=== PATIENT | female | born 1985 | race African-American/Black ===

== ENCOUNTER 2017-09-23 22:29 | Emergency (ER) | payer SELFPAY ==
[~2017-09-23] VITALS: Ht 144.8 cm; Wt 95.3 kg
[2017-09-23] MEDS ORDERED: ALBU8.5H2 (22:51)
[2017-09-23] MEDS ORDERED: ONDANSETRON 4 MG (ZOFRAN) ORAL DISSOLVE TAB ONE (23:51)
[2017-09-24] MEDS ORDERED: ANTACID SUSP 30 ML UDC (MYLANTA) PO ONE
[2017-09-24] MEDS ORDERED: ONDANSETRON 4 MG/2 ML (SDV) Z0FRAN IVP ONE
[2017-09-24] MEDS ORDERED: LIDOCAINE 2% VISCOUS 15 ML UDC PO ONE
[2017-09-24] MEDS ORDERED: ONDANSETRON 4 MG (ZOFRAN) ORAL DISSOLVE TAB SL ONE
[2017-09-24] MEDS ORDERED: FAMOTIDINE 20MG/2ML IV (PEPCID) IVP ONE (00:45)
[2017-09-24 01:04] LABS: BASOPHILS % (AUTO) 0 % (0-10); BILIRUBIN,URINE NEGATIVE (NEGATIVE); CLARITY,URINE SLIGHTLY CLOUDY; COLOR,URINE YELLOW; EOSINOPHILS # (AUTO) 0.2 10^3/uL (0.0-0.3); EOSINOPHILS % (AUTO) 3 % (0-10); GLUCOSE, URINE (UA) NEGATIVE (NEGATIVE); HEMATOCRIT 29 % (35-52); HEMOGLOBIN 8.8 G/DL (11.5-16.0); KETONES,URINE NEGATIVE (NEGATIVE); LEUKOCYTE ESTERASE ,URINE 1+ (NEGATIVE); LYMPHOCYTES # (AUTO) 2.7 X 10^3 (1.0-4.0); LYMPHOCYTES % (AUTO) 39 % (12-44); MEAN CORPUSCULAR HEMOGLOBIN 20 PG (25-34); MEAN CORPUSCULAR HGB CONC 31 G/DL (32-36); MEAN CORPUSCULAR VOLUME 65 FL (80-99); MEAN PLATELET VOLUME 11.3 FL (7.4-10.4); MONOCYTES # (AUTO) 0.5 X 10^3 (0.0-1.0); MONOCYTES % (AUTO) 7 % (0-12); NEUTROPHILS # (AUTO) 3.6 X 10^3 (1.8-7.8); NEUTROPHILS % (AUTO) 52 % (42-75); NITRITE,URINE NEGATIVE (NEGATIVE); PH,URINE 6 (5-9); PLATELET COUNT 359 10^3/uL (130-400); PROTEIN,URINE NEGATIVE (NEGATIVE); RED BLOOD COUNT 4.41 10^6/uL (4.35-5.85); RED CELL DISTRIBUTION WIDTH 18.6 % (10.0-14.5); UROBILINOGEN,URINE NORMAL (NORMAL)
[2017-09-24 01:11] LABS: BACTERIA,URINE TRACE /HPF; WBC,URINE RARE /HPF
[2017-09-24 01:20] LABS: ALANINE AMINOTRANSFERASE 8 U/L (0-55); ALBUMIN 3.9 GM/DL (3.2-4.5); ALKALINE PHOSPHATASE 72 U/L (40-136); BILIRUBIN,TOTAL 0.2 MG/DL (0.1-1.0); BUN/CREATININE RATIO 11; CARBON DIOXIDE 27 MMOL/L (21-32); CHLORIDE 106 MMOL/L (98-107); CREATININE SERUM 0.65 MG/DL (0.60-1.30); GFR ESTIMATED > 60; GLUCOSE 102 MG/DL (70-105); LIPASE 33 U/L (8-78); POTASSIUM 3.6 MMOL/L (3.6-5.0); SODIUM 140 MMOL/L (135-145); TOTAL PROTEIN 7.3 GM/DL (6.4-8.2)
[2017-09-24] MEDS ORDERED: OMEP20CA12 PO (01:30)
[2017-09-24] MEDS ORDERED: AMOX500T2 PO (01:30)
[2017-09-24] MEDS ORDERED: ONDA4TAB8 SL (01:30)
[2017-09-24] MEDS ORDERED: CLAR-19 PO (01:30)
--- NOTE | 2017-09-24 01:31 | ED Abdominal Pain ---
General Chief Complaint: Abdominal/GI Problems Stated Complaint: STOMACH PAIN Nursing Triage Note: PT PRESENTS TO ER WITH COMPLAINT OF ABDOMINAL PAIN. STATES SHE JUST MOVED HERE FROM [place]. BEFORE SHE LEFT [place], PT STATES SHE HAD AN ENDOSCOPY. SHE DOES NOT REMEMBER WHAT WAS WRONG, BUT WAS PRESCRIBED MEDICINE. DOES NOT REMEMBER WHAT MEDICINE WAS. BUT STATES SHE NEVER TOOK IT DUE TO HER [place]ORD STEALING ALL HER MEDICINE Sepsis Screen: No Definite Risk Source of Information: Patient Exam Limitations: No Limitations History of Present Illness Date Seen by Provider: Sep 23, 2017 Time Seen by Provider: 23:40 Initial Comments This 32-year-old woman presents to the emergency room with "bad stomach pain" intermittently for about 2 years. Pain is worsening. She recently moved to the area from [place]. She reports endoscopy was performed in [place] last February that resulted in the diagnosis of H. pylori. She never took the medications prescribed because they were taken by her boyfriend from whom she fled. She now lives in a safe situation. Pain is accompanied by nausea. She denies alcohol or drug use but does smoke tobacco. She has not established with a local provider and she is not taking any medication for her stomach pain. Allergies and Home Medications Allergies Coded Allergies: No Known Drug Allergies (Unverified , 09/23/17) Home Medications Amoxicillin 500 Mg Tablet, 1,000 MG PO BID Prescribed by: JOSÉ MIGUEL SIERRA on 09/24/17129 Clarithromycin 500 Mg Tablet, 500 MG PO BID Prescribed by: JOSÉ MIGUEL SIERRA on 09/24/17129 Omeprazole 20 Mg Capsule.dr, 20 MG PO BID Prescribed by: JOSÉ MIGUEL SIERRA on 09/24/17129 Ondansetron 4 Mg Tab.rapdis, 4 MG SL Q4H PRN for NAUSEA/VOMITING-1ST LINE Prescribed by: JOSÉ MIGUEL SIERRA on 09/24/17129 Patient Home Medication List Home Medication List Reviewed: Yes Review of Systems Constitutional: no symptoms reported EENTM: No Symptoms Reported Respiratory: No Symptoms Reported Cardiovascular: No Symptoms Reported Gastrointestinal: See HPI Genitourinary: No Symptoms Reported Musculoskeletal: no symptoms reported Skin: no symptoms reported Psychiatric/Neurological: No Symptoms Reported Endocrine: No Symptoms Reported Hematologic/Lymphatic: No Symptoms Reported Past Wgzlkga-Wfzuol-Pavsyd Hx Patient Social History Alcohol Use: Denies Use Recreational Drug Use: No Smoking Status: Current Someday Smoker Type Used: Cigarettes Recent Foreign Travel: No Contact w/Someone Who Travel: No Recent Infectious Disease Expo: No Recent Hopitalizations: No Seasonal Allergies Seasonal Allergies: No Surgeries History of Surgeries: Yes (HERNIA) Surgeries: Abdominal (hernia repair, upper endoscopy), Section, Tubal Ligation Respiratory History of Respiratory Disorde: Yes Respiratory Disorders: Asthma Cardiovascular History of Cardiac Disorders: No Neurological History of Neurological Disord: No Reproductive System : No Last Menstrual Period: Sep 05, 2017 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 pylori) Musculoskeletal History of Musculoskeletal Dis: No Endocrine History of Endocrine Disorders: No HEENT History of HEENT Disorders: No Cancer History of Cancer: No Psychosocial History of Psychiatric Problem: No Integumentary History of Skin or Integumenta: No Blood Transfusions History of Blood Disorders: No Physical Exam Vital Signs VS - Last 72 Hours, by Label 09/23/17 22:40 Temp 97.3 Pulse 71 Resp 17 B/P (MAP) 125/73 (90) Pulse Ox 100 O2 Delivery Room Air Capillary Refill : Less Than 3 Seconds General Appearance: WD/WN, no apparent distress HEENT: PERRL/EOMI, normal ENT inspection, pharynx normal Neck: normal inspection Respiratory: lungs clear, normal breath sounds, no respiratory distress, no accessory muscle use Cardiovascular: regular rate, rhythm, no edema, no murmur Gastrointestinal: normal bowel sounds, soft, tenderness (epigastrium) Extremities: normal inspection, no pedal edema 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, no motor/sensory deficits, alert, normal mood/affect, oriented x 3 Skin: normal color, warm/dry Progress/Results/Core Measures Results/Orders Lab Results Laboratory Tests Test 09/24/17 00:50 Range/Units White Blood Count 7.0 4.3-11.0 10^3/uL Red Blood Count 4.41 4.35-5.85 10^6/uL Hemoglobin 8.8 L 11.5-16.0 G/DL Hematocrit 29 L 35-52 % Mean Corpuscular Volume 65 L 80-99 FL Mean Corpuscular Hemoglobin 20 L 25-34 PG Mean Corpuscular Hemoglobin Concent 31 L 32-36 G/DL Red Cell Distribution Width 18.6 H 10.0-14.5 % Platelet Count 359 130-400 10^3/uL Mean Platelet Volume 11.3 H 7.4-10.4 FL Neutrophils (%) (Auto) 52 42-75 % Lymphocytes (%) (Auto) 39 12-44 % Monocytes (%) (Auto) 7 0-12 % Eosinophils (%) (Auto) 3 0-10 % Basophils (%) (Auto) 0 0-10 % Neutrophils # (Auto) 3.6 1.8-7.8 X 10^3 Lymphocytes # (Auto) 2.7 1.0-4.0 X 10^3 Monocytes # (Auto) 0.5 0.0-1.0 X 10^3 Eosinophils # (Auto) 0.2 0.0-0.3 10^3/uL Basophils # (Auto) 0.0 0.0-0.1 10^3/uL Urine Color YELLOW Urine Clarity SLIGHTLY CLOUDY Urine pH 6 5-9 Urine Specific [place] 1.020 1.016-1.022 Urine Protein NEGATIVE NEGATIVE Urine Glucose (UA) NEGATIVE NEGATIVE Urine Ketones NEGATIVE NEGATIVE Urine Nitrite NEGATIVE NEGATIVE Urine Bilirubin NEGATIVE NEGATIVE Urine Urobilinogen NORMAL NORMAL MG/DL Urine Leukocyte Esterase 1+ H NEGATIVE Urine RBC (Auto) NEGATIVE NEGATIVE Urine RBC NONE /HPF Urine WBC RARE /HPF Urine Squamous Epithelial Cells 2-5 /HPF Urine Crystals NONE /LPF Urine Bacteria TRACE /HPF Urine Casts NONE /LPF Urine Mucus NEGATIVE /LPF Urine Culture Indicated NO Sodium Level 140 135-145 MMOL/L Potassium Level 3.6 3.6-5.0 MMOL/L Chloride Level 106 98-107 MMOL/L Carbon Dioxide Level 27 21-32 MMOL/L Anion Gap 7 5-14 MMOL/L Blood Urea Nitrogen 7 7-18 MG/DL Creatinine 0.65 0.60-1.30 MG/DL Estimat Glomerular Filtration Rate > 60 BUN/Creatinine Ratio 11 Glucose Level 102 70-105 MG/DL Calcium Level 9.0 8.5-10.1 MG/DL Total Bilirubin 0.2 0.1-1.0 MG/DL Aspartate Amino Transf (AST/SGOT) 15 5-34 U/L Alanine Aminotransferase (ALT/SGPT) 8 0-55 U/L Alkaline Phosphatase 72 40-136 U/L Total Protein 7.3 6.4-8.2 GM/DL Albumin 3.9 3.2-4.5 GM/DL Lipase 33 8-78 U/L Serum Test, Qualitative NEGATIVE NEGATIVE My Orders Orders - JOSÉ MIGUEL FLYNN MD Ondansetron Injection (Zofran Injectio (09/24/17 00:00) Lidocaine 2% Viscous 15 Ml (Xylocaine Vi (09/24/17 00:00) Antacid Suspension (Mylanta Suspension (09/24/17 00:00) Ondansetron Oral Dissolve Tab (Zofran (09/23/17 23:51) Ondansetron Oral Dissolve Tab (Zofran (09/24/17 00:00) Famotidine Injection (Pepcid Injection) (09/24/17 00:45) Saline Lock/Iv-Start (09/24/17 00:38) Cbc With Automated Diff (09/24/17 00:38) Comprehensive Metabolic Panel (09/24/17 00:38) Lipase (09/24/17 00:38) Ua Culture If Indicated (09/24/17 00:38) Hcg,Qualitative Serum (09/24/17 00:47) Medications Given in ED Current Medications Medications Dose Ordered Sig/Giana Route Start Time Stop Time Status Last Admin Dose Admin Al Hydrox/Mg Hydrox/Simethicone 30 ml ONCE ONCE PO 09/24/17 00:00 09/24/17 00:01 DC 09/24/17 00:08 30 ML Famotidine 20 mg ONCE ONCE IVP 09/24/17 00:45 09/24/17 00:47 DC 09/24/17 00:56 20 MG Lidocaine HCl 15 ml ONCE ONCE PO 09/24/17 00:00 09/24/17 00:01 DC 09/24/17 00:08 15 ML Ondansetron HCl 8 mg ONCE ONCE SL 09/24/17 00:00 09/24/17 00:01 DC 09/24/17 00:00 8 MG Vital Signs/I&O Vital Sign - Last 12Hours 09/23/17 22:40 Temp 97.3 Pulse 71 Resp 17 B/P (MAP) 125/73 (90) Pulse Ox 100 O2 Delivery Room Air Blood Pressure Mean: 90 Progress Note : Progress Note Patient's symptoms improved minimally with GI cocktail and Zofran. Labs were then ordered. Pepcid was ordered by IV route. Pain eventually dissipated. Labs revealed no significant abnormalities. Patient was started on treatment for H. pylori. Departure Impression Impression: Primary Impression: Epigastric pain Additional Impressions: H pylori ulcer Nausea Anemia Qualified Codes: D64.9 - Anemia, unspecified Disposition: HOME, SELF-CARE Condition: Improved Departure-Patient Inst. Decision time for Depature: 01:20 Referrals: [facility] [place],LOCAL PHYSICIAN (PCP) Primary Care Physician Patient Instructions: Acute Abdomen (Belly Pain), H. pylori Infection Add. Discharge Instructions: Complete your antibiotics as prescribed. Continue with omeprazole as a subtherapeutic for at least one month. Establish with a primary care provider soon as possible. Return to emergency room if symptoms worsen. Zofran ( ondansetron) has been prescribed for nausea if needed. All discharge instructions reviewed with patient and/or family. Voiced understanding. Scripts Ondansetron (Zofran Odt) 4 Mg Tab.rapdis 4 MG SL Q4H Y for NAUSEA/VOMITING-1ST LINE, #10 TAB Prov: JOSÉ MIGUEL FLYNN MD 09/24/17 Amoxicillin (Amoxicillin) 500 Mg Tablet 1000 MG PO BID, #54 TAB Prov: JOSÉ MIGUEL FLYNN MD 09/24/17 Clarithromycin (Clarithromycin) 500 Mg Tablet 500 MG PO BID, #28 TAB Prov: JOSÉ MIGUEL FLYNN MD 09/24/17 Omeprazole (Omeprazole) 20 Mg Capsule.dr 20 MG PO BID, #60 CAP Prov: JOSÉ MIGUEL FLYNN MD 09/24/17 JOSÉ MIGUEL FLYNN MD Sep 24, 2017 01:31
[2017-09-24 01:40] VITALS: BP 128/80
== END 2017-09-24 01:40 | disposition home or self-care (01) ==
LOC: ER 22:32
DX: K25.9 Gastric ulcer, unspecified as acute or chronic, without hemorrhage or perforation (principal); B96.81 Helicobacter pylori [H. pylori] as the cause of diseases classified elsewhere; D64.9 Anemia, unspecified; J45.909 Unspecified asthma, uncomplicated; F17.210 Nicotine dependence, cigarettes, uncomplicated; Z87.19 Personal history of other diseases of the digestive system; Z98.51 Tubal ligation status; Z87.59 Personal history of other complications of pregnancy, childbirth and the puerperium
CPT/HCPCS: 36415; 80053; 81000; 83690; 84703; 85025; 96374

== ENCOUNTER 2017-11-22 16:58 | Emergency (ER) | payer SELFPAY ==
[~2017-11-22] VITALS: Ht 144.8 cm; Wt 96.2 kg
[~2017-11-22 16:58] MED LIST: ALBU8.5H2; AMOX500T2 PO; CLAR-19 PO; OMEP20CA12 PO; ONDA4TAB8 SL
--- NOTE | 2017-11-22 18:41 | Diagnostic Imaging Report ---
INDICATION: Right knee pain. TIME OF EXAM: 6:49 PM FINDINGS: Three views of the right knee were obtained. There is medial compartmental degenerative change with mild joint space narrowing and marginal spurring. The lateral and patellofemoral compartments are maintained. The articular surfaces are smooth. No fracture, dislocation or effusion is detected. IMPRESSION: Mild medial compartmental degenerative change. No acute bony abnormality is detected. Dictated by: Dictated on workstation # [id number]
--- NOTE | 2017-11-22 19:04 | ED Lower Extremity ---
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, STATES SWOLLEN AND PAINFUL Nursing Sepsis Screen: No Definite Risk Source: patient Exam Limitations: no limitations History of Present Illness Date Seen by Provider: November 22, 2017 Time Seen by Provider: 19:04 Allergies and Home Medications Allergies Coded Allergies: No Known Drug Allergies (Unverified , 09/23/17) Home Medications Amoxicillin 500 Mg Tablet, 1,000 MG PO BID Prescribed by: JOSÉ MIGUEL SIERRA on 09/24/17129 Clarithromycin 500 Mg Tablet, 500 MG PO BID Prescribed by: JOSÉ MIGUEL SIERRA on 09/24/17129 Omeprazole 20 Mg Capsule.dr, 20 MG PO BID Prescribed by: JOSÉ MIGUEL SIERRA on 09/24/17129 Ondansetron 4 Mg Tab.rapdis, 4 MG SL Q4H PRN for NAUSEA/VOMITING-1ST LINE Prescribed by: JOSÉ MIGUEL SIERRA on 09/24/17129 Past Hfzphfq-Jkszow-Zjrbwa Hx Patient Social History Alcohol Use: Denies Use Recreational Drug Use: Yes Smoking Status: Current Everyday Smoker Type Used: Cigarettes Recent Foreign Travel: No Contact w/Someone Who Travel: No Recent Infectious Disease Expo: No Recent Hopitalizations: No Physical Abuse: No Sexual Abuse: No Seasonal Allergies Seasonal Allergies: No Past Medical History Surgeries: Yes (HERNIA) Abdominal, Section, Tubal Ligation Respiratory: Yes Asthma Cardiac: No Neurological: No Last Menstrual Period: November 05, 2017 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 pylori) Musculoskeletal: No Endocrine: No HEENT: No Cancer: No Psychosocial: No Nursing Suicide Risk Score: 0 Integumentary: No Blood Disorders: No Physical Exam Vital Signs Vital Signs - First Documented 11/22/17 17:15 Temp 97.6 Pulse 80 Resp 18 B/P (MAP) 123/67 (85) Pulse Ox 100 Capillary Refill : Less Than 3 Seconds Progress/Results/Core Measures Results/Orders My Orders Orders - DAX ROLAND Knee, Right, 3 Views (11/22/17 18:05) Vital Signs/I&O 11/22/17 17:15 Temp 97.6 Pulse 80 Resp 18 B/P (MAP) 123/67 (85) Pulse Ox 100 Blood Pressure Mean: 85 Departure Impression Primary Impression: Sprain of knee Disposition: 01 HOME, SELF-CARE Condition: Improved Departure-Patient Inst. Decision time for Depature: 19:13 Referrals: NO,LOCAL PHYSICIAN (PCP/Family) Primary Care Physician Patient Instructions: Knee Sprain (DC) Add. Discharge Instructions: All discharge instructions reviewed with patient and/or family. Voiced understanding. Medications as instructed. Tylenol over the counter as directed for pain. Elevate the right knee on pillows and ice pack as needed. Follow-up with your family practitioner for recheck if no improvement in symptoms. Return to the emergency department for worsened symptoms or any other concerns. Scripts Diclofenac Sodium (Diclofenac Sodium) 75 Mg Tablet. 75 MG PO BID PRN for pain, #20 TAB 0 Refills Prov: DAX ROLAND 11/22/17 Work/School Note: Local [employer] Staff Listing, Work Release Form Date Seen in the Emergency Department: November 22, 2017 Return to Work: November 24, 2017 DAX ROLAND November 22, 2017 19:04
[2017-11-22] MEDS ORDERED: HYDROcodone/APAP 5 MG/325 MG (LORTAB) TAB PO STA (19:12)
[2017-11-22] MEDS ORDERED: DICL75TA2 PO (19:15)
[2017-11-22 19:23] VITALS: BP 118/67
== END 2017-11-22 19:22 | disposition home or self-care (01) ==
LOC: EDUNIT# 16:58 → ER 16:59
DX: S83.91XA Sprain of unspecified site of right knee, initial encounter (principal); J45.909 Unspecified asthma, uncomplicated; F17.210 Nicotine dependence, cigarettes, uncomplicated; Z87.59 Personal history of other complications of pregnancy, childbirth and the puerperium; Z98.51 Tubal ligation status; Z87.19 Personal history of other diseases of the digestive system; X58.XXXA Exposure to other specified factors, initial encounter
CPT/HCPCS: 73562

== ENCOUNTER 2017-12-13 15:48 | Emergency (ER) | payer MEDICAID, OTHER ==
[~2017-12-13] VITALS: Ht 144.8 cm; Wt 48.5 kg
[~2017-12-13 15:48] MED LIST changes: +DICL75TA2 PO
[2017-12-13] MEDS ORDERED: ONDANSETRON 4 MG/2 ML (SDV) Z0FRAN IVP ONE (16:45)
[2017-12-13] MEDS ORDERED: fentaNYL INJECTION 100 MCG/2 ML AMP IVP ONE (16:45)
--- NOTE | 2017-12-13 16:52 | ED Abdominal Pain ---
General Chief Complaint: Abdominal/GI Problems Stated Complaint: ABD PAIN;WRIST PAIN Nursing Triage Note: TO ROOM C/O LOW ABD PAIN ONSET LAST NIGHT DENIES ANY UTI SYMPTOMS. STATES HAS BEEN EATING,BUT DOES VOIMT AFTER. 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 Sepsis Screen: No Definite Risk Source of Information: Patient Exam Limitations: No Limitations (JOSÉ MIGUEL FLYNN MD) History of Present Illness Date Seen by Provider: Dec 13, 2017 Time Seen by Provider: 16:31 Initial Comments This 32-year-old woman presents to emergency room with intermittent sharp pain in the abdomen primarily in the suprapubic region. Pain started sometime last night. Patient has been vomiting with her meals since onset of pain. Pain is worse with certain movements including riding in a car, changing position, and sitting down completely. She denies any urinary changes. She is afebrile. She denies any constipation or diarrhea. Her last bowel movement was this morning and was normal. She denies as she has had a tubal ligation. She has no local provider because she recently moved here from [place]. She reports her pain as 9/10 at the moment. (JOSÉ MIGUEL FLYNN MD) Allergies and Home Medications Allergies Coded Allergies: No Known Drug Allergies (Unverified , 09/23/17) Home Medications Amoxicillin 500 Mg Tablet, 1,000 MG PO BID Prescribed by: JOSÉ MIGUEL POLLARD on 12/13/171757 Clarithromycin 500 Mg Tablet, 500 MG PO BID Prescribed by: JOSÉ MIGUEL POLLARD on 12/13/171757 Diclofenac Sodium 75 Mg Tablet.dr, 75 MG PO BID PRN for pain Prescribed by: DAX ROLAND on 11/22/171914 Omeprazole 20 Mg Capsule.dr, 20 MG PO BID Prescribed by: JOSÉ MIGUEL POLLARD on 12/13/171757 Ondansetron 4 Mg Tab.rapdis, 4 MG SL Q4H PRN for NAUSEA/VOMITING-1ST LINE Prescribed by: JOSÉ MIGUEL POLLARD on 09/24/17 0130 Patient Home Medication List Home Medication List Reviewed: Yes (JOSÉ MIGUEL FLYNN MD) Home Medication List Reviewed: Yes (WESLEY WARE) Review of Systems Constitutional: no symptoms reported EENTM: No Symptoms Reported Respiratory: No Symptoms Reported Cardiovascular: No Symptoms Reported Gastrointestinal: See HPI Genitourinary: No Symptoms Reported Musculoskeletal: no symptoms reported Skin: no symptoms reported Psychiatric/Neurological: No Symptoms Reported Endocrine: No Symptoms Reported Hematologic/Lymphatic: No Symptoms Reported (JOSÉ MIGUEL FLYNN MD) Past Vnvucoq-Xjsseh-Ezrcms Hx Past Med/Social Hx: Reviewed and Corrections made (JOSÉ MIGUEL FLYNN MD) Patient Social History Alcohol Use: Denies Use Recreational Drug Use: No Smoking Status: Never a Smoker Type Used: Cigarettes Recent Foreign Travel: No Contact w/Someone Who Travel: No Recent Infectious Disease Expo: No Recent Hopitalizations: No (JOSÉ MIGUEL FLYNN MD) Seasonal Allergies Seasonal Allergies: No (JOSÉ MIGUEL FLYNN MD) Past Medical History Surgeries: Yes (HERNIA) Abdominal, Section, Tubal Ligation Respiratory: Yes Asthma Cardiac: No Neurological: No : 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 pylori) Ulcer Musculoskeletal: No Endocrine: No HEENT: No Cancer: No Psychosocial: No Integumentary: No Blood Disorders: No (JOSÉ MIGUEL FLYNN MD) Physical Exam Vital Signs Vital Signs - First Documented 12/13/17 16:05 Temp 97.2 Pulse 107 Resp 18 B/P (MAP) 132/80 (97) Pulse Ox 100 (JEANIE,WESLEY J) Vital Signs Capillary Refill : Less Than 3 Seconds (JOSÉ MIGUEL FLYNN MD) General Appearance: WD/WN, no apparent distress, obese HEENT: PERRL/EOMI, normal ENT inspection Neck: normal inspection Respiratory: lungs clear, normal breath sounds, no respiratory distress, no accessory muscle use Cardiovascular: regular rate, rhythm, no edema, no murmur Gastrointestinal: normal bowel sounds, soft, tenderness (right suprapubic region moderate to severe. Mild in the epigastric region. Positive psoas bilaterally. 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, no motor/sensory deficits, alert, normal mood/affect, oriented x 3 Skin: normal color, warm/dry (JOSÉ MIGUEL FLYNN MD) Progress/Results/Core Measures Results/Orders Lab Results Laboratory Tests Test 12/13/17 16:40 12/13/17 16:52 Range/Units Urine Color YELLOW Urine Clarity CLEAR Urine pH 6.5 5-9 Urine Specific [place] 1.015 L 1.016-1.022 Urine Protein 1+ H NEGATIVE Urine Glucose (UA) NEGATIVE NEGATIVE Urine Ketones NEGATIVE NEGATIVE Urine Nitrite NEGATIVE NEGATIVE Urine Bilirubin NEGATIVE NEGATIVE Urine Urobilinogen 1 NORMAL MG/DL Urine Leukocyte Esterase 1+ H NEGATIVE Urine RBC (Auto) NEGATIVE NEGATIVE Urine RBC NONE /HPF Urine WBC 0-2 /HPF Urine Squamous Epithelial Cells 2-5 /HPF Urine Crystals NONE /LPF Urine Bacteria MODERATE H /HPF Urine Casts NONE /LPF Urine Mucus NEGATIVE /LPF Urine Culture Indicated YES White Blood Count 9.6 4.3-11.0 10^3/uL Red Blood Count 4.31 L 4.35-5.85 10^6/uL Hemoglobin 8.6 L 11.5-16.0 G/DL Hematocrit 28 L 35-52 % Mean Corpuscular Volume 64 L 80-99 FL Mean Corpuscular Hemoglobin 20 L 25-34 PG Mean Corpuscular Hemoglobin Concent 31 L 32-36 G/DL Red Cell Distribution Width 18.0 H 10.0-14.5 % Platelet Count 433 H 130-400 10^3/uL Mean Platelet Volume 10.9 H 7.4-10.4 FL Neutrophils (%) (Auto) 59 42-75 % Lymphocytes (%) (Auto) 30 12-44 % Monocytes (%) (Auto) 9 0-12 % Eosinophils (%) (Auto) 3 0-10 % Basophils (%) (Auto) 0 0-10 % Neutrophils # (Auto) 5.7 1.8-7.8 X 10^3 Lymphocytes # (Auto) 2.8 1.0-4.0 X 10^3 Monocytes # (Auto) 0.8 0.0-1.0 X 10^3 Eosinophils # (Auto) 0.3 0.0-0.3 10^3/uL Basophils # (Auto) 0.0 0.0-0.1 10^3/uL Sodium Level 140 135-145 MMOL/L Potassium Level 4.0 3.6-5.0 MMOL/L Chloride Level 107 98-107 MMOL/L Carbon Dioxide Level 24 21-32 MMOL/L Anion Gap 9 5-14 MMOL/L Blood Urea Nitrogen 8 7-18 MG/DL Creatinine 0.66 0.60-1.30 MG/DL Estimat Glomerular Filtration Rate > 60 BUN/Creatinine Ratio 12 Glucose Level 89 70-105 MG/DL Calcium Level 9.0 8.5-10.1 MG/DL Total Bilirubin 0.2 0.1-1.0 MG/DL Aspartate Amino Transf (AST/SGOT) 20 5-34 U/L Alanine Aminotransferase (ALT/SGPT) 18 0-55 U/L Alkaline Phosphatase 77 40-136 U/L Total Protein 7.9 6.4-8.2 GM/DL Albumin 4.0 3.2-4.5 GM/DL Lipase 30 8-78 U/L Serum Test, Qualitative NEGATIVE NEGATIVE (WESLEY WARE) My Orders Orders - WESLEY WARE Iohexol Injection (Omnipaque 350 Mg/Ml 1 (12/13/17 18:15) Ns (Ivpb) (Sodium Chloride 0.9%) (12/13/17 18:15) (WESLEY WARE) Medications Given in ED Current Medications Medications Dose Ordered Sig/Giana Route Start Time Stop Time Status Last Admin Dose Admin Fentanyl Citrate 50 mcg ONCE ONCE IVP 12/13/17 16:45 12/13/17 16:46 DC 12/13/17 16:56 50 MCG Iohexol 100 ml ONCE ONCE IV 12/13/17 18:15 12/13/17 18:16 DC 12/13/17 18:11 100 ML Ondansetron HCl 4 mg ONCE ONCE IVP 12/13/17 16:45 12/13/17 16:46 DC 12/13/17 16:56 4 MG Sodium Chloride 250 ml ONCE ONCE IV 12/13/17 18:15 12/13/17 18:16 DC 12/13/17 18:11 80 ML (WESLEY WARE) Vital Signs/I&O 12/13/17 16:05 Temp 97.2 Pulse 107 Resp 18 B/P (MAP) 132/80 (97) Pulse Ox 100 (WESLEY WARE) Blood Pressure Mean: 97 Progress Progress Note #1: Time: 16:56 Progress Note Patient was seen and examined. Labs were ordered. Zofran and fentanyl were ordered for symptom management. Imaging studies will be ordered pending review of labs. Progress Note #2: Time: 17:42 Progress Note Medications have improved symptoms. I discussed options for further workup with the patient which would possibly include ultrasound of the pelvis and gallbladder versus CT scan versus careful observation with treatment of symptoms. Patient elects CT scan after discussion of risks and benefits. Risks discussed included radiation exposure, increased risk for cancer, and exposure to contrast dye. (JOSÉ MIGUEL FLYNN MD) Progress Note : Time: 17:51 Progress Note Assume care of the patient at 1745 workup for periumbilical and right lower quadrant/right of the suprapubic midline lower abdominal pain. She is also having some epigastric pain/burning. CT scan has been ordered and results are pending. Urinalysis is also pending. Other labs of been reviewed. History and examination have been repeated and agree with the history and findings as documented by Dr. Pollard. White count and lipase are negative. Urinalysis unremarkable. She is not . There is a history of H. pylori positive based on history that was prescribed a 3 or 4 drug regimen previously by Dr. 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 She does have a history of microcytic anemia and has been encouraged to follow up outpatient with her doctor to have this worked up. It is not critical today. 1835: CT demonstrates normal enter abdominal and pelvic organs that her main but there is some evidence of inflammatory sacroiliitis which may or may not be related to her current symptoms today. We'll recommend she follow up with her primary care doctor outpatient for further workup of her anemia, history of H. pylori ulcer and abdominal pain. (WESLEY WARE) Diagnostic Imaging Diagonstic Imaging: CT Plain Films/CT/US/NM/MRI: abdomen, pelvis Comments VIA [facility]. [place], [place] NAME: TARUN SINGH [facility] REC#: [id number] PT STATUS: REG ER : 1985 PHYSICIAN: JOSÉ MIGUEL FLYNN MD ADMIT DATE: 12/13/17/ER Draft Date of Exam:12/13/17 CT ABD/PELV W (APPENDICITIS) PROCEDURE: CT abdomen and pelvis with contrast, rule out appendicitis. TECHNIQUE: Multiple contiguous axial images were obtained through the abdomen and pelvis after the administration of intravenous contrast. INDICATION: Right lower quadrant pain and periumbilical pain for one day with nausea and vomiting. COMPARISON: No prior studies are available for comparison. FINDINGS: The lung bases are clear. There is mild generalized low density throughout the liver suggestive of hepatic steatosis. No discrete liver mass is identified. There appears to be a tiny stone within the gallbladder. The pancreas and spleen are unremarkable. No adrenal mass is detected. The kidneys are unremarkable. Aorta is nonaneurysmal. The small and large bowel loops are normal caliber. The appendix is visualized in the right lower quadrant and appears unremarkable. No significant inflammatory stranding or thickening is identified. There do appear to be small follicles on the right ovary. No free fluid is seen. The bladder is unremarkable. There is sclerosis of bilateral sacroiliac joints suggestive of sacroiliitis. IMPRESSION: 1. Cholelithiasis. 2. No CT evidence of acute appendicitis. 3. Findings suggestive of sacroiliitis. Dictated on workstation # [id number] Dict: 12/13/17 1818 Trans: 12/13/17 1829 [id number] Interpreted by: DANIEL BARRIGA MD Electronically signed by: Reviewed: Reviewed by Az (WESLEY WARE) Transfer of Care Time: 17:45 Care transferred to: JEANIE (WESLEY WARE) Departure Impression Primary Impression: Right lower quadrant pain Additional Impressions: Microcytic anemia Epigastric pain Disposition: 01 HOME, SELF-CARE Condition: Stable Departure-Patient Inst. Decision time for Depature: 19:17 (WESLEY WARE) Referrals: NO,LOCAL PHYSICIAN (PCP/Family) Primary Care Physician Patient Instructions: LOCAL PHYSICIAN LIST, Peptic Ulcers (DC) Add. Discharge Instructions: Establish with a primary care provider as soon as possible. Complete the entire course of antibiotics and omeprazole for H. pylori. Return to care if symptoms worsen. All discharge instructions reviewed with patient and/or family. Voiced understanding. Scripts Amoxicillin (Amoxicillin) 500 Mg Tablet 1000 MG PO BID, #54 TAB Prov: JOSÉ MIGUEL FLYNN MD 12/13/17 Clarithromycin (Clarithromycin) 500 Mg Tablet 500 MG PO BID, #28 TAB Prov: JOSÉ MIGUEL FLYNN MD 12/13/17 Omeprazole (Omeprazole) 20 Mg Capsule. 20 MG PO BID, #60 CAP Prov: JOSÉ MIGUEL FLYNN MD 12/13/17 JOSÉ MIGUEL FLYNN MD Dec 13, 2017 16:52 WESLEY WARE Dec 13, 2017 17:54
[2017-12-13 16:57] LABS: BASOPHILS % (AUTO) 0 % (0-10); EOSINOPHILS # (AUTO) 0.3 10^3/uL (0.0-0.3); EOSINOPHILS % (AUTO) 3 % (0-10); HEMATOCRIT 28 % (35-52); HEMOGLOBIN 8.6 G/DL (11.5-16.0); LYMPHOCYTES # (AUTO) 2.8 X 10^3 (1.0-4.0); LYMPHOCYTES % (AUTO) 30 % (12-44); MEAN CORPUSCULAR HEMOGLOBIN 20 PG (25-34); MEAN CORPUSCULAR HGB CONC 31 G/DL (32-36); MEAN CORPUSCULAR VOLUME 64 FL (80-99); MEAN PLATELET VOLUME 10.9 FL (7.4-10.4); MONOCYTES # (AUTO) 0.8 X 10^3 (0.0-1.0); MONOCYTES % (AUTO) 9 % (0-12); NEUTROPHILS # (AUTO) 5.7 X 10^3 (1.8-7.8); NEUTROPHILS % (AUTO) 59 % (42-75); PLATELET COUNT 433 10^3/uL (130-400); RED BLOOD COUNT 4.31 10^6/uL (4.35-5.85); WHITE BLOOD COUNT 9.6 10^3/uL (4.3-11.0)
[2017-12-13 17:21] LABS: ALANINE AMINOTRANSFERASE 18 U/L (0-55); ALKALINE PHOSPHATASE 77 U/L (40-136); BILIRUBIN,TOTAL 0.2 MG/DL (0.1-1.0); BUN/CREATININE RATIO 12; CARBON DIOXIDE 24 MMOL/L (21-32); CHLORIDE 107 MMOL/L (98-107); CREATININE SERUM 0.66 MG/DL (0.60-1.30); GFR ESTIMATED > 60; GLUCOSE 89 MG/DL (70-105); LIPASE 30 U/L (8-78); SODIUM 140 MMOL/L (135-145); TOTAL PROTEIN 7.9 GM/DL (6.4-8.2)
[2017-12-13 17:40] LABS: BILIRUBIN,URINE NEGATIVE (NEGATIVE); CLARITY,URINE CLEAR; COLOR,URINE YELLOW; GLUCOSE, URINE (UA) NEGATIVE (NEGATIVE); KETONES,URINE NEGATIVE (NEGATIVE); LEUKOCYTE ESTERASE ,URINE 1+ (NEGATIVE); NITRITE,URINE NEGATIVE (NEGATIVE); PH,URINE 6.5 (5-9); PROTEIN,URINE 1+ (NEGATIVE); UROBILINOGEN,URINE 1 MG/DL (NORMAL)
[2017-12-13 17:49] LABS: BACTERIA,URINE MODERATE /HPF; WBC,URINE 0-2 /HPF
[2017-12-13] MEDS ORDERED: CLAR-19 PO (17:58)
[2017-12-13] MEDS ORDERED: AMOX500T2 PO (17:58)
[2017-12-13] MEDS ORDERED: OMEP20CA12 PO (17:58)
[2017-12-13] MEDS ORDERED: IOHEXOL 350 MG/ML 100 ML (OMNIPAQUE 350) VIAL IV ONE (18:15)
[2017-12-13] MEDS ORDERED: NS 250 ML (IVPB) BAG IV ONE (18:15)
--- NOTE | 2017-12-13 18:29 | Diagnostic Imaging Report ---
PROCEDURE: CT abdomen and pelvis with contrast, rule out appendicitis. TECHNIQUE: Multiple contiguous axial images were obtained through the abdomen and pelvis after the administration of intravenous contrast. INDICATION: Right lower quadrant pain and periumbilical pain for one day with nausea and vomiting. COMPARISON: No prior studies are available for comparison. FINDINGS: The lung bases are clear. There is mild generalized low density throughout the liver suggestive of hepatic steatosis. No discrete liver mass is identified. There appears to be a tiny stone within the gallbladder. The pancreas and spleen are unremarkable. No adrenal mass is detected. The kidneys are unremarkable. Aorta is nonaneurysmal. The small and large bowel loops are normal caliber. The appendix is visualized in the right lower quadrant and appears unremarkable. No significant inflammatory stranding or thickening is identified. There do appear to be small follicles on the right ovary. No free fluid is seen. The bladder is unremarkable. There is sclerosis of bilateral sacroiliac joints suggestive of sacroiliitis. IMPRESSION: 1. Cholelithiasis. 2. No CT evidence of acute appendicitis. 3. Findings suggestive of sacroiliitis. Dictated by: Dictated on workstation # [id number]
[2017-12-13 19:32] VITALS: BP 128/79
== END 2017-12-13 19:32 | disposition home or self-care (01) ==
LOC: EDUNIT# 15:48 → ER 15:50
DX: R10.13 Epigastric pain (principal); R10.31 Right lower quadrant pain; D50.9 Iron deficiency anemia, unspecified; J45.909 Unspecified asthma, uncomplicated; Z87.19 Personal history of other diseases of the digestive system; Z87.59 Personal history of other complications of pregnancy, childbirth and the puerperium; Z98.51 Tubal ligation status
CPT/HCPCS: 36415; 74177; 80053; 81000; 83690; 84703; 85025; 87088; 96374; 96375

== ENCOUNTER 2018-01-07 11:34 | Emergency (ER) | payer MEDICAID ==
[~2018-01-07] VITALS: Ht 144.8 cm; Wt 95.3 kg
[2018-01-07] MEDS ORDERED: FAMOTIDINE 20 MG (PEPCID) TABLET PO STA (11:59)
[2018-01-07] MEDS ORDERED: LACTATED RINGERS 1,000 ML IV STA (11:59)
[2018-01-07] MEDS ORDERED: ANTACID SUSP 30 ML UDC (MYLANTA) PO ONE (12:00)
[2018-01-07] MEDS ORDERED: LIDOCAINE 2% VISCOUS 15 ML UDC PO ONE (12:00)
[2018-01-07] MEDS ORDERED: KETOROLAC 30 MG/ML VIAL IVP ONE (12:00)
--- NOTE | 2018-01-07 12:07 | ED Abdominal Pain ---
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 She points to her mid epigastric region. She says sometimes she'll get this pain although never this bad. Today it was 10 out of 10. It is currently 9 out of 10. She says sometimes leaning over the couch will help it go away but this only made it worse today. She laid on the floor and that did not help. She took some Tums and they did not make a difference. She's has a history of H. pylori which she was prescribed medications in [place] but was unable to take them due to social reasons so since she's moved appear she's not been able to afford them and she is still waiting for her insurance to help her cover them. She does not have any coronary history and does not smoke cigarettes. She does not have diabetes. She says she does not have pancreatitis. She had a bowel movement this morning about an hour or 2 before the pain started and it was normal formed. She has not had anything to eat today. She had a but no other surgeries on her belly. No trauma. She's had an EGD but no colonoscopies. She's having no nausea, sweats, chills, fever, constipation or diarrhea. Allergies and Home Medications Allergies Coded Allergies: No Known Drug Allergies (Unverified , 09/23/17) Home Medications Amoxicillin 500 Mg Tablet, 1,000 MG PO BID Prescribed by: JOSÉ MIGUEL SIERRA on 12/13/171757 Clarithromycin 500 Mg Tablet, 500 MG PO BID Prescribed by: JOSÉ MIGUEL SIERRA on 12/13/171757 Diclofenac Sodium 75 Mg Tablet., 75 MG PO BID PRN for pain Prescribed by: DAX ROLAND on 11/22/171914 Omeprazole 20 Mg Capsule., 20 MG PO BID Prescribed by: JOSÉ MIGUEL SIERRA on 12/13/171757 Ondansetron 4 Mg Tab.rapdis, 4 MG SL Q4H PRN for NAUSEA/VOMITING-1ST LINE Prescribed by: JOSÉ MIGUEL SIERRA on 09/24/17 0130 Patient Home Medication List Home Medication List Reviewed: Yes Review of Systems Constitutional: No chills; dizziness; No fever, No malaise, No weakness EENTM: No Blurred Vision, No Double Vision, No Eye Pain Respiratory: Denies Cough, Denies Shortness of Air Cardiovascular: See HPI, Chest Pain; Denies Edema Gastrointestinal: Denies Abdomen Distended; Abdominal Pain; Denies Constipated , Denies Diarrhea, Denies Nausea, Denies Poor Fluid Intake Genitourinary: Denies Burning, Denies Discharge, Denies Drainage Musculoskeletal: No back pain, No joint pain Skin: No pruritus, No rash Psychiatric/Neurological: Denies Headache, Denies Numbness, Denies Paresthesia Past Yrvtctr-Itclhk-Rihtlm Hx Patient Social History Alcohol Use: Denies Use Recreational Drug Use: No Smoking Status: Current Someday Smoker Type Used: Cigarettes Recent Foreign Travel: No Contact w/Someone Who Travel: No Recent Infectious Disease Expo: No Recent Hopitalizations: No Physical Abuse: No Sexual Abuse: No Seasonal Allergies Seasonal Allergies: No Past Medical History Surgeries: Yes (HERNIA) Abdominal, Section, Tubal Ligation Respiratory: Yes Asthma Cardiac: No Neurological: No 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 pylori) Ulcer Musculoskeletal: No Endocrine: No HEENT: No Cancer: No Psychosocial: No Nursing Suicide Risk Score: 0 Integumentary: No Blood Disorders: No Physical Exam Vital Signs Vital Signs - First Documented Capillary Refill : Less Than 3 Seconds Height/Weight/BMI Height: 4', 9.00" Weight: 210lbs oz, 95.545096kp Method:Stated ,BMI General Appearance: WD/WN, no apparent distress HEENT: PERRL/EOMI, pharynx normal Neck: non-tender, full range of motion Respiratory: chest non-tender, lungs clear, normal breath sounds, no respiratory distress, no accessory muscle use Cardiovascular: normal peripheral pulses, regular rate, rhythm, no edema Peripheral Pulses: 2+ Radial Pulses (R), 2+ Radial Pulses (L) Gastrointestinal: soft; No guarding, No rebound; tenderness (diffusely but especially midepigastric and left upper quadrant and right upper quadrant.) Extremities: normal range of motion, non-tender, normal inspection, no pedal edema Neurologic/Psychiatric: alert, normal mood/affect, oriented x 3 Skin: normal color, warm/dry Progress/Results/Core Measures Results/Orders Lab Results Laboratory Tests Test 01/07/18 11:46 01/07/18 12:02 Range/Units White Blood Count 7.2 4.3-11.0 10^3/uL Red Blood Count 4.55 4.35-5.85 10^6/uL Hemoglobin 9.0 L 11.5-16.0 G/DL Hematocrit 29 L 35-52 % Mean Corpuscular Volume 64 L 80-99 FL Mean Corpuscular Hemoglobin 20 L 25-34 PG Mean Corpuscular Hemoglobin Concent 31 L 32-36 G/DL Red Cell Distribution Width 18.4 H 10.0-14.5 % Platelet Count 355 130-400 10^3/uL Mean Platelet Volume 11.5 H 7.4-10.4 FL Neutrophils (%) (Auto) 59 42-75 % Lymphocytes (%) (Auto) 29 12-44 % Monocytes (%) (Auto) 9 0-12 % Eosinophils (%) (Auto) 3 0-10 % Basophils (%) (Auto) 0 0-10 % Neutrophils # (Auto) 4.2 1.8-7.8 X 10^3 Lymphocytes # (Auto) 2.1 1.0-4.0 X 10^3 Monocytes # (Auto) 0.7 0.0-1.0 X 10^3 Eosinophils # (Auto) 0.2 0.0-0.3 10^3/uL Basophils # (Auto) 0.0 0.0-0.1 10^3/uL Sodium Level 140 135-145 MMOL/L Potassium Level 3.9 3.6-5.0 MMOL/L Chloride Level 108 H 98-107 MMOL/L Carbon Dioxide Level 21 21-32 MMOL/L Anion Gap 11 5-14 MMOL/L Blood Urea Nitrogen 8 7-18 MG/DL Creatinine 0.65 0.60-1.30 MG/DL Estimat Glomerular Filtration Rate > 60 BUN/Creatinine Ratio 12 Glucose Level 86 70-105 MG/DL Calcium Level 9.0 8.5-10.1 MG/DL Magnesium Level 2.0 1.8-2.4 MG/DL Total Bilirubin 0.4 0.1-1.0 MG/DL Aspartate Amino Transf (AST/SGOT) 16 5-34 U/L Alanine Aminotransferase (ALT/SGPT) 11 0-55 U/L Alkaline Phosphatase 71 40-136 U/L Troponin I < 0.30 <0.30 NG/ML Total Protein 7.5 6.4-8.2 GM/DL Albumin 3.9 3.2-4.5 GM/DL Lipase 16 8-78 U/L Serum Alcohol < 10 <10 MG/DL Urine Color YELLOW Urine Clarity SLIGHTLY CLOUDY Urine pH 5 5-9 Urine Specific Phil Campbell 1.025 H 1.016-1.022 Urine Protein 1+ H NEGATIVE Urine Glucose (UA) NEGATIVE NEGATIVE Urine Ketones NEGATIVE NEGATIVE Urine Nitrite NEGATIVE NEGATIVE Urine Bilirubin NEGATIVE NEGATIVE Urine Urobilinogen NORMAL NORMAL MG/DL Urine Leukocyte Esterase 1+ H NEGATIVE Urine RBC (Auto) NEGATIVE NEGATIVE Urine RBC NONE /HPF Urine WBC 0-2 /HPF Urine Squamous Epithelial Cells 10-25 H /HPF Urine Crystals NONE /LPF Urine Bacteria FEW H /HPF Urine Casts NONE /LPF Urine Mucus NEGATIVE /LPF Urine Yeast FEW H /HPF Urine Culture Indicated NO Urine Test NEGATIVE NEGATIVE My Orders Orders - WESLEY WARE Alcohol (01/07/18 11:59) Cbc With Automated Diff (01/07/18 11:59) Comprehensive Metabolic Panel (01/07/18 11:59) Hcg,Qualitative Urine (01/07/18 11:59) Lipase (01/07/18 11:59) Magnesium (01/07/18 11:59) Troponin I (01/07/18 11:59) Ua Culture If Indicated (01/07/18 11:59) Lidocaine 2% Viscous 15 Ml (Xylocaine Vi (01/07/18 12:00) Famotidine Tablet (Pepcid Tablet) (01/07/18 11:59) Antacid Suspension (Mylanta Suspension (01/07/18 12:00) Lactated Ringers (Lr 1000 Ml Iv Solution (01/07/18 11:59) Saline Lock/Iv-Start (01/07/18 11:59) Ketorolac Injection (Toradol Injection) (01/07/18 12:00) Ekg Tracing (01/07/18 11:59) Fentanyl Injection (Sublimaze Injection (01/07/18 13:30) Ct Abdomen/Pelvis W (01/07/18 13:20) Chest Pa/Lat (2 View) (01/07/18 13:38) Loratadine Tablet (Claritin Tablet) (01/07/18 14:00) Diphenhydramine Injection (Benadryl Inje (01/07/18 14:00) Medications Given in ED Current Medications Medications Dose Ordered Sig/Giana Route Start Time Stop Time Status Last Admin Dose Admin Al Hydrox/Mg Hydrox/Simethicone 30 ml ONCE ONCE PO 01/07/18 12:00 01/07/18 12:05 DC 01/07/18 12:25 30 ML Diphenhydramine HCl 25 mg ONCE ONCE IVP 01/07/18 14:00 01/07/18 14:01 DC 01/07/18 13:55 25 MG Fentanyl Citrate 50 mcg ONCE ONCE IVP 01/07/18 13:30 01/07/18 13:31 DC 01/07/18 13:35 50 MCG Ketorolac Tromethamine 15 mg ONCE ONCE IVP 01/07/18 12:00 01/07/18 12:05 DC 01/07/18 12:24 15 MG Lidocaine HCl 15 ml ONCE ONCE PO 01/07/18 12:00 01/07/18 12:05 DC 01/07/18 12:25 15 ML Loratadine 10 mg ONCE ONCE PO 01/07/18 14:00 01/07/18 14:01 DC 01/07/18 14:22 10 MG Vital Signs/I&O 01/07/18 01/07/18 11:40 11:40 Temp 98.6 Pulse 82 Resp 18 B/P (MAP) 132/76 (94) Pulse Ox 100 O2 Delivery Room Air Room Air Blood Pressure Mean: 94 Progress Progress Note #1: Time: 12:23 Progress Note Chest pain does not seem to be cardiogenic since she points to her midepigastric region has diffuse tenderness in her abdomen. We will get the EKG and troponin but this seems to be an abdominal pain. Given her history of H. pylori that was untreated peptic ulcer disease is possible as well as pancreatitis and she does drink and had a drink last night. Also possible she could be having gallbladder involvement. We'll hold off doing any imaging until we see her labs. We'll try GI cocktail and some Toradol for her pain and see if these improve her symptoms. Progress Note #2: Time: 15:03 Progress Note We could not find anything dangerous or surgical pathology today however she does have a gallstone and a history of H. pylori. Put her on Carafate and omeprazole and have her follow-up with her primary care doctor to further workup her gallbladder. She is eating crackers and tolerating them. Initial ECG Impression Date: Jan 07, 2018 Initial ECG Impression Time: 11:36 Initial ECG Rate: 79 Initial ECG Rhythm: Normal Sinus Initial ECG Intervals: Normal Initial ECG Impression: Normal Initial ECG Comparisson: No Previous ECG Available Comment No ST elevation or depression Diagnostic Imaging Diagonstic Imaging: Xray Plain Films/CT/US/NM/MRI: chest (2v) Comments [facility] [place] NAME: [facility] REC#: [id number] PT STATUS: REG ER : 1985 PHYSICIAN: WESLEY WARE MD ADMIT DATE: 01/07/18/ER Draft Date of Exam:01/07/18 CHEST PA/LAT (2 VIEW) EXAMINATION: PA and lateral chest at 2:37 p.m. INDICATION: Left-sided chest pain. COMPARISON: There are no prior studies available for comparison. FINDINGS: The heart size is within normal limits. The lungs are clear. There is no evidence for failure, pneumonia, or for a pleural effusion to suggest an acute abnormality. The mediastinum is not widened. The osseous structures are intact. There is excretion of the contrast used for the CT abdomen/pelvis exam performed earlier today by both kidneys. IMPRESSION: There is no evidence for an acute cardiopulmonary abnormality. Dictated on workstation # [id number] Dict: 01/07/18 1424 Trans: 01/07/18 1432 [id number] Interpreted by: MYRA HINOJOSA MD Electronically signed by: Reviewed: Reviewed by Me Diagonstic Imaging: CT (W/ contrast) Plain Films/CT/US/NM/MRI: abdomen, pelvis Comments [facility] NAME[facility] REC#: [id number] PT STATUS: REG ER : 1985 PHYSICIAN: WESLEY WARE MD ADMIT DATE: 01/07/18/ER Draft Date of Exam:01/07/18 CT ABDOMEN/PELVIS W PROCEDURE: CT abdomen and pelvis with contrast. TECHNIQUE: Multiple contiguous axial images were obtained through the abdomen and pelvis after administration of intravenous contrast. DATE: January 07, 2018. COMPARISON: CT abdomen and pelvis December 13, 2017. INDICATION: 32-year-old female, abdominal pain. FINDINGS: The visualized portions of the lung bases are clear. The heart is not enlarged. There is no pericardial effusion. The liver is normal in size and contour. There is no identified liver lesion. The main, right, and left portal veins are patent. There is a small gallstone on axial image 28. There is no evidence of acute cholecystitis. There is no intrahepatic or extrahepatic bile duct dilation. The main pancreatic duct is not abnormally dilated. The pancreatic parenchyma is unremarkable. The spleen is normal in size. The adrenal glands are unremarkable. Unremarkable appearance of the renal parenchyma. The urinary collecting systems are not distended. There is no identified renal or ureteral stone. The urinary bladder is unremarkable. There is a low-attenuation right adnexal lesion on axial image 64 measuring 1.9 cm in size likely relating to ovarian cyst. The intestinal tract is not distended. The appendix is best seen on axial image 53 and adjacent sequential images. There is no evidence of acute appendicitis. There is no free intraperitoneal air. There is no drainable fluid collection. There is no free pelvic fluid. There is no identified abnormally enlarged lymph node within the abdomen or pelvis, which meets CT size criteria for adenopathy. There is lack of normal concavity of the bilateral femoral head-neck junctions. There are erosions adjacent to both sacroiliac joints. The bones appear questionably diffusely sclerotic. The hip joint spaces appear well preserved. IMPRESSION: CT ABDOMEN AND PELVIS. 1. No identified acute abnormality within the abdomen or pelvis. 2. 1.9 cm probable right ovarian cyst. 3. Cholelithiasis without evidence of acute cholecystitis. 4. Bilateral sacroiliac joint erosions. The bones are questionably diffusely sclerotic. Differential diagnostic considerations for the sacroiliac joint erosions would include seronegative spondyloarthropathy. Other processes such as hyperparathyroidism would be included in the differential diagnosis. The kidneys are unremarkable in appearance. Correlation with laboratory values and further workup as needed is recommended. Dictated on workstation # [id number] Dict: 01/07/18 1358 Trans: 01/07/18 1411 [id number] Interpreted by: TAMELA CARTER MD Electronically signed by: Reviewed: Reviewed by Me Departure Impression Primary Impression: Diffuse abdominal pain Additional Impression: Microcytic anemia Disposition: HOME, SELF-CARE Condition: Improved Departure-Patient Inst. Decision time for Depature: 15:03 Referrals: NO,LOCAL PHYSICIAN (PCP/Family) Primary Care Physician Patient Instructions: Acute Abdomen (Belly Pain), Adult (DC) Add. Discharge Instructions: supervisor insecticide an antacid medicine such as omeprazole 40 mg once a day or Pepcid 20 mg twice a day or ranitidine 150 mg twice a day. Use this medicine on a daily basis for the next 4 weeks. supervisor insecticide the Carafate from the pharmacy and start taking 1 tablet half an hour before meals and at bedtime for the next 2 weeks. Follow-up with your primary care provider in the next 2-4 weeks to further workup your gallbladder, abdominal pain and history of H. pylori. Return to the ER to begin to experience severe chest pain, nausea vomiting, fevers chills or other worrisome symptoms. All discharge instructions reviewed with patient and/or family. Voiced understanding. Scripts Omeprazole (Omeprazole) 40 Mg Capsule.dr 40 MG PO DAILY for 30 Days, #30 CAP 0 Refills Prov: WESLEY WARE 01/07/18 Sucralfate (Carafate) 1 Gm Tablet 1 GM PO QIDACHS for 14 Days, #56 TAB 0 Refills Prov: WESLEY WARE 01/07/18 Copy Copies To 1: OSWALD AMES DO WESLEY WARE Jan 07, 2018 12:07
[2018-01-07 12:11] LABS: BILIRUBIN,URINE NEGATIVE (NEGATIVE); CLARITY,URINE SLIGHTLY CLOUDY; COLOR,URINE YELLOW; GLUCOSE, URINE (UA) NEGATIVE (NEGATIVE); KETONES,URINE NEGATIVE (NEGATIVE); LEUKOCYTE ESTERASE ,URINE 1+ (NEGATIVE); NITRITE,URINE NEGATIVE (NEGATIVE); PH,URINE 5 (5-9); PROTEIN,URINE 1+ (NEGATIVE); UROBILINOGEN,URINE NORMAL (NORMAL)
[2018-01-07 12:13] LABS: BASOPHILS % (AUTO) 0 % (0-10); EOSINOPHILS # (AUTO) 0.2 10^3/uL (0.0-0.3); EOSINOPHILS % (AUTO) 3 % (0-10); HEMATOCRIT 29 % (35-52); LYMPHOCYTES # (AUTO) 2.1 X 10^3 (1.0-4.0); LYMPHOCYTES % (AUTO) 29 % (12-44); MEAN CORPUSCULAR HEMOGLOBIN 20 PG (25-34); MEAN CORPUSCULAR HGB CONC 31 G/DL (32-36); MEAN CORPUSCULAR VOLUME 64 FL (80-99); MEAN PLATELET VOLUME 11.5 FL (7.4-10.4); MONOCYTES # (AUTO) 0.7 X 10^3 (0.0-1.0); MONOCYTES % (AUTO) 9 % (0-12); NEUTROPHILS # (AUTO) 4.2 X 10^3 (1.8-7.8); NEUTROPHILS % (AUTO) 59 % (42-75); PLATELET COUNT 355 10^3/uL (130-400); RED BLOOD COUNT 4.55 10^6/uL (4.35-5.85); RED CELL DISTRIBUTION WIDTH 18.4 % (10.0-14.5); WHITE BLOOD COUNT 7.2 10^3/uL (4.3-11.0)
[2018-01-07 12:19] LABS: BACTERIA,URINE FEW /HPF; WBC,URINE 0-2 /HPF; YEAST,URINE FEW /HPF
[2018-01-07 12:25] LABS: ALANINE AMINOTRANSFERASE 11 U/L (0-55); ALBUMIN 3.9 GM/DL (3.2-4.5); ALKALINE PHOSPHATASE 71 U/L (40-136); BILIRUBIN,TOTAL 0.4 MG/DL (0.1-1.0); BUN/CREATININE RATIO 12; CARBON DIOXIDE 21 MMOL/L (21-32); CHLORIDE 108 MMOL/L (98-107); CREATININE SERUM 0.65 MG/DL (0.60-1.30); GFR ESTIMATED > 60; GLUCOSE 86 MG/DL (70-105); LIPASE 16 U/L (8-78); POTASSIUM 3.9 MMOL/L (3.6-5.0); SODIUM 140 MMOL/L (135-145); TOTAL PROTEIN 7.5 GM/DL (6.4-8.2)
[2018-01-07] MEDS ORDERED: fentaNYL INJECTION 100 MCG/2 ML AMP IVP ONE (13:30)
[2018-01-07] MEDS ORDERED: LORATADINE (CLARITIN) 10 MG TAB PO ONE (14:00)
[2018-01-07] MEDS ORDERED: diphenhydrAMINE 50 MG/ML INJ (BENADRYL) IVP ONE (14:00)
--- NOTE | 2018-01-07 14:11 | Diagnostic Imaging Report ---
PROCEDURE: CT abdomen and pelvis with contrast. TECHNIQUE: Multiple contiguous axial images were obtained through the abdomen and pelvis after administration of intravenous contrast. DATE: January 07, 2018. COMPARISON: CT abdomen and pelvis December 13, 2017. INDICATION: 32-year-old female, abdominal pain. FINDINGS: The visualized portions of the lung bases are clear. The heart is not enlarged. There is no pericardial effusion. The liver is normal in size and contour. There is no identified liver lesion. The main, right, and left portal veins are patent. There is a small gallstone on axial image 28. There is no evidence of acute cholecystitis. There is no intrahepatic or extrahepatic bile duct dilation. The main pancreatic duct is not abnormally dilated. The pancreatic parenchyma is unremarkable. The spleen is normal in size. The adrenal glands are unremarkable. Unremarkable appearance of the renal parenchyma. The urinary collecting systems are not distended. There is no identified renal or ureteral stone. The urinary bladder is unremarkable. There is a low-attenuation right adnexal lesion on axial image 64 measuring 1.9 cm in size likely relating to ovarian cyst. The intestinal tract is not distended. The appendix is best seen on axial image 53 and adjacent sequential images. There is no evidence of acute appendicitis. There is no free intraperitoneal air. There is no drainable fluid collection. There is no free pelvic fluid. There is no identified abnormally enlarged lymph node within the abdomen or pelvis, which meets CT size criteria for adenopathy. There is lack of normal concavity of the bilateral femoral head-neck junctions. There are erosions adjacent to both sacroiliac joints. The bones appear questionably diffusely sclerotic. The hip joint spaces appear well preserved. IMPRESSION: CT ABDOMEN AND PELVIS. 1. No identified acute abnormality within the abdomen or pelvis. 2. 1.9 cm probable right ovarian cyst. 3. Cholelithiasis without evidence of acute cholecystitis. 4. Bilateral sacroiliac joint erosions. The bones are questionably diffusely sclerotic. Differential diagnostic considerations for the sacroiliac joint erosions would include seronegative spondyloarthropathies. Other processes such as hyperparathyroidism would be included in the differential diagnosis. The kidneys are unremarkable in appearance. Correlation with laboratory values and further workup as needed is recommended. Dictated by: Dictated on workstation # [id number]
--- NOTE | 2018-01-07 14:32 | Diagnostic Imaging Report ---
EXAMINATION: PA and lateral Chest at 2:37 p.m. INDICATION: Left-sided chest pain. COMPARISON: There are no prior studies available for comparison. FINDINGS: The heart size is within normal limits. The lungs are clear. There is no evidence for failure, pneumonia, or for a pleural effusion to suggest an acute abnormality. The mediastinum is not widened. The osseous structures are intact. There is excretion of the contrast used for the CT abdomen/pelvis exam performed earlier today by both kidneys. IMPRESSION: There is no evidence for an acute cardiopulmonary abnormality. Dictated by: Dictated on workstation # [id number]
[2018-01-07] MEDS ORDERED: OMEP40CA36 PO (15:06)
[2018-01-07] MEDS ORDERED: SUCR1TAB36 PO (15:06)
[2018-01-07] MEDS ORDERED: ACETAMINOPHEN 500 MG TAB (TYLENOL) PO ONE (15:15)
[2018-01-07] MEDS ORDERED: NS 250 ML (IVPB) BAG IV ONE (15:15)
[2018-01-07] MEDS ORDERED: IOHEXOL 350 MG/ML 100 ML (OMNIPAQUE 350) VIAL IV ONE (15:15)
[2018-01-07 15:23] VITALS: BP 118/75
== END 2018-01-07 15:23 | disposition home or self-care (01) ==
LOC: EDUNIT# 11:34 → ER 11:35
DX: R10.84 Generalized abdominal pain (principal); D64.9 Anemia, unspecified; J45.909 Unspecified asthma, uncomplicated; F17.210 Nicotine dependence, cigarettes, uncomplicated; Z98.51 Tubal ligation status; Z87.59 Personal history of other complications of pregnancy, childbirth and the puerperium; Z86.19 Personal history of other infectious and parasitic diseases; Z87.19 Personal history of other diseases of the digestive system
CPT/HCPCS: 36415; 71046; 74177; 80053; 80320; 81000; 83690; 83735; 84484; 84703; 85025; 93005; 96361; 96374; 96375

== ENCOUNTER 2018-04-28 13:41 | Emergency (ER) | payer MEDICAID ==
[~2018-04-28] VITALS: Ht 144.8 cm; Wt 83.9 kg
[~2018-04-28 13:41] MED LIST changes: +OMEP40CA36 PO; +SUCR1TAB36 PO
--- OUTSIDE RECORDS SUMMARY | 2018-04-28 13:47 | XMS REPORT ---
Author Author ZAID LANGE [facility] Address [address] [place] [address] Care Team Providers Care Senior Environmental Practice Leader Name Role Phone ZAID LANGE Unavailable PROBLEMS Type Condition ICD9-CM Code [id number] Code Onset Dates Condition Status SNOMED Code Problem Ventral hernia without obstruction or gangrene K43.9 Active 212972415 Problem History of ovarian cyst Z87.42 Active 841199489 Problem History of gallstones Z87.19 Active 763129198 ALLERGIES No Information ENCOUNTERS Encounter Location Date Diagnosis [facility] [address] [address] Apr, [facility] [id number] [place] [address] Mar, [facility] [id number] [place] [address] Mar, BMI 40.0-44.9, adult Z68.41 ; Well woman exam with routine gynecological exam Z01.419 ; Screening for STD (sexually transmitted disease) Z11.3 and Nausea R11.0 [facility] [id number] [place] [phone] Mar, BMI 40.0-44.9, adult Z68.41 ; Stomach pain R10.9 and Viral gastroenteritis A08.4 [facility] [id number] [place] [phone] Jan, [facility] [address] [address] Dec, [facility] [id number] [place] [phone] Dec, [facility] [address] [facility] [id number] [place] [address] Dec, Epigastric pain R10.13 ; Acute pain of right knee M25.561 ; Right wrist pain M25.531 ; Encounter to establish care Z76.89 and BMI 40.0-44.9 , adult Z68.41 [facility] [address] 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
--- OUTSIDE RECORDS SUMMARY | 2018-04-28 13:48 | XMS REPORT ---
Author Author ZAID LANGE Organization [facility] Address [address] [place] [address] Care Team Providers Care Slat Basket Top Maker Name Role Phone ZAID LANGE Unavailable PROBLEMS Type Condition ICD9-CM Code LVI82-MP Code Onset Dates Condition Status SNOMED Code Problem Ventral hernia without obstruction or gangrene K43.9 Active 204471762 Problem History of ovarian cyst Z87.42 Active 654091921 Problem History of gallstones Z87.19 Active [id number] ALLERGIES No Information ENCOUNTERS Encounter Location Date Diagnosis [facility] [address] [address] Mar, [facility] [address] [address] Mar, BMI 40.0-44.9, adult Z68.41 ; Stomach pain R10.9 and Viral gastroenteritis A08.4 [facility] [id number] [place] [phone] Jan, [facility] [id number] [place] [address] Dec, [facility] [address] [address] Dec, [facility] [id number] [place] [address] Dec, Epigastric pain R10.13 ; Acute pain of right knee M25.561 ; Right wrist pain M25.531 ; Encounter to establish care Z76.89 and BMI 40.0-44.9 , adult Z68.41 [facility] [address] [address] November, BMI 40.0-44.9, adult Z68.41 IMMUNIZATIONS No Known Immunizations SOCIAL HISTORY Never Assessed REASON FOR VISIT Severe Chest Pain PLAN OF CARE VITAL SIGNS MEDICATIONS Unknown Medications RESULTS No Results PROCEDURES No Known procedures INSTRUCTIONS MEDICATIONS ADMINISTERED No Known Medications MEDICAL (GENERAL) HISTORY Type Description Date Medical History asthma Surgical History section x 4 Surgical History umbilical hernia repair
--- OUTSIDE RECORDS SUMMARY | 2018-04-28 13:48 | XMS REPORT ---
Author Author ZAID LANGE [facility] Address [address] [place] [address] Care Team Providers Care Group Sales Coordinator Name Role Phone ZIAD LANGE Unavailable PROBLEMS ALLERGIES No Known Allergies ENCOUNTERS IMMUNIZATIONS No Known Immunizations SOCIAL HISTORY No smoking Hx information available REASON FOR VISIT PLAN OF CARE VITAL SIGNS MEDICATIONS RESULTS No Results PROCEDURES INSTRUCTIONS MEDICATIONS ADMINISTERED No Known Medications MEDICAL (GENERAL) HISTORY
--- OUTSIDE RECORDS SUMMARY | 2018-04-28 13:48 | XMS REPORT ---
Author Author ZAID LANGE Organization [facility] Address [address] [place] [address] Care Team Providers Care Personnel Worker Name Role Phone ZAID LANGE Unavailable PROBLEMS Type Condition ICD9-CM Code APW32-YP Code Onset Dates Condition Status SNOMED Code Problem Ventral hernia without obstruction or gangrene K43.9 Active 222422347 Problem History of ovarian cyst Z87.42 Active 042163346 Problem History of gallstones Z87.19 Active 897635152 ALLERGIES No Information ENCOUNTERS Encounter Location Date Diagnosis [facility]ALK IN [facility] [id number] [place] [address] Jan, [facility] [id number] [place] [phone] Dec, [facility] [id number] [place] [address] Dec, [facility] [id number] [place] [address] Dec, Epigastric pain R10.13 ; Acute pain of right knee M25.561 ; Right wrist pain M25.531 ; Encounter to establish care Z76.89 and BMI 40.0-44.9 , adult Z68.41 [facility] IN [facility] [id number] [place] [address] November, BMI 40.0-44.9, adult Z68.41 IMMUNIZATIONS No Known Immunizations SOCIAL HISTORY Never Assessed REASON FOR VISIT PT PLAN OF CARE VITAL SIGNS MEDICATIONS Unknown Medications RESULTS No Results PROCEDURES No Known procedures INSTRUCTIONS MEDICATIONS ADMINISTERED No Known Medications MEDICAL (GENERAL) HISTORY Type Description Date Surgical History section x 4 Surgical History umbilical hernia repair
--- OUTSIDE RECORDS SUMMARY | 2018-04-28 13:48 | XMS REPORT ---
Author Author ZAID LANGE Organization [facility] Address [address] [place] [address] Care Team Providers Care Vice President For Instruction Name Role Phone NAZARIO ZAID Unavailable PROBLEMS Type Condition ICD9-CM Code RDO51-SH Code Onset Dates Condition Status SNOMED Code Problem Ventral hernia without obstruction or gangrene K43.9 Active 348668446 Problem History of ovarian cyst Z87.42 Active 980614283 Problem History of gallstones Z87.19 Active 886442421 ALLERGIES No Known Allergies ENCOUNTERS Encounter Location Date Diagnosis [facility] [id number] [place] [phone] Jan, [facility] [id number] [place] [phone] Dec, [facility] [address] [address] Dec, [facility] [address] [address] Dec, Epigastric pain R10.13 ; Acute pain of right knee M25.561 ; Right wrist pain M25.531 ; Encounter to establish care Z76.89 and BMI 40.0-44.9 , adult Z68.41 [facility] IN [facility] [id number] [place] [phone] November, BMI 40.0-44.9, adult Z68.41 IMMUNIZATIONS No Known Immunizations SOCIAL HISTORY Never Assessed REASON FOR VISIT Pt does not have access to the medication she was prescribed for an H. Pylori infection in 2017 - she is experiencing stomach pain and paroxysmal cramping. Pt fell and felt her knee pop, she has been experiencing pain ever since (1-2 weeks) - self-treatment with 800mg Ibuprofen last taken 4 days ago when she ran out of her script. Oligomenorrhea, L[facility] PL[facility] OF CARE Activity Details Follow Up 3 months or as indicated by lab Reason: VITAL SIGNS Height 61 in 2017-12-05 Weight 217.9 lbs 2017-12-05 Temperature 98.7 degrees Fahrenheit 2017-12-05 Heart Rate 98 bpm 2017-12-05 Respiratory Rate 26 2017-12-05 BMI 41.17 kg/m2 2017-12-05 Blood pressure systolic 126 mmHg 2017-12-05 Blood pressure diastolic 80 mmHg 2017-12-05 MEDICATIONS Medication Instructions Dosage Frequency Start Date End Date Duration Status Naproxen 500 mg Orally every 12 hrs 1 tablet with food or milk as needed 12h Dec, 2 Mar, 2018 30 days Active RESULTS No Results PROCEDURES Procedure Date Ordered Result Body Site COMPLETE CBC W/AUTO DIFF WBC December 05, 2017 COMPREHEN METABOLIC PANEL December 05, 2017 LIPID PANEL December 05, 2017 ASSAY THYROID STIM HORMONE December 05, 2017 X-RAY EXAM OF WRIST December 05, 2017 X-RAY EXAM OF KNEE, 3 December 05, 2017 INSTRUCTIONS MEDICATIONS ADMINISTERED No Known Medications MEDICAL (GENERAL) HISTORY Type Description Date Surgical History section x 4 Surgical History umbilical hernia repair
--- OUTSIDE RECORDS SUMMARY | 2018-04-28 13:48 | XMS REPORT ---
Author Author ZAID LANGE Organization [facility] Address [address] [place] [address] Care Team Providers Care Polarity Tester Name Role Phone ZAID LANGE Unavailable PROBLEMS Type Condition ICD9-CM Code SWV37-CZ Code Onset Dates Condition Status SNOMED Code Problem Ventral hernia without obstruction or gangrene K43.9 Active 948167407 Problem History of ovarian cyst Z87.42 Active 323734552 Problem History of gallstones Z87.19 Active 644396225 ALLERGIES No Information ENCOUNTERS Encounter Location Date Diagnosis [facility] [address] [address] Mar, [facility] [id number] [place] [address] Mar, BMI 40.0-44.9, adult Z68.41 ; Well woman exam with routine gynecological exam Z01.419 ; Screening for STD (sexually transmitted disease) Z11.3 and Nausea R11.0 [facility] [id number] [place] [address] Mar, BMI 40.0-44.9, adult Z68.41 ; Stomach pain R10.9 and Viral gastroenteritis A08.4 [facility] [id number] [place] [address] Jan, [facility] [address] [address] Dec, [facility] [id number] [place] [address] Dec, [facility] [id number] [place] [phone] 04 Terrance, 2018 Epigastric pain R10.13 ; Acute pain of right knee M25.561 ; Right wrist pain M25.531 ; Encounter to establish care Z76.89 and BMI 40.0-44.9 , adult Z68.41 [facility] [address] [facility] [place] [place] [id number] [address] November, BMI 40.0-44.9, adult Z68.41 IMMUNIZATIONS No Known Immunizations SOCIAL HISTORY Never Assessed REASON FOR VISIT med order PLAN OF CARE VITAL SIGNS MEDICATIONS Medication Instructions Dosage Frequency Start Date End Date Duration Status Diflucan 150 MG Orally one dose 1 tablet Mar, Active RESULTS No Results PROCEDURES No Known procedures INSTRUCTIONS MEDICATIONS ADMINISTERED No Known Medications MEDICAL (GENERAL) HISTORY Type Description Date Medical History asthma Surgical History section x 4 Surgical History umbilical hernia repair Hospitalization History past surgeries
--- OUTSIDE RECORDS SUMMARY | 2018-04-28 13:48 | XMS REPORT ---
Author Author ZAID LANGE Organization [facility] Address [address] [place] [address] Care Team Providers Care Apparel Embroidery Digitizer Name Role Phone NAZARIO ZAID Unavailable PROBLEMS Type Condition ICD9-CM Code FDI57-SX Code Onset Dates Condition Status SNOMED Code Problem Ventral hernia without obstruction or gangrene K43.9 Active 480324386 Problem History of ovarian cyst Z87.42 Active 029128415 Problem History of gallstones Z87.19 Active 991139999 ALLERGIES No Information ENCOUNTERS Encounter Location Date Diagnosis [facility] [id number] [place] [address] Jan, [facility] [id number] [place] [address] Dec, [facility] [address] [address] Dec, [facility] [address] [address] Dec, Epigastric pain R10.13 ; Acute pain of right knee M25.561 ; Right wrist pain M25.531 ; Encounter to establish care Z76.89 and BMI 40.0-44.9 , adult Z68.41 [facility] [id number] [place] [address] November, BMI 40.0-44.9, adult Z68.41 IMMUNIZATIONS No Known Immunizations SOCIAL HISTORY Never Assessed REASON FOR VISIT med order PLAN OF CARE VITAL SIGNS MEDICATIONS Medication Instructions Dosage Frequency Start Date End Date Duration Status Iron 325 (65 Fe) MG Orally 3 times a day 1 tablet 8h Dec, 30 day(s) Active RESULTS No Results PROCEDURES No Known procedures INSTRUCTIONS MEDICATIONS ADMINISTERED No Known Medications MEDICAL (GENERAL) HISTORY Type Description Date Surgical History section x 4 Surgical History umbilical hernia repair
--- OUTSIDE RECORDS SUMMARY | 2018-04-28 13:48 | XMS REPORT ---
Author Author OSWALD AMES [facility] Address [address] [place] [address] Care Team Providers Care Arc Welder Name Role Phone KWAKU OSWALD Unavailable PROBLEMS Type Condition ICD9-CM Code EIC29-RL Code Onset Dates Condition Status SNOMED Code Problem Ventral hernia without obstruction or gangrene K43.9 Active 633991073 Problem History of ovarian cyst Z87.42 Active 841821480 Problem History of gallstones Z87.19 Active 980848549 ALLERGIES No Information ENCOUNTERS Encounter Location Date Diagnosis [facility] WALK IN [facility] [id number] [place] [phone] Jan, [facility] [address] [address] Dec, [facility] [address] [address] Dec, [place] [address] [address] Dec, Epigastric pain R10.13 ; Acute pain of right knee M25.561 ; Right wrist pain M25.531 ; Encounter to establish care Z76.89 and BMI 40.0-44.9 , adult Z68.41 [facility] WALK IN [facility] [id number] [place] [address] November, BMI 40.0-44.9, adult Z68.41 IMMUNIZATIONS No Known Immunizations SOCIAL HISTORY Never Assessed REASON FOR VISIT pt complaining of right knee pain since she fell last noc. [email or web address], ambulated into [facility] without difficulty. instructed pt to apply ice et elevate leg. will get appt with PCP of choice. pt verbalized understanding. PLAN OF CARE VITAL SIGNS Height 61 in 2017-11-22 Weight 214.0 lbs 2017-11-22 Temperature 98.0 degrees Fahrenheit 2017-11-22 Heart Rate 88 bpm 2017-11-22 Respiratory Rate 20 2017-11-22 BMI 40.43 kg/m2 2017-11-22 Blood pressure systolic 130 mmHg 2017-11-22 Blood pressure diastolic 76 mmHg 2017-11-22 MEDICATIONS Unknown Medications RESULTS No Results PROCEDURES No Known procedures INSTRUCTIONS MEDICATIONS ADMINISTERED No Known Medications MEDICAL (GENERAL) HISTORY Type Description Date Surgical History section x 4 Surgical History umbilical hernia repair
[2018-04-28 15:37] LABS: BASOPHILS % (AUTO) 0 % (0-10); EOSINOPHILS # (AUTO) 0.2 10^3/uL (0.0-0.3); EOSINOPHILS % (AUTO) 2 % (0-10); HEMATOCRIT 29 % (35-52); HEMOGLOBIN 9.1 G/DL (11.5-16.0); LYMPHOCYTES # (AUTO) 2.6 X 10^3 (1.0-4.0); LYMPHOCYTES % (AUTO) 32 % (12-44); MEAN CORPUSCULAR HEMOGLOBIN 20 PG (25-34); MEAN CORPUSCULAR HGB CONC 31 G/DL (32-36); MEAN CORPUSCULAR VOLUME 66 FL (80-99); MEAN PLATELET VOLUME 11.3 FL (7.4-10.4); MONOCYTES # (AUTO) 0.8 X 10^3 (0.0-1.0); MONOCYTES % (AUTO) 10 % (0-12); NEUTROPHILS # (AUTO) 4.5 X 10^3 (1.8-7.8); NEUTROPHILS % (AUTO) 56 % (42-75); PLATELET COUNT 436 10^3/uL (130-400); RED BLOOD COUNT 4.46 10^6/uL (4.35-5.85); RED CELL DISTRIBUTION WIDTH 18.7 % (10.0-14.5)
[2018-04-28 15:48] LABS: INR 1.1 (0.8-1.4)
--- NOTE | 2018-04-28 15:56 | ED General ---
General Chief Complaint: Cough/Cold/Flu Symptoms Stated Complaint: EAR PAIN;CHEST CONGESTION;COUGH Nursing Triage Note: Pt ambulated to rm 10. Pt c/o R ear pain, cough, chest pain, abdominal X 1 week. Pt describes chest pain as stabbing and burning. Pt c/o green sputum. Nursing Sepsis Screen: No Definite Risk Source of Information: Patient Exam Limitations: No Limitations History of Present Illness Date Seen by Provider: Apr 28, 2018 Time Seen by Provider: 15:05 Initial Comments Patient is 33-year-old female who presents to the emergency room with complaints of right ear pain, cough, chest pain for one week. She reports stabbing chest pain, pain with inspiration, coughing up yellow/brown/green colored sputum. Denies shortness of breath, nausea, dizzy, light headedness. Timing/Duration: 1 Week Associated Systoms: Chest Pain, Cough; No Fever/Chills, No Nausea/Vomiting, No Shortness of Air Allergies and Home Medications Allergies Coded Allergies: No Known Drug Allergies (Unverified , 09/23/17) Home Medications Amoxicillin 500 Mg Tablet, 1,000 MG PO BID Prescribed by: JOSÉ MIGUEL SIERRA on 12/13/171757 Amoxicillin 500 Mg Capsule, 500 MG PO BID Prescribed by: BRITTA PRAKASH on 04/28/18 1625 Clarithromycin 500 Mg Tablet, 500 MG PO BID Prescribed by: JOSÉ MIGUEL SIERRA on 12/13/17 175 Diclofenac Sodium 75 Mg Tablet., 75 MG PO BID PRN for pain Prescribed by: DAX ROLAND on 11/22/17 191 Omeprazole 20 Mg Capsule., 20 MG PO BID Prescribed by: JOSÉ MIGUEL SIERRA on 12/13/17 175 Omeprazole 40 Mg Capsule., 40 MG PO DAILY Prescribed by: WESLEY WARE on 01/07/18 1506 Ondansetron 4 Mg Tab.rapdis, 4 MG SL Q4H PRN for NAUSEA/VOMITING-1ST LINE Prescribed by: JOSÉ MIGUEL SIERRA on 09/24/17 0130 Sucralfate 1 Gm Tablet, 1 GM PO QIDACHS Prescribed by: WESLEY WARE on 01/07/18 1506 Patient Home Medication List Home Medication List Reviewed: Yes Review of Systems Review of Systems Constitutional: see HPI; No chills, No dizziness, No fever EENTM: see HPI, ear pain (right ear pain) Respiratory: see HPI, cough, phlegm Cardiovascular: see HPI, chest pain; No palpitations, No syncope All Other Systems Reviewed Negative Unless Noted: Yes Past Nsejzgg-Lleyyz-Hovilx Hx Past Med/Social Hx: Reviewed Nursing Past Med/Soc Hx Patient Social History Alcohol Use: Denies Use Recreational Drug Use: No Type Used: Cigarettes Recent Foreign Travel: No Contact w/Someone Who Travel: No Recent Infectious Disease Expo: No Recent Hopitalizations: No Seasonal Allergies Seasonal Allergies: No Past Medical History Surgeries: Yes (HERNIA) Abdominal, Section, Tubal Ligation Respiratory: Yes Asthma Cardiac: No Neurological: No PRECIPITATE WASHER History: Tubal Ligation Genitourinary: No Gastrointestinal: Yes (H. pylori) Ulcer Musculoskeletal: No Endocrine: No HEENT: No Cancer: No Psychosocial: No Integumentary: No Blood Disorders: No Family Medical History Reviewed Nursing Family Hx Physical Exam Vital Signs Vital Signs - First Documented 04/28/18 14:44 Temp 98.2 Pulse 80 Resp 16 B/P (MAP) 132/78 (96) Pulse Ox 100 O2 Delivery Room Air Capillary Refill : Less Than 3 Seconds Height, Weight, BMI Height: 4'9.00" Weight: 185lbs. oz. 83.642864io; BMI Method:Stated General Appearance: No Apparent Distress, WD/WN Eyes: Bilateral Eye Normal Inspection, Bilateral Eye PERRL, Bilateral Eye EOMI HEENT: PERRL/EOMI, Pharynx Normal, TM Abnormal (R) (bulging TM.) Respiratory: Chest Non Tender, Lungs Clear, Normal Breath Sounds, No Accessory Muscle Use, No Respiratory Distress Cardiovascular: Regular Rate, Rhythm, No Edema, No Gallop, No JVD, No Murmur, Normal Peripheral Pulses, Other (chest pain is reproducible with palpation on exam.) Neurologic/Psychiatric: Alert, Oriented x3, Normal Mood/Affect Skin: Normal Color, Warm/Dry Progress/Results/Core Measures Suspected Sepsis Recent Fever Within 48 Hours: No Infection Criteria Present: None New/Unexplained Altered Menta: No Sepsis Screen: No Definite Risk SIRS Temperature:98.2 Pulse: 80 Respiratory Rate: 16 Laboratory Tests 04/28/18 15:27: White Blood Count 8.0 Blood Pressure 132 /78 Mean: 96 Laboratory Tests 04/28/18 15:27: Creatinine 0.65, INR Comment 1.1, Platelet Count 436H, Total Bilirubin 0.2 Results/Orders Lab Results My Orders Vital Signs/I&O Capillary Refill : Less Than 3 Seconds Blood Pressure Mean: 96 Progress Note : Time: 16:14 Progress Note I have seen and evaluated the patient. I have informed her of normal imaging and laboratory studies. I believe that if her chest pain was cardiac related she would have an elevated troponin or EKG changes due to the length of chest pain time. She aggress with plans of care, plans for discharge, return precautions were given. ECG EKG : EKG Time: 15:30 Rate: 63 Rhythm: Normal Sinus Intervals: Normal ECG Comparisson: No Previous ECG Available ECG Impression: Normal Diagnostic Imaging Diagonstic Imaging: Xray Plain Films/CT/US/NM/MRI: chest Comments NAME: ABDOUL SINGHS [facility] REC#: [id number] PHYSICIAN: BRITTA PRAKASH CC: BRITTA PRAKASH; DANIEL BARRIGA MD Page 1 of 1 RADIOLOGY REPORT [facility] [place], [place] CC: TYE PRAKASH STEPHEN D MD Page 1 of 1 RADIOLOGY REPORT NAME: FRANCISCOTARUN [facility] REC#: [id number] PT STATUS: REG ER : 1985 PHYSICIAN: BRITTA PRAKASH ADMIT DATE: 04/28/18/ER Signed Date of Exam: 04/28/18 CHEST 1 VIEW, AP/PA ONLY INDICATION: Chest pain and cough. TIME OF EXAM: 3:45 p.m. COMPARISON: Prior study from 01/07/2018. FINDINGS: The heart size is normal. The pulmonary vascularity is unremarkable. The lungs are clear. No infiltrate, effusion or pneumothorax is detected. IMPRESSION: No acute cardiopulmonary process is detected. Dictated by: Dictated on workstation # [id number] Dict: 04/28/18 1550 Trans: 04/28/18 155 Interpreted by: DANIEL BARRIGA MD Electronically signed by: DANIEL BARRIGA MD 04/28/18 1557 Reviewed: Reviewed by Me Departure Impression Primary Impression: Otitis media Additional Impression: Upper respiratory infection Disposition: 01 HOME, SELF-CARE Condition: Stable/Unchanged Departure-Patient Inst. Decision time for Depature: 16:14 Referrals: NO,LOCAL PHYSICIAN (PCP/Family) Primary Care Physician Patient Instructions: Ear Infections (Otitis Media), Cough, Runny Nose, and the Common Cold (DC) Add. Discharge Instructions: Take medication as directed. Follow-up with her primary care provider within 1 week for recheck. Return back to the emergency room for any worsening symptoms or concerns as needed. He may use Tylenol and ibuprofen as directed by the bottle for pain. All discharge instructions reviewed with patient and/or family. Voiced understanding. Scripts Amoxicillin (Amoxicillin) 500 Mg Capsule 500 MG PO BID for 10 Days, #20 CAP Prov: BRITTA PRAKASH 04/28/18 BRITTA PRAKASH Apr 28, 2018 15:56
[2018-04-28 15:57] LABS: ALANINE AMINOTRANSFERASE 10 U/L (0-55); ALBUMIN 4.1 GM/DL (3.2-4.5); ALKALINE PHOSPHATASE 63 U/L (40-136); BILIRUBIN,TOTAL 0.2 MG/DL (0.1-1.0); BUN/CREATININE RATIO 15; CALCIUM 8.6 MG/DL (8.5-10.1); CARBON DIOXIDE 21 MMOL/L (21-32); CHLORIDE 108 MMOL/L (98-107); CREATININE SERUM 0.65 MG/DL (0.60-1.30); GFR ESTIMATED > 60; GLUCOSE 82 MG/DL (70-105); MAGNESIUM 1.9 MG/DL (1.8-2.4); POTASSIUM 3.2 MMOL/L (3.6-5.0); SODIUM 141 MMOL/L (135-145)
[2018-04-28 16:04] LABS: MYOGLOBIN SERUM 19.3 NG/ML (10.0-92.0)
[2018-04-28] MEDS ORDERED: AMOX500C2 PO (16:25)
[2018-04-28 16:35] VITALS: BP 97/84
== END 2018-04-28 16:40 | disposition home or self-care (01) ==
LOC: EDUNIT# 13:41 → ER 13:41
DX: H66.91 Otitis media, unspecified, right ear (principal); J06.9 Acute upper respiratory infection, unspecified; J45.909 Unspecified asthma, uncomplicated; Z86.19 Personal history of other infectious and parasitic diseases; Z87.19 Personal history of other diseases of the digestive system; Z98.890 Other specified postprocedural states; Z98.51 Tubal ligation status
CPT/HCPCS: 36415; 71045; 80053; 83735; 83874; 84484; 85025; 85610; 85730; 93005; 93041

== ENCOUNTER 2018-07-20 15:48 | Emergency (ER) | payer MEDICAID ==
[~2018-07-20] VITALS: Ht 144.8 cm; Wt 83.9 kg
[~2018-07-20 15:48] MED LIST changes: +AMOX500C2 PO
--- OUTSIDE RECORDS SUMMARY | 2018-07-20 15:53 | XMS REPORT ---
Author Author ZAID LANGE Organization [facility] Address [address] [place] [address] Care Team Providers Care Pecan Mallow Dipper Name Role Phone NAZARIO ZAID Unavailable PROBLEMS Type Condition ICD9-CM Code SYI24-YW Code Onset Dates Condition Status SNOMED Code Problem Reflux gastritis K29.60 Active 55728075 Problem Acute right-sided low back pain with right-sided sciatica M54.41 Active 149657960 Problem History of gallstones Z87.19 Active 774951719 Problem Ventral hernia without obstruction or gangrene K43.9 Active 071218410 Problem History of ovarian cyst Z87.42 Active 734417356 ALLERGIES No Information ENCOUNTERS Encounter Location Date Diagnosis [facility] [address] [address] Jun, [facility] [address] [address] 30 May, 2018 Reflux gastritis K29.60 and Epigastric pain R10.13 [facility] [id number] [place] [address] May[facility] [address] [phone] May, [facility] [address] [address] 27 May, 2018 Acute pain of right shoulder M25.511 [facility] [address] [address] May, [facility] [address] [address] 18 May, 2018 BMI 40.0-44.9, adult Z68.41 and Acute right-sided low back pain with right-sided sciatica M54.41 [facility] [id number] [place] [address] Apr, [facility] [id number] [place] [address] Mar, [facility] [id number] [place] [address] Mar, BMI 40.0-44.9, adult Z68.41 ; Well woman exam with routine gynecological exam Z01.419 ; Screening for STD (sexually transmitted disease) Z11.3 and Nausea R11.0 [facility]ALK IN [facility] [id number] [place] [phone] 10 Mar, 2018 BMI 40.0-44.9, adult Z68.41 ; Stomach pain R10.9 and Viral gastroenteritis A08.4 [facility]ALK IN [facility] [id number] [place] [address] Jan, [facility] [id number] [place] [address] Dec, [place] [address] [address] Dec, [facility] [id number] [place] [address] Dec, Epigastric pain R10.13 ; Acute pain of right knee M25.561 ; Right wrist pain M25.531 ; Encounter to establish care Z76.89 and BMI 40.0-44.9 , adult Z68.41 [facility] IN [facility] [id number] [place] [address] November, BMI 40.0-44.9, adult Z68.41 IMMUNIZATIONS No Known Immunizations SOCIAL HISTORY Never Assessed REASON FOR VISIT Burning sensation foot PLAN OF CARE VITAL SIGNS MEDICATIONS Unknown Medications RESULTS No Results PROCEDURES No Known procedures INSTRUCTIONS MEDICATIONS ADMINISTERED No Known Medications MEDICAL (GENERAL) HISTORY Type Description Date Medical History asthma Surgical History section x 4 Surgical History umbilical hernia repair Hospitalization History past surgeries
--- OUTSIDE RECORDS SUMMARY | 2018-07-20 15:53 | XMS REPORT ---
Author Author JEN KRAMER [facility] Address [address] [place] [address] Care Team Providers Care Opinion Polls Survey Worker Name Role Phone JEN KRAMER Unavailable PROBLEMS Type Condition ICD9-CM Code ZSR83-NM Code Onset Dates Condition Status SNOMED Code Problem Reflux gastritis K29.60 Active 07525024 Problem Acute right-sided low back pain with right-sided sciatica M54.41 Active 198647514 Problem History of gallstones Z87.19 Active 059479416 Problem Ventral hernia without obstruction or gangrene K43.9 Active 779821244 Problem History of ovarian cyst Z87.42 Active 010947884 ALLERGIES No Known Allergies ENCOUNTERS Encounter Location Date Diagnosis [facility] [address] [address] 30 May, 2018 Reflux gastritis K29.60 and Epigastric pain R10.13 [facility] [address] [address] May, [facility] [address] [address] May, [facility] [address] [address] May, Acute pain of right shoulder M25.511 [facility] [address] [address] May, [facility] [address] [address] 18 May, 2018 BMI 40.0-44.9, adult Z68.41 and Acute right-sided low back pain with right-sided sciatica M54.41 [facility] [address] [address] Apr, [place] [id number] [place] [address] Mar, [place] [id number] [place] [address]66[address] 6263 Mar, BMI 40.0-44.9, adult Z68.41 ; Well woman exam with routine gynecological exam Z01.419 ; Screening for STD (sexually transmitted disease) Z11.3 and Nausea R11.0 [facility] WALK IN [facility] [id number] [place] [address] Mar, BMI 40.0-44.9, adult Z68.41 ; Stomach pain R10.9 and Viral gastroenteritis A08.4 [facility] WALK [facility] [place] [id number] [place] [address] Jan, [place] [id number] [place] [address] Dec, [place] [id number] [place] [address] Dec, [place] [id number] [place] [address]88- 4967 Dec, Epigastric pain R10.13 ; Acute pain of right knee M25.561 ; Right wrist pain M25.531 ; Encounter to establish care Z76.89 and BMI 40.0-44.9 , adult Z68.41 [facility] WALK IN [facility] [id number] [place] [address] November, BMI 40.0-44.9, adult Z68.41 IMMUNIZATIONS No Known Immunizations SOCIAL HISTORY Never Assessed REASON FOR VISIT right shoulder pain that started two days ago that is gradually getting worse/ NKI.--JUDI Jaramillo PLAN OF CARE Activity Details Follow Up prn Reason: VITAL SIGNS Height 61 in 2018-05-30 Weight 207 lbs 2018-05-30 Temperature 98.0 degrees Fahrenheit 2018-05-30 Heart Rate 80 bpm 2018-05-30 Respiratory Rate 20 2018-05-30 BMI 39.11 kg/m2 2018-05-30 Blood pressure systolic 112 mmHg 2018-05-30 Blood pressure diastolic 66 mmHg 2018-05-30 MEDICATIONS Medication Instructions Dosage Frequency Start Date End Date Duration Status PredniSONE 20 mg Orally Once a day 1 tablet 24h May, 5 days Active Naproxen 500 mg Orally every 12 hrs 1 tablet with food or milk as needed 12h May, 10 days Active RESULTS No Results PROCEDURES No Known procedures INSTRUCTIONS MEDICATIONS ADMINISTERED No Known Medications MEDICAL (GENERAL) HISTORY Type Description Date Medical History asthma Surgical History section x 4 Surgical History umbilical hernia repair Hospitalization History past surgeries
--- OUTSIDE RECORDS SUMMARY | 2018-07-20 15:53 | XMS REPORT ---
Author Author ZAID LANGE [facility] Address [address] [place] [address] Care Team Providers Care Case Filler Name Role Phone KING ZAID Unavailable PROBLEMS Type Condition ICD9-CM Code SQA89-BV Code Onset Dates Condition Status SNOMED Code Problem Acute right-sided low back pain with right-sided sciatica M54.41 Active 579298895 Problem Ventral hernia without obstruction or gangrene K43.9 Active 562309761 Problem History of ovarian cyst Z87.42 Active 235179994 Problem History of gallstones Z87.19 Active 043635461 ALLERGIES No Information ENCOUNTERS Encounter Location Date Diagnosis [facility] [id number] [place] [address] May, [facility] [id number] [place] [address] May, [facility] [id number] [place] [address]57 May, Acute pain of right shoulder M25.511 [facility] [id number] [place] [address] May, [facility] [address] [address] 18 May, 2018 BMI 40.0-44.9, adult Z68.41 and Acute right-sided low back pain with right-sided sciatica M54.41 [facility] [id number] [place] [address]59[address] Apr, [facility] [id number] [place] [address] 24 Mar, 2018 [facility] [address] [address] 21 Mar, 2018 BMI 40.0-44.9, adult Z68.41 ; Well woman exam with routine gynecological exam Z01.419 ; Screening for STD (sexually transmitted disease) Z11.3 and Nausea R11.0 [facility] WALK IN [facility] [id number] [place] [address]89 [address] 10 Mar, 2018 BMI 40.0-44.9, adult Z68.41 ; Stomach pain R10.9 and Viral gastroenteritis A08.4 [facility]ALK IN [facility] [id number] [place] [address] Jan, [place] [id number] [place] [address]43[address] 1692 Dec, [place] [address] [address] Dec, [place] [address] [address] Dec, Epigastric pain R10.13 ; Acute pain of right knee M25.561 ; Right wrist pain M25.531 ; Encounter to establish care Z76.89 and BMI 40.0-44.9 , adult Z68.41 [facility] [place] [address] [place] [address] November, BMI 40.0-44.9, adult Z68.41 IMMUNIZATIONS No Known Immunizations SOCIAL HISTORY Never Assessed REASON FOR VISIT Pain In Chest PLAN OF CARE VITAL SIGNS MEDICATIONS Unknown Medications RESULTS No Results PROCEDURES No Known procedures INSTRUCTIONS MEDICATIONS ADMINISTERED No Known Medications MEDICAL (GENERAL) HISTORY Type Description Date Medical History asthma Surgical History section x 4 Surgical History umbilical hernia repair Hospitalization History past surgeries
--- OUTSIDE RECORDS SUMMARY | 2018-07-20 15:53 | XMS REPORT ---
Author Author ZAID LANEG Organization [facility] Address [address] [place] [address] Care Team Providers Care Salt Plant Operator Name Role Phone NAZARIO ZAID Unavailable PROBLEMS Type Condition ICD9-CM Code ROK22-LD Code Onset Dates Condition Status SNOMED Code Problem Acute right-sided low back pain with right-sided sciatica M54.41 Active 135420440 Problem Ventral hernia without obstruction or gangrene K43.9 Active 768712149 Problem History of ovarian cyst Z87.42 Active 378931139 Problem History of gallstones Z87.19 Active 286654012 ALLERGIES No Information ENCOUNTERS Encounter Location Date Diagnosis [facility] [id number] [place] [address] May, [facility] WALK IN [facility] [id number] [place] [address] 18 May, 2018 BMI 40.0-44.9, adult Z68.41 and Acute right-sided low back pain with right-sided sciatica M54.41 [facility] [id number] [place] [address] Apr, [facility] [id number] [place] [address]6078- [address]228 Mar, [facility] [id number] [place] [address] 09756- 0408 Mar, BMI 40.0-44.9, adult Z68.41 ; Well woman exam with routine gynecological exam Z01.419 ; Screening for STD (sexually transmitted disease) Z11.3 and Nausea R11.0 [facility]ALK IN [facility] [id number] [place] [address]32 -[address]09 Mar, BMI 40.0-44.9, adult Z68.41 ; Stomach pain R10.9 and Viral gastroenteritis A08.4 [facility] IN [facility] [address] [address] Jan, [facility] [address] [place] [address]046 Dec, [facility] [id number] [place] [address]14[address]81 Dec, [facility] [id number] [place] [address] 03131- 9457 Dec, Epigastric pain R10.13 ; Acute pain of right knee M25.561 ; Right wrist pain M25.531 ; Encounter to establish care Z76.89 and BMI 40.0-44.9 , adult Z68.41 [facility] IN [facility] [address] [address] November, BMI 40.0-44.9, adult Z68.41 IMMUNIZATIONS No Known Immunizations SOCIAL HISTORY Never Assessed REASON FOR VISIT Chest Hurts while laying on it PLAN OF CARE VITAL SIGNS MEDICATIONS Unknown Medications RESULTS No Results PROCEDURES No Known procedures INSTRUCTIONS MEDICATIONS ADMINISTERED No Known Medications MEDICAL (GENERAL) HISTORY Type Description Date Medical History asthma Surgical History section x 4 Surgical History umbilical hernia repair Hospitalization History past surgeries
--- OUTSIDE RECORDS SUMMARY | 2018-07-20 15:53 | XMS REPORT ---
Author Author ZAID LANGE Organization [facility] Address [address] [place] [address] Care Team Providers Care Regional Ehs Manager Name Role Phone LIZZETTE LANGETA Unavailable PROBLEMS Type Condition ICD9-CM Code YTM65-FN Code Onset Dates Condition Status SNOMED Code Problem Reflux gastritis K29.60 Active 10609575 Problem Acute right-sided low back pain with right-sided sciatica M54.41 Active 755394355 Problem History of gallstones Z87.19 Active 942542402 Problem Ventral hernia without obstruction or gangrene K43.9 Active 753060501 Problem History of ovarian cyst Z87.42 Active 195076738 ALLERGIES No Known Allergies ENCOUNTERS Encounter Location Date Diagnosis [facility] [address] [address] 30 May, 2018 Reflux gastritis K29.60 and Epigastric pain R10.13 [facility] [address] [address] May, [facility] [address] [address] May, [facility] [address] [address] May, Acute pain of right shoulder M25.[address] [facility] [address] [address] May, [facility] [address] [address] 18 May, 2018 BMI 40.0-44.9, adult Z68.41 and Acute right-sided low back pain with right-sided sciatica M54.41 [facility] [address] [place] [address] 10 Apr, 2018 [facility] [address] [address] Mar, [facility] [id number] [place] [address] Mar, BMI 40.0-44.9, adult Z68.41 ; Well woman exam with routine gynecological exam Z01.419 ; Screening for STD (sexually transmitted disease) Z11.3 and Nausea R11.0 [facility] [id number] [place] [address] 10 Mar, 2018 BMI 40.0-44.9, adult Z68.41 ; Stomach pain R10.9 and Viral gastroenteritis A08.4 [facility] [id number] [place] [address]15 -[address]697 Jan, [facility] [address] [address] Dec, [place] [address] [address] Dec, [place] [address] [address] Dec, Epigastric pain R10.13 ; Acute pain of right knee M25.561 ; Right wrist pain M25.531 ; Encounter to establish care Z76.89 and BMI 40.0-44.9 , adult Z68.41 [facility] [id number] [place] [address] November, BMI 40.0-44.9, adult Z68.41 IMMUNIZATIONS No Known Immunizations SOCIAL HISTORY Never Assessed REASON FOR VISIT Chest pain, burning sensation, when she takes a drink of something it will go away for a little bit bt then it comes back x2 months Lelia Blanton MA PLAN OF CARE Activity Details Follow Up 4 Weeks Reason:Reflux VITAL SIGNS Height 61 in 2018-06-02 Weight 206.1 lbs 2018-06-02 Temperature 97.9 degrees Fahrenheit 2018-06-02 Heart Rate 88 bpm 2018-06-02 Respiratory Rate 20 2018-06-02 BMI 38.94 kg/m2 2018-06-02 Blood pressure systolic 118 mmHg 2018-06-02 Blood pressure diastolic 72 mmHg 2018-06-02 MEDICATIONS Medication Instructions Dosage Frequency Start Date End Date Duration Status Naproxen 500 mg Orally every 12 hrs 1 tablet with food or milk as needed 12h 18 May, 2018 10 days Active Omeprazole 40 mg Orally Once a day 1 capsule 24h 30 May, 2018 30 day(s ) Active Clarithromycin 500 mg Orally every 12 hrs 1 tablet 12h May, 14 days Active Amoxicillin 500 mg Orally 2 times a day 2 capsule 12h May, 14 days Active RESULTS Name Result Date Reference Range H PYLORI (IN HOUSE) 2018-06-02 H. PYLORI negative Control + Lot # [id number] Exp date 07/2019 TEST, URINE (IN HOUSE) 2018-06-02 RESULTS negative Lot # [id number] Control + Exp date 11/2019 PROCEDURES Procedure Date Ordered Result Body Site IMMUNOASSAY,INFECTIOUS AGENT Jun 02, 2018 URINE TEST Jun 02, 2018 INSTRUCTIONS MEDICATIONS ADMINISTERED No Known Medications MEDICAL (GENERAL) HISTORY Type Description Date Medical History asthma Surgical History section x 4 Surgical History umbilical hernia repair Hospitalization History past surgeries
--- OUTSIDE RECORDS SUMMARY | 2018-07-20 15:53 | XMS REPORT ---
Author Author JEN KRAMER [facility] WALK IN [facility] Address [address] [place] [address] Care Team Providers Care Caustic Strength Inspector Name Role Phone JEN KRAMER Unavailable PROBLEMS Type Condition ICD9-CM Code BQZ70-HG Code Onset Dates Condition Status SNOMED Code Problem Acute right-sided low back pain with right-sided sciatica M54.41 Active 536677149 Problem Ventral hernia without obstruction or gangrene K43.9 Active 827793140 Problem History of ovarian cyst Z87.42 Active 575907470 Problem History of gallstones Z87.19 Active 068476202 ALLERGIES No Known Allergies ENCOUNTERS Encounter Location Date Diagnosis [facility] WALK IN [facility] [id number] [place] [address] May, [facility] IN [facility] [id number] [place] [address]2854 -[address]606 May, BMI 40.0-44.9, adult Z68.41 and Acute right-sided low back pain with right-sided sciatica M54.41 [place] [address] [place] [address]25- [address]268 Apr, [facility] [id number] [place] [address] 14031- 9687 Mar, [facility] [id number] [place] [address] 90064- 0872 Mar, BMI 40.0-44.9, adult Z68.41 ; Well woman exam with routine gynecological exam Z01.419 ; Screening for STD (sexually transmitted disease) Z11.3 and Nausea R11.0 [facility] WALK IN [facility] [id number] [place] [address]26 -5929 Mar, BMI 40.0-44.9, adult Z68.41 ; Stomach pain R10.9 and Viral gastroenteritis A08.4 [facility] [address] [address] Jan, [facility] [address] [address] Dec, [facility] [address] [place] [address] 54504[address] 4738 Dec, [facility] [address] [place] [address] 05226- 7820 Dec, Epigastric pain R10.13 ; Acute pain of right knee M25.561 ; Right wrist pain M25.531 ; Encounter to establish care Z76.89 and BMI 40.0-44.9 , adult Z68.41 [facility] WALK IN [facility] [address] [address] November, BMI 40.0-44.9, adult Z68.41 IMMUNIZATIONS Vaccine Route Administration Date Status SOLUMEDROL (UP TO 125 MG) IM Intramuscular May 21, 2018 Administered SOCIAL HISTORY Never Assessed REASON FOR VISIT back pain x3 days, radiates down right leg JStrasserRN, Given 1000mg Tylenol po now lot exp PLAN OF CARE Activity Details Follow Up prn Reason: VITAL SIGNS Height 61 in 2018-05-21 Weight 212.4 lbs 2018-05-21 Temperature 97.6 degrees Fahrenheit 2018-05-21 Heart Rate 80 bpm 2018-05-21 Respiratory Rate 20 2018-05-21 BMI 40.13 kg/m2 2018-05-21 Blood pressure systolic 140 mmHg 2018-05-21 Blood pressure diastolic 72 mmHg 2018-05-21 MEDICATIONS Medication Instructions Dosage Frequency Start Date End Date Duration Status PredniSONE 20 mg Orally Once a day 1 tablet 24h May, 5 days Active Naproxen 500 mg Orally every 12 hrs 1 tablet with food or milk as needed 12h May, 10 days Active RESULTS No Results PROCEDURES Procedure Date Ordered Result Body Site SOLUMEDROL (UP TO 125 MG) May 21, 2018 THER/PROPH/DIAG INJ, SC/IM May 21, 2018 INSTRUCTIONS MEDICATIONS ADMINISTERED No Known Medications MEDICAL (GENERAL) HISTORY Type Description Date Medical History asthma Surgical History section x 4 Surgical History umbilical hernia repair Hospitalization History past surgeries
--- OUTSIDE RECORDS SUMMARY | 2018-07-20 15:53 | XMS REPORT ---
Author Author ZAID LANGE [facility] Address [address] [place] [address] Care Team Providers Care Sales Office Administrator Name Role Phone KING ZAID Unavailable PROBLEMS Type Condition ICD9-CM Code XQP27-WR Code Onset Dates Condition Status SNOMED Code Problem Acute right-sided low back pain with right-sided sciatica M54.41 Active 245296204 Problem Ventral hernia without obstruction or gangrene K43.9 Active 222895624 Problem History of ovarian cyst Z87.42 Active 939542318 Problem History of gallstones Z87.19 Active 508540609 ALLERGIES No Information ENCOUNTERS Encounter Location Date Diagnosis [facility] [id number] [place] [address] May, [facility] [id number] [place] [address]87 -[address]79 May, [facility] [id number] [place] [address] May, Acute pain of right shoulder M25.511 [facility] [id number] [place] [address] May, [facility] [address] [address] 18 May, 2018 BMI 40.0-44.9, adult Z68.41 and Acute right-sided low back pain with right-sided sciatica M54.41 [facility] [id number] [place] [address]32[address] Apr, [facility] [id number] [place] [address] 24 Mar, 2018 [facility] [address] [address] 21 Mar, 2018 BMI 40.0-44.9, adult Z68.41 ; Well woman exam with routine gynecological exam Z01.419 ; Screening for STD (sexually transmitted disease) Z11.3 and Nausea R11.0 [facility] WALK IN [facility] [id number] [place] [address] 10 Mar, 2018 BMI 40.0-44.9, adult Z68.41 ; Stomach pain R10.9 and Viral gastroenteritis A08.4 [facility] WALK IN [facility] [id number] [place] [address] Jan, [place] [id number] [place] [address] Dec, [place] [address] [address] Dec, [place] [address] [address] Dec, Epigastric pain R10.13 ; Acute pain of right knee M25.561 ; Right wrist pain M25.531 ; Encounter to establish care Z76.89 and BMI 40.0-44.9 , adult Z68.41 [facility] WALK IN [place] [address] [place] [address] November, BMI 40.0-44.9, adult Z68.41 IMMUNIZATIONS No [...]
--- NOTE | 2018-07-20 15:58 | NUR ---
NOTIFIED NURSE PT HAS CHEST PAIN
[2018-07-20] MEDS ORDERED: fentaNYL INJECTION 100 MCG/2 ML AMP IVP ONE (16:30)
[2018-07-20] MEDS ORDERED: NS IV 1000 ML 1,000 ML IV SCH (16:30)
[2018-07-20] MEDS ORDERED: ONDANSETRON 4 MG/2 ML (SDV) Z0FRAN IVP ONE (16:30)
--- NOTE | 2018-07-20 16:30 | NUR ---
PT MADE THIS NURSE AWARE OF X2 ULCERATED AREAS OF CONCERN TO DORSAL RT BUTTOCKS. PROVIDER MADE AWARE.
[2018-07-20 16:31] LABS: BASOPHILS % (AUTO) 0 % (0-10); EOSINOPHILS # (AUTO) 0.1 10^3/uL (0.0-0.3); EOSINOPHILS % (AUTO) 2 % (0-10); HEMATOCRIT 29 % (35-52); HEMOGLOBIN 8.7 G/DL (11.5-16.0); LYMPHOCYTES # (AUTO) 1.6 X 10^3 (1.0-4.0); LYMPHOCYTES % (AUTO) 19 % (12-44); MEAN CORPUSCULAR HEMOGLOBIN 20 PG (25-34); MEAN CORPUSCULAR HGB CONC 30 G/DL (32-36); MEAN CORPUSCULAR VOLUME 67 FL (80-99); MEAN PLATELET VOLUME 11.3 FL (7.4-10.4); MONOCYTES # (AUTO) 0.6 X 10^3 (0.0-1.0); MONOCYTES % (AUTO) 7 % (0-12); NEUTROPHILS # (AUTO) 6.2 X 10^3 (1.8-7.8); NEUTROPHILS % (AUTO) 73 % (42-75); PLATELET COUNT 413 10^3/uL (130-400); RED CELL DISTRIBUTION WIDTH 18.5 % (10.0-14.5); WHITE BLOOD COUNT 8.5 10^3/uL (4.3-11.0)
[2018-07-20 16:52] LABS: ALANINE AMINOTRANSFERASE 11 U/L (0-55); ALBUMIN 4.2 GM/DL (3.2-4.5); ALKALINE PHOSPHATASE 75 U/L (40-136); AMYLASE 53 U/L (25-125); BILIRUBIN,TOTAL 0.4 MG/DL (0.1-1.0); BUN/CREATININE RATIO 12; CALCIUM 8.7 MG/DL (8.5-10.1); CARBON DIOXIDE 23 MMOL/L (21-32); CHLORIDE 106 MMOL/L (98-107); CREATININE SERUM 0.67 MG/DL (0.60-1.30); GFR ESTIMATED > 60; GLUCOSE 79 MG/DL (70-105); LIPASE 19 U/L (8-78); POTASSIUM 3.6 MMOL/L (3.6-5.0); SODIUM 137 MMOL/L (135-145); TOTAL PROTEIN 8.2 GM/DL (6.4-8.2)
[2018-07-20 16:59] LABS: BILIRUBIN,URINE NEGATIVE (NEGATIVE); CLARITY,URINE VERY CLOUDY; COLOR,URINE AMBER; GLUCOSE, URINE (UA) NEGATIVE (NEGATIVE); KETONES,URINE NEGATIVE (NEGATIVE); LEUKOCYTE ESTERASE ,URINE 1+ (NEGATIVE); NITRITE,URINE NEGATIVE (NEGATIVE); PH,URINE 5 (5-9); PROTEIN,URINE 2+ (NEGATIVE); UROBILINOGEN,URINE NORMAL (NORMAL)
[2018-07-20 17:10] LABS: BACTERIA,URINE MODERATE /HPF
[2018-07-20] MEDS ORDERED: IOHEXOL 350 MG/ML 100 ML (OMNIPAQUE 350) VIAL IV ONE (17:45)
[2018-07-20] MEDS ORDERED: RECEIVED CONTRAST (Hold Metformin) IV SCH (17:45)
[2018-07-20] MEDS ORDERED: NS 100 ML (IVPB) BAG IV ONE (17:45)
--- NOTE | 2018-07-20 18:07 | Diagnostic Imaging Report ---
PROCEDURE: CT abdomen and pelvis with contrast. TECHNIQUE: Multiple contiguous axial images were obtained through the abdomen and pelvis after administration of intravenous contrast. INDICATION: None given. FINDINGS: The heart size is normal. The lung bases are clear. The liver is normal in size and without focal lesions. The gallbladder is unremarkable. There is no biliary ductal dilatation. The spleen is normal. The pancreas and adrenal glands are unremarkable. The kidneys are normal in appearance. The aorta is nonaneurysmal. Bowel gas pattern is nonspecific. There is no free air. There is no ascites. There are no focal inflammatory changes. There is no pelvic mass, adenopathy, or free fluid. There is no CT evidence of appendicitis. The osseous structures are unremarkable. Note is again made of some sclerosis of the sacroiliac joints. IMPRESSION: 1. Sclerosis of the SI joints bilaterally. Again, this is nonspecific however seronegative spondyloarthropathy cannot be excluded. Recommend clinical correlation. 2. No other acute abnormality in the abdomen or pelvis. Dictated by: Dictated on workstation # [id number]
[2018-07-20] MEDS ORDERED: ONDN4T PO (18:14)
--- NOTE | 2018-07-20 18:14 | ED Abdominal Pain ---
General Chief Complaint: Abdominal/GI Problems Stated Complaint: BURNING IN CHEST Nursing Triage Note: PT AMB TO ROOM #8 W/O DIFFICULTY. A&OX4. UPON ARRIVAL PT TEAFUL AND MOANING IN PAIN. REPORTS BURNING PAIN IN EPIGASTRUM RADIATING DISTALLY TO MEIDAL LOWER ABD. PT REPORTS PAIN BEGAN APPROX X4 DAYS AGO AND HAS INCREASED IN SEVERITY. REPORTS NAUSEA AND DECREASED APPETITE. DENIES VOMITING. Sepsis Screen: No Definite Risk Source of Information: Patient Exam Limitations: No Limitations History of Present Illness Date Seen by Provider: Jul 20, 2018 Time Seen by Provider: 16:23 Initial Comments 33-year-old female who presents to the emergency room with complaints of epigastric abdominal pain that radiates to her left lower abdomen. She reports this began 4 days ago and has had increasing pain, nausea, vomiting, diarrhea. Denies fevers. Timing/Duration: 3-4 Days Severity/Quality: Cramping Location: Epigastric Radiation: LLQ Activities at Onset: None Associated Symptoms: Nausea/Vomiting Allergies and Home Medications Allergies Coded Allergies: No Known Drug Allergies (Unverified , 09/23/17) Home Medications Amoxicillin 500 Mg Tablet, 1,000 MG PO BID Prescribed by: JOSÉ MIGUEL SIERRA on 12/13/17 1758 Amoxicillin 500 Mg Capsule, 500 MG PO BID Prescribed by: BRITTA PRAKASH on 04/28/18 1625 Clarithromycin 500 Mg Tablet, 500 MG PO BID Prescribed by: JOSÉ MIGUEL SIERRA on 12/13/17 1758 Diclofenac Sodium 75 Mg Tablet.dr, 75 MG PO BID PRN for pain Prescribed by: DAX ROLAND on 11/22/17 191 Omeprazole 20 Mg Capsule.dr, 20 MG PO BID Prescribed by: JOSÉ MIGUEL SIERRA on 12/13/17 1758 Omeprazole 40 Mg Capsule., 40 MG PO DAILY Prescribed by: WESLEY WARE on 01/07/18 1506 Ondansetron 4 Mg Tab.rapdis, 4 MG SL Q4H PRN for NAUSEA/VOMITING-1ST LINE Prescribed by: JOSÉ MIGUEL SIERRA on 09/24/17 0130 Ondansetron HCl 4 Mg Tab, 4 MG PO Q4H PRN for NAUSEA/VOMITING-1ST LINE Prescribed by: BRITTA PRAKASH on 07/20/18 1814 Sucralfate 1 Gm Tablet, 1 GM PO QIDACHS Prescribed by: WESLEY WARE on 01/07/18 5521 Patient Home Medication List Home Medication List Reviewed: Yes Review of Systems Review of Systems Constitutional: no symptoms reported, see HPI Gastrointestinal: See HPI, Abdominal Pain, Diarrhea, Nausea, Vomiting All Other Systems Reviewed Negative Unless Noted: Yes Past Seoybai-Tjtjzz-Adlegj Hx Past Med/Social Hx: Reviewed Nursing Past Med/Soc Hx Patient Social History Alcohol Use: Denies Use Recreational Drug Use: No Smoking Status: Current Everyday Smoker Type Used: Cigarettes 2nd Hand Smoke Exposure: Yes Recent Foreign Travel: No Contact w/Someone Who Travel: No Recent Infectious Disease Expo: No Recent Hopitalizations: No Physical Abuse: No Sexual Abuse: No Seasonal Allergies Seasonal Allergies: No Past Medical History Surgeries: Yes (HERNIA) Abdominal, Section, Tubal Ligation Respiratory: Yes Asthma Cardiac: No Neurological: No MESH MAN History: Tubal Ligation Genitourinary: No Gastrointestinal: Yes (H. pylori) Ulcer Musculoskeletal: No Endocrine: No HEENT: No Cancer: No Psychosocial: No Integumentary: No Blood Disorders: No Family Medical History Reviewed Nursing Family Hx Physical Exam Vital Signs Vital Signs - First Documented 07/20/18 16:00 Temp 99.0 Pulse 87 Resp 18 B/P (MAP) 150/91 (110) Pulse Ox 100 O2 Delivery Room Air Capillary Refill : Less Than 3 Seconds Height/Weight/BMI Height: 4'9.00" Weight: 185lbs. oz. 83.367988lt; BMI Method:Stated General Appearance: WD/WN, no apparent distress HEENT: PERRL/EOMI, normal ENT inspection, TMs normal, pharynx normal Respiratory: chest non-tender, lungs clear, normal breath sounds, no respiratory distress, no accessory muscle use Cardiovascular: normal peripheral pulses, regular rate, rhythm, no edema, no gallop, no JVD, no murmur Gastrointestinal: normal bowel sounds, soft, no organomegaly, no pulsatile mass , tenderness (left lower quadrant tenderness) Extremities: normal capillary refill Neurologic/Psychiatric: alert, normal mood/affect, oriented x 3 Skin: normal color, warm/dry Progress/Results/Core Measures Results/Orders Lab Results Laboratory Tests Test 07/20/18 16:08 07/20/18 16:50 Range/Units White Blood Count 8.5 4.3-11.0 10^3/uL Red Blood Count 4.40 4.35-5.85 10^6/uL Hemoglobin 8.7 L 11.5-16.0 G/DL Hematocrit 29 L 35-52 % Mean Corpuscular Volume 67 L 80-99 FL Mean Corpuscular Hemoglobin 20 L 25-34 PG Mean Corpuscular Hemoglobin Concent 30 L 32-36 G/DL Red Cell Distribution Width 18.5 H 10.0-14.5 % Platelet Count 413 H 130-400 10^3/uL Mean Platelet Volume 11.3 H 7.4-10.4 FL Neutrophils (%) (Auto) 73 42-75 % Lymphocytes (%) (Auto) 19 12-44 % Monocytes (%) (Auto) 7 0-12 % Eosinophils (%) (Auto) 2 0-10 % Basophils (%) (Auto) 0 0-10 % Neutrophils # (Auto) 6.2 1.8-7.8 X 10^3 Lymphocytes # (Auto) 1.6 1.0-4.0 X 10^3 Monocytes # (Auto) 0.6 0.0-1.0 X 10^3 Eosinophils # (Auto) 0.1 0.0-0.3 10^3/uL Basophils # (Auto) 0.0 0.0-0.1 10^3/uL Sodium Level 137 135-145 MMOL/L Potassium Level 3.6 3.6-5.0 MMOL/L Chloride Level 106 98-107 MMOL/L Carbon Dioxide Level 23 21-32 MMOL/L Anion Gap 8 5-14 MMOL/L Blood Urea Nitrogen 8 7-18 MG/DL Creatinine 0.67 0.60-1.30 MG/DL Estimat Glomerular Filtration Rate > 60 BUN/Creatinine Ratio 12 Glucose Level 79 70-105 MG/DL Calcium Level 8.7 8.5-10.1 MG/DL Corrected Calcium 8.5 8.5-10.1 MG/DL Total Bilirubin 0.4 0.1-1.0 MG/DL Aspartate Amino Transf (AST/SGOT) 17 5-34 U/L Alanine Aminotransferase (ALT/SGPT) 11 0-55 U/L Alkaline Phosphatase 75 40-136 U/L Total Protein 8.2 6.4-8.2 GM/DL Albumin 4.2 3.2-4.5 GM/DL Amylase Level 53 25-125 U/L Lipase 19 8-78 U/L Serum Test, Qualitative NEGATIVE NEGATIVE Urine Color ELZBIETA H Urine Clarity VERY CLOUDY H Urine pH 5 5-9 Urine Specific [place] 1.025 H 1.016-1.022 Urine Protein 2+ H NEGATIVE Urine Glucose (UA) NEGATIVE NEGATIVE Urine Ketones NEGATIVE NEGATIVE Urine Nitrite NEGATIVE NEGATIVE Urine Bilirubin NEGATIVE NEGATIVE Urine Urobilinogen NORMAL NORMAL MG/DL Urine Leukocyte Esterase 1+ H NEGATIVE Urine RBC (Auto) NEGATIVE NEGATIVE Urine RBC NONE /HPF Urine WBC 2-5 /HPF Urine Squamous Epithelial Cells 10-25 H /HPF Urine Crystals NONE /LPF Urine Bacteria MODERATE H /HPF Urine Casts NONE /LPF Urine Mucus NEGATIVE /LPF Urine Culture Indicated NO Micro Results Microbiology 07/20/18 Gram Stain - Final, Resulted 07/20/18 Wound Culture - Preliminary, Resulted Staphylococcus aureus My Orders Orders - BRITTA PRAKASH Comprehensive Metabolic Panel (07/20/18 16:23) Lipase (07/20/18 16:23) Amylase (07/20/18 16:23) Ua Culture If Indicated (07/20/18 16:23) Hcg,Qualitative Serum (07/20/18 16:23) Saline Lock/Iv-Start (07/20/18 16:23) Cbc With Automated Diff (07/20/18 16:23) Ct Abdomen/Pelvis W (07/20/18 16:23) Ondansetron Injection (Zofran Injectio (07/20/18 16:30) Fentanyl Injection (Sublimaze Injection (07/20/18 16:30) Ns Iv 1000 Ml (Sodium Chloride 0.9%) (07/20/18 16:30) Wound Culture (07/20/18 16:59) Iohexol Injection (Omnipaque 350 Mg/Ml 1 (07/20/18 17:45) Contrast Received (Contrast Received) (07/20/18 17:45) Ns (Ivpb) (Sodium Chloride 0.9% Ivpb Bag (07/20/18 17:45) Medications Given in ED Vital Signs/I&O 07/20/18 07/20/18 16:00 18:34 Temp 99.0 99.0 Pulse 87 86 Resp 18 18 B/P (MAP) 150/91 (110) 139/86 (103) Pulse Ox 100 100 O2 Delivery Room Air Room Air Blood Pressure Mean: 110 Progress Progress Note : Time: 18:00 Progress Note I have seen and evaluated the patient. I've informed her of her laboratory and imaging studies. She reports she is feeling much better at this time. She agrees with plans of care, plans for discharge, return precautions were given.1820: Nursing staff reports that the patient became angry upon discharge and refused to take her discharge paperwork. The patient voice no concerns with me when discussing discharge plan. The nursing aid took her papers out to her in the waiting room and the patient was found to be getting food to eat out of the vending machine and did agree to take her discharge paperwork. Diagnostic Imaging Diagonstic Imaging: CT Plain Films/CT/US/NM/MRI: abdomen, pelvis Comments NAME: TARUN SINGH [facility] REC#: [id number] PT STATUS: DEP ER : 1985 PHYSICIAN: BRITTA PRAKASH ADMIT DATE: 07/20/18/ER Signed Date of Exam: 07/20/18 CT ABDOMEN/PELVIS W PROCEDURE: CT abdomen and pelvis with contrast. TECHNIQUE: Multiple contiguous axial images were obtained through the abdomen and pelvis after administration of intravenous contrast. INDICATION: None given. FINDINGS: The heart size is normal. The lung bases are clear. The liver is normal in size and without focal lesions. The gallbladder is unremarkable. There is no biliary ductal dilatation. The spleen is normal. The pancreas and adrenal glands are unremarkable. The kidneys are normal in appearance. The aorta is nonaneurysmal. Bowel gas pattern is nonspecific. There is no free air. There is no ascites. There are no focal inflammatory changes. There is no pelvic mass, adenopathy, or free fluid. There is no CT evidence of appendicitis. The osseous structures are unremarkable. Note is again made of some sclerosis of the sacroiliac joints. IMPRESSION: 1. Sclerosis of the SI joints bilaterally. Again, this is nonspecific however seronegative spondyloarthropathy cannot be excluded. Recommend clinical correlation. 2. No other acute abnormality in the abdomen or pelvis. Dictated by: Dictated on workstation # [id number] Dict: 07/20/18 1800 Trans: 07/20/18 1842 Interpreted by: MARK HORN MD Electronically signed by: MARK HORN MD 07/20/18 9203 Reviewed: Reviewed by Me Departure Impression Primary Impression: Nausea and vomiting Additional Impression: Epigastric pain Disposition: HOME, SELF-CARE Condition: Stable/Unchanged Departure-Patient Inst. Decision time for Depature: 18:13 Referrals: [facility] (PCP/Family) Primary Care Physician Patient Instructions: Acute Abdomen (Belly Pain), Adult (DC) Add. Discharge Instructions: Take medications as directed. Tylenol and Motrin as directed by the bottle for pain relief. Follow-up with your primary care provider within 1 week for recheck. Return back to the emergency room for any worsening symptoms or concerns as needed. All discharge instructions reviewed with patient and/or family. Voiced understanding. Scripts Ondansetron HCl (Zofran) 4 Mg Tab 4 MG PO Q4H PRN for NAUSEA/VOMITING-1ST LINE, #14 TAB Prov: BRITTA PRAKASH 07/20/18 BRITTA PRAKASH Jul 20, 2018 18:14
[2018-07-20 18:34] VITALS: BP 139/86
[2018-07-24] MEDS ORDERED: CEFU250T80 PO (18:23)
== END 2018-07-20 18:36 | disposition home or self-care (01) ==
LOC: EDUNIT# 15:48 → ER 15:49
DX: R11.2 Nausea with vomiting, unspecified (principal); R10.13 Epigastric pain; J45.909 Unspecified asthma, uncomplicated; F17.210 Nicotine dependence, cigarettes, uncomplicated; Z98.890 Other specified postprocedural states; Z87.19 Personal history of other diseases of the digestive system; Z86.19 Personal history of other infectious and parasitic diseases; Z98.51 Tubal ligation status
CPT/HCPCS: 36415; 74177; 80053; 81000; 82150; 83690; 84703; 85025; 87070; 87077; 87186; 87205

== ENCOUNTER 2019-02-05 20:24 | Emergency (ER) | payer MEDICAID ==
[~2019-02-05] VITALS: Ht 154.9 cm; Wt 93.4 kg
[~2019-02-05 20:24] MED LIST changes: +CEFU250T80 PO; -OMEP20CA12 PO; +OMEP20CA13 PO; +ONDN4T PO
--- OUTSIDE RECORDS SUMMARY | 2019-02-05 20:29 | XMS REPORT | Continuity of Care Document ---
Author Organization Unknown Address Unknown Phone Unavailable Allergies There is no data. Medications There is no data. Problems There is no data. Procedures There is no data. Results Test Result Range PLATELET ESTIMATION - 12/05/17 12:43 PLATELET ESTIMATION ADEQUATE ADEQUATE CBC MORPHOLOGY - 12/05/17 12:43 CBC MORPHOLOGY NORMAL CULTURE, GENITAL - 03/24/18 14:22 CULTURE, GENITAL SEE NOTE NRG SUREPATH PAP AND HPV mRNA E6/E7 - 03/24/18 14:22 CLINICAL INFORMATION: NRG LMP: 03/21/18 NRG PREV. PAP: UNKNOWN NRG PREV. BX: N/A NRG SOURCE: Cervix NRG STATEMENT OF ADEQUACY: NRG INTERPRETATION/RESULT: NRG HAND TIRE TRIMMER: NRG HPV mRNA E6/E7, SUREPATH VIAL Not Detected NOT DETECTED GENERAL CATEGORIZATION: NRG COMMENT: NRG PATHOLOGIST: NRG COMMENT NRG Encounters ACCT No. Visit Date/Time Discharge Status Pt. Type Provider Facility Loc./Unit Complaint [id number] 01/10/2019 11:00:00 01/10/2019 23:59:59 CLS Outpatient [facility] [id number] 03/24/2018 10:20:00 Document Registration [id number] 12/05/2017 11:40:00 Document Registration
--- NOTE | 2019-02-05 21:26 | ED Upper Extremity ---
General Chief Complaint: Upper Extremity Stated Complaint: R FINGER PAIN / DIZZY Nursing Triage Note: Patient ambulatory to ER triage with complaint of right hand pain. Patient states 1 week ago she was cleaning and her hand scraped across a nail. She has had swelling and pain to the hand since. She has a black raised area on hand. Nursing Sepsis Screen: No Definite Risk Source: patient Exam Limitations: no limitations History of Present Illness Date Seen by Provider: Feb 05, 2019 Time Seen by Provider: 21:24 Initial Comments To ER with reports of pain to the radial side proximal phalanx right pointer finger. She raised her hand abruptly a few days ago and a nail punctured it. Onset: just prior to arrival Severity: moderate Pain/Injury Location: right 2nd finger Method of Injury: direct blow Modifying Factors: Worse With Movement Allergies and Home Medications Allergies Coded Allergies: No Known Drug Allergies (Unverified , 09/23/17) Home Medications Amoxicillin 500 Mg Tablet, 1,000 MG PO BID Prescribed by: JOSÉ MIGUEL SIERRA on 12/13/17 175 Amoxicillin 500 Mg Capsule, 500 MG PO BID Prescribed by: BRITTA PRAKASH on 04/28/18 1625 Cefuroxime Axetil 250 Mg Tablet, 250 MG PO BID, (Reported) Clarithromycin 500 Mg Tablet, 500 MG PO BID Prescribed by: JOSÉ MIGUEL SIERRA on 12/13/17 175 Clindamycin HCl 300 Mg Capsule, 300 MG PO TID Prescribed by: KIM AYALA on 02/05/19 2135 Diclofenac Sodium 75 Mg Tablet.dr, 75 MG PO BID PRN for pain Prescribed by: DAX ROLAND on 11/22/17 191 Omeprazole 20 Mg Capsule.dr, 20 MG PO BID Prescribed by: JOSÉ MIGUEL SIERRA on 12/13/17 175 Omeprazole 40 Mg Capsule.dr, 40 MG PO DAILY Prescribed by: WESLEY WARE on 01/07/18 1506 Ondansetron 4 Mg Tab.rapdis, 4 MG SL Q4H PRN for NAUSEA/VOMITING-1ST LINE Prescribed by: JOSÉ MIGUEL SIERRA on 09/24/17 0130 Ondansetron HCl 4 Mg Tab, 4 MG PO Q4H PRN for NAUSEA/VOMITING-1ST LINE Prescribed by: BRITTA PRAKASH on 07/20/18 1814 Sucralfate 1 Gm Tablet, 1 GM PO QIDACHS Prescribed by: WESLEY WARE on 01/07/18 1506 Patient Home Medication List Home Medication List Reviewed: Yes Review of Systems Constitutional: see HPI EENTM: see HPI Respiratory: no symptoms reported Cardiovascular: no symptoms reported Genitourinary: no symptoms reported Musculoskeletal: see HPI Skin: no symptoms reported Psychiatric/Neurological: No Symptoms Reported Past Zxavxsw-Lwbuhz-Xtmlwc Hx Patient Social History Alcohol Use: Denies Use Recreational Drug Use: No Smoking Status: Current Everyday Smoker Type Used: Electronic/Vapor 2nd Hand Smoke Exposure: Yes Recent Foreign Travel: No Contact w/Someone Who Travel: No Recent Infectious Disease Expo: No Recent Hopitalizations: No Physical Abuse: No Sexual Abuse: No Mistreated: No Fear: No Immunizations Up To Date Tetanus Booster (TDap): Less than 5yrs Seasonal Allergies Seasonal Allergies: No Past Medical History Surgeries: Yes (HERNIA) Abdominal, Section, Tubal Ligation Respiratory: Yes Asthma Cardiac: No Neurological: No Last Menstrual Period: Dec 21, 2018 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 pylori) Ulcer Musculoskeletal: No Endocrine: No HEENT: No Cancer: No Psychosocial: No Integumentary: No Blood Disorders: No Physical Exam Vital Signs Vital Signs - First Documented 02/05/19 20:42 Temp 98.0 Pulse 87 Resp 16 B/P (MAP) 121/75 (90) Pulse Ox 97 O2 Delivery Room Air Capillary Refill : Less Than 3 Seconds Height, Weight, BMI Height: 5'1.00" Weight: 206lbs. oz. 93.510363ef; BMI Method:Stated General Appearance: WD/WN, no apparent distress HEENT: PERRL/EOMI, normal ENT inspection Respiratory: no respiratory distress, no accessory muscle use Shoulder: normal inspection, non-tender Elbow/Forearm: normal inspection, non-tender Wrist: Yes normal inspection, Yes non-tender Hand: Right (there is a 4 mm abscess/pustule with about 1 cm of surrounding erythema to the radial side proximal phalanx right pointer finger. This was unroofed with a needle, purulent material expressed. Culture collected and sent to lab.) Neurologic/Tendon: normal sensation, normal motor functions, normal tendon functions Neurologic/Psychiatric: alert, normal mood/affect, oriented x 3 Skin: normal color, warm/dry No pain with passive flexion or extension to suggest tenosynovitis Progress/Results/Core Measures Results/Orders My Orders Orders - KIM AYALA APRN Hydrocodone/Apap 5/325 Tablet (Lortab 5 (02/05/19 21:30) Clindamycin Capsule (Cleocin Capsule) (02/05/19 21:30) Wound Culture (02/05/19 21:22) Hand, Right, 3 Views (02/05/19 21:27) Medications Given in ED Current Medications Medications Dose Ordered Sig/Giana Route Start Time Stop Time Status Last Admin Dose Admin Acetaminophen/ Hydrocodone Bitart 1 tab ONCE ONCE PO 02/05/19 21:30 02/05/19 21:31 DC 02/05/19 21:33 1 TAB Clindamycin HCl 300 mg ONCE ONCE PO 02/05/19 21:30 02/05/19 21:31 DC 02/05/19 21:33 300 MG Vital Signs/I&O 02/05/19 20:42 Temp 98.0 Pulse 87 Resp 16 B/P (MAP) 121/75 (90) Pulse Ox 97 O2 Delivery Room Air Blood Pressure Mean: 90 Departure Communication (Admissions) 2207-there is a foreign body seen on the radial side proximal phalanx pointer finger at the site of the abscess. A small pustule, unlikely this with incision and drainage, no facial pain, prescribed antibiotics and have her follow-up with your primary care. Impression Primary Impression: Abscess of finger Qualified Codes: L02.511 - Cutaneous abscess of right hand Disposition: HOME, SELF-CARE Condition: Stable Departure-Patient Inst. Decision time for Depature: 21:26 Referrals: NO,LOCAL PHYSICIAN (PCP/Family) Primary Care Physician Patient Instructions: Skin Abscess Add. Discharge Instructions: 1. Warm compresses to the area 2. Tylenol and ibuprofen for pain control 3. Antibiotics as directed 4. Follow-up with your doctor next week for recheck return to ER for any worsening. All discharge instructions reviewed with patient and/or family. Voiced understanding. Scripts Clindamycin HCl (Clindamycin HCl) 300 Mg Capsule 300 MG PO TID, #21 CAP Prov: KIM AYALA APRN 02/05/19 KIM AYALA APRN Feb 05, 2019 21:26
[2019-02-05] MEDS ORDERED: CLINDAMYCIN 150 MG (CLEOCIN) CAP PO ONE (21:30)
[2019-02-05] MEDS ORDERED: HYDROcodone/APAP 5 MG/325 MG (LORTAB) TAB PO ONE (21:30)
[2019-02-05] MEDS ORDERED: CLIN300C11 PO (21:35)
[2019-02-05 22:19] VITALS: BP 120/70
--- NOTE | 2019-02-06 07:41 | Diagnostic Imaging Report ---
INDICATION: Swelling and pain x1 week after hand scraping across a nail. TECHNIQUE: 4 views of the right hand. CORRELATION STUDY: None FINDINGS: There is normal alignment and appearance of the osseous structures of the hand. The joint spaces are maintained. Cystic change about the ulnar styloid. There is no acute fracture. At the area marked as the region of concern, there is an approximately 3-4 mm in length, thin metallic density at the base of the index finger consistent with soft tissue foreign body. Soft tissue swelling is suggested over the first digit. IMPRESSION: 1. Negative for acute bony abnormality of the hand. 2. Findings compatible with a 3-4 mm length thin metallic foreign body at the base of the index finger with associated soft tissue swelling. Dictated by: Dictated on workstation # [id number]
== END 2019-02-05 22:20 | disposition home or self-care (01) ==
LOC: EDUNIT# 20:24 → ER 20:25
DX: L02.511 Cutaneous abscess of right hand (principal); J45.909 Unspecified asthma, uncomplicated; F17.290 Nicotine dependence, other tobacco product, uncomplicated; Z98.51 Tubal ligation status
CPT/HCPCS: 73130; 87070; 87077; 87186; 87205

== ENCOUNTER 2019-03-10 19:02 | Emergency (ER) | payer MEDICAID ==
[~2019-03-10] VITALS: Ht 144.8 cm; Wt 93.0 kg
[~2019-03-10 19:02] MED LIST changes: +CLIN300C11 PO
[2019-03-10] MEDS ORDERED: ASPIRIN 81 MG CHEW (CHILDREN'S ASA) ONE (19:43)
[2019-03-10] MEDS ORDERED: LIDOCAINE 2% VISCOUS 15 ML UDC ONE (19:44)
[2019-03-10] MEDS ORDERED: ANTACID SUSP 30 ML UDC (MYLANTA) ONE (19:44)
[2019-03-10] MEDS ORDERED: NS IV 1000 ML 1,000 ML IV STA (19:48)
[2019-03-10] MEDS ORDERED: ASPIRIN 81 MG CHEW (CHILDREN'S ASA) PO STA (19:52)
[2019-03-10] MEDS ORDERED: ANTACID SUSP 30 ML UDC (MYLANTA) PO ONE (20:00)
[2019-03-10] MEDS ORDERED: LIDOCAINE 2% VISCOUS 15 ML UDC PO ONE (20:00)
[2019-03-10 20:13] LABS: BASOPHILS % (AUTO) 0 % (0-10); EOSINOPHILS # (AUTO) 0.2 10^3/uL (0.0-0.3); EOSINOPHILS % (AUTO) 3 % (0-10); HEMATOCRIT 29 % (35-52); HEMOGLOBIN 8.5 G/DL (11.5-16.0); LYMPHOCYTES # (AUTO) 2.5 X 10^3 (1.0-4.0); LYMPHOCYTES % (AUTO) 31 % (12-44); MEAN CORPUSCULAR HEMOGLOBIN 19 PG (25-34); MEAN CORPUSCULAR HGB CONC 30 G/DL (32-36); MEAN CORPUSCULAR VOLUME 63 FL (80-99); MEAN PLATELET VOLUME 11.3 FL (7.4-10.4); MONOCYTES # (AUTO) 0.8 X 10^3 (0.0-1.0); MONOCYTES % (AUTO) 10 % (0-12); NEUTROPHILS # (AUTO) 4.6 X 10^3 (1.8-7.8); NEUTROPHILS % (AUTO) 56 % (42-75); PLATELET COUNT 439 10^3/uL (130-400); WHITE BLOOD COUNT 8.2 10^3/uL (4.3-11.0)
--- NOTE | 2019-03-10 20:17 | ED Chest Pain ---
General Chief Complaint: Chest Pain Stated Complaint: CHEST PAIN, SOB Source: patient Exam Limitations: no limitations (JOSÉ MIGUEL CHAUDHARI MED STUDENT) History of Present Illness Date Seen by Provider: Mar 10, 2019 Time Seen by Provider: 19:10 Initial Comments The patient is a WD/WN 33 y/o female who presents with a chief complaint of chest pain and shortness of breath. She reports that she has been waking up every morning for the past 4 days with SOB. She typically gets up and goes outside an the SOB resolves within 10 minutes. She reports that sitting up helps with the SOB. She states that the chest pain began yesterday with a burning sensation in her upper epigastric area that does not radiate. She says that the pain was initially intermittent but is now constant and has progressively gotten more intense and is now at 9/10. The pain is not associated with eating and she cannot recall anything that makes the symptoms worse. She has been experiencing nausea and she admits to vomiting once 2 days ago. She denies any black or bloody stools. She reports that she has not had a bowel movement in over a week and she states that this is normal for her. Timing/Duration: 3-4 days Severity/Quality: severe, burning Location: epigastric Radiation: no radiation Activities at Onset: none Prior CP/Workup: no prior chest pain (JOSÉ MIGUEL CHAUDHARI MED STUDENT) Severity/Quality: moderate Modifying Factors: worse with lying down ASA po MUNICIPAL FIREFIGHTER: No NTG SL MUNICIPAL FIREFIGHTER: No Associated Symptoms: No fever/chills; nausea/vomiting, shortness of breath (CINDY YEPEZ MD) Allergies and Home Medications Allergies Coded Allergies: No Known Drug Allergies (Unverified , 03/10/19) Home Medications Amoxicillin 500 Mg Tablet, 1,000 MG PO BID Prescribed by: JOSÉ MIGUEL SIERRA on 12/13/17 1758 Amoxicillin 500 Mg Capsule, 500 MG PO BID Prescribed by: BRITTA PRAKASH on 04/28/18 1625 Cefuroxime Axetil 250 Mg Tablet, 250 MG PO BID, (Reported) Clarithromycin 500 Mg Tablet, 500 MG PO BID Prescribed by: JOSÉ MIGUEL SIERRA on 12/13/17 1758 Clindamycin HCl 300 Mg Capsule, 300 MG PO TID Prescribed by: KIM AYALA on 02/05/19 2135 Diclofenac Sodium 75 Mg Tablet.dr, 75 MG PO BID PRN for pain Prescribed by: DAX ROLAND on 11/22/171914 Omeprazole 20 Mg Capsule.dr, 20 MG PO BID Prescribed by: JOSÉ MIGUEL SIERRA on 12/13/17 175 Omeprazole 40 Mg Capsule.dr, 40 MG PO DAILY Prescribed by: WESLEY WARE on 01/07/18 1506 Ondansetron 4 Mg Tab.rapdis, 4 MG SL Q4H PRN for NAUSEA/VOMITING-1ST LINE Prescribed by: JOSÉ MIGUEL SIERRA on 09/24/17 0130 Ondansetron HCl 4 Mg Tab, 4 MG PO Q4H PRN for NAUSEA/VOMITING-1ST LINE Prescribed by: BRITTA PRAKASH on 07/20/18 181 Sucralfate 1 Gm Tablet, 1 GM PO QIDACHS Prescribed by: WESLEY WARE on 01/07/18 1506 Patient Home Medication List Home Medication List Reviewed: Yes (CINDY YEPEZ MD) Review of Systems Review of Systems Constitutional: No fever, No weakness Respiratory: Denies Cough; Shortness of Air Cardiovascular: Chest Pain; Denies Palpitations Gastrointestinal: Abdominal Pain, Constipated (JOSÉ MIGUEL CHAUDHARI STUDENT) Constitutional: see HPI EENTM: No Nose Congestion, No Throat Pain Respiratory: Denies Cough; Shortness of Air Cardiovascular: Chest Pain; Denies Palpitations Gastrointestinal: Abdominal Pain, Constipated, Nausea, Vomiting Genitourinary: No Symptoms Reported Musculoskeletal: no symptoms reported Skin: no symptoms reported Psychiatric/Neurological: No Symptoms Reported Endocrine: No Symptoms Reported (CINDY YEPEZ MD) Past Erqrbtp-Klkraf-Djxoyb Hx Past Med/Social Hx: Reviewed Nursing Past Med/Soc Hx (CINDY YEPEZ MD) Patient Social History Alcohol Use: Denies Use Recreational Drug Use: No Type Used: Electronic/Vapor 2nd Hand Smoke Exposure: Yes Recent Hopitalizations: No Physical Abuse: No Sexual Abuse: No Mistreated: No Fear: No (JOSÉ MIGUEL CHAUDHARI STUDENT) Immunizations Up To Date Tetanus Booster (TDap): Less than 5yrs (JOSÉ MIGUEL CHAUDHARI) Seasonal Allergies Seasonal Allergies: No (ETCHESON,JOSÉ MIGUEL K MED STUDENT) Past Medical History Surgeries: Yes (HERNIA) Abdominal, Section, Tubal Ligation Respiratory: Yes Asthma Cardiac: No Neurological: No 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 pylori) Ulcer Musculoskeletal: No Endocrine: No HEENT: No Cancer: No Psychosocial: No Integumentary: No Blood Disorders: No (JOSÉ MIGUEL CHAUDHARI STUDENT) Family Medical History Reviewed Nursing Family Hx (CINDY YEPEZ MD) Physical Exam Vital Signs Vital Signs - First Documented 03/10/19 19:07 Temp 100.2 Pulse 73 Resp 14 B/P (MAP) 142/90 (107) Pulse Ox 97 O2 Delivery Room Air (CINDY YEPEZ MD) Vital Signs Capillary Refill : Less Than 3 Seconds (JOSÉ MIGUEL CHAUDHARI STUDENT) Height, Weight, BMI Height: 5'1.00" Weight: 206lbs. oz. 93.544283it; BMI Method:Stated General Appearance: No Apparent Distress, WD/WN Respiratory: Chest Non Tender, Lungs Clear, Normal Breath Sounds Cardiovascular: Regular Rate, Rhythm, No Edema, No Murmur Gastrointestinal: Normal Bowel Sounds, Soft, Tenderness Neurologic/Psychiatric: Alert, Oriented x3, Normal Mood/Affect Skin: Normal Color, Warm/Dry (JOSÉ MIGUEL CHAUDHARI MED STUDENT) General Appearance: No Apparent Distress, WD/WN HEENT: PERRL/EOMI, Pharynx Normal Neck: Non Tender, Supple Respiratory: Lungs Clear, Normal Breath Sounds Cardiovascular: Regular Rate, Rhythm, No Edema, No Murmur Gastrointestinal: Soft, Tenderness (right upper quadrant) Extremity: Normal Range of Motion, Other (mild tenderness to the right ankle lateral aspect without significant swelling.) Neurologic/Psychiatric: Alert, Oriented x3 Skin: Normal Color, Warm/Dry (CINDY YEPEZ MD) Progress/Results/Core Measures Results/Orders Lab Results Laboratory Tests Test 03/10/19 19:05 Range/Units White Blood Count 8.2 4.3-11.0 10^3/uL Red Blood Count 4.53 4.35-5.85 10^6/uL Hemoglobin 8.5 L 11.5-16.0 G/DL Hematocrit 29 L 35-52 % Mean Corpuscular Volume 63 L 80-99 FL Mean Corpuscular Hemoglobin 19 L 25-34 PG Mean Corpuscular Hemoglobin Concent 30 L 32-36 G/DL Red Cell Distribution Width 19.0 H 10.0-14.5 % Platelet Count 439 H 130-400 10^3/uL Mean Platelet Volume 11.3 H 7.4-10.4 FL Neutrophils (%) (Auto) 56 42-75 % Lymphocytes (%) (Auto) 31 12-44 % Monocytes (%) (Auto) 10 0-12 % Eosinophils (%) (Auto) 3 0-10 % Basophils (%) (Auto) 0 0-10 % Neutrophils # (Auto) 4.6 1.8-7.8 X 10^3 Lymphocytes # (Auto) 2.5 1.0-4.0 X 10^3 Monocytes # (Auto) 0.8 0.0-1.0 X 10^3 Eosinophils # (Auto) 0.2 0.0-0.3 10^3/uL Basophils # (Auto) 0.0 0.0-0.1 10^3/uL Sodium Level 139 135-145 MMOL/L Potassium Level 3.7 3.6-5.0 MMOL/L Chloride Level 106 98-107 MMOL/L Carbon Dioxide Level 23 21-32 MMOL/L Anion Gap 10 5-14 MMOL/L Blood Urea Nitrogen 6 L 7-18 MG/DL Creatinine 0.71 0.60-1.30 MG/DL Estimat Glomerular Filtration Rate > 60 BUN/Creatinine Ratio 8 Glucose Level 85 70-105 MG/DL Calcium Level 8.6 8.5-10.1 MG/DL Corrected Calcium 8.4 L 8.5-10.1 MG/DL Total Bilirubin 0.4 0.1-1.0 MG/DL Aspartate Amino Transf (AST/SGOT) 15 5-34 U/L Alanine Aminotransferase (ALT/SGPT) 11 0-55 U/L Alkaline Phosphatase 81 40-136 U/L Troponin I < 0.028 <0.028 NG/ML Total Protein 8.4 H 6.4-8.2 GM/DL Albumin 4.2 3.2-4.5 GM/DL Serum Test, Qualitative NEGATIVE NEGATIVE (CINDY YEPEZ MD) My Orders Orders - CINDY YEPEZ MD Lidocaine 2% Viscous 15 Ml (Xylocaine Vi (03/10/19 20:00) Ns Iv 1000 Ml (Sodium Chloride 0.9%) (03/10/19 19:48) Antacid Suspension (Mylanta Suspension (03/10/19 20:00) Ed Iv/Invasive Line Start (03/10/19 19:48) Cbc With Automated Diff (03/10/19 19:48) Comprehensive Metabolic Panel (03/10/19 19:48) Hcg,Qualitative Serum (03/10/19 19:48) Troponin I (03/10/19 19:48) Chest Pa/Lat (2 View) (03/10/19 19:48) Ekg Tracing (03/10/19 19:48) Aspirin Chewable Tablet (Baby Aspirin Ch (03/10/19 19:52) Aspirin Chewable Tablet (Baby Aspirin Ch (03/10/19 19:43) Antacid Suspension (Mylanta Suspension (03/10/19 19:44) Lidocaine 2% Viscous 15 Ml (Xylocaine Vi (03/10/19 19:44) Famotidine Injection (Pepcid Injection) (03/10/19 20:52) Pantoprazole Injection (Protonix Injecti (03/10/19 21:00) Acetaminophen Tablet (Tylenol Tablet) (03/10/19 20:52) (CINDY YEPEZ MD) Medications Given in ED Current Medications Medications Dose Ordered Sig/Giana Route Start Time Stop Time Status Last Admin Dose Admin Al Hydrox/Mg Hydrox/Simethicone 30 ml ONCE ONCE PO 03/10/19 20:00 03/10/19 20:01 DC 03/10/19 19:55 30 ML Lidocaine HCl 15 ml ONCE ONCE PO 03/10/19 20:00 03/10/19 20:01 DC 03/10/19 19:55 15 ML (CINDY YEPEZ MD) Vital Signs/I&O 03/10/19 03/10/19 19:07 19:07 Temp 100.2 Pulse 73 Resp 14 B/P (MAP) 142/90 (107) Pulse Ox 97 O2 Delivery Room Air (CINDY YEPEZ MD) Progress Progress Note : Time: 20:10 Progress Note The patient is resting comfortably in the exam room. GI cocktail is administered with some relief. EKG was unremarkable. CBC, CMP, and chest x-ray to evaluate further. (JOSÉ MIGUEL CHAUDHARI MED STUDENT) Progress Note : Progress Note Has seen and evaluated the patient and agree with above except as indicated. Have directed the plan of care. Patient is here with shortness of breath each morning for the last several days that improves after sitting outside for about 10 minutes. Has had central chest discomfort today that has persisted throughout the day and some right upper quadrant abdominal pain. Did have some nausea and vomiting which is a little better. Usually has one bowel movement weekly and that has been the case this week. Orders for IV, labs, EKG, chest x-ray, normal saline 1 L bolus and GI cocktail. Monitor patient. 2049: Patient previously on PPI and has been off that for a while. She does report that she has acid problems. I do believe the acid problem is largely responsible for her nighttime problems as she is improved if she is sitting up and worse when she is laying flat. We will go ahead and initiate Protonix 40 mg IV as well as famotidine 20 mg IV. Acetaminophen 1 g by mouth for right ankle pain. We will give Kendall wrap and splint for that. I do not believe x-rays are indicated at this point for that as there is no significant recent injury. She has injured that ankle multiple times in the past. She did fall off a ladder a few weeks ago but had no pain after that. She has to walk quite a bit to get to work and she walked 2 miles to get here tonight, which likely exacerbated the pain. She will restart PPI and follow up with her DrJuan for recheck. I did discuss with her about follow- up with the surgeon for which she will do. Discharged home with return precautions. Patient verbalize understanding instructions and agreement with plan. Due to findings of possible infiltrate in the right middle lobe, we will go ahead and initiate Omnicef and continue the outpatient for 7 days. (CINDY YEPEZ MD) Initial ECG Impression Date: Mar 10, 2019 Initial ECG Impression Time: 19:09 Initial ECG Rate: 65 Initial ECG Rhythm: Normal Sinus Comment Sinus rhythm with normal axis. No evidence of ST elevation SD. Similar to previous done 04/28/18. Interpreted by me. (CINDY YEPEZ MD) Diagnostic Imaging Diagonstic Imaging: Xray Plain Films/CT/US/NM/MRI: chest Comments NAME: ABDOUL SINGHMercedes Stone [facility] REC#: [id number] PT STATUS: REG ER : 1985 PHYSICIAN: CINDY YEPEZ MD ADMIT DATE: 03/10/19/ER Signed Date of Exam: 03/10/19 CHEST PA/LAT (2 VIEW) EXAMINATION: PA and lateral chest. INDICATION: Fever and shortness of breath. FINDINGS: Some minimal patchy opacities are evident within the right middle lobe and may reflect a small region of atelectasis or infiltrate. There is no effusion. There is no pneumothorax. Heart size appears appropriate. Pulmonary vascularity appears normal. IMPRESSION: Minimal patchy opacity within the right middle lobe that may reflect a small region of atelectasis or infiltrate. Dictated by: Dictated on workstation # [id number] Dict: 03/10/192019 Trans: 03/10/192024 Interpreted by: PERCY WHITLOCK MD Electronically signed by: PERCY WHITLOCK MD 03/10/192024 (CINDY YEPEZ MD) Departure Impression Primary Impression: Right middle lobe pneumonia Qualified Codes: J18.1 - Lobar pneumonia, unspecified organism Additional Impressions: Right ankle pain Qualified Codes: M25.571 - Pain in right ankle and joints of right foot Epigastric pain Disposition: 01 HOME, SELF-CARE Condition: Improved Departure-Patient Inst. Decision time for Depature: 20:58 (CINDY YEPEZ MD) Referrals: BERT BIGGS DO NO,LOCAL PHYSICIAN (PCP) Primary Care Physician Patient Instructions: Acid Reflux (Gastroesophageal Reflux Disease), Adult (DC), Acute Abdomen (Belly Pain), Adult (DC), Ankle Sprain (DC), Aspiration Pneumonia (DC), Community-Acquired Pneumonia, Adult (DC) Add. Discharge Instructions: All discharge instructions reviewed with patient and/or family. Voiced understanding. Take medications as directed. Follow-up with the surgeon listed or your choosing for recheck and further evaluation. Call his office on Tuesday. You may take Tylenol/acetaminophen 1000 mg every 6 hours as needed for pain. Use Kendall wrap and splint as needed for comfort for the right ankle. You may use ice pack and elevation as well to decrease pain in the ankle. Follow-up with your doctor for recheck and further evaluation as well. You may also take [id number] Pepcid or the generic famotidine 20 mg daily as needed for stomach upset as well as the prescribed omeprazole if needed. Return for worse pain, fever, vomiting, weakness, breathing problems or other concerns as needed. Scripts Omeprazole (Omeprazole) 40 Mg Capsule.dr 40 MG PO DAILY, #30 CAP Prov: CINDY YEPEZ MD 03/10/19 Cefdinir (Cefdinir) 300 Mg Capsule 300 MG PO BID, #14 CAP 0 Refills Prov: CINDY YEPEZ MD 03/10/19 JOSÉ MIGUEL CHAUDHARI MED STUDENT Mar 10, 2019 20:17 CINDY YEPEZ MD Mar 10, 2019 20:37
[2019-03-10 20:22] LABS: ALANINE AMINOTRANSFERASE 11 U/L (0-55); ALBUMIN 4.2 GM/DL (3.2-4.5); ALKALINE PHOSPHATASE 81 U/L (40-136); BILIRUBIN,TOTAL 0.4 MG/DL (0.1-1.0); BUN/CREATININE RATIO 8; CALCIUM 8.6 MG/DL (8.5-10.1); CARBON DIOXIDE 23 MMOL/L (21-32); CHLORIDE 106 MMOL/L (98-107); CREATININE SERUM 0.71 MG/DL (0.60-1.30); GFR ESTIMATED > 60; GLUCOSE 85 MG/DL (70-105); POTASSIUM 3.7 MMOL/L (3.6-5.0); SODIUM 139 MMOL/L (135-145); TOTAL PROTEIN 8.4 GM/DL (6.4-8.2)
--- NOTE | 2019-03-10 20:23 | Diagnostic Imaging Report ---
EXAMINATION: PA and lateral chest. INDICATION: Fever and shortness of breath. FINDINGS: Some minimal patchy opacities are evident within the right middle lobe and may reflect a small region of atelectasis or infiltrate. There is no effusion. There is no pneumothorax. Heart size appears appropriate. Pulmonary vascularity appears normal. IMPRESSION: Minimal patchy opacity within the right middle lobe that may reflect a small region of atelectasis or infiltrate. Dictated by: Dictated on workstation # [id number]
[2019-03-10] MEDS ORDERED: ACETAMINOPHEN 500 MG TAB (TYLENOL) PO STA (20:52)
[2019-03-10] MEDS ORDERED: FAMOTIDINE 20MG/2ML IV (PEPCID) IV STA (20:52)
[2019-03-10] MEDS ORDERED: PANTOPRAZOLE 40 MG (PROTONIX) VIAL IV ONE (21:00)
[2019-03-10] MEDS ORDERED: CEFDINIR 300 MG (OMNICEF) CAP PO ONE (21:00)
[2019-03-10] MEDS ORDERED: CEFD300C3 PO (21:04)
[2019-03-10] MEDS ORDERED: OMEP40CA36 PO (21:04)
[2019-03-10 21:30] VITALS: BP 110/68
== END 2019-03-10 21:35 | disposition home or self-care (01) ==
LOC: EDUNIT# 19:02 → ER 19:04
DX: J18.1 Lobar pneumonia, unspecified organism (principal); M25.571 Pain in right ankle and joints of right foot; R10.13 Epigastric pain; J45.909 Unspecified asthma, uncomplicated; Z77.22 Contact with and (suspected) exposure to environmental tobacco smoke (acute) (chronic); Z98.51 Tubal ligation status; Z98.890 Other specified postprocedural states
CPT/HCPCS: 36415; 71046; 80053; 84484; 84703; 85025; 93005; 96374; 96375

== ENCOUNTER 2019-03-23 16:07 | Emergency (ER) | payer MEDICAID ==
[~2019-03-23] VITALS: Ht 145 cm; Wt 94.5 kg
[~2019-03-23 16:07] MED LIST changes: +CEFD300C3 PO
--- NOTE | 2019-03-23 16:55 | ED Lower Extremity ---
General Chief Complaint: Lower Extremity Stated Complaint: LEFT LEG PAIN Nursing Triage Note: HILDA STATES THAT STARTING LAST NIGHT SHE HAS HAD A SHARP CRAMPING PAIN FROM BEHIND HER LEFT KNEE ALL THE WAY DOWN TO HER FOOT. Nursing Sepsis Screen: No Definite Risk Source: patient Exam Limitations: no limitations History of Present Illness Date Seen by Provider: Mar 23, 2019 Time Seen by Provider: 16:52 Initial Comments Pain to the posterior mid left calf sudden onset last night when she stepped down she had a sharp pain. She now has increased pain with resisted plantar fle xion of the foot. Onset: just prior to arrival Severity: moderate Pain/Injury Location: left leg Method of Injury: unknown Modifying Factors: Worse With Movement Allergies and Home Medications Allergies Coded Allergies: No Known Drug Allergies (Unverified , 03/10/19) Home Medications Amoxicillin 500 Mg Tablet, 1,000 MG PO BID Prescribed by: JOSÉ MIGUEL SIERRA on 12/13/17 175 Amoxicillin 500 Mg Capsule, 500 MG PO BID Prescribed by: BRITTA PRAKASH on 04/28/18 1625 Cefdinir 300 Mg Capsule, 300 MG PO BID Prescribed by: CINDY YEPEZ on 03/10/192103 Cefuroxime Axetil 250 Mg Tablet, 250 MG PO BID, (Reported) Clarithromycin 500 Mg Tablet, 500 MG PO BID Prescribed by: JOSÉ MIGUEL SIERRA on 12/13/17 175 Clindamycin HCl 300 Mg Capsule, 300 MG PO TID Prescribed by: KIM AYALA on 02/05/19 213 Diclofenac Sodium 75 Mg Tablet.dr, 75 MG PO BID PRN for pain Prescribed by: DAX ROLAND on 11/22/17 191 Omeprazole 20 Mg Capsule.dr, 20 MG PO BID Prescribed by: JOSÉ MIGUEL SIERRA on 12/13/17 175 Omeprazole 40 Mg Capsule., 40 MG PO DAILY Prescribed by: WESLEY WARE on 01/07/18 1506 Omeprazole 40 Mg Capsule.dr, 40 MG PO DAILY Prescribed by: CINDY YEPEZ on 03/10/192103 Ondansetron 4 Mg Tab.rapdis, 4 MG SL Q4H PRN for NAUSEA/VOMITING-1ST LINE Prescribed by: JOSÉ MIGUEL SIERRA on 09/24/17 0130 Ondansetron HCl 4 Mg Tab, 4 MG PO Q4H PRN for NAUSEA/VOMITING-1ST LINE Prescribed by: BRITTA PRAKASH on 07/20/18 1814 Sucralfate 1 Gm Tablet, 1 GM PO QIDACHS Prescribed by: WESLEY WARE on 01/07/18 1506 Patient Home Medication List Home Medication List Reviewed: Yes Review of Systems Constitutional: see HPI EENTM: see HPI Respiratory: no symptoms reported Cardiovascular: no symptoms reported Genitourinary: no symptoms reported Musculoskeletal: see HPI Skin: no symptoms reported Psychiatric/Neurological: No Symptoms Reported Past Pqvfvtb-Rgpoja-Kqxzco Hx Patient Social History Alcohol Use: Denies Use Recreational Drug Use: No Smoking Status: Current Everyday Smoker Type Used: Electronic/Vapor 2nd Hand Smoke Exposure: Yes Recent Foreign Travel: No Contact w/Someone Who Travel: No Recent Infectious Disease Expo: No Recent Hopitalizations: No Immunizations Up To Date Tetanus Booster (TDap): Less than 5yrs Seasonal Allergies Seasonal Allergies: No Past Medical History Surgeries: Yes (HERNIA) Abdominal, Section, Tubal Ligation Respiratory: Yes Asthma Cardiac: No Neurological: 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 pylori) Ulcer Musculoskeletal: No Endocrine: No HEENT: No Cancer: No Psychosocial: No Integumentary: No Blood Disorders: No Physical Exam Vital Signs Vital Signs - First Documented 03/23/19 16:22 Temp 37.0 Pulse 72 Resp 18 B/P (MAP) 129/81 (97) Pulse Ox 98 Capillary Refill : Less Than 3 Seconds Height, Weight, BMI Height: 4'9.00" Weight: 205lbs. oz. 92.807642fx; 44.00 BMI Method:Stated General Appearance: WD/WN, no apparent distress Respiratory: no respiratory distress, no accessory muscle use Hips: bilateral hip non-tender, bilateral hip normal inspection, bilateral hip normal range of motion Legs: bilateral leg non-tender, bilateral leg normal inspection, bilateral leg normal range of motion; left leg other (the left calf is soft but the mid posterior left calf is tender to palpation extending inferiorly down to the ankle. There is no swelling, overlying skin wounds. Resisted plantar flexion significantly worsens her pain.) Knees: bilateral knee non-tender, bilateral knee normal inspection, bilateral knee normal range of motion Ankles: bilateral ankle non-tender, bilateral ankle normal inspection, bilateral ankle normal range of motion Feet: bilateral foot non-tender, bilateral foot normal inspection, bilateral foot normal range of motion Neurologic/Psychiatric: alert, normal mood/affect, oriented x 3 Skin: normal color ("I feel), warm/dry Progress/Results/Core Measures Results/Orders Vital Signs/I&O 03/23/19 16:22 Temp 37.0 Pulse 72 Resp 18 B/P (MAP) 129/81 (97) Pulse Ox 98 2 Blood Pressure Mean: 97 Departure Impression Primary Impression: Gastrocnemius muscle strain Qualified Codes: S86.112A - Strain of other muscle(s) and tendon(s) of posterior muscle group at lower leg level, left leg, initial encounter Disposition: HOME, SELF-CARE Condition: Stable Departure-Patient Inst. Decision time for Depature: 16:55 Referrals: [facility] [place] (PCP/Family) Primary Care Physician Patient Instructions: NO INSTRUCTIONS GIVEN Add. Discharge Instructions: 1. Wear the boot as needed for pain control 2. Follow-up with your doctor within one to 2 weeks for recheck. All discharge instructions reviewed with patient and/or family. Voiced understanding. Images Extremities-Lower 1 - Tenderness KIM AYALA APRN Mar 23, 2019 16:55
[2019-03-23 17:02] VITALS: BP 129/81
== END 2019-03-23 17:06 | disposition home or self-care (01) ==
LOC: EDUNIT# 16:07 → ER 16:09
DX: S86.112A Strain of other muscle(s) and tendon(s) of posterior muscle group at lower leg level, left leg, initial encounter (principal); J45.909 Unspecified asthma, uncomplicated; F17.290 Nicotine dependence, other tobacco product, uncomplicated; Z98.51 Tubal ligation status; X58.XXXA Exposure to other specified factors, initial encounter
CPT/HCPCS: 99283

== ENCOUNTER 2019-04-01 14:53 | Emergency (ER) | payer MEDICAID ==
[~2019-04-01] VITALS: Ht 147.3 cm; Wt 93.6 kg
--- NOTE | 2019-04-01 15:49 | ED Lower Extremity ---
General Chief Complaint: Lower Extremity Stated Complaint: R ANKLE PAIN Nursing Triage Note: Pt to [facility] via ED w/c by ED staff with c/o Rt ankle pain. Pt reports approx 3 days ago, discomfort began. Pt reports numbness to Rt foot. When asked to wiggle toes on Rt foot pt states, "I can't, its numb." Denies injury. Pt reports she is unable to bear weight on Rt foot. No swelling or redness noted. Nursing Sepsis Screen: No Definite Risk Source: patient Exam Limitations: no limitations History of Present Illness Date Seen by Provider: Apr 01, 2019 Time Seen by Provider: 15:49 Initial Comments 33-year-old female patient presents to the emergency department with complaints of right ankle pain beginning 3 days ago. Patient denies known injury. Patient states she was sitting in a chair when the pain began. Patient reports "numbness" to the right foot. Patient reports she is unable to bear weight on the right ankle. Patient was seen on March 23, 2019 by Kim Rivera for a left gastrocnemius strain. Patient is not wearing in the boot as instructed due to "the boot making her ankle and foot itch." Location Injury Occurred: denies known injury Onset: other (3 day onset) Pain/Injury Location: right ankle Method of Injury: unknown Modifying Factors: Improves With Immobilization; Worse With Movement, Worse With Other (denies using nhaw-tse-wgzqwja medications for symptoms.) Allergies and Home Medications Allergies Coded Allergies: No Known Drug Allergies (Unverified , 03/10/19) Home Medications Amoxicillin 500 Mg Tablet, 1,000 MG PO BID Prescribed by: JOSÉ MIGUEL SIERRA on 12/13/17 175 Amoxicillin 500 Mg Capsule, 500 MG PO BID Prescribed by: BRITAT PRAKASH on 04/28/18 1625 Cefdinir 300 Mg Capsule, 300 MG PO BID Prescribed by: CINDY YEPEZ on 03/10/19 210 Cefuroxime Axetil 250 Mg Tablet, 250 MG PO BID, (Reported) Clarithromycin 500 Mg Tablet, 500 MG PO BID Prescribed by: JOSÉ MIGUEL SIERRA on 12/13/17 175 Clindamycin HCl 300 Mg Capsule, 300 MG PO TID Prescribed by: KIM RIVERA on 02/05/19 2135 Diclofenac Sodium 75 Mg Tablet.dr, 75 MG PO BID PRN for pain Prescribed by: DAX ROLAND on 11/22/17 1915 Naproxen 500 Mg Tablet, 500 MG PO BID PRN for pain Prescribed by: DAX ROLAND on 04/01/19 170 Omeprazole 20 Mg Capsule.dr, 20 MG PO BID Prescribed by: JOSÉ MIGUEL SIERRA on 12/13/17 1758 Omeprazole 40 Mg Capsule.dr, 40 MG PO DAILY Prescribed by: WESLEY WARE on 01/07/18 1506 Omeprazole 40 Mg Capsule.dr, 40 MG PO DAILY Prescribed by: CINDY YEPEZ on 03/10/19 210 Ondansetron 4 Mg Tab.rapdis, 4 MG SL Q4H PRN for NAUSEA/VOMITING-1ST LINE Prescribed by: JOSÉ MIGUEL SIERRA on 09/24/17 0130 Ondansetron HCl 4 Mg Tab, 4 MG PO Q4H PRN for NAUSEA/VOMITING-1ST LINE Prescribed by: BRITTA PRAKASH on 07/20/18 181 Prednisone 20 Mg Tab, 40 MG PO DAILY Prescribed by: DAX ROLAND on 04/01/19 170 Sucralfate 1 Gm Tablet, 1 GM PO QIDACHS Prescribed by: WESLEY WARE on 01/07/18 1506 Patient Home Medication List Home Medication List Reviewed: Yes Review of Systems Constitutional: no symptoms reported Respiratory: no symptoms reported Cardiovascular: no symptoms reported Musculoskeletal: No back pain; joint pain (right ankle); No joint swelling, No muscle pain, No neck pain Skin: No change in color, No lesions, No lumps, No rash Psychiatric/Neurological: See HPI All Other Systems Reviewed Negative Unless Noted: Yes (Negative excepted noted.) Past Exbwrlb-Maactw-Ntvvqx Hx Past Med/Social Hx: Reviewed Nursing Past Med/Soc Hx Patient Social History Alcohol Use: Denies Use Recreational Drug Use: No Smoking Status: Current Everyday Smoker Type Used: Electronic/Vapor 2nd Hand Smoke Exposure: Yes Recent Foreign Travel: No Contact w/Someone Who Travel: No Recent Infectious Disease Expo: No Recent Hopitalizations: No Immunizations Up To Date Tetanus Booster (TDap): Less than 5yrs Seasonal Allergies Seasonal Allergies: No Past Medical History Surgeries: Yes (HERNIA) Abdominal, Section, Tubal Ligation Respiratory: Yes Asthma Cardiac: No Neurological: No [employer]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 pylori) Ulcer Musculoskeletal: No Endocrine: No HEENT: No Cancer: No Psychosocial: No Integumentary: No Blood Disorders: No Family Medical History Reviewed Nursing Family Hx No Pertinent Family Hx Physical Exam Vital Signs Vital Signs - First Documented 04/01/19 15:15 Temp 36.6 Pulse 87 Resp 18 B/P (MAP) 117/60 (79) Pulse Ox 99 O2 Delivery Room Air Capillary Refill : Less Than 3 Seconds Height, Weight, BMI Height: 4'9.00" Weight: 205lbs. oz. 92.391099uz; 43.00 BMI Method:Stated General Appearance: WD/WN, no apparent distress Cardiovascular: normal peripheral pulses, regular rate, rhythm, no edema, no murmur Respiratory: lungs clear, normal breath sounds, no respiratory distress, no accessory muscle use Hips: right hip non-tender, right hip normal inspection, right hip normal range of motion, right hip no evidence of injury Legs: bilateral leg non-tender, bilateral leg normal inspection, bilateral leg normal range of motion, bilateral leg no evidence of injury Knees: bilateral knee non-tender, bilateral knee normal inspection, bilateral knee normal range of motion, bilateral knee no evidence of injury Ankles: left ankle non-tender; bilateral ankle normal inspection; left ankle normal range of motion; bilateral ankle no evidence of injury; right ankle bone tenderness (lateral malleolus tender), right ankle limited range of motion, right ankle pain, right ankle soft tissue tenderness (inferior to the lateral malleolus) Feet: bilateral foot non-tender, bilateral foot normal inspection, bilateral foot normal range of motion, bilateral foot no evidence of injury Neurologic/Tendon: normal sensation, normal motor functions, normal tendon functions, responds to pain, no evidence tendon injury Neurologic/Psychiatric: no motor/sensory deficits, alert, normal mood/affect, oriented x 3 Skin: normal color, warm/dry; No cyanosis, No cool, No diaphoresis, No ecchymosis, No mottled, No pallor, No rash Progress/Results/Core Measures Results/Orders My Orders Orders - DAX ROLAND Ankle, Right, 3 Views (04/01/19 15:58) Ibuprofen Tablet (Motrin Tablet) (04/01/19 15:58) Ketorolac Injection (Toradol Injection) (04/01/19 15:59) Vital Signs/I&O 04/01/19 15:15 Temp 36.6 Pulse 87 Resp 18 B/P (MAP) 117/60 (79) Pulse Ox 99 O2 Delivery Room Air Blood Pressure Mean: 79 Diagnostic Imaging Diagonstic Imaging: Xray Plain Films/CT/US/NM/MRI: ankle Comments ANKLE, RIGHT, 3 VIEWS CLINICAL INDICATION: Patient with right ankle pain x5 days. No known injury. EXAM: X-ray of the right ankle, three views. COMPARISON: None. FINDINGS: There is no acute fracture or dislocation. There is no significant bone or joint abnormality. Ankle mortise and syndesmotic joints are unremarkable. IMPRESSION: Unremarkable x-ray of the right ankle. Dictated on workstation # [id number] Reviewed: Reviewed by Me (radiology report reviewed by me) Departure Communication (Admissions) Patient seen and evaluated. X-rays of the right ankle obtained which was negative. Diagnostic findings discussed with the patient. 3 inch Kendall wrap applied to the right religious. Plan for discharge to home. Impression Primary Impression: Ankle pain Qualified Codes: M25.571 - Pain in right ankle and joints of right foot Disposition: HOME, SELF-CARE Condition: Improved Departure-Patient Inst. Decision time for Depature: 16:59 Referrals: [facility] (PCP/Family) Primary Care Physician Patient Instructions: Ankle Strengthening Exercises Add. Discharge Instructions: All discharge instructions reviewed with patient and/or family. Voiced understanding. Medications as instructed. Tylenol just strength yacb-tvs-vbizohg as directed for pain. Elevate the right ankle and ice pack for 20 minute intervals as needed for pain. You may use an Kendall wrap to help with pain if needed. If needed, you may buy a pair of crutches oxup-rop-rilnqsz. Follow-up with your family practitioner for recheck as an outpatient if no improvement in symptoms. Return in the emergency department for worsened symptoms or any other concerns. Scripts Naproxen (Naprosyn) 500 Mg Tablet 500 MG PO BID PRN for pain, #20 TAB 0 Refills Prov: DAX ROLAND 04/01/19 Prednisone (Prednisone) 20 Mg Tab 40 MG PO DAILY, #10 TAB 0 Refills Prov: DAX ROLAND 04/01/19 DAX ROLAND Apr 01, 2019 15:49
[2019-04-01] MEDS ORDERED: IBUPROFEN 800 MG (MOTRIN) TAB PO STA (15:58)
[2019-04-01] MEDS ORDERED: KETOROLAC 60 MG/2 ML VIAL IM STA (15:59)
--- NOTE | 2019-04-01 16:33 | Diagnostic Imaging Report ---
CLINICAL INDICATION: Patient with right ankle pain x5 days. No known injury. EXAM: X-ray of the right ankle, three views. COMPARISON: None. FINDINGS: There is no acute fracture or dislocation. There is no significant bone or joint abnormality. Ankle mortise and syndesmotic joints are unremarkable. IMPRESSION: Unremarkable x-ray of the right ankle. Dictated by: Dictated on workstation # [id number]
[2019-04-01] MEDS ORDERED: PRD20T PO (17:03)
[2019-04-01] MEDS ORDERED: NAPR-1071 PO (17:03)
[2019-04-01 17:11] VITALS: BP 136/82
== END 2019-04-01 17:11 | disposition home or self-care (01) ==
LOC: EDUNIT# 14:53 → ER 14:54
DX: M25.571 Pain in right ankle and joints of right foot (principal); J45.909 Unspecified asthma, uncomplicated; F17.290 Nicotine dependence, other tobacco product, uncomplicated; Z98.51 Tubal ligation status
CPT/HCPCS: 73610; 96372

== ENCOUNTER 2019-05-03 23:22 | Emergency (ER) | payer MEDICAID ==
[~2019-05-03] VITALS: Ht 146 cm; Wt 93.6 kg
[~2019-05-03 23:22] MED LIST changes: +NAPR-1071 PO; +OMEP-280 PO; -OMEP20CA13 PO; +OMEP40CA27 PO; -OMEP40CA36 PO; +PRD20T PO
[2019-05-03] MEDS ORDERED: FAMOTIDINE 20 MG (PEPCID) TABLET PO STA (23:45)
[2019-05-03] MEDS ORDERED: LIDOCAINE 2% VISCOUS 15 ML UDC PO ONE (23:45)
[2019-05-03] MEDS ORDERED: ANTACID SUSP 30 ML UDC (MYLANTA) PO ONE (23:45)
--- NOTE | 2019-05-03 23:50 | ED Abdominal Pain ---
General Chief Complaint: Chest Wall Stated Complaint: PRESSURE AT CENTER OF CHEST,POSS YEAST INFECTION Source of Information: Patient Exam Limitations: No Limitations History of Present Illness Date Seen by Provider: May 03, 2019 Time Seen by Provider: 23:18 Initial Comments Patient resents to ER by private conveyance chief complaint of chest pain however she points to her epigastric region. She says a feeling of burning sensation and does not radiate. No history of coronary disease smoking diabetes cholesterol or high blood pressure. She does use a vaporizer. She has no familial history of early-onset coronary disease. The pain has been going on for past 2 days and is not associated with food. It is worse when she lays down. She denies any wheezing cough fevers chills nausea vomiting diarrhea. She has had 2 C-sections and an umbilical hernia repair. Allergies and Home Medications Allergies Coded Allergies: No Known Drug Allergies (Unverified , 03/10/19) Home Medications Amoxicillin 500 Mg Tablet, 1,000 MG PO BID Prescribed by: JOSÉ MIGUEL SIERRA on 12/13/17 175 Amoxicillin 500 Mg Capsule, 500 MG PO BID Prescribed by: BRITTA PRAKASH on 04/28/18 1625 Cefdinir 300 Mg Capsule, 300 MG PO BID Prescribed by: CINDY YEPEZ on 03/10/192103 Cefuroxime Axetil 250 Mg Tablet, 250 MG PO BID, (Reported) Clarithromycin 500 Mg Tablet, 500 MG PO BID Prescribed by: JOSÉ MIGUEL SIERRA on 12/13/17 175 Clindamycin HCl 300 Mg Capsule, 300 MG PO TID Prescribed by: KIM AYALA on 02/05/19 213 Diclofenac Sodium 75 Mg Tablet., 75 MG PO BID PRN for pain Prescribed by: DAX ROLAND on 11/22/17 1915 Naproxen 500 Mg Tablet, 500 MG PO BID PRN for pain Prescribed by: DAX ROLAND on 04/01/19 1703 Omeprazole 20 Mg Capsule., 20 MG PO BID Prescribed by: JOSÉ MIGUEL SIERRA on 12/13/17 175 Omeprazole 40 Mg Capsule., 40 MG PO DAILY Prescribed by: WESLEY WARE on 01/07/18 1506 Omeprazole 40 Mg Capsule., 40 MG PO DAILY Prescribed by: CINDY YEPEZ on 03/10/192103 Ondansetron 4 Mg Tab.rapdis, 4 MG SL Q4H PRN for NAUSEA/VOMITING-1ST LINE Prescribed by: JOSÉ MIGUEL SIERRA on 09/24/17 0130 Ondansetron HCl 4 Mg Tab, 4 MG PO Q4H PRN for NAUSEA/VOMITING-1ST LINE Prescribed by: BRITTA PRAKASH on 07/20/18 1814 Prednisone 20 Mg Tab, 40 MG PO DAILY Prescribed by: DAX ROLAND on 04/01/19 1703 Sucralfate 1 Gm Tablet, 1 GM PO QIDACHS Prescribed by: WESLEY WARE on 01/07/18 1506 Patient Home Medication List Home Medication List Reviewed: Yes Review of Systems Review of Systems Constitutional: No chills, No fever, No malaise EENTM: No Blurred Vision, No Double Vision Respiratory: Denies Cough, Denies Shortness of Air Cardiovascular: See HPI; Denies Irregular Heart Rate, Denies Lightheadedness, Denies Palpitations, Denies Syncope Gastrointestinal: See HPI, Abdominal Pain; Denies Constipated, Denies Diarrhea; Nausea Genitourinary: Burning; Denies Discharge Musculoskeletal: No back pain, No joint pain Skin: No pruritus, No rash Psychiatric/Neurological: Denies Headache, Denies Numbness Past Hiajrld-Wcewky-Tezqys Hx Patient Social History Alcohol Use: Denies Use Recreational Drug Use: No Smoking Status: Former Smoker Type Used: Electronic/Vapor 2nd Hand Smoke Exposure: Yes Recent Foreign Travel: No Contact w/Someone Who Travel: No Recent Hopitalizations: No Immunizations Up To Date Tetanus Booster (TDap): Less than 5yrs Seasonal Allergies Seasonal Allergies: No Past Medical History Surgeries: Yes (HERNIA) Abdominal, Section, Tubal Ligation Respiratory: Yes Asthma Cardiac: No Neurological: No 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 pylori) Ulcer Musculoskeletal: No Endocrine: No HEENT: No Cancer: No Psychosocial: No Integumentary: No Blood Disorders: No Family Medical History No Pertinent Family Hx Physical Exam Vital Signs Capillary Refill : Height/Weight/BMI Height: 4'9.00" Weight: 205lbs. oz. 92.027804tl; 43.00 BMI Method:Stated General Appearance: WD/WN, mild distress HEENT: PERRL/EOMI, pharynx normal Neck: full range of motion, normal inspection Respiratory: chest non-tender, lungs clear, normal breath sounds, no respiratory distress, no accessory muscle use Cardiovascular: normal peripheral pulses, regular rate, rhythm Peripheral Pulses: 2+ Dorsalis Pedis (R), 2+ Left Dors-Pedis (L) Gastrointestinal: normal bowel sounds, soft, tenderness (epigastric region re- creates her pain) Neurologic/Psychiatric: alert, normal mood/affect, oriented x 3 Skin: normal color, warm/dry Progress/Results/Core Measures Results/Orders Lab Results Laboratory Tests Test 05/03/19 22:45 05/03/19 23:36 05/03/19 23:40 Range/Units Serum Test, Qualitative NEGATIVE NEGATIVE White Blood Count 8.9 4.3-11.0 10^3/uL Red Blood Count 4.48 4.35-5.85 10^6/uL Hemoglobin 8.5 L 11.5-16.0 G/DL Hematocrit 28 L 35-52 % Mean Corpuscular Volume 63 L 80-99 FL Mean Corpuscular Hemoglobin 19 L 25-34 PG Mean Corpuscular Hemoglobin Concent 30 L 32-36 G/DL Red Cell Distribution Width 19.1 H 10.0-14.5 % Platelet Count 438 H 130-400 10^3/uL Mean Platelet Volume 11.1 H 7.4-10.4 FL Neutrophils (%) (Auto) 46 42-75 % Lymphocytes (%) (Auto) 39 12-44 % Monocytes (%) (Auto) 9 0-12 % Eosinophils (%) (Auto) 5 0-10 % Basophils (%) (Auto) 1 0-10 % Neutrophils # (Auto) 4.1 1.8-7.8 X 10^3 Lymphocytes # (Auto) 3.5 1.0-4.0 X 10^3 Monocytes # (Auto) 0.8 0.0-1.0 X 10^3 Eosinophils # (Auto) 0.4 H 0.0-0.3 10^3/uL Basophils # (Auto) 0.0 0.0-0.1 10^3/uL Sodium Level 139 135-145 MMOL/L Potassium Level 4.0 3.6-5.0 MMOL/L Chloride Level 106 98-107 MMOL/L Carbon Dioxide Level 22 21-32 MMOL/L Anion Gap 11 5-14 MMOL/L Blood Urea Nitrogen 11 7-18 MG/DL Creatinine 0.70 0.60-1.30 MG/DL Estimat Glomerular Filtration Rate > 60 BUN/Creatinine Ratio 16 Glucose Level 95 70-105 MG/DL Calcium Level 9.2 8.5-10.1 MG/DL Corrected Calcium 9.0 8.5-10.1 MG/DL Total Bilirubin 0.2 0.1-1.0 MG/DL Aspartate Amino Transf (AST/SGOT) 17 5-34 U/L Alanine Aminotransferase (ALT/SGPT) 14 0-55 U/L Alkaline Phosphatase 83 40-136 U/L Troponin I < 0.028 <0.028 NG/ML C-Reactive Protein High Sensitivity 1.08 H 0.00-0.50 MG/DL Total Protein 8.3 H 6.4-8.2 GM/DL Albumin 4.2 3.2-4.5 GM/DL Lipase 25 8-78 U/L Urine Color ELZBIETA H Urine Clarity SLIGHTLY CLOUDY Urine pH 5 5-9 Urine Specific [place] 1.025 H 1.016-1.022 Urine Protein NEGATIVE NEGATIVE Urine Glucose (UA) NEGATIVE NEGATIVE Urine Ketones NEGATIVE NEGATIVE Urine Nitrite NEGATIVE NEGATIVE Urine Bilirubin NEGATIVE NEGATIVE Urine Urobilinogen NORMAL NORMAL MG/DL Urine Leukocyte Esterase 3+ H NEGATIVE Urine RBC (Auto) NEGATIVE NEGATIVE Urine RBC NONE /HPF Urine WBC 5-10 H /HPF Urine Squamous Epithelial Cells 5-10 /HPF Urine Crystals NONE /LPF Urine Bacteria FEW H /HPF Urine Casts NONE /LPF Urine Mucus NEGATIVE /LPF Urine Culture Indicated YES My Orders Orders - WESLEY WARE Continuous Ekg Monitoring (05/03/19 23:29) Ekg Tracing (05/03/19 23:29) Troponin I (05/03/19 23:45) Cbc With Automated Diff (05/03/19 23:45) Comprehensive Metabolic Panel (05/03/19 23:45) Hs C Reactive Protein (05/03/19 23:45) Lidocaine 2% Viscous 15 Ml (Xylocaine Vi (05/03/19 23:45) Famotidine Tablet (Pepcid Tablet) (05/03/19 23:45) Antacid Suspension (Mylanta Suspension (05/03/19 23:45) Lipase (05/03/19 23:46) Ua Culture If Indicated (05/03/19 23:46) Urine Bedside (05/03/19 23:46) Hcg,Qualitative Serum (05/03/19 23:52) Chest 1 View, Ap/Pa Only (05/04/19 00:01) Urine Culture (05/03/19 23:40) Medications Given in ED Current Medications Medications Dose Ordered Sig/Giana Route Start Time Stop Time Status Last Admin Dose Admin Al Hydrox/Mg Hydrox/Simethicone 30 ml ONCE ONCE PO 05/03/19 23:45 05/03/19 23:46 DC 05/04/19 00:04 30 ML Lidocaine HCl 15 ml ONCE ONCE PO 05/03/19 23:45 05/03/19 23:46 DC 05/04/19 00:05 15 ML Progress Progress Note : Time: 01:06 Progress Note Labs and lipase unremarkable. Troponin negative. After 2 days had anything to do with coronary disease we would expect to see an elevation of troponin. EKG unremarkable. Chest x-ray unremarkable. GI cocktail was given. She had minimal relief from GI cocktail. Her labs and workup were unremarkable therefore) Carafate and omeprazole have her follow-up with the clinic and if this helps her symptoms they can talk about maybe getting a scope or testing for H. pylori. If it does not then perhaps an ultrasound of the gallbladder more useful. Patient is in agreement with this plan. Initial ECG Impression Date: May 03, 2019 Initial ECG Impression Time: 23:33 Initial ECG Rate: 65 Initial ECG Rhythm: Normal Sinus Initial ECG Intervals: Normal Initial ECG Impression: Normal Comment No clinically relevant ST elevation or depression. Diagnostic Imaging Diagonstic Imaging: Xray Plain Films/CT/US/NM/MRI: chest (1v) Comments No acute cardiopulmonary processes seen on the one view chest x-ray Reviewed: Reviewed by Me Departure Impression Primary Impression: Epigastric pain Disposition: HOME, SELF-CARE Condition: Stable Departure-Patient Inst. Decision time for Depature: 01:11 Referrals: [facility] (PCP/Family) Primary Care Physician Patient Instructions: Gastritis (DC) Add. Discharge Instructions: Avoid greasy, spicy foods. Start taking omeprazole 20 mg twice daily for the next 2-4 weeks. Start taking the Carafate one tablet 30 minutes prior to meals and at bedtime, 4 times a day for the next 2 weeks. Plan to follow up with your primary care doctor in 2-4 weeks to reassess your symptoms. All discharge instructions reviewed with patient and/or family. Voiced understanding. Scripts Omeprazole (Omeprazole) 20 Mg Capsule. 20 MG PO BID for 30 Days, #60 CAP 0 Refills Prov: WESLEY WARE 05/04/19 Sucralfate (Carafate) 1 Gm Tablet 1 GM PO QIDACHS for 14 Days, #56 TAB 0 Refills Prov: WESLEY WARE 05/04/19 Work/School Note: Work Release Form Date Seen in the Emergency Department: May 04, 2019 Return to Work: May 05, 2019 Restrictions: No Restrictions WESLEY WARE May 03, 2019 23:50 POS
[2019-05-03 23:53] LABS: BASOPHILS % (AUTO) 1 % (0-10); EOSINOPHILS # (AUTO) 0.4 10^3/uL (0.0-0.3); EOSINOPHILS % (AUTO) 5 % (0-10); HEMATOCRIT 28 % (35-52); HEMOGLOBIN 8.5 G/DL (11.5-16.0); LYMPHOCYTES # (AUTO) 3.5 X 10^3 (1.0-4.0); LYMPHOCYTES % (AUTO) 39 % (12-44); MEAN CORPUSCULAR HEMOGLOBIN 19 PG (25-34); MEAN CORPUSCULAR HGB CONC 30 G/DL (32-36); MEAN CORPUSCULAR VOLUME 63 FL (80-99); MEAN PLATELET VOLUME 11.1 FL (7.4-10.4); MONOCYTES # (AUTO) 0.8 X 10^3 (0.0-1.0); MONOCYTES % (AUTO) 9 % (0-12); NEUTROPHILS # (AUTO) 4.1 X 10^3 (1.8-7.8); NEUTROPHILS % (AUTO) 46 % (42-75); PLATELET COUNT 438 10^3/uL (130-400); RED CELL DISTRIBUTION WIDTH 19.1 % (10.0-14.5); WHITE BLOOD COUNT 8.9 10^3/uL (4.3-11.0)
[2019-05-04 00:06] LABS: ALANINE AMINOTRANSFERASE 14 U/L (0-55); ALBUMIN 4.2 GM/DL (3.2-4.5); ALKALINE PHOSPHATASE 83 U/L (40-136); BILIRUBIN,TOTAL 0.2 MG/DL (0.1-1.0); BUN/CREATININE RATIO 16; CALCIUM 9.2 MG/DL (8.5-10.1); CARBON DIOXIDE 22 MMOL/L (21-32); CHLORIDE 106 MMOL/L (98-107); GFR ESTIMATED > 60; GLUCOSE 95 MG/DL (70-105); LIPASE 25 U/L (8-78); SODIUM 139 MMOL/L (135-145); TOTAL PROTEIN 8.3 GM/DL (6.4-8.2)
[2019-05-04 00:41] LABS: BILIRUBIN,URINE NEGATIVE (NEGATIVE); CLARITY,URINE SLIGHTLY CLOUDY; COLOR,URINE AMBER; GLUCOSE, URINE (UA) NEGATIVE (NEGATIVE); KETONES,URINE NEGATIVE (NEGATIVE); LEUKOCYTE ESTERASE ,URINE 3+ (NEGATIVE); NITRITE,URINE NEGATIVE (NEGATIVE); PH,URINE 5 (5-9); PROTEIN,URINE NEGATIVE (NEGATIVE)
[2019-05-04 00:56] LABS: BACTERIA,URINE FEW /HPF
[2019-05-04] MEDS ORDERED: OMEP-280 PO (01:14)
[2019-05-04] MEDS ORDERED: SUCR1TAB36 PO (01:14)
[2019-05-04] MEDS ORDERED: KETOROLAC 30 MG/ML VIAL IVP ONE (01:15)
[2019-05-04 01:34] VITALS: BP 119/71
--- NOTE | 2019-05-04 06:31 | Diagnostic Imaging Report ---
EXAM: CHEST 1 VIEW, AP/PA ONLY INDICATION: Chest pain. COMPARISON: 03/10/2019. FINDINGS: Low lung volumes. Normal heart size and central pulmonary vascularity. No focal pulmonary opacity, pleural effusion or pneumothorax. No acute osseous findings. IMPRESSION: No acute cardiopulmonary findings. Dictated by: Dictated on workstation # [id number]
--- OUTSIDE RECORDS SUMMARY | 2019-05-27 17:42 | XMS REPORT | Continuity of Care Document ---
Author Organization Unknown POS Address Unknown SP Phone Unavailable SP Allergies There is no data. Medications There is no data. Problems There is no data. Procedures There is no data. Results Test Result Range POS PLATELET ESTIMATION - 12/05/17 12:43 POS PLATELET ESTIMATION ADEQUATE ADEQUATE SP CBC MORPHOLOGY - 12/05/17 12:43 POS CBC MORPHOLOGY NORMAL SP CULTURE, GENITAL - 03/24/18 14:22 POS CULTURE, GENITAL SEE NOTE NRG SP SUREPATH PAP AND HPV mRNA E6/E7 - 14:22 POS CLINICAL INFORMATION: NRG SP LMP: 03/21/18 NRG SP PREV. PAP: UNKNOWN NRG SP PREV. BX: N/A NRG SP SOURCE: Cervix NRG SP STATEMENT OF ADEQUACY: NRG SP INTERPRETATION/RESULT: NRG SP HAND RIGGER: NRG SP HPV mRNA E6/E7, SUREPATH VIAL Not Detected NOT DETECTED SP GENERAL CATEGORIZATION: NRG SP COMMENT: NRG SP PATHOLOGIST: NRG SP COMMENT NRG SP Encounters ACCT No. Visit Date/Time Discharge Status POS Pt. Type Provider Facility Loc./Un it POS Complaint POS [id number] 02/22/2019 16:50:00 02/22/2019 23:59: 59 CLS SP Out[facility] SP [id number] 03/24/2018 10:20:00 Document SPRegistration SP [id number] 12/05/2017 11:40:00 Document SPRegistration SP
== END 2019-05-04 01:36 | disposition home or self-care (01) ==
LOC: EDUNIT# 23:22 → ER 23:25
DX: R10.13 Epigastric pain (principal); J45.909 Unspecified asthma, uncomplicated; Z87.891 Personal history of nicotine dependence; Z98.51 Tubal ligation status; Z98.890 Other specified postprocedural states
CPT/HCPCS: 36415; 71045; 80053; 81000; 83690; 84484; 84703; 85025; 86141; 87088; 93005; 96374

== ENCOUNTER 2019-06-04 17:32 | Emergency (ER) | payer MEDICAID ==
[~2019-06-04] VITALS: Ht 147.3 cm; Wt 93.2 kg
[~2019-06-04 17:32] MED LIST changes: -OMEP-280 PO; +OMEP20CA13 PO; -OMEP40CA27 PO; +OMEP40CA36 PO
--- NOTE | 2019-06-04 18:47 | NUR ---
Patient ambulatory to FT1. Patient awake and alert x 4. She states she has been sick with sore throat, fever, chills, cough and congestion since May 31. Patient states today she began having blood in her sputum when she coughs.
--- NOTE | 2019-06-04 19:15 | ED Cough/URI ---
General Chief Complaint: Cough/Cold/Flu Symptoms Stated Complaint: SORE THORAT,BODY ACHES, DIZZINESS Nursing Triage Note: Pt amb to triage with c/o cough, congestion, fever, chills, and sore throat. Pt reports onset of symptoms to be 05/31/19. Pt reports blood tinged sputum. Pt currently afebrile. Sepsis Screen: Possible Severe Sepsis Risk Source: patient Exam Limitations: no limitations History of Present Illness Date Seen by Provider: Jun 04, 2019 Time Seen by Provider: 18:45 Initial Comments Cisz of 34-year-old -[place] female that presents to the emergency department with a cough and nasal congestion and a sore throats that started on Thanksgiving. Patient reports that the only medication that she has been taking for this has been Tylenol. Timing/Duration: week Severity/Quality: mild, dry cough, blood streaked sputum Prior Episodes/Possible Cause: occasional episodes Modifying Factors: Worse With Activity, Worse With Coughing; Improves With Lyi ng Down Associated Symptoms: denies symptoms, nasal congestion, sore throat Allergies and Home Medications Allergies Coded Allergies: No Known Drug Allergies (Unverified , 03/10/19) Home Medications Amoxicillin 500 Mg Tablet, 1,000 MG PO BID Prescribed by: JOSÉ MIGUEL SIERRA on 12/13/17 175 Amoxicillin 500 Mg Capsule, 500 MG PO BID Prescribed by: BRITTA PRAKASH on 04/28/18 1625 Cefdinir 300 Mg Capsule, 300 MG PO BID Prescribed by: CINDY YEPEZ on 03/10/192103 Cefuroxime Axetil 250 Mg Tablet, 250 MG PO BID, (Reported) Clarithromycin 500 Mg Tablet, 500 MG PO BID Prescribed by: JOSÉ MIGUEL SIERRA on 12/13/17 175 Clindamycin HCl 300 Mg Capsule, 300 MG PO TID Prescribed by: KIM AYALA on 02/05/19 2135 Diclofenac Sodium 75 Mg Tablet., 75 MG PO BID PRN for pain Prescribed by: DAX ROLAND on 11/22/17 1915 Naproxen 500 Mg Tablet, 500 MG PO BID PRN for pain Prescribed by: DAX ROLAND on 04/01/19 1703 Omeprazole 20 Mg Capsule., 20 MG PO BID Prescribed by: JOSÉ MIGUEL SIERRA on 12/13/17 1758 Omeprazole 40 Mg Capsule.dr, 40 MG PO DAILY Prescribed by: WESLEY WARE on 01/07/18 1506 Omeprazole 40 Mg Capsule., 40 MG PO DAILY Prescribed by: CINDY YEPEZ on 03/10/192103 Omeprazole 20 Mg Capsule.dr, 20 MG PO BID Prescribed by: WESLEY WARE on 05/04/19 0114 Ondansetron 4 Mg Tab.rapdis, 4 MG SL Q4H PRN for NAUSEA/VOMITING-1ST LINE Prescribed by: JOSÉ MIGUEL SIERRA on 09/24/17 0130 Ondansetron HCl 4 Mg Tab, 4 MG PO Q4H PRN for NAUSEA/VOMITING-1ST LINE Prescribed by: BRITTA PRAKASH on 07/20/18 181 Prednisone 20 Mg Tab, 40 MG PO DAILY Prescribed by: DAX ROLAND on 04/01/19 1703 Sucralfate 1 Gm Tablet, 1 GM PO QIDACHS Prescribed by: WESLEY WARE on 01/07/18 1506 Sucralfate 1 Gm Tablet, 1 GM PO QIDACHS Prescribed by: WESLEY WARE on 05/04/19 0114 Patient Home Medication List Home Medication List Reviewed: Yes Review of Systems Review of Systems Constitutional: see HPI EENTM: see HPI, nose congestion, throat pain Respiratory: see HPI, cough, hemoptysis Cardiovascular: see HPI Gastrointestinal: no symptoms reported, see HPI Genitourinary: no symptoms reported, see HPI Musculoskeletal: no symptoms reported, see HPI Skin: no symptoms reported, see HPI Hematologic/Lymphatic: No Symptoms Reported, See HPI Immunological/Allergic: no symptoms reported All Other Systems Reviewed Negative Unless Noted: Yes Past Fqrxxmy-Dbtccs-Fivozb Hx Past Med/Social Hx: Reviewed Nursing Past Med/Soc Hx Patient Social History Alcohol Use: Denies Use Recreational Drug Use: No Smoking Status: Current Everyday Smoker Type Used: Electronic/Vapor, Smokeless Tobacco 2nd Hand Smoke Exposure: Yes Recent Foreign Travel: No Contact w/Someone Who Travel: No Recent Infectious Disease Expo: No Recent Hopitalizations: No Immunizations Up To Date Tetanus Booster (TDap): Less than 5yrs Seasonal Allergies Seasonal Allergies: No Past Medical History Surgeries: Yes (HERNIA) Abdominal, Section, Tubal Ligation Respiratory: Yes Asthma Cardiac: No Neurological: No 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 pylori) Ulcer Musculoskeletal: No Endocrine: No HEENT: No Cancer: No Psychosocial: No Integumentary: No Blood Disorders: No Family Medical History No Pertinent Family Hx Physical Exam Vital Signs - First Documented 06/04/19 18:15 Temp 37.1 Pulse 95 Resp 18 B/P (MAP) 119/81 (94) Pulse Ox 100 O2 Delivery Room Air Capillary Refill : Less Than 3 Seconds Height: 4'9.00" Weight: 205lbs. oz. 92.578085cv; 42.00 BMI Method:Stated General Appearance: WD/WN, no apparent distress Eyes: Bilateral Eye Normal Inspection, Bilateral Eye PERRL HEENT: PERRL/EOMI, normal ENT inspection, TMs normal, pharynx normal, other (no sinus tenderness.) Neck: non-tender, full range of motion, supple Respiratory: chest non-tender, lungs clear, normal breath sounds, no resp iratory distress, no accessory muscle use Cardiovascular: normal peripheral pulses, regular rate, rhythm, no edema, no gallop, no JVD, no murmur Gastrointestinal: normal bowel sounds, non tender, soft, no organomegaly, no pulsatile mass Extremities: normal range of motion, non-tender, normal inspection, no pedal edema, no calf tenderness Neurologic/Psychiatric: biscuit packer II-XII nml as tested, no motor/sensory deficits, alert, normal mood/affect, oriented x 3 Skin: normal color, warm/dry Lymphatic: no adenopathy Progress/Results/Core Measures Suspected Sepsis Recent Fever Within 48 Hours: Yes Infection Criteria Present: Suspected New Infection New/Unexplained Altered Menta: No Sepsis Screen: Possible Severe Sepsis Risk SIRS Temperature: Pulse: 95 Respiratory Rate: 18 Blood Pressure 119 /81 Mean: 94 Results/Orders Vital Signs/I&O 06/04/19 06/04/19 18:15 19:26 Temp 37.1 37.1 Pulse 95 95 Resp 18 18 B/P (MAP) 119/81 (94) 119/81 (94) Pulse Ox 100 100 O2 Delivery Room Air Capillary Refill : Less Than 3 Seconds Blood Pressure Mean: 94 POS Progress Note : Time: 18:45 Progress Note Patient seen and evaluated, recommended qrbp-fgs-mzmqsfb medications. The patient became upset with the discharge nurse stating that she is unable to pay for whsp-rcp-dnkehpm medications and requesting prescriptions so her Medicaid would pay for them. Explained to the patient is no indication for prescription medications at this time. She became verbally outraged and stated she had to walk 1 mile to come here and now walk mile home, with no treatment provided. Further stated to the patient there was no indication for antibiotics or any other Rx at this time. Departure Impression Primary Impression: Post-nasal drip Additional Impression: Upper respiratory infection, viral Disposition: 01 HOME, SELF-CARE Condition: Stable Departure-Patient Inst. Decision time for Depature: 19:00 Referrals: [facility] (PCP/Family) Primary Care Physician Patient Instructions: Cough, Adult (DC), Cough, Runny Nose, and the Common Cold Add. Discharge Instructions: Increase your water intake For aches and pains you may take Tylenol 650 mg and ibuprofen 600 mg you can alternate these every 4 hours For your cough you can get Robitussin tsmq-hun-kgjggea and take as directed Also get Afrin nasal spray and use it as directed but only for 3 days and then discard it You could also take cetirizine 10 mg daily You can apply Vicks T her chest and your feet at night to help open up your sinus airways. All discharge instructions reviewed with patient and/or family. Voiced understanding. SHANI CAMARGO Jun 04, 2019 19:15 POS
--- NOTE | 2019-06-04 19:23 | NUR ---
RN went to FT1 to give patient discharge paperwork. After discussing discharge plan with patient, patient became upset and states "I don't have any money to buy over the counter medications. I need prescriptions so my insurance will pay for the prescriptions." Cheli Fowler NP notified and came in room to speak with the patient. Patient states "You do this all the time. You never give me any prescriptions and then I have to come back in two weeks because I am not any better. I should have just went to another hospital."The patient then got up and walked out of the room, refusing the discharge paperwork and refused to sign paperwork.
[2019-06-04 19:26] VITALS: BP 119/81
--- OUTSIDE RECORDS SUMMARY | 2019-06-29 21:09 | XMS REPORT | Continuity of Care Document ---
[...] PAP AND HPV mRNA E6/E7 - 14:22 CLINICAL INFORMATION: NRG LMP: 03/21/18 NRG PREV. PAP: UNKNOWN NRG PREV. BX: N/A NRG SOURCE: Cervix NRG STATEMENT OF ADEQUACY: NRG INTERPRETATION/RESULT: NRG RADIATION ENGINEER: NRG HPV mRNA E6/E7, SUREPATH VIAL Not Detected NOT DETECTED GENERAL CATEGORIZATION: NRG COMMENT: NRG PATHOLOGIST: NRG COMMENT NRG Encounters ACCT No. Visit Date/Time Discharge Status Pt. Type Provider Facility Loc./Unit Complaint [id number] 02/22/2019 16:50:00 02/22/2019 23:59: 59 CLS Outpatient ZAID LANGE [facility] [id number] 03/24/2018 10:20:00 Document Registration [id number] 12/05/2017 11:40:00 Document Registration
== END 2019-06-04 19:28 | disposition home or self-care (01) ==
LOC: EDUNIT# 17:32 → ER 17:33
DX: J06.9 Acute upper respiratory infection, unspecified (principal); R09.82 Postnasal drip; J45.909 Unspecified asthma, uncomplicated; F17.290 Nicotine dependence, other tobacco product, uncomplicated; Z98.51 Tubal ligation status
CPT/HCPCS: 99281

== ENCOUNTER 2019-09-11 20:44 | Emergency (ER) | payer MEDICAID ==
[~2019-09-11] VITALS: Ht 146 cm; Wt 98.8 kg
[~2019-09-11 20:44] MED LIST changes: -CLAR-19 PO; +CLAR-31 PO; -OMEP20CA13 PO; +OMEP20CA18 PO; +OMEP40CA27 PO; -OMEP40CA36 PO
--- NOTE | 2019-09-11 21:10 | ED GI ---
General Stated Complaint: PAIN IN BOTH SIDES Source of Information: Patient Exam Limitations: No Limitations History of Present Illness Date Seen by Provider: Sep 11, 2019 Time Seen by Provider: 21:08 Initial Comments To ER with reports of pain in both flanks and suprapubic region for about 3 weeks, no known cause of this. She did have a large clot of blood, a single clot about 2 weeks ago. She then had a recurrence of her bleeding about 2 days ago. She denies fevers or chills or other vaginal discharge. Timing/Duration: 1-2 Days Severity/Quality: Moderate Location: Generalized Abdomen Radiation: No Radiation Activities at Onset: None Allergies and Home Medications Allergies Coded Allergies: No Known Drug Allergies (Unverified , 03/10/19) Home Medications Amoxicillin 500 Mg Tablet, 1,000 MG PO BID Prescribed by: JOSÉ MIGUEL SIERRA on 12/13/171757 Amoxicillin 500 Mg Capsule, 500 MG PO BID Prescribed by: BRITTA PRAKASH on 04/28/18 1625 Cefdinir 300 Mg Capsule, 300 MG PO BID Prescribed by: CINDY YEPEZ on 03/10/192103 Cefuroxime Axetil 250 Mg Tablet, 250 MG PO BID, (Reported) Clarithromycin 500 Mg Tablet, 500 MG PO BID Prescribed by: JOSÉ MIGUEL SIERRA on 12/13/17 175 Clindamycin HCl 300 Mg Capsule, 300 MG PO TID Prescribed by: KIM AYALA on 02/05/19 213 Diclofenac Sodium 75 Mg Tablet., 75 MG PO BID PRN for pain Prescribed by: DAX ROLAND on 11/22/17 1915 Ferrous Sulfate 325 Mg Tablet, 975 MG PO every other day Prescribed by: KIM AYALA on 09/11/19 2237 Naproxen 500 Mg Tablet, 500 MG PO BID PRN for pain Prescribed by: DAX ROLAND on 04/01/19 1703 Omeprazole 20 Mg Capsule., 20 MG PO BID Prescribed by: JOSÉ MIGUEL SIERRA on 12/13/17 175 Omeprazole 40 Mg Capsule., 40 MG PO DAILY Prescribed by: WESLEY WARE on 01/07/18 1506 Omeprazole 40 Mg Capsule., 40 MG PO DAILY Prescribed by: CINDY YEPEZ on 03/10/192103 Omeprazole 20 Mg Capsule.dr, 20 MG PO BID Prescribed by: WESLEY WARE on 05/04/19 011 Ondansetron 4 Mg Tab.rapdis, 4 MG SL Q4H PRN for NAUSEA/VOMITING-1ST LINE Prescribed by: JOSÉ MIGUEL SIERRA on 09/24/17 0130 Ondansetron HCl 4 Mg Tab, 4 MG PO Q4H PRN for NAUSEA/VOMITING-1ST LINE Prescribed by: BRITTA PRAKASH on 07/20/18 1814 Prednisone 20 Mg Tab, 40 MG PO DAILY Prescribed by: DAX ROLAND on 04/01/19 1703 Sucralfate 1 Gm Tablet, 1 GM PO QIDACHS Prescribed by: WESLEY WARE on 01/07/18 1506 Sucralfate 1 Gm Tablet, 1 GM PO QIDACHS Prescribed by: WESLEY WARE on 05/04/19 011 Patient Home Medication List Home Medication List Reviewed: Yes Review of Systems Review of Systems Constitutional: see HPI EENTM: No Symptoms Reported Respiratory: No Symptoms Reported Cardiovascular: No Symptoms Reported Gastrointestinal: See HPI, Abdominal Pain Genitourinary: No Symptoms Reported Musculoskeletal: no symptoms reported Skin: no symptoms reported Psychiatric/Neurological: No Symptoms Reported Endocrine: No Symptoms Reported Hematologic/Lymphatic: No Symptoms Reported Past Seftzpo-Pwyfcy-Qcnihz Hx Patient Social History Type Used: Electronic/Vapor, Smokeless Tobacco 2nd Hand Smoke Exposure: Yes Recent Foreign Travel: No Contact w/Someone Who Travel: No Recent Hopitalizations: No Immunizations Up To Date Tetanus Booster (TDap): Less than 5yrs Seasonal Allergies Seasonal Allergies: No Past Medical History Surgeries: Yes (HERNIA) Abdominal, Section, Tubal Ligation Respiratory: Yes Asthma Cardiac: No Neurological: 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 pylori) Ulcer Musculoskeletal: No Endocrine: No HEENT: No Cancer: No Psychosocial: No Integumentary: No Blood Disorders: No Family Medical History No Pertinent Family Hx Physical Exam Vital Signs Vital Signs - First Documented 09/11/19 20:57 Temp 36.7 Pulse 78 Resp 18 B/P (MAP) 133/86 (102) O2 Delivery Room Air Capillary Refill : Height/Weight/BMI Height: 4'9.00" Weight: 205lbs. oz. 92.554994qn; 42.00 BMI Method:Stated General Appearance: WD/WN, no apparent distress HEENT: PERRL/EOMI, normal ENT inspection Respiratory: no respiratory distress, no accessory muscle use Gastrointestinal: normal bowel sounds, soft Neurologic/Psychiatric: alert, normal mood/affect, oriented x 3 Skin: normal color, warm/dry Progress/Results/Core Measures Results/Orders Lab Results Laboratory Tests Test 09/11/19 21:03 09/11/19 21:07 09/11/19 21:38 Range/Units Urine Color YELLOW Urine Clarity SL CLOUDY Urine pH 6.5 5-9 Urine Specific [place] >=1.030 1.016-1.022 Urine Protein TRACE H NEGATIVE Urine Glucose (UA) NEGATIVE NEGATIVE Urine Ketones NEGATIVE NEGATIVE Urine Nitrite NEGATIVE NEGATIVE Urine Bilirubin NEGATIVE NEGATIVE Urine Urobilinogen 2.0 < = 1.0 MG/DL Urine Leukocyte Esterase NEGATIVE NEGATIVE Urine RBC (Auto) 3+ H NEGATIVE Urine RBC >100 H /HPF Urine WBC 25-50 H /HPF Urine Crystals NONE /LPF Urine Bacteria MODERATE H /HPF Urine Casts NONE /LPF Urine Mucus NEGATIVE /LPF Urine Culture Indicated YES White Blood Count 10.6 4.3-11.0 10^3/uL Red Blood Count 4.09 L 4.35-5.85 10^6/uL Hemoglobin 7.6 L 11.5-16.0 G/DL Hematocrit 26 L 35-52 % Mean Corpuscular Volume 64 L 80-99 FL Mean Corpuscular Hemoglobin 19 L 25-34 PG Mean Corpuscular Hemoglobin Concent 29 L 32-36 G/DL Red Cell Distribution Width 19.4 H 10.0-14.5 % Platelet Count 538 H 130-400 10^3/uL Mean Platelet Volume 11.1 H 7.4-10.4 FL Neutrophils (%) (Auto) 66 42-75 % Lymphocytes (%) (Auto) 25 12-44 % Monocytes (%) (Auto) 8 0-12 % Eosinophils (%) (Auto) 2 0-10 % Basophils (%) (Auto) 0 0-10 % Neutrophils # (Auto) 7.0 1.8-7.8 X 10^3 Lymphocytes # (Auto) 2.6 1.0-4.0 X 10^3 Monocytes # (Auto) 0.8 0.0-1.0 X 10^3 Eosinophils # (Auto) 0.2 0.0-0.3 10^3/uL Basophils # (Auto) 0.0 0.0-0.1 10^3/uL Sodium Level 140 135-145 MMOL/L Potassium Level 3.3 L 3.6-5.0 MMOL/L Chloride Level 106 98-107 MMOL/L Carbon Dioxide Level 21 21-32 MMOL/L Anion Gap 13 5-14 MMOL/L Blood Urea Nitrogen 10 7-18 MG/DL Creatinine 0.77 0.60-1.30 MG/DL Estimat Glomerular Filtration Rate > 60 BUN/Creatinine Ratio 13 Glucose Level 75 70-105 MG/DL Calcium Level 8.8 8.5-10.1 MG/DL Corrected Calcium 8.7 8.5-10.1 MG/DL Total Bilirubin 0.2 0.1-1.0 MG/DL Aspartate Amino Transf (AST/SGOT) 19 5-34 U/L Alanine Aminotransferase (ALT/SGPT) 12 0-55 U/L Alkaline Phosphatase 71 40-136 U/L Total Protein 8.1 6.4-8.2 GM/DL Albumin 4.1 3.2-4.5 GM/DL Lipase 24 8-78 U/L Serum Test, Qualitative NEGATIVE NEGATIVE My Orders Orders - KIM AYALA APRN Cbc With Automated Diff (09/11/19 20:49) Comprehensive Metabolic Panel (09/11/19 20:49) Lipase (09/11/19 20:49) Ua Culture If Indicated (09/11/19 20:49) Hcg,Qualitative Serum (09/11/19 20:49) Wet Prep (09/11/19 21:19) Neisseria Gonorrhea Swab (09/11/19 21:19) Genital Culture (09/11/19 21:19) Chlamydia Trachomatis Swab (09/11/19 21:19) Iron Tibc %Sat & Ferritin (09/11/19 22:05) Ferrous Sulfate Tablet (Feosol Tablet) (09/11/19 22:15) Ondansetron Oral Dissolve Tab (Zofran (09/11/19 22:15) Urine Culture (09/11/19 21:03) Ketorolac Injection (Toradol Injection) (09/11/19 22:45) Medications Given in ED Current Medications Medications Dose Ordered Sig/Giana Route Start Time Stop Time Status Last Admin Dose Admin Ketorolac Tromethamine 60 mg ONCE ONCE IM 09/11/19 22:45 09/11/19 22:46 DC 09/11/19 22:44 60 MG Ondansetron HCl 4 mg ONCE ONCE PO 09/11/19 22:15 09/11/19 22:16 DC 09/11/19 22:43 4 MG Vital Signs/I&O 09/11/19 20:57 Temp 36.7 Pulse 78 Resp 18 B/P (MAP) 133/86 (102) O2 Delivery Room Air Departure Communication (Admissions) All started on iron supplementation, she needs follow-up pelvic ultrasound to e valuate for uterine fibroids, she also needs to follow up with primary care for repeat CBC in a couple of weeks, sooner if she becomes symptomatic. Currently she is not lightheaded short of breath dizzy or symptomatic.. She did self swabbing to collect the wet prep and gonorrhea chlamydia swabs Impression Primary Impression: Microcytic hypochromic anemia Additional Impression: Pelvic pain Disposition: 01 HOME, SELF-CARE Condition: Stable Departure-Patient Inst. Decision time for Depature: 22:12 Referrals: [facility] (PCP/Family) Primary Care Physician Patient Instructions: Acute Pelvic Pain, Anemia Caused by Low Iron Add. Discharge Instructions: 1. Follow-up with [facility] to repeat blood work in a week or 2. Antibiotics as directed for the UTI. Return to ER for any worsening. Scripts Cefuroxime Axetil (Cefuroxime) 250 Mg Tablet 250 MG PO BID, #10 TAB Prov: KIM AYALA WORKGROUP LEADER 09/11/19 Ferrous Sulfate (Ferrous Sulfate) 325 Mg Tablet 975 MG PO every other day, #30 TAB Prov: KIM AYALA WORKGROUP LEADER 09/11/19 KIM AYALA WORKGROUP LEADER Sep 11, 2019 21:10
[2019-09-11 21:59] LABS: BASOPHILS % (AUTO) 0 % (0-10); EOSINOPHILS # (AUTO) 0.2 10^3/uL (0.0-0.3); EOSINOPHILS % (AUTO) 2 % (0-10); HEMATOCRIT 26 % (35-52); HEMOGLOBIN 7.6 G/DL (11.5-16.0); LYMPHOCYTES # (AUTO) 2.6 X 10^3 (1.0-4.0); LYMPHOCYTES % (AUTO) 25 % (12-44); MEAN CORPUSCULAR HEMOGLOBIN 19 PG (25-34); MEAN CORPUSCULAR HGB CONC 29 G/DL (32-36); MEAN CORPUSCULAR VOLUME 64 FL (80-99); MEAN PLATELET VOLUME 11.1 FL (7.4-10.4); MONOCYTES # (AUTO) 0.8 X 10^3 (0.0-1.0); MONOCYTES % (AUTO) 8 % (0-12); NEUTROPHILS % (AUTO) 66 % (42-75); PLATELET COUNT 538 10^3/uL (130-400); RED CELL DISTRIBUTION WIDTH 19.4 % (10.0-14.5); WHITE BLOOD COUNT 10.6 10^3/uL (4.3-11.0)
[2019-09-11 22:01] LABS: BILIRUBIN,URINE NEGATIVE (NEGATIVE); CLARITY,URINE SL CLOUDY; COLOR,URINE YELLOW; GLUCOSE, URINE (UA) NEGATIVE (NEGATIVE); KETONES,URINE NEGATIVE (NEGATIVE); LEUKOCYTE ESTERASE ,URINE NEGATIVE (NEGATIVE); NITRITE,URINE NEGATIVE (NEGATIVE); PH,URINE 6.5 (5-9); PROTEIN,URINE TRACE (NEGATIVE)
[2019-09-11 22:11] LABS: ALANINE AMINOTRANSFERASE 12 U/L (0-55); ALBUMIN 4.1 GM/DL (3.2-4.5); ALKALINE PHOSPHATASE 71 U/L (40-136); BILIRUBIN,TOTAL 0.2 MG/DL (0.1-1.0); BUN/CREATININE RATIO 13; CALCIUM 8.8 MG/DL (8.5-10.1); CARBON DIOXIDE 21 MMOL/L (21-32); CHLORIDE 106 MMOL/L (98-107); CREATININE SERUM 0.77 MG/DL (0.60-1.30); GFR ESTIMATED > 60; GLUCOSE 75 MG/DL (70-105); LIPASE 24 U/L (8-78); POTASSIUM 3.3 MMOL/L (3.6-5.0); SODIUM 140 MMOL/L (135-145); TOTAL PROTEIN 8.1 GM/DL (6.4-8.2)
[2019-09-11 22:12] LABS: BACTERIA,URINE MODERATE /HPF; RBC,URINE >100 /HPF; WBC,URINE 25-50 /HPF
[2019-09-11] MEDS ORDERED: ONDANSETRON 4 MG (ZOFRAN) ORAL DISSOLVE TAB PO ONE (22:15)
[2019-09-11] MEDS ORDERED: FERROUS SULF 325 MG (IRON) TAB PO SCH (22:15)
[2019-09-11] MEDS ORDERED: FERR325T18 PO (22:37)
[2019-09-11] MEDS ORDERED: KETOROLAC 60 MG/2 ML VIAL IM ONE (22:45)
[2019-09-11] MEDS ORDERED: CEFU250T80 PO (22:52)
[2019-09-11 23:04] VITALS: BP 130/85
--- OUTSIDE RECORDS SUMMARY | 2019-09-13 23:23 | XMS REPORT ---
Author Author Tiffany LANGE Organization [facility] Address [address] [place] [address] Care Team Providers Care Textiles Sales Representative Name Role Phone NAZARIO ZAID Unavailable PROBLEMS Type Condition ICD9-CM Code [id number] Code Onset Dates Condition S tatus SNOMED Code Problem History of gallstones Z87.19 Active 277801492 Problem Gastroesophageal reflux disease, esophagitis pre sence not specified K21.9 Active 609594091 Problem Chronic idiopathic constipation K59.04 Active 51837766 Problem History of ovarian cyst Z87.42 Active 067003323 Problem Ventral hernia without obstruction or gangrene K43 .9 Active 807222907 Problem Acute right-sided low back pain with right-sided sciatica M54.41 Active 146513035 Problem Reflux gastritis K29.60 Active 729 54137 ALLERGIES No Information ENCOUNTERS Encounter Location Date Diagnosis [facility] [address] [address] Jun, [facility] [address] [address] May, Bronchitis J40 [facility] [address] [address] Feb, Bilateral impacted cerumen H 61.23 [facility] [address] [address] Feb, H. pylori infection A04.8 ; Morbid obesi ty E66.01 ; Injury of finger of right hand, subsequent encounter S69.91XD and Chronic idiopathic constipation K59.04 [facility] [address] [address] Feb, [facility] [address] [place] [address] Feb, [facility] [address] [place] [id number] [place] [phone] Jan, Dizziness R42 and Dysfunctio n of right eustachian tube H69.81 [facility] [address] [place] [id number] [place] [phone] Jan, Acute bilateral thoracic ady k pain M54.6 and Gastroesophageal reflux disease, esophagitis presence not specified K21.9 [place] [address] [address] Dec, [facility] [address] [address] November, [place] [address] [address] [place] [id number] [place] [phone] Oct, [facility] [address] [address] Oct, Morbid obesity E66.01 [facility] [address] [place] [id number] [place] [address] Sep, Abrasion T14.8XXA ; Morbid o besity E66.01 ; Possible Z32.00 and Acute pain of right knee M25.561 [facility] [address] [place] [id number] [place] [phone] Sep, [facility] [address] [place] [id number] [place] [phone] Aug, [facility] [address] [place] [id number] [place] [phone] Aug, [facility] [address] [place] [id number] [place] [phone] Jul, [facility] [address] [place] [id number] [place] [phone] Jul, [facility] [address] [address] Jun, [place] [address] [address] May, Reflux gastritis K29.60 and Epigastric p ain R10.13 [facility] [place] [address] [address] May, [facility] [address] [address] May, [facility] [address] [place] [address] May, Acute pain of right shoulder M25.511 [facility] [address] [address] May, [facility] [address] [address] May, BMI 40.0-44.9, adult Z68.41 and Acute right-sided low back pain with right-sided sciatica M54.41 [place] [address] [address] Apr, [place] [address] [address] Mar, [address] [address] Mar, BMI 40.0-44.9, adult Z68.41 ; Well woman exam with routine gynecological exam Z01.419 ; Screening for STD (sexually transmitted disease) Z11.3 ; Nausea R11.0 and Morbid obesity E66.01 [facility] [address] [place] [address] 10 Mar, 2018 BMI 40.0-44.9, adult Z68.41 ; Stomach pain R10.9 and Viral gastroenteritis A08.4 [facility] [address] [place] [address] Jan, [facility] [address] [id number] [place] [address] Dec, [facility] [address] [id number] [place] [address] Dec, [facility] [address] [id number] [place] [address] Dec, Epigastric pain R10.13 ; Acute pain of r ight knee M25.561 ; Right wrist pain M25.531 ; Encounter to establish care Z76.89 and BMI 40.0-44.9, adult Z68.41 [facility] [address] [facility] [id number] [address] [place] [phone] November, BMI 40.0-44.9, adult Z68.41 IMMUNIZATIONS No Known Immunizations SOCIAL HISTORY Never Assessed REASON FOR VISIT Need Glasses? PLAN OF CARE VITAL SIGNS MEDICATIONS Unknown Medications RESULTS No Results PROCEDURES No Known procedures INSTRUCTIONS MEDICATIONS ADMINISTERED No Known Medications MEDICAL (GENERAL) HISTORY Type Description Date Medical History asthma Surgical History section x 4 Surgical History umbilical hernia repair Hospitalization History past surgeries
--- OUTSIDE RECORDS SUMMARY | 2019-09-13 23:23 | XMS REPORT | Continuity of Care Document ---
[...] NRG STATEMENT OF ADEQUACY: NRG INTERPRETATION/RESULT: NRG TRUCKING CONTRACTOR: NRG HPV mRNA E6/E7, SUREPATH VIAL Not Detected NOT DETECTED GENERAL CATEGORIZATION: NRG COMMENT: NRG PATHOLOGIST: NRG COMMENT NRG CULTURE, URINE - 07/26/19 16:27 CULTURE, URINE, ROUTINE SEE NOTE NRG Encounters ACCT No. Visit Date/Time Discharge Status Pt. Type Provider Facility Loc./Unit Complaint [id number] 09/13/2019 14:40:00 ACT [facility] [id number] 07/26/2019 14:45:00 Document Registration [id number] 03/24/2018 10:20:00 Document Registration [id number] 12/05/2017 11:40:00 Document Registration
== END 2019-09-11 23:05 | disposition home or self-care (01) ==
LOC: EDUNIT# 20:44 → ER 20:45
DX: D50.9 Iron deficiency anemia, unspecified (principal); R10.2 Pelvic and perineal pain; J45.909 Unspecified asthma, uncomplicated; Z77.22 Contact with and (suspected) exposure to environmental tobacco smoke (acute) (chronic); Z79.52 Long term (current) use of systemic steroids
CPT/HCPCS: 36415; 80053; 81000; 82728; 83540; 83690; 84703; 85025; 87070; 87077; 87088; 87205; 87210; 87491; 87591

== ENCOUNTER 2019-11-07 14:39 | Emergency (ER) | payer MEDICAID ==
[~2019-11-07] VITALS: Ht 149.9 cm; Wt 93.0 kg
[~2019-11-07 14:39] MED LIST changes: +FERR325T18 PO
[2019-11-07] MEDS ORDERED: RT-ALBUTEROL/IPRATROPIUM 3 ML (DUONEB) VIAL INH ONE (14:45)
[2019-11-07] MEDS ORDERED: KETOROLAC 30 MG/ML VIAL IVP ONE (14:45)
--- NOTE | 2019-11-07 14:46 | ED Chest Pain ---
General Chief Complaint: Chest Pain Stated Complaint: CHEST PAIN Source: patient Exam Limitations: no limitations History of Present Illness Date Seen by Provider: November 07, 2019 Time Seen by Provider: 14:45 Initial Comments To ER with reports of sharp central nonradiating chest pain constant since last night. Developed at rest. She has some mild shortness of breath with it. She does have a history of asthma. No cough no fever no chills. Pain is slightly worsened by deep breathing. Timing/Duration: changing over time Severity/Quality: sharp Location: central Radiation: no radiation Activities at Onset: none Prior CP/Workup: no prior chest pain Modifying Factors: worse with breathing ASA po PROPERTY ECONOMIST: No NTG SL PROPERTY ECONOMIST: No Associated Symptoms: shortness of breath Allergies and Home Medications Allergies Coded Allergies: No Known Drug Allergies (Unverified , 03/10/19) Home Medications Amoxicillin 500 Mg Tablet, 1,000 MG PO BID Prescribed by: JOSÉ MIGUEL SIERRA on 12/13/17 175 Amoxicillin 500 Mg Capsule, 500 MG PO BID Prescribed by: BRITTA PRAKASH on 04/28/18 1625 Cefdinir 300 Mg Capsule, 300 MG PO BID Prescribed by: CINDY YEPEZ on 03/10/19 2104 Cefuroxime Axetil 250 Mg Tablet, 250 MG PO BID, (Reported) Cefuroxime Axetil 250 Mg Tablet, 250 MG PO BID Prescribed by: KIM AYALA on 09/11/19 2252 Clarithromycin 500 Mg Tablet, 500 MG PO BID Prescribed by: JOSÉ MIGUEL SIERRA on 12/13/17 1758 Clindamycin HCl 300 Mg Capsule, 300 MG PO TID Prescribed by: KIM AYALA on 02/05/19 2135 Diclofenac Sodium 75 Mg Tablet., 75 MG PO BID PRN for pain Prescribed by: DAX ROLAND on 11/22/17 1915 Ferrous Sulfate 325 Mg Tablet, 975 MG PO every other day Prescribed by: KIM AYALA on 09/11/19 2237 Naproxen 500 Mg Tablet, 500 MG PO BID PRN for pain Prescribed by: DAX ROLAND on 04/01/19 1703 Omeprazole 20 Mg Capsule., 20 MG PO BID Prescribed by: JOSÉ MIGUEL SIERRA on 12/13/17 1758 Omeprazole 40 Mg Capsule., 40 MG PO DAILY Prescribed by: WESLEY WARE on 01/07/18 1506 Omeprazole 40 Mg Capsule.dr, 40 MG PO DAILY Prescribed by: CINDY YEPEZ on 03/10/192103 Omeprazole 20 Mg Capsule.dr, 20 MG PO BID Prescribed by: WESLEY WARE on 05/04/19 011 Ondansetron 4 Mg Tab.rapdis, 4 MG SL Q4H PRN for NAUSEA/VOMITING-1ST LINE Prescribed by: JOSÉ MIGUEL SIERRA on 09/24/17 0130 Ondansetron HCl 4 Mg Tab, 4 MG PO Q4H PRN for NAUSEA/VOMITING-1ST LINE Prescribed by: BRITTA PRAKASH on 07/20/18 1814 Prednisone 20 Mg Tab, 40 MG PO DAILY Prescribed by: DAX ROLAND on 04/01/19 1703 Sucralfate 1 Gm Tablet, 1 GM PO QIDACHS Prescribed by: WESLEY WARE on 01/07/18 1506 Sucralfate 1 Gm Tablet, 1 GM PO QIDACHS Prescribed by: WESLEY WARE on 05/04/19 011 Patient Home Medication List Home Medication List Reviewed: Yes Review of Systems Review of Systems Constitutional: see HPI; No chills EENTM: See HPI Respiratory: See HPI; Denies Cough; Shortness of Air Cardiovascular: See HPI, Chest Pain Gastrointestinal: No Symptoms Reported Genitourinary: No Symptoms Reported Musculoskeletal: no symptoms reported Skin: no symptoms reported Psychiatric/Neurological: No Symptoms Reported Endocrine: No Symptoms Reported Hematologic/Lymphatic: No Symptoms Reported Past Gwegtdc-Zfdnxw-Alqcjr Hx Patient Social History Type Used: Electronic/Vapor, Smokeless Tobacco 2nd Hand Smoke Exposure: Yes Recent Hopitalizations: No Immunizations Up To Date Tetanus Booster (TDap): Less than 5yrs Seasonal Allergies Seasonal Allergies: No Past Medical History Surgeries: Yes (HERNIA) Abdominal, Section, Tubal Ligation Respiratory: Yes Asthma Cardiac: No 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 pylori) Ulcer Musculoskeletal: No Endocrine: No HEENT: No Cancer: No Psychosocial: No Integumentary: No Blood Disorders: No Family Medical History No Pertinent Family Hx Physical Exam Vital Signs Vital Signs - First Documented 11/07/19 11/07/19 14:43 15:02 Temp 36.7 Pulse 69 Resp 18 B/P (MAP) 144/77 (99) Pulse Ox 100 O2 Delivery Room Air Capillary Refill : Height, Weight, BMI Height: 4'9.00" Weight: 205lbs. oz. 92.894380lo; 46.00 BMI Method:Stated General Appearance: No Apparent Distress, WD/WN, Obese HEENT: PERRL/EOMI, TMs Normal Neck: Full Range of Motion, Normal Inspection Respiratory: Lungs Clear, Normal Breath Sounds, No Accessory Muscle Use, No Respiratory Distress Cardiovascular: Regular Rate, Rhythm, Normal Peripheral Pulses Gastrointestinal: Normal Bowel Sounds, Non Tender, Soft Extremity: Normal Capillary Refill, Normal Inspection Neurologic/Psychiatric: Alert, Oriented x3 Skin: Normal Color, Warm/Dry Progress/Results/Core Measures Results/Orders Lab Results Laboratory Tests Test 11/07/19 14:57 Range/Units White Blood Count 6.2 4.3-11.0 10^3/uL Red Blood Count 4.36 4.35-5.85 10^6/uL Hemoglobin 8.1 L 11.5-16.0 G/DL Hematocrit 28 L 35-52 % Mean Corpuscular Volume 64 L 80-99 FL Mean Corpuscular Hemoglobin 19 L 25-34 PG Mean Corpuscular Hemoglobin Concent 29 L 32-36 G/DL Red Cell Distribution Width 20.6 H 10.0-14.5 % Platelet Count 435 H 130-400 10^3/uL Mean Platelet Volume 10.0 7.4-10.4 FL Neutrophils (%) (Auto) 55 42-75 % Lymphocytes (%) (Auto) 34 12-44 % Monocytes (%) (Auto) 9 0-12 % Eosinophils (%) (Auto) 3 0-10 % Basophils (%) (Auto) 1 0-10 % Neutrophils # (Auto) 3.4 1.8-7.8 X 10^3 Lymphocytes # (Auto) 2.1 1.0-4.0 X 10^3 Monocytes # (Auto) 0.5 0.0-1.0 X 10^3 Eosinophils # (Auto) 0.2 0.0-0.3 10^3/uL Basophils # (Auto) 0.0 0.0-0.1 10^3/uL Prothrombin Time 14.2 12.2-14.7 SEC INR Comment 1.1 0.8-1.4 Activated Partial Thromboplast Time 33 24-35 SEC D-Dimer 0.67 H 0.00-0.49 UG/ML Sodium Level 142 135-145 MMOL/L Potassium Level 3.2 L 3.6-5.0 MMOL/L Chloride Level 107 98-107 MMOL/L Carbon Dioxide Level 24 21-32 MMOL/L Anion Gap 11 5-14 MMOL/L Blood Urea Nitrogen 6 L 7-18 MG/DL Creatinine 0.72 0.60-1.30 MG/DL Estimat Glomerular Filtration Rate > 60 BUN/Creatinine Ratio 8 Glucose Level 85 70-105 MG/DL Calcium Level 8.5 8.5-10.1 MG/DL Corrected Calcium 8.5 8.5-10.1 MG/DL Magnesium Level 1.8 1.6-2.4 MG/DL Total Bilirubin 0.3 0.1-1.0 MG/DL Aspartate Amino Transf (AST/SGOT) 14 5-34 U/L Alanine Aminotransferase (ALT/SGPT) 8 0-55 U/L Alkaline Phosphatase 64 40-136 U/L Myoglobin 19.1 10.0-92.0 NG/ML Troponin I < 0.028 <0.028 NG/ML C-Reactive Protein High Sensitivity 1.03 H 0.00-0.50 MG/DL B-Type Natriuretic Peptide 21.2 <100.0 PG/ML Total Protein 8.0 6.4-8.2 GM/DL Albumin 4.0 3.2-4.5 GM/DL Lipase 15 8-78 U/L My Orders Orders - KIM AYALA APRN Cbc With Automated Diff (11/07/19 14:41) Magnesium (11/07/19 14:41) Chest 1 View, Ap/Pa Only (11/07/19 14:41) Ekg Tracing (11/07/19 14:41) Comprehensive Metabolic Panel (11/07/19 14:41) Myoglobin Serum (11/07/19 14:41) Protime With Inr (11/07/19 14:41) Partial Thromboplastin Time (11/07/19 14:41) O2 (11/07/19 14:41) Monitor-Rhythm Ecg Trace Only (11/07/19 14:41) Lipid Panel (11/08/19 06:00) Ed Iv/Invasive Line Start (11/07/19 14:41) Lipase (11/07/19 14:41) BNP (11/07/19 14:41) Fibrin Degradation Products (11/07/19 14:41) Ketorolac Injection (Toradol Injection) (11/07/19 14:45) Albuterol/Ipra Inhalation Soln (Duoneb I (11/07/19 14:45) Svn Small Volume Nebulizer (11/07/19 14:43) Hs C Reactive Protein (11/07/19 14:57) Troponin I (11/07/19 14:57) Ct Angio Chest W (11/07/19 15:22) Morphine Injection (Morphine Injection (11/07/19 15:24) Iohexol Injection (Omnipaque 350 Mg/Ml 1 (11/07/19 15:30) Received Contrast (Hold Metformin- Contr (11/07/19 15:30) Ns (Ivpb) (Sodium Chloride 0.9% Ivpb Bag (11/07/19 15:30) Antacid Suspension (Mylanta Suspension (11/07/19 15:45) Lidocaine 2% Viscous 15 Ml (Xylocaine Vi (11/07/19 15:45) Medications Given in ED Current Medications Medications Dose Ordered Sig/Giana Route Start Time Stop Time Status Last Admin Dose Admin Al Hydrox/Mg Hydrox/Simethicone 30 ml ONCE ONCE PO 11/07/19 15:45 11/07/19 15:46 DC 11/07/19 15:37 30 ML Albuterol/ Ipratropium 3 ml ONCE ONCE INH 11/07/19 14:45 11/07/19 14:46 DC 11/07/19 14:59 3 ML Iohexol 100 ml ONCE ONCE IV 11/07/19 15:30 11/07/19 15:33 DC 11/07/19 16:00 85 ML Ketorolac Tromethamine 15 mg ONCE ONCE IVP 11/07/19 14:45 11/07/19 14:46 DC 11/07/19 14:52 15 MG Lidocaine HCl 10 ml ONCE ONCE PO 11/07/19 15:45 11/07/19 15:46 DC 11/07/19 15:37 10 ML Sodium Chloride 100 ml ONCE ONCE IV 11/07/19 15:30 11/07/19 15:33 DC 11/07/19 16:00 100 ML Vital Signs/I&O 11/07/19 11/07/19 11/07/19 14:43 14:48 15:02 Temp 36.7 Pulse 69 Resp 18 B/P (MAP) 144/77 (99) Pulse Ox 100 O2 Delivery Room Air Room Air Room Air Departure Communication (Admissions) NAME: TARUN SINGH [facility] REC#: [id number] PT STATUS: REG ER : 1985 PHYSICIAN: KIM AYALA SALESPERSON HOSIERY ADMIT DATE: 11/07/19/ER Draft Date of Exam:11/07/19 CT ANGIO CHEST W PROCEDURE: CT angiography of the chest with contrast. TECHNIQUE: Multiple contiguous axial images were obtained through the chest after uneventful bolus administration of intravenous contrast. 3D reconstructed CTA MIP acquisitions were also performed. Auto Exposure Controls were utilized during the CT exam to meet ALARA standards for radiation dose reduction. INDICATION: Chest pain and dyspnea. FINDINGS: There is good opacification of pulmonary arteries without intraluminal filling defect identified. Thoracic aorta has a normal appearance. There is no significant pleural or pericardial fluid. No lobar consolidation is identified, however there is slight diffuse groundglass density in both lungs. No pathologic adenopathy is identified. There may be tiny stone in the dependent portion of the gallbladder. IMPRESSION: No CTA evidence of pulmonary embolism or other acute abnormality in the thorax apart from mild diffuse groundglass density which could be due to edema or pneumonitis. Dictated on workstation # [id number] Dict: 11/07/19 1559 Trans: 11/07/19 1605 [id number] [id number] Interpreted by: SANTOSH COHEN MD Electronically signed by: Impression Primary Impression: Chest pain Qualified Codes: R07.1 - Chest pain on breathing Disposition: 01 HOME, SELF-CARE Condition: Stable Departure-Patient Inst. Decision time for Depature: 15:30 Referrals: [facility] (PCP/Family) Primary Care Physician Patient Instructions: Pleuritic Chest Pain (DC) Add. Discharge Instructions: 1. Return to ER for any concerns 2. Follow-up with your doctor next week 3. Stay home quarantined until COVID-19 results are returned which should be tomorrow. All discharge instructions reviewed with patient and/or family. Voiced understanding. KIM AYALA SALESPERSON HOSIERY November 07, 2019 14:46
[2019-11-07 15:01] LABS: BASOPHILS % (AUTO) 1 % (0-10); EOSINOPHILS # (AUTO) 0.2 10^3/uL (0.0-0.3); EOSINOPHILS % (AUTO) 3 % (0-10); HEMATOCRIT 28 % (35-52); HEMOGLOBIN 8.1 G/DL (11.5-16.0); LYMPHOCYTES # (AUTO) 2.1 X 10^3 (1.0-4.0); LYMPHOCYTES % (AUTO) 34 % (12-44); MEAN CORPUSCULAR HEMOGLOBIN 19 PG (25-34); MEAN CORPUSCULAR HGB CONC 29 G/DL (32-36); MEAN CORPUSCULAR VOLUME 64 FL (80-99); MONOCYTES # (AUTO) 0.5 X 10^3 (0.0-1.0); MONOCYTES % (AUTO) 9 % (0-12); NEUTROPHILS # (AUTO) 3.4 X 10^3 (1.8-7.8); NEUTROPHILS % (AUTO) 55 % (42-75); PLATELET COUNT 435 10^3/uL (130-400); RED CELL DISTRIBUTION WIDTH 20.6 % (10.0-14.5); WHITE BLOOD COUNT 6.2 10^3/uL (4.3-11.0)
[2019-11-07 15:12] LABS: INR 1.1 (0.8-1.4); PROTHROMBIN TIME PATIENT 14.2 SEC (12.2-14.7)
[2019-11-07 15:13] LABS: CHLORIDE 107 MMOL/L (98-107); POTASSIUM 3.2 MMOL/L (3.6-5.0); SODIUM 142 MMOL/L (135-145)
[2019-11-07 15:15] LABS: CALCIUM 8.5 MG/DL (8.5-10.1)
[2019-11-07 15:16] LABS: GLUCOSE 85 MG/DL (70-105)
[2019-11-07 15:17] LABS: CARBON DIOXIDE 24 MMOL/L (21-32)
[2019-11-07 15:18] LABS: BILIRUBIN,TOTAL 0.3 MG/DL (0.1-1.0)
[2019-11-07 15:19] LABS: ALKALINE PHOSPHATASE 64 U/L (40-136)
[2019-11-07 15:20] LABS: CREATININE SERUM 0.72 MG/DL (0.60-1.30); GFR ESTIMATED > 60
[2019-11-07 15:21] LABS: BUN/CREATININE RATIO 8
[2019-11-07 15:22] LABS: ALANINE AMINOTRANSFERASE 8 U/L (0-55); MAGNESIUM 1.8 MG/DL (1.6-2.4)
[2019-11-07 15:23] LABS: LIPASE 15 U/L (8-78)
[2019-11-07] MEDS ORDERED: morphine INJ 10 MG/ML 1ML (SYR OR VIAL) IVP STA (15:24)
--- NOTE | 2019-11-07 15:25 | Diagnostic Imaging Report ---
INDICATION: Chest pain. COMPARISON: 05/04/2019. FINDINGS: Single frontal view of the chest demonstrates mildly enlarged cardiac silhouette. Pulmonary vasculature however is within normal limits. The lungs are well aerated and clear. No large pleural effusion or pneumothorax is seen. The visualized osseous structures show no acute abnormalities. IMPRESSION: 1. Mildly enlarged cardiac silhouette. This may be exaggerated by portable technique. There is however no evidence of failure or focal infiltrate. Dictated by: Dictated on workstation # [id number]
[2019-11-07] MEDS ORDERED: IOHEXOL 350 MG/ML 100 ML (OMNIPAQUE 350) VIAL IV ONE (15:30)
[2019-11-07] MEDS ORDERED: HOLD METFORMIN - RECEIVED CONTRAST 20 ML VIAL IV SCH (15:30)
[2019-11-07] MEDS ORDERED: NS 100 ML (IVPB) BAG IV ONE (15:30)
[2019-11-07] MEDS ORDERED: LIDOCAINE 2% VISCOUS 15 ML UDC PO ONE (15:45)
[2019-11-07] MEDS ORDERED: ANTACID SUSP 30 ML UDC (MYLANTA) PO ONE (15:45)
--- NOTE | 2019-11-07 16:05 | Diagnostic Imaging Report ---
PROCEDURE: CT angiography of the chest with contrast. TECHNIQUE: Multiple contiguous axial images were obtained through the chest after uneventful bolus administration of intravenous contrast. 3D reconstructed CTA MIP acquisitions were also performed. Auto Exposure Controls were utilized during the CT exam to meet ALARA standards for radiation dose reduction. INDICATION: Chest pain and dyspnea. FINDINGS: There is good opacification of pulmonary arteries without intraluminal filling defect identified. Thoracic aorta has a normal appearance. There is no significant pleural or pericardial fluid. No lobar consolidation is identified, however there is slight diffuse groundglass density in both lungs. No pathologic adenopathy is identified. There may be tiny stone in the dependent portion of the gallbladder. IMPRESSION: No CTA evidence of pulmonary embolism or other acute abnormality in the thorax apart from mild diffuse groundglass density which could be due to edema or pneumonitis. Dictated by: Dictated on workstation # [id number]
[2019-11-07 16:31] VITALS: BP 136/77
--- OUTSIDE RECORDS SUMMARY | 2019-11-07 17:35 | XMS REPORT | Continuity of Care Document ---
Author Organization Unknown Address Unknown Phone Unavailable Allergies Active Description Code Type Severity Reaction Onset Reported/Identified Relationship to Patient Clinical Status Yes No Known Drug Allergies [id number] Drug Allergy Unknown N/A 03/10/2019 Medications There is no data. Problems Date Dx Coded Attending Type Code Diagnosis Diagnosed By 09/24/2017 JOSÉ MIGUEL FLYNN MD, Ot B96.81 HELICOBACTER PYLORI THE CAUSE OF DISE 09/24/2017 JOSÉ MIGUEL FLYNN MD, Ot D64.9 ANEMIA, UNSPECIFIED 09/24/2017 JOSÉ MIGUEL FLYNN MD Ot F17.210 NICOTINE DEPENDENCE, CIGARETTES, UNCOMPL 09/24/2017 JOSÉ MIGUEL FLYNN MD Ot J45.909 UNSPECIFIED ASTHMA, UNCOMPLICATED 09/24/2017 JOSÉ MIGUEL FLYNN MD Ot K25.9 GASTRIC ULCER, UNSP ACUTE OR CHRONIC, 09/24/2017 JOSÉ MIGUEL FLYNN MD Ot R10.9 UNSPECIFIED ABDOMINAL PAIN 09/24/2017 JOSÉ MIGUEL FLYNN MD Ot Z87.19 PERSONAL HISTORY OF OTHER DISEASES OF TH 09/24/2017 JOSÉ MIGUEL FLYNN MD Ot Z87.59 PERSONAL HISTORY OF COMP OF PREG, CHLDBR 09/24/2017 JOSÉ MIGUEL FLYNN MD Ot Z98.51 TUBAL LIGATION STATUS 09/29/2017 JOSÉ MIGUEL FLYNN MD Ot B96.81 HELICOBACTER PYLORI THE CAUSE OF DISE 09/29/2017 JOSÉ MIGUEL FLYNN MD, Ot D64.9 ANEMIA, UNSPECIFIED 09/29/2017 JOSÉ MIGUEL FLYNN MD Ot F17.210 NICOTINE DEPENDENCE, CIGARETTES, UNCOMPL 09/29/2017 JOSÉ MIGUEL FLYNN MD Ot J45.909 UNSPECIFIED ASTHMA, UNCOMPLICATED 09/29/2017 JOSÉ MIGUEL FLYNN MD Ot K25.9 GASTRIC ULCER, UNSP ACUTE OR CHRONIC, 09/29/2017 JOSÉ MIGUEL FLYNN MD Ot R10.9 UNSPECIFIED ABDOMINAL PAIN 09/29/2017 JOSÉ MIGUEL FLYNN MD Ot Z87.19 PERSONAL HISTORY OF OTHER DISEASES OF TH 09/29/2017 JOSÉ MIGUEL FLYNN MD Ot Z87.59 PERSONAL HISTORY OF COMP OF PREG, CHLDBR 09/29/2017 JOSÉ MIGUEL FLYNN MD Ot Z98.51 TUBAL LIGATION STATUS 11/22/2017 DAX MACHADO Ot F17.210 NICOTINE DEPENDENCE, CIGARETTES, UNCOMPL 11/22/2017 DAX MACHADO Ot J45.909 UNSPECIFIED ASTHMA, UNCOMPLICATED 11/22/2017 DAX MACHADO Ot M25.561 PAIN IN RIGHT KNEE 11/22/2017 DAX MACHADO Ot S83.91XA SPRAIN OF UNSPECIFIED SITE OF RIGHT KNEE 11/22/2017 DAX MACHADO Ot X58.XXXA EXPOSURE TO OTHER SPECIFIED FACTORS, INI 11/22/2017 DAX MACHADO Ot Z87.19 PERSONAL HISTORY OF OTHER DISEASES OF TH 11/22/2017 DAX MACHADO Ot Z87.59 PERSONAL HISTORY OF COMP OF PREG, CHLDBR 11/22/2017 DAX MACHADO Ot Z98.51 TUBAL LIGATION STATUS 11/24/2017 DAX MACHADO Ot F17.210 NICOTINE DEPENDENCE, CIGARETTES, UNCOMPL 11/24/2017 DAX MACHADO Ot J45.909 UNSPECIFIED ASTHMA, UNCOMPLICATED 11/24/2017 DAX MACHADO Ot M25.561 PAIN IN RIGHT KNEE 11/24/2017 DAX MACHADO Ot S83.91XA SPRAIN OF UNSPECIFIED SITE OF RIGHT KNEE 11/24/2017 DAX MACHADO Ot X58.XXXA EXPOSURE TO OTHER SPECIFIED FACTORS, INI 11/24/2017 DAX MACHADO Ot Z87.19 PERSONAL HISTORY OF OTHER DISEASES OF TH 11/24/2017 DAX MACHADO Ot Z87.59 PERSONAL HISTORY OF COMP OF PREG, CHLDBR 11/24/2017 DAX MACHADO Ot Z98.51 TUBAL LIGATION STATUS 12/13/2017 WESLEY WARE MD Ot D50. 9 IRON DEFICIENCY ANEMIA, UNSPECIFIED 12/13/2017 WESLEY WARE MD Ot J45.909 UNSPECIFIED ASTHMA, UNCOMPLICATED 12/13/2017 WESLEY WARE MD Ot R10. 13 EPIGASTRIC PAIN 12/13/2017 WESLEY WARE MD Ot R10. 30 LOWER ABDOMINAL PAIN, UNSPECIFIED 12/13/2017 WESLEY WARE MD Ot R10. 31 RIGHT LOWER QUADRANT PAIN 12/13/2017 WESLEY WARE MD Ot Z87. 19 PERSONAL HISTORY OF OTHER DISEASES OF TH 12/13/2017 WESLEY WARE MD Ot Z87. 59 PERSONAL HISTORY OF COMP OF PREG, CHLDBR 12/13/2017 WESLEY WARE MD Ot Z98. 51 TUBAL LIGATION STATUS 12/15/2017 WESLEY WARE MD Ot D50. 9 IRON DEFICIENCY ANEMIA, UNSPECIFIED 12/15/2017 WESLEY WARE MD Ot J45.909 UNSPECIFIED ASTHMA, UNCOMPLICATED 12/15/2017 WESLEY WARE MD Ot R10. 13 EPIGASTRIC PAIN 12/15/2017 WESLEY WARE MD Ot R10. 30 LOWER ABDOMINAL PAIN, UNSPECIFIED 12/15/2017 WESLEY WARE MD Ot R10. 31 RIGHT LOWER QUADRANT PAIN 12/15/2017 WESLEY WARE MD Ot Z87. 19 PERSONAL HISTORY OF OTHER DISEASES OF 12/15/2017 WESLEY WARE MD Ot Z87. 59 PERSONAL HISTORY OF COMP OF PREG, CHLDBR 12/15/2017 WESLEY WARE MD Ot Z98. 51 TUBAL LIGATION STATUS 01/07/2018 WESLEY WARE MD Ot D64. 9 ANEMIA, UNSPECIFIED 01/07/2018 WESLEY WARE MD Ot F17.210 NICOTINE DEPENDENCE, CIGARETTES, UNCOMPL 01/07/2018 WESLEY WARE MD Ot J45.909 UNSPECIFIED ASTHMA, UNCOMPLICATED 01/07/2018 WESLEY WARE MD Ot R07. 9 CHEST PAIN, UNSPECIFIED 01/07/2018 WESLEY WARE MD Ot R10. 84 GENERALIZED ABDOMINAL PAIN 01/07/2018 WESLEY WARE MD Ot Z86. 19 PERSONAL HISTORY OF OTHER INFECTIOUS AND 01/07/2018 WESLEY WARE MD Ot Z87. 19 PERSONAL HISTORY OF OTHER DISEASES OF TH 01/07/2018 WESLEY WARE MD Ot Z87. 59 PERSONAL HISTORY OF COMP OF PREG, CHLDBR 01/07/2018 WESLEY WARE MD Ot Z98. 51 TUBAL LIGATION STATUS 01/09/2018 WESLEY WARE MD Ot D64. 9 ANEMIA, UNSPECIFIED 01/09/2018 WSELEY WARE MD Ot F17.210 NICOTINE DEPENDENCE, CIGARETTES, UNCOMPL 01/09/2018 WESLEY WARE MD Ot J45.909 UNSPECIFIED ASTHMA, UNCOMPLICATED 01/09/2018 WESLEY WARE MD Ot R07. 9 CHEST PAIN, UNSPECIFIED 01/09/2018 WESLYE WARE MD Ot R10. 84 GENERALIZED ABDOMINAL PAIN 01/09/2018 WESLEY WARE MD Ot Z86. 19 PERSONAL HISTORY OF OTHER INFECTIOUS AND 01/09/2018 WESLEY WARE MD Ot Z87. 19 PERSONAL HISTORY OF OTHER DISEASES OF 01/09/2018 WESLEY WARE MD Ot Z87. 59 PERSONAL HISTORY OF COMP OF PREG, CHLDBR 01/09/2018 WESLEY WARE MD Ot Z98. 51 TUBAL LIGATION STATUS 02/18/2018 DAX MACHADO Ot F17.210 NICOTINE DEPENDENCE, CIGARETTES, UNCOMPL 02/18/2018 DAX MACHADO Ot J45.909 UNSPECIFIED ASTHMA, UNCOMPLICATED 02/18/2018 DAX MACHADO Ot M25.561 PAIN IN RIGHT KNEE 02/18/2018 DAX MACHADO Ot S83.91XA SPRAIN OF UNSPECIFIED SITE OF RIGHT KNEE 02/18/2018 DAX MACHADO Ot X58.XXXA EXPOSURE TO OTHER SPECIFIED FACTORS, INI 02/18/2018 DAX MACHADO Ot Z87.19 PERSONAL HISTORY OF OTHER DISEASES OF 02/18/2018 DAX MACHADO Ot Z87.59 PERSONAL HISTORY OF COMP OF PREG, CHLDBR 02/18/2018 DAX MACHADO Ot Z98.51 TUBAL LIGATION STATUS 04/28/2018 BRITTA PRAKASH Ot H66.91 OTITIS MEDIA, UNSPECIFIED, RIGHT EAR 04/28/2018 BERNOT, BRITTA Ot H92.01 OTALGIA, RIGHT EAR 04/28/2018 ADELINE PRAKASHIS Ot J06.9 ACUTE UPPER RESPIRATORY INFECTION, UNSPE 04/28/2018 ADELINE PRAKASHIS Ot J45.909 UNSPECIFIED ASTHMA, UNCOMPLICATED 04/28/2018 BERNADELINE DUPONTIS Ot Z86.19 PERSONAL HISTORY OF OTHER INFECTIOUS AND 04/28/2018 ADELINE PRAKASHIS Ot Z87.19 PERSONAL HISTORY OF OTHER DISEASES OF TH 04/28/2018 ADELINE PRAKASHIS Ot Z98.51 TUBAL LIGATION STATUS 04/28/2018 ADELINE PRAKASHIS Ot Z98.890 OTHER SPECIFIED POSTPROCEDURAL STATES 05/01/2018 BRITTA PRAKASH Ot H66.91 OTITIS MEDIA, UNSPECIFIED, RIGHT EAR 05/01/2018 BRITTA PRAKASH Ot H92.01 OTALGIA, RIGHT EAR 05/01/2018 ADELINE PRAKASHIS Ot J06.9 ACUTE UPPER RESPIRATORY INFECTION, UNSPE 05/01/2018 ADELINE PRAKASHIS Ot J45.909 UNSPECIFIED ASTHMA, UNCOMPLICATED 05/01/2018 ADELINE PRAKASHIS Ot Z86.19 PERSONAL HISTORY OF OTHER INFECTIOUS AND 05/01/2018 ADELINE PRAKASHIS Ot Z87.19 PERSONAL HISTORY OF OTHER DISEASES OF TH 05/01/2018 ADELINE PRAKASHIS Ot Z98.51 TUBAL LIGATION STATUS 05/01/2018 ADELINE PRAKASHIS Ot Z98.890 OTHER SPECIFIED POSTPROCEDURAL STATES 07/20/2018 ADELINE PRAKASHIS Ot F17.210 NICOTINE DEPENDENCE, CIGARETTES, UNCOMPL 07/20/2018 ADELINE PRAKASHIS Ot J45.909 UNSPECIFIED ASTHMA, UNCOMPLICATED 07/20/2018 ADELINE PRAKASHIS Ot R10.13 EPIGASTRIC PAIN 07/20/2018 ADELINE PRAKASHIS Ot R11.2 NAUSEA WITH VOMITING, UNSPECIFIED 07/20/2018 BERNOTADELINEIS Ot Z86.19 PERSONAL HISTORY OF OTHER INFECTIOUS AND 07/20/2018 ADELINE PRAKASHIS Ot Z87.19 PERSONAL HISTORY OF OTHER DISEASES OF TH 07/20/2018 ADELINE PRAKASHIS Ot Z98.51 TUBAL LIGATION STATUS 07/20/2018 ADELINE PRAKASHIS Ot Z98.890 OTHER SPECIFIED POSTPROCEDURAL STATES 07/24/2018 ADELINE PRAKASHIS Ot F17.210 NICOTINE DEPENDENCE, CIGARETTES, UNCOMPL 07/24/2018 BRITTA PRAKASH Ot J45.909 UNSPECIFIED ASTHMA, UNCOMPLICATED 07/24/2018 BRITTA PRAKASH Ot R10.13 EPIGASTRIC PAIN 07/24/2018 BRITTA PRAKASH Ot R11.2 NAUSEA WITH VOMITING, UNSPECIFIED 07/24/2018 BRITTA PRAKASH Ot Z86.19 PERSONAL HISTORY OF OTHER INFECTIOUS AND 07/24/2018 BRITTA PRAKASH Ot Z87.19 PERSONAL HISTORY OF OTHER DISEASES OF TH 07/24/2018 ADELINE PRAKASHIS Ot Z98.51 TUBAL LIGATION STATUS 07/24/2018 BRITTA PRAKASH Ot Z98.890 OTHER SPECIFIED POSTPROCEDURAL STATES 02/05/2019 KIM AYALA PATROL DEPUTY SHERIFF Ot F17.290 NICOTINE DEPENDENCE, OTHER TOBACCO PRODU 02/05/2019 KIM AYALA APRN Ot J45.909 UNSPECIFIED ASTHMA, UNCOMPLICATED 02/05/2019 KIM AYALA PATROL DEPUTY SHERIFF Ot L02.511 CUTANEOUS ABSCESS OF RIGHT HAND 02/05/2019 KIM AYALA PATROL DEPUTY SHERIFF Ot M79.644 PAIN IN RIGHT FINGER(S) 02/05/2019 KIM AYALA PATROL DEPUTY SHERIFF Ot Z98.51 TUBAL LIGATION STATUS 02/10/2019 KIM AYALA APRN Ot F17.290 NICOTINE DEPENDENCE, OTHER TOBACCO PRODU 02/10/2019 KIM AYALA APRN Ot J45.909 UNSPECIFIED ASTHMA, UNCOMPLICATED 02/10/2019 KIM AYALA PATROL DEPUTY SHERIFF Ot L02.511 CUTANEOUS ABSCESS OF RIGHT HAND 02/10/2019 KIM AYALA PATROL DEPUTY SHERIFF Ot M79.644 PAIN IN RIGHT FINGER(S) 02/10/2019 KIM AYALA APRN Ot Z98.51 TUBAL LIGATION STATUS 03/10/2019 CINDY YEPEZ MD Ot J18.1 LOBAR PNEUMONIA, UNSPECIFIED ORGANISM 03/10/2019 CINDY YEPEZ MD Ot J45.909 UNSPECIFIED ASTHMA, UNCOMPLICATED 03/10/2019 CINDY YEPEZ MD Ot M25.571 PAIN IN RIGHT ANKLE AND JOINTS OF RIGHT 03/10/2019 CINDY YEPEZ MD Ot R06.02 SHORTNESS OF BREATH 03/10/2019 CINDY YEPEZ MD Ot R10.13 EPIGASTRIC PAIN 03/10/2019 CINDY YEPEZ MD Ot Z77.22 CNTCT W AND EXPSR TO ENVIRON TOBACCO SMO 03/10/2019 CINDY YEPEZ MD Ot Z98.51 TUBAL LIGATION STATUS 03/10/2019 CINDY YEPEZ MD Ot Z98.890 OTHER SPECIFIED POSTPROCEDURAL STATES 03/17/2019 CINDY YEPEZ MD Ot J18.1 LOBAR PNEUMONIA, UNSPECIFIED ORGANISM 03/17/2019 CINDY YEPEZ MD Ot J45.909 UNSPECIFIED ASTHMA, UNCOMPLICATED 03/17/2019 CINDY YEPEZ MD Ot M25.571 PAIN IN RIGHT ANKLE AND JOINTS OF RIGHT 03/17/2019 CINDY YEPEZ MD Ot R06.02 SHORTNESS OF BREATH 03/17/2019 CINDY YEPEZ MD Ot R10.13 EPIGASTRIC PAIN 03/17/2019 CINDY YEPEZ MD Ot Z77.22 CNTCT W AND EXPSR TO ENVIRON TOBACCO SMO 03/17/2019 CINDY YEPEZ MD Ot Z98.51 TUBAL LIGATION STATUS 03/17/2019 CINDY YEPEZ MD Ot Z98.890 OTHER SPECIFIED POSTPROCEDURAL STATES 03/23/2019 KIM AYALA APRN Ot F17.290 NICOTINE DEPENDENCE, OTHER TOBACCO PRODU 03/23/2019 KIM AYALA APRN Ot J45.909 UNSPECIFIED ASTHMA, UNCOMPLICATED 03/23/2019 KIM AYALA PATROL DEPUTY SHERIFF Ot M79.662 PAIN IN LEFT LOWER LEG 03/23/2019 KIM AYALA PATROL DEPUTY SHERIFF Ot S86.112A STRAIN MUSC/TEND POST GRP AT LOW LEG LEV 03/23/2019 KIM AYALA PATROL DEPUTY SHERIFF Ot X58.XXXA EXPOSURE TO OTHER SPECIFIED FACTORS, INI 03/23/2019 KIM AYALA APRN Ot Z98.51 TUBAL LIGATION STATUS 04/01/2019 DAX MACHADO Ot F17.290 NICOTINE DEPENDENCE, OTHER TOBACCO PRODU 04/01/2019 DAX MACHADO Ot J45.909 UNSPECIFIED ASTHMA, UNCOMPLICATED 04/01/2019 DAX MACHADO Ot M25.571 PAIN IN RIGHT ANKLE AND JOINTS OF RIGHT 04/01/2019 DAX MACHADO Ot Z98.51 TUBAL LIGATION STATUS 04/03/2019 DAX MACHADO Ot F17.290 NICOTINE DEPENDENCE, OTHER TOBACCO PRODU 04/03/2019 DAX MACHADO Ot J45.909 UNSPECIFIED ASTHMA, UNCOMPLICATED 04/03/2019 LUAN RYDER DAX Bertha Ot M25.571 PAIN IN RIGHT ANKLE AND JOINTS OF RIGHT 04/03/2019 DAX MACHADO L Ot Z98.51 TUBAL LIGATION STATUS 05/04/2019 KOLBY WARE MDUS J Ot J45.909 UNSPECIFIED ASTHMA, UNCOMPLICATED 05/04/2019 KOLBY WARE MDUS J Ot R10. 13 EPIGASTRIC PAIN 05/04/2019 JEANIE MULLEN, WESLEY J Ot Z87.891 PERSONAL HISTORY OF NICOTINE DEPENDENCE 05/04/2019 KOLBY WARE MDUS J Ot Z98. 51 TUBAL LIGATION STATUS 05/04/2019 KOLBY WARE MDUS J Ot Z98.890 OTHER SPECIFIED POSTPROCEDURAL STATES 05/08/2019 KOLBY WARE MDUS J Ot J45.909 UNSPECIFIED ASTHMA, UNCOMPLICATED 05/08/2019 JEANIE MULLEN WESLEY J Ot R10. 13 EPIGASTRIC PAIN 05/08/2019 JEANIE MULLEN WESLEY J Ot Z87.891 PERSONAL HISTORY OF NICOTINE DEPENDENCE 05/08/2019 KOLBY WARE MDUS J Ot Z98. 51 TUBAL LIGATION STATUS 05/08/2019 JEANIE MULLEN WESLEY J Ot Z98.890 OTHER SPECIFIED POSTPROCEDURAL STATES 06/04/2019 MARY JO, SHANI TRANSITION LEAD Ot F17.290 NICOTINE DEPENDENCE, OTHER TOBACCO PRODU 06/04/2019 MARY JO, SHANI TRANSITION LEAD Ot J06.9 ACUTE UPPER RESPIRATORY INFECTION, UNSPE 06/04/2019 MARY JO, SHANI TRANSITION LEAD Ot J45.909 UNSPECIFIED ASTHMA, UNCOMPLICATED 06/04/2019 MARY JO, SHANI TRANSITION LEAD Ot R05 COUGH 06/04/2019 MARY JO, SHANI TRANSITION LEAD Ot R09.82 POSTNASAL DRIP 06/04/2019 MARY JO, SHANI TRANSITION LEAD Ot Z98.51 TUBAL LIGATION STATUS 06/09/2019 MARY JO, SHANI TRANSITION LEAD Ot F17.290 NICOTINE DEPENDENCE, OTHER TOBACCO PRODU 06/09/2019 MARY JO, SHANI TRANSITION LEAD Ot J06.9 ACUTE UPPER RESPIRATORY INFECTION, UNSPE 06/09/2019 MARY JO, SHANI TRANSITION LEAD Ot J45.909 UNSPECIFIED ASTHMA, UNCOMPLICATED 06/09/2019 SHANI CAMARGO Ot R05 COUGH 06/09/2019 SHANI CAMARGO Ot R09.82 POSTNASAL DRIP 06/09/2019 SHANI CAMARGO Ot Z98.51 TUBAL LIGATION STATUS Procedures There is no data. Results Test Result Range Complete blood count (CBC) with automate d white blood cell (WBC) differential - 09/24/17 00:50 Blood leukocytes automated count (number/volume) 7.0 10*3/uL 4.3-11.0 Blood erythrocytes automated count (number/volume) 4.41 10*6/uL 4.35-5.85 Venous blood hemoglobin measurement (mass/volume) 8.8 g/dL 11.5-16.0 Blood hematocrit (volume fraction) 29 % 35-52 Automated erythrocyte mean corpuscular volume 65 [ foz_us] 80-99 Automated erythrocyte mean corpuscular h emoglobin (mass per erythrocyte) 20 pg 25-34 Automated erythrocyte mean corpuscular h emoglobin concentration measurement (mass/volume) 31 g/dL 32-36 Automated erythrocyte distribution width ratio 18. 6 % 10.0- 14.5 Automated blood platelet count (count/volume) 359 10*3/uL 130-400 Automated blood platelet mean volume measurement 11.3 [foz_us] 7.4-10.4 Automated blood neutrophils/100 leukocytes 52 % 42-75 Automated blood lymphocytes/100 leukocytes 39 % 12-44 Blood monocytes/100 leukocytes 7 % 0-12 Automated blood eosinophils/100 leukocytes 3 % 0-10 Automated blood basophils/100 leukocytes 0 % 0-10 Blood neutrophils automated count (number/volume) 3.6 10*3 1.8-7.8 Blood lymphocytes automated count (number/volume) 2.7 10*3 1.0-4.0 Blood monocytes automated count (number/volume) 0. 5 10*3 0.0-1.0 Automated eosinophil count 0.2 10*3/uL 0 .0-0.3 Automated blood basophil count (count/volume) 0.0 10*3/uL 0.0-0.1 Complete urinalysis with reflex to cultu re - 09/24/17 00:50 Urine color determination YELLOW NRG Urine clarity determination SLIGHTLY CLOUDY NRG Urine pH measurement by test strip 6 5-9 Specific gravity of urine by test strip 1.020 1.016-1.022 Urine protein assay by test strip, semi-quantitative NEGATIVE NEGATIVE Urine glucose detection by automated test strip NE GATIVE NEGATIVE Erythrocytes detection in urine sediment by light micr oscopy NEGATIVE NEGATIVE Urine ketones detection by automated test strip NE GATIVE NEGATIVE Urine nitrite detection by test strip NEGATIVE NEGATIVE Urine total bilirubin detection by test strip NEGA TIVE NEGATIVE Urine urobilinogen measurement by automated test strip (mass/volume) NORMAL NORMAL Urine leukocyte esterase detection by dipstick 1+ NEGATIVE Automated urine sediment erythrocyte cou nt by microscopy (number/high power field) NONE NRG Automated urine sediment leukocyte count by microscopy (number/high power field) RARE NRG Bacteria detection in urine sediment by light microsco py TRACE NRG Squamous epithelial cells detection in u rine sediment by light microscopy 2-5 NRG Crystals detection in urine sediment by light microsco py NONE NRG Casts detection in urine sediment by light microscopy NONE NRG Mucus detection in urine sediment by light microscopy NEGATIVE NRG Complete urinalysis with reflex to culture NO NRG Serum or plasma choriogonadotropin (preg tiera test) detection - 09/24/17 00:50 Serum or plasma choriogonadotropin ( test) de tection NEGATIVE NEGATIVE Comprehensive metabolic panel - 09/24/17 00:50 Serum or plasma sodium measurement (moles/volume) 140 mmol/L 135-145 Serum or plasma potassium measurement (moles/volume) 3.6 mmol/L 3.6-5.0 Serum or plasma chloride measurement (moles/volume) 106 mmol/L 98-107 Carbon dioxide 27 mmol/L 21-32 Serum or plasma anion gap determination (moles/volume) 7 mmol/L 5-14 Serum or plasma urea nitrogen measurement (mass/volume ) 7 mg/dL 7-18 Serum or plasma creatinine measurement (mass/volume) 0.65 mg/dL 0.60-1.30 Serum or plasma urea nitrogen/creatinine mass ratio 11 NRG Serum or plasma creatinine measurement w ith calculation of estimated glomerular filtration rate > NRG Serum or plasma glucose measurement (mass/volume) 102 mg/dL 70-105 Serum or plasma calcium measurement (mass/volume) 9.0 mg/dL 8.5-10.1 Serum or plasma total bilirubin measurement (mass/volu me) 0.2 mg/dL 0.1-1.0 Serum or plasma alkaline phosphatase miesha surement (enzymatic activity/volume) 72 U/L 40-136 Serum or plasma aspartate aminotransfera se measurement (enzymatic activity/volume) 15 U/L 5-34 Serum or plasma alanine aminotransferase measurement (enzymatic activity/volume) 8 U/L 0-55 Serum or plasma protein measurement (mass/volume) 7.3 g/dL 6.4-8.2 Serum or plasma albumin measurement (mass/volume) 3.9 g/dL 3.2-4.5 Lipase - 09/24/17 00:50 Lipase 33 U/L 8-78 PLATELET ESTIMATION - 12/05/17 12:43 PLATELET ESTIMATION ADEQUATE ADEQUATE CBC MORPHOLOGY - 12/05/17 12:43 CBC MORPHOLOGY NORMAL Complete urinalysis with reflex to cultu re - 12/13/17 16:40 Urine color determination YELLOW NRG Urine clarity determination CLEAR NR G Urine pH measurement by test strip 6.5 5-9 Specific gravity of urine by test strip 1.015 1.016-1.022 Urine protein assay by test strip, semi-quantitative 1+ NEGATIVE Urine glucose detection by automated test strip NE GATIVE NEGATIVE Erythrocytes detection in urine sediment by light micr oscopy NEGATIVE NEGATIVE Urine ketones detection by automated test strip NE GATIVE NEGATIVE Urine nitrite detection by test strip NEGATIVE NEGATIVE Urine total bilirubin detection by test strip NEGA TIVE NEGATIVE Urine urobilinogen measurement by automated test strip (mass/volume) 1 mg/dL NORMAL Urine leukocyte esterase detection by dipstick 1+ NEGATIVE Automated urine sediment erythrocyte cou nt by microscopy (number/high power field) NONE NRG Automated urine sediment leukocyte count by microscopy (number/high power field) [HPF] NRG Bacteria detection in urine sediment by light microsco py MODERATE NRG Squamous epithelial cells detection in u rine sediment by light microscopy 2-5 NRG Crystals detection in urine sediment by light microsco py NONE NRG Casts detection in urine sediment by light microscopy NONE NRG Mucus detection in urine sediment by light microscopy NEGATIVE NRG Complete urinalysis with reflex to culture YES NRG Bacterial urine culture - 12/13/17 16:40 Bacterial urine culture SEE COMMEN NRG COLONY COUNT . NRG Complete blood count (CBC) with automate d white blood cell (WBC) differential - 12/13/17 16:52 Blood leukocytes automated count (number/volume) 9.6 10*3/uL 4.3-11.0 Blood erythrocytes automated count (number/volume) 4.31 10*6/uL 4.35-5.85 Venous blood hemoglobin measurement (mass/volume) 8.6 g/dL 11.5-16.0 Blood hematocrit (volume fraction) 28 % 35-52 Automated erythrocyte mean corpuscular volume 64 [ foz_us] 80-99 Automated erythrocyte mean corpuscular h emoglobin (mass per erythrocyte) 20 pg 25-34 Automated erythrocyte mean corpuscular h emoglobin concentration measurement (mass/volume) 31 g/dL 32-36 Automated erythrocyte distribution width ratio 18. 0 % 10.0- 14.5 Automated blood platelet count (count/volume) 433 10*3/uL 130-400 Automated blood platelet mean volume measurement 10.9 [foz_us] 7.4-10.4 Automated blood neutrophils/100 leukocytes 59 % 42-75 Automated blood lymphocytes/100 leukocytes 30 % 12-44 Blood monocytes/100 leukocytes 9 % 0-12 Automated blood eosinophils/100 leukocytes 3 % 0-10 Automated blood basophils/100 leukocytes 0 % 0-10 Blood neutrophils automated count (number/volume) 5.7 10*3 1.8-7.8 Blood lymphocytes automated count (number/volume) 2.8 10*3 1.0-4.0 Blood monocytes automated count (number/volume) 0. 8 10*3 0.0-1.0 Automated eosinophil count 0.3 10*3/uL 0 .0-0.3 Automated blood basophil count (count/volume) 0.0 10*3/uL 0.0-0.1 Serum or plasma choriogonadotropin (preg tiera test) detection - 12/13/17 16:52 Serum or plasma choriogonadotropin ( test) de tection NEGATIVE NEGATIVE Comprehensive metabolic panel - 12/13/17 16:52 Serum or plasma sodium measurement (moles/volume) 140 mmol/L 135-145 Serum or plasma potassium measurement (moles/volume) 4.0 mmol/L 3.6-5.0 Serum or plasma chloride measurement (moles/volume) 107 mmol/L 98-107 Carbon dioxide 24 mmol/L 21-32 Serum or plasma anion gap determination (moles/volume) 9 mmol/L 5-14 Serum or plasma urea nitrogen measurement (mass/volume ) 8 mg/dL 7-18 Serum or plasma creatinine measurement (mass/volume) 0.66 mg/dL 0.60-1.30 Serum or plasma urea nitrogen/creatinine mass ratio 12 NRG Serum or plasma creatinine measurement w ith calculation of estimated glomerular filtration rate > NRG Serum or plasma glucose measurement (mass/volume) 89 mg/dL 70-105 Serum or plasma calcium measurement (mass/volume) 9.0 mg/dL 8.5-10.1 Serum or plasma total bilirubin measurement (mass/volu me) 0.2 mg/dL 0.1-1.0 Serum or plasma alkaline phosphatase miesha surement (enzymatic activity/volume) 77 U/L 40-136 Serum or plasma aspartate aminotransfera se measurement (enzymatic activity/volume) 20 U/L 5-34 Serum or plasma alanine aminotransferase measurement (enzymatic activity/volume) 18 U/L 0-55 Serum or plasma protein measurement (mass/volume) 7.9 g/dL 6.4-8.2 Serum or plasma albumin measurement (mass/volume) 4.0 g/dL 3.2-4.5 Lipase - 12/13/17 16:52 Lipase 30 U/L 8-78 Complete blood count (CBC) with automate d white blood cell (WBC) differential - 01/07/18 11:46 Blood leukocytes automated count (number/volume) 7.2 10*3/uL 4.3-11.0 Blood erythrocytes automated count (number/volume) 4.55 10*6/uL 4.35-5.85 Venous blood hemoglobin measurement (mass/volume) 9.0 g/dL 11.5-16.0 Blood hematocrit (volume fraction) 29 % 35-52 Automated erythrocyte mean corpuscular volume 64 [ foz_us] 80-99 Automated erythrocyte mean corpuscular h emoglobin (mass per erythrocyte) 20 pg 25-34 Automated erythrocyte mean corpuscular h emoglobin concentration measurement (mass/volume) 31 g/dL 32-36 Automated erythrocyte distribution width ratio 18. 4 % 10.0- 14.5 Automated blood platelet count (count/volume) 355 10*3/uL 130-400 Automated blood platelet mean volume measurement 11.5 [foz_us] 7.4-10.4 Automated blood neutrophils/100 leukocytes 59 % 42-75 Automated blood lymphocytes/100 leukocytes 29 % 12-44 Blood monocytes/100 leukocytes 9 % 0-12 Automated blood eosinophils/100 leukocytes 3 % 0-10 Automated blood basophils/100 leukocytes 0 % 0-10 Blood neutrophils automated count (number/volume) 4.2 10*3 1.8-7.8 Blood lymphocytes automated count (number/volume) 2.1 10*3 1.0-4.0 Blood monocytes automated count (number/volume) 0. 7 10*3 0.0-1.0 Automated eosinophil count 0.2 10*3/uL 0 .0-0.3 Automated blood basophil count (count/volume) 0.0 10*3/uL 0.0-0.1 Comprehensive metabolic panel - 01/07/18 11:46 Serum or plasma sodium measurement (moles/volume) 140 mmol/L 135-145 Serum or plasma potassium measurement (moles/volume) 3.9 mmol/L 3.6-5.0 Serum or plasma chloride measurement (moles/volume) 108 mmol/L 98-107 Carbon dioxide 21 mmol/L 21-32 Serum or plasma anion gap determination (moles/volume) 11 mmol/L 5-14 Serum or plasma urea nitrogen measurement (mass/volume ) 8 mg/dL 7-18 Serum or plasma creatinine measurement (mass/volume) 0.65 mg/dL 0.60-1.30 Serum or plasma urea nitrogen/creatinine mass ratio 12 NRG Serum or plasma creatinine measurement w ith calculation of estimated glomerular filtration rate > NRG Serum or plasma glucose measurement (mass/volume) 86 mg/dL 70-105 Serum or plasma calcium measurement (mass/volume) 9.0 mg/dL 8.5-10.1 Serum or plasma total bilirubin measurement (mass/volu me) 0.4 mg/dL 0.1-1.0 Serum or plasma alkaline phosphatase miesha surement (enzymatic activity/volume) 71 U/L 40-136 Serum or plasma aspartate aminotransfera se measurement (enzymatic activity/volume) 16 U/L 5-34 Serum or plasma alanine aminotransferase measurement (enzymatic activity/volume) 11 U/L 0-55 Serum or plasma protein measurement (mass/volume) 7.5 g/dL 6.4-8.2 Serum or plasma albumin measurement (mass/volume) 3.9 g/dL 3.2-4.5 Magnesium - 01/07/18 11:46 Magnesium 2.0 mg/dL 1.8-2.4 Serum or plasma troponin i.cardiac measu rement (mass/volume) - 01/07/18 11:46 Serum or plasma troponin i.cardiac measurement (mass/v olume) < ng/mL <0.30 Lipase - 01/07/18 11:46 Lipase 16 U/L 8-78 Serum or plasma ethanol measurement (mas s/volume) - 01/07/18 11:46 Serum or plasma ethanol measurement (mass/volume) < mg/dL <10 Complete urinalysis with reflex to cultu re - 01/07/18 12:02 Urine color determination YELLOW NRG Urine clarity determination SLIGHTLY CLOUDY NRG Urine pH measurement by test strip 5 5-9 Specific gravity of urine by test strip 1.025 1.016-1.022 Urine protein assay by test strip, semi-quantitative 1+ NEGATIVE Urine glucose detection by automated test strip NE GATIVE NEGATIVE Erythrocytes detection in urine sediment by light micr oscopy NEGATIVE NEGATIVE Urine ketones detection by automated test strip NE GATIVE NEGATIVE Urine nitrite detection by test strip NEGATIVE NEGATIVE Urine total bilirubin detection by test strip NEGA TIVE NEGATIVE Urine urobilinogen measurement by automated test strip (mass/volume) NORMAL NORMAL Urine leukocyte esterase detection by dipstick 1+ NEGATIVE Automated urine sediment erythrocyte cou nt by microscopy (number/high power field) NONE NRG Automated urine sediment leukocyte count by microscopy (number/high power field) [HPF] NRG Bacteria detection in urine sediment by light microsco py FEW NRG Squamous epithelial cells detection in u rine sediment by light microscopy 10-25 NRG Crystals detection in urine sediment by light microsco py NONE NRG Casts detection in urine sediment by light microscopy NONE NRG Mucus detection in urine sediment by light microscopy NEGATIVE NRG Complete urinalysis with reflex to culture NO NRG Yeast detection in urine sediment by light microscopy FEW NRG Urine beta human chorionic gonadotropin (hCG) measurement - 01/07/18 12:02 Urine beta human chorionic gonadotropin (hCG) measurem ent NEGATIVE NEGATIVE CULTURE, GENITAL - 03/24/18 14:22 CULTURE, GENITAL SEE NOTE NRG SUREPATH PAP AND HPV mRNA E6/E7 - 14:22 CLINICAL INFORMATION: NRG LMP: 03/21/18 NRG PREV. PAP: UNKNOWN NRG PREV. BX: N/A NRG SOURCE: [employer] NRG STATEMENT OF ADEQUACY: NRG INTERPRETATION/RESULT: NRG SIGNALLING AND COMMUNICATIONS ENGINEER: ROCIO HPV mRNA E6/E7, SUREPATH VIAL Not Detected NOT DETECTED GENERAL CATEGORIZATION: NR COMMENT: FRANTZ PATHOLOGIST: ROCIO COMMENT NR Complete blood count (CBC) with automate d white blood cell (WBC) differential - 04/28/18 15:27 Blood leukocytes automated count (number/volume) 8.0 10*3/uL 4.3-11.0 Blood erythrocytes automated count (number/volume) 4.46 10*6/uL 4.35-5.85 Venous blood hemoglobin measurement (mass/volume) 9.1 g/dL 11.5-16.0 Blood hematocrit (volume fraction) 29 % 35-52 Automated erythrocyte mean corpuscular volume 66 [ foz_us] 80-99 Automated erythrocyte mean corpuscular h emoglobin (mass per erythrocyte) 20 pg 25-34 Automated erythrocyte mean corpuscular h emoglobin concentration measurement (mass/volume) 31 g/dL 32-36 Automated erythrocyte distribution width ratio 18. 7 % 10.0- 14.5 Automated blood platelet count (count/volume) 436 10*3/uL 130-400 Automated blood platelet mean volume measurement 11.3 [foz_us] 7.4-10.4 Automated blood neutrophils/100 leukocytes 56 % 42-75 Automated blood lymphocytes/100 leukocytes 32 % 12-44 Blood monocytes/100 leukocytes 10 % 0-12 Automated blood eosinophils/100 leukocytes 2 % 0-10 Automated blood basophils/100 leukocytes 0 % 0-10 Blood neutrophils automated count (number/volume) 4.5 10*3 1.8-7.8 Blood lymphocytes automated count (number/volume) 2.6 10*3 1.0-4.0 Blood monocytes automated count (number/volume) 0. 8 10*3 0.0-1.0 Automated eosinophil count 0.2 10*3/uL 0 .0-0.3 Automated blood basophil count (count/volume) 0.0 10*3/uL 0.0-0.1 PT panel in platelet poor plasma by coag ulation assay - 04/28/18 15:27 Prothrombin time (PT) in platelet poor plasma by coagu lation assay 14.0 s 12.2-14.7 INR in platelet poor plasma or blood by coagulation as say 1.1 0.8-1.4 Activated partial thromboplastin time (a PTT) in platelet poor plasma bycoagulation assay - 04/28/18 15:27 Activated partial thromboplastin time (a PTT) in platelet poor plasma bycoagulation assay 35 s 24-35 Comprehensive metabolic panel - 04/28/18 15:27 Serum or plasma sodium measurement (moles/volume) 141 mmol/L 135-145 Serum or plasma potassium measurement (moles/volume) 3.2 mmol/L 3.6-5.0 Serum or plasma chloride measurement (moles/volume) 108 mmol/L 98-107 Carbon dioxide 21 mmol/L 21-32 Serum or plasma anion gap determination (moles/volume) 12 mmol/L 5-14 Serum or plasma urea nitrogen measurement (mass/volume ) 10 mg/dL 7-18 Serum or plasma creatinine measurement (mass/volume) 0.65 mg/dL 0.60-1.30 Serum or plasma urea nitrogen/creatinine mass ratio 15 NRG Serum or plasma creatinine measurement w ith calculation of estimated glomerular filtration rate > NRG Serum or plasma glucose measurement (mass/volume) 82 mg/dL 70-105 Serum or plasma calcium measurement (mass/volume) 8.6 mg/dL 8.5-10.1 Serum or plasma total bilirubin measurement (mass/volu me) 0.2 mg/dL 0.1-1.0 Serum or plasma alkaline phosphatase miesha surement (enzymatic activity/volume) 63 U/L 40-136 Serum or plasma aspartate aminotransfera se measurement (enzymatic activity/volume) 16 U/L 5-34 Serum or plasma alanine aminotransferase measurement (enzymatic activity/volume) 10 U/L 0-55 Serum or plasma protein measurement (mass/volume) 8.0 g/dL 6.4-8.2 Serum or plasma albumin measurement (mass/volume) 4.1 g/dL 3.2-4.5 CALCIUM CORRECTED 8.5 mg/dL 8.5-10.1 Magnesium - 04/28/18 15:27 Magnesium 1.9 mg/dL 1.8-2.4 Serum or plasma troponin i.cardiac measu rement (mass/volume) - 04/28/18 15:27 Serum or plasma troponin i.cardiac measurement (mass/v olume) < ng/mL <0.30 Myoglobin, serum - 04/28/18 15:27 Myoglobin, serum 19.3 ng/mL 10.0-92.0 Complete blood count (CBC) with automate d white blood cell (WBC) differential - 07/20/18 16:08 Blood leukocytes automated count (number/volume) 8.5 10*3/uL 4.3-11.0 Blood erythrocytes automated count (number/volume) 4.40 10*6/uL 4.35-5.85 Venous blood hemoglobin measurement (mass/volume) 8.7 g/dL 11.5-16.0 Blood hematocrit (volume fraction) 29 % 35-52 Automated erythrocyte mean corpuscular volume 67 [ foz_us] 80-99 Automated erythrocyte mean corpuscular h emoglobin (mass per erythrocyte) 20 pg 25-34 Automated erythrocyte mean corpuscular h emoglobin concentration measurement (mass/volume) 30 g/dL 32-36 Automated erythrocyte distribution width ratio 18. 5 % 10.0- 14.5 Automated blood platelet count (count/volume) 413 10*3/uL 130-400 Automated blood platelet mean volume measurement 11.3 [foz_us] 7.4-10.4 Automated blood neutrophils/100 leukocytes 73 % 42-75 Automated blood lymphocytes/100 leukocytes 19 % 12-44 Blood monocytes/100 leukocytes 7 % 0-12 Automated blood eosinophils/100 leukocytes 2 % 0-10 Automated blood basophils/100 leukocytes 0 % 0-10 Blood neutrophils automated count (number/volume) 6.2 10*3 1.8-7.8 Blood lymphocytes automated count (number/volume) 1.6 10*3 1.0-4.0 Blood monocytes automated count (number/volume) 0. 6 10*3 0.0-1.0 Automated eosinophil count 0.1 10*3/uL 0 .0-0.3 Automated blood basophil count (count/volume) 0.0 10*3/uL 0.0-0.1 Serum or plasma choriogonadotropin (preg tiera test) detection - 07/20/18 16:08 Serum or plasma choriogonadotropin ( test) de tection NEGATIVE NEGATIVE Comprehensive metabolic panel - 07/20/18 16:08 Serum or plasma sodium measurement (moles/volume) 137 mmol/L 135-145 Serum or plasma potassium measurement (moles/volume) 3.6 mmol/L 3.6-5.0 Serum or plasma chloride measurement (moles/volume) 106 mmol/L 98-107 Carbon dioxide 23 mmol/L 21-32 Serum or plasma anion gap determination (moles/volume) 8 mmol/L 5-14 Serum or plasma urea nitrogen measurement (mass/volume ) 8 mg/dL 7-18 Serum or plasma creatinine measurement (mass/volume) 0.67 mg/dL 0.60-1.30 Serum or plasma urea nitrogen/creatinine mass ratio 12 NRG Serum or plasma creatinine measurement w ith calculation of estimated glomerular filtration rate > NRG Serum or plasma glucose measurement (mass/volume) 79 mg/dL 70-105 Serum or plasma calcium measurement (mass/volume) 8.7 mg/dL 8.5-10.1 Serum or plasma total bilirubin measurement (mass/volu me) 0.4 mg/dL 0.1-1.0 Serum or plasma alkaline phosphatase miesha surement (enzymatic activity/volume) 75 U/L 40-136 Serum or plasma aspartate aminotransfera se measurement (enzymatic activity/volume) 17 U/L 5-34 Serum or plasma alanine aminotransferase measurement (enzymatic activity/volume) 11 U/L 0-55 Serum or plasma protein measurement (mass/volume) 8.2 g/dL 6.4-8.2 Serum or plasma albumin measurement (mass/volume) 4.2 g/dL 3.2-4.5 CALCIUM CORRECTED 8.5 mg/dL 8.5-10.1 Serum or plasma amylase measurement (enz ymatic activity/volume) - 07/20/18 16:08 Serum or plasma amylase measurement (enzymatic activit y/volume) 53 U/L 25-125 Lipase - 07/20/18 16:08 Lipase 19 U/L 8-78 Complete urinalysis with reflex to cultu re - 07/20/18 16:50 Urine color determination ELZBIETA NRG Urine clarity determination VERY CLOUDY NRG Urine pH measurement by test strip 5 5-9 Specific gravity of urine by test strip 1.025 1.016-1.022 Urine protein assay by test strip, semi-quantitative 2+ NEGATIVE Urine glucose detection by automated test strip NE GATIVE NEGATIVE Erythrocytes detection in urine sediment by light micr oscopy NEGATIVE NEGATIVE Urine ketones detection by automated test strip NE GATIVE NEGATIVE Urine nitrite detection by test strip NEGATIVE NEGATIVE Urine total bilirubin detection by test strip NEGA TIVE NEGATIVE Urine urobilinogen measurement by automated test strip (mass/volume) NORMAL NORMAL Urine leukocyte esterase detection by dipstick 1+ NEGATIVE Automated urine sediment erythrocyte cou nt by microscopy (number/high power field) NONE NRG Automated urine sediment leukocyte count by microscopy (number/high power field) [HPF] NRG Bacteria detection in urine sediment by light microsco py MODERATE NRG Squamous epithelial cells detection in u rine sediment by light microscopy 10-25 NRG Crystals detection in urine sediment by light microsco py NONE NRG Casts detection in urine sediment by light microscopy NONE NRG Mucus detection in urine sediment by light microscopy NEGATIVE NRG Complete urinalysis with reflex to culture NO NRG Gram stain microscopy - 07/20/18 16:58 Gram stain microscopy Red blood cell debris NRG Bacteria identification in wound by cult ure - 07/20/18 16:58 Bacteria identification in wound by culture [id number] NRG FREE TEXT EXTERNAL RML SENT SENSITIVITY REPORT 07/05 0 13:05 NRG QUANTITY OF GROWTH Rare NRG RML Sensitivity Panel - 07/20/18 16:58 Oxacillin susceptibility test by minimum inhibitory co ncentration 0.5 NRG Clindamycin susceptibility test by minimum inhibitory concentration <= NRG Erythromycin susceptibility test by minimum inhibitory concentration <= NRG Trimethoprim/sulfamethoxazole susceptibi lity test by minimum inhibitoryconcentration < NRG Vancomycin susceptibility test by minimum inhibitory c oncentration 1 NRG Levofloxacin susceptibility test by minimum inhibitory concentration <= NRG Rifampin susceptibility test by minimum inhibitory con centration <= NRG Cefazolin susceptibility test by minimum inhibitory co ncentration <= NRG Linezolid susceptibility test by minimum inhibitory co ncentration 2 NRG Penicillin G susceptibility test by minimum inhibitory concentration 1 NRG Minocycline susc CLARI <= NRG Gram stain microscopy - 02/05/19 21:23 Gram stain microscopy No bacteria seen NRG Bacteria identification in wound by cult ure - 02/05/19 21:23 Bacteria identification in wound by culture [id number] NRG FREE TEXT EXTERNAL SUSCEPTIBILITY REPORTED 02/07/19 14:20 NRG QUANTITY OF GROWTH Moderate Growth NRG FREE TEXT ENTRY 2 ID REPORTED 02/06/19 15:05 NRG Dirithromycin susceptibility test by dis k diffusion - 02/05/19 21:23 Gentamicin susceptibility test by minimum inhibitory c oncentration <= NRG Trimethoprim/sulfamethoxazole susceptibi lity test by minimum inhibitoryconcentration S NRG Levofloxacin susceptibility test by minimum inhibitory concentration <= NRG Ampicillin susceptibility test by minimum inhibitory c oncentration > NRG Cefazolin susceptibility test by minimum inhibitory co ncentration > NRG Ceftriaxone susceptibility test by minimum inhibitory concentration <= NRG Piperacillin/tazobactam susceptibility t est by minimum inhibitory concentration S NRG Ciprofloxacin susceptibility test by minimum inhibitor y concentration <= NRG Meropenem susceptibility test by minimum inhibitory co ncentration <= NRG Amoxicillin and clavulanate potassium susc CLARI > NRG Complete blood count (CBC) with automate d white blood cell (WBC) differential - 03/10/19 19:05 Blood leukocytes automated count (number/volume) 8.2 10*3/uL 4.3-11.0 Blood erythrocytes automated count (number/volume) 4.53 10*6/uL 4.35-5.85 Venous blood hemoglobin measurement (mass/volume) 8.5 g/dL 11.5-16.0 Blood hematocrit (volume fraction) 29 % 35-52 Automated erythrocyte mean corpuscular volume 63 [ foz_us] 80-99 Automated erythrocyte mean corpuscular h emoglobin (mass per erythrocyte) 19 pg 25-34 Automated erythrocyte mean corpuscular h emoglobin concentration measurement (mass/volume) 30 g/dL 32-36 Automated erythrocyte distribution width ratio 19. 0 % 10.0- 14.5 Automated blood platelet count (count/volume) 439 10*3/uL 130-400 Automated blood platelet mean volume measurement 11.3 [foz_us] 7.4-10.4 Automated blood neutrophils/100 leukocytes 56 % 42-75 Automated blood lymphocytes/100 leukocytes 31 % 12-44 Blood monocytes/100 leukocytes 10 % 0-12 Automated blood eosinophils/100 leukocytes 3 % 0-10 Automated blood basophils/100 leukocytes 0 % 0-10 Blood neutrophils automated count (number/volume) 4.6 10*3 1.8-7.8 Blood lymphocytes automated count (number/volume) 2.5 10*3 1.0-4.0 Blood monocytes automated count (number/volume) 0. 8 10*3 0.0-1.0 Automated eosinophil count 0.2 10*3/uL 0 .0-0.3 Automated blood basophil count (count/volume) 0.0 10*3/uL 0.0-0.1 Serum or plasma choriogonadotropin (preg tiera test) detection - 03/10/19 19:05 Serum or plasma choriogonadotropin ( test) de tection NEGATIVE NEGATIVE Comprehensive metabolic panel - 03/10/19 19:05 Serum or plasma sodium measurement (moles/volume) 139 mmol/L 135-145 Serum or plasma potassium measurement (moles/volume) 3.7 mmol/L 3.6-5.0 Serum or plasma chloride measurement (moles/volume) 106 mmol/L 98-107 Carbon dioxide 23 mmol/L 21-32 Serum or plasma anion gap determination (moles/volume) 10 mmol/L 5-14 Serum or plasma urea nitrogen measurement (mass/volume ) 6 mg/dL 7-18 Serum or plasma creatinine measurement (mass/volume) 0.71 mg/dL 0.60-1.30 Serum or plasma urea nitrogen/creatinine mass ratio 8 NRG Serum or plasma creatinine measurement w ith calculation of estimated glomerular filtration rate > NRG Serum or plasma glucose measurement (mass/volume) 85 mg/dL 70-105 Serum or plasma calcium measurement (mass/volume) 8.6 mg/dL 8.5-10.1 Serum or plasma total bilirubin measurement (mass/volu me) 0.4 mg/dL 0.1-1.0 Serum or plasma alkaline phosphatase miesha surement (enzymatic activity/volume) 81 U/L 40-136 Serum or plasma aspartate aminotransfera se measurement (enzymatic activity/volume) 15 U/L 5-34 Serum or plasma alanine aminotransferase measurement (enzymatic activity/volume) 11 U/L 0-55 Serum or plasma protein measurement (mass/volume) 8.4 g/dL 6.4-8.2 Serum or plasma albumin measurement (mass/volume) 4.2 g/dL 3.2-4.5 CALCIUM CORRECTED 8.4 mg/dL 8.5-10.1 Serum or plasma troponin i.cardiac measu rement (mass/volume) - 03/10/19 19:05 Serum or plasma troponin i.cardiac measurement (mass/v olume) < ng/mL <0.028 Serum or plasma choriogonadotropin (preg tiera test) detection - 05/03/19 22:45 Serum or plasma choriogonadotropin ( test) de tection NEGATIVE NEGATIVE Complete blood count (CBC) with automate d white blood cell (WBC) differential - 05/03/19 23:36 Blood leukocytes automated count (number/volume) 8.9 10*3/uL 4.3-11.0 Blood erythrocytes automated count (number/volume) 4.48 10*6/uL 4.35-5.85 Venous blood hemoglobin measurement (mass/volume) 8.5 g/dL 11.5-16.0 Blood hematocrit (volume fraction) 28 % 35-52 Automated erythrocyte mean corpuscular volume 63 [ foz_us] 80-99 Automated erythrocyte mean corpuscular h emoglobin (mass per erythrocyte) 19 pg 25-34 Automated erythrocyte mean corpuscular h emoglobin concentration measurement (mass/volume) 30 g/dL 32-36 Automated erythrocyte distribution width ratio 19. 1 % 10.0- 14.5 Automated blood platelet count (count/volume) 438 10*3/uL 130-400 Automated blood platelet mean volume measurement 11.1 [foz_us] 7.4-10.4 Automated blood neutrophils/100 leukocytes 46 % 42-75 Automated blood lymphocytes/100 leukocytes 39 % 12-44 Blood monocytes/100 leukocytes 9 % 0-12 Automated blood eosinophils/100 leukocytes 5 % 0-10 Automated blood basophils/100 leukocytes 1 % 0-10 Blood neutrophils automated count (number/volume) 4.1 10*3 1.8-7.8 Blood lymphocytes automated count (number/volume) 3.5 10*3 1.0-4.0 Blood monocytes automated count (number/volume) 0. 8 10*3 0.0-1.0 Automated eosinophil count 0.4 10*3/uL 0 .0-0.3 Automated blood basophil count (count/volume) 0.0 10*3/uL 0.0-0.1 Comprehensive metabolic panel - 05/03/19 23:36 Serum or plasma sodium measurement (moles/volume) 139 mmol/L 135-145 Serum or plasma potassium measurement (moles/volume) 4.0 mmol/L 3.6-5.0 Serum or plasma chloride measurement (moles/volume) 106 mmol/L 98-107 Carbon dioxide 22 mmol/L 21-32 Serum or plasma anion gap determination (moles/volume) 11 mmol/L 5-14 Serum or plasma urea nitrogen measurement (mass/volume ) 11 mg/dL 7-18 Serum or plasma creatinine measurement (mass/volume) 0.70 mg/dL 0.60-1.30 Serum or plasma urea nitrogen/creatinine mass ratio 16 NRG Serum or plasma creatinine measurement w ith calculation of estimated glomerular filtration rate > NRG Serum or plasma glucose measurement (mass/volume) 95 mg/dL 70-105 Serum or plasma calcium measurement (mass/volume) 9.2 mg/dL 8.5-10.1 Serum or plasma total bilirubin measurement (mass/volu me) 0.2 mg/dL 0.1-1.0 Serum or plasma alkaline phosphatase miesha surement (enzymatic activity/volume) 83 U/L 40-136 Serum or plasma aspartate aminotransfera se measurement (enzymatic activity/volume) 17 U/L 5-34 Serum or plasma alanine aminotransferase measurement (enzymatic activity/volume) 14 U/L 0-55 Serum or plasma protein measurement (mass/volume) 8.3 g/dL 6.4-8.2 Serum or plasma albumin measurement (mass/volume) 4.2 g/dL 3.2-4.5 CALCIUM CORRECTED 9.0 mg/dL 8.5-10.1 Serum or plasma troponin i.cardiac measu rement (mass/volume) - 05/03/19 23:36 Serum or plasma troponin i.cardiac measurement (mass/v olume) < ng/mL <0.028 Lipase - 05/03/19 23:36 Lipase 25 U/L 8-78 Serum or plasma C reactive protein measu rement (mass/volume) - 05/03/19 23:36 Serum or plasma C reactive protein measurement (mass/v olume) 1.08 mg/dL 0.00-0.50 Complete urinalysis with reflex to cultu re - 05/03/19 23:40 Urine color determination ELZBIETA NRG Urine clarity determination SLIGHTLY CLOUDY NRG Urine pH measurement by test strip 5 5-9 Specific gravity of urine by test strip 1.025 1.016-1.022 Urine protein assay by test strip, semi-quantitative NEGATIVE NEGATIVE Urine glucose detection by automated test strip NE GATIVE NEGATIVE Erythrocytes detection in urine sediment by light micr oscopy NEGATIVE NEGATIVE Urine ketones detection by automated test strip NE GATIVE NEGATIVE Urine nitrite detection by test strip NEGATIVE NEGATIVE Urine total bilirubin detection by test strip NEGA TIVE NEGATIVE Urine urobilinogen measurement by automated test strip (mass/volume) NORMAL NORMAL Urine leukocyte esterase detection by dipstick 3+ NEGATIVE Automated urine sediment erythrocyte cou nt by microscopy (number/high power field) NONE NRG Automated urine sediment leukocyte count by microscopy (number/high power field) [HPF] NRG Bacteria detection in urine sediment by light microsco py FEW NRG Squamous epithelial cells detection in u rine sediment by light microscopy 5-10 NRG Crystals detection in urine sediment by light microsco py NONE NRG Casts detection in urine sediment by light microscopy NONE NRG Mucus detection in urine sediment by light microscopy NEGATIVE NRG Complete urinalysis with reflex to culture YES NRG Bacterial urine culture - 05/03/19 23:40 Bacterial urine culture 3 OR MORE NRG COLONY COUNT >100,000/ML NRG FTX;REPORTABLE GRAM POSITIVES, SUGGESTING PROBABLE NRG FREE TEXT ENTRY 2 COLLECTION CONTAMINATION WITH SK IN FAN NRG FREE TEXT ENTRY 3 NO SUSCEPTIBILITY PERFORMED NRG CULTURE, URINE - 07/26/19 16:27 CULTURE, URINE, ROUTINE SEE NOTE NRG Complete urinalysis with reflex to cultu re - 09/11/19 21:03 Urine color determination YELLOW NRG Urine clarity determination SL CLOUDY N RG Urine pH measurement by test strip 6.5 5-9 Specific gravity of urine by test strip >= 1.016-1.022 Urine protein assay by test strip, semi-quantitative TRACE NEGATIVE Urine glucose detection by automated test strip NE GATIVE NEGATIVE Erythrocytes detection in urine sediment by light micr oscopy 3+ NEGATIVE Urine ketones detection by automated test strip NE GATIVE NEGATIVE Urine nitrite detection by test strip NEGATIVE NEGATIVE Urine total bilirubin detection by test strip NEGA TIVE NEGATIVE Urine urobilinogen measurement by automated test strip (mass/volume) 2.0 mg/dL < = 1.0 Urine leukocyte esterase detection by dipstick NEG ATIVE NEGATIVE Automated urine sediment erythrocyte cou nt by microscopy (number/high power field) > [HPF] NRG Automated urine sediment leukocyte count by microscopy (number/high power field) [HPF] NRG Bacteria detection in urine sediment by light microsco py MODERATE NRG Crystals detection in urine sediment by light microsco py NONE NRG Casts detection in urine sediment by light microscopy NONE NRG Mucus detection in urine sediment by light microscopy NEGATIVE NRG Complete urinalysis with reflex to culture YES NRG Bacterial urine culture - 09/11/19 21:03 Bacterial urine culture 3 OR MORE NRG COLONY COUNT 80,000 CFU/ML NRG FTX;REPORTABLE GRAM POSITIVES, SUGGESTING PROBABLE NRG FREE TEXT ENTRY 2 COLLECTION CONTAMINATION WITH SK IN FAN NRG FREE TEXT ENTRY 3 NO SUSCEPTIBILITY PERFORMED NRG Bacteria identification in genital speci men by aerobe culture - 09/11/19 21:07 FREE TEXT EXTERNAL SEE COMENT NRG QUANTITY OF GROWTH . NRG Bacteria identification in genital specimen by aerobe culture SEE COMMEN NRG Microscopic examination by wet preparati on - 09/11/19 21:07 WET PREP RESULTS 09/11/19 21:30 BY CN NR G Chlamydia trachomatis DNA detection by p robe and signal amplification method - 09/11/19 21:07 Chlamydia trachomatis DNA detection by p robe and target amplification method Not Detected Not Detected Neisseria gonorrhoeae DNA detection by p robe and signal amplification method - 09/11/19 21:07 Gonorrhea amp DNA-urine Not Detected No t Detected Complete blood count (CBC) with automate d white blood cell (WBC) differential - 09/11/19 21:38 Blood leukocytes automated count (number/volume) 10.6 10*3/uL 4.3-11.0 Blood erythrocytes automated count (number/volume) 4.09 10*6/uL 4.35-5.85 Venous blood hemoglobin measurement (mass/volume) 7.6 g/dL 11.5-16.0 Blood hematocrit (volume fraction) 26 % 35-52 Automated erythrocyte mean corpuscular volume 64 [ foz_us] 80-99 Automated erythrocyte mean corpuscular h emoglobin (mass per erythrocyte) 19 pg 25-34 Automated erythrocyte mean corpuscular h emoglobin concentration measurement (mass/volume) 29 g/dL 32-36 Automated erythrocyte distribution width ratio 19. 4 % 10.0- 14.5 Automated blood platelet count (count/volume) 538 10*3/uL 130-400 Automated blood platelet mean volume measurement 11.1 [foz_us] 7.4-10.4 Automated blood neutrophils/100 leukocytes 66 % 42-75 Automated blood lymphocytes/100 leukocytes 25 % 12-44 Blood monocytes/100 leukocytes 8 % 0-12 Automated blood eosinophils/100 leukocytes 2 % 0-10 Automated blood basophils/100 leukocytes 0 % 0-10 Blood neutrophils automated count (number/volume) 7.0 10*3 1.8-7.8 Blood lymphocytes automated count (number/volume) 2.6 10*3 1.0-4.0 Blood monocytes automated count (number/volume) 0. 8 10*3 0.0-1.0 Automated eosinophil count 0.2 10*3/uL 0 .0-0.3 Automated blood basophil count (count/volume) 0.0 10*3/uL 0.0-0.1 Serum or plasma choriogonadotropin (preg tiera test) detection - 09/11/19 21:38 Serum or plasma choriogonadotropin ( test) de tection NEGATIVE NEGATIVE Comprehensive metabolic panel - 09/11/19 21:38 Serum or plasma sodium measurement (moles/volume) 140 mmol/L 135-145 Serum or plasma potassium measurement (moles/volume) 3.3 mmol/L 3.6-5.0 Serum or plasma chloride measurement (moles/volume) 106 mmol/L 98-107 Carbon dioxide 21 mmol/L 21-32 Serum or plasma anion gap determination (moles/volume) 13 mmol/L 5-14 Serum or plasma urea nitrogen measurement (mass/volume ) 10 mg/dL 7-18 Serum or plasma creatinine measurement (mass/volume) 0.77 mg/dL 0.60-1.30 Serum or plasma urea nitrogen/creatinine mass ratio 13 NRG Serum or plasma creatinine measurement w ith calculation of estimated glomerular filtration rate > NRG Serum or plasma glucose measurement (mass/volume) 75 mg/dL 70-105 Serum or plasma calcium measurement (mass/volume) 8.8 mg/dL 8.5-10.1 Serum or plasma total bilirubin measurement (mass/volu me) 0.2 mg/dL 0.1-1.0 Serum or plasma alkaline phosphatase miesha surement (enzymatic activity/volume) 71 U/L 40-136 Serum or plasma aspartate aminotransfera se measurement (enzymatic activity/volume) 19 U/L 5-34 Serum or plasma alanine aminotransferase measurement (enzymatic activity/volume) 12 U/L 0-55 Serum or plasma protein measurement (mass/volume) 8.1 g/dL 6.4-8.2 Serum or plasma albumin measurement (mass/volume) 4.1 g/dL 3.2-4.5 CALCIUM CORRECTED 8.7 mg/dL 8.5-10.1 Lipase - 09/11/19 21:38 Lipase 24 U/L 8-78 Serum iron and total iron binding capaci ty panel - 09/11/19 21:38 TIBC 465 % 280-380 UIBC 454 % 55-450 Serum or plasma iron measurement (mass/volume) 11 % 35-180 Total iron binding capacity and transferrin saturation measurement 2 % 15-50 Serum or plasma ferritin measurement (mass/volume) < % 20.0- 177.0 CMP - 09/13/19 13:51 GLUCOSE 85 mg/dL 65-99 UREA NITROGEN (BUN) 12 mg/dL 7-25 CREATININE 0.55 mg/dL 0.50-1.10 eGFR NON-AFR. NIGERIAN 122 mL/min/1.73m2 > OR = 60 eGFR 142 mL/min/1.73m2 > OR = 60 BUN/CREATININE RATIO NOT APPLICABLE (calc) 6-22 SODIUM 139 mmol/L 135-146 POTASSIUM 3.7 mmol/L 3.5-5.3 CHLORIDE 106 mmol/L 98-110 CARBON DIOXIDE 26 mmol/L 20-32 CALCIUM 8.6 mg/dL 8.6-10.2 PROTEIN, TOTAL 7.4 g/dL 6.1-8.1 ALBUMIN 4.0 g/dL 3.6-5.1 GLOBULIN 3.4 g/dL (calc) 1.9-3.7 ALBUMIN/GLOBULIN RATIO 1.2 (calc) 1.0-2. 5 BILIRUBIN, TOTAL 0.2 mg/dL 0.2-1.2 ALKALINE PHOSPHATASE 68 U/L 31-125 AST 18 U/L 10-30 ALT 13 U/L 6-29 CBC - 09/13/19 13:51 WHITE BLOOD CELL COUNT 9.2 Thousand/uL 3 .8-10.8 RED BLOOD CELL COUNT 3.79 Million/uL 3.8 0-5.10 HEMOGLOBIN 7.2 g/dL 11.7-15.5 HEMATOCRIT 25.2 % 35.0-45.0 MCV 66.5 fL 80.0-100.0 MCH 19.0 pg 27.0-33.0 MCHC 28.6 g/dL 32.0-36.0 RDW 18.2 % 11.0-15.0 PLATELET COUNT 561 Thousand/uL 140-400 MPV 11.1 fL 7.5-12.5 ABSOLUTE NEUTROPHILS 5658 cells/uL 1500- 7800 ABSOLUTE LYMPHOCYTES 2374 cells/uL 850-3 900 ABSOLUTE MONOCYTES 856 cells/uL 200-950 ABSOLUTE EOSINOPHILS 267 cells/uL 15-500 ABSOLUTE BASOPHILS 46 cells/uL 0-200 NEUTROPHILS 61.5 % NRG LYMPHOCYTES 25.8 % NRG MONOCYTES 9.3 % NRG EOSINOPHILS 2.9 % NRG BASOPHILS 0.5 % NRG PLATELET ESTIMATION - 09/13/19 13:51 CBC MORPHOLOGY - 09/13/19 13:51 CBC MORPHOLOGY NORMAL Encounters ACCT No. Visit Date/Time Discharge Status Pt. Type Provider Facility Loc./Unit Complaint [id number] 09/19/2019 15:30:00 09/19/2019 23:59: 59 CLS Outpatient ZAID LANGE [facility] [id number] 09/13/2019 13:20:00 Document Registration [id number] 07/26/2019 14:45:00 Document Registration [id number] 03/24/2018 10:20:00 Document Registration [id number] 12/05/2017 11:40:00 Document Registration [id number] 09/11/2019 20:45:00 23:05:00 DIS Emergency KIM AYALA APRN [facility] ER PAIN IN BOTH SIDES [id number] 06/04/2019 17:33:00 19:28:00 DIS Emergency SHANI CAMARGO [facility] ER SORE THROAT,BODY ACHES, DIZZINESS [id number] 05/03/2019 23:25:00 01:36:00 DIS Emergency WESLEY WARE MD [facility] ER PRESSURE AT CENTER OF C HEST,POSS YEAST INFECTION [id number] 04/01/2019 14:54:00 17:11:00 DIS Emergency DAX MACHADO [facility] ER R ANKLE PAIN [id number] 03/23/2019 16:09:00 17:06:00 DIS Emergency KIM AYALA APRN [facility] ER LEFT LEG PAIN [id number] 03/10/2019 19:04:00 21:35:00 DIS Emergency CINDY YEPEZ MD [facility] ER CHEST PAIN, SOB [id number] 02/05/2019 20:25:00 019 22:20:00 DIS Emergency KIM AYALA APRN [facility] ER R FINGER PAIN / DIZZY [id number] 07/20/2018 15:49:00 019 18:36:00 DIS Emergency BRITTA PRAKASH [facility] ER BURNING IN CHEST [id number] 04/28/2018 13:41:00 018 16:40:00 DIS Emergency BRITTA PRAKASH [facility] ER EAR PAIN;CHEST CONGESTI ON;COUGH [id number] 01/07/2018 11:35:00 018 15:23:00 DIS Emergency WESLEY WARE MD [facility] ER CHEST PAIN [id number] 12/13/2017 15:50:00 018 19:32:00 DIS Emergency WESLEY WARE MD [facility] ER ABD PAIN;WRIST PAIN [id number] 11/22/2017 16:59:00 018 19:22:00 DIS Emergency DAX MACHADO [facility] ER R KNEE PAIN [id number] 09/23/2017 22:32:00 018 01:40:00 DIS Emergency JOSÉ MIGUEL FLYNN MD [facility] ER STOMACH PAIN
== END 2019-11-07 16:31 | disposition home or self-care (01) ==
LOC: EDUNIT# 14:39 → ER 14:43
DX: R07.1 Chest pain on breathing (principal); F17.290 Nicotine dependence, other tobacco product, uncomplicated; J45.909 Unspecified asthma, uncomplicated; Z87.19 Personal history of other diseases of the digestive system; Z79.899 Other long term (current) drug therapy
CPT/HCPCS: 36415; 71045; 71275; 80053; 83690; 83735; 83874; 83880; 84484; 85025; 85379; 85610; 85730; 86141; 87635; 93041; 94640

== ENCOUNTER 2019-11-12 22:37 | Emergency (ER) | payer MEDICAID ==
[~2019-11-12] VITALS: Ht 149.8 cm; Wt 102.3 kg
--- NOTE | 2019-11-12 22:58 | ED Chest Pain ---
General Stated Complaint: CHEST PAIN Source: patient Exam Limitations: no limitations History of Present Illness Date Seen by Provider: November 12, 2019 Time Seen by Provider: 22:38 Initial Comments Patient presents to ER by private conveyance with chief complaint of substernal chest pain reproducible by direct palpation or inspiration that started about 12 hours ago this morning. She says been going on episodically for the past couple days. She came to the ER and was diagnosed with bronchitis and pleurisy. She was told to take NSAIDs. Unfortunately she has significant GERD and when she took naproxen for today she says it made her nauseated and she vomited. She is not getting good control of her chest pain and now her acid reflux is working up. She took Pepcid which helped some but Tums had little effect. She does not have anything for nausea. She's had a fever of 100.5 this afternoon at 1700. She denies chest surgeries. She's had no endoscopy but she did have C-sections on her abdomen. She's not having any significant abdominal pain. No history of coronary disease. No high blood pressure hyperlipidemia or diabetes. She takes no medicines routinely. She has a tubal ligation. She follows with [facility] routinely. She is not on antibiotics. Patient had a negative screen for COVID-19 yesterday. Patient had a negative CTA demonstrating groundglass appearance bilateral lungs consistent with pneumonitis from yesterday as well. Allergies and Home Medications Allergies Coded Allergies: No Known Drug Allergies (Unverified , 03/10/19) Home Medications Omeprazole 40 Mg Capsule.dr, 40 MG PO DAILY Prescribed by: WESLEY WARE on 11/13/193 Ondansetron 4 Mg Tab.rapdis, 4 MG PO Q6H PRN for NAUSEA/VOMITING Prescribed by: WESLEY WARE on 11/13/193 Sucralfate 1 Gm Tablet, 1 GM PO QIDACHS Prescribed by: WESLEY WARE on 11/13/193 Patient Home Medication List Home Medication List Reviewed: Yes Review of Systems Review of Systems Constitutional: chills, fever, malaise EENTM: No Blurred Vision, No Double Vision Respiratory: Cough (nonproductive), Shortness of Air, SOA With Exertion; Denies Wheezing Cardiovascular: Chest Pain; Denies Lightheadedness, Denies Syncope Gastrointestinal: Denies Constipated, Denies Diarrhea, Denies Nausea Genitourinary: Denies Burning, Denies Discharge, Denies Pain Musculoskeletal: No back pain, No joint pain Skin: No pruritus, No rash Psychiatric/Neurological: Denies Headache, Denies Numbness, Denies Paresthesia All Other Systems Reviewed Negative Unless Noted: Yes Past Teynblm-Qofahc-Qdlned Hx Patient Social History Alcohol Use: Denies Use Recreational Drug Use: No Smoking Status: Current Everyday Smoker (0.25 ppd) Type Used: Cigarettes, Electronic/Vapor, Smokeless Tobacco 2nd Hand Smoke Exposure: Yes Recent Foreign Travel: No Contact w/Someone Who Travel: No Recent Hopitalizations: No Immunizations Up To Date Tetanus Booster (TDap): Less than 5yrs Seasonal Allergies Seasonal Allergies: No Past Medical History Surgeries: Yes (HERNIA) Abdominal, Section, Tubal Ligation Respiratory: Yes Asthma Cardiac: No Neurological: No CLAY BURNER History: Tubal Ligation Genitourinary: No Gastrointestinal: Yes (H. pylori) Ulcer Musculoskeletal: No Endocrine: No HEENT: No Cancer: No Psychosocial: No Integumentary: No Blood Disorders: No Family Medical History No Pertinent Family Hx Physical Exam Vital Signs Vital Signs - First Documented Capillary Refill : Height, Weight, BMI Height: 4'9.00" Weight: 205lbs. oz. 92.778427re; 41.00 BMI Method:Stated General Appearance: No Apparent Distress, WD/WN HEENT: PERRL/EOMI, Pharynx Normal, Moist Mucous Membranes Neck: Full Range of Motion, Normal Inspection Respiratory: Lungs Clear, Normal Breath Sounds, No Accessory Muscle Use, No Respiratory Distress, Other (chest pain is exquisitely reproducible with direct palpation over the sternum) Cardiovascular: Regular Rate, Rhythm, Normal Peripheral Pulses Gastrointestinal: Normal Bowel Sounds, Non Tender, Soft Extremity: Normal Capillary Refill, Normal Inspection, No Pedal Edema Neurologic/Psychiatric: Alert, Oriented x3, No Motor/Sensory Deficits Skin: Normal Color, Warm/Dry Progress/Results/Core Measures Results/Orders Lab Results Laboratory Tests Test 11/12/19 22:30 Range/Units White Blood Count 7.7 4.3-11.0 10^3/uL Red Blood Count 4.26 L 4.35-5.85 10^6/uL Hemoglobin 7.8 L 11.5-16.0 G/DL Hematocrit 27 L 35-52 % Mean Corpuscular Volume 62 L 80-99 FL Mean Corpuscular Hemoglobin 18 L 25-34 PG Mean Corpuscular Hemoglobin Concent 29 L 32-36 G/DL Red Cell Distribution Width 20.0 H 10.0-14.5 % Platelet Count 476 H 130-400 10^3/uL Mean Platelet Volume 10.3 7.4-10.4 FL Neutrophils (%) (Auto) 57 42-75 % Lymphocytes (%) (Auto) 33 12-44 % Monocytes (%) (Auto) 8 0-12 % Eosinophils (%) (Auto) 2 0-10 % Basophils (%) (Auto) 0 0-10 % Neutrophils # (Auto) 4.3 1.8-7.8 X 10^3 Lymphocytes # (Auto) 2.5 1.0-4.0 X 10^3 Monocytes # (Auto) 0.6 0.0-1.0 X 10^3 Eosinophils # (Auto) 0.2 0.0-0.3 10^3/uL Basophils # (Auto) 0.0 0.0-0.1 10^3/uL Sodium Level 139 135-145 MMOL/L Potassium Level 3.7 3.6-5.0 MMOL/L Chloride Level 106 98-107 MMOL/L Carbon Dioxide Level 23 21-32 MMOL/L Anion Gap 10 5-14 MMOL/L Blood Urea Nitrogen 7 7-18 MG/DL Creatinine 0.68 0.60-1.30 MG/DL Estimat Glomerular Filtration Rate > 60 BUN/Creatinine Ratio 10 Glucose Level 87 70-105 MG/DL Calcium Level 8.8 8.5-10.1 MG/DL Corrected Calcium 8.9 8.5-10.1 MG/DL Total Bilirubin 0.2 0.1-1.0 MG/DL Aspartate Amino Transf (AST/SGOT) 28 5-34 U/L Alanine Aminotransferase (ALT/SGPT) 14 0-55 U/L Alkaline Phosphatase 68 40-136 U/L Troponin I < 0.028 <0.028 NG/ML C-Reactive Protein High Sensitivity 1.28 H 0.00-0.50 MG/DL Total Protein 8.0 6.4-8.2 GM/DL Albumin 3.9 3.2-4.5 GM/DL My Orders Orders - WESLEY WARE Cbc With Automated Diff (11/12/19 22:49) Comprehensive Metabolic Panel (11/12/19 22:49) Hs C Reactive Protein (11/12/19 22:49) Chest Pa/Lat (2 View) (11/12/19 22:49) Troponin I (11/12/19 22:49) Continuous Ekg Monitoring (11/12/19 22:49) Ekg Tracing (11/12/19 22:49) Pantoprazole Injection (Protonix Injecti (11/12/19 23:00) Ondansetron Injection (Zofran Injectio (11/12/19 23:00) Ketorolac Injection (Toradol Injection) (11/12/19 23:15) Lidocaine 1% Inj 20 Ml (Xylocaine 1% Inj (11/12/19 23:15) Medications Given in ED Current Medications Medications Dose Ordered Sig/Giana Route Start Time Stop Time Status Last Admin Dose Admin Ketorolac Tromethamine 30 mg ONCE ONCE IVP 11/12/19 23:15 11/12/19 23:16 DC 11/12/19 23:10 30 MG Lidocaine HCl 10 ml ONCE ONCE INJ 11/12/19 23:15 11/12/19 23:16 DC 11/12/19 23:10 10 ML Ondansetron HCl 4 mg ONCE ONCE IVP 11/12/19 23:00 11/12/19 23:01 DC 11/12/19 22:58 4 MG Pantoprazole 40 mg ONCE ONCE IV 11/12/19 23:00 11/12/19 23:01 DC 11/12/19 22:58 40 MG Vital Signs/I&O 11/12/19 11/12/19 22:40 22:40 Temp 36.6 Pulse 75 Resp 18 B/P (MAP) 138/87 (104) Pulse Ox 100 O2 Delivery Room Air Room Air Progress Progress Note #1: Time: 22:59 Progress Note COVID-19 pulmonary embolism ruled out. She appears to be having pleurisy related to some kind of bronchitis likely viral. Her labs initially were unremarkable. Plan to repeat them today. We'll give her Toradol and IV lidocaine for her pain. Pantoprazole for GERD. Apparently the NSAIDs she's been using for her pleurisy has been acting her GERD so put her on routine dose of omeprazole and Carafate may be helpful. Ondansetron for nausea. Progress Note #2: Time: 23:54 Progress Note Patient's hemoglobin is stable low. We have encouraged her to follow this up o utpatient. Her pain is under control and she has no nausea. Plan to put her on Carafate, omeprazole, switch the NSAIDs ibuprofen and Tylenol and finally some ondansetron for nausea. We'll encourage her to follow-up in one to 2 weeks with primary care for her anemia. She is okay with this plan. Initial ECG Impression Date: November 12, 2019 Initial ECG Impression Time: 22:42 Initial ECG Rate: 72 Initial ECG Rhythm: Normal Sinus Initial ECG Intervals: Normal Initial ECG Impression: Normal Initial ECG Comparisson: Unchanged Comment Normal sinus rhythm without clinically relevant ST elevation or depression. Diagnostic Imaging Diagonstic Imaging: Xray Plain Films/CT/US/NM/MRI: chest (2v) Comments No acute cardiopulmonary processes on a 2 view chest x-ray. Reviewed: Reviewed by Me Departure Impression Primary Impression: Pleurisy Additional Impressions: Bronchitis Microcytic anemia GERD (gastroesophageal reflux disease) Qualified Codes: K21.0 - Gastro-esophageal reflux disease with esophagitis Disposition: 01 HOME, SELF-CARE Condition: Improved Departure-Patient Inst. Decision time for Depature: 00:00 Referrals: [facility] (PCP/Family) Primary Care Physician Patient Instructions: Acute Bronchitis, Pleuritic Chest Pain (DC), Acid Reflux and Gastroesophageal Reflux Disease in Adults Add. Discharge Instructions: Use heat, topical creams with capsaicin oil and Tylenol 1000 mg every 8 hours as needed for pain. For breakthrough pain you may use ibuprofen 600 mg every 8 hours as needed. NSAIDs such as ibuprofen will worsen your acid reflux. Start using omeprazole 40 milligrams daily for the next month to reduce the acid in your stomach. Start using Carafate half an hour before meals and at bedtime for a total of 4 times a day for the next 2 weeks to protect the lining of your stomach. If you experience nausea or vomiting you may take one tablet of ondansetron under your tongue every 6 hours as needed. Plan to follow up with your primary care doctor within the next 1-2 weeks to discuss your anemia. Expect by then your pain should be significantly improved. If it is not please bring this up with your primary physician. Scripts Omeprazole (Omeprazole) 40 Mg Capsule.dr 40 MG PO DAILY for 30 Days, #30 CAP 0 Refills Prov: WESLEY WARE 11/13/19 Sucralfate (Carafate) 1 Gm Tablet 1 GM PO QIDACHS for 14 Days, #56 TAB 0 Refills Prov: WESLEY WARE 11/13/19 Ondansetron (Ondansetron Odt) 4 Mg Tab.rapdis 4 MG PO Q6H PRN for NAUSEA/VOMITING, #8 TAB 0 Refills Prov: WESLEY WARE 11/13/19 Work/School Note: Work Release Form Date Seen in the Emergency Department: November 13, 2019 Return to Work: November 13, 2019 Restrictions: No Restrictions WESLEY WARE November 12, 2019 22:58
[2019-11-12 22:59] LABS: BASOPHILS % (AUTO) 0 % (0-10); EOSINOPHILS # (AUTO) 0.2 10^3/uL (0.0-0.3); EOSINOPHILS % (AUTO) 2 % (0-10); HEMATOCRIT 27 % (35-52); HEMOGLOBIN 7.8 G/DL (11.5-16.0); LYMPHOCYTES # (AUTO) 2.5 X 10^3 (1.0-4.0); LYMPHOCYTES % (AUTO) 33 % (12-44); MEAN CORPUSCULAR HEMOGLOBIN 18 PG (25-34); MEAN CORPUSCULAR HGB CONC 29 G/DL (32-36); MEAN CORPUSCULAR VOLUME 62 FL (80-99); MEAN PLATELET VOLUME 10.3 FL (7.4-10.4); MONOCYTES # (AUTO) 0.6 X 10^3 (0.0-1.0); MONOCYTES % (AUTO) 8 % (0-12); NEUTROPHILS # (AUTO) 4.3 X 10^3 (1.8-7.8); NEUTROPHILS % (AUTO) 57 % (42-75); PLATELET COUNT 476 10^3/uL (130-400); WHITE BLOOD COUNT 7.7 10^3/uL (4.3-11.0)
[2019-11-12] MEDS ORDERED: PANTOPRAZOLE 40 MG (PROTONIX) VIAL IV ONE (23:00)
[2019-11-12] MEDS ORDERED: ONDANSETRON 4 MG/2 ML (SDV) Z0FRAN IVP ONE (23:00)
[2019-11-12] MEDS ORDERED: KETOROLAC 30 MG/ML VIAL IVP ONE (23:15)
[2019-11-12] MEDS ORDERED: LIDOCAINE 1% INJ 20 ML 20 ML VIAL INJ ONE (23:15)
[2019-11-12 23:19] LABS: ALBUMIN 3.9 GM/DL (3.2-4.5); CHLORIDE 106 MMOL/L (98-107); POTASSIUM 3.7 MMOL/L (3.6-5.0); SODIUM 139 MMOL/L (135-145)
[2019-11-12 23:20] LABS: CALCIUM 8.8 MG/DL (8.5-10.1)
--- OUTSIDE RECORDS SUMMARY | 2019-11-12 23:20 | XMS REPORT | Continuity of Care Document ---
Author Organization Unknown Address Unknown Phone Unavailable Allergies Active Description Code Type Severity Reaction Onset Reported/Identified Relationship to Patient Clinical Status Yes No Known Drug Allergies [id number] Drug Allergy Unknown N/A 03/10/2019 Medications There [...] Ot F17.210 NICOTINE DEPENDENCE, CIGARETTES, UNCOMPL 11/22/2017 DXA MACHADO Ot J45.909 UNSPECIFIED ASTHMA, UNCOMPLICATED 11/22/2017 [...] MD Ot D64. 9 ANEMIA, UNSPECIFIED 01/09/2018 WESLEY WARE MD Ot F17.210 NICOTINE DEPENDENCE, CIGARETTES, UNCOMPL 01/09/2018 WESLEY WARE MD Ot J45.909 UNSPECIFIED ASTHMA, UNCOMPLICATED 01/09/2018 WESLEY WARE MD Ot R07. 9 CHEST PAIN, UNSPECIFIED 01/09/2018 WESLEY WARE MD Ot R10. 84 GENERALIZED [...] OTHER SPECIFIED POSTPROCEDURAL STATES 02/05/2019 KIM AYALA BORING MACHINE OPERATOR DOUBLE END Ot F17.290 NICOTINE DEPENDENCE, OTHER TOBACCO PRODU 02/05/2019 KIM AYALA APRN Ot J45.909 UNSPECIFIED ASTHMA, UNCOMPLICATED 02/05/2019 KIM AYALA BORING MACHINE OPERATOR DOUBLE END Ot L02.511 CUTANEOUS ABSCESS OF RIGHT HAND 02/05/2019 KIM AYALA BORING MACHINE OPERATOR DOUBLE END Ot M79.644 PAIN IN RIGHT FINGER(S) 02/05/2019 KIM AYALA BORING MACHINE OPERATOR DOUBLE END Ot Z98.51 TUBAL LIGATION STATUS 02/10/2019 KIM AYALA APRN Ot F17.290 NICOTINE DEPENDENCE, OTHER TOBACCO PRODU 02/10/2019 KIM AYALA APRN Ot J45.909 UNSPECIFIED ASTHMA, UNCOMPLICATED 02/10/2019 KIM AYALA BORING MACHINE OPERATOR DOUBLE END Ot L02.511 CUTANEOUS ABSCESS OF RIGHT HAND 02/10/2019 KIM AYALA BORING MACHINE OPERATOR DOUBLE END Ot M79.644 PAIN IN RIGHT FINGER(S) 02/10/2019 [...] MD Ot R10.13 EPIGASTRIC PAIN 03/17/2019 CINDY YEEPZ MD Ot Z77.22 CNTCT W AND EXPSR TO ENVIRON TOBACCO SMO 03/17/2019 CINDY YEPEZ MD Ot Z98.51 TUBAL LIGATION STATUS 03/17/2019 CINDY YEPEZ MD Ot Z98.890 OTHER SPECIFIED POSTPROCEDURAL STATES 03/23/2019 KIM AYALA APRN Ot F17.290 NICOTINE DEPENDENCE, OTHER TOBACCO PRODU 03/23/2019 KIM AYALA APRN Ot J45.909 UNSPECIFIED ASTHMA, UNCOMPLICATED 03/23/2019 KIM AYALA BORING MACHINE OPERATOR DOUBLE END Ot M79.662 PAIN IN LEFT LOWER LEG 03/23/2019 KIM AYALA BORING MACHINE OPERATOR DOUBLE END Ot S86.112A STRAIN MUSC/TEND POST GRP AT LOW LEG LEV 03/23/2019 KIM AYALA BORING MACHINE OPERATOR DOUBLE END Ot X58.XXXA EXPOSURE TO OTHER SPECIFIED FACTORS, [...] SPECIFIED POSTPROCEDURAL STATES 06/04/2019 MARY JO, SHANI PEER FINANCIAL COUNSELOR Ot F17.290 NICOTINE DEPENDENCE, OTHER TOBACCO PRODU 06/04/2019 MARY JO, SHANI PEER FINANCIAL COUNSELOR Ot J06.9 ACUTE UPPER RESPIRATORY INFECTION, UNSPE 06/04/2019 MARY JO, SHANI PEER FINANCIAL COUNSELOR Ot J45.909 UNSPECIFIED ASTHMA, UNCOMPLICATED 06/04/2019 MARY JO, SHANI PEER FINANCIAL COUNSELOR Ot R05 COUGH 06/04/2019 MARY JO, SHANI PEER FINANCIAL COUNSELOR Ot R09.82 POSTNASAL DRIP 06/04/2019 MARY JO, SHANI PEER FINANCIAL COUNSELOR Ot Z98.51 TUBAL LIGATION STATUS 06/09/2019 MARY JO, SHANI PEER FINANCIAL COUNSELOR Ot F17.290 NICOTINE DEPENDENCE, OTHER TOBACCO PRODU 06/09/2019 MARY JO, SHANI PEER FINANCIAL COUNSELOR Ot J06.9 ACUTE UPPER RESPIRATORY INFECTION, UNSPE 06/09/2019 MARY JO, SHANI PEER FINANCIAL COUNSELOR Ot J45.909 UNSPECIFIED ASTHMA, UNCOMPLICATED 06/09/2019 SHANI CAMARGOP Ot R05 COUGH 06/09/2019 SHANI CAMARGOP Ot R09.82 POSTNASAL DRIP 06/09/2019 SHANI CAMARGOP Ot Z98.51 TUBAL LIGATION STATUS 11/08/2019 KIM AYALA APRN Ot F17.290 NICOTINE DEPENDENCE, OTHER TOBACCO PRODU 11/08/2019 KIM AYALA APRN Ot J45.909 UNSPECIFIED ASTHMA, UNCOMPLICATED 11/08/2019 KIM AYALA APRN Ot R07 .1 CHEST PAIN ON BREATHING 11/08/2019 KIM AYALA APRN Ot R07 .9 CHEST PAIN, UNSPECIFIED 11/08/2019 KIM AYALA APRN Ot Z79.899 OTHER GROUP HOME (CURRENT) DRUG THERAPY 11/08/2019 KIM AYALA APRN Ot Z87.19 PERSONAL HISTORY OF OTHER DISEASES OF TH Procedures There is no data. Results Test [...] NRG STATEMENT OF ADEQUACY: NRG INTERPRETATION/RESULT: NRG ATTENDING AMBULATORY CARE: NRG HPV mRNA E6/E7, SUREPATH VIAL Not Detected NOT DETECTED GENERAL CATEGORIZATION: NRG COMMENT: NRG PATHOLOGIST: NRG COMMENT NRG Complete blood count (CBC) with automate [...] 10*3/uL 0.0-0.1 Serum or plasma choriogonadotropin (preg tiear test) detection - 07/20/18 16:08 Serum or [...] 16:58 Bacteria identification in wound by culture [id number] NRG FREE TEXT EXTERNAL RML SENT SENSITIVITY REPORT 1/2 0 13:05 NRG QUANTITY OF GROWTH Rare [...] 21:23 Bacteria identification in wound by culture [id number] NRG FREE TEXT EXTERNAL SUSCEPTIBILITY REPORTED [...] urinalysis with reflex to cultu re - 10/31/19 23:40 Urine color determination ELZBIETA NRG Urine [...] 7-25 CREATININE 0.55 mg/dL 0.50-1.10 eGFR NON-AFR. [place] 122 mL/min/1.73m2 > OR = 60 eGFR [...] MORPHOLOGY - 09/13/19 13:51 CBC MORPHOLOGY NORMAL Complete blood count (CBC) with automate d white blood cell (WBC) differential - 11/07/19 14:57 Blood leukocytes automated count (number/volume) 6.2 10*3/uL 4.3-11.0 Blood erythrocytes automated count (number/volume) 4.36 10*6/uL 4.35-5.85 Venous blood hemoglobin measurement (mass/volume) 8.1 g/dL 11.5-16.0 Blood hematocrit (volume fraction) 28 % 35-52 Automated erythrocyte mean corpuscular volume 64 [ foz_us] 80-99 Automated erythrocyte mean corpuscular h emoglobin (mass per erythrocyte) 19 pg 25-34 Automated erythrocyte mean corpuscular h emoglobin concentration measurement (mass/volume) 29 g/dL 32-36 Automated erythrocyte distribution width ratio 20. 6 % 10.0- 14.5 Automated blood platelet count (count/volume) 435 10*3/uL 130-400 Automated blood platelet mean volume measurement 10.0 [foz_us] 7.4-10.4 Automated blood neutrophils/100 leukocytes 55 % 42-75 Automated blood lymphocytes/100 leukocytes 34 % 12-44 Blood monocytes/100 leukocytes 9 % 0-12 Automated blood eosinophils/100 leukocytes 3 % 0-10 Automated blood basophils/100 leukocytes 1 % 0-10 Blood neutrophils automated count (number/volume) 3.4 10*3 1.8-7.8 Blood lymphocytes automated count (number/volume) 2.1 10*3 1.0-4.0 Blood monocytes automated count (number/volume) 0. 5 10*3 0.0-1.0 Automated eosinophil count 0.2 10*3/uL 0 .0-0.3 Automated blood basophil count (count/volume) 0.0 10*3/uL 0.0-0.1 Comprehensive metabolic panel - 11/07/19 14:57 Serum or plasma sodium measurement (moles/volume) 142 mmol/L 135-145 Serum or plasma potassium measurement (moles/volume) 3.2 mmol/L 3.6-5.0 Serum or plasma chloride measurement (moles/volume) 107 mmol/L 98-107 Carbon dioxide 24 mmol/L 21-32 Serum or plasma anion gap determination (moles/volume) 11 mmol/L 5-14 Serum or plasma urea nitrogen measurement (mass/volume ) 6 mg/dL 7-18 Serum or plasma creatinine measurement (mass/volume) 0.72 mg/dL 0.60-1.30 Serum or plasma urea nitrogen/creatinine mass ratio 8 NRG Serum or plasma creatinine measurement w ith calculation of estimated glomerular filtration rate > NRG Serum or plasma glucose measurement (mass/volume) 85 mg/dL 70-105 Serum or plasma calcium measurement (mass/volume) 8.5 mg/dL 8.5-10.1 Serum or plasma total bilirubin measurement (mass/volu me) 0.3 mg/dL 0.1-1.0 Serum or plasma alkaline phosphatase miesha surement (enzymatic activity/volume) 64 U/L 40-136 Serum or plasma aspartate aminotransfera se measurement (enzymatic activity/volume) 14 U/L 5-34 Serum or plasma alanine aminotransferase measurement (enzymatic activity/volume) 8 U/L 0-55 Serum or plasma protein measurement (mass/volume) 8.0 g/dL 6.4-8.2 Serum or plasma albumin measurement (mass/volume) 4.0 g/dL 3.2-4.5 CALCIUM CORRECTED 8.5 mg/dL 8.5-10.1 Fibrin D-dimer FEU measurement in platel et poor plasma (mass/volume) - 11/07/19 14:57 Fibrin D-dimer FEU measurement in platelet poor plasma (mass/volume) 0.67 ug/mL 0.00-0.49 PT panel in platelet poor plasma by coag ulation assay - 11/07/19 14:57 Prothrombin time (PT) in platelet poor plasma by coagu lation assay 14.2 s 12.2-14.7 INR in platelet poor plasma or blood by coagulation as say 1.1 0.8-1.4 Activated partial thromboplastin time (a PTT) in platelet poor plasma bycoagulation assay - 11/07/19 14:57 Activated partial thromboplastin time (a PTT) in platelet poor plasma bycoagulation assay 33 s 24-35 Magnesium - 11/07/19 14:57 Magnesium 1.8 mg/dL 1.6-2.4 Serum or plasma troponin i.cardiac measu rement (mass/volume) - 11/07/19 14:57 Serum or plasma troponin i.cardiac measurement (mass/v olume) < ng/mL <0.028 Myoglobin, serum - 11/07/19 14:57 Myoglobin, serum 19.1 ng/mL 10.0-92.0 Serum or plasma lithium measurement (mol es/volume) - 11/07/19 14:57 BNP PT 21.2 pg/mL <100.0 Lipase - 11/07/19 14:57 Lipase 15 U/L 8-78 Serum or plasma C reactive protein measu rement (mass/volume) - 11/07/19 14:57 Serum or plasma C reactive protein measurement (mass/v olume) 1.03 mg/dL 0.00-0.50 Coronavirus SARS-CoV-2 SO 2018 - 0 16:17 Coronavirus Ab [Units/volume] in Serum Negative Negative Complete blood count (CBC) with automate d white blood cell (WBC) differential - 11/12/19 22:30 Blood leukocytes automated count (number/volume) 7.7 10*3/uL 4.3-11.0 Blood erythrocytes automated count (number/volume) 4.26 10*6/uL 4.35-5.85 Venous blood hemoglobin measurement (mass/volume) 7.8 g/dL 11.5-16.0 Blood hematocrit (volume fraction) 27 % 35-52 Automated erythrocyte mean corpuscular volume 62 [ foz_us] 80-99 Automated erythrocyte mean corpuscular h emoglobin (mass per erythrocyte) 18 pg 25-34 Automated erythrocyte mean corpuscular h emoglobin concentration measurement (mass/volume) 29 g/dL 32-36 Automated erythrocyte distribution width ratio 20. 0 % 10.0- 14.5 Automated blood platelet count (count/volume) 476 10*3/uL 130-400 Automated blood platelet mean volume measurement 10.3 [foz_us] 7.4-10.4 Automated blood neutrophils/100 leukocytes 57 % 42-75 Automated blood lymphocytes/100 leukocytes 33 % 12-44 Blood monocytes/100 leukocytes 8 % 0-12 Automated blood eosinophils/100 leukocytes 2 % 0-10 Automated blood basophils/100 leukocytes 0 % 0-10 Blood neutrophils automated count (number/volume) 4.3 10*3 1.8-7.8 Blood lymphocytes automated count (number/volume) 2.5 10*3 1.0-4.0 Blood monocytes automated count (number/volume) 0. 6 10*3 0.0-1.0 Automated eosinophil count 0.2 10*3/uL 0 .0-0.3 Automated blood basophil count (count/volume) 0.0 10*3/uL 0.0-0.1 Encounters ACCT No. Visit Date/Time Discharge Status Pt. Type Provider Facility Loc./Unit Complaint [id number] 09/19/2019 15:30:00 09/19/2019 23:59: 59 CLS Outpatient LIZZETTE LANGETIAN Elise [facility] [id number] 09/13/2019 13:20:00 Document Registration [id number] 07/26/2019 14:45:00 Document Registration [id number] 03/24/2018 10:20:00 Document Registration [id number] 12/05/2017 11:40:00 Document Registration [id number] 11/07/2019 14:43:00 16:31:00 DIS Outpatient KIM AYALA APRN [facility] ER CHEST PAIN [id number] 09/11/2019 20:45:00 23:05:00 DIS Emergency KIM AYALA APRN [facility] ER PAIN IN BOTH SIDES [id number] 06/04/2019 17:33:00 19:28:00 DIS Emergency SHANI CAMARGO [facility] ER SORE THROAT,BODY ACHES, DIZZINESS [id number] 05/03/2019 23:25:00 01:36:00 DIS Emergency WESLEY WARE MD [facility] ER PRESSURE AT CENTER OF C HEST,POSS YEAST INFECTION [id number] 04/01/2019 14:54:00 17:11:00 DIS Emergency DAX MACHADO [facility] ER R ANKLE PAIN [id number] 03/23/2019 16:09:00 17:06:00 DIS Emergency KIM AYALA APRN [facility] ER LEFT LEG PAIN [id number] 03/10/2019 19:04:00 21:35:00 DIS Emergency CINDY YEPEZ MD [facility] ER CHEST PAIN, SOB [id number] 02/05/2019 20:25:00 22:20:00 DIS Emergency KIM AYALA APRN [facility] ER R FINGER PAIN / DIZZY [id number] 07/20/2018 15:49:00 18:36:00 DIS Emergency BRITTA PRAKASH [facility] ER BURNING IN CHEST [id number] 04/28/2018 13:41:00 16:40:00 DIS Emergency BRITTA PRAKASH [facility] ER EAR PAIN;CHEST CONGESTI ON;COUGH [id number] 01/07/2018 11:35:00 15:23:00 DIS Emergency WESLEY WARE MD [facility] ER CHEST PAIN [id number] 12/13/2017 15:50:00 19:32:00 DIS Emergency WESLEY WARE MD [facility] ER ABD PAIN;WRIST PAIN [id number] 11/22/2017 16:59:00 19:22:00 DIS Emergency DAX MACHADO [facility] ER R KNEE PAIN [id number] 09/23/2017 22:32:00 018 01:40:00 DIS Emergency GEE MULLEN, JOSÉ MIGUEL Junior [facility] ER STOMACH PAIN [id number] 11/12/2019 22:39:[address] Emergency JEANIE MULLEN, WESLEY Otero [facility] ER CHEST PAIN
[2019-11-12 23:22] LABS: GLUCOSE 87 MG/DL (70-105)
[2019-11-12 23:23] LABS: BILIRUBIN,TOTAL 0.2 MG/DL (0.1-1.0); CARBON DIOXIDE 23 MMOL/L (21-32)
[2019-11-12 23:25] LABS: ALKALINE PHOSPHATASE 68 U/L (40-136); CREATININE SERUM 0.68 MG/DL (0.60-1.30); GFR ESTIMATED > 60
[2019-11-12 23:26] LABS: BUN/CREATININE RATIO 10
[2019-11-12 23:28] LABS: ALANINE AMINOTRANSFERASE 14 U/L (0-55)
[2019-11-13] MEDS ORDERED: ONDA4TAB11 PO (00:04)
[2019-11-13] MEDS ORDERED: OMEP40CA27 PO (00:04)
[2019-11-13] MEDS ORDERED: SUCR1TAB36 PO (00:04)
[2019-11-13 00:07] VITALS: BP 128/75
--- NOTE | 2019-11-13 05:23 | Diagnostic Imaging Report ---
INDICATION: Intermittent chest pain. Epigastric pain. COMPARISON: 11/07/2019 FINDINGS: Frontal and lateral views of the chest demonstrate normal heart size and pulmonary vascularity. The lungs are clear. There are no signs of infiltrate, pleural effusions or pneumothoraces. The visualized osseous structures show no acute abnormalities. IMPRESSION: 1. No acute process. No signs of infiltrates, effusions or pneumothoraces. Dictated by: Dictated on workstation # [id number]
== END 2019-11-13 00:07 | disposition home or self-care (01) ==
LOC: EDUNIT# 22:37 → ER 22:39
DX: J40 Bronchitis, not specified as acute or chronic (principal); D50.9 Iron deficiency anemia, unspecified; K21.9 Gastro-esophageal reflux disease without esophagitis; F17.210 Nicotine dependence, cigarettes, uncomplicated; F17.290 Nicotine dependence, other tobacco product, uncomplicated; Z20.828 Contact with and (suspected) exposure to other viral communicable diseases
CPT/HCPCS: 36415; 71046; 80053; 84484; 85025; 86141

== ENCOUNTER 2019-12-21 21:45 | Emergency (ER) | payer MEDICAID ==
[~2019-12-21] VITALS: Ht 145 cm; Wt 92.9 kg
[~2019-12-21 21:45] MED LIST changes: +ONDA4TAB11 PO
--- OUTSIDE RECORDS SUMMARY | 2019-12-21 21:52 | XMS REPORT | Continuity of Care Document ---
Author Organization Unknown Address Unknown Phone Unavailable Allergies Active Description Code Type Severity Reaction Onset Reported/Identified Relationship to Patient Clinical Status Yes No Known Drug Allergies [id number] Drug Allergy Unknown N/A 03/10/2019 Medications There [...] J06.9 ACUTE UPPER RESPIRATORY INFECTION, UNSPE 04/28/2018 AEDLINE PRAKASHIS Ot J45.909 UNSPECIFIED ASTHMA, UNCOMPLICATED 04/28/2018 [...] OTHER SPECIFIED POSTPROCEDURAL STATES 02/05/2019 KIM AYALA EMERGENCY SPECIALIST Ot F17.290 NICOTINE DEPENDENCE, OTHER TOBACCO PRODU 02/05/2019 KIM AYALA APRN Ot J45.909 UNSPECIFIED ASTHMA, UNCOMPLICATED 02/05/2019 KIM AYALA EMERGENCY SPECIALIST Ot L02.511 CUTANEOUS ABSCESS OF RIGHT HAND 02/05/2019 KIM AYALA EMERGENCY SPECIALIST Ot M79.644 PAIN IN RIGHT FINGER(S) 02/05/2019 KIM AYALA EMERGENCY SPECIALIST Ot Z98.51 TUBAL LIGATION STATUS 02/10/2019 KIM AYALA APRN Ot F17.290 NICOTINE DEPENDENCE, OTHER TOBACCO PRODU 02/10/2019 KIM AYALA APRN Ot J45.909 UNSPECIFIED ASTHMA, UNCOMPLICATED 02/10/2019 KIM AYALA EMERGENCY SPECIALIST Ot L02.511 CUTANEOUS ABSCESS OF RIGHT HAND 02/10/2019 KIM AYALA EMERGENCY SPECIALIST Ot M79.644 PAIN IN RIGHT FINGER(S) 02/10/2019 [...] J45.909 UNSPECIFIED ASTHMA, UNCOMPLICATED 03/23/2019 KIM AYALA EMERGENCY SPECIALIST Ot M79.662 PAIN IN LEFT LOWER LEG 03/23/2019 KIM AYALA EMERGENCY SPECIALIST Ot S86.112A STRAIN MUSC/TEND POST GRP AT LOW LEG LEV 03/23/2019 KIM AYALA EMERGENCY SPECIALIST Ot X58.XXXA EXPOSURE TO OTHER SPECIFIED FACTORS, [...] SPECIFIED POSTPROCEDURAL STATES 06/04/2019 MARY JO, SHANI RESERVE OFFICER Ot F17.290 NICOTINE DEPENDENCE, OTHER TOBACCO PRODU 06/04/2019 MARY JO, SHANI RESERVE OFFICER Ot J06.9 ACUTE UPPER RESPIRATORY INFECTION, UNSPE 06/04/2019 MARY JO, SHANI RESERVE OFFICER Ot J45.909 UNSPECIFIED ASTHMA, UNCOMPLICATED 06/04/2019 MARY JO, SHANI RESERVE OFFICER Ot R05 COUGH 06/04/2019 MARY JO, SHANI RESERVE OFFICER Ot R09.82 POSTNASAL DRIP 06/04/2019 MARY JO, SHANI RESERVE OFFICER Ot Z98.51 TUBAL LIGATION STATUS 06/09/2019 MARY JO, SHANI RESERVE OFFICER Ot F17.290 NICOTINE DEPENDENCE, OTHER TOBACCO PRODU 06/09/2019 MARY JO, SAHNI RESERVE OFFICER Ot J06.9 ACUTE UPPER RESPIRATORY INFECTION, UNSPE 06/09/2019 MARY JO, SHANI RESERVE OFFICER Ot J45.909 UNSPECIFIED ASTHMA, UNCOMPLICATED 06/09/2019 SHANI CAMARGO RESERVE OFFICER Ot R05 COUGH 06/09/2019 SHANI CAMARGOP Ot R09.82 POSTNASAL DRIP 06/09/2019 SHANI CAMARGOP Ot Z98.51 TUBAL LIGATION STATUS 11/07/2019 AYALAKIM APRN Ot F17.290 NICOTINE DEPENDENCE, OTHER TOBACCO PRODU 11/07/2019 AYALA, KIM Otero EMERGENCY SPECIALIST Ot J45.909 UNSPECIFIED ASTHMA, UNCOMPLICATED 11/07/2019 AYALA, KIM Otero EMERGENCY SPECIALIST Ot R07 .1 CHEST PAIN ON BREATHING 11/07/2019 AYALA, KIM Otero EMERGENCY SPECIALIST Ot R07 .9 CHEST PAIN, UNSPECIFIED 11/07/2019 AYALA, KIM Otero EMERGENCY SPECIALIST Ot Z79.899 OTHER SKILLED NURSING (CURRENT) DRUG THERAPY 11/07/2019 AYALA, KIM Otero APRN Ot Z87.19 PERSONAL HISTORY OF OTHER DISEASES OF 11/08/2019 KIM AYALA EMERGENCY SPECIALIST Ot F17.290 NICOTINE DEPENDENCE, OTHER TOBACCO PRODU 11/08/2019 AYALAKIM EMERGENCY SPECIALIST Ot J45.909 UNSPECIFIED ASTHMA, UNCOMPLICATED 11/08/2019 AYALA, KIM Otero EMERGENCY SPECIALIST Ot R07 .1 CHEST PAIN ON BREATHING 11/08/2019 AYALA, KIM Otero EMERGENCY SPECIALIST Ot R07 .9 CHEST PAIN, UNSPECIFIED 11/08/2019 AYALA, KIM Otero APRN Ot Z79.899 OTHER C D REACTOR OPERATOR (CURRENT) DRUG THERAPY 11/08/2019 AYALA, KIM Otero EMERGENCY SPECIALIST Ot Z87.19 PERSONAL HISTORY OF OTHER DISEASES OF 11/13/2019 WESLEY AWRE MD Ot D50. 9 IRON DEFICIENCY ANEMIA, UNSPECIFIED 11/13/2019 WESLEY WARE MD Ot F17.210 NICOTINE DEPENDENCE, CIGARETTES, UNCOMPL 11/13/2019 WESLEY WARE MD Ot F17.290 NICOTINE DEPENDENCE, OTHER TOBACCO PRODU 11/13/2019 WESLEY WARE MD, Ot J40 BRONCHITIS, NOT SPECIFIED ACUTE OR CH 11/13/2019 WESLEY WARE MD Ot K21. 9 GASTRO-ESOPHAGEAL REFLUX DISEASE WITHOUT 11/13/2019 WESLEY WARE MD Ot R09. 1 PLEURISY 11/13/2019 WESLEY WARE MD Ot Z20.828 CONTACT W AND EXPOSURE TO OTH VIRAL COMM 11/18/2019 WESLEY WARE MD Ot D50. 9 IRON DEFICIENCY ANEMIA, UNSPECIFIED 11/18/2019 JEANIE MULLEN, WESLEY Otero Ot F17.210 NICOTINE DEPENDENCE, CIGARETTES, UNCOMPL 11/18/2019 WESLEY WARE MD Ot F17.290 NICOTINE DEPENDENCE, OTHER TOBACCO PRODU 11/18/2019 WESLEY WARE MD, Ot J40 BRONCHITIS, NOT SPECIFIED ACUTE OR CH 11/18/2019 WESLEY WARE MD Ot K21. 9 GASTRO-ESOPHAGEAL REFLUX DISEASE WITHOUT 11/18/2019 WESLEY WARE MD Ot R09. 1 PLEURISY 11/18/2019 WESLEY WARE MD, Ot Z20.828 CONTACT W AND EXPOSURE TO OTH VIRAL COMM 12/05/2019 KIM AYALA APRN Ot F17.290 NICOTINE DEPENDENCE, OTHER TOBACCO PRODU 12/05/2019 KIM AYALA APRN Ot J45.909 UNSPECIFIED ASTHMA, UNCOMPLICATED 12/05/2019 KIM AYALA APRN Ot R07 .1 CHEST PAIN ON BREATHING 12/05/2019 KIM AYALA APRN Ot R07 .9 CHEST PAIN, UNSPECIFIED 12/05/2019 KIM AYALA APRN Ot Z20.828 CONTACT W AND EXPOSURE TO OTH VIRAL COMM 12/05/2019 KIM AYALA APRN Ot Z79.899 OTHER C D REACTOR OPERATOR (CURRENT) DRUG THERAPY 12/05/2019 KIM AYALA APRN Ot Z87.19 PERSONAL HISTORY [...] NRG STATEMENT OF ADEQUACY: NRG INTERPRETATION/RESULT: NRG INSPECTOR LINE: NRG HPV mRNA E6/E7, SUREPATH VIAL Not [...] 16:58 Bacteria identification in wound by culture [id number] NRG FREE TEXT EXTERNAL RML SENT [...] 21:23 Bacteria identification in wound by culture [id number] NRG FREE TEXT EXTERNAL SUSCEPTIBILITY REPORTED [...] 7-25 CREATININE 0.55 mg/dL 0.50-1.10 eGFR NON-AFR. SAO TOMEAN 122 mL/min/1.73m2 > OR = 60 eGFR [...] mg/dL 0.00-0.50 Coronavirus SARS-CoV-2 SO 2018 - 05/06/2 0 16:17 Coronavirus Ab [Units/volume] in Serum [...] 0.0 10*3/uL 0.0-0.1 Comprehensive metabolic panel - 11/12/19 22:30 Serum or plasma sodium measurement (moles/volume) 139 mmol/L 135-145 Serum or plasma potassium measurement (moles/volume) 3.7 mmol/L 3.6-5.0 Serum or plasma chloride measurement (moles/volume) 106 mmol/L 98-107 Carbon dioxide 23 mmol/L 21-32 Serum or plasma anion gap determination (moles/volume) 10 mmol/L 5-14 Serum or plasma urea nitrogen measurement (mass/volume ) 7 mg/dL 7-18 Serum or plasma creatinine measurement (mass/volume) 0.68 mg/dL 0.60-1.30 Serum or plasma urea nitrogen/creatinine mass ratio 10 NRG Serum or plasma creatinine measurement w ith calculation of estimated glomerular filtration rate > NRG Serum or plasma glucose measurement (mass/volume) 87 mg/dL 70-105 Serum or plasma calcium measurement (mass/volume) 8.8 mg/dL 8.5-10.1 Serum or plasma total bilirubin measurement (mass/volu me) 0.2 mg/dL 0.1-1.0 Serum or plasma alkaline phosphatase miesha surement (enzymatic activity/volume) 68 U/L 40-136 Serum or plasma aspartate aminotransfera se measurement (enzymatic activity/volume) 28 U/L 5-34 Serum or plasma alanine aminotransferase measurement (enzymatic activity/volume) 14 U/L 0-55 Serum or plasma protein measurement (mass/volume) 8.0 g/dL 6.4-8.2 Serum or plasma albumin measurement (mass/volume) 3.9 g/dL 3.2-4.5 CALCIUM CORRECTED 8.9 mg/dL 8.5-10.1 Serum or plasma troponin i.cardiac measu rement (mass/volume) - 11/12/19 22:30 Serum or plasma troponin i.cardiac measurement (mass/v olume) < ng/mL <0.028 Serum or plasma C reactive protein measu rement (mass/volume) - 11/12/19 22:30 Serum or plasma C reactive protein measurement (mass/v olume) 1.28 mg/dL 0.00-0.50 CULTURE, URINE - 11/14/19 14:54 CULTURE, URINE, ROUTINE SEE NOTE NRG CULTURE, GENITAL - 11/14/19 14:54 CULTURE, GENITAL SEE NOTE NRG Encounters ACCT No. Visit Date/Time Discharge Status Pt. Type Provider Facility Loc./Unit Complaint [id number] 11/22/2019 16:30:00 11/22/2019 23:59: 59 CLS Outpatient ZAID LANGE [facility] [id number] 11/14/2019 14:05:00 Document Registration [id number] 09/13/2019 13:20:00 Document Registration [id number] 07/26/2019 14:45:00 Document Registration [id number] 03/24/2018 10:20:00 Document Registration [id number] 12/05/2017 11:40:00 Document Registration [id number] 11/12/2019 22:39:00 00:07:00 DIS Emergency WESLEY WARE MD [facility] ER CHEST PAIN [id number] 11/07/2019 14:43:00 16:31:00 DIS Outpatient KIM AYALA APRN [facility] ER CHEST PAIN [id number] 09/11/2019 20:45:00 23:05:00 DIS Emergency KIM AYALA APRN [facility] ER PAIN IN BOTH SIDES [id number] 06/04/2019 17:33:00 19:28:00 DIS Emergency SHANI CAMARGO [facility] ER SORE THROAT,BODY ACHES, DIZZINESS [id number] 05/03/2019 23:25:00 01:36:00 DIS Emergency WESLEY WARE MD [facility] ER PRESSURE AT CENTER OF C HEST,POSS YEAST INFECTION [id number] 04/01/2019 14:54:00 17:11:00 DIS Emergency DAX MACHADO [facility] ER R ANKLE PAIN [id number] 03/23/2019 16:09:00 17:06:00 DIS Emergency KIM AYALA APRN [facility] ER LEFT LEG PAIN [id number] 03/10/2019 19:04:00 21:35:00 DIS Emergency CINDY YEPEZ MD [facility] ER CHEST PAIN, SOB [id number] 02/05/2019 20:25:00 22:20:00 DIS Emergency KIM AYALA APRN [facility] ER R FINGER PAIN / DIZZY [id number] 07/20/2018 15:49:00 18:36:00 DIS Emergency BRITTA PRAKASH [facility] ER BURNING IN CHEST [id number] 04/28/2018 13:41:00 16:40:00 DIS Emergency DWAINBRITTA [facility] ER EAR PAIN;CHEST CONGESTI ON;COUGH [id number] 01/07/2018 11:35:00 15:23:00 DIS Emergency JEANIE MULLEN, WESLEY Otero [facility] ER CHEST PAIN [id number] 12/13/2017 15:50:00 018 19:32:00 DIS Emergency JEANIE MULLEN, WESLEY Otero [facility] ER ABD PAIN;WRIST PAIN [id number] 11/22/2017 16:59:00 018 19:22:00 DIS Emergency DAX MACHADO [facility] ER R KNEE PAIN [id number] 09/23/2017 22:32:00 018 01:40:00 DIS Emergency GEE MULLEN, JOSÉ MIGUEL Junior [facility] ER STOMACH PAIN [id number] 12/21/2019 21:46:[address] Emergency EMETERIO GARCIA DO [facility] ER ABD PAIN, COUGH
[2019-12-21 22:11] LABS: BASOPHILS % (AUTO) 0 % (0-10); EOSINOPHILS # (AUTO) 0.2 10^3/uL (0.0-0.3); EOSINOPHILS % (AUTO) 3 % (0-10); HEMATOCRIT 26 % (35-52); HEMOGLOBIN 7.4 G/DL (11.5-16.0); LYMPHOCYTES % (AUTO) 38 % (12-44); MEAN CORPUSCULAR HEMOGLOBIN 18 PG (25-34); MEAN CORPUSCULAR HGB CONC 29 G/DL (32-36); MEAN CORPUSCULAR VOLUME 63 FL (80-99); MEAN PLATELET VOLUME 10.8 FL (7.4-10.4); MONOCYTES # (AUTO) 0.7 X 10^3 (0.0-1.0); MONOCYTES % (AUTO) 8 % (0-12); NEUTROPHILS % (AUTO) 51 % (42-75); PLATELET COUNT 361 10^3/uL (130-400); RED CELL DISTRIBUTION WIDTH 18.4 % (10.0-14.5); WHITE BLOOD COUNT 7.8 10^3/uL (4.3-11.0)
[2019-12-21] MEDS ORDERED: KETOROLAC 30 MG/ML VIAL IVP ONE (22:15)
[2019-12-21 22:19] LABS: BILIRUBIN,URINE NEGATIVE (NEGATIVE); COLOR,URINE YELLOW; GLUCOSE, URINE (UA) NEGATIVE (NEGATIVE); KETONES,URINE NEGATIVE (NEGATIVE); LEUKOCYTE ESTERASE ,URINE 1+ (NEGATIVE); NITRITE,URINE NEGATIVE (NEGATIVE); PROTEIN,URINE NEGATIVE (NEGATIVE)
--- NOTE | 2019-12-21 22:20 | ED EENT ---
History of Present Illness General Chief Complaint: Oral/Throat Problems Stated Complaint: SORE THROAT Nursing Triage Note: Pt reports sore throat and abdominal pain x4 days. Fever x2 days Source: patient Exam Limitations: no limitations History of Present Illness Date Seen by Provider: Dec 21, 2019 Time Seen by Provider: 22:18 Initial Comments To ER with pain in the lateral aspects of the abdomen on both sides 4 days with intermittent loose stools. Fever 2 days up to 100, sore throat. No vomiting. No cough no shortness of breath. Travels for work Timing/Duration: other Severity: moderate Associated Symptoms: fever, sore throat Allergies and Home Medications Allergies Coded Allergies: No Known Drug Allergies (Unverified , 03/10/19) Home Medications Omeprazole 40 Mg Capsule.dr, 40 MG PO DAILY Prescribed by: WESLEY WARE on 11/13/19 0004 Ondansetron 4 Mg Tab.rapdis, 4 MG PO Q6H PRN for NAUSEA/VOMITING Prescribed by: WESLEY WARE on 11/13/193 Sucralfate 1 Gm Tablet, 1 GM PO QIDACHS Prescribed by: WESLEY WARE on 11/13/19 0004 Patient Home Medication List Home Medication List Reviewed: Yes Review of Systems Review of Systems Constitutional: see HPI Eyes: No Symptoms Reported Ears: No Symptoms Reported Nose: no symptoms reported Mouth: no symptoms reported Throat: no symptoms reported Respiratory: no symptoms reported Cardiovascular: no symptoms reported Musculoskeletal: no symptoms reported Skin: no symptoms reported Neurological: No Symptoms Reported Hematologic/Lymphatic: No Symptoms Reported Immunological/Allergic: no symptoms reported Past Qsamfxt-Nonlgf-Wnozcf Hx Patient Social History Alcohol Use: Occasionally Uses Recreational Drug Use: No Type Used: Cigarettes, Electronic/Vapor, Smokeless Tobacco 2nd Hand Smoke Exposure: Yes Recent Foreign Travel: No Contact w/Someone Who Travel: No Recent Infectious Disease Expo: No Recent Hopitalizations: No Immunizations Up To Date Tetanus Booster (TDap): Less than 5yrs Seasonal Allergies Seasonal Allergies: No Past Medical History Surgeries: Yes (HERNIA) Abdominal, Section, Tubal Ligation Respiratory: Yes Asthma Cardiac: No 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 pylori) Gastroesophageal Reflux, Ulcer Musculoskeletal: No Endocrine: No HEENT: No Cancer: No Psychosocial: No Integumentary: No Blood Disorders: No Family Medical History No Pertinent Family Hx Physical Exam Vital Signs Vital Signs - First Documented 12/21/19 21:55 Temp 36.8 Pulse 74 Resp 16 B/P (MAP) 136/86 (103) Pulse Ox 100 O2 Delivery Room Air Height, Weight, BMI Height: 4'9.00" Weight: 205lbs. oz. 92.534449zg; 44.00 BMI Method:Stated General Appearance: WD/WN, no apparent distress Eyes: bilateral eye normal inspection, bilateral eye PERRL, bilateral eye EOMI Ears: bilateral ear auricle normal, bilateral ear canal normal, bilateral ear TM normal Mouth/Throat: other (pharyngeal erythema) Neck: non-tender, full range of motion Respiratory: normal breath sounds, no respiratory distress, no accessory muscle use Gastrointestinal: normal bowel sounds, soft Neurologic/Psychiatric: alert, normal mood/affect, oriented x 3 Skin: normal color, warm/dry Progress/Results/Core Measures Results/Orders Lab Results Laboratory Tests Test 12/21/19 21:53 12/21/19 21:57 12/21/19 22:14 Range/Units Serum Test, Qualitative NEGATIVE NEGATIVE White Blood Count 7.8 4.3-11.0 10^3/uL Red Blood Count 4.05 L 4.35-5.85 10^6/uL Hemoglobin 7.4 L 11.5-16.0 G/DL Hematocrit 26 L 35-52 % Mean Corpuscular Volume 63 L 80-99 FL Mean Corpuscular Hemoglobin 18 L 25-34 PG Mean Corpuscular Hemoglobin Concent 29 L 32-36 G/DL Red Cell Distribution Width 18.4 H 10.0-14.5 % Platelet Count 361 130-400 10^3/uL Mean Platelet Volume 10.8 H 7.4-10.4 FL Neutrophils (%) (Auto) 51 42-75 % Lymphocytes (%) (Auto) 38 12-44 % Monocytes (%) (Auto) 8 0-12 % Eosinophils (%) (Auto) 3 0-10 % Basophils (%) (Auto) 0 0-10 % Neutrophils # (Auto) 4.0 1.8-7.8 X 10^3 Lymphocytes # (Auto) 3.0 1.0-4.0 X 10^3 Monocytes # (Auto) 0.7 0.0-1.0 X 10^3 Eosinophils # (Auto) 0.2 0.0-0.3 10^3/uL Basophils # (Auto) 0.0 0.0-0.1 10^3/uL Sodium Level 140 135-145 MMOL/L Potassium Level 3.1 L 3.6-5.0 MMOL/L Chloride Level 107 98-107 MMOL/L Carbon Dioxide Level 23 21-32 MMOL/L Anion Gap 10 5-14 MMOL/L Blood Urea Nitrogen 8 7-18 MG/DL Creatinine 0.66 0.60-1.30 MG/DL Estimat Glomerular Filtration Rate > 60 BUN/Creatinine Ratio 12 Glucose Level 92 70-105 MG/DL Calcium Level 8.6 8.5-10.1 MG/DL Corrected Calcium 8.7 8.5-10.1 MG/DL Total Bilirubin 0.2 0.1-1.0 MG/DL Aspartate Amino Transf (AST/SGOT) 15 5-34 U/L Alanine Aminotransferase (ALT/SGPT) 9 0-55 U/L Alkaline Phosphatase 64 40-136 U/L Total Protein 7.9 6.4-8.2 GM/DL Albumin 3.9 3.2-4.5 GM/DL Monoscreen NEGATIVE NEGATIVE Group A Streptococcus Screen NEGATIVE NEGATIVE Urine Color YELLOW Urine Clarity SL CLOUDY Urine pH 6.0 5-9 Urine Specific [place] >=1.030 1.016-1.022 Urine Protein NEGATIVE NEGATIVE Urine Glucose (UA) NEGATIVE NEGATIVE Urine Ketones NEGATIVE NEGATIVE Urine Nitrite NEGATIVE NEGATIVE Urine Bilirubin NEGATIVE NEGATIVE Urine Urobilinogen 4.0 < = 1.0 MG/DL Urine Leukocyte Esterase 1+ H NEGATIVE Urine RBC (Auto) NEGATIVE NEGATIVE Urine RBC NONE /HPF Urine WBC 10-25 H /HPF Urine Squamous Epithelial Cells 5-10 /HPF Urine Crystals NONE /LPF Urine Bacteria MODERATE H /HPF Urine Casts NONE /LPF Urine Mucus MODERATE H /LPF Urine Culture Indicated YES My Orders Orders - KIM AYALA APRN Rapid Strep A Screen (12/21/19 22:01) Coronavirus Sars-Cov-2 So 2018 (12/21/19 22:01) Cbc With Automated Diff (12/21/19 22:01) Monotest (12/21/19 22:01) Ua Culture If Indicated (12/21/19 22:12) Hcg,Qualitative Serum (12/21/19 22:12) Comprehensive Metabolic Panel (12/21/19 22:12) Ketorolac Injection (Toradol Injection) (12/21/19 22:15) Urine Culture (12/21/19 22:14) Ceftriaxone For Im Use (Rocephin For Im (12/21/19 22:45) Medications Given in ED Current Medications Medications Dose Ordered Sig/Giana Route Start Time Stop Time Status Last Admin Dose Admin Ketorolac Tromethamine 15 mg ONCE ONCE IVP 12/21/19 22:15 12/21/19 22:17 DC 12/21/19 22:23 15 MG Vital Signs/I&O 12/21/19 21:55 Temp 36.8 Pulse 74 Resp 16 B/P (MAP) 136/86 (103) Pulse Ox 100 O2 Delivery Room Air Blood Pressure Mean: 103 Departure Impression Primary Impression: Urinary tract infection Additional Impression: Viral syndrome Disposition: 01 HOME, SELF-CARE Condition: Stable Departure-Patient Inst. Decision time for Depature: 22:33 Referrals: [facility] (PCP/Family) Primary Care Physician Patient Instructions: Urinary Tract Infection, Adult (DC), Viral Syndrome (DC) Add. Discharge Instructions: 1. Antibiotics as directed. Return to ER for any concerns. Go home quarantined until you're Covid 19 results come back which will typically be about 24-48 hours. Also, you are anemic, your hemoglobin is 7.4. I have sent and an iron supplement for you to take. It is very important that she take that. All discharge instructions reviewed with patient and/or family. Voiced understanding. Scripts Ferrous Sulfate (Feosol) 325 Mg Tablet 325 MG PO DAILY, #30 TAB Prov: KIM AYALA [employer] 12/21/19 Cefuroxime Axetil (Cefuroxime) 250 Mg Tablet 250 MG PO BID, #10 TAB Prov: KIM AYALA [employer] 12/21/19 KIM AYALA [employer] Dec 21, 2019 22:20
[2019-12-21 22:21] LABS: ALBUMIN 3.9 GM/DL (3.2-4.5)
[2019-12-21 22:22] LABS: CHLORIDE 107 MMOL/L (98-107); POTASSIUM 3.1 MMOL/L (3.6-5.0); SODIUM 140 MMOL/L (135-145)
[2019-12-21 22:23] LABS: CALCIUM 8.6 MG/DL (8.5-10.1)
[2019-12-21 22:24] LABS: GLUCOSE 92 MG/DL (70-105); TOTAL PROTEIN 7.9 GM/DL (6.4-8.2)
[2019-12-21 22:25] LABS: CARBON DIOXIDE 23 MMOL/L (21-32)
[2019-12-21 22:26] LABS: BILIRUBIN,TOTAL 0.2 MG/DL (0.1-1.0)
[2019-12-21 22:26] LABS: BACTERIA,URINE MODERATE /HPF; CLARITY,URINE SL CLOUDY
[2019-12-21 22:27] LABS: ALKALINE PHOSPHATASE 64 U/L (40-136)
[2019-12-21 22:28] LABS: CREATININE SERUM 0.66 MG/DL (0.60-1.30); GFR ESTIMATED > 60
[2019-12-21 22:29] LABS: BUN/CREATININE RATIO 12
[2019-12-21 22:30] LABS: ALANINE AMINOTRANSFERASE 9 U/L (0-55)
[2019-12-21] MEDS ORDERED: CEFU250T80 PO (22:34)
[2019-12-21] MEDS ORDERED: FERR-65 PO (22:34)
--- NOTE | 2019-12-21 22:41 | NUR ---
COVID swab collected [id number]
[2019-12-21] MEDS ORDERED: cefTRIAXone 1,000 MG/2.86 ml vial (IM ONLY) IM SCH (22:45)
[2019-12-21] MEDS ORDERED: LIDOCAINE 1% INJ 20 ML 20 ML VIAL INJ ONE (22:45)
[2019-12-21] MEDS ORDERED: HYDROcodone/APAP 5 MG/325 MG (LORTAB) TAB PO ONE (22:45)
[2019-12-21 23:18] VITALS: BP 126/64
--- NOTE | 2019-12-21 23:29 | NUR ---
Pt given written discharge instructions, pt verbalizes understanding. Unable to get signature page to print.
== END 2019-12-21 23:31 | disposition home or self-care (01) ==
LOC: EDUNIT# 21:45 → ER 21:46
DX: N39.0 Urinary tract infection, site not specified (principal); B34.9 Viral infection, unspecified; K21.9 Gastro-esophageal reflux disease without esophagitis; Z20.828 Contact with and (suspected) exposure to other viral communicable diseases; Z77.22 Contact with and (suspected) exposure to environmental tobacco smoke (acute) (chronic)
CPT/HCPCS: 80053; 81000; 84703; 85025; 86308; 87088; 87430; 99285; U0002; 36415; 87635

== ENCOUNTER 2019-12-31 17:18 | Emergency (ER) | payer MEDICAID ==
[~2019-12-31] VITALS: Ht 149 cm; Wt 97.0 kg
[~2019-12-31 17:18] MED LIST changes: +FERR-65 PO
[2019-12-31 17:38] LABS: BILIRUBIN,URINE NEGATIVE (NEGATIVE); CLARITY,URINE CLEAR; COLOR,URINE YELLOW; GLUCOSE, URINE (UA) NEGATIVE (NEGATIVE); KETONES,URINE NEGATIVE (NEGATIVE); LEUKOCYTE ESTERASE ,URINE NEGATIVE (NEGATIVE); NITRITE,URINE NEGATIVE (NEGATIVE); PH,URINE 5.5 (5-9); PROTEIN,URINE 1+ (NEGATIVE)
[2019-12-31 17:45] LABS: BACTERIA,URINE FEW /HPF; RBC,URINE RARE /HPF; SQUAMOUS EPITHELIAL CELL,UR 0-2 /HPF
--- NOTE | 2019-12-31 18:03 | ED General ---
General Chief Complaint: Back Problems Stated Complaint: R SIDE/BACK PAIN Nursing Triage Note: PT C/O OF R SIDED LOWER BACK PAIN. NO TENDERNESS TO PALP, DENIES RADIATION TO GROIN, NO URINARY SX. STATES SHE LIFTS ALOT FOR WORK AND THAT EXACERBATES THE PAIN. Nursing Sepsis Screen: No Definite Risk Source of Information: Patient Exam Limitations: No Limitations (MIKE SOLORZANO,MED STUDENT) History of Present Illness Date Seen by Provider: Dec 31, 2019 Time Seen by Provider: 17:40 Initial Comments Ms. Echols is a 34 year old female that presents to the emergency department this afternoon with complaints of right flank pain. She states the pain began around 2 weeks ago and has been progressively worsening. She denies any injury at the onset of pain. She describes the pain as a cramping/stab that is a 10/10 on the pain scale and radiates to her left flank. The pain is worse with movement specifically squatting. She denies any urinary symptoms, vaginal discharge, shortness of breath, fever, or constipation. She does admit to loose stools the past few days. She also admits to chest pain that began this morning and is located midchest. It began while she was at work this morning and is worsened with physical exertion (using a ladder at work). LMP was 11/28/2019. She is sexually active and is not using any form of control. She was previously seen in the ED (12/20) for similar symptoms and was diagnosed with a UTI and anemia (hgb 7.4). She was sent home on iron and cefuroxime. She states she took the antibiotic for 3 days before being seen at [facility] and giving a urine sample which she states came back clear and was told to stop the antibiotic. She was swabbed and COVID negative at that visit. (MIKE SOLORZANO,MED STUDENT) Initial Comments Here with a variety of complaints but mostly related to left-sided abdominal and flank pain that moves to the right side has been intermittent over the last 2 weeks. Worse on the right currently than the left. Denies vaginal discharge. Does have heavy menstrual periods which may account for her chronic low hemoglobin. She has been following at the clinic for that. Reports watery stools recently. Denies dysuria. He has some chest discomfort that seems to be more epigastric. Timing/Duration: Other (2 weeks) Severity: Moderate Associated Systoms: No Cough, No Fever/Chills, No Nausea/Vomiting, No Shortness of Air, No Weakness (CINDY YEPEZ MD) Allergies and Home Medications Allergies Coded Allergies: No Known Drug Allergies (Unverified , 03/10/19) Home Medications Cefuroxime Axetil 250 Mg Tablet, 250 MG PO BID Prescribed by: KIM AYALA on 12/21/192233 Ferrous Sulfate 325 Mg Tablet, 325 MG PO DAILY Prescribed by: KIM AYALA on 12/21/192233 Omeprazole 40 Mg Capsule.dr, 40 MG PO DAILY Prescribed by: WESLEY WARE on 11/13/193 Ondansetron 4 Mg Tab.rapdis, 4 MG PO Q6H PRN for NAUSEA/VOMITING Prescribed by: WESLEY WARE on 11/13/193 Sucralfate 1 Gm Tablet, 1 GM PO QIDACHS Prescribed by: WESLEY WARE on 11/13/193 Patient Home Medication List Home Medication List Reviewed: Yes (CINDY YEPEZ MD) Review of Systems Review of Systems Constitutional: No chills, No fever Respiratory: No cough, No short of breath Cardiovascular: chest pain Gastrointestinal: No abdominal pain; diarrhea; No nausea, No vomiting Genitourinary: No discharge, No dysuria, No frequency, No hematuria, No incontinence Musculoskeletal: back pain (R flank pain) (MIKE SOLORZANO MED STUDENT) All Other Systems Reviewed Negative Unless Noted: Yes (CINDY YEPEZ MD) Past Qsefoqw-Woidtw-Thpuza Hx Past Med/Social Hx: Reviewed Nursing Past Med/Soc Hx (CINDY YEPEZ MD) Patient Social History Alcohol Use: Occasionally Uses Recreational Drug Use: No Type Used: Cigarettes, Electronic/Vapor, Smokeless Tobacco 2nd Hand Smoke Exposure: Yes Recent Foreign Travel: No Contact w/Someone Who Travel: No Recent Infectious Disease Expo: No Recent Hopitalizations: No Physical Abuse: No Sexual Abuse: No Mistreated: No Fear: No (MIKE SOLORZANO MED STUDENT) Immunizations Up To Date Tetanus Booster (TDap): Less than 5yrs (MIKE SOLORZANO MED STUDENT) Seasonal Allergies Seasonal Allergies: No (MIKE SOLORZANO MED STUDENT) Past Medical History Surgeries: Yes (HERNIA) Abdominal, Section, Tubal Ligation Respiratory: Yes Asthma Cardiac: No 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 pylori) Gastroesophageal Reflux, Ulcer Musculoskeletal: No Endocrine: No HEENT: No Cancer: No Psychosocial: No Integumentary: No Blood Disorders: No (MIKE SOLORZANO,TIAGO STUDENT) Family Medical History Reviewed Nursing Family Hx (CIDNY YEPEZ MD) No Pertinent Family Hx (MIKE SOLORZANO MED STUDENT) Physical Exam Vital Signs Vital Signs - First Documented 12/31/19 17:38 Temp 36.3 Pulse 87 Resp 16 B/P (MAP) 155/84 (107) Pulse Ox 100 O2 Delivery Room Air (CINDY YEPEZ MD) Vital Signs Capillary Refill : Less Than 3 Seconds (MIKE SOLORZANO MED STUDENT) Height, Weight, BMI Height: 4'9.00" Weight: 205lbs. oz. 92.695232sj; 43.00 BMI Method:Stated (MIKE SOLORZANO,TIAGO STUDENT) General Appearance: WD/WN, Mild Distress HEENT: PERRL/EOMI, Pharynx Normal Neck: Normal Inspection, Non Tender Respiratory: Lungs Clear, Normal Breath Sounds Cardiovascular: Regular Rate, Rhythm, No Murmur Gastrointestinal: Soft, Tenderness (mild left and right lower) Back: Normal Inspection, No CVA Tenderness, No Vertebral Tenderness Extremity: Normal Range of Motion, Non Tender, No Calf Tenderness Neurologic/Psychiatric: Alert, Oriented x3 Skin: Normal Color, Warm/Dry (CINDY YEPEZ MD) Progress/Results/Core Measures Suspected Sepsis Recent Fever Within 48 Hours: No Infection Criteria Present: None New/Unexplained Altered Menta: No Sepsis Screen: No Definite Risk SIRS Temperature: Pulse: 87 Respiratory Rate: 16 Blood Pressure 155 /84 Mean: 107 (MIKE SOLORZANO,TIAGO STUDENT) Results/Orders Lab Results Laboratory Tests Test 12/31/19 17:26 12/31/19 18:03 12/31/19 18:55 Range/Units Urine Color YELLOW Urine Clarity CLEAR Urine pH 5.5 5-9 Urine Specific [place] >=1.030 1.016-1.022 Urine Protein 1+ H NEGATIVE Urine Glucose (UA) NEGATIVE NEGATIVE Urine Ketones NEGATIVE NEGATIVE Urine Nitrite NEGATIVE NEGATIVE Urine Bilirubin NEGATIVE NEGATIVE Urine Urobilinogen 0.2 < = 1.0 MG/DL Urine Leukocyte Esterase NEGATIVE NEGATIVE Urine RBC (Auto) NEGATIVE NEGATIVE Urine RBC RARE /HPF Urine WBC 2-5 /HPF Urine Squamous Epithelial Cells 0-2 /HPF Urine Crystals NONE /LPF Urine Bacteria FEW H /HPF Urine Casts NONE /LPF Urine Mucus MODERATE H /LPF Urine Culture Indicated YES White Blood Count 10.4 4.3-11.0 10^3/uL Red Blood Count 4.12 L 4.35-5.85 10^6/uL Hemoglobin 7.5 L 11.5-16.0 G/DL Hematocrit 26 L 35-52 % Mean Corpuscular Volume 62 L 80-99 FL Mean Corpuscular Hemoglobin 18 L 25-34 PG Mean Corpuscular Hemoglobin Concent 29 L 32-36 G/DL Red Cell Distribution Width 18.6 H 10.0-14.5 % Platelet Count 436 H 130-400 10^3/uL Mean Platelet Volume 10.7 H 7.4-10.4 FL Neutrophils (%) (Auto) 67 42-75 % Lymphocytes (%) (Auto) 23 12-44 % Monocytes (%) (Auto) 7 0-12 % Eosinophils (%) (Auto) 2 0-10 % Basophils (%) (Auto) 0 0-10 % Neutrophils # (Auto) 7.0 1.8-7.8 X 10^3 Lymphocytes # (Auto) 2.4 1.0-4.0 X 10^3 Monocytes # (Auto) 0.7 0.0-1.0 X 10^3 Eosinophils # (Auto) 0.3 0.0-0.3 10^3/uL Basophils # (Auto) 0.0 0.0-0.1 10^3/uL Erythrocyte Sedimentation Rate 62 H 0-20 MM/HR D-Dimer 0.61 H 0.00-0.49 UG/ML Sodium Level 138 135-145 MMOL/L Potassium Level 2.9 L 3.6-5.0 MMOL/L Chloride Level 105 98-107 MMOL/L Carbon Dioxide Level 22 21-32 MMOL/L Anion Gap 11 5-14 MMOL/L Blood Urea Nitrogen 7 7-18 MG/DL Creatinine 0.68 0.60-1.30 MG/DL Estimat Glomerular Filtration Rate > 60 BUN/Creatinine Ratio 10 Glucose Level 92 70-105 MG/DL Calcium Level 8.8 8.5-10.1 MG/DL Corrected Calcium 8.9 8.5-10.1 MG/DL Total Bilirubin 0.2 0.1-1.0 MG/DL Aspartate Amino Transf (AST/SGOT) 14 5-34 U/L Alanine Aminotransferase (ALT/SGPT) 7 0-55 U/L Alkaline Phosphatase 64 40-136 U/L Lactate Dehydrogenase 221 H 125-220 U/L C-Reactive Protein High Sensitivity 1.76 H 0.00-0.50 MG/DL Total Protein 8.0 6.4-8.2 GM/DL Albumin 3.9 3.2-4.5 GM/DL Procalcitonin 0.02 <0.10 NG/ML Serum Test, Qualitative NEGATIVE NEGATIVE (CINDY YEPEZ MD) My Orders Orders - CINDY YEPEZ MD Ondansetron Injection (Zofran Injectio (12/31/19 18:30) Lactated Ringers (Lr 1000 Ml Iv Solution (12/31/19 18:27) Ed Iv/Invasive Line Start (12/31/19 18:27) Ketorolac Injection (Toradol Injection) (12/31/19 18:27) Fibrin Degradation Products (12/31/19 18:44) Procalcitonin (Pct) (12/31/19 18:44) Erythrocyte Sedimentation Rate (12/31/19 18:44) LDH (12/31/19 18:44) Ct Abdomen/Pelvis W (12/31/19 19:19) Coronavirus Sars-Cov-2 So 2018 (12/31/19 19:20) Iohexol Injection (Omnipaque 350 Mg/Ml 1 (12/31/19 19:30) Received Contrast (Hold Metformin- Contr (12/31/19 19:30) Ns (Ivpb) (Sodium Chloride 0.9% Ivpb Bag (12/31/19 19:30) Neis Willy Dna Urine Test (12/31/19 20:26) Chlamydia Trachomatis Urine (12/31/19 20:26) Ceftriaxone For Iv Use (Rocephin For I (12/31/19 20:40) Azithromycin Tablet (Zithromax Tablet) (12/31/19 20:40) Hydrocodone/Apap 5/325 Tablet (Lortab 5 (12/31/19 20:45) Potassium Chloride (Tablet) (K Dur Table (6/29/20 20:45) Ekg Tracing (12/31/19 21:10) (CINDY YEPEZ MD) Medications Given in ED Current Medications Medications Dose Ordered Sig/Giana Route Start Time Stop Time Status Last Admin Dose Admin Acetaminophen/ Hydrocodone Bitart 1 tab ONCE ONCE PO 12/31/19 20:45 12/31/19 20:46 DC 12/31/19 21:11 1 TAB Iohexol 100 ml ONCE ONCE IV 12/31/19 19:30 12/31/19 19:31 DC 12/31/19 19:44 100 ML Ondansetron HCl 4 mg ONCE ONCE IVP 12/31/19 18:30 12/31/19 18:31 DC 12/31/19 19:12 4 MG Potassium Chloride 40 meq ONCE ONCE PO 12/31/19 20:45 12/31/19 20:46 DC 12/31/19 21:09 40 MEQ Sodium Chloride 100 ml ONCE ONCE IV 12/31/19 19:30 12/31/19 19:31 DC 12/31/19 19:44 80 ML (CINDY YEPEZ MD) Vital Signs/I&O 12/31/19 17:38 Temp 36.3 Pulse 87 Resp 16 B/P (MAP) 155/84 (107) Pulse Ox 100 O2 Delivery Room Air (CINDY YEPEZ MD) Vital Signs/I&O Capillary Refill : Less Than 3 Seconds (MIKE SOLORZANO,MED STUDENT) Blood Pressure Mean: 107 Progress Note : Progress Note I have seen and evaluated the patient and agree with above except as indicated. I have directed the plan of care. IV, labs, UA, EKG and CT abdomen and pelvis ordered. LR 1 L bolus and Toradol 30 mg IV ordered. Monitor patient. This didn't help pain. We will get CT abdomen and pelvis after review of labs. Monitor patient. 2114: CT complete. We did do COVID-19 testing due to variety of vague complaints and her travel history. This is pending. I did discuss the case with Dr. Sinclair regarding CT results with increased lymphadenopathy especially in the lower pelvis region. This in the setting of abnormal blood counts will need follow-up and she agrees. The clinical call her for appointment. I discussed with the patient that she also needs to call or make sure that she gets appointment this week but after her COVID-19 testing has resulted. We did add a urine chlamydia and gonorrhea testing and I will treat for that. Rocephin 1 g IV, Zithromax 1 g by mouth and potassium 40 mEq by mouth ordered. Hydrocodone 5/325 one tab by mouth given. We will give continuation prescription of doxycycline and I will write for a few hydrocodone. Patient knows that she needs to be off work and understands quarantine requirements. Discharged home with return precautions. Patient verbalize understanding instructions and agreement with plan. (CINDY YEPEZ MD) ECG Initial ECG Impression Date: Dec 31, 2019 Initial ECG Impression Time: 19:03 Initial ECG Rate: 78 Initial ECG Rhythm: Normal Sinus Initial ECG Impression: Normal Comment Sinus rhythm with normal axis. No evidence of ST elevation SD similar to previous of 11/06/19. Interpreted by me. (CINDY YEPEZ MD) Diagnostic Imaging Diagonstic Imaging: CT Plain Films/CT/US/NM/MRI: abdomen, pelvis Comments [facility] [place] NAME: TARUN ECHOLS [facility] REC#: [id number] PT STATUS: REG ER : 1985 PHYSICIAN: CINDY YEPEZ MD ADMIT DATE: 12/31/19/ER Draft Date of Exam:12/31/19 CT ABDOMEN/PELVIS W PROCEDURE: CT abdomen and pelvis with contrast. TECHNIQUE: Multiple contiguous axial images were obtained through the abdomen and pelvis after administration of intravenous contrast. Auto Exposure Controls were utilized during the CT exam to meet ALARA standards for radiation dose reduction. INDICATION: Right upper quadrant abdominal pain, cough. COMPARISON: 07/20/2018 FINDINGS: Included portions of the lung bases are clear. CT ABDOMEN: Normal appendix is identified. Small bowel loops are nondistended. Note is made of cholelithiasis. There is no gallbladder wall thickening or pericholecystic free fluid. The kidneys, adrenal glands, spleen, pancreas, and liver have a normal CT appearance. There is no loculated fluid collection, free fluid, nor free air within the abdomen. No abnormal mesenteric or retroperitoneal adenopathy is seen. Osseous structures show no acute abnormalities. CT PELVIS: Urinary bladder is grossly unremarkable. There is no loculated fluid collection, free fluid, nor free air within the pelvis. Bilateral inguinal lymph nodes are mildly prominent. Largest lymph node is seen on the left and measures 1.7 x 1.1 cm. This is increased in size compared to 1.1 x 0.8 cm previously. Prominent left iliac chain lymph node is also seen and measures 1.5 x 1.3 cm. This is also increased in size compared to 0.9 x 1 cm on prior exam. Osseous structures show no acute abnormalities. IMPRESSION: 1. Interval progression of mildly prominent bilateral inguinal and left iliac chain adenopathy. Significance in etiology is indeterminate. Underlying lymphoproliferative or lympho-invasive process should be considered. 2. Otherwise, no acute abnormality is seen within the abdomen or pelvis. 3. Cholelithiasis, but no CT evidence of acute cholecystitis. Dictated on workstation # [id number] Dict: 12/31/191958 Trans: 12/31/192012 [facility] [id number] Interpreted by: MOLLY HANCOCK MD Electronically signed by: (CINDY YEPEZ MD) Departure Impression Primary Impression: Pelvic lymphadenopathy Additional Impressions: Lower abdominal pain COVID-19 evaluation Disposition: 01 HOME, SELF-CARE Condition: Stable Departure-Patient Inst. Decision time for Depature: 21:32 (CINDY YEPEZ MD) Referrals: [facility] (PCP/Family) Primary Care Physician Patient Instructions: Lymphadenitis, Severe Abdominal Pain, Adult (DC) Add. Discharge Instructions: All discharge instructions reviewed with patient and/or family. Voiced understanding. Take medications as directed. Clear liquid or light diet for the next 12-24 hours and then advance as tolerated. Drink plenty of fluids and get plenty of rest. You will need to remain on quarantine until test results are noted. If they are negative, you will need to be isolated for 3 days after symptoms resolve. If they are positive, the health department will call you and direct quarantine timeframe. You may take ibuprofen 600 mg every 8 hours as needed for fever or pain. You may take Tylenol/acetaminophen 1000 mg every 8 hours as needed for fever if you are not taking prescribed pain medicine. Do not take both at the same time as they both have acetaminophen in them. Return for worse pain, fever, vomiting, weakness, breathing problems or other concerns as needed. The clinic should call you for appointment for later this week due to the swollen lymph nodes. They will wait for your COVID testing results as you will be seen after your clear from that. Copy Copies To 1: RYLAND SINCLAIR MD [facility],[place],MED STUDENT Dec 31, 2019 18:03 CINDY YEPEZ MD Dec 31, 2019 21:22
[2019-12-31 18:12] LABS: BASOPHILS % (AUTO) 0 % (0-10); EOSINOPHILS # (AUTO) 0.3 10^3/uL (0.0-0.3); EOSINOPHILS % (AUTO) 2 % (0-10); HEMATOCRIT 26 % (35-52); HEMOGLOBIN 7.5 G/DL (11.5-16.0); LYMPHOCYTES # (AUTO) 2.4 X 10^3 (1.0-4.0); LYMPHOCYTES % (AUTO) 23 % (12-44); MEAN CORPUSCULAR HEMOGLOBIN 18 PG (25-34); MEAN CORPUSCULAR HGB CONC 29 G/DL (32-36); MEAN CORPUSCULAR VOLUME 62 FL (80-99); MEAN PLATELET VOLUME 10.7 FL (7.4-10.4); MONOCYTES # (AUTO) 0.7 X 10^3 (0.0-1.0); MONOCYTES % (AUTO) 7 % (0-12); NEUTROPHILS % (AUTO) 67 % (42-75); PLATELET COUNT 436 10^3/uL (130-400); RED CELL DISTRIBUTION WIDTH 18.6 % (10.0-14.5); WHITE BLOOD COUNT 10.4 10^3/uL (4.3-11.0)
[2019-12-31] MEDS ORDERED: LACTATED RINGERS 1,000 ML IV STA (18:27)
[2019-12-31] MEDS ORDERED: KETOROLAC 30 MG/ML VIAL IVP STA (18:27)
[2019-12-31 18:30] LABS: ALBUMIN 3.9 GM/DL (3.2-4.5)
[2019-12-31] MEDS ORDERED: ONDANSETRON 4 MG/2 ML (SDV) Z0FRAN IVP ONE (18:30)
[2019-12-31 18:31] LABS: CHLORIDE 105 MMOL/L (98-107); POTASSIUM 2.9 MMOL/L (3.6-5.0); SODIUM 138 MMOL/L (135-145)
[2019-12-31 18:32] LABS: CALCIUM 8.8 MG/DL (8.5-10.1)
[2019-12-31 18:33] LABS: GLUCOSE 92 MG/DL (70-105)
[2019-12-31 18:34] LABS: CARBON DIOXIDE 22 MMOL/L (21-32)
[2019-12-31 18:35] LABS: BILIRUBIN,TOTAL 0.2 MG/DL (0.1-1.0)
[2019-12-31 18:37] LABS: ALKALINE PHOSPHATASE 64 U/L (40-136); CREATININE SERUM 0.68 MG/DL (0.60-1.30); GFR ESTIMATED > 60
[2019-12-31 18:38] LABS: BUN/CREATININE RATIO 10
[2019-12-31 18:40] LABS: ALANINE AMINOTRANSFERASE 7 U/L (0-55)
[2019-12-31] MEDS ORDERED: NS 100 ML (IVPB) BAG IV ONE (19:30)
[2019-12-31] MEDS ORDERED: IOHEXOL 350 MG/ML 100 ML (OMNIPAQUE 350) VIAL IV ONE (19:30)
[2019-12-31] MEDS ORDERED: HOLD METFORMIN - RECEIVED CONTRAST 20 ML VIAL IV SCH (19:30)
--- NOTE | 2019-12-31 20:14 | Diagnostic Imaging Report ---
PROCEDURE: CT abdomen and pelvis with contrast. TECHNIQUE: Multiple contiguous axial images were obtained through the abdomen and pelvis after administration of intravenous contrast. Auto Exposure Controls were utilized during the CT exam to meet ALARA standards for radiation dose reduction. INDICATION: Right upper quadrant abdominal pain, cough. COMPARISON: 07/20/2018 FINDINGS: Included portions of the lung bases are clear. CT ABDOMEN: Normal appendix is identified. Small bowel loops are nondistended. Note is made of cholelithiasis. There is no gallbladder wall thickening or pericholecystic free fluid. The kidneys, adrenal glands, spleen, pancreas, and liver have a normal CT appearance. There is no loculated fluid collection, free fluid, nor free air within the abdomen. No abnormal mesenteric or retroperitoneal adenopathy is seen. Osseous structures show no acute abnormalities. CT PELVIS: Urinary bladder is grossly unremarkable. There is no loculated fluid collection, free fluid, nor free air within the pelvis. Bilateral inguinal lymph nodes are mildly prominent. Largest lymph node is seen on the left and measures 1.7 x 1.1 cm. This is increased in size compared to 1.1 x 0.8 cm previously. Prominent left iliac chain lymph node is also seen and measures 1.5 x 1.3 cm. This is also increased in size compared to 0.9 x 1 cm on prior exam. Osseous structures show no acute abnormalities. IMPRESSION: 1. Interval progression of mildly prominent bilateral inguinal and left iliac chain adenopathy. Significance in etiology is indeterminate. Underlying lymphoproliferative or lympho-invasive process should be considered. 2. Otherwise, no acute abnormality is seen within the abdomen or pelvis. 3. Cholelithiasis, but no CT evidence of acute cholecystitis. Dictated by: Dictated on workstation # [id number]
--- OUTSIDE RECORDS SUMMARY | 2019-12-31 20:37 | XMS REPORT | Continuity of Care Document ---
Author Organization Unknown Address Unknown Phone Unavailable Allergies Active Description Code Type Severity Reaction Onset Reported/Identified Relationship to Patient Clinical Status Yes No Known Drug Allergies [id number] Drug Allergy Unknown N/A 03/10/2019 Medications There [...] GASTRIC ULCER, UNSP ACUTE OR CHRONIC, 09/29/2017 GEE MULLEN, JOSÉ MIGUEL Junior Ot R10.9 UNSPECIFIED ABDOMINAL PAIN 09/29/2017 JOSÉ [...] DEPENDENCE, CIGARETTES, UNCOMPL 01/09/2018 WESLEY WARE MD J Ot J45.909 UNSPECIFIED ASTHMA, UNCOMPLICATED 01/09/2018 WESLEY [...] PRAKASHIS Ot J45.909 UNSPECIFIED ASTHMA, UNCOMPLICATED 04/28/2018 ADELINE PRAKASHIS Ot Z86.19 PERSONAL HISTORY OF OTHER INFECTIOUS AND 04/28/2018 ADELINE PRAKASHIS Ot Z87.19 PERSONAL HISTORY OF OTHER DISEASES OF TH 04/28/2018 ADELINE PRAKASHIS Ot Z98.51 TUBAL LIGATION STATUS 04/28/2018 DWAIN, BRITTA Ot Z98.890 OTHER SPECIFIED POSTPROCEDURAL STATES 05/01/2018 [...] HISTORY OF OTHER DISEASES OF TH 05/01/2018 BRITTA PRAKASH Ot Z98.51 TUBAL LIGATION STATUS 05/01/2018 ADELINE [...] Ot F17.210 NICOTINE DEPENDENCE, CIGARETTES, UNCOMPL 07/24/2018 PROSPERCRESENCIO BRITTA Ot J45.909 UNSPECIFIED ASTHMA, UNCOMPLICATED 07/24/2018 BRITTA PRAKASH Ot R10.13 EPIGASTRIC PAIN 07/24/2018 BRITTA PRAKASH Ot R11.2 NAUSEA WITH VOMITING, UNSPECIFIED 07/24/2018 BRITTA PRAKASH Ot Z86.19 PERSONAL HISTORY OF OTHER INFECTIOUS AND 07/24/2018 BRITTA PRAKASH Ot Z87.19 PERSONAL HISTORY OF OTHER DISEASES OF TH 07/24/2018 BRITTA PRAKASH Ot Z98.51 TUBAL LIGATION STATUS 07/24/2018 BRITTA PRAKASH Ot Z98.890 OTHER SPECIFIED POSTPROCEDURAL STATES 02/05/2019 KIM AYALA APRN Ot F17.290 NICOTINE DEPENDENCE, OTHER TOBACCO PRODU 02/05/2019 KIM AYALA APRN Ot J45.909 UNSPECIFIED ASTHMA, UNCOMPLICATED 02/05/2019 KIM AYALA SCARF AND ANNEAL OPERATOR Ot L02.511 CUTANEOUS ABSCESS OF RIGHT HAND 02/05/2019 KIM AYALA SCARF AND ANNEAL OPERATOR Ot M79.644 PAIN IN RIGHT FINGER(S) 02/05/2019 KIM AYALA SCARF AND ANNEAL OPERATOR Ot Z98.51 TUBAL LIGATION STATUS 02/10/2019 KIM AYALA APRN Ot F17.290 NICOTINE DEPENDENCE, OTHER TOBACCO PRODU 02/10/2019 KIM AYALA APRN Ot J45.909 UNSPECIFIED ASTHMA, UNCOMPLICATED 02/10/2019 KIM AYALA SCARF AND ANNEAL OPERATOR Ot L02.511 CUTANEOUS ABSCESS OF RIGHT HAND 02/10/2019 KIM AYALA SCARF AND ANNEAL OPERATOR Ot M79.644 PAIN IN RIGHT FINGER(S) 02/10/2019 KIM AYALA SCARF AND ANNEAL OPERATOR Ot Z98.51 TUBAL LIGATION STATUS 03/10/2019 CINDY [...] J45.909 UNSPECIFIED ASTHMA, UNCOMPLICATED 03/23/2019 KIM AYALA SCARF AND ANNEAL OPERATOR Ot M79.662 PAIN IN LEFT LOWER LEG 03/23/2019 KIM AYALA SCARF AND ANNEAL OPERATOR Ot S86.112A STRAIN MUSC/TEND POST GRP AT LOW LEG LEV 03/23/2019 KIM AYALA SCARF AND ANNEAL OPERATOR Ot X58.XXXA EXPOSURE TO OTHER SPECIFIED FACTORS, INI 03/23/2019 KIM AYALA APRN Ot Z98.51 TUBAL LIGATION STATUS 04/01/2019 DAX MACHADO Ot F17.290 NICOTINE DEPENDENCE, OTHER TOBACCO PRODU 04/01/2019 DAX MACHADO Ot J45.909 UNSPECIFIED ASTHMA, UNCOMPLICATED 04/01/2019 DAX MACHADO Ot M25.571 PAIN IN RIGHT ANKLE AND JOINTS OF RIGHT 04/01/2019 DAX MACHADO Ot Z98.51 TUBAL LIGATION STATUS 04/03/2019 LUAN RYDER DAX L Ot F17.290 NICOTINE DEPENDENCE, OTHER TOBACCO PRODU 04/03/2019 LUAN RYDER DAX L Ot J45.909 UNSPECIFIED ASTHMA, UNCOMPLICATED 04/03/2019 LUAN RYDER DAX Bertha Ot M25.571 PAIN IN RIGHT ANKLE AND JOINTS OF RIGHT 04/03/2019 DAX MACHADO L Ot Z98.51 TUBAL LIGATION STATUS 05/04/2019 KOLBY WARE MDUS J Ot J45.909 UNSPECIFIED ASTHMA, UNCOMPLICATED 05/04/2019 JEANIE MULLEN, WESLEY J Ot R10. 13 EPIGASTRIC PAIN 05/04/2019 JEANIE MULLEN, WESLEY J Ot Z87.891 PERSONAL HISTORY OF NICOTINE DEPENDENCE 05/04/2019 KOLBY WARE MDUS J Ot Z98. 51 TUBAL LIGATION STATUS 05/04/2019 JEANIE MULLEN WESLEY J Ot Z98.890 OTHER SPECIFIED POSTPROCEDURAL STATES 05/08/2019 KOLBY WARE MDUS J Ot J45.909 UNSPECIFIED ASTHMA, UNCOMPLICATED 05/08/2019 JEANIE MULLEN, WESLEY J Ot R10. 13 EPIGASTRIC PAIN 05/08/2019 JEANIE MULLEN WESLEY J Ot Z87.891 PERSONAL HISTORY OF NICOTINE DEPENDENCE 05/08/2019 JEANIE MULLEN WESLEY J Ot Z98. 51 TUBAL LIGATION STATUS 05/08/2019 JEANIE MULLEN, WESLEY J Ot Z98.890 OTHER SPECIFIED POSTPROCEDURAL STATES 06/04/2019 MARY JO, SHANI CAUL DRESSER Ot F17.290 NICOTINE DEPENDENCE, OTHER TOBACCO PRODU 06/04/2019 MARY JO, SHANI CAUL DRESSER Ot J06.9 ACUTE UPPER RESPIRATORY INFECTION, UNSPE 06/04/2019 MARY JO, SHANI CAUL DRESSER Ot J45.909 UNSPECIFIED ASTHMA, UNCOMPLICATED 06/04/2019 MARY JO, SHANI CAUL DRESSER Ot R05 COUGH 06/04/2019 MARY JO, SHANI CAUL DRESSER Ot R09.82 POSTNASAL DRIP 06/04/2019 MARY JO, SHANI CAUL DRESSER Ot Z98.51 TUBAL LIGATION STATUS 06/09/2019 MARY JO, SHANI CAUL DRESSER Ot F17.290 NICOTINE DEPENDENCE, OTHER TOBACCO PRODU 06/09/2019 MARY JO, SHANI CAUL DRESSER Ot J06.9 ACUTE UPPER RESPIRATORY INFECTION, UNSPE 06/09/2019 MARY JO, SHANI CAUL DRESSER Ot J45.909 UNSPECIFIED ASTHMA, UNCOMPLICATED 06/09/2019 SHANI CAMARGO CAUL DRESSER Ot R05 COUGH 06/09/2019 MARY JO SHANI CAUL DRESSER Ot R09.82 POSTNASAL DRIP 06/09/2019 MARY JO SHANI CAUL DRESSER Ot Z98.51 TUBAL LIGATION STATUS 09/11/2019 KIM AYALA APRN Ot D50 .9 IRON DEFICIENCY ANEMIA, UNSPECIFIED 09/11/2019 KIM AYALA APRN Ot J45.909 UNSPECIFIED ASTHMA, UNCOMPLICATED 09/11/2019 KIM AYALA APRN Ot R10 .2 PELVIC AND PERINEAL PAIN 09/11/2019 KIM AYALA APRN Ot Z77.22 CNTCT W AND EXPSR TO ENVIRON TOBACCO SMO 09/11/2019 KIM AYALA APRN Ot Z79.52 HALF-WAY (CURRENT) USE OF SYSTEMIC STER 11/07/2019 KIM AYALA APRN Ot F17.290 NICOTINE DEPENDENCE, OTHER TOBACCO PRODU 11/07/2019 KIM AYALA APRN Ot J45.909 UNSPECIFIED ASTHMA, UNCOMPLICATED 11/07/2019 KIM AYALA APRN Ot R07 .1 CHEST PAIN ON BREATHING 11/07/2019 KIM AYALA APRN Ot R07 .9 CHEST PAIN, UNSPECIFIED 11/07/2019 KIM AYALA APRN Ot Z20.828 CONTACT W AND EXPOSURE TO OTH VIRAL COMM 11/07/2019 KIM AYALA APRN Ot Z79.899 OTHER REVENUE ACCOUNTANT (CURRENT) DRUG THERAPY 11/07/2019 KIM AYALA APRN Ot Z87.19 PERSONAL HISTORY OF OTHER DISEASES OF 11/08/2019 KIM AYALA APRN Ot F17.290 NICOTINE DEPENDENCE, OTHER TOBACCO PRODU 11/08/2019 KIM AYALA APRN Ot J45.909 UNSPECIFIED ASTHMA, UNCOMPLICATED 11/08/2019 KIM AYALA APRN Ot R07 .1 CHEST PAIN ON BREATHING 11/08/2019 KIM AYALA SCARF AND ANNEAL OPERATOR Ot R07 .9 CHEST PAIN, UNSPECIFIED 11/08/2019 KIM AYALA APRN Ot Z79.899 OTHER REVENUE ACCOUNTANT (CURRENT) DRUG THERAPY 11/08/2019 KIM AYALA APRN Ot Z87.19 PERSONAL HISTORY OF OTHER DISEASES OF 11/13/2019 WESLEY WARE MD Ot D50. 9 IRON DEFICIENCY ANEMIA, UNSPECIFIED 11/13/2019 WESLEY WARE MD J Ot F17.210 NICOTINE DEPENDENCE, CIGARETTES, UNCOMPL 11/13/2019 WESLEY WARE MD J Ot F17.290 NICOTINE DEPENDENCE, OTHER TOBACCO PRODU 11/13/2019 JEANIE MULLEN, WESLEY Otero Ot J40 BRONCHITIS, NOT SPECIFIED ACUTE OR CH 11/13/2019 WESLEY WARE MD Ot K21. 9 GASTRO-ESOPHAGEAL REFLUX DISEASE WITHOUT 11/13/2019 WESLEY WARE MD Ot R09. 1 PLEURISY 11/13/2019 WESLEY WARE MD Ot Z20.828 CONTACT W AND EXPOSURE TO OTH VIRAL COMM 11/18/2019 WESLEY WARE MD Ot D50. 9 IRON DEFICIENCY ANEMIA, UNSPECIFIED 11/18/2019 WESLEY WARE MD Ot F17.210 NICOTINE DEPENDENCE, CIGARETTES, UNCOMPL 11/18/2019 WESLEY WARE MD Ot F17.290 NICOTINE DEPENDENCE, OTHER TOBACCO PRODU 11/18/2019 WESLEY WARE MD Ot J40 BRONCHITIS, NOT SPECIFIED ACUTE OR CH 11/18/2019 WESLEY WARE MD Ot K21. 9 GASTRO-ESOPHAGEAL REFLUX DISEASE WITHOUT 11/18/2019 WESLEY WARE MD Ot R09. 1 PLEURISY 11/18/2019 WESLEY WARE MD Ot Z20.828 CONTACT W AND EXPOSURE TO OTH VIRAL COMM 12/05/2019 KIM AYALA APRN Ot F17.290 NICOTINE DEPENDENCE, OTHER TOBACCO PRODU 12/05/2019 KIM AYALA APRN Ot J45.909 UNSPECIFIED ASTHMA, UNCOMPLICATED 12/05/2019 KIM AYALA SCARF AND ANNEAL OPERATOR Ot R07 .1 CHEST PAIN ON BREATHING 12/05/2019 KIM AYALA APRN Ot R07 .9 CHEST PAIN, UNSPECIFIED 12/05/2019 KIM AYALA APRN Ot Z20.828 CONTACT W AND EXPOSURE TO OTH VIRAL COMM 12/05/2019 KIM AYALA APRN Ot Z79.899 OTHER HALF-WAY (CURRENT) DRUG THERAPY 12/05/2019 KIM AYALA SCARF AND ANNEAL OPERATOR Ot Z87.19 PERSONAL HISTORY OF OTHER DISEASES OF 12/24/2019 KIM AYALA APRN Ot B34 .9 VIRAL INFECTION, UNSPECIFIED 12/24/2019 KIM AYALA APRN Ot J02 .9 ACUTE PHARYNGITIS, UNSPECIFIED 12/24/2019 KIM AYALA APRN Ot K21 .9 GASTRO-ESOPHAGEAL REFLUX DISEASE WITHOUT 12/24/2019 KIM AYALA APRN Ot N39 .0 URINARY TRACT INFECTION, SITE NOT SPECIF 12/24/2019 KIM AYALA APRN Ot Z20.828 CONTACT W AND EXPOSURE TO OTH VIRAL COMM 12/24/2019 KIM AYALA APRN Ot Z77.22 CNTCT W AND EXPSR TO ENVIRON TOBACCO SMO Procedures There is no data. Results Test [...] NRG STATEMENT OF ADEQUACY: NRG INTERPRETATION/RESULT: NRG CANCER PROGRAM CONSULTANT: NRG HPV mRNA E6/E7, SUREPATH VIAL Not [...] 16:58 Bacteria identification in wound by culture [id number] NRG FREE TEXT EXTERNAL RML SENT [...] 21:23 Bacteria identification in wound by culture [id number] NRG FREE TEXT EXTERNAL SUSCEPTIBILITY REPORTED [...] mg/dL 0.1-1.0 Serum or plasma alkaline phosphatase miseha surement (enzymatic activity/volume) 83 U/L 40-136 Serum [...] 7-25 CREATININE 0.55 mg/dL 0.50-1.10 eGFR NON-AFR. [facility] 122 mL/min/1.73m2 > OR = 60 eGFR [...] olume) 1.03 mg/dL 0.00-0.50 Coronavirus SARS-CoV-2 SO 2019 - 0 16:17 Coronavirus Ab [Units/volume] in [...] 11/14/19 14:54 CULTURE, GENITAL SEE NOTE NRG Serum or plasma choriogonadotropin (preg tiera test) detection - 12/21/19 21:53 Serum or plasma choriogonadotropin ( test) de tection NEGATIVE NEGATIVE Complete blood count (CBC) with automate d white blood cell (WBC) differential - 12/21/19 21:57 Blood leukocytes automated count (number/volume) 7.8 10*3/uL 4.3-11.0 Blood erythrocytes automated count (number/volume) 4.05 10*6/uL 4.35-5.85 Venous blood hemoglobin measurement (mass/volume) 7.4 g/dL 11.5-16.0 Blood hematocrit (volume fraction) 26 % 35-52 Automated erythrocyte mean corpuscular volume 63 [ foz_us] 80-99 Automated erythrocyte mean corpuscular h emoglobin (mass per erythrocyte) 18 pg 25-34 Automated erythrocyte mean corpuscular h emoglobin concentration measurement (mass/volume) 29 g/dL 32-36 Automated erythrocyte distribution width ratio 18. 4 % 10.0- 14.5 Automated blood platelet count (count/volume) 361 10*3/uL 130-400 Automated blood platelet mean volume measurement 10.8 [foz_us] 7.4-10.4 Automated blood neutrophils/100 leukocytes 51 % 42-75 Automated blood lymphocytes/100 leukocytes 38 % 12-44 Blood monocytes/100 leukocytes 8 % 0-12 Automated blood eosinophils/100 leukocytes 3 % 0-10 Automated blood basophils/100 leukocytes 0 % 0-10 Blood neutrophils automated count (number/volume) 4.0 10*3 1.8-7.8 Blood lymphocytes automated count (number/volume) 3.0 10*3 1.0-4.0 Blood monocytes automated count (number/volume) 0. 7 10*3 0.0-1.0 Automated eosinophil count 0.2 10*3/uL 0 .0-0.3 Automated blood basophil count (count/volume) 0.0 10*3/uL 0.0-0.1 Streptococcus pyogenes antigen detection - 12/21/19 21:57 Streptococcus pyogenes antigen detection NEGATIVE NEGATIVE Comprehensive metabolic panel - 12/21/19 21:57 Serum or plasma sodium measurement (moles/volume) 140 mmol/L 135-145 Serum or plasma potassium measurement (moles/volume) 3.1 mmol/L 3.6-5.0 Serum or plasma chloride measurement (moles/volume) 107 mmol/L 98-107 Carbon dioxide 23 mmol/L 21-32 [...] NRG Serum or plasma glucose measurement (mass/volume) 92 mg/dL 70-105 Serum or plasma calcium measurement (mass/volume) 8.6 mg/dL 8.5-10.1 Serum or plasma total bilirubin measurement (mass/volu me) 0.2 mg/dL 0.1-1.0 Serum or plasma alkaline phosphatase miesha surement (enzymatic activity/volume) 64 U/L 40-136 Serum or plasma aspartate aminotransfera se measurement (enzymatic activity/volume) 15 U/L 5-34 Serum or plasma alanine aminotransferase measurement (enzymatic activity/volume) 9 U/L 0-55 Serum or plasma protein measurement (mass/volume) 7.9 g/dL 6.4-8.2 Serum or plasma albumin measurement (mass/volume) 3.9 g/dL 3.2-4.5 CALCIUM CORRECTED 8.7 mg/dL 8.5-10.1 Serum heterophile antibody titer - 12/20 21:57 Serum heterophile antibody titer NEGATIVE NEGATIVE Bacterial throat culture - 12/21/19 21:5 7 Bacterial throat culture [id number] NRG FREE TEXT EXTERNAL PLUS MODERATE NORMAL FAN NRG QUANTITY OF GROWTH Scant Growth NRG Complete urinalysis with reflex to cultu re - 12/21/19 22:14 Urine color determination YELLOW NRG Urine clarity determination SL CLOUDY N RG Urine pH measurement by test strip 6.0 5-9 Specific gravity of urine by test [...] urobilinogen measurement by automated test strip (mass/volume) 4.0 mg/dL < = 1.0 Urine leukocyte esterase detection by dipstick 1+ [...] detection in urine sediment by light microscopy MODERATE NRG Complete urinalysis with reflex to culture YES NRG Bacterial urine culture - 12/21/19 22:14 Bacterial urine culture 3 OR MORE NRG COLONY COUNT >100,000/ML NRG SUSCEPTIBILITY GRAM POSITIVE ISOLATES; SUGGESTING NRG MRSA SCREEN PROBABLE COLLECTION CONTAMINATION WITH NRG RAPID ID SKIN FAN. NO SUSCEPTIBILITY PERFORMED. NRG Coronavirus SARS-CoV-2 SO 2019 - 0 22:39 Coronavirus Ab [Units/volume] in Serum Negative Negative CULTURE, URINE - 12/26/19 14:25 CULTURE, URINE, ROUTINE SEE NOTE NRG Encounters ACCT No. Visit Date/Time Discharge Status Pt. Type Provider Facility Loc./Unit Complaint [id number] 12/26/2019 14:20:00 12/26/2019 23:59: 59 CLS Outpatient ZAID LANGE [facility] [id number] 12/26/2019 14:20:00 Document Registration [id number] 11/14/2019 14:05:00 Document Registration [id number] 09/13/2019 13:20:00 Document Registration [id number] 07/26/2019 14:45:00 Document Registration [id number] 03/24/2018 10:20:00 Document Registration [id number] 12/05/2017 11:40:00 Document Registration [id number] 12/21/2019 21:46:00 23:31:00 DIS Outpatient KIM AYALA APRN [facility] ER SORE THROAT [id number] 11/12/2019 22:39:00 00:07:00 DIS Emergency WESLEY WARE MD [facility] ER CHEST PAIN [id number] 11/07/2019 14:43:00 16:31:00 DIS Emergency KIM AYALA APRN [facility] ER CHEST PAIN [id number] 09/11/2019 20:45:00 23:05:00 DIS Emergency KIM AYALA APRN [facility] ER PAIN IN BOTH SIDES [id number] 06/04/2019 17:33:00 19:28:00 DIS Emergency SHANI CAMARGO [facility] ER SORE THROAT,BODY ACHES, DIZZINESS [id number] 05/03/2019 23:25:00 01:36:00 DIS Emergency WESLEY WARE MD [facility] ER PRESSURE AT CENTER OF C HEST,POSS YEAST INFECTION [id number] 04/01/2019 14:54:00 17:11:00 DIS Emergency DAX MACHADO [facility] ER R ANKLE PAIN [id number] 03/23/2019 16:09:00 17:06:00 DIS Emergency KIM AYALA APRN [facility] ER LEFT LEG PAIN [id number] 03/10/2019 19:04:00 019 21:35:00 DIS Emergency CINDY YEPEZ MD [facility] ER CHEST PAIN, SOB [id number] 02/05/2019 20:25:00 019 22:20:00 DIS Emergency KIM AYALA APRN [facility] ER R FINGER PAIN / DIZZY [id number] 07/20/2018 15:49:00 18:36:00 DIS Emergency BRITTA PRAKASH [facility] ER BURNING IN CHEST [id number] 04/28/2018 13:41:00 16:40:00 DIS Emergency BRITTA PRAKASH [facility] ER EAR PAIN;CHEST CONGESTI ON;COUGH [id number] 01/07/2018 11:35:00 018 15:23:00 DIS Emergency WESLEY WARE MD [facility] ER CHEST PAIN [id number] 12/13/2017 15:50:00 018 19:32:00 DIS Emergency WESLEY WARE MD [facility] ER ABD PAIN;WRIST PAIN [id number] 11/22/2017 16:59:00 018 19:22:00 DIS Emergency DAX MACHADO [facility] ER R KNEE PAIN [id number] 09/23/2017 22:32:00 018 01:40:00 DIS Emergency JOSÉ MIGUEL FLYNN MD [facility] ER STOMACH PAIN [id number] 12/31/2019 17:19:[address] Emergency MARLENI MULLEN, CINDY Elise [facility] ER R SIDE/BACK PAIN
[2019-12-31] MEDS ORDERED: AZITHROMYCIN 250 MG TAB (ZITHROMAX) PO STA (20:40)
[2019-12-31] MEDS ORDERED: cefTRIAXone FOR IV USE 1,000 MG in WATER (STERILE) FOR INJECTION 10 ML IV STA (20:40)
[2019-12-31] MEDS ORDERED: HYDROcodone/APAP 5 MG/325 MG (LORTAB) TAB PO ONE (20:45)
[2019-12-31] MEDS ORDERED: KCL 20 MEQ TAB (K-DUR) PO ONE (20:45)
[2019-12-31 21:41] VITALS: BP 109/72
[2019-12-31] MEDS ORDERED: HYDR-4226 PO (22:01)
[2019-12-31] MEDS ORDERED: DOXY100T2 PO (22:01)
== END 2019-12-31 22:01 | disposition home or self-care (01) ==
LOC: EDUNIT# 17:18 → ER 17:19
DX: R59.0 Localized enlarged lymph nodes (principal); Z20.828 Contact with and (suspected) exposure to other viral communicable diseases; F17.210 Nicotine dependence, cigarettes, uncomplicated; K21.9 Gastro-esophageal reflux disease without esophagitis; K80.20 Calculus of gallbladder without cholecystitis without obstruction
CPT/HCPCS: 74177; 80053; 81000; 83615; 84145; 84703; 85025; 85379; 85652; 86141; 87088; 87491; 87591; 93005; 96374; 96375; 99284; U0002; 36415; 87635

== ENCOUNTER 2020-01-16 20:35 | Emergency (ER) | payer MEDICAID ==
[~2020-01-16] VITALS: Ht 150 cm; Wt 99.8 kg
[~2020-01-16 20:35] MED LIST changes: +DOXY100T2 PO; +HYDR-4226 PO
[2020-01-16] MEDS ORDERED: KETOROLAC 30 MG/ML VIAL IVP ONE (20:45)
[2020-01-16] MEDS ORDERED: NS IV 1000 ML 1,000 ML IV SCH (20:45)
[2020-01-16] MEDS ORDERED: ONDANSETRON 4 MG/2 ML (SDV) Z0FRAN IVP ONE (20:45)
[2020-01-16 20:54] LABS: BASOPHILS % (AUTO) 0 % (0-10); EOSINOPHILS # (AUTO) 0.2 10^3/uL (0.0-0.3); EOSINOPHILS % (AUTO) 2 % (0-10); HEMATOCRIT 26 % (35-52); HEMOGLOBIN 7.5 G/DL (11.5-16.0); LYMPHOCYTES # (AUTO) 2.5 X 10^3 (1.0-4.0); LYMPHOCYTES % (AUTO) 26 % (12-44); MEAN CORPUSCULAR HEMOGLOBIN 18 PG (25-34); MEAN CORPUSCULAR HGB CONC 29 G/DL (32-36); MEAN CORPUSCULAR VOLUME 62 FL (80-99); MEAN PLATELET VOLUME 10.5 FL (7.4-10.4); MONOCYTES # (AUTO) 0.8 X 10^3 (0.0-1.0); MONOCYTES % (AUTO) 8 % (0-12); NEUTROPHILS # (AUTO) 6.4 X 10^3 (1.8-7.8); NEUTROPHILS % (AUTO) 64 % (42-75); PLATELET COUNT 452 10^3/uL (130-400); WHITE BLOOD COUNT 9.9 10^3/uL (4.3-11.0)
--- NOTE | 2020-01-16 20:56 | ED Abdominal Pain ---
General Stated Complaint: LLQ PAIN Source of Information: Patient Exam Limitations: No Limitations History of Present Illness Date Seen by Provider: Jan 16, 2020 Time Seen by Provider: 20:36 Initial Comments Patient presents ER by private conveyance from home with chief complaint of 2 weeks of right lower quadrant abdominal pain. She was seen on the ER they found some enlarged lymph nodes and put her on antibiotics and sent home. She says the pain has not gotten worse is now 10 out of 10 and she has a difficult time walking. Had a bowel movement was normal, formed this morning. No blood in it. She has some nausea but no vomiting. No fevers chills cough shortness of breath. She's had several C-sections and an umbilical hernia repair in [place]. No trauma. No dysuria. Patient has history of UTI and anemia with hemoglobin 7.4. She is on iron chronically for her anemia. She has negative COVID-19 swab recently. She presented December 30, 16 days ago and at that time complained of 2 weeks of progressively worsening right flank and back pain going to her right groin. Mother COVID-19 swab was collected on 12/30 which was negative as well as a CT of the abdomen pelvis. The gonorrhea and chlamydia tests were ordered and the patient was given Keflex tracks own and azithromycin. She was sent out with supplemental potassium, doxycycline and hydrocodone. CT of the abdomen did demonstrate some cholelithiasis without cholecystitis. There is interval progression of mildly prominent bilateral inguinal and left iliac chain adenopathy of uncertain etiology or significance. Underlying lymphoproliferative or lymphoma invasive process was to be considered. She was to follow-up in the clinic at formerly [facility]. Patient also had a negative mono screen and group A strep on 12/21/19. Allergies and Home Medications Allergies Coded Allergies: No Known Drug Allergies (Unverified , 03/10/19) Home Medications Cefuroxime Axetil 250 Mg Tablet, 250 MG PO BID Prescribed by: KIM AYALA on 12/21/192233 Doxycycline Hyclate 100 Mg Tablet, 100 MG PO BID Prescribed by: CINDY YEPEZ on 12/31/192200 Ferrous Sulfate 325 Mg Tablet, 325 MG PO DAILY Prescribed by: KIM AYALA on 12/21/192233 Hydrocodone/Acetaminophen 1 Each Tablet, 1 TAB PO Q6H Prescribed by: CINDY YEPEZ on 12/31/192201 Omeprazole 40 Mg Capsule.dr, 40 MG PO DAILY Prescribed by: WESLEY WARE on 11/13/19 0004 Ondansetron 4 Mg Tab.rapdis, 4 MG PO Q6H PRN for NAUSEA/VOMITING Prescribed by: WESLEY WARE on 11/13/193 Sucralfate 1 Gm Tablet, 1 GM PO QIDACHS Prescribed by: WESLEY WARE on 11/13/193 Patient Home Medication List Home Medication List Reviewed: Yes Review of Systems Review of Systems Constitutional: No chills, No fever, No malaise EENTM: No Blurred Vision, No Double Vision Respiratory: Denies Cough, Denies Shortness of Air Cardiovascular: Denies Chest Pain, Denies Edema Gastrointestinal: See HPI; Denies Abdomen Distended; Abdominal Pain; Denies Constipated, Denies Diarrhea; Nausea Genitourinary: Denies Burning, Denies Discharge Musculoskeletal: No back pain, No joint pain Skin: No pruritus, No rash Psychiatric/Neurological: Denies Anxiety, Denies Depressed, Denies Headache All Other Systems Reviewed Negative Unless Noted: Yes Past [id number]-Szvntv Hx Patient Social History Alcohol Use: Denies Use Recreational Drug Use: No Smoking Status: Current Everyday Smoker Type Used: Cigarettes (2-3 cigarettes a day), Electronic/Vapor, Smokeless Tobacco 2nd Hand Smoke Exposure: Yes Recent Foreign Travel: No Contact w/Someone Who Travel: No Recent Hopitalizations: No Immunizations Up To Date Tetanus Booster (TDap): Less than 5yrs Seasonal Allergies Seasonal Allergies: No Past Medical History Surgeries: Yes (HERNIA) Abdominal, Section, Tubal Ligation Respiratory: Yes Asthma Cardiac: No Neurological: No [employer] History: Tubal Ligation Genitourinary: No Gastrointestinal: Yes (H. pylori) Gastroesophageal Reflux, Ulcer Musculoskeletal: No Endocrine: No HEENT: No Cancer: No Psychosocial: No Integumentary: No Blood Disorders: No Family Medical History No Pertinent Family Hx Physical Exam Vital Signs Vital Signs - First Documented 01/16/20 20:40 Temp 36.4 Pulse 76 Resp 18 B/P (MAP) 131/79 (96) Pulse Ox 99 O2 Delivery Room Air Capillary Refill : Height/Weight/BMI Height: 4'9.00" Weight: 205lbs. oz. 92.964307zw; 43.00 BMI Method:Stated General Appearance: WD/WN, mild distress HEENT: PERRL/EOMI, pharynx normal Neck: full range of motion, normal inspection Respiratory: normal breath sounds, no respiratory distress, no accessory muscle use Cardiovascular: normal peripheral pulses, regular rate, rhythm, no edema Gastrointestinal: normal bowel sounds, soft, no organomegaly, tenderness (all 4 quadrants without positive psoas sign.) Extremities: normal range of motion, no pedal edema, normal capillary refill Neurologic/Psychiatric: alert, normal mood/affect, oriented x 3 Skin: normal color, warm/dry Progress/Results/Core Measures Results/Orders Lab Results Laboratory Tests Test 01/16/20 20:45 01/16/20 20:52 Range/Units White Blood Count 9.9 4.3-11.0 10^3/uL Red Blood Count 4.16 L 4.35-5.85 10^6/uL Hemoglobin 7.5 L 11.5-16.0 G/DL Hematocrit 26 L 35-52 % Mean Corpuscular Volume 62 L 80-99 FL Mean Corpuscular Hemoglobin 18 L 25-34 PG Mean Corpuscular Hemoglobin Concent 29 L 32-36 G/DL Red Cell Distribution Width 18.0 H 10.0-14.5 % Platelet Count 452 H 130-400 10^3/uL Mean Platelet Volume 10.5 H 7.4-10.4 FL Neutrophils (%) (Auto) 64 42-75 % Lymphocytes (%) (Auto) 26 12-44 % Monocytes (%) (Auto) 8 0-12 % Eosinophils (%) (Auto) 2 0-10 % Basophils (%) (Auto) 0 0-10 % Neutrophils # (Auto) 6.4 1.8-7.8 X 10^3 Lymphocytes # (Auto) 2.5 1.0-4.0 X 10^3 Monocytes # (Auto) 0.8 0.0-1.0 X 10^3 Eosinophils # (Auto) 0.2 0.0-0.3 10^3/uL Basophils # (Auto) 0.0 0.0-0.1 10^3/uL Sodium Level 141 135-145 MMOL/L Potassium Level 2.9 L 3.6-5.0 MMOL/L Chloride Level 106 98-107 MMOL/L Carbon Dioxide Level 24 21-32 MMOL/L Anion Gap 11 5-14 MMOL/L Blood Urea Nitrogen 8 7-18 MG/DL Creatinine 0.68 0.60-1.30 MG/DL Estimat Glomerular Filtration Rate > 60 BUN/Creatinine Ratio 12 Glucose Level 76 70-105 MG/DL Calcium Level 8.6 8.5-10.1 MG/DL Corrected Calcium 8.4 L 8.5-10.1 MG/DL Total Bilirubin 0.3 0.1-1.0 MG/DL Aspartate Amino Transf (AST/SGOT) 19 5-34 U/L Alanine Aminotransferase (ALT/SGPT) 15 0-55 U/L Alkaline Phosphatase 73 40-136 U/L C-Reactive Protein High Sensitivity 1.73 H 0.00-0.50 MG/DL Total Protein 8.4 H 6.4-8.2 GM/DL Albumin 4.2 3.2-4.5 GM/DL Lipase 24 8-78 U/L Urine Color YELLOW Urine Clarity SL CLOUDY Urine pH 5.5 5-9 Urine Specific [place] >=1.030 1.016-1.022 Urine Protein TRACE H NEGATIVE Urine Glucose (UA) NEGATIVE NEGATIVE Urine Ketones NEGATIVE NEGATIVE Urine Nitrite NEGATIVE NEGATIVE Urine Bilirubin NEGATIVE NEGATIVE Urine Urobilinogen 0.2 < = 1.0 MG/DL Urine Leukocyte Esterase 1+ H NEGATIVE Urine RBC (Auto) NEGATIVE NEGATIVE Urine RBC NONE /HPF Urine WBC 5-10 H /HPF Urine Squamous Epithelial Cells 0-2 /HPF Urine Crystals NONE /LPF Urine Bacteria TRACE /HPF Urine Casts NONE /LPF Urine Mucus MODERATE H /LPF Urine Culture Indicated YES Urine Opiates Screen NEGATIVE NEGATIVE Urine Oxycodone Screen NEGATIVE NEGATIVE Urine Methadone Screen NEGATIVE NEGATIVE Urine Propoxyphene Screen NEGATIVE NEGATIVE Urine Barbiturates Screen NEGATIVE NEGATIVE Ur Tricyclic Antidepressants Screen NEGATIVE NEGATIVE Urine Phencyclidine Screen NEGATIVE NEGATIVE Urine Amphetamines Screen NEGATIVE NEGATIVE Urine Methamphetamines Screen NEGATIVE NEGATIVE Urine Benzodiazepines Screen NEGATIVE NEGATIVE Urine Cocaine Screen NEGATIVE NEGATIVE Urine Cannabinoids Screen NEGATIVE NEGATIVE My Orders Orders - WESLEY WARE Ua Culture If Indicated (01/16/20 20:37) Urine Bedside (01/16/20 20:37) Cbc With Automated Diff (01/16/20 20:45) Comprehensive Metabolic Panel (01/16/20 20:45) Hs C Reactive Protein (01/16/20 20:45) Lipase (01/16/20 20:45) Drug Screen Stat (Urine) (01/16/20 20:45) Ketorolac Injection (Toradol Injection) (01/16/20 20:45) Ondansetron Injection (Zofran Injectio (01/16/20 20:45) Ed Iv/Invasive Line Start (01/16/20 20:45) Ns Iv 1000 Ml (Sodium Chloride 0.9%) (01/16/20 20:45) Pantoprazole Injection (Protonix Injecti (01/16/20 21:00) Urine Culture (01/16/20 20:52) Hydrocodone/Apap 5/325 Tablet (Lortab 5 (01/16/20 21:45) Ct Abdomen/Pelvis W (01/16/20 21:32) Iohexol Injection (Omnipaque 350 Mg/Ml 1 (01/16/20 22:00) Received Contrast (Hold Metformin- Contr (01/16/20 22:00) Ns (Ivpb) (Sodium Chloride 0.9% Ivpb Bag (01/16/20 22:00) Medications Given in ED Current Medications Medications Dose Ordered Sig/Giana Route Start Time Stop Time Status Last Admin Dose Admin Acetaminophen/ Hydrocodone Bitart 1 tab ONCE ONCE PO 01/16/20 21:45 01/16/20 21:46 DC 01/16/20 22:09 1 TAB Iohexol 100 ml ONCE ONCE IV 01/16/20 22:00 01/16/20 22:01 DC 01/16/20 21:58 100 ML Ketorolac Tromethamine 30 mg ONCE ONCE IVP 01/16/20 20:45 01/16/20 20:47 DC 01/16/20 21:02 30 MG Ondansetron HCl 4 mg ONCE ONCE IVP 01/16/20 20:45 01/16/20 20:47 DC 01/16/20 21:02 4 MG Pantoprazole 40 mg ONCE ONCE IV 01/16/20 21:00 01/16/20 21:01 DC 01/16/20 21:02 40 MG Sodium Chloride 100 ml ONCE ONCE IV 01/16/20 22:00 01/16/20 22:01 DC 01/16/20 21:58 80 ML Vital Signs/I&O 01/16/20 20:40 Temp 36.4 Pulse 76 Resp 18 B/P (MAP) 131/79 (96) Pulse Ox 99 O2 Delivery Room Air Progress Progress Note #1: Time: 20:48 Progress Note Patient's tender all over her belly. We'll give her some pantoprazole, Toradol, Zofran for nausea and a liter of fluids. Get some labs including a lipase CRP urinalysis drug screen and bedside . She has aseptic vital signs. Appendicitis versus cholecystitis versus mesenteric adenitis versus ovarian cyst versus pelvic inflammatory disease less likely because she's not having any discharge or dyspareunia. Progress Note #2: Time: 21:33 Progress Note Patient's pain down to an 8 out of 10. Give her a hydrocodone get a CT of her belly. Urinalysis shows UTI. Otherwise lab was unremarkable from previously. She says she did get the doxycycline and potassium. She's not sure exactly taking the potassium. She is a poor historian. Progress Note #3: Time: 22:[address] is unremarkable except for cholelithiasis. We can send her to a surgeon outpatient to discuss whether the gallstones need addressed on an elective basis. She already has an appointment in 10 days with the ed case manager for fibroids. We'll put her on antibiotics for the past. Diagnostic Imaging Diagonstic Imaging: CT (with IV contrast) Plain Films/CT/US/NM/MRI: abdomen, pelvis Comments Probable cholelithiasis. No acute findings otherwise. Reviewed: Reviewed by Me Departure Impression Primary Impression: Urinary tract infection Qualified Codes: N30.00 - Acute cystitis without hematuria Additional Impression: Cholelithiasis Qualified Codes: K80.20 - Calculus of gallbladder without cholecystitis without obstruction Disposition: 01 HOME, SELF-CARE Condition: Stable Departure-Patient Inst. Decision time for Depature: 23:00 Referrals: [facility] (PCP/Family) Primary Care Physician HILARY TIPTON DO Patient Instructions: Gallstones, Gallbladder Diet, Urinary Tract Infection, Adult (DC) Add. Discharge Instructions: Drink plenty of fluids. Cephalexin 1 tablet twice a day for the next 5 days. Tylenol 1000 mg every 8 hours as necessary for pain. Ibuprofen 800 mg every 8 hours as necessary for pain. Keep your follow-up appointment with a ed case manager to discuss your possible fibroids. Him a schedule appointment in the next 2-4 weeks with a surgeon to discuss wh ether you want to have anything done about your gallstones. Scripts Tramadol HCl (Tramadol HCl) 50 Mg Tablet 50 MG PO Q6H PRN for PAIN for 3 Days, #10 TAB 0 Refills Prov: WESLEY WARE 01/16/20 Cephalexin (Cephalexin) 500 Mg Tablet 500 MG PO BID for 5 Days, #10 TAB 0 Refills Prov: WESLEY WARE 01/16/20 Copy Copies To 1: HILARY TIPTON DO WESLEY WARE Jan 16, 2020 20:55
[2020-01-16] MEDS ORDERED: PANTOPRAZOLE 40 MG (PROTONIX) VIAL IV ONE (21:00)
[2020-01-16 21:04] LABS: BILIRUBIN,URINE NEGATIVE (NEGATIVE); CLARITY,URINE SL CLOUDY; COLOR,URINE YELLOW; GLUCOSE, URINE (UA) NEGATIVE (NEGATIVE); KETONES,URINE NEGATIVE (NEGATIVE); LEUKOCYTE ESTERASE ,URINE 1+ (NEGATIVE); NITRITE,URINE NEGATIVE (NEGATIVE); PH,URINE 5.5 (5-9); PROTEIN,URINE TRACE (NEGATIVE)
[2020-01-16 21:09] LABS: BACTERIA,URINE TRACE /HPF; SQUAMOUS EPITHELIAL CELL,UR 0-2 /HPF
--- NOTE | 2020-01-16 21:11 | NUR ---
Pt reports to this RN she believes she left her phone in her [employer] ride. Pt given ER phone to attempt to contact her cell phone.
[2020-01-16 21:12] LABS: ALANINE AMINOTRANSFERASE 15 U/L (0-55); ALBUMIN 4.2 GM/DL (3.2-4.5); ALKALINE PHOSPHATASE 73 U/L (40-136); BILIRUBIN,TOTAL 0.3 MG/DL (0.1-1.0); BUN/CREATININE RATIO 12; CALCIUM 8.6 MG/DL (8.5-10.1); CARBON DIOXIDE 24 MMOL/L (21-32); CHLORIDE 106 MMOL/L (98-107); CREATININE SERUM 0.68 MG/DL (0.60-1.30); GFR ESTIMATED > 60; GLUCOSE 76 MG/DL (70-105); LIPASE 24 U/L (8-78); POTASSIUM 2.9 MMOL/L (3.6-5.0); SODIUM 141 MMOL/L (135-145); TOTAL PROTEIN 8.4 GM/DL (6.4-8.2)
[2020-01-16 21:14] LABS: AMPHETAMINE SCREEN, URINE NEGATIVE (NEGATIVE); BARBITURATE SCREEN URINE NEGATIVE (NEGATIVE); BENZODIAZEPINES SCREEN URINE NEGATIVE (NEGATIVE); CANNABINOID SCREEN, URINE NEGATIVE (NEGATIVE); COCAINE SCREEN URINE NEGATIVE (NEGATIVE); METHADONE STAT NEGATIVE (NEGATIVE); METHAMPHETAMINE SCREEN URINE S NEGATIVE (NEGATIVE); OPIATE SCREEN URINE NEGATIVE (NEGATIVE); OXYCODONE STAT NEGATIVE (NEGATIVE); PROPOXYPHENE STAT NEGATIVE (NEGATIVE); TRICYCLIC ANTIDEPRESSANTS SCRE NEGATIVE (NEGATIVE)
[2020-01-16] MEDS ORDERED: HYDROcodone/APAP 5 MG/325 MG (LORTAB) TAB PO ONE (21:45)
[2020-01-16] MEDS ORDERED: IOHEXOL 350 MG/ML 100 ML (OMNIPAQUE 350) VIAL IV ONE (22:00)
[2020-01-16] MEDS ORDERED: NS 100 ML (IVPB) BAG IV ONE (22:00)
[2020-01-16] MEDS ORDERED: HOLD METFORMIN - RECEIVED CONTRAST 20 ML VIAL IV SCH (22:00)
[2020-01-16] MEDS ORDERED: CEPH500T PO (23:03)
[2020-01-16] MEDS ORDERED: TRM50T PO (23:03)
[2020-01-16 23:18] VITALS: BP 146/98
--- OUTSIDE RECORDS SUMMARY | 2020-01-17 01:10 | XMS REPORT | Continuity of Care Document ---
Author Organization Unknown Address Unknown Phone Unavailable Allergies Active Description Code Type Severity Reaction Onset Reported/Identified Relationship to Patient Clinical Status Yes No Known Drug Allergies [id number] Drug Allergy Unknown N/A 03/10/2019 Medications There [...] PERSONAL HISTORY OF OTHER DISEASES OF 01/09/2018 WELSEY WARE MD Ot Z87. 59 PERSONAL HISTORY [...] PRAKASH Ot J45.909 UNSPECIFIED ASTHMA, UNCOMPLICATED 07/24/2018 ADELINE PRAKASHIS Ot R10.13 EPIGASTRIC PAIN 07/24/2018 DWAIN BRITTA Ot R11.2 NAUSEA WITH VOMITING, UNSPECIFIED 07/24/2018 BRITTA PRAKASH Ot Z86.19 PERSONAL HISTORY OF OTHER INFECTIOUS AND 07/24/2018 ADELINE PRAKASHIS Ot Z87.19 PERSONAL HISTORY OF OTHER DISEASES OF TH 07/24/2018 ADELINE PRAKASHIS Ot Z98.51 TUBAL LIGATION STATUS 07/24/2018 ADELINE PRAKASHIS Ot Z98.890 OTHER SPECIFIED POSTPROCEDURAL STATES 02/05/2019 KIM AYALA APRN Ot F17.290 NICOTINE DEPENDENCE, OTHER TOBACCO PRODU 02/05/2019 KIM AYALA APRN Ot J45.909 UNSPECIFIED ASTHMA, UNCOMPLICATED 02/05/2019 KIM AYALA CELL MANAGER Ot L02.511 CUTANEOUS ABSCESS OF RIGHT HAND 02/05/2019 KIM AYALA CELL MANAGER Ot M79.644 PAIN IN RIGHT FINGER(S) 02/05/2019 KIM AYALA CELL MANAGER Ot Z98.51 TUBAL LIGATION STATUS 02/10/2019 KIM AYALA APRN Ot F17.290 NICOTINE DEPENDENCE, OTHER TOBACCO PRODU 02/10/2019 KIM AYALA APRN Ot J45.909 UNSPECIFIED ASTHMA, UNCOMPLICATED 02/10/2019 KIM AYALA APRN Ot L02.511 CUTANEOUS ABSCESS OF RIGHT HAND 02/10/2019 KIM AYALA CELL MANAGER Ot M79.644 PAIN IN RIGHT FINGER(S) 02/10/2019 KIM AYALA CELL MANAGER Ot Z98.51 TUBAL LIGATION STATUS 03/10/2019 CINDY [...] J45.909 UNSPECIFIED ASTHMA, UNCOMPLICATED 03/23/2019 KIM AYALA CELL MANAGER Ot M79.662 PAIN IN LEFT LOWER LEG 03/23/2019 KIM AYALA CELL MANAGER Ot S86.112A STRAIN MUSC/TEND POST GRP AT LOW LEG LEV 03/23/2019 KIM AYALA CELL MANAGER Ot X58.XXXA EXPOSURE TO OTHER SPECIFIED FACTORS, [...] OTHER TOBACCO PRODU 04/03/2019 LUAN RYDER DAX Bertha Ot J45.909 UNSPECIFIED ASTHMA, UNCOMPLICATED 04/03/2019 LUAN RYDER DAX Bertha Ot M25.571 PAIN IN RIGHT ANKLE AND JOINTS OF RIGHT 04/03/2019 LUAN RYDER DAX L Ot Z98.51 TUBAL LIGATION STATUS 05/04/2019 KOLBY WARE MDUS J Ot J45.909 UNSPECIFIED ASTHMA, UNCOMPLICATED 05/04/2019 JEANIE MULLEN, WESLEY J Ot R10. 13 EPIGASTRIC PAIN 05/04/2019 JEANIE MULLEN, WESLEY J Ot Z87.891 PERSONAL HISTORY OF NICOTINE DEPENDENCE 05/04/2019 WESLEY WARE MD J Ot Z98. 51 TUBAL LIGATION STATUS [...] SPECIFIED POSTPROCEDURAL STATES 06/04/2019 MARY JO, SHANI PODIATRIST Ot F17.290 NICOTINE DEPENDENCE, OTHER TOBACCO PRODU 06/04/2019 MARY JO, SHANI PODIATRIST Ot J06.9 ACUTE UPPER RESPIRATORY INFECTION, UNSPE 06/04/2019 MARY JO, SHANI PODIATRIST Ot J45.909 UNSPECIFIED ASTHMA, UNCOMPLICATED 06/04/2019 MARY JO, SHANI PODIATRIST Ot R05 COUGH 06/04/2019 MARY JO, SHANI PODIATRIST Ot R09.82 POSTNASAL DRIP 06/04/2019 MARY JO, SHANI PODIATRIST Ot Z98.51 TUBAL LIGATION STATUS 06/09/2019 MARY JO, SHANI PODIATRIST Ot F17.290 NICOTINE DEPENDENCE, OTHER TOBACCO PRODU 06/09/2019 MARY JO, SHANI PODIATRIST Ot J06.9 ACUTE UPPER RESPIRATORY INFECTION, UNSPE 06/09/2019 MARY JO, SHANI PODIATRIST Ot J45.909 UNSPECIFIED ASTHMA, UNCOMPLICATED 06/09/2019 SHANI CAMARGO PODIATRIST Ot R05 COUGH 06/09/2019 SHANI CAMARGO PODIATRIST Ot R09.82 POSTNASAL DRIP 06/09/2019 MARY JO SHANI PODIATRIST Ot Z98.51 TUBAL LIGATION STATUS 09/11/2019 KIM AYALA APRN Ot D50 .9 IRON DEFICIENCY ANEMIA, UNSPECIFIED 09/11/2019 KIM AYALA APRN Ot J45.909 UNSPECIFIED ASTHMA, UNCOMPLICATED 09/11/2019 KIM AYALA APRN Ot R10 .2 PELVIC AND PERINEAL PAIN 09/11/2019 KIM AYALA APRN Ot Z77.22 CNTCT W AND EXPSR TO ENVIRON TOBACCO SMO 09/11/2019 KIM AYALA APRN Ot Z79.52 PENITENTIARY (CURRENT) USE OF SYSTEMIC STER 11/07/2019 KIM [...] 11/07/2019 KIM AYALA APRN Ot Z79.899 OTHER PENITENTIARY (CURRENT) DRUG THERAPY 11/07/2019 KIM AYALA APRN Ot Z87.19 PERSONAL HISTORY OF OTHER DISEASES OF 11/08/2019 KIM AYALA CELL MANAGER Ot F17.290 NICOTINE DEPENDENCE, OTHER TOBACCO PRODU 11/08/2019 KIM AYALA APRN Ot J45.909 UNSPECIFIED ASTHMA, UNCOMPLICATED 11/08/2019 KIM AYALA CELL MANAGER Ot R07 .1 CHEST PAIN ON BREATHING 11/08/2019 KIM AYALA CELL MANAGER Ot R07 .9 CHEST PAIN, UNSPECIFIED 11/08/2019 KIM AYALA CELL MANAGER Ot Z79.899 OTHER PENITENTIARY (CURRENT) DRUG THERAPY 11/08/2019 KIM AYALA CELL MANAGER Ot Z87.19 PERSONAL HISTORY OF OTHER DISEASES OF TH 11/13/2019 WESLEY WARE MD Ot D50. 9 IRON DEFICIENCY ANEMIA, UNSPECIFIED 11/13/2019 WESLEY WARE MD Ot F17.210 NICOTINE DEPENDENCE, CIGARETTES, UNCOMPL 11/13/2019 WESLEY WARE MD Ot F17.290 NICOTINE DEPENDENCE, OTHER TOBACCO PRODU 11/13/2019 WESLEY WARE MD Ot J40 BRONCHITIS, NOT [...] F17.210 NICOTINE DEPENDENCE, CIGARETTES, UNCOMPL 11/18/2019 WESLEY WAER MD Ot F17.290 NICOTINE DEPENDENCE, OTHER TOBACCO [...] J45.909 UNSPECIFIED ASTHMA, UNCOMPLICATED 12/05/2019 KIM AYALA CELL MANAGER Ot R07 .1 CHEST PAIN ON BREATHING 12/05/2019 KIM AYALA CELL MANAGER Ot R07 .9 CHEST PAIN, UNSPECIFIED 12/05/2019 KIM AYALA APRN Ot Z20.828 CONTACT W AND EXPOSURE TO OTH VIRAL COMM 12/05/2019 KIM AYALA APRN Ot Z79.899 OTHER PENITENTIARY (CURRENT) DRUG THERAPY 12/05/2019 KIM AYALA CELL MANAGER Ot Z87.19 PERSONAL HISTORY OF OTHER DISEASES OF 12/21/2019 KIM AYALA CELL MANAGER Ot B34 .9 VIRAL INFECTION, UNSPECIFIED 12/21/2019 AYALAKIM APRN Ot J02 .9 ACUTE PHARYNGITIS, UNSPECIFIED 12/21/2019 AYALAKIM APRN Ot K21 .9 GASTRO-ESOPHAGEAL REFLUX DISEASE WITHOUT 12/21/2019 AYALAKIM MARR APRN Ot N39 .0 URINARY TRACT INFECTION, SITE NOT SPECIF 12/21/2019 KIM AYALA APRN Ot Z20.828 CONTACT W AND EXPOSURE TO OTH VIRAL COMM 12/21/2019 AYALAKIM APRN Ot Z77.22 CNTCT W AND EXPSR TO ENVIRON TOBACCO SMO 12/24/2019 KIM AYALA APRN Ot B34 .9 VIRAL INFECTION, UNSPECIFIED 12/24/2019 AYALAKIM APRN Ot J02 .9 ACUTE PHARYNGITIS, UNSPECIFIED 12/24/2019 AYALAKIM APRN Ot K21 .9 GASTRO-ESOPHAGEAL REFLUX DISEASE WITHOUT 12/24/2019 AYALAKIM MARR APRN Ot N39 .0 URINARY TRACT INFECTION, SITE NOT SPECIF 12/24/2019 KIM AYALA APRN Ot Z20.828 CONTACT W AND EXPOSURE TO OTH VIRAL COMM 12/24/2019 KIM AYALA APRN Ot Z77.22 CNTCT W AND EXPSR TO ENVIRON TOBACCO SMO 01/08/2020 CINDY YEPEZ MD Ot F17.210 NICOTINE DEPENDENCE, CIGARETTES, UNCOMPL 01/08/2020 CINDY YEPEZ MD Ot K21.9 GASTRO-ESOPHAGEAL REFLUX DISEASE WITHOUT 01/08/2020 CINDY YEPEZ MD Ot K80.20 CALCULUS OF GALLBLADDER W/O CHOLECYSTITI 01/08/2020 CINDY YEPEZ MD Ot M54.5 LOW BACK PAIN 01/08/2020 CINDY YEPEZ MD Ot R59.0 LOCALIZED ENLARGED LYMPH NODES 01/08/2020 CINDY YEPEZ MD Ot Z20.828 CONTACT W AND EXPOSURE TO OTH VIRAL COMM Procedures There is no data. Results Test [...] NRG PREV. 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 PALAUAN 122 mL/min/1.73m2 > OR = 60 eGFR [...] - 12/21/19 21:5 7 Bacterial throat culture [id number] NRG FREE TEXT EXTERNAL PLUS MODERATE NORMAL [...] 14:25 CULTURE, URINE, ROUTINE SEE NOTE NRG Complete urinalysis with reflex to cultu re - 12/31/19 17:26 Urine color determination YELLOW NRG Urine clarity determination CLEAR NR G Urine pH measurement by test strip 5.5 5-9 Specific gravity of urine by test [...] urobilinogen measurement by automated test strip (mass/volume) 0.2 mg/dL < = 1.0 Urine leukocyte esterase detection by dipstick NEG ATIVE NEGATIVE Automated urine sediment erythrocyte cou nt by microscopy (number/high power field) RARE NRG Automated urine sediment leukocyte count by microscopy (number/high power field) [HPF] NRG Bacteria detection in urine sediment by light microsco py FEW NRG Squamous epithelial cells detection in u rine sediment by light microscopy 0-2 NRG Crystals detection in urine sediment by light microsco py NONE NRG Casts detection in urine sediment by light microscopy NONE NRG Mucus detection in urine sediment by light microscopy MODERATE NRG Complete urinalysis with reflex to culture YES NRG Bacterial urine culture - 12/31/19 17:26 Bacterial urine culture 3 OR MORE NRG COLONY COUNT >100,000/ML NRG SUSCEPTIBILITY GRAM POSITIVES, SUGGESTING PROBABLE NRG MRSA SCREEN COLLECTION CONTAMINATION WITH SKIN RICHIE RA NRG RAPID ID NO SUSCEPTIBILITY PERFORMED N RG Chlamydia DNA amp probe, urine - 0 17:26 Chlamydia DNA amp probe, urine Not Detected Not Detected Urine Neisseria gonorrhoeae DNA assay - 12/31/19 17:26 Gonorrhea amp DNA-urine Not Detected No t Detected Complete blood count (CBC) with automate d white blood cell (WBC) differential - 12/31/19 18:03 Blood leukocytes automated count (number/volume) 10.4 10*3/uL 4.3-11.0 Blood erythrocytes automated count (number/volume) 4.12 10*6/uL 4.35-5.85 Venous blood hemoglobin measurement (mass/volume) 7.5 g/dL 11.5-16.0 Blood hematocrit (volume fraction) 26 [...] 130-400 Automated blood platelet mean volume measurement 10.7 [foz_us] 7.4-10.4 Automated blood neutrophils/100 leukocytes 67 % 42-75 Automated blood lymphocytes/100 leukocytes 23 % 12-44 Blood monocytes/100 leukocytes 7 % 0-12 Automated blood eosinophils/100 leukocytes 2 % 0-10 Automated blood basophils/100 leukocytes 0 % 0-10 Blood neutrophils automated count (number/volume) 7.0 10*3 1.8-7.8 Blood lymphocytes automated count (number/volume) 2.4 10*3 1.0-4.0 Blood monocytes automated count (number/volume) 0. 7 10*3 0.0-1.0 Automated eosinophil count 0.3 10*3/uL 0 .0-0.3 Automated blood basophil count (count/volume) 0.0 10*3/uL 0.0-0.1 Comprehensive metabolic panel - 12/31/19 18:03 Serum or plasma sodium measurement (moles/volume) 138 mmol/L 135-145 Serum or plasma potassium measurement (moles/volume) 2.9 mmol/L 3.6-5.0 Serum or plasma chloride measurement (moles/volume) 105 mmol/L 98-107 Carbon dioxide 22 mmol/L 21-32 [...] or plasma alanine aminotransferase measurement (enzymatic activity/volume) 7 U/L 0-55 Serum or plasma protein measurement (mass/volume) 8.0 g/dL 6.4-8.2 Serum or plasma albumin measurement (mass/volume) 3.9 g/dL 3.2-4.5 CALCIUM CORRECTED 8.9 mg/dL 8.5-10.1 Serum or plasma choriogonadotropin (preg tiera test) detection - 12/31/19 18:03 Serum or plasma choriogonadotropin ( test) de tection NEGATIVE NEGATIVE Serum or plasma C reactive protein measu rement (mass/volume) - 12/31/19 18:03 Serum or plasma C reactive protein measurement (mass/v olume) 1.76 mg/dL 0.00-0.50 Fibrin D-dimer FEU measurement in platel et poor plasma (mass/volume) - 12/31/19 18:03 Fibrin D-dimer FEU measurement in platelet poor plasma (mass/volume) 0.61 ug/mL 0.00-0.49 Serum ragweed IgE antibody assay - 12/30 18:03 Serum ragweed IgE antibody assay 221 U/L 125-220 Erythrocyte sedimentation rate by paco gren method - 12/31/19 18:03 Erythrocyte sedimentation rate by westergren method 62 mm 0- 20 PROCALCITONIN (PCT) - 12/31/19 18:03 PROCALCITONIN (PCT) 0.02 ng/mL <0.10 Coronavirus SARS-CoV-2 SO 2019 - 0 18:55 Coronavirus Ab [Units/volume] in Serum Negative Negative CBC - 01/14/20 18:18 WHITE BLOOD CELL COUNT 9.4 Thousand/uL 3 .8-10.8 RED BLOOD CELL COUNT 4.20 Million/uL 3.8 0-5.10 HEMOGLOBIN 7.4 g/dL 11.7-15.5 HEMATOCRIT 26.5 % 35.0-45.0 MCV 63.1 fL 80.0-100.0 MCH 17.6 pg 27.0-33.0 MCHC 27.9 g/dL 32.0-36.0 RDW 18.0 % 11.0-15.0 PLATELET COUNT 472 Thousand/uL 140-400 MPV 11.1 fL 7.5-12.5 ABSOLUTE NEUTROPHILS 5922 cells/uL 1500- 7800 ABSOLUTE LYMPHOCYTES 2444 cells/uL 850-3 900 ABSOLUTE MONOCYTES 846 cells/uL 200-950 ABSOLUTE EOSINOPHILS 160 cells/uL 15-500 ABSOLUTE BASOPHILS 28 cells/uL 0-200 NEUTROPHILS 63 % NRG LYMPHOCYTES 26.0 % NRG MONOCYTES 9.0 % NRG EOSINOPHILS 1.7 % NRG BASOPHILS 0.3 % NRG CBC MORPHOLOGY - 01/14/20 18:18 CBC MORPHOLOGY NORMAL Complete blood count (CBC) with automate d white blood cell (WBC) differential - 01/16/20 20:45 Blood leukocytes automated count (number/volume) 9.9 10*3/uL 4.3-11.0 Blood erythrocytes automated count (number/volume) 4.16 10*6/uL 4.35-5.85 Venous blood hemoglobin measurement (mass/volume) 7.5 g/dL 11.5-16.0 Blood hematocrit (volume fraction) 26 % 35-52 Automated erythrocyte mean corpuscular volume 62 [ foz_us] 80-99 Automated erythrocyte mean corpuscular h emoglobin (mass per erythrocyte) 18 pg 25-34 Automated erythrocyte mean corpuscular h emoglobin concentration measurement (mass/volume) 29 g/dL 32-36 Automated erythrocyte distribution width ratio 18. 0 % 10.0- 14.5 Automated blood platelet count (count/volume) 452 10*3/uL 130-400 Automated blood platelet mean volume measurement 10.5 [foz_us] 7.4-10.4 Automated blood neutrophils/100 leukocytes 64 % 42-75 Automated blood lymphocytes/100 leukocytes 26 % 12-44 Blood monocytes/100 leukocytes 8 % 0-12 Automated blood eosinophils/100 leukocytes 2 % 0-10 Automated blood basophils/100 leukocytes 0 % 0-10 Blood neutrophils automated count (number/volume) 6.4 10*3 1.8-7.8 Blood lymphocytes automated count (number/volume) 2.5 10*3 1.0-4.0 Blood monocytes automated count (number/volume) 0. 8 10*3 0.0-1.0 Automated eosinophil count 0.2 10*3/uL 0 .0-0.3 Automated blood basophil count (count/volume) 0.0 10*3/uL 0.0-0.1 Comprehensive metabolic panel - 01/16/20 20:45 Serum or plasma sodium measurement (moles/volume) 141 mmol/L 135-145 Serum or plasma potassium measurement (moles/volume) 2.9 mmol/L 3.6-5.0 Serum or plasma chloride measurement (moles/volume) 106 mmol/L 98-107 Carbon dioxide 24 mmol/L 21-32 [...] NRG Serum or plasma glucose measurement (mass/volume) 76 mg/dL 70-105 Serum or plasma calcium measurement (mass/volume) 8.6 mg/dL 8.5-10.1 Serum or plasma total bilirubin measurement (mass/volu me) 0.3 mg/dL 0.1-1.0 Serum or plasma alkaline phosphatase miesha surement (enzymatic activity/volume) 73 U/L 40-136 Serum or plasma aspartate aminotransfera se measurement (enzymatic activity/volume) 19 U/L 5-34 Serum or plasma alanine aminotransferase measurement (enzymatic activity/volume) 15 U/L 0-55 Serum or plasma protein measurement (mass/volume) 8.4 g/dL 6.4-8.2 Serum or plasma albumin measurement (mass/volume) 4.2 g/dL 3.2-4.5 CALCIUM CORRECTED 8.4 mg/dL 8.5-10.1 Lipase - 01/16/20 20:45 Lipase 24 U/L 8-78 Serum or plasma C reactive protein measu rement (mass/volume) - 01/16/20 20:45 Serum or plasma C reactive protein measurement (mass/v olume) 1.73 mg/dL 0.00-0.50 Complete urinalysis with reflex to cultu re - 01/16/20 20:52 Urine color determination YELLOW NRG Urine clarity determination SL CLOUDY N RG Urine pH measurement by test strip 5.5 5-9 Specific gravity of urine by test [...] urobilinogen measurement by automated test strip (mass/volume) 0.2 mg/dL < = 1.0 Urine leukocyte esterase detection by dipstick 1+ NEGATIVE Automated urine sediment erythrocyte cou nt by microscopy (number/high power field) NONE NRG Automated urine sediment leukocyte count by microscopy (number/high power field) [HPF] NRG Bacteria detection in urine sediment by light microsco py TRACE NRG Squamous epithelial cells detection in u rine sediment by light microscopy 0-2 NRG Crystals detection in urine sediment by light microsco py NONE NRG Casts detection in urine sediment by light microscopy NONE NRG Mucus detection in urine sediment by light microscopy MODERATE NRG Complete urinalysis with reflex to culture YES NRG Urine drug screening test - 01/16/20 20: 52 Urine phencyclidine detection by screening method NEGATIVE NEGATIVE Urine benzodiazepines detection by screening method NEGATIVE NEGATIVE Urine cocaine detection NEGATIVE NEGATI VE Urine amphetamines detection by screening method N EGATIVE NEGATIVE Urine methamphetamine detection by screening method NEGATIVE NEGATIVE Urine cannabinoids detection by screening method N EGATIVE NEGATIVE Urine opiates detection by screening method NEGATI VE NEGATIVE Urine barbiturates detection NEGATIVE N EGATIVE Screening urine tricyclic antidepressants detection NEGATIVE NEGATIVE Urine methadone detection by screening method NEGA TIVE NEGATIVE Urine oxycodone detection NEGATIVE NEGA TIVE Urine propoxyphene detection NEGATIVE N EGATIVE Encounters ACCT No. Visit Date/Time Discharge Status Pt. Type Provider Facility Loc./Unit Complaint [id number] 01/14/2020 17:40:00 ACT Outpatient [facility] [id number] 01/14/2020 17:40:00 Document Registration [id number] 12/26/2019 14:20:00 Document Registration [id number] 11/14/2019 14:05:00 Document Registration [id number] 09/13/2019 13:20:00 Document Registration [id number] 07/26/2019 14:45:00 Document Registration [id number] 03/24/2018 10:20:00 Document Registration [id number] 12/05/2017 11:40:00 Document Registration [id number] 12/31/2019 17:19:00 22:01:00 DIS Outpatient CINDY YEPEZ MD [facility] ER R SIDE/BACK FARHAD N [id number] 12/21/2019 21:46:00 23:31:00 DIS Emergency KIM AYALA APRN [facility] ER SORE THROAT [id number] 11/12/2019 22:39:00 00:07:00 DIS Emergency WESLEY WARE MD [facility] ER CHEST PAIN [id number] 11/07/2019 14:43:00 16:31:00 DIS Emergency KIM AYALA APRN [facility] ER CHEST PAIN [id number] 09/11/2019 20:45:00 23:05:00 DIS Emergency KIM AYALA APRN [facility] ER PAIN IN BOTH SIDES [id number] 06/04/2019 17:33:00 19:28:00 DIS Emergency SHANI CAMARGO [facility] ER SORE THROAT,BODY ACHES, DIZZINESS [id number] 05/03/2019 23:25:00 01:36:00 DIS Emergency WESLEY WARE MD [facility] ER PRESSURE AT CENTER OF C HEST,POSS YEAST INFECTION [id number] 04/01/2019 14:54:00 17:11:00 DIS Emergency DAX MACHADO [facility] ER R ANKLE PAIN [id number] 03/23/2019 16:09:00 17:06:00 DIS Emergency KIM AYALA APRN [facility] ER LEFT LEG PAIN [id number] 03/10/2019 19:04:00 21:35:00 DIS Emergency CINDY YEPEZ MD [facility] ER CHEST PAIN, SOB [id number] 02/05/2019 20:25:00 22:20:00 DIS Emergency KIM AYALA APRN [facility] ER R FINGER PAIN / DIZZY [id number] 07/20/2018 15:49:00 18:36:00 DIS Emergency BRITTA PRAKASH [facility] ER BURNING IN CHEST [id number] 04/28/2018 13:41:00 16:40:00 DIS Emergency BRITTA PRAKASH [facility] ER EAR PAIN;CHEST CONGESTI ON;COUGH [id number] 01/07/2018 11:35:00 15:23:00 DIS Emergency WESLEY WARE MD [facility] ER CHEST PAIN [id number] 12/13/2017 15:50:00 19:32:00 DIS Emergency WESLEY WARE MD [facility] ER ABD PAIN;WRIST PAIN [id number] 11/22/2017 16:59:00 018 19:22:00 DIS Emergency LUAN RYDER, DAX Stone [facility] ER R KNEE PAIN [id number] 09/23/2017 22:32:00 018 01:40:00 DIS Emergency GEE MULLEN, JOSÉ MIGUEL Junior [facility] ER STOMACH PAIN [id number] 01/16/2020 20:37:[address] Emergency JEANIE MULLEN, WESLEY Otero [facility] ER LLQ PAIN
--- NOTE | 2020-01-17 05:54 | Diagnostic Imaging Report ---
PROCEDURE: CT abdomen and pelvis with contrast. TECHNIQUE: Multiple contiguous axial images were obtained through the abdomen and pelvis after administration of intravenous contrast. Auto Exposure Controls were utilized during the CT exam to meet ALARA standards for radiation dose reduction. INDICATION: Left lower quadrant pain. FINDINGS: The previous CT abdomen/pelvis exam of 12/31/2019 failed to show any sign of an acute abnormality. However, there was progression of the bilateral inguinal and left iliac chain adenopathy that was initially noted on the prior exam of 07/20/2018. On this study, the bilateral inguinal and left iliac chain adenopathy noted on the prior study does not appear to have changed significantly. There are few diverticula in the sigmoid and descending colon but there is no evidence for acute diverticulitis. There is no pelvic mass or free fluid collection evident. The appendix was visualized and is not abnormally thickened. The uterus and urinary bladder are grossly unremarkable. The upper abdomen appear stable when compared to the prior study. There is a minute calculus within the gallbladder but there is no evidence for acute cholecystitis. The lung bases are clear. The bone windows show no evidence for fracture or for destructive lesion. IMPRESSION: 1. There is still no evidence for an acute abnormality of the abdomen or pelvis. 2. The bilateral inguinal adenopathy and left iliac chain adenopathy seen previously remain stable. 3. There is a minute calculus within the gallbladder but there is no evidence for acute cholecystitis. If further study of the gallbladder is desired, then ultrasound would be recommended. Dictated by: Dictated on workstation # [id number]
== END 2020-01-16 23:24 | disposition home or self-care (01) ==
LOC: EDUNIT# 20:35 → ER 20:37
DX: N39.0 Urinary tract infection, site not specified (principal); K80.20 Calculus of gallbladder without cholecystitis without obstruction; D64.9 Anemia, unspecified; K21.9 Gastro-esophageal reflux disease without esophagitis; F17.210 Nicotine dependence, cigarettes, uncomplicated; F17.290 Nicotine dependence, other tobacco product, uncomplicated; Z20.828 Contact with and (suspected) exposure to other viral communicable diseases
CPT/HCPCS: 36415; 74177; 80053; 80306; 81000; 83690; 84703; 85025; 86141; 87088

== ENCOUNTER 2020-02-01 19:14 | Emergency (ER) | payer MEDICAID ==
[~2020-02-01] VITALS: Ht 149.8 cm; Wt 99.8 kg
[~2020-02-01 19:14] MED LIST changes: +CEPH500T PO; +TRM50T PO
--- NOTE | 2020-02-01 19:37 | ED Abdominal Pain ---
General Stated Complaint: R SIDED PAIN Source of Information: Patient History of Present Illness Date Seen by Provider: Feb 01, 2020 Time Seen by Provider: 19:35 Initial Comments To ER with right lateral abdominal wall pain that began earlier today and has gotten progressively worse. Timing/Duration: 1-2 Days Severity/Quality: Moderate Radiation: No Radiation Activities at Onset: None Allergies and Home Medications Allergies Coded Allergies: No Known Drug Allergies (Unverified , 03/10/19) Home Medications Cefuroxime Axetil 250 Mg Tablet, 250 MG PO BID Prescribed by: KIM AYALA on 12/21/192233 Cephalexin 500 Mg Tablet, 500 MG PO BID Prescribed by: WESLEY WARE on 01/16/202302 Doxycycline Hyclate 100 Mg Tablet, 100 MG PO BID Prescribed by: CINDY YEPEZ on 12/31/192200 Ferrous Sulfate 325 Mg Tablet, 325 MG PO DAILY Prescribed by: KIM AYALA on 12/21/192233 Hydrocodone/Acetaminophen 1 Each Tablet, 1 TAB PO Q6H Prescribed by: CINDY YEPEZ on 12/31/192201 Omeprazole 40 Mg Capsule.dr, 40 MG PO DAILY Prescribed by: WESLEY WARE on 11/13/193 Ondansetron 4 Mg Tab.rapdis, 4 MG PO Q6H PRN for NAUSEA/VOMITING Prescribed by: WESLEY WARE on 11/13/193 Sucralfate 1 Gm Tablet, 1 GM PO QIDACHS Prescribed by: WESLEY WARE on 11/13/193 Tramadol HCl 50 Mg Tablet, 50 MG PO Q6H PRN for PAIN Prescribed by: WESLEY WARE on 01/16/202302 Patient Home Medication List Home Medication List Reviewed: Yes Review of Systems Review of Systems Constitutional: see HPI EENTM: No Symptoms Reported Respiratory: No Symptoms Reported Cardiovascular: No Symptoms Reported Gastrointestinal: See HPI, Abdominal Pain Genitourinary: No Symptoms Reported Musculoskeletal: no symptoms reported Skin: no symptoms reported Psychiatric/Neurological: No Symptoms Reported Endocrine: No Symptoms Reported Hematologic/Lymphatic: No Symptoms Reported Past Shqtqlq-Dydwwt-Decyym Hx Patient Social History Type Used: Cigarettes, Electronic/Vapor, Smokeless Tobacco 2nd Hand Smoke Exposure: Yes Recent Foreign Travel: No Contact w/Someone Who Travel: No Recent Hopitalizations: No Immunizations Up To Date Tetanus Booster (TDap): Less than 5yrs Seasonal Allergies Seasonal Allergies: No Past Medical History Surgeries: Yes (HERNIA) Abdominal, Section, Tubal Ligation Respiratory: Yes Asthma Cardiac: No Neurological: No 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 pylori) Gastroesophageal Reflux, Ulcer Musculoskeletal: No Endocrine: No HEENT: No Cancer: No Psychosocial: No Integumentary: No Blood Disorders: No Family Medical History No Pertinent Family Hx Physical Exam Vital Signs Capillary Refill : Height/Weight/BMI Height: 4'9.00" Weight: 205lbs. oz. 92.757655bu; 44.00 BMI Method:Stated General Appearance: WD/WN, no apparent distress, obese HEENT: PERRL/EOMI, normal ENT inspection Respiratory: no respiratory distress, no accessory muscle use Gastrointestinal: normal bowel sounds, soft, tenderness Extremities: normal range of motion, non-tender Pelvic: normal external exam Neurologic/Psychiatric: alert, normal mood/affect, oriented x 3 Skin: normal color, warm/dry Departure Impression Primary Impression: Right sided abdominal pain Disposition: 01 HOME, SELF-CARE Condition: Stable Departure-Patient Inst. Decision time for Depature: 19:37 Referrals: [facility] (PCP/Family) Primary Care Physician Patient Instructions: Acute Pain, Adult Add. Discharge Instructions: 1. Follow-up with your doctor. Return to ER for any concerns. Tylenol and ibuprofen for pain. KIM AYALA APRN Feb 01, 2020 19:37
[2020-02-01] MEDS ORDERED: KETOROLAC 60 MG/2 ML VIAL IM ONE (19:45)
[2020-02-01 19:57] LABS: BASOPHILS % (AUTO) 0 % (0-10); EOSINOPHILS # (AUTO) 0.2 10^3/uL (0.0-0.3); EOSINOPHILS % (AUTO) 3 % (0-10); HEMATOCRIT 25 % (35-52); HEMOGLOBIN 7.3 G/DL (11.5-16.0); LYMPHOCYTES # (AUTO) 2.6 X 10^3 (1.0-4.0); LYMPHOCYTES % (AUTO) 31 % (12-44); MEAN CORPUSCULAR HEMOGLOBIN 18 PG (25-34); MEAN CORPUSCULAR HGB CONC 30 G/DL (32-36); MEAN CORPUSCULAR VOLUME 61 FL (80-99); MEAN PLATELET VOLUME 10.7 FL (7.4-10.4); MONOCYTES # (AUTO) 0.8 X 10^3 (0.0-1.0); MONOCYTES % (AUTO) 9 % (0-12); NEUTROPHILS # (AUTO) 4.9 X 10^3 (1.8-7.8); NEUTROPHILS % (AUTO) 58 % (42-75); PLATELET COUNT 457 10^3/uL (130-400); RED CELL DISTRIBUTION WIDTH 18.7 % (10.0-14.5); WHITE BLOOD COUNT 8.5 10^3/uL (4.3-11.0)
[2020-02-01 20:02] LABS: CHLORIDE 110 MMOL/L (98-107); POTASSIUM 3.4 MMOL/L (3.6-5.0); SODIUM 140 MMOL/L (135-145)
[2020-02-01 20:03] LABS: CALCIUM 8.4 MG/DL (8.5-10.1)
[2020-02-01 20:04] LABS: GLUCOSE 96 MG/DL (70-105)
[2020-02-01 20:06] LABS: CARBON DIOXIDE 20 MMOL/L (21-32)
[2020-02-01 20:07] LABS: BILIRUBIN,TOTAL 0.2 MG/DL (0.1-1.0)
[2020-02-01 20:08] LABS: ALKALINE PHOSPHATASE 57 U/L (40-136); CREATININE SERUM 0.65 MG/DL (0.60-1.30); GFR ESTIMATED > 60
[2020-02-01 20:09] LABS: BUN/CREATININE RATIO 9
[2020-02-01 20:11] LABS: ALANINE AMINOTRANSFERASE 13 U/L (0-55)
[2020-02-01 20:33] LABS: BILIRUBIN,URINE NEGATIVE (NEGATIVE); CLARITY,URINE CLEAR; COLOR,URINE YELLOW; GLUCOSE, URINE (UA) NEGATIVE (NEGATIVE); KETONES,URINE NEGATIVE (NEGATIVE); LEUKOCYTE ESTERASE ,URINE NEGATIVE (NEGATIVE); NITRITE,URINE NEGATIVE (NEGATIVE); PROTEIN,URINE TRACE (NEGATIVE)
--- OUTSIDE RECORDS SUMMARY | 2020-02-01 20:41 | XMS REPORT | Continuity of Care Document ---
Author Organization Unknown Address Unknown Phone Unavailable Allergies Active Description Code Type Severity Reaction Onset Reported/Identified Relationship to Patient Clinical Status Yes No Known Drug Allergies [id number] Drug Allergy Unknown N/A 03/10/2019 Medications There [...] Ot J45.909 UNSPECIFIED ASTHMA, UNCOMPLICATED 09/29/2017 JOSÉ MIGEUL FLYNN MD Ot K25.9 GASTRIC ULCER, UNSP [...] J45.909 UNSPECIFIED ASTHMA, UNCOMPLICATED 02/05/2019 KIM AYALA EXCELLENCE CONSULTANT Ot L02.511 CUTANEOUS ABSCESS OF RIGHT HAND 02/05/2019 KIM AYALA EXCELLENCE CONSULTANT Ot M79.644 PAIN IN RIGHT FINGER(S) 02/05/2019 KIM AYALA EXCELLENCE CONSULTANT Ot Z98.51 TUBAL LIGATION STATUS 02/10/2019 KIM AYALA APRN Ot F17.290 NICOTINE DEPENDENCE, OTHER TOBACCO PRODU 02/10/2019 KIM AYALA APRN Ot J45.909 UNSPECIFIED ASTHMA, UNCOMPLICATED 02/10/2019 KIM AYALA APRN Ot L02.511 CUTANEOUS ABSCESS OF RIGHT HAND 02/10/2019 KIM AYALA EXCELLENCE CONSULTANT Ot M79.644 PAIN IN RIGHT FINGER(S) 02/10/2019 KIM AYALA EXCELLENCE CONSULTANT Ot Z98.51 TUBAL LIGATION STATUS 03/10/2019 CINDY [...] J45.909 UNSPECIFIED ASTHMA, UNCOMPLICATED 03/23/2019 KIM AYALA EXCELLENCE CONSULTANT Ot M79.662 PAIN IN LEFT LOWER LEG 03/23/2019 KIM AYALA EXCELLENCE CONSULTANT Ot S86.112A STRAIN MUSC/TEND POST GRP AT LOW LEG LEV 03/23/2019 KIM AYALA EXCELLENCE CONSULTANT Ot X58.XXXA EXPOSURE TO OTHER SPECIFIED FACTORS, [...] SPECIFIED POSTPROCEDURAL STATES 06/04/2019 MARY JO, SHANI COLD STORAGE SUPERVISOR Ot F17.290 NICOTINE DEPENDENCE, OTHER TOBACCO PRODU 06/04/2019 MARY JO, SHANI COLD STORAGE SUPERVISOR Ot J06.9 ACUTE UPPER RESPIRATORY INFECTION, UNSPE 06/04/2019 MARY JO, SHANI COLD STORAGE SUPERVISOR Ot J45.909 UNSPECIFIED ASTHMA, UNCOMPLICATED 06/04/2019 MARY JO, SHANI COLD STORAGE SUPERVISOR Ot R05 COUGH 06/04/2019 MARY JO, SHANI COLD STORAGE SUPERVISOR Ot R09.82 POSTNASAL DRIP 06/04/2019 MARY JO, SHANI COLD STORAGE SUPERVISOR Ot Z98.51 TUBAL LIGATION STATUS 06/09/2019 MARY JO, SHANI COLD STORAGE SUPERVISOR Ot F17.290 NICOTINE DEPENDENCE, OTHER TOBACCO PRODU 06/09/2019 MARY JO, SHANI COLD STORAGE SUPERVISOR Ot J06.9 ACUTE UPPER RESPIRATORY INFECTION, UNSPE 06/09/2019 MARY JO, SHANI COLD STORAGE SUPERVISOR Ot J45.909 UNSPECIFIED ASTHMA, UNCOMPLICATED 06/09/2019 SHANI CAMARGO COLD STORAGE SUPERVISOR Ot R05 COUGH 06/09/2019 SHANI CAMARGO COLD STORAGE SUPERVISOR Ot R09.82 POSTNASAL DRIP 06/09/2019 MARY JO SHANI COLD STORAGE SUPERVISOR Ot Z98.51 TUBAL LIGATION STATUS 09/11/2019 KIM AYALA APRN Ot D50 .9 IRON DEFICIENCY ANEMIA, UNSPECIFIED 09/11/2019 KIM AYALA APRN Ot J45.909 UNSPECIFIED ASTHMA, UNCOMPLICATED 09/11/2019 KIM AYALA APRN Ot R10 .2 PELVIC AND PERINEAL PAIN 09/11/2019 KIM AYALA APRN Ot Z77.22 CNTCT W AND EXPSR TO ENVIRON TOBACCO SMO 09/11/2019 KIM AYALA APRN Ot Z79.52 MCC (CURRENT) USE OF SYSTEMIC STER 11/07/2019 KIM [...] 11/07/2019 KIM AYALA APRN Ot Z79.899 OTHER MCC (CURRENT) DRUG THERAPY 11/07/2019 KIM AYALA APRN Ot Z87.19 PERSONAL HISTORY OF OTHER DISEASES OF 11/08/2019 KIM AYALA EXCELLENCE CONSULTANT Ot F17.290 NICOTINE DEPENDENCE, OTHER TOBACCO PRODU 11/08/2019 KIM AYALA APRN Ot J45.909 UNSPECIFIED ASTHMA, UNCOMPLICATED 11/08/2019 KIM AYALA EXCELLENCE CONSULTANT Ot R07 .1 CHEST PAIN ON BREATHING 11/08/2019 KIM AYALA EXCELLENCE CONSULTANT Ot R07 .9 CHEST PAIN, UNSPECIFIED 11/08/2019 KIM AYALA EXCELLENCE CONSULTANT Ot Z79.899 OTHER MCC (CURRENT) DRUG THERAPY 11/08/2019 KIM AYALA EXCELLENCE CONSULTANT Ot Z87.19 PERSONAL HISTORY OF OTHER DISEASES [...] J45.909 UNSPECIFIED ASTHMA, UNCOMPLICATED 12/05/2019 KIM AYALA EXCELLENCE CONSULTANT Ot R07 .1 CHEST PAIN ON BREATHING 12/05/2019 KIM AYALA EXCELLENCE CONSULTANT Ot R07 .9 CHEST PAIN, UNSPECIFIED 12/05/2019 KIM AYALA APRN Ot Z20.828 CONTACT W AND EXPOSURE TO OTH VIRAL COMM 12/05/2019 KIM AYALA APRN Ot Z79.899 OTHER MCC (CURRENT) DRUG THERAPY 12/05/2019 KIM AYALA EXCELLENCE CONSULTANT Ot Z87.19 PERSONAL HISTORY OF OTHER DISEASES OF 12/21/2019 AYALAKIM MARR APRN Ot B34 .9 VIRAL INFECTION, UNSPECIFIED 12/21/2019 AYALAKIM MARR APRN Ot J02 .9 ACUTE PHARYNGITIS, UNSPECIFIED 12/21/2019 AYALAKIM MARR APRN Ot K21 .9 GASTRO-ESOPHAGEAL REFLUX DISEASE WITHOUT 12/21/2019 AYALAKIM MARR APRN Ot N39 .0 URINARY TRACT INFECTION, SITE NOT SPECIF 12/21/2019 KIM AYALA APRN Ot Z20.828 CONTACT W AND EXPOSURE TO OTH VIRAL COMM 12/21/2019 AYALAKIM MARR EXCELLENCE CONSULTANT Ot Z77.22 CNTCT W AND EXPSR TO [...] W AND EXPOSURE TO OTH VIRAL COMM 01/18/2020 WESLEY WARE MD Ot D64. 9 ANEMIA, UNSPECIFIED 01/18/2020 WESLEY WARE MD Ot F17.210 NICOTINE DEPENDENCE, CIGARETTES, UNCOMPL 01/18/2020 WESLEY WARE MD Ot F17.290 NICOTINE DEPENDENCE, OTHER TOBACCO PRODU 01/18/2020 WESLEY WARE MD Ot K21. 9 GASTRO-ESOPHAGEAL REFLUX DISEASE WITHOUT 01/18/2020 WESLEY WARE MD, Ot K80. 20 CALCULUS OF GALLBLADDER W/O CHOLECYSTITI 01/18/2020 WESLEY WARE MD, Ot N39. 0 URINARY TRACT INFECTION, SITE NOT SPECIF 01/18/2020 WESLEY WARE MD, Ot R10. 31 RIGHT LOWER QUADRANT PAIN 01/18/2020 WESLEY WARE MD, Ot Z20.828 CONTACT W [...] culture SEE COMMEN NRG COLONY COUNT . NR Complete blood count (CBC) with automate [...] NRG SOURCE: Cervix NR STATEMENT OF ADEQUACY: NRG INTERPRETATION/RESULT: NRG STRIPPER AND TAPER: NRG HPV mRNA E6/E7, SUREPATH VIAL Not [...] PT panel in platelet poor plasma by [facility] ulation assay - 04/28/18 15:27 Prothrombin time [...] 16:58 Bacteria identification in wound by culture [id number] NRG FREE TEXT EXTERNAL RML SENT [...] 21:23 Bacteria identification in wound by culture [id number] NRG FREE TEXT EXTERNAL SUSCEPTIBILITY REPORTED [...] 7-25 CREATININE 0.55 mg/dL 0.50-1.10 eGFR NON-AFR. VINCENTIAN 122 mL/min/1.73m2 > OR = 60 eGFR [...] - 12/21/19 21:5 7 Bacterial throat culture [id number] NRG FREE TEXT EXTERNAL PLUS MODERATE NORMAL [...] (PCT) 0.02 ng/mL <0.10 Coronavirus SARS-CoV-2 SO 2018 - 0 18:55 Coronavirus Ab [Units/volume] in [...] TIVE Urine propoxyphene detection NEGATIVE N EGATIVE Bacterial urine culture - 01/16/20 20:52 Bacterial urine culture PROGRESS NRG COLONY COUNT . [facility] GC/CHLAMYDIA (SWAB OR URINE)-RAPID - 14:52 CHLAMYDIA TRACHOMATIS RNA, TMA NOT DETECTED NOT DETECTED NEISSERIA GONORRHOEAE RNA, TMA NOT DETECTED NOT DETECTED COMMENT [facility] PATHOLOGY REPORT (TISSUE PAHOLOGY) - 14:52 CLINICAL INFORMATION [facility] PATHOLOGIST [facility] TISSUE, SPECIMEN A - 01/28/20 14:52 A SOURCE NR A GROSS DESCRIPTION NR A DIAGNOSIS [facility] Complete blood count (CBC) with automate d white blood cell (WBC) differential - 02/01/20 19:45 Blood leukocytes automated count (number/volume) 8.5 10*3/uL 4.3-11.0 Blood erythrocytes automated count (number/volume) 4.08 10*6/uL 4.35-5.85 Venous blood hemoglobin measurement (mass/volume) 7.3 g/dL 11.5-16.0 Blood hematocrit (volume fraction) 25 % 35-52 Automated erythrocyte mean corpuscular volume 61 [ foz_us] 80-99 Automated erythrocyte mean corpuscular h emoglobin (mass per erythrocyte) 18 pg 25-34 Automated erythrocyte mean corpuscular h emoglobin concentration measurement (mass/volume) 30 g/dL 32-36 Automated erythrocyte distribution width ratio 18. 7 % 10.0- 14.5 Automated blood platelet count (count/volume) 457 10*3/uL 130-400 Automated blood platelet mean volume measurement 10.7 [foz_us] 7.4-10.4 Automated blood neutrophils/100 leukocytes 58 % 42-75 Automated blood lymphocytes/100 leukocytes 31 % 12-44 Blood monocytes/100 leukocytes 9 % 0-12 Automated blood eosinophils/100 leukocytes 3 % 0-10 Automated blood basophils/100 leukocytes 0 % 0-10 Blood neutrophils automated count (number/volume) 4.9 10*3 1.8-7.8 Blood lymphocytes automated count (number/volume) 2.6 10*3 1.0-4.0 Blood monocytes automated count (number/volume) 0. 8 10*3 0.0-1.0 Automated eosinophil count 0.2 10*3/uL 0 .0-0.3 Automated blood basophil count (count/volume) 0.0 10*3/uL 0.0-0.1 Comprehensive metabolic panel - 02/01/20 19:45 Serum or plasma sodium measurement (moles/volume) 140 mmol/L 135-145 Serum or plasma potassium measurement (moles/volume) 3.4 mmol/L 3.6-5.0 Serum or plasma chloride measurement (moles/volume) 110 mmol/L 98-107 Carbon dioxide 20 mmol/L 21-32 Serum or plasma anion gap determination (moles/volume) 10 mmol/L 5-14 Serum or plasma urea nitrogen measurement (mass/volume ) 6 mg/dL 7-18 Serum or plasma creatinine measurement (mass/volume) 0.65 mg/dL 0.60-1.30 Serum or plasma urea nitrogen/creatinine mass ratio 9 NRG Serum or plasma creatinine measurement w ith calculation of estimated glomerular filtration rate > NRG Serum or plasma glucose measurement (mass/volume) 96 mg/dL 70-105 Serum or plasma calcium measurement (mass/volume) 8.4 mg/dL 8.5-10.1 Serum or plasma total bilirubin measurement (mass/volu me) 0.2 mg/dL 0.1-1.0 Serum or plasma alkaline phosphatase miesha surement (enzymatic activity/volume) 57 U/L 40-136 Serum or plasma aspartate aminotransfera se measurement (enzymatic activity/volume) 18 U/L 5-34 Serum or plasma alanine aminotransferase measurement (enzymatic activity/volume) 13 U/L 0-55 Serum or plasma protein measurement (mass/volume) 8.0 g/dL 6.4-8.2 Serum or plasma albumin measurement (mass/volume) 4.0 g/dL 3.2-4.5 CALCIUM CORRECTED 8.4 mg/dL 8.5-10.1 Encounters ACCT No. Visit Date/Time Discharge Status Pt. Type Provider Facility Loc./Unit Complaint [id number] 01/28/2020 14:15:00 01/28/2020 23:59: 59 [facility] Outpatient ZAID LANGE [facility] [id number] 01/28/2020 14:15:00 Document Registration [id number] 01/14/2020 17:40:00 Document Registration [id number] 12/26/2019 14:20:00 Document Registration [id number] 11/14/2019 14:05:00 Document Registration [id number] 09/13/2019 13:20:00 Document Registration [id number] 07/26/2019 14:45:00 Document Registration [id number] 03/24/2018 10:20:00 Document Registration [id number] 12/05/2017 11:40:00 Document Registration [id number] 01/16/2020 20:37:00 23:24:00 DIS Outpatient JEANIE MULLEN, WESLEY Otero [facility] ER LLQ PAIN [id number] 12/31/2019 17:19:00 22:01:00 DIS Outpatient MARLENI MULLEN, CINDY Elise [facility] ER R SIDE/BACK FARHAD N [id number] 12/21/2019 21:46:00 23:31:00 DIS Emergency KIM AYALA APRN [facility] ER SORE THROAT [id number] 11/12/2019 22:39:00 00:07:00 DIS Emergency WESLEY WARE MD [facility] ER CHEST PAIN [id number] 11/07/2019 14:43:00 16:31:00 DIS Emergency KIM AYALA APRN [facility] ER CHEST PAIN [id number] 09/11/2019 20:45:00 23:05:00 DIS Emergency KIM AYALA APRN [facility] ER PAIN IN BOTH SIDES [id number] 06/04/2019 17:33:00 19:28:00 DIS Emergency SHANI CAMARGO [facility] ER SORE THROAT,BODY ACHES, DIZZINESS [id number] 05/03/2019 23:25:00 01:36:00 DIS Emergency WESLEY WARE MD [facility] ER PRESSURE AT CENTER OF C HEST,POSS YEAST INFECTION [id number] 04/01/2019 14:54:00 17:11:00 DIS Emergency DAX MACHADO [facility] ER R ANKLE PAIN [id number] 03/23/2019 16:09:00 17:06:00 DIS Emergency KIM AYALA APRN [facility] ER LEFT LEG PAIN [id number] 03/10/2019 19:04:00 21:35:00 DIS Emergency CINDY YEPEZ MD [facility] ER CHEST PAIN, SOB [id number] 02/05/2019 20:25:00 22:20:00 DIS Emergency KIM AYALA APRN [facility] ER R FINGER PAIN / DIZZY [id number] 07/20/2018 15:49:00 18:36:00 DIS Emergency BRITTA PRAKASH [facility] ER BURNING IN CHEST [id number] 04/28/2018 13:41:00 10/26/2 018 16:40:00 DIS Emergency BRITTA PRAKASH [facility] ER EAR PAIN;CHEST CONGESTI ON;COUGH [id number] 01/07/2018 11:35:00 018 15:23:00 DIS Emergency WESLEY WARE MD [facility] ER CHEST PAIN [id number] 12/13/2017 15:50:00 018 19:32:00 DIS Emergency WESLEY WARE MD [facility] ER ABD PAIN;WRIST PAIN [id number] 11/22/2017 16:59:00 018 19:22:00 DIS Emergency DAX MACHADO [facility] ER R KNEE PAIN [id number] 09/23/2017 22:32:00 018 01:40:00 DIS Emergency JOSÉ MIGUEL FLYNN MD [facility] ER STOMACH PAIN [id number] 02/01/2020 19:16:[address] Emergency KIM AYALA APRN [facility] ER R SIDED PAIN
[2020-02-01 20:47] LABS: BACTERIA,URINE FEW /HPF; RBC,URINE 0-2 /HPF
[2020-02-01 21:00] VITALS: BP 135/76
== END 2020-02-01 21:01 | disposition home or self-care (01) ==
LOC: EDUNIT# 19:14 → ER 19:16
DX: R10.9 Unspecified abdominal pain (principal); K21.9 Gastro-esophageal reflux disease without esophagitis; E66.9 Obesity, unspecified; F17.290 Nicotine dependence, other tobacco product, uncomplicated; Z68.41 Body mass index [BMI] 40.0-44.9, adult
CPT/HCPCS: 36415; 80053; 81000; 85025; 87088; 99284

== ENCOUNTER 2020-02-05 14:51 | Emergency (ER) | payer MEDICAID ==
[~2020-02-05] VITALS: Ht 147 cm; Wt 100.0 kg
[2020-02-05 15:25] LABS: BASOPHILS % (AUTO) 0 % (0-10); EOSINOPHILS # (AUTO) 0.1 10^3/uL (0.0-0.3); EOSINOPHILS % (AUTO) 2 % (0-10); HEMATOCRIT 25 % (35-52); HEMOGLOBIN 7.5 G/DL (11.5-16.0); LYMPHOCYTES % (AUTO) 30 % (12-44); MEAN CORPUSCULAR HEMOGLOBIN 18 PG (25-34); MEAN CORPUSCULAR HGB CONC 30 G/DL (32-36); MEAN CORPUSCULAR VOLUME 60 FL (80-99); MEAN PLATELET VOLUME 10.4 FL (7.4-10.4); MONOCYTES # (AUTO) 0.5 X 10^3 (0.0-1.0); MONOCYTES % (AUTO) 7 % (0-12); NEUTROPHILS # (AUTO) 4.3 X 10^3 (1.8-7.8); NEUTROPHILS % (AUTO) 62 % (42-75); PLATELET COUNT 419 10^3/uL (130-400); RED CELL DISTRIBUTION WIDTH 18.7 % (10.0-14.5); WHITE BLOOD COUNT 6.9 10^3/uL (4.3-11.0)
[2020-02-05 15:45] LABS: ALANINE AMINOTRANSFERASE 11 U/L (0-55); ALBUMIN 3.9 GM/DL (3.2-4.5); ALKALINE PHOSPHATASE 60 U/L (40-136); BILIRUBIN,TOTAL 0.2 MG/DL (0.1-1.0); BUN/CREATININE RATIO 11; CALCIUM 8.3 MG/DL (8.5-10.1); CARBON DIOXIDE 21 MMOL/L (21-32); CHLORIDE 108 MMOL/L (98-107); CREATININE SERUM 0.64 MG/DL (0.60-1.30); GFR ESTIMATED > 60; GLUCOSE 86 MG/DL (70-105); POTASSIUM 3.3 MMOL/L (3.6-5.0); SODIUM 138 MMOL/L (135-145); TOTAL PROTEIN 7.8 GM/DL (6.4-8.2)
[2020-02-05 16:02] LABS: BILIRUBIN,URINE NEGATIVE (NEGATIVE); CLARITY,URINE SL CLOUDY; COLOR,URINE DARK YELLOW; GLUCOSE, URINE (UA) NEGATIVE (NEGATIVE); KETONES,URINE NEGATIVE (NEGATIVE); LEUKOCYTE ESTERASE ,URINE NEGATIVE (NEGATIVE); NITRITE,URINE NEGATIVE (NEGATIVE); PROTEIN,URINE TRACE (NEGATIVE)
[2020-02-05 16:11] LABS: BACTERIA,URINE MODERATE /HPF; RBC,URINE TNTC /HPF; SQUAMOUS EPITHELIAL CELL,UR 0-2 /HPF; WBC,URINE RARE /HPF
--- NOTE | 2020-02-05 16:44 | Diagnostic Imaging Report ---
PROCEDURE: US Non-ob pelvis comp/trans. TECHNIQUE: Multiple realtime grayscale images were obtained of the pelvis in various projections endovaginally. Transabdominal imaging was also performed. INDICATION: Vaginal bleeding. FINDINGS: The uterus is retroverted measuring 10.5 x 5.6 x 5.2 cm. Endometrium is 9 mm in thickness. No definite myometrial mass is detected. Overall quality of study significantly limited. Ovaries cannot be visualized. Bowel gas precludes evaluation. There is no adnexal mass. Minimal free fluid is present. IMPRESSION: Limited study. No significant abnormality is detected. Dictated by: Dictated on workstation # [id number]
--- OUTSIDE RECORDS SUMMARY | 2020-02-05 16:47 | XMS REPORT | Continuity of Care Document ---
Author Organization Unknown Address Unknown Phone Unavailable Allergies Active Description Code Type Severity Reaction Onset Reported/Identified Relationship to Patient Clinical Status Yes No Known Drug Allergies [id number] Drug Allergy Unknown N/A 03/10/2019 Medications There [...] Ot R10. 84 GENERALIZED ABDOMINAL PAIN 01/07/2018 WELSEY WARE MD Ot Z86. 19 PERSONAL HISTORY [...] J45.909 UNSPECIFIED ASTHMA, UNCOMPLICATED 02/05/2019 KIM AYALA DIGITAL MARKETING ASSOCIATE Ot L02.511 CUTANEOUS ABSCESS OF RIGHT HAND 02/05/2019 KIM AYALA DIGITAL MARKETING ASSOCIATE Ot M79.644 PAIN IN RIGHT FINGER(S) 02/05/2019 KIM AYALA DIGITAL MARKETING ASSOCIATE Ot Z98.51 TUBAL LIGATION STATUS 02/10/2019 KIM AYALA APRN Ot F17.290 NICOTINE DEPENDENCE, OTHER TOBACCO PRODU 02/10/2019 KIM AYALA APRN Ot J45.909 UNSPECIFIED ASTHMA, UNCOMPLICATED 02/10/2019 KIM AYALA APRN Ot L02.511 CUTANEOUS ABSCESS OF RIGHT HAND 02/10/2019 KIM AYALA DIGITAL MARKETING ASSOCIATE Ot M79.644 PAIN IN RIGHT FINGER(S) 02/10/2019 KIM AYALA DIGITAL MARKETING ASSOCIATE Ot Z98.51 TUBAL LIGATION STATUS 03/10/2019 CINDY [...] MD Ot R06.02 SHORTNESS OF BREATH 03/17/2019 CINYD YEPEZ MD Ot R10.13 EPIGASTRIC PAIN 03/17/2019 CINDY YEPEZ MD Ot Z77.22 CNTCT W AND EXPSR TO ENVIRON TOBACCO SMO 03/17/2019 CINDY YEPEZ MD Ot Z98.51 TUBAL LIGATION STATUS 03/17/2019 CINDY YEPEZ MD Ot Z98.890 OTHER SPECIFIED POSTPROCEDURAL STATES 03/23/2019 KIM AYALA APRN Ot F17.290 NICOTINE DEPENDENCE, OTHER TOBACCO PRODU 03/23/2019 KIM AYALA APRN Ot J45.909 UNSPECIFIED ASTHMA, UNCOMPLICATED 03/23/2019 KIM AYALA DIGITAL MARKETING ASSOCIATE Ot M79.662 PAIN IN LEFT LOWER LEG 03/23/2019 KIM AYALA DIGITAL MARKETING ASSOCIATE Ot S86.112A STRAIN MUSC/TEND POST GRP AT LOW LEG LEV 03/23/2019 KIM AYALA DIGITAL MARKETING ASSOCIATE Ot X58.XXXA EXPOSURE TO OTHER SPECIFIED FACTORS, [...] PERSONAL HISTORY OF NICOTINE DEPENDENCE 05/08/2019 KOLBY AWRE MDUS J Ot Z98. 51 TUBAL LIGATION STATUS 05/08/2019 JEANIE MULLEN, WESLEY J Ot Z98.890 OTHER SPECIFIED POSTPROCEDURAL STATES 06/04/2019 MARY JO, SHANI SHOTGUN SHELL ASSEMBLY MACHINE ADJUSTER Ot F17.290 NICOTINE DEPENDENCE, OTHER TOBACCO PRODU 06/04/2019 MARY JO, SHANI SHOTGUN SHELL ASSEMBLY MACHINE ADJUSTER Ot J06.9 ACUTE UPPER RESPIRATORY INFECTION, UNSPE 06/04/2019 MARY JO, SHANI SHOTGUN SHELL ASSEMBLY MACHINE ADJUSTER Ot J45.909 UNSPECIFIED ASTHMA, UNCOMPLICATED 06/04/2019 MARY JO, SHANI SHOTG[employer] SHELL ASSEMBLY MACHINE ADJUSTER Ot R05 COUGH 06/04/2019 MARY JO, SHANI SHOTGUN SHELL ASSEMBLY MACHINE ADJUSTER Ot R09.82 POSTNASAL DRIP 06/04/2019 MARY JO, SHANI SHOTG[employer] SHELL ASSEMBLY MACHINE ADJUSTER Ot Z98.51 TUBAL LIGATION STATUS 06/09/2019 MARY JO, SHANI SHOTGUN SHELL ASSEMBLY MACHINE ADJUSTER Ot F17.290 NICOTINE DEPENDENCE, OTHER TOBACCO PRODU 06/09/2019 MAYR JO, SHANI SHOTGUN SHELL ASSEMBLY MACHINE ADJUSTER Ot J06.9 ACUTE UPPER RESPIRATORY INFECTION, UNSPE 06/09/2019 MARY JO, SHANI SHOTGUN SHELL ASSEMBLY MACHINE ADJUSTER Ot J45.909 UNSPECIFIED ASTHMA, UNCOMPLICATED 06/09/2019 SHANI CAMARGO SHOTGUN SHELL ASSEMBLY MACHINE ADJUSTER Ot R05 COUGH 06/09/2019 SHANI CAMARGO SHOTGUN SHELL ASSEMBLY MACHINE ADJUSTER Ot R09.82 POSTNASAL DRIP 06/09/2019 MARY JO SHANI SHOTGUN SHELL ASSEMBLY MACHINE ADJUSTER Ot Z98.51 TUBAL LIGATION STATUS 09/11/2019 KIM AYALA APRN Ot D50 .9 IRON DEFICIENCY ANEMIA, UNSPECIFIED 09/11/2019 KIM AYALA APRN Ot J45.909 UNSPECIFIED ASTHMA, UNCOMPLICATED 09/11/2019 KIM AYALA APRN Ot R10 .2 PELVIC AND PERINEAL PAIN 09/11/2019 KIM AYALA APRN Ot Z77.22 CNTCT W AND EXPSR TO ENVIRON TOBACCO SMO 09/11/2019 KIM AYALA APRN Ot Z79.52 CUSTODIAL (CURRENT) USE OF SYSTEMIC STER 11/07/2019 KIM [...] 11/07/2019 KIM AYALA APRN Ot Z79.899 OTHER CUSTODIAL (CURRENT) DRUG THERAPY 11/07/2019 KIM AYALA APRN Ot Z87.19 PERSONAL HISTORY OF OTHER DISEASES OF 11/08/2019 KIM AYALA DIGITAL MARKETING ASSOCIATE Ot F17.290 NICOTINE DEPENDENCE, OTHER TOBACCO PRODU 11/08/2019 KIM AYALA APRN Ot J45.909 UNSPECIFIED ASTHMA, UNCOMPLICATED 11/08/2019 KIM AYALA DIGITAL MARKETING ASSOCIATE Ot R07 .1 CHEST PAIN ON BREATHING 11/08/2019 KIM AYALA DIGITAL MARKETING ASSOCIATE Ot R07 .9 CHEST PAIN, UNSPECIFIED 11/08/2019 KIM AYALA DIGITAL MARKETING ASSOCIATE Ot Z79.899 OTHER CUSTODIAL (CURRENT) DRUG THERAPY 11/08/2019 KIM AYALA DIGITAL MARKETING ASSOCIATE Ot Z87.19 PERSONAL HISTORY OF OTHER DISEASES [...] J45.909 UNSPECIFIED ASTHMA, UNCOMPLICATED 12/05/2019 KIM AYALA DIGITAL MARKETING ASSOCIATE Ot R07 .1 CHEST PAIN ON BREATHING 12/05/2019 KIM AYALA DIGITAL MARKETING ASSOCIATE Ot R07 .9 CHEST PAIN, UNSPECIFIED 12/05/2019 KIM AYALA APRN Ot Z20.828 CONTACT W AND EXPOSURE TO OTH VIRAL COMM 12/05/2019 KIM AYALA APRN Ot Z79.899 OTHER CUSTODIAL (CURRENT) DRUG THERAPY 12/05/2019 KIM AYALA DIGITAL MARKETING ASSOCIATE Ot Z87.19 PERSONAL HISTORY OF OTHER DISEASES [...] TO OTH VIRAL COMM 12/21/2019 AYALAKIM MARR DIGITAL MARKETING ASSOCIATE Ot Z77.22 CNTCT W AND EXPSR TO [...] GASTRO-ESOPHAGEAL REFLUX DISEASE WITHOUT 01/18/2020 WESLEY WARE MD Ot K80. 20 CALCULUS OF GALLBLADDER W/O CHOLECYSTITI 01/18/2020 WESLEY WARE MD Ot N39. 0 URINARY TRACT INFECTION, SITE NOT SPECIF 01/18/2020 WESLEY WARE MD Ot R10. 31 RIGHT LOWER QUADRANT PAIN 01/18/2020 WESLEY WARE MD, Ot Z20.828 CONTACT W AND EXPOSURE TO OTH VIRAL COMM 02/04/2020 KIM AYALA APRN Ot E66 .9 OBESITY, UNSPECIFIED 02/04/2020 KIM AYALA APRN Ot F17.290 NICOTINE DEPENDENCE, OTHER TOBACCO PRODU 02/04/2020 KIM AYALA APRN Ot K21 .9 GASTRO-ESOPHAGEAL REFLUX DISEASE WITHOUT 02/04/2020 KIM AYALA APRN Ot R10 .9 UNSPECIFIED ABDOMINAL PAIN 02/04/2020 KIM AYALA APRN Ot Z68.41 BODY MASS INDEX (BMI) 40.0-44.9, ADULT Procedures There is no data. Results Test [...] NRG STATEMENT OF ADEQUACY: NRG INTERPRETATION/RESULT: NRG ESTHETICIAN AND MANAGER MEDICAL SPA: NRG HPV mRNA E6/E7, SUREPATH VIAL Not [...] 16:58 Bacteria identification in wound by culture [id number] NRG FREE TEXT EXTERNAL RML SENT [...] 21:23 Bacteria identification in wound by culture [id number] NRG FREE TEXT EXTERNAL SUSCEPTIBILITY REPORTED [...] 7-25 CREATININE 0.55 mg/dL 0.50-1.10 eGFR NON-AFR. BENINESE 122 mL/min/1.73m2 > OR = 60 eGFR [...] - 12/21/19 21:5 7 Bacterial throat culture [id number] NRG FREE TEXT EXTERNAL PLUS MODERATE NORMAL [...] C reactive protein measu rement (mass/volume) - 07/15/20 20:45 Serum or plasma C reactive protein [...] urine culture PROGRESS NRG COLONY COUNT . NRG GC/CHLAMYDIA (SWAB OR URINE)-RAPID - 14:52 CHLAMYDIA TRACHOMATIS RNA, TMA NOT DETECTED NOT DETECTED NEISSERIA GONORRHOEAE RNA, TMA NOT DETECTED NOT DETECTED COMMENT NRG PATHOLOGY REPORT (TISSUE PAHOLOGY) - 14:52 CLINICAL INFORMATION [facility] PATHOLOGIST [facility] TISSUE, SPECIMEN A - 01/28/20 14:52 A SOURCE [facility] A GROSS DESCRIPTION [facility] A DIAGNOSIS [facility] Complete blood count (CBC) with automate d [...] g/dL 3.2-4.5 CALCIUM CORRECTED 8.4 mg/dL 8.5-10.1 Complete urinalysis with reflex to cultu re - 02/01/20 20:25 Urine color determination YELLOW NRG Urine clarity determination CLEAR NR G Urine pH measurement by test strip 6.0 [...] cou nt by microscopy (number/high power field) [HPF] NRG Automated urine sediment leukocyte count [...] detection in urine sediment by light microscopy SMALL NRG Complete urinalysis with reflex to culture YES NRG Bacterial urine culture - 02/01/20 20:25 Bacterial urine culture 3 OR MORE NRG COLONY COUNT 70,000 cfu/ml NRG SUSCEPTIBILITY GRAM POSITIVE ISOLATES; SUGGESTING NRG MRSA SCREEN PROBABLE COLLECTION CONTAMINATION WITH NRG RAPID ID SKIN FAN. NO SUSCEPTIBILITY PERFORMED. NRG Encounters ACCT No. Visit Date/Time Discharge Status Pt. Type Provider Facility Loc./Unit Complaint [id number] 02/04/2020 10:30:00 ACT Outpatient ZAID LANGE [facility] [id number] 01/28/2020 14:15:00 Document Registration [id number] 01/14/2020 17:40:00 Document Registration [id number] 12/26/2019 14:20:00 Document Registration [id number] 11/14/2019 14:05:00 Document Registration [id number] 09/13/2019 13:20:00 Document Registration [id number] 07/26/2019 14:45:00 Document Registration [id number] 03/24/2018 10:20:00 Document Registration [id number] 12/05/2017 11:40:00 Document Registration [id number] 02/01/2020 19:16:00 21:01:00 DIS Outpatient KIM AYALA APRN [facility] R SIDED PAIN [id number] 01/16/2020 20:37:00 23:24:00 DIS Outpatient WESLEY WARE MD [facility] ER LLQ PAIN [id number] 12/31/2019 17:19:00 22:01:00 DIS Outpatient MARLENI MULLEN, CINDY Elise [facility] ER R SIDE/BACK FARHAD N [id number] 12/21/2019 21:46:00 23:31:00 DIS Emergency KIM AYALA APRN [facility] ER SORE THROAT [id number] 11/12/2019 22:39:00 00:07:00 DIS Emergency WESLEY WARE MD [facility] ER CHEST PAIN [id number] 11/07/2019 14:43:00 16:31:00 DIS Emergency KIM AYALA APRN [facility] CHEST PAIN [id number] 09/11/2019 20:45:00 23:05:00 DIS Emergency KIM AYALA APRN [facility] ER PAIN IN BOTH SIDES [id number] 06/04/2019 17:33:00 19:28:00 DIS Emergency SHANI CAMARGO [facility] ER SORE THROAT,BODY ACHES, DIZZINESS [id number] 05/03/2019 23:25:00 01:36:00 DIS Emergency WESLEY WARE MD [facility] ER PRESSURE AT CENTER OF C HEST,POSS YEAST INFECTION [id number] 04/01/2019 14:54:00 17:11:00 DIS Emergency DAX MACHADO [facility] ER R ANKLE PAIN [id number] 03/23/2019 16:09:00 17:06:00 DIS Emergency KIM AYALA APRN [facility] ER LEFT LEG PAIN [id number] 03/10/2019 19:04:00 21:35:00 DIS Emergency CINDY YEPEZ MD [facility] ER CHEST PAIN, SOB [id number] 02/05/2019 20:25:00 22:20:00 DIS Emergency KIM AYALA APRN [facility] ER R FINGER PAIN / DIZZY [id number] 07/20/2018 15:49:00 18:36:00 DIS Emergency BRITTA PRAKASH [facility] ER BURNING IN CHEST [id number] 04/28/2018 13:41:00 16:40:00 DIS Emergency BRITTA PRAKASH [facility] ER EAR PAIN;CHEST CONGESTI ON;COUGH [id number] 01/07/2018 11:35:00 018 15:23:00 DIS Emergency JEANIE MULLEN, WESLEY Otero [facility] ER CHEST PAIN [id number] 12/13/2017 15:50:00 018 19:32:00 DIS Emergency JEANIE MULLEN, WESLEY Otero [facility] ER ABD PAIN;WRIST PAIN [id number] 11/22/2017 16:59:00 018 19:22:00 DIS Emergency DAX MACHADO [facility] ER R KNEE PAIN [id number] 09/23/2017 22:32:00 018 01:40:00 DIS Emergency GEE MULLEN, JOSÉ MIGUEL Junior [facility] ER STOMACH PAIN [id number] 02/05/2020 14:52:[address] Emergency BRITTA PRAKASH [facility] ER ABD PAIN;ABNORMAL VAGINAL BL EEDING
[2020-02-05] MEDS ORDERED: FERR-84 PO (16:50)
[2020-02-05] MEDS ORDERED: NITR-65 PO (16:50)
--- NOTE | 2020-02-05 16:50 | ED Abdominal Pain ---
General Chief Complaint: Female Reproductive Stated Complaint: ABD PAIN;ABNORMAL VAGINAL BLEEDING Nursing Triage Note: PT CO OF HEAVY PERIOD, PT STATES LAST PERIOD END OF DECEMBER STARTED YESTERDAY AND HAS BEEN BLEEDING HEAVILY 1+ PAD PER HOUR. PT STATES HAVING CRAMPING. STATES HAS NOT HAD SEX FOR 2 MONTHS. Sepsis Screen: No Definite Risk Source of Information: Patient Exam Limitations: No Limitations History of Present Illness Date Seen by Provider: Feb 05, 2020 Time Seen by Provider: 15:07 Initial Comments 34-year-old female who presents to emergency room with complaints of vaginal bleeding and a painful menstrual cycle. She reports that she did not have a cycle at the end of December like she was posted to started her his late today. She reports that she has been having increased cramping and denies any sexual activity for the past 2 months. Patient has had a history of tubal ligation. Timing/Duration: 1-2 Days Associated Symptoms: Denies Symptoms Allergies and Home Medications Allergies Coded Allergies: No Known Drug Allergies (Unverified , 03/10/19) Home Medications Cefuroxime Axetil 250 Mg Tablet, 250 MG PO BID Prescribed by: KIM AYALA on 12/21/192233 Cephalexin 500 Mg Tablet, 500 MG PO BID Prescribed by: WESLEY WARE on 01/16/202302 Doxycycline Hyclate 100 Mg Tablet, 100 MG PO BID Prescribed by: CINDY YEPEZ on 12/31/192200 Ferrous Sulfate 325 Mg Tablet, 325 MG PO DAILY Prescribed by: KIM AYALA on 12/21/192233 Hydrocodone/Acetaminophen 1 Each Tablet, 1 TAB PO Q6H Prescribed by: CINDY YEPEZ on 12/31/192201 Omeprazole 40 Mg Capsule.dr, 40 MG PO DAILY Prescribed by: WESLEY WARE on 11/13/193 Ondansetron 4 Mg Tab.rapdis, 4 MG PO Q6H PRN for NAUSEA/VOMITING Prescribed by: WESLEY WARE on 11/13/193 Sucralfate 1 Gm Tablet, 1 GM PO QIDACHS Prescribed by: WESLEY WARE on 11/13/193 Tramadol HCl 50 Mg Tablet, 50 MG PO Q6H PRN for PAIN Prescribed by: WESLEY WARE on 01/16/202302 Patient Home Medication List Home Medication List Reviewed: Yes Review of Systems Review of Systems Constitutional: see HPI; No chills, No fever Genitourinary: See HPI, Other (vaginal bleeding) All Other Systems Reviewed Negative Unless Noted: Yes Past Fivvrtb-Eurodd-Dkawba Hx Past Med/Social Hx: Reviewed Nursing Past Med/Soc Hx Patient Social History Alcohol Use: Denies Use Recreational Drug Use: No Smoking Status: Current Everyday Smoker Type Used: Cigarettes, Electronic/Vapor, Smokeless Tobacco 2nd Hand Smoke Exposure: Yes Recent Foreign Travel: No Contact w/Someone Who Travel: No Recent Infectious Disease Expo: No Recent Hopitalizations: No Immunizations Up To Date Tetanus Booster (TDap): Less than 5yrs Seasonal Allergies Seasonal Allergies: No Past Medical History Surgeries: Yes (HERNIA) Abdominal, Section, Tubal Ligation Respiratory: Yes Asthma Cardiac: No Neurological: No : No Last Menstrual Period: Jan 01, 2020 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 pylori) Gastroesophageal Reflux, Ulcer Musculoskeletal: No Endocrine: No HEENT: No Cancer: No Psychosocial: No Integumentary: No Blood Disorders: No Family Medical History Reviewed Nursing Family Hx No Pertinent Family Hx Physical Exam Vital Signs Vital Signs - First Documented 02/05/20 15:05 Temp 37.1 Pulse 79 Resp 18 B/P (MAP) 128/82 (97) Pulse Ox 100 Capillary Refill : Less Than 3 Seconds Height/Weight/BMI Height: 4'9.00" Weight: 205lbs. oz. 92.801240bf; 46.00 BMI Method:Stated General Appearance: WD/WN, no apparent distress Respiratory: chest non-tender, lungs clear, normal breath sounds, no respiratory distress, no accessory muscle use Cardiovascular: normal peripheral pulses, regular rate, rhythm, no edema, no gallop, no JVD, no murmur Gastrointestinal: normal bowel sounds, non tender, soft, no organomegaly, no pulsatile mass Extremities: normal capillary refill Neurologic/Psychiatric: alert, normal mood/affect, oriented x 3 Skin: normal color, warm/dry Progress/Results/Core Measures Results/Orders Lab Results Laboratory Tests Test 02/05/20 15:10 02/05/20 15:50 Range/Units White Blood Count 6.9 4.3-11.0 10^3/uL Red Blood Count 4.22 L 4.35-5.85 10^6/uL Hemoglobin 7.5 L 11.5-16.0 G/DL Hematocrit 25 L 35-52 % Mean Corpuscular Volume 60 L 80-99 FL Mean Corpuscular Hemoglobin 18 L 25-34 PG Mean Corpuscular Hemoglobin Concent 30 L 32-36 G/DL Red Cell Distribution Width 18.7 H 10.0-14.5 % Platelet Count 419 H 130-400 10^3/uL Mean Platelet Volume 10.4 7.4-10.4 FL Neutrophils (%) (Auto) 62 42-75 % Lymphocytes (%) (Auto) 30 12-44 % Monocytes (%) (Auto) 7 0-12 % Eosinophils (%) (Auto) 2 0-10 % Basophils (%) (Auto) 0 0-10 % Neutrophils # (Auto) 4.3 1.8-7.8 X 10^3 Lymphocytes # (Auto) 2.0 1.0-4.0 X 10^3 Monocytes # (Auto) 0.5 0.0-1.0 X 10^3 Eosinophils # (Auto) 0.1 0.0-0.3 10^3/uL Basophils # (Auto) 0.0 0.0-0.1 10^3/uL Sodium Level 138 135-145 MMOL/L Potassium Level 3.3 L 3.6-5.0 MMOL/L Chloride Level 108 H 98-107 MMOL/L Carbon Dioxide Level 21 21-32 MMOL/L Anion Gap 9 5-14 MMOL/L Blood Urea Nitrogen 7 7-18 MG/DL Creatinine 0.64 0.60-1.30 MG/DL Estimat Glomerular Filtration Rate > 60 BUN/Creatinine Ratio 11 Glucose Level 86 70-105 MG/DL Calcium Level 8.3 L 8.5-10.1 MG/DL Corrected Calcium 8.4 L 8.5-10.1 MG/DL Total Bilirubin 0.2 0.1-1.0 MG/DL Aspartate Amino Transf (AST/SGOT) 17 5-34 U/L Alanine Aminotransferase (ALT/SGPT) 11 0-55 U/L Alkaline Phosphatase 60 40-136 U/L Total Protein 7.8 6.4-8.2 GM/DL Albumin 3.9 3.2-4.5 GM/DL Urine Color DARK YELLOW Urine Clarity SL CLOUDY Urine pH 6.0 5-9 Urine Specific Noble >=1.030 1.016-1.022 Urine Protein TRACE H NEGATIVE Urine Glucose (UA) NEGATIVE NEGATIVE Urine Ketones NEGATIVE NEGATIVE Urine Nitrite NEGATIVE NEGATIVE Urine Bilirubin NEGATIVE NEGATIVE Urine Urobilinogen 0.2 < = 1.0 MG/DL Urine Leukocyte Esterase NEGATIVE NEGATIVE Urine RBC (Auto) 3+ H NEGATIVE Urine RBC TNTC H /HPF Urine WBC RARE /HPF Urine Squamous Epithelial Cells 0-2 /HPF Urine Crystals NONE /LPF Urine Bacteria MODERATE H /HPF Urine Casts NONE /LPF Urine Mucus NEGATIVE /LPF Urine Culture Indicated YES My Orders Orders - BRITTA PRAKASH Comprehensive Metabolic Panel (02/05/20 15:07) Ua Culture If Indicated (02/05/20 15:07) Urine Bedside (02/05/20 15:07) Ed Iv/Invasive Line Start (02/05/20 15:07) Cbc With Automated Diff (02/05/20 15:07) Us Non Ob Pelvis Comp/Transvag (02/05/20 15:38) Urine Culture (02/05/20 15:50) Vital Signs/I&O 02/05/20 15:05 Temp 37.1 Pulse 79 Resp 18 B/P (MAP) 128/82 (97) Pulse Ox 100 Blood Pressure Mean: 97 Progress Progress Note : Time: 16:46 Progress Note I have seen and evaluated the patient. I have discussed the case with Dr. Renteria at this time. She recommends starting the patient on 325 mg of ferrous sulfate daily and having her follow-up with CHAIR INSPECTOR at the clinic later this week. Patient agrees with plan of care, plans for discharge, return precautions were given. Departure Impression Primary Impression: Urinary tract infection Additional Impression: Irregular menstrual bleeding Disposition: 01 HOME, SELF-CARE Condition: Stable/Unchanged Departure-Patient Inst. Decision time for Depature: 16:48 Referrals: [facility] (PCP/Family) Primary Care Physician Patient Instructions: Urinary Tract Infection, Adult (DC) Add. Discharge Instructions: Take medications as directed. Call today to schedule an appointment time with Dr. Renteria or Dr. Francois at the clinic to be seen later this week or first thing next week. Return back to the emergency room for worsening symptoms or concerns as needed. You may use a daily stool softener or suppository should you experience any constipation from the iron. All discharge instructions reviewed with patient and/or family. Voiced understanding. Scripts Ferrous Sulfate (Iron) 325 Mg Tablet 325 MG PO DAILY for 14 Days, #14 TAB Prov: BRITTA PRAKASH 02/05/20 Nitrofurantoin Monohyd/M-Cryst (Macrobid 100 mg Capsule) 100 Mg Capsule 1 TAB PO BID for 5 Days, #10 CAP Prov: BRITTA PRAKASH 02/05/20 BRITTA PRAKASH Feb 05, 2020 16:50
[2020-02-05 17:14] VITALS: BP 118/70
== END 2020-02-05 17:14 | disposition home or self-care (01) ==
LOC: EDUNIT# 14:51 → ER 14:52
DX: N39.0 Urinary tract infection, site not specified (principal); N92.6 Irregular menstruation, unspecified; K21.9 Gastro-esophageal reflux disease without esophagitis; F17.290 Nicotine dependence, other tobacco product, uncomplicated; Z98.51 Tubal ligation status
CPT/HCPCS: 36415; 76830; 76856; 80053; 81000; 84703; 85025; 87088

== ENCOUNTER 2020-03-02 17:19 | Emergency (ER) | payer MEDICAID ==
[~2020-03-02] VITALS: Ht 149 cm; Wt 98.0 kg
[~2020-03-02 17:19] MED LIST changes: +FERR-84 PO; +NITR-65 PO
--- NOTE | 2020-03-02 17:44 | ED Abdominal Pain ---
General Chief Complaint: Abdominal/GI Problems Stated Complaint: ABD PAIN Source of Information: Patient Exam Limitations: No Limitations ([employer]) History of Present Illness Date Seen by Provider: Mar 02, 2020 Time Seen by Provider: 17:21 Initial Comments This is a 34 y/o F with hx of recurrent abd pain who presents today with diffuse abd pain worse around her midsection and R-quadrant. States pain onset 1 wk ago, is sharp and non-progressive in nature, and rates it a 10/10 on pain scale. States she has also been having diarrhea for 1 month which was present even before her recent use of abx (last dose was last week). Also c/o of chills. She denies any dysuria, frequency, foul odor to urine, hematuria, change in vaginal discharge, hematochezia, melena, N/V, fever, bodyaches, loss of sense of smell or taste.Has taken Ibuprofen 400mg of ibuprofen for pain at 1100 today, with minimal relief. Reports history of 4 C-Sections, tubal ligation, and umbilical hernia. Denies hx of cholecystectomy or appendectomy. Timing/Duration: 1 Week Severity/Quality: Moderate Location: Generalized Abdomen ([employer]) Initial Comments Reports eating and drinking okay. States that pain has been worse when stepping up on a ladder. Pain overall worse today and described as quite sharp. Associated Symptoms: Back Pain; No Chest Pain, No Nausea/Vomiting, No Shortness of Air, No Swelling/Mass in Abdomen, No Weakness (CINDY YEPEZ MD) Allergies and Home Medications Allergies Coded Allergies: No Known Drug Allergies (Unverified , 03/10/19) Home Medications Cefuroxime Axetil 250 Mg Tablet, 250 MG PO BID Prescribed by: KIM AYALA on 12/21/192233 Cephalexin 500 Mg Tablet, 500 MG PO BID Prescribed by: WESLEY WARE on 01/16/202302 Ciprofloxacin HCl 500 Mg Tablet, 500 MG PO BID Prescribed by: JOSÉ MIGUEL POLLARD on 03/02/201999 Doxycycline Hyclate 100 Mg Tablet, 100 MG PO BID Prescribed by: CINDY YEPEZ on 12/31/192200 Ferrous Sulfate 325 Mg Tablet, 325 MG PO DAILY Prescribed by: KIM AYALA on 12/21/192233 Ferrous Sulfate 325 Mg Tablet, 325 MG PO DAILY Prescribed by: BRITTA PRAKASH on 02/05/201649 Hydrocodone/Acetaminophen 1 Each Tablet, 1 TAB PO Q6H Prescribed by: CINDY YEPEZ on 12/31/192201 Metronidazole 500 Mg Tablet, 500 MG PO TID Prescribed by: JOSÉ MIGUEL POLLARD on 03/02/201999 Nitrofurantoin Monohyd/M-Cryst 100 Mg Capsule, 1 TAB PO BID Prescribed by: BRITTA PRAKASH on 02/05/201649 Omeprazole 40 Mg Capsule.dr, 40 MG PO DAILY Prescribed by: WESLEY WARE on 11/13/193 Ondansetron 4 Mg Tab.rapdis, 4 MG PO Q6H PRN for NAUSEA/VOMITING Prescribed by: WESLEY WAER on 11/13/193 Sucralfate 1 Gm Tablet, 1 GM PO QIDACHS Prescribed by: WESLEY WARE on 11/13/193 Tramadol HCl 50 Mg Tablet, 50 MG PO Q6H PRN for PAIN Prescribed by: WESLEY WARE on 01/16/202302 Tramadol HCl 50 Mg Tablet, 50 MG PO Q6H PRN for PAIN-BREAKTHROUGH Prescribed by: JOSÉ MIGUEL POLLARD on 03/02/202000 Patient Home Medication List Home Medication List Reviewed: Yes (CINDY YEPEZ MD) Review of Systems Review of Systems Constitutional: see HPI; No chills, No fever EENTM: No Symptoms Reported Respiratory: No Symptoms Reported Cardiovascular: No Symptoms Reported Gastrointestinal: See HPI, Abdominal Pain, Diarrhea, Nausea; Denies Rectal Bleeding, Denies Vomiting Genitourinary: Denies Discharge, Denies Flank Pain, Denies Hematuria Musculoskeletal: back pain; No joint pain Skin: no symptoms reported (CINDY YEPEZ MD) All Other Systems Reviewed Negative Unless Noted: Yes (CINDY YEPEZ MD) Past Yndyjfo-Zfyiue-Rpinwo Hx Past Med/Social Hx: Reviewed Nursing Past Med/Soc Hx (CINDY YEPEZ MD) Patient Social History Type Used: Cigarettes, Electronic/Vapor, Smokeless Tobacco 2nd Hand Smoke Exposure: Yes Recent Foreign Travel: No Contact w/Someone Who Travel: No Recent Hopitalizations: No ([employer]) Alcohol Use: Denies Use Recreational Drug Use: No Smoking Status: Never a Smoker (CINDY YEPEZ MD) Immunizations Up To Date Tetanus Booster (TDap): Less than 5yrs ([employer]) Seasonal Allergies Seasonal Allergies: No ([employer]) Past Medical History Surgeries: Yes (HERNIA) Abdominal, Section, Tubal Ligation Respiratory: Yes Asthma Cardiac: No 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 pylori) Gastroesophageal Reflux, Ulcer Musculoskeletal: No Endocrine: No HEENT: No Cancer: No Psychosocial: No Integumentary: No Blood Disorders: No ([employer]) Family Medical History Reviewed Nursing Family Hx (CINDY YEPEZ MD) No Pertinent Family Hx ([employer]) Physical Exam Vital Signs Vital Signs - First Documented 03/02/20 17:25 Temp 36.6 Pulse 75 Resp 24 B/P (MAP) 140/79 (99) Pulse Ox 100 (CINDY YEPEZ MD) Vital Signs Capillary Refill : ([employer]) Height/Weight/BMI Height: 4'9.00" Weight: 205lbs. oz. 92.716991wo; 46.00 BMI Method:Stated ([employer]) General Appearance: WD/WN, no apparent distress, obese HEENT: PERRL/EOMI, pharynx normal Neck: full range of motion, supple Respiratory: lungs clear, normal breath sounds Cardiovascular: regular rate, rhythm, no murmur Gastrointestinal: soft, tenderness (right side of the abdomen and pubic) Extremities: non-tender, normal inspection Back: normal inspection, no CVA tenderness, no vertebral tenderness Neurologic/Psychiatric: alert, oriented x 3 Skin: normal color, warm/dry (CINDY YEPEZ MD) Progress/Results/Core Measures Results/Orders Lab Results Laboratory Tests Test 03/02/20 17:30 Range/Units Urine Color YELLOW Urine Clarity SL CLOUDY Urine pH 5.5 5-9 Urine Specific [place] >=1.030 1.016-1.022 Urine Protein TRACE H NEGATIVE Urine Glucose (UA) NEGATIVE NEGATIVE Urine Ketones NEGATIVE NEGATIVE Urine Nitrite NEGATIVE NEGATIVE Urine Bilirubin NEGATIVE NEGATIVE Urine Urobilinogen 0.2 < = 1.0 MG/DL Urine Leukocyte Esterase 2+ H NEGATIVE Urine RBC (Auto) NEGATIVE NEGATIVE Urine RBC RARE /HPF Urine WBC 50-100 H /HPF Urine Squamous Epithelial Cells 10-25 H /HPF Urine Crystals NONE /LPF Urine Bacteria MODERATE H /HPF Urine Casts NONE /LPF Urine Mucus SMALL H /LPF Urine Culture Indicated YES (CINDY YEPEZ MD) My Orders Orders - CINDY YEPEZ MD Ua Culture If Indicated (03/02/20 17:33) Cbc With Automated Diff (03/02/20 17:45) Comprehensive Metabolic Panel (03/02/20 17:45) Hs C Reactive Protein (03/02/20 17:45) Ed Iv/Invasive Line Start (03/02/20 17:45) Lactated Ringers (Lr 1000 Ml Iv Solution (03/02/20 17:45) Hcg,Qualitative Serum (03/02/20 17:45) Ketorolac Injection (Toradol Injection) (03/02/20 17:49) (CINDY YEPEZ MD) Vital Signs/I&O 03/02/20 17:25 Temp 36.6 Pulse 75 Resp 24 B/P (MAP) 140/79 (99) Pulse Ox 100 (CINDY YEPEZ MD) Progress Progress Note : Progress Note Seen and evaluated. IV, labs, UA, LR 1 L bolus and Toradol 30 mg IV ordered. 1800: Care transferred to Dr. Pollard pending all labs. Monitor patient. (CINDY YEPEZ MD) Progress Note : Progress Note care of this patient was assumed from Dr. Yepez at shift change. Labs were reviewed. CRP and WBC were low. ESR was moderately elevated. Patient's recurrent abdominal pain with persistent anemia and elevated ESR trigger concern for possible inflammatory bowel disease. Patient was strongly encouraged to visit with her primary care provider about this and seek colonoscopy. Urinary tract infection was again identified. She was given Rocephin by IV route and Cipro orally to start treatment. Flagyl was added as well as there may be an inflammatory bowel component. (JOSÉ MIGUEL FLYNN MD) Departure Impression Primary Impression: Recurrent abdominal pain Additional Impressions: Anemia Qualified Codes: D64.9 - Anemia, unspecified Urinary tract infection Qualified Codes: N39.0 - Urinary tract infection, site not specified Hypokalemia Disposition: 01 HOME, SELF-CARE Condition: Improved Departure-Patient Inst. Referrals: [facility] (PCP/Family) Primary Care Physician Patient Instructions: Severe Abdominal Pain, Adult (DC), Urinary Tract In fection, Adult (DC) Add. Discharge Instructions: Start with a clear liquid diet for the next 24 hours. Then gradually advance your diet with small quantities of bland food as tolerated. For pain start with Tylenol (acetaminophen) up to 1000 mg every 6 hours as needed. Add Ultram (tramadol) as prescribed for further pain control. Avoid use of NSAIDs such as ibuprofen, naproxen, etc. Promptly follow-up with your primary care provider. Discuss options for further evaluation which might include ultrasound of the gallbladder and a colonoscopy. Return to care if you have worsening symptoms. Complete your antibiotics as prescribed and review urine culture results with your primary care provider later this week. All discharge instructions reviewed with patient and/or family. Voiced understanding. Scripts Tramadol HCl (Ultram) 50 Mg Tablet 50 MG PO Q6H PRN for PAIN-BREAKTHROUGH, #14 TAB Prov: JOSÉ MIGUEL FLYNN MD 03/02/20 Metronidazole (Flagyl) 500 Mg Tablet 500 MG PO TID, #20 TAB Prov: JOSÉ MIGUEL FLYNN MD 03/02/20 Ciprofloxacin HCl (Ciprofloxacin HCl) 500 Mg Tablet 500 MG PO BID, #14 TAB Prov: JOSÉ MIGUEL FLYNN MD 03/02/20 Copy Copies To 1: [email or web address] Mar 02, 2020 17:44 CINDY YEPEZ MD Mar 02, 2020 17:58 JOSÉ MIGUEL FLYNN MD Mar 02, 2020 19:49
[2020-03-02] MEDS ORDERED: LACTATED RINGERS 1,000 ML IV ONE (17:45)
[2020-03-02 17:46] LABS: BILIRUBIN,URINE NEGATIVE (NEGATIVE); CLARITY,URINE SL CLOUDY; COLOR,URINE YELLOW; GLUCOSE, URINE (UA) NEGATIVE (NEGATIVE); KETONES,URINE NEGATIVE (NEGATIVE); LEUKOCYTE ESTERASE ,URINE 2+ (NEGATIVE); NITRITE,URINE NEGATIVE (NEGATIVE); PH,URINE 5.5 (5-9); PROTEIN,URINE TRACE (NEGATIVE)
[2020-03-02] MEDS ORDERED: KETOROLAC 30 MG/ML VIAL IVP STA (17:49)
[2020-03-02 17:54] LABS: BACTERIA,URINE MODERATE /HPF; RBC,URINE RARE /HPF; WBC,URINE 50-100 /HPF
[2020-03-02 18:04] LABS: BASOPHILS % (AUTO) 0 % (0-10); EOSINOPHILS # (AUTO) 0.1 10^3/uL (0.0-0.3); EOSINOPHILS % (AUTO) 1 % (0-10); HEMATOCRIT 25 % (35-52); HEMOGLOBIN 7.2 G/DL (11.5-16.0); LYMPHOCYTES # (AUTO) 2.7 X 10^3 (1.0-4.0); LYMPHOCYTES % (AUTO) 28 % (12-44); MEAN CORPUSCULAR HEMOGLOBIN 18 PG (25-34); MEAN CORPUSCULAR HGB CONC 29 G/DL (32-36); MEAN CORPUSCULAR VOLUME 60 FL (80-99); MONOCYTES # (AUTO) 0.8 X 10^3 (0.0-1.0); MONOCYTES % (AUTO) 9 % (0-12); NEUTROPHILS # (AUTO) 5.8 X 10^3 (1.8-7.8); NEUTROPHILS % (AUTO) 62 % (42-75); PLATELET COUNT 385 10^3/uL (130-400); RED CELL DISTRIBUTION WIDTH 19.2 % (10.0-14.5); WHITE BLOOD COUNT 9.4 10^3/uL (4.3-11.0)
[2020-03-02 18:17] LABS: CHLORIDE 107 MMOL/L (98-107); POTASSIUM 3.1 MMOL/L (3.6-5.0); SODIUM 138 MMOL/L (135-145)
[2020-03-02 18:18] LABS: CALCIUM 8.3 MG/DL (8.5-10.1)
[2020-03-02 18:19] LABS: GLUCOSE 94 MG/DL (70-105)
[2020-03-02 18:21] LABS: BILIRUBIN,TOTAL 0.2 MG/DL (0.1-1.0); CARBON DIOXIDE 20 MMOL/L (21-32)
[2020-03-02 18:23] LABS: ALKALINE PHOSPHATASE 60 U/L (40-136); CREATININE SERUM 0.64 MG/DL (0.60-1.30); GFR ESTIMATED > 60
[2020-03-02 18:24] LABS: BUN/CREATININE RATIO 13
[2020-03-02 18:26] LABS: ALANINE AMINOTRANSFERASE 14 U/L (0-55)
[2020-03-02] MEDS ORDERED: NS IV 1000 ML 1,000 ML IV SCH (18:41)
[2020-03-02] MEDS ORDERED: cefTRIAXone FOR IV USE 1,000 MG in WATER (STERILE) FOR INJECTION 10 ML IV ONE (18:45)
[2020-03-02] MEDS ORDERED: POTASSIUM CL 10MEQ/50ML IVPB 50 ML IV ONE (18:45)
[2020-03-02] MEDS ORDERED: metroNIDAZOLE 500 MG (FLAGYL) TAB PO ONE (19:45)
[2020-03-02] MEDS ORDERED: CIPROFLOXACIN 500 MG (CIPRO) TABLET PO ONE (19:45)
[2020-03-02] MEDS ORDERED: CIPR500T4 PO (20:00)
[2020-03-02] MEDS ORDERED: METR500T PO (20:00)
[2020-03-02] MEDS ORDERED: TRAM-42 PO (20:00)
[2020-03-02 20:05] VITALS: BP 138/86
[2020-03-02] MEDS ORDERED: KCL 10 MEQ TAB (MICRO K) PO ONE (20:15)
== END 2020-03-02 20:08 | disposition home or self-care (01) ==
LOC: EDUNIT# 17:19 → ER 17:20
DX: R10.84 Generalized abdominal pain (principal); D64.9 Anemia, unspecified; N39.0 Urinary tract infection, site not specified; E87.6 Hypokalemia; K21.9 Gastro-esophageal reflux disease without esophagitis; Z77.22 Contact with and (suspected) exposure to environmental tobacco smoke (acute) (chronic)
CPT/HCPCS: 36415; 80053; 81000; 84703; 85025; 85652; 86141; 87088

== ENCOUNTER 2020-04-10 19:23 | Emergency (ER) | payer MEDICAID ==
[~2020-04-10] VITALS: Ht 150 cm; Wt 88.6 kg
[~2020-04-10 19:23] MED LIST changes: +CIPR500T4 PO; +METR500T PO; +TRAM-42 PO
[2020-04-10 19:28] VITALS: BP 151/86
[2020-04-10] MEDS ORDERED: NAPR-1071 PO (19:44)
--- NOTE | 2020-04-10 19:44 | ED EENT ---
History of Present Illness General Chief Complaint: Facial Problems Stated Complaint: SWELLING/PAIN IN FACE Source: patient Exam Limitations: no limitations History of Present Illness Date Seen by Provider: Apr 10, 2020 Time Seen by Provider: 19:37 Initial Comments Patient was accidentally struck over the left zygomatic bone 2 days ago by her child when he inadvertently raised his arm back. She had a bit of pain but yesterday the pain seemed to be a bit more. Timing/Duration: abrupt Severity: mild Location: facial Prearrival Treatment: no prearrival treatment Associated Symptoms: denies symptoms Allergies and Home Medications Allergies Coded Allergies: No Known Drug Allergies (Unverified , 03/10/19) Home Medications Cefuroxime Axetil 250 Mg Tablet, 250 MG PO BID Prescribed by: IKM AYALA on 12/21/192233 Cephalexin 500 Mg Tablet, 500 MG PO BID Prescribed by: WESLEY WARE on 01/16/202302 Ciprofloxacin HCl 500 Mg Tablet, 500 MG PO BID Prescribed by: JOSÉ MIGUEL SIERRA on 03/02/201999 Doxycycline Hyclate 100 Mg Tablet, 100 MG PO BID Prescribed by: CINDY YEPEZ on 12/31/192200 Ferrous Sulfate 325 Mg Tablet, 325 MG PO DAILY Prescribed by: KIM AYALA on 12/21/192233 Ferrous Sulfate 325 Mg Tablet, 325 MG PO DAILY Prescribed by: BRITTA PRAKASH on 02/05/201649 Hydrocodone/Acetaminophen 1 Each Tablet, 1 TAB PO Q6H Prescribed by: CINDY YEPEZ on 12/31/192201 Metronidazole 500 Mg Tablet, 500 MG PO TID Prescribed by: JOSÉ MIGUEL SIERRA on 03/02/201999 Nitrofurantoin Monohyd/M-Cryst 100 Mg Capsule, 1 TAB PO BID Prescribed by: BRITTA PRAKASH on 02/05/201649 Omeprazole 40 Mg Capsule.dr, 40 MG PO DAILY Prescribed by: WESLEY WARE on 11/13/193 Ondansetron 4 Mg Tab.rapdis, 4 MG PO Q6H PRN for NAUSEA/VOMITING Prescribed by: WESLEY WARE on 11/13/193 Sucralfate 1 Gm Tablet, 1 GM PO QIDACHS Prescribed by: WESLEY WARE on 11/13/193 Tramadol HCl 50 Mg Tablet, 50 MG PO Q6H PRN for PAIN Prescribed by: WESLEY WARE on 01/16/20 737 Tramadol HCl 50 Mg Tablet, 50 MG PO Q6H PRN for PAIN-BREAKTHROUGH Prescribed by: JOSÉ MIGUEL SIERRA on 03/02/202000 Patient Home Medication List Home Medication List Reviewed: Yes Review of Systems Review of Systems Constitutional: see HPI Eyes: No Symptoms Reported Ears: No Symptoms Reported Nose: no symptoms reported Mouth: no symptoms reported Throat: no symptoms reported Respiratory: no symptoms reported Cardiovascular: no symptoms reported Musculoskeletal: no symptoms reported Past Dphdany-Iklzox-Fuqffo Hx Patient Social History Type Used: Cigarettes, Electronic/Vapor, Smokeless Tobacco 2nd Hand Smoke Exposure: Yes Recent Foreign Travel: No Contact w/Someone Who Travel: No Recent Hopitalizations: No Immunizations Up To Date Tetanus Booster (TDap): Less than 5yrs Seasonal Allergies Seasonal Allergies: No Past Medical History Surgeries: Yes (HERNIA) Abdominal, Section, Tubal Ligation Respiratory: Yes Asthma Cardiac: No Neurological: 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 pylori) Gastroesophageal Reflux, Ulcer Musculoskeletal: No Endocrine: No HEENT: No Cancer: No Psychosocial: No Integumentary: No Blood Disorders: No Family Medical History No Pertinent Family Hx Physical Exam Height, Weight, BMI Height: 4'9.00" Weight: 205lbs. oz. 92.029500wn; 44.00 BMI Method:Stated General Appearance: WD/WN, no apparent distress Eyes: bilateral eye normal inspection, bilateral eye PERRL, bilateral eye EOMI, bilateral eye other (no excessive blinking, keeps both eyes open. No evidence to suggest corneal abrasion and she denies any pain to the eye, it's all over the lateral aspect of the zygomatic bone.) Ears: bilateral ear auricle normal, bilateral ear canal normal, bilateral ear TM normal Mouth/Throat: normal mouth inspection, pharynx normal Neck: non-tender, full range of motion Respiratory: no respiratory distress, no accessory muscle use Neurologic/Psychiatric: alert, normal mood/affect, oriented x 3 Progress/Results/Core Measures Results/Orders My Orders Orders - KIM AYALA APRN Ketorolac Injection (Toradol Injection) (04/10/20 19:45) Departure Impression Primary Impression: Contusion of face Disposition: 01 HOME, SELF-CARE Condition: Stable Departure-Patient Inst. Decision time for Depature: 19:41 Referrals: [facility] (PCP/Family) Primary Care Physician Patient Instructions: Contusion (DC) Add. Discharge Instructions: . Ice pack to the face 2. Anti-inflammatory as directed. Return to ER for any concerns. All discharge instructions reviewed with patient and/or family. Voiced understanding. Scripts Naproxen (Naprosyn) 500 Mg Tablet 500 MG PO BID PRN for PAIN-MODERATE (5-7), #30 TAB 0 Refills Prov: KIM AYALA APRN 04/10/20 Images Head/Face 1 - Tenderness KIM AYALA APRN Apr 10, 2020 19:44
[2020-04-10] MEDS ORDERED: KETOROLAC 60 MG/2 ML VIAL IM ONE (19:45)
== END 2020-04-10 19:47 | disposition home or self-care (01) ==
LOC: EDUNIT# 19:23 → ER 19:25
DX: S00.83XA Contusion of other part of head, initial encounter (principal); K21.9 Gastro-esophageal reflux disease without esophagitis; Z77.22 Contact with and (suspected) exposure to environmental tobacco smoke (acute) (chronic); W50.0XXA Accidental hit or strike by another person, initial encounter
CPT/HCPCS: 99284

== ENCOUNTER 2020-04-27 19:24 | Emergency (ER) | payer MEDICAID ==
[~2020-04-27] VITALS: Ht 150 cm; Wt 95.0 kg
--- NOTE | 2020-04-27 20:05 | ED Chest Pain ---
General Chief Complaint: Chest Pain Stated Complaint: RIB PAIN, CHEST PAIN Nursing Triage Note: Pt ambulates to room #7 with c/o medial chest discomfort radiating to R side of chest. 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 Pt describes discomfort as "sharp." A&OX4. Nursing Sepsis Screen: No Definite Risk History of Present Illness Date Seen by Provider: Apr 27, 2020 Time Seen by Provider: 19:50 Initial Comments This is a 35-year-old female who presents to the ER for complaints of burning sensation in her central chest that started approximately 3 hours prior to arrival. States pain is same as previous episode of GERD that she had last year. Has not taken anything for pain prior to arrival. States she has a history of GERD and ate Greek food last night. Has taken Omeprazole and Sucralfate in the past, but states she is no longer taking. She also reports suprapubic pain that has been present for 2 months. Denies fever, chills, cough, shortness of breath, abdominal pain, nausea/vomiting/diarrhea, dysuria, or frequency. LMP 2 apx. weeks ago. Severity/Quality: moderate, burning Location: central, epigastric Radiation: no radiation Activities at Onset: none Prior CP/Workup: no prior chest pain Allergies and Home Medications Allergies Coded Allergies: No Known Drug Allergies (Unverified , 03/10/19) Home Medications Cefuroxime Axetil 250 Mg Tablet, 250 MG PO BID Prescribed by: KIM AYALA on 12/21/192233 Cephalexin 500 Mg Tablet, 500 MG PO BID Prescribed by: WESLEY WARE on 01/16/202302 Ciprofloxacin HCl 500 Mg Tablet, 500 MG PO BID Prescribed by: JOSÉ MIGUEL SIERRA on 03/02/201999 Doxycycline Hyclate 100 Mg Tablet, 100 MG PO BID Prescribed by: CINDY YEPEZ on 12/31/192200 Ferrous Sulfate 325 Mg Tablet, 325 MG PO DAILY Prescribed by: KIM AYALA on 12/21/192233 Ferrous Sulfate 325 Mg Tablet, 325 MG PO DAILY Prescribed by: BRITTA PRAKASH on 02/05/20 165 Hydrocodone/Acetaminophen 1 Each Tablet, 1 TAB PO Q6H Prescribed by: CINDY YEPEZ on 12/31/192201 Metronidazole 500 Mg Tablet, 500 MG PO TID Prescribed by: JOSÉ MIGUEL SIERRA on 03/02/201999 Naproxen 500 Mg Tablet, 500 MG PO BID PRN for PAIN-MODERATE (5-7) Prescribed by: KIM AYALA on 04/10/20 194 Nitrofurantoin Monohyd/M-Cryst 100 Mg Capsule, 1 TAB PO BID Prescribed by: BRITTA PRAKASH on 02/05/20 165 Omeprazole 40 Mg Capsule.dr, 40 MG PO DAILY Prescribed by: WESLEY WARE on 11/13/193 Omeprazole 20 Mg Tab.rap.dr, 20 MG PO DAILY Prescribed by: SELENE ESCALONA on 04/27/202215 Ondansetron 4 Mg Tab.rapdis, 4 MG PO Q6H PRN for NAUSEA/VOMITING Prescribed by: WESLEY WARE on 11/13/193 Sucralfate 1 Gm Tablet, 1 GM PO QIDACHS Prescribed by: WESLEY WARE on 11/13/193 Tramadol HCl 50 Mg Tablet, 50 MG PO Q6H PRN for PAIN Prescribed by: WESLEY WARE on 01/16/20 230 Tramadol HCl 50 Mg Tablet, 50 MG PO Q6H PRN for PAIN-BREAKTHROUGH Prescribed by: JOSÉ MIGUEL SIERRA on 03/02/202000 Patient Home Medication List Home Medication List Reviewed: Yes Review of Systems Review of Systems Constitutional: no symptoms reported EENTM: No Symptoms Reported Respiratory: No Symptoms Reported Cardiovascular: See HPI Gastrointestinal: See HPI Genitourinary: See HPI Musculoskeletal: no symptoms reported Skin: no symptoms reported Psychiatric/Neurological: No Symptoms Reported Endocrine: No Symptoms Reported Past Oykbcuu-Vmftnp-Jiewis Hx Patient Social History Alcohol Use: Rarely Uses Number of Drinks Today: 0 Recreational Drug Use: No Smoking Status: Current Everyday Smoker Type Used: Cigarettes, Electronic/Vapor, Smokeless Tobacco 2nd Hand Smoke Exposure: Yes Recent Foreign Travel: No Contact w/Someone Who Travel: No Recent Infectious Disease Expo: No Recent Hopitalizations: No Immunizations Up To Date Tetanus Booster (TDap): Less than 5yrs Seasonal Allergies Seasonal Allergies: No Past Medical History Surgeries: Yes (HERNIA) Abdominal, Section, Tubal Ligation Respiratory: Yes Asthma Cardiac: No Neurological: No [employer]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 pylori) Gastroesophageal Reflux, Ulcer Musculoskeletal: No Endocrine: No HEENT: No Cancer: No Psychosocial: No Integumentary: No Blood Disorders: Yes (ANEMIA) Family Medical History No Pertinent Family Hx Physical Exam Vital Signs Vital Signs - First Documented Capillary Refill : Less Than 3 Seconds Height, Weight, BMI Height: 4'9.00" Weight: 205lbs. oz. 92.933814mn; 42.00 BMI Method:Stated General Appearance: No Apparent Distress, WD/WN HEENT: PERRL/EOMI, Pharynx Normal Neck: Full Range of Motion, Normal Inspection Respiratory: Lungs Clear, Normal Breath Sounds, No Accessory Muscle Use Cardiovascular: Regular Rate, Rhythm, Normal Peripheral Pulses, Other (reproducible pain with palpation) Gastrointestinal: Normal Bowel Sounds, Soft; No Distended; Tenderness (epigastric tenderness with palpation. ) Extremity: Normal Capillary Refill, Normal Inspection, Normal Range of Motion Neurologic/Psychiatric: Alert, Oriented x3, No Motor/Sensory Deficits, Normal Mood/Affect Skin: Normal Color, Warm/Dry Progress/Results/Core Measures Results/Orders Lab Results Laboratory Tests Test 04/27/20 20:05 04/27/20 22:00 Range/Units White Blood Count 9.8 4.3-11.0 10^3/uL Red Blood Count 4.38 3.80-5.11 10^6/uL Hemoglobin 7.6 L 11.5-16.0 g/dL Hematocrit 27 L 35-52 % Mean Corpuscular Volume 61 L 80-99 fL Mean Corpuscular Hemoglobin 17 L 25-34 pg Mean Corpuscular Hemoglobin Concent 28 L 32-36 g/dL Red Cell Distribution Width 19.3 H 10.0-14.5 % Platelet Count 368 130-400 10^3/uL Mean Platelet Volume 9.0-12.2 fL Immature Granulocyte % (Auto) 0 % Neutrophils (%) (Auto) 62 42-75 % Lymphocytes (%) (Auto) 28 12-44 % Monocytes (%) (Auto) 8 0-12 % Eosinophils (%) (Auto) 2 0-10 % Basophils (%) (Auto) 1 0-10 % Neutrophils # (Auto) 6.0 1.8-7.8 10^3/uL Lymphocytes # (Auto) 2.7 1.0-4.0 10^3/uL Monocytes # (Auto) 0.8 0.0-1.0 10^3/uL Eosinophils # (Auto) 0.2 0.0-0.3 10^3/uL Basophils # (Auto) 0.1 0.0-0.1 10^3/uL Immature Granulocyte # (Auto) 0.0 0.0-0.1 10^3/uL Sodium Level 138 135-145 MMOL/L Potassium Level 3.2 L 3.6-5.0 MMOL/L Chloride Level 106 98-107 MMOL/L Carbon Dioxide Level 22 21-32 MMOL/L Anion Gap 10 5-14 MMOL/L Blood Urea Nitrogen 10 7-18 MG/DL Creatinine 0.72 0.60-1.30 MG/DL Estimat Glomerular Filtration Rate > 60 BUN/Creatinine Ratio 14 Glucose Level 89 70-105 MG/DL Calcium Level 8.4 L 8.5-10.1 MG/DL Corrected Calcium 8.3 L 8.5-10.1 MG/DL Total Bilirubin 0.2 0.1-1.0 MG/DL Aspartate Amino Transf (AST/SGOT) 16 5-34 U/L Alanine Aminotransferase (ALT/SGPT) 12 0-55 U/L Alkaline Phosphatase 61 40-136 U/L Troponin I < 0.028 < 0.028 <0.028 NG/ML Total Protein 8.3 H 6.4-8.2 GM/DL Albumin 4.1 3.2-4.5 GM/DL My Orders Orders - SELENE ESCALONA HAT SIZER Cbc With Automated Diff (04/27/20 20:05) Chest 1 View, Ap/Pa Only (04/27/20 20:05) Ekg Tracing (04/27/20 20:05) Comprehensive Metabolic Panel (04/27/20 20:05) Monitor-Rhythm Ecg Trace Only (04/27/20 20:05) Ed Iv/Invasive Line Start (04/27/20 20:05) Pantoprazole Injection (Protonix Injecti (04/27/20 20:15) Troponin I (04/27/20 20:05) Lidocaine 2% Viscous 15 Ml (Xylocaine Vi (04/27/20 20:45) Antacid Suspension (Mylanta Suspension (04/27/20 20:45) Troponin I (04/27/20 22:00) Medications Given in ED Current Medications Medications Dose Ordered Sig/Giana Route Start Time Stop Time Status Last Admin Dose Admin Al Hydrox/Mg Hydrox/Simethicone 30 ml ONCE ONCE PO 04/27/20 20:45 04/27/20 20:46 DC 04/27/20 20:52 30 ML Lidocaine HCl 15 ml ONCE ONCE PO 04/27/20 20:45 04/27/20 20:46 DC 04/27/20 20:52 15 ML Pantoprazole 40 mg ONCE ONCE IV 04/27/20 20:15 04/27/20 20:16 DC 04/27/20 20:24 40 MG Vital Signs/I&O 04/27/20 04/27/20 04/27/20 19:28 19:28 22:43 Temp 37.1 37.1 Pulse 73 78 Resp 20 18 B/P (MAP) 141/83 (102) 113/71 (102) Pulse Ox 100 97 O2 Delivery Room Air Room Air Room Air Blood Pressure Mean: 102 Progress Progress Note : Progress Note EKG shows SR at 65. Symptoms are likely from GERD, however cardiac workup initiated d/t presentation. Pantoprazole 40mg IV ordered. Labs are unremarkable, stable chronic anemia noted with Hgb-7.6. Initial tropoinin negative. She was given GI cocktail at this time which resolved symptoms shortly after taking. Troponin repeated at 2 hours and remained negative. Reviewed her discharge plan of care and she is agreeable with plan. Departure Impression Primary Impression: Gastroesophageal reflux disease Disposition: HOME, SELF-CARE Condition: Improved Departure-Patient Inst. [facility]: [facility] [place] Primary Care Physician ZAID LANGE APRN (Family) Primary Care Physician Patient Instructions: Chest Pain That Is Not Caused by the Heart (DC) Add. Discharge Instructions: Plan: 1. Discharge home. 2. Avoid caffeine, spicy, or greasy foods as this may worsen your symptoms. 3. Take Omeprazole daily as directed. 4. Follow up with your primary care provider for persistent symptoms. You may need a scope of your esophagus and stomach (EGD). 5. Return for any new or concerning symptoms. All discharge instructions reviewed with patient and/or family. Voiced understanding. Scripts Omeprazole (Omeprazole) 20 Mg Tab.rap. 20 MG PO DAILY for 30 Days, #30 EA 0 Refills Prov: SELENE ESCALONA HAT SIZER 04/27/20 SELENE ESCALONA APRN Apr 27, 2020 20:04
[2020-04-27 20:10] LABS: BASOPHILS # (AUTO) 0.1 10^3/uL (0.0-0.1); BASOPHILS % (AUTO) 1 % (0-10); EOSINOPHILS # (AUTO) 0.2 10^3/uL (0.0-0.3); EOSINOPHILS % (AUTO) 2 % (0-10); HEMATOCRIT 27 % (35-52); HEMOGLOBIN 7.6 g/dL (11.5-16.0); LYMPHOCYTES # (AUTO) 2.7 10^3/uL (1.0-4.0); LYMPHOCYTES % (AUTO) 28 % (12-44); MEAN CORPUSCULAR HEMOGLOBIN 17 pg (25-34); MEAN CORPUSCULAR HGB CONC 28 g/dL (32-36); MEAN CORPUSCULAR VOLUME 61 fL (80-99); MONOCYTES # (AUTO) 0.8 10^3/uL (0.0-1.0); MONOCYTES % (AUTO) 8 % (0-12); NEUTROPHILS % (AUTO) 62 % (42-75); PLATELET COUNT 368 10^3/uL (130-400); WHITE BLOOD COUNT 9.8 10^3/uL (4.3-11.0)
[2020-04-27 20:15] LABS: ALBUMIN 4.1 GM/DL (3.2-4.5); CHLORIDE 106 MMOL/L (98-107); POTASSIUM 3.2 MMOL/L (3.6-5.0); SODIUM 138 MMOL/L (135-145)
[2020-04-27] MEDS ORDERED: PANTOPRAZOLE 40 MG (PROTONIX) VIAL IV ONE (20:15)
[2020-04-27 20:16] LABS: CALCIUM 8.4 MG/DL (8.5-10.1)
[2020-04-27 20:18] LABS: GLUCOSE 89 MG/DL (70-105); TOTAL PROTEIN 8.3 GM/DL (6.4-8.2)
[2020-04-27 20:19] LABS: BILIRUBIN,TOTAL 0.2 MG/DL (0.1-1.0); CARBON DIOXIDE 22 MMOL/L (21-32)
[2020-04-27 20:21] LABS: ALKALINE PHOSPHATASE 61 U/L (40-136); CREATININE SERUM 0.72 MG/DL (0.60-1.30); GFR ESTIMATED > 60
[2020-04-27 20:22] LABS: BUN/CREATININE RATIO 14
[2020-04-27 20:24] LABS: ALANINE AMINOTRANSFERASE 12 U/L (0-55)
--- NOTE | 2020-04-27 20:41 | Diagnostic Imaging Report ---
EXAM: Chest 1 view, AP/PA only. INDICATION: Chest pain. COMPARISON: Chest radiograph 11/12/2019. FINDINGS: Examination limited by underpenetration and low lung volumes. Normal heart size and central pulmonary vascularity. No dense pulmonary consolidation. No pleural effusion or pneumothorax. No acute osseous finding. IMPRESSION: Low lung volumes. Chest is otherwise unremarkable. Dictated by: Dictated on workstation # [id number]
[2020-04-27] MEDS ORDERED: LIDOCAINE 2% VISCOUS 15 ML UDC PO ONE (20:45)
[2020-04-27] MEDS ORDERED: ANTACID SUSP 30 ML UDC (MYLANTA) PO ONE (20:45)
[2020-04-27] MEDS ORDERED: OMEP-401 PO (22:16)
[2020-04-27 22:43] VITALS: BP 113/71
== END 2020-04-27 22:43 | disposition home or self-care (01) ==
LOC: EDUNIT# 19:24 → ER 19:26
DX: K21.9 Gastro-esophageal reflux disease without esophagitis (principal); F17.210 Nicotine dependence, cigarettes, uncomplicated; F17.290 Nicotine dependence, other tobacco product, uncomplicated
CPT/HCPCS: 36415; 71045; 80053; 84484; 85025; 93005; 93041

== ENCOUNTER 2020-10-02 22:30 | Emergency (ER) | payer MEDICAID ==
[~2020-10-02] VITALS: Ht 150 cm; Wt 100.0 kg
[~2020-10-02 22:30] MED LIST changes: -CIPR500T4 PO; +CIPR500T5 PO; -CLIN300C11 PO; +CLIN300C12 PO; +OMEP-401 PO
[2020-10-02 22:37] VITALS: BP 126/80
--- NOTE | 2020-10-02 22:55 | ED Abdominal Pain ---
General Stated Complaint: ABD PAIN Source of Information: Patient Exam Limitations: No Limitations History of Present Illness Date Seen by Provider: Oct 02, 2020 Time Seen by Provider: 22:30 Initial Comments Patient is a 35-year-old female who presents to the emergency department with a chief complaint of midepigastric abdominal pain. Patient states she first noticed it several days ago when she was drinking dark soda she had the onset of burning epigastric pain. She states for the last 3 days the discomfort has been constant. Nothing makes it any better or any worse. When she eats it does not intensify the symptoms. She is not nauseated. She is having a little bit of diarrhea that she states is nonblack and nonbloody. She denies fevers or chills. She states she has taken a little bit of ibuprofen to try to alleviate the discomfort in her stomach her last dose was 2 pills at 5:00 this evening. Patient states that the episodes seem to intensify only with dark sodas, she has tried Sprite and Mountain Dew and that does not seem to make her stomach feel worse. Patient denies any urinary complaints. Patient also complains of a fairly recent onset of cough with sputum and occasional flecks of blood in her sputum. She does smoke cigarettes and is counseled on quitting. All other review of systems reviewed and negative except as stated above. Timing/Duration: 3-4 Days Severity/Quality: Burning Location: Epigastric Radiation: Epigastric Activities at Onset: None Associated Symptoms: Nausea/Vomiting (Slight nausea) Allergies and Home Medications Allergies Coded Allergies: No Known Drug Allergies (Unverified , 03/10/19) Home Medications Cefuroxime Axetil 250 Mg Tablet, 250 MG PO BID Prescribed by: KIM AYALA on 12/21/192233 Cephalexin 500 Mg Tablet, 500 MG PO BID Prescribed by: WESLEY WARE on 01/16/202302 Ciprofloxacin HCl 500 Mg Tablet, 500 MG PO BID Prescribed by: JOSÉ MIGUEL SIERRA on 03/02/201999 Doxycycline Hyclate 100 Mg Tablet, 100 MG PO BID Prescribed by: CINDY YEPEZ on 12/31/192200 Ferrous Sulfate 325 Mg Tablet, 325 MG PO DAILY Prescribed by: KIM AYALA on 12/21/192233 Ferrous Sulfate 325 Mg Tablet, 325 MG PO DAILY Prescribed by: BRITTA PRAKASH on 02/05/201649 Hydrocodone/Acetaminophen 1 Each Tablet, 1 TAB PO Q6H Prescribed by: CINDY YEPEZ on 12/31/192201 Metronidazole 500 Mg Tablet, 500 MG PO TID Prescribed by: JOSÉ MIGUEL SIERRA on 03/02/201999 Naproxen 500 Mg Tablet, 500 MG PO BID PRN for PAIN-MODERATE (5-7) Prescribed by: KIM AYALA on 04/10/201943 Nitrofurantoin Monohyd/M-Cryst 100 Mg Capsule, 1 TAB PO BID Prescribed by: BRITTA PRAKASH on 02/05/201649 Omeprazole 40 Mg Capsule.dr, 40 MG PO DAILY Prescribed by: WESLEY WARE on 11/13/193 Omeprazole 20 Mg Tab.rap.dr, 20 MG PO DAILY Prescribed by: SELENE ESCALONA on 04/27/202215 Omeprazole Magnesium 20 Mg Tablet.dr, 20 MG PO DAILY Prescribed by: ARABELLA BARDALES on 10/02/20 232 Ondansetron 4 Mg Tab.rapdis, 4 MG PO Q6H PRN for NAUSEA/VOMITING Prescribed by: WESLEY WARE on 11/13/193 Sucralfate 1 Gm Tablet, 1 GM PO QIDACHS Prescribed by: WESLEY WARE on 11/13/193 Tramadol HCl 50 Mg Tablet, 50 MG PO Q6H PRN for PAIN Prescribed by: WESLEY WARE on 01/16/202302 Tramadol HCl 50 Mg Tablet, 50 MG PO Q6H PRN for PAIN-BREAKTHROUGH Prescribed by: JOSÉ MIGUEL SIERRA on 03/02/202000 Patient Home Medication List Home Medication List Reviewed: Yes Review of Systems Review of Systems Constitutional: see HPI EENTM: No Symptoms Reported Respiratory: Cough (Cough with sputum) Cardiovascular: No Symptoms Reported Gastrointestinal: Abdominal Pain (Burning epigastric abdominal pain) Genitourinary: No Symptoms Reported Musculoskeletal: no symptoms reported Skin: lesions (Anterior abdominal wall and her buttocks) All Other Systems Reviewed Negative Unless Noted: Yes Past Pfhdxse-Tavoak-Ptcrym Hx Patient Social History Type Used: Cigarettes, Electronic/Vapor, Smokeless Tobacco 2nd Hand Smoke Exposure: Yes Recent Hopitalizations: No Immunizations Up To Date Tetanus Booster (TDap): Less than 5yrs Seasonal Allergies Seasonal Allergies: No Past Medical History Surgeries: Yes (HERNIA) Abdominal, Section, Tubal Ligation Respiratory: Yes Asthma Cardiac: No 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 pylori) Gastroesophageal Reflux, Ulcer Musculoskeletal: No Endocrine: No HEENT: No Cancer: No Psychosocial: No Integumentary: No Blood Disorders: Yes (ANEMIA) Family Medical History No Pertinent Family Hx Physical Exam Vital Signs Vital Signs - First Documented 10/02/20 22:37 Temp 36.4 Pulse 73 Resp 18 B/P (MAP) 126/80 (95) Pulse Ox 100 O2 Delivery Room Air Capillary Refill : Height/Weight/BMI Height: 4'9.00" Weight: 205lbs. oz. 92.842390zb; 42.00 BMI Method:Stated General Appearance: WD/WN, no apparent distress HEENT: pale conjunctivae (R), pale conjunctivae (L) Neck: normal inspection Respiratory: lungs clear, normal breath sounds, no respiratory distress, no accessory muscle use Cardiovascular: regular rate, rhythm Gastrointestinal: normal bowel sounds, soft, tenderness (Tenderness periumbilical and epigastrically, no rebound or guarding. Rest of the abdomen is soft and benign) Extremities: normal range of motion, non-tender, normal inspection Neurologic/Psychiatric: alert, normal mood/affect, oriented x 3 Skin: normal color, warm/dry, other (Patient has a small half centimeter raised lesion in the left upper quadrant on the anterior abdomen that is a little ulcerated and slightly tender to palpation.) Progress/Results/Core Measures Results/Orders Lab Results Laboratory Tests Test 10/02/20 22:50 Range/Units White Blood Count 10.9 4.3-11.0 10^3/uL Red Blood Count 4.64 3.80-5.11 10^6/uL Hemoglobin 8.0 L 11.5-16.0 g/dL Hematocrit 29 L 35-52 % Mean Corpuscular Volume 62 L 80-99 fL Mean Corpuscular Hemoglobin 17 L 25-34 pg Mean Corpuscular Hemoglobin Concent 28 L 32-36 g/dL Red Cell Distribution Width 19.3 H 10.0-14.5 % Platelet Count 438 H 130-400 10^3/uL Mean Platelet Volume 10.5 9.0-12.2 fL Immature Granulocyte % (Auto) 0 % Neutrophils (%) (Auto) 57 42-75 % Lymphocytes (%) (Auto) 31 12-44 % Monocytes (%) (Auto) 7 0-12 % Eosinophils (%) (Auto) 4 0-10 % Basophils (%) (Auto) 1 0-10 % Neutrophils # (Auto) 6.2 1.8-7.8 10^3/uL Lymphocytes # (Auto) 3.4 1.0-4.0 10^3/uL Monocytes # (Auto) 0.8 0.0-1.0 10^3/uL Eosinophils # (Auto) 0.5 H 0.0-0.3 10^3/uL Basophils # (Auto) 0.1 0.0-0.1 10^3/uL Immature Granulocyte # (Auto) 0.0 0.0-0.1 10^3/uL My Orders Orders - ARABELLA BARDALES MD Cbc With Automated Diff (10/02/20 22:55) Sucralfate Tablet (Carafate Tablet) (10/02/20 23:00) Lidocaine 2% Viscous 15 Ml (Xylocaine Vi (10/02/20 23:00) Antacid Suspension (Mylanta Suspension (10/02/20 23:00) Pantoprazole Injection (Protonix Injecti (10/02/20 23:15) Medications Given in ED Current Medications Medications Dose Ordered Sig/Giana Route Start Time Stop Time Status Last Admin Dose Admin Al Hydrox/Mg Hydrox/Simethicone 30 ml ONCE ONCE PO 10/02/20 23:00 10/02/20 23:01 DC 10/02/20 23:03 30 ML Lidocaine HCl 5 ml ONCE ONCE PO 10/02/20 23:00 10/02/20 23:01 DC 10/02/20 23:03 5 ML Pantoprazole 40 mg ONCE ONCE IV 10/02/20 23:15 10/02/20 23:16 DC 10/02/20 23:21 40 MG Sucralfate 1 gm ONCE ONCE PO 10/02/20 23:00 10/02/20 23:01 DC 10/02/20 23:03 1 GM Vital Signs/I&O 10/02/20 22:37 Temp 36.4 Pulse 73 Resp 18 B/P (MAP) 126/80 (95) Pulse Ox 100 O2 Delivery Room Air Progress Progress Note : Time: 23:21 Progress Note Patient got significant relief from the Carafate, lidocaine and Maalox cocktail. I have counseled her on acid reflux precautions I have given her prescription for Prilosec 20 mg tablets to take daily for the next 2 months. I have advised the patient to follow-up with [facility] regarding her ongoing sym ptoms and anemia. I have also given her contact information for Dr. Weiss who is on-call for general surgery to investigate as to whether or not she will need EGD or colonoscopy. The patient verbalizes understanding. She is comfortable with the plan of care. All questions are sought and answered. Patient is stable for discharge. Departure Impression Primary Impression: Abdominal pain Qualified Codes: R10.13 - Epigastric pain Additional Impressions: GERD (gastroesophageal reflux disease) Qualified Codes: K21.9 - Gastro-esophageal reflux disease without esophagitis Anemia Qualified Codes: D64.9 - Anemia, unspecified Disposition: 01 HOME, SELF-CARE Condition: Stable Departure-Patient Inst. Decision time for Depature: 23:18 Referrals: [facility] (PCP) Primary Care Physician FREDI GUILLEN APRN (Family) Primary Care Physician YOHANNES WEISS MD Patient Instructions: Acid Reflux and GERD in Adults (DC), Peptic Ulcers (DC) Add. Discharge Instructions: Take the omeprazole I have prescribed you daily. I have sent this prescription to your [facility]. Avoid spicy greasy foods as this can cause your symptoms to worsen as can sodas as you have discomfort. Please follow-up with [facility] regarding your chronic anemia. I have also given you contact information for Dr. Weiss who is the general surgeon on-call. You can call his office to schedule endoscopy which will help us to find out if you indeed have ulcers. Come back to the emergency room for any increased or worsening pain, passing blood in your stool, vomiting blood or any other emergent concerning symptoms. Scripts Omeprazole Magnesium (Prilosec Otc) 20 Mg Tablet. 20 MG PO DAILY, #60 TAB Prov: ARABELLA BARDALES MD 10/02/20 ARABELLA BARDALES MD Oct 02, 2020 22:55
[2020-10-02 23:00] LABS: MEAN PLATELET VOLUME 10.5 fL (9.0-12.2); NEUTROPHILS % (AUTO) 57 % (42-75)
[2020-10-02] MEDS ORDERED: SUCRALFATE 1 GM (CARAFATE) TAB PO ONE (23:00)
[2020-10-02] MEDS ORDERED: LIDOCAINE 2% VISCOUS 15 ML UDC PO ONE (23:00)
[2020-10-02] MEDS ORDERED: ANTACID SUSP 30 ML UDC (MYLANTA) PO ONE (23:00)
[2020-10-02 23:02] LABS: BASOPHILS # (AUTO) 0.1 10^3/uL (0.0-0.1); BASOPHILS % (AUTO) 1 % (0-10); EOSINOPHILS # (AUTO) 0.5 10^3/uL (0.0-0.3); EOSINOPHILS % (AUTO) 4 % (0-10); HEMATOCRIT 29 % (35-52); LYMPHOCYTES # (AUTO) 3.4 10^3/uL (1.0-4.0); LYMPHOCYTES % (AUTO) 31 % (12-44); MEAN CORPUSCULAR HEMOGLOBIN 17 pg (25-34); MEAN CORPUSCULAR HGB CONC 28 g/dL (32-36); MEAN CORPUSCULAR VOLUME 62 fL (80-99); MONOCYTES # (AUTO) 0.8 10^3/uL (0.0-1.0); MONOCYTES % (AUTO) 7 % (0-12); NEUTROPHILS # (AUTO) 6.2 10^3/uL (1.8-7.8); PLATELET COUNT 438 10^3/uL (130-400); WHITE BLOOD COUNT 10.9 10^3/uL (4.3-11.0)
[2020-10-02] MEDS ORDERED: PANTOPRAZOLE 40 MG (PROTONIX) VIAL IV ONE (23:15)
[2020-10-02] MEDS ORDERED: OMEP20TA33 PO (23:20)
== END 2020-10-02 23:27 | disposition home or self-care (01) ==
LOC: EDUNIT# 22:30 → ER 22:33
DX: K21.9 Gastro-esophageal reflux disease without esophagitis (principal); D64.9 Anemia, unspecified; J45.909 Unspecified asthma, uncomplicated; Z77.22 Contact with and (suspected) exposure to environmental tobacco smoke (acute) (chronic)
CPT/HCPCS: 36415; 85025

== ENCOUNTER 2020-10-22 20:05 | Emergency (ER) | payer MEDICAID ==
[~2020-10-22] VITALS: Ht 149 cm; Wt 102.0 kg
[~2020-10-22 20:05] MED LIST changes: +OMEP20TA33 PO
[2020-10-22 20:15] VITALS: BP 166/81
[2020-10-22] MEDS ORDERED: PANT20TA18 (20:22)
[2020-10-22] MEDS ORDERED: DOCU100C37 (20:22)
--- NOTE | 2020-10-22 20:54 | ED General ---
General Chief Complaint: General Problems/Pain Stated Complaint: CRAMPING, SORENESS FROM DEPO SHOT Nursing Triage Note: c/o right buttocks pain after recieving depo shot 10/21/20. Nursing Sepsis Screen: No Definite Risk Source of Information: Patient Exam Limitations: No Limitations History of Present Illness Date Seen by Provider: Oct 22, 2020 Time Seen by Provider: 20:10 Initial Comments To ER with report of pain in the right buttock and pelvic cramping as well as some spotting after receiving a Depo progesterone shot in the right buttock y esterday. Timing/Duration: 1-2 Days Severity: Moderate Associated Systoms: No Fever/Chills, No Nausea/Vomiting Allergies and Home Medications Allergies Coded Allergies: No Known Drug Allergies (Unverified , 03/10/19) Home Medications Ferrous Sulfate 325 Mg Tablet, 325 MG PO DAILY Prescribed by: BRITTA PRAKASH on 02/05/20 1650 Last Action: Last Taken Edited Patient Home Medication List Home Medication List Reviewed: Yes Review of Systems Review of Systems Constitutional: see HPI; No chills, No fever Respiratory: no symptoms reported Cardiovascular: no symptoms reported Genitourinary: see HPI; No dysuria Musculoskeletal: see HPI, back pain Skin: no symptoms reported Psychiatric/Neurological: No Symptoms Reported Hematologic/Lymphatic: No Symptoms Reported Past Nncdahh-Skerlx-Gcxraa Hx Patient Social History Alcohol Use: Denies Use Smoking Status: Current Everyday Smoker Type Used: Cigarettes, Electronic/Vapor, Smokeless Tobacco 2nd Hand Smoke Exposure: Yes Recent Infectious Disease Expo: No Recent Hopitalizations: No Immunizations Up To Date Tetanus Booster (TDap): Less than 5yrs Seasonal Allergies Seasonal Allergies: No Past Medical History Surgeries: Yes (HERNIA) Abdominal, Section, Tubal Ligation Respiratory: Yes Asthma Cardiac: No Neurological: No : 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 pylori) Gastroesophageal Reflux, Ulcer Musculoskeletal: No Endocrine: No HEENT: No Cancer: No Psychosocial: No Integumentary: No Blood Disorders: Yes (ANEMIA) Family Medical History No Pertinent Family Hx Physical Exam Vital Signs Vital Signs - First Documented 10/22/20 20:15 Temp 36.5 Pulse 84 Resp 16 B/P (MAP) 166/81 (109) Pulse Ox 100 O2 Delivery Room Air Capillary Refill : Less Than 3 Seconds Height, Weight, BMI Height: 4'9.00" Weight: 205lbs. oz. 92.580433rg; 45.00 BMI Method:Stated General Appearance: No Apparent Distress, WD/WN Eyes: Bilateral Eye Normal Inspection, Bilateral Eye PERRL, Bilateral Eye EOMI Neck: Full Range of Motion, Normal Inspection Respiratory: No Accessory Muscle Use, No Respiratory Distress Gastrointestinal: Normal Bowel Sounds, Non Tender, Soft Extremity: Normal Capillary Refill, Normal Inspection Neurologic/Psychiatric: Alert, Oriented x3 Skin: Normal Color, Warm/Dry Progress/Results/Core Measures Suspected Sepsis Recent Fever Within 48 Hours: No Infection Criteria Present: None New/Unexplained Altered Menta: No Sepsis Screen: No Definite Risk SIRS Temperature: Pulse: 84 Respiratory Rate: 16 Blood Pressure 166 /81 Mean: 109 Results/Orders My Orders Orders - KIM AYALA APRN Ketorolac Injection (Toradol Injection) (10/22/20 21:00) Orphenadrine Inj (Ed Only) (Norflex Inje (10/22/20 21:00) Diphenhydramine Injection (Benadryl Inje (10/22/20 21:00) Medications Given in ED Current Medications Medications Dose Ordered Sig/Giana Route Start Time Stop Time Status Last Admin Dose Admin Diphenhydramine HCl 25 mg ONCE ONCE IM 10/22/20 21:00 10/22/20 21:01 DC 10/22/20 20:57 25 MG Ketorolac Tromethamine 60 mg ONCE ONCE IM 10/22/20 21:00 10/22/20 21:01 DC 10/22/20 20:58 60 MG Orphenadrine Citrate 60 mg ONCE ONCE IM 10/22/20 21:00 10/22/20 21:01 DC 10/22/20 20:57 60 MG Vital Signs/I&O 10/22/20 10/22/20 20:15 20:58 Temp 36.5 36.5 Pulse 84 Resp 16 B/P (MAP) 166/81 (109) Pulse Ox 100 O2 Delivery Room Air Capillary Refill : Less Than 3 Seconds Blood Pressure Mean: 109 Departure Impression Primary Impression: Pelvic cramping Disposition: 01 HOME, SELF-CARE Condition: Stable Departure-Patient Inst. Decision time for Depature: 20:54 Referrals: [facility] (PCP) Primary Care Physician FREDI GUILLEN APRN (Family) Primary Care Physician Patient Instructions: Side Effects From Medicines Add. Discharge Instructions: 1. Return to ER for any concerns 2. Follow-up with your doctor next week All discharge instructions reviewed with patient and/or family. Voiced understanding. KIM AYALA APRN Oct 22, 2020 20:54
[2020-10-22] MEDS ORDERED: ORPHENADRINE 60 MG/2 ML (NORFLEX) AMP (ED ONLY) IM ONE (21:00)
[2020-10-22] MEDS ORDERED: KETOROLAC 60 MG/2 ML VIAL IM ONE (21:00)
[2020-10-22] MEDS ORDERED: diphenhydrAMINE 50 MG/ML INJ (BENADRYL) IM ONE (21:00)
== END 2020-10-22 21:19 | disposition home or self-care (01) ==
LOC: EDUNIT# 20:05 → ER 20:08
DX: R10.2 Pelvic and perineal pain (principal); J45.909 Unspecified asthma, uncomplicated; F17.210 Nicotine dependence, cigarettes, uncomplicated; F17.290 Nicotine dependence, other tobacco product, uncomplicated
CPT/HCPCS: 99284

== ENCOUNTER 2020-11-25 05:30 | Outpatient (RCR) | payer MEDICAID ==
[~2020-11-25] VITALS: Ht 149.9 cm; Wt 95.3 kg
[~2020-11-25 05:30] MED LIST changes: +DOCU100C37; +PANT20TA18
== END 2020-11-26 08:38 | disposition home or self-care (01) ==
LOC: PREOP 05:30
PROVIDERS: ATTEND Surgery
DX: Z01.812 Encounter for preprocedural laboratory examination (principal); K21.9 Gastro-esophageal reflux disease without esophagitis; R19.4 Change in bowel habit; Z20.822 Contact with and (suspected) exposure to COVID-19
CPT/HCPCS: 87635

== ENCOUNTER 2020-11-28 10:09 | Day surgery (SDC) | payer MEDICAID ==
[~2020-11-28] VITALS: Ht 149 cm; Wt 95.3 kg
[2020-11-28] MEDS ORDERED: NS IV 500 ML 500 ML ONE (10:17)
[2020-11-28] MEDS ORDERED: LIDOCAINE JELLY 2% 6 ML SYRINGE MM PRN (10:30)
[2020-11-28] MEDS ORDERED: MIDAZOLAM 5 MG/5 ML (VERSED) VIAL IV ONE (10:30)
[2020-11-28] MEDS ORDERED: fentaNYL INJ 100 MCG/2 ML AMP IVP ONE (10:30)
[2020-11-28] MEDS ORDERED: HURRICAINE EXT TUBE (BENZOCAINE) XX PRN (10:30)
[2020-11-28 10:49] VITALS: BP 117/73
--- NOTE | 2020-11-28 10:55 | Conscious Sedation/ASA ---
Conscious Sedation Pre-Proced Time 10:45 ASA Score 2 For ASA 3 and 4: Consider anesthesia and medical clearance. Also, for patients with a history of failed moderate sedation consider anesthesia. Airway Lungs Heart ASA score ASA 1: a normal healthy patient ASA 2: a patient with a mild systemic disease (mid diabetes, controlled hypertension, obesity ASA 3: a patient with a severe systemic disease that limits activity (angina, COPD, prior Myocardial infarction) ASA 4: a patient with an incapacitating disease that is a constant threat to life (CHF, renal failure) ASA 5: a moribund patient not expected to survive 24 hrs. (ruptured aneurysm) ASA 6: a declared brain- patient whose organs are being harvested. For emergent operations, add the letter E after the classification Mallampati Classification Grade 2 Sedation Plan Analgesia, Amnesia, Plan communicated to team members, Discussed options with patient/fam, Discussed risks with patient/fam The patient is an appropriate candidate to undergo the planned procedure, sedation, and anesthesia. The patient immediately re-assessed prior to indication. YOHANNES RANDOLPH MD November 28, 2020 10:55
--- NOTE | 2020-11-28 10:56 | Progress Note-Pre Operative ---
Pre-Operative Progress Note H&P Reviewed The H&P was reviewed, patient examined and no changes noted. Date Seen by Provider: November 28, 2020 Time Seen by Provider: 10:45 Date H&P Reviewed: November 28, 2020 Time H&P Reviewed: 10:45 Pre-Operative Diagnosis: GERD, change bowel habits YOHANNES RANDOLPH MD November 28, 2020 10:56
[2020-11-28] MEDS ORDERED: PANT40TA2 PO (11:00)
[2020-11-28] MEDS ORDERED: morphine INJ 10 MG/ML 1ML (SYR OR VIAL) IVP PRN ×2 (11:00)
[2020-11-28] MEDS ORDERED: HYDROcodone/APAP 5 MG/325 MG (LORTAB) TAB PO PRN (11:00)
[2020-11-28] MEDS ORDERED: ONDANSETRON 4 MG/2 ML (SDV) Z0FRAN IVP PRN (11:00)
[2020-11-28] MEDS ORDERED: ACETAMINOPHEN 325 MG TABLET PO PRN (11:00)
--- NOTE | 2020-11-28 11:00 | Discharge Inst-Surgical ---
D/C Lap Instructions-KIDO New, Converted, or Re-Newed RX: RX on Chart Follow Up Appt in 2 weeks Activity as tolerated High Fiber Diet 25g or more per day Avoid Alcohol, Caffeine, Spicy Valinda and Acid foods. Drink 64 fluid oz or more of fluids per day. Symptoms to Report: Fever over 101 degree F, Nausea/Vomiting If any problems/questions: Contact your physician or go to Emergency Room YOHANNES RANDOLPH MD November 28, 2020 11:00
[2020-11-28] MEDS ORDERED: LIDOCAINE JELLY 2% 6 ML SYRINGE ONE (12:23)
[2020-11-28] MEDS ORDERED: MIDAZOLAM 5 MG/5 ML (VERSED) VIAL ONE ×2 (12:24)
[2020-11-28] MEDS ORDERED: fentaNYL INJ 100 MCG/2 ML AMP ONE (12:24)
[2020-11-28] MEDS ORDERED: HURRICAINE EXT TUBE (BENZOCAINE) ONE (12:24)
[2020-11-28] MEDS ORDERED: PROPOFOL INJECTION 50 ML IV ONE ×2 (12:35→13:03)
[2020-11-28 13:45] VITALS: BP 97/55
[2020-11-28 13:50] VITALS: BP 102/59
--- NOTE | 2020-11-28 13:51 | Progress Note-Post Operative ---
Post-Operative Progess Note Surgeon (s)/Drapery Sewer Hand (s) Surgeon YOHANNES RANDOLPH MD Drapery Sewer Hand: none Pre-Operative Diagnosis GERD, change bowel habits Post-Operative Diagnosis reflux eosphagitis(stage 2), small HH(1.5cm), moderate gastritis. solid well-formed stool throughout colon with clean mucosa, mild colitis cecum. Procedure & Operative Findings Date of Procedure 11/28/20 Procedure Performed/Findings EGD with bx. colonoscopy with bx. Anesthesia Type mac Estimated Blood Loss Estimated blood loss (mL): minimal Specimens/Packing Specimens Removed ge jxn, antrum. cecum YOHANNES RANDOLPH MD November 28, 2020 13:51
[2020-11-28 14:20] VITALS: BP 99/65
--- NOTE | 2020-11-28 14:27 | Anesthesia-General Post-Op ---
MAC Patient Condition Mental Status/LOC: Same as Preop Cardiovascular: Satisfactory Nausea/Vomiting: Absent Respiratory: Satisfactory Pain: Controlled Complications: Absent Post Op Complications Complications None Follow Up Care/Instructions Patient Instructions None needed. Anesthesiology Discharge Order Discharge Order Patient is doing well, no complaints, stable vital signs, no apparent adverse anesthesia problems. No complications reported per nursing. YANCI WINTERS CRNA November 28, 2020 14:27
[2020-11-28 14:45] VITALS: BP 99/65
--- NOTE | 2020-11-28 19:00 | OPERATIVE REPORT ---
DATE OF SERVICE: 11/28/2020 ATTENDING PRIMARY CHANGE RELEASE MANAGER: [facility]. PREOPERATIVE DIAGNOSES: Gastroesophageal reflux disease, change in bowel habits encompassing a crampy lower abdominal pain with intermittent episodes of diarrhea and constipation. POSTOPERATIVE DIAGNOSES: Reflux esophagitis stage II, small hiatal hernia 1.5 cm in size, moderate gastritis, poor colonic prep with hard stool throughout the colon, likely indicating constipation at this time, mild small ulcerative plaques of the cecum, which may indicate a mild intermittent colitis. PROCEDURE: EGD with biopsy, colonoscopy with biopsy. SURGEON: Yohannes Randolph MD. ANESTHESIA: MAC DESCRIPTION OF PROCEDURE: The patient was brought to the endoscopy suite, laid in left lateral decubitus position. After adequate IV pain and sedative medications and monitored anesthesia care, the mouthpiece was applied. The endoscope was placed in the mouth, visualizing the pharynx and hypopharyngeal region. Vocal cords, epiglottis and vallecula identified and appeared to be normal. The endoscope was then slowly intubated. The esophageal opening and esophagus insufflated. The endoscope was then advanced to the first, second and third portion of the esophagus. At the level of the GE junction, a reflux esophagitis stage II identified. There were no ulcers or strictures identified in this region. A biopsy was taken with forceps with visualization of good hemostasis. The endoscope was then advanced in the stomach and endoscope retroflexed, visualizing a small hiatal hernia approximately 1.5 cm in size. There was a moderate gastritis. No formal ulcerations, polyps, or any neoplasms. A biopsy was taken of the antrum to rule out H. pylori with visualization of good hemostasis. Endoscope was then advanced into the pylorus and the first and second portions of duodenum, which appeared normal with no distal obstructions. Endoscope was then slowly withdrawn while taking a second look and suctioning of residual air with no additional findings. A digital rectal examination was performed, which did not reveal any significant hemorrhoids. Normal sphincter tone was felt and there were no palpable masses. The endoscope was then intubated and anus and rectum gently insufflated. The endoscope was then advanced through the valves of Batista of the rectum. There was a significant amount of formed hard stools; however, the mucosa was visible likely indicating that hard, impacted stools throughout the colon with prep moving around the areas of the inspissated stool. The endoscope was then advanced through the sigmoid colon where no diverticulosis identified. We then proceeded through the remainder of the descending, transverse and ascending colon to the cecum. At the level of cecum, there were very small spots, which may represent ulceration as well as a possible low level inflammatory bowel disease. Multiple biopsies were taken of this region with forceps with visualization of good hemostasis. The endoscope was then slowly withdrawn while taking a second look and suctioning of residual air with no additional findings. The patient tolerated the procedure well. For her reflux esophagitis and small hiatal hernia as well as gastritis, we will start her on Protonix 40 mg daily as well as the necessary lifestyle and diet accommodation including small and more frequent meals, avoidance of eating at night as well as head elevation while lying supine. She also needs to proceed with any form of regularly scheduled diet and exercise modality for weight loss, which will help with her reflux symptoms dramatically. We will also recommend the incorporation of high fiber diet with a fiber supplementation and should equal or exceed 25 grams daily to promote soft stools on a daily basis. There is also the possibility that she does have a low level underlying inflammatory bowel disease and that may explain why she has swing episodes of diarrhea and constipation. For now, we will just kind of have her continue with a high fiber diet and await the biopsy results. If she does have recurrence of symptoms, we would refer her to gastroenterology for further medical management. Job ID: [id number] DocumentID: [id number] Dictated Date: 11/28/2020 13:43:29 Master Sonar Technician Date: 11/28/2020 19:00:27 Dictated By: YOHANNES RANDOLPH [facility]
== END 2020-11-28 14:45 ==
LOC: ENDO 10:09
PROVIDERS: ATTEND Surgery
DX: K21.00 Gastro-esophageal reflux disease with esophagitis, without bleeding (principal); K29.50 Unspecified chronic gastritis without bleeding; B96.81 Helicobacter pylori [H. pylori] as the cause of diseases classified elsewhere; K44.9 Diaphragmatic hernia without obstruction or gangrene; K52.9 Noninfective gastroenteritis and colitis, unspecified; J45.909 Unspecified asthma, uncomplicated; K21.9 Gastro-esophageal reflux disease without esophagitis; D50.9 Iron deficiency anemia, unspecified; E66.9 Obesity, unspecified; Z68.41 Body mass index [BMI] 40.0-44.9, adult; Z79.899 Other long term (current) drug therapy
CPT/HCPCS: 84703; 88305

== ENCOUNTER 2021-02-04 18:26 | Emergency (ER) | payer MEDICAID ==
[~2021-02-04] VITALS: Ht 149.8 cm; Wt 108.0 kg
[~2021-02-04 18:26] MED LIST changes: -OMEP40CA27 PO; +OMEP40CA6 PO; +PANT40TA2 PO
--- NOTE | 2021-02-04 18:51 | ED Respiratory ---
General Stated Complaint: COUGH, VOMITING, SORE THROAT, FEVER Source: patient Exam Limitations: no limitations (SELENE ESCALONA APRN) History of Present Illness Date Seen by Provider: Feb 04, 2021 Time Seen by Provider: 18:40 Initial Comments This is a well-appearing 35-year-old female who presents to the ER with complaints of cough, sore throat, sputum production, fever, vomiting, diarrhea for the past 3 days. States that she has had both of her COIVD vaccines with her second dose around January 15. States that she has been exposed to somebody who was coughing however stated it was a "smoker's cough". Additionally states she has had some upper GI burning sensation and has been taking Tums and this helps somewhat. (SELENE ESCALONA APRN) Allergies and Home Medications Allergies Coded Allergies: No Known Drug Allergies (Unverified , 11/28/20) Home Medications Doxycycline Hyclate 100 Mg Tablet, 100 MG PO BID Prescribed by: SELENE ESCALONA on 02/04/212107 Ferrous Sulfate 325 Mg Tablet, 325 MG PO DAILY Prescribed by: BRITTA PRAKASH on 02/05/20 1650 Pantoprazole Sodium 40 Mg Tablet.dr, 40 MG PO DAILY Prescribed by: YOHANNES RANDOLPH on 11/28/20 1100 Patient Home Medication List Home Medication List Reviewed: Yes (SELENE ESCALONA APRN) Review of Systems Review of Systems Constitutional: see HPI EENTM: see HPI Respiratory: see HPI Cardiovascular: no symptoms reported Gastrointestinal: see HPI Musculoskeletal: no symptoms reported Skin: no symptoms reported Psychiatric/Neurological: No Symptoms Reported Hematologic/Lymphatic: Anemia Immunological/Allergic: no symptoms reported (SELENE ESCALONA APRN) Past Gvjxxok-Pqqygz-Bkcnlx Hx Immunizations Up To Date Tetanus Booster (TDap): Less than 5yrs (SELENE ESCALONA APRN) Seasonal Allergies Seasonal Allergies: No (SELENE ESCALONA APRN) Past Medical History Surgeries: Yes (Umbilical Hernia Repair) Abdominal, Section, Tubal Ligation Respiratory: Yes Asthma Cardiac: No Neurological: No 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 pylori) Gastroesophageal Reflux, Ulcer Musculoskeletal: No Endocrine: No HEENT: No Cancer: No Psychosocial: No Integumentary: No Blood Disorders: Yes (ANEMIA) Adverse Reaction/Blood Tranf: No (SELENE ESCALONA APRN) Family Medical History No Pertinent Family Hx (SELENE ESCALONA APRN) Physical Exam Vital Signs - First Documented 02/04/21 18:43 Temp 37.8 Pulse 89 Resp 20 B/P (MAP) 132/88 (103) Pulse Ox 100 O2 Delivery Room Air (JOSÉ MIGUEL FLYNN MD) Capillary Refill : (SELENE ESCALONA APRN) Height: 4'9.00" Weight: 205lbs. oz. 92.750207pc; 42.92 BMI Method:Stated General Appearance: WD/WN, no apparent distress Eyes: Bilateral Eye Normal Inspection, Bilateral Eye PERRL, Bilateral Eye EOMI HEENT: PERRL/EOMI, normal ENT inspection, pharyngeal erythema; No tonsillar exudate Neck: full range of motion, supple, normal inspection Respiratory: lungs clear, no respiratory distress, no accessory muscle use, decreased breath sounds Cardiovascular: regular rate, rhythm, no edema, no murmur Gastrointestinal: normal bowel sounds, non tender, soft Extremities: normal range of motion, normal inspection Neurologic/Psychiatric: no motor/sensory deficits, alert, normal mood/affect, oriented x 3 Skin: normal color, warm/dry (SELENE ESCALONA APRN) Progress/Results/Core Measures Suspected Sepsis SIRS Temperature: Pulse: Respiratory Rate: Laboratory Tests 02/04/21 18:50: White Blood Count 13.2H Blood Pressure / Mean: Laboratory Tests 02/04/21 18:50: Creatinine 0.69, Platelet Count 470H, Total Bilirubin 0.4 (SELENE ESCALONA APRN) Results/Orders Lab Results Laboratory Tests Test 02/04/21 18:44 02/04/21 18:50 02/04/21 21:12 Range/Units Influenza Type A (RT-PCR) Not Detected Not Detecte Influenza Type B (RT-PCR) Not Detected Not Detecte SARS-CoV-2 RNA (RT-PCR) Not Detected Not Detecte White Blood Count 13.2 H 4.3-11.0 10^3/uL Red Blood Count 4.33 3.80-5.11 10^6/uL Hemoglobin 7.3 L 11.5-16.0 g/dL Hematocrit 26 L 35-52 % Mean Corpuscular Volume 60 L 80-99 fL Mean Corpuscular Hemoglobin 17 L 25-34 pg Mean Corpuscular Hemoglobin Concent 28 L 32-36 g/dL Red Cell Distribution Width 19.8 H 10.0-14.5 % Platelet Count 470 H 130-400 10^3/uL Mean Platelet Volume 11.1 9.0-12.2 fL Immature Granulocyte % (Auto) 0 % Neutrophils (%) (Auto) 71 42-75 % Lymphocytes (%) (Auto) 20 12-44 % Monocytes (%) (Auto) 7 0-12 % Eosinophils (%) (Auto) 2 0-10 % Basophils (%) (Auto) 0 0-10 % Neutrophils # (Auto) 9.4 H 1.8-7.8 10^3/uL Lymphocytes # (Auto) 2.7 1.0-4.0 10^3/uL Monocytes # (Auto) 0.9 0.0-1.0 10^3/uL Eosinophils # (Auto) 0.2 0.0-0.3 10^3/uL Basophils # (Auto) 0.1 0.0-0.1 10^3/uL Immature Granulocyte # (Auto) 0.0 0.0-0.1 10^3/uL Percent Immature Platelet Fraction 5.0 0.0-7.6 % Sodium Level 139 135-145 MMOL/L Potassium Level 2.6 L 3.6-5.0 MMOL/L Chloride Level 105 98-107 MMOL/L Carbon Dioxide Level 26 21-32 MMOL/L Anion Gap 8 5-14 MMOL/L Blood Urea Nitrogen 7 7-18 MG/DL Creatinine 0.69 0.60-1.30 MG/DL Estimat Glomerular Filtration Rate 117 BUN/Creatinine Ratio 10 Glucose Level 92 70-105 MG/DL Calcium Level 9.1 8.5-10.1 MG/DL Corrected Calcium 9.2 8.5-10.1 MG/DL Total Bilirubin 0.4 0.1-1.0 MG/DL Aspartate Amino Transf (AST/SGOT) 12 5-34 U/L Alanine Aminotransferase (ALT/SGPT) 12 0-55 U/L Alkaline Phosphatase 66 40-136 U/L Total Protein 8.3 H 6.4-8.2 GM/DL Albumin 3.9 3.2-4.5 GM/DL Procalcitonin 0.04 <0.10 NG/ML Group A Streptococcus Screen NEGATIVE NEGATIVE (JOSÉ MIGUEL FLYNN MD) Micro Results Microbiology 02/04/21 Throat Culture - Preliminary, Resulted Results To Follow (JOSÉ MIGUEL FLYNN MD) Vital Signs/I&O 02/04/21 02/04/21 02/04/21 18:43 19:08 21:32 Temp 37.8 37.8 Pulse 89 84 Resp 20 20 B/P (MAP) 132/88 (103) 121/92 (103) Pulse Ox 100 100 O2 Delivery Room Air Room Air (JOSÉ MIGUEL FLYNN MD) Vital Signs/I&O Capillary Refill : (SELENE ESCALONA APRN) Progress Note : Progress Note Patient examined and in no acute distress. Orders placed for Covid and influenza swabs. Additionally will go ahead and obtain chest x-ray. Given ibuprofen 600 mg p.o. Oxygen saturation 100%, respiratory rate 18. Covid and flu negative. Chest x-ray negative for acute pathology. Orders placed for CBC, CMP, procalcitonin. Labs reviewed, noted to have low hemoglobin which is chronic for her and at baseline. K-2.6. Given KCL 40meq PO. Slight elevation in white count at 13.2. Will treat for atypical pneumonia. Patient requested testing for strep throat at time of discharge. Swab obtained. Will call with result. Strongly reinforced establishing with primary care provider, as she states she comes to ER for all her medical issues. Will have her off work to quarantine at home to see if she improves. Reviewed discharge POC and she is agreeable with plan. (SELENE ESCALONA APRN) Diagnostic Imaging Diagonstic Imaging: Xray Plain Films/CT/US/NM/MRI: chest Comments [facility]. [place], [place] NAME: TARUN SINGH [facility] REC#: [id number] PT STATUS: REG ER : 1985 PHYSICIAN: SELENE ESCALONA APRN ADMIT DATE: 02/04/21/ER Draft Date of Exam:02/04/21 CHEST 1 VIEW, AP/PA ONLY INDICATION: Cough, fever. TECHNIQUE: Single view chest 800 p.m.. CORRELATION STUDY: 04/27/2020 FINDINGS: The heart size, mediastinal configuration and pulmonary vascularity are within normal limits. The lungs are clear with no consolidating infiltrate. There is no significant effusion or pneumothorax. IMPRESSION: 1. Generally stable, negative appearing portable chest. Dictated on workstation # [id number] Dict: 02/04/211957 Trans: 02/04/211958 DO [id number] Interpreted by: JOE WILSON DO Electronically signed by: Reviewed: Reviewed by Me (SELENE ESCALONA APRN) Departure Impression Primary Impression: Upper respiratory infection Additional Impression: Hypokalemia Disposition: HOME, SELF-CARE Condition: Stable Departure-Patient Inst. Decision time for Depature: 20:50 (SELENE ESCALONA APRN) [place]errals: [facility] [place] Primary Care Physician FREDI GUILLEN APRN (Family) Primary Care Physician Patient Instructions: Hypokalemia (DC), Upper Respiratory Infection ED Add. Discharge Instructions: Plan: 1. Drink plenty of fluids. Increase foods high potassium. May drink propel, Gatorade, or Powerade. 2. Take Doxycycline as directed. Avoid direct sunlight as you skin may be more sensitive. 3. Follow up with your doctor if your symptoms persist. 4. May use Tylenol or Ibuprofen as needed for fever/pain. Warm salt water gargles three times a day. 5. Return for any new, concerning, or worsening symptoms. Scripts Doxycycline Hyclate (Doxycycline Hyclate) 100 Mg Tablet 100 MG PO BID for 7 Days, #14 TAB 0 Refills Prov: SELENE ESCALONA APRN 02/04/21 Work/School Note: Work Release Form Date Seen in the Emergency Department: Feb 04, 2021 Return to Work: Feb 09, 2021 ATTENDING PHYSICIAN NOTE: I was physically present as attending physician in the emergency department during the care of this patient, but I was not directly involved in the decision making or delivery of care for this patient. (JOSÉ MIGUEL FLYNN MD) SELENE ESCALONA APRN Feb 04, 2021 18:51 JOSÉ MIGUEL FLYNN MD Feb 06, 2021 07:36
[2021-02-04] MEDS ORDERED: IBUPROFEN 600 MG (MOTRIN) TAB PO ONE ×2 (19:07→19:15)
[2021-02-04] MEDS ORDERED: ONDANSETRON 4 MG/2 ML (SDV) Z0FRAN ONE (19:19)
[2021-02-04] MEDS ORDERED: LIDOCAINE 2% VISCOUS 15 ML UDC ONE (19:19)
[2021-02-04] MEDS ORDERED: ANTACID SUSP 30 ML UDC (MYLANTA) ONE (19:20)
[2021-02-04] MEDS ORDERED: ONDANSETRON 4 MG/2 ML (SDV) Z0FRAN IVP ONE (19:30)
--- NOTE | 2021-02-04 19:59 | Diagnostic Imaging Report ---
INDICATION: Cough, fever. TECHNIQUE: Single view chest 800 p.m.. CORRELATION STUDY: 04/27/2020 FINDINGS: The heart size, mediastinal configuration and pulmonary vascularity are within normal limits. The lungs are clear with no consolidating infiltrate. There is no significant effusion or pneumothorax. IMPRESSION: 1. Generally stable, negative appearing portable chest. Dictated by: Dictated on workstation # [id number]
[2021-02-04] MEDS ORDERED: ANTACID SUSP 30 ML UDC (MYLANTA) PO ONE (20:00)
[2021-02-04] MEDS ORDERED: LIDOCAINE 2% VISCOUS 15 ML UDC PO ONE (20:00)
[2021-02-04 20:20] LABS: BASOPHILS # (AUTO) 0.1 10^3/uL (0.0-0.1); BASOPHILS % (AUTO) 0 % (0-10); EOSINOPHILS # (AUTO) 0.2 10^3/uL (0.0-0.3); EOSINOPHILS % (AUTO) 2 % (0-10); HEMATOCRIT 26 % (35-52); HEMOGLOBIN 7.3 g/dL (11.5-16.0); LYMPHOCYTES # (AUTO) 2.7 10^3/uL (1.0-4.0); LYMPHOCYTES % (AUTO) 20 % (12-44); MEAN CORPUSCULAR HEMOGLOBIN 17 pg (25-34); MEAN CORPUSCULAR HGB CONC 28 g/dL (32-36); MEAN CORPUSCULAR VOLUME 60 fL (80-99); MEAN PLATELET VOLUME 11.1 fL (9.0-12.2); MONOCYTES # (AUTO) 0.9 10^3/uL (0.0-1.0); MONOCYTES % (AUTO) 7 % (0-12); NEUTROPHILS # (AUTO) 9.4 10^3/uL (1.8-7.8); NEUTROPHILS % (AUTO) 71 % (42-75); PLATELET COUNT 470 10^3/uL (130-400); WHITE BLOOD COUNT 13.2 10^3/uL (4.3-11.0)
[2021-02-04 20:29] LABS: ALBUMIN 3.9 GM/DL (3.2-4.5); BILIRUBIN,TOTAL 0.4 MG/DL (0.1-1.0); CALCIUM 9.1 MG/DL (8.5-10.1); CREATININE SERUM 0.69 MG/DL (0.60-1.30); POTASSIUM 2.6 MMOL/L (3.6-5.0); TOTAL PROTEIN 8.3 GM/DL (6.4-8.2)
[2021-02-04] MEDS ORDERED: KCL 20 MEQ TAB (K-DUR) PO ONE (21:00)
[2021-02-04] MEDS ORDERED: DOXY100T2 PO (21:08)
[2021-02-04] MEDS ORDERED: DOXYCYCLINE 100 MG (VIBRAMYCIN) TABLET PO ONE (21:15)
[2021-02-04] MEDS ORDERED: CHLORASEPTIC LOZENGE MM ONE (21:30)
[2021-02-04 21:32] VITALS: BP 121/92
== END 2021-02-04 21:32 | disposition home or self-care (01) ==
LOC: EDUNIT# 18:26 → ER 18:28
DX: J06.9 Acute upper respiratory infection, unspecified (principal); E87.6 Hypokalemia; J45.909 Unspecified asthma, uncomplicated; K21.9 Gastro-esophageal reflux disease without esophagitis; Z20.822 Contact with and (suspected) exposure to COVID-19; Z79.899 Other long term (current) drug therapy
CPT/HCPCS: 36415; 71045; 80053; 84145; 85025; 87430; 87636

== ENCOUNTER 2021-04-13 16:02 | Emergency (ER) | payer MEDICAID ==
[~2021-04-13] VITALS: Ht 121.9 cm; Wt 107.4 kg
[2021-04-13] MEDS ORDERED: LACTATED RINGERS 1,000 ML IV ONE (16:30)
[2021-04-13] MEDS ORDERED: ASPIRIN 81 MG CHEW (CHILDREN'S ASA) PO ONE (16:45)
--- NOTE | 2021-04-13 16:50 | ED General ---
General Chief Complaint: Chest Pain Stated Complaint: CP/COUGH/CHILLS Nursing Triage Note: increased sob with new onset chest pain started this am at 0800, took tylenol. 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 PAIN IS CONSTANT, NOTHING WORSENS OR IMPROVES PAIN--BUT HAS NOT TAKEN ANYTHING FOR PAIN AT ANY TIME C/O SHORTNESS OF BREATH C/O PRODUCTIVE COUGH WITH GREEN SPUTUM UNAWARE OF FEVER, BUT HAS HAD CHILLS NO SWELLING IN LEGS/ FEET OR PAIN IN CALVES NO PALPITATIONS NO SORE THROAT NO LOSS OF TASTE/SMELL NO NASAL CONGESTION NO GI SYMPTOMS PT HAS ASTHMA AND USED HER INHALER THIS AM WITHOUT RELIEF PT HAS HAD MODERNA COVID-19 VACCINE X 2--LAST ONE IN DECEMBER NO KNOWN SICK CONTACTS HAS NOT SOUGHT CARE UNTIL TODAY, SYMPTOMS A LITTLE WORSE TODAY RATES PAIN /10 PT WITH A MULTITUDE OF VISITS --ESSENTIALLY ALL FOR VARIOUS PAIN COMPLAINTS PCP: [facility] (EMETERIO FLOWERS DO) Allergies and Home Medications Allergies Coded Allergies: No Known Drug Allergies (Unverified , 11/28/20) Patient Home Medication List Home Medication List Reviewed: Yes (JOSÉ MIGUEL FLYNN MD) Albuterol (Proair Hfa) 8.5 Gm Hfa.aer.ad, (Reported) Entered as Reported by: BOB GREY on 09/23/172250 Doxycycline Hyclate (Doxycycline Hyclate) 100 Mg Tablet, 100 MG PO BID Prescribed by: SELENE ESCALONA on 02/04/212107 Ferrous Sulfate (Iron) 325 Mg Tablet, 325 MG PO DAILY Prescribed by: BRITTA PRAKASH on 02/05/201649 Omeprazole (Omeprazole) 20 Mg Capsule., 20 MG PO BID Prescribed by: JOSÉ MIGUEL SIERRA on 04/13/211918 Pantoprazole Sodium (Protonix) 40 Mg Tablet., 40 MG PO DAILY Prescribed by: YOHANNES RANDOLPH on 11/28/20 1100 Review of Systems Review of Systems Constitutional: see HPI, chills EENTM: no symptoms reported Respiratory: see HPI, cough, short of breath Cardiovascular: see HPI, chest pain; No edema, No palpitations, No syncope, No vascular heart diseas Gastrointestinal: no symptoms reported; No nausea, No vomiting Genitourinary: no symptoms reported : No (LMP 3 MONTHS AGO, IS ON DEPO-PROVERA AND HAS HAD BTL) Musculoskeletal: no symptoms reported Skin: no symptoms reported Psychiatric/Neurological: No Symptoms Reported Hematologic/Lymphatic: No Symptoms Reported Immunological/Allergic: no symptoms reported (EMETERIO FLOWERS DO) Past Kilmues-Wufjca-Oiuwcn Hx Patient Social History Tobacco Use?: No Substance use?: No Substance frequency: Several times a month (EMETERIO FLOWERS DO) Immunizations Up To Date Tetanus Booster (TDap): Less than 5yrs (EMETERIO FLOWERS DO) Seasonal Allergies Seasonal Allergies: No (EMETERIO FLOWERS DO) Past Medical History Surgeries: Yes (Umbilical Hernia Repair) Abdominal, Section, Tubal Ligation Respiratory: Yes Asthma Cardiac: Yes Hypertension Neurological: No : No (DEPO-PROVERA) 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 pylori) Gastroesophageal Reflux, Ulcer Musculoskeletal: No Endocrine: Yes (OBESE) HEENT: No Cancer: No Psychosocial: No Integumentary: No Blood Disorders: Yes (ANEMIA--HGB IN 7 TO 8 RANGE CHRONICALLY) Adverse Reaction/Blood Tranf: No (EMETERIO FLOWERS DO) Family Medical History No Pertinent Family Hx (EMETERIO FLOWERS DO) Physical Exam Vital Signs Vital Signs - First Documented 04/13/21 16:23 Temp 37.4 Pulse 93 Resp 20 B/P (MAP) 153/102 (119) Pulse Ox 100 (JOSÉ MIGUEL FLYNN MD) Vital Signs Capillary Refill : Less Than 3 Seconds (EMETERIO FLOWERS DO) Height, Weight, BMI Height: 4'9.00" Weight: 205lbs. oz. 92.956956jl; 72.00 BMI Method:Stated General Appearance: No Apparent Distress, WD/WN, Anxious, Obese HEENT: PERRL/EOMI Neck: Normal Inspection Respiratory: Normal Breath Sounds, No Accessory Muscle Use, No Respiratory Distress, Other (MARKED MID STERNAL TENDERNESS--PALPATION REPRODUCES PAIN ) Cardiovascular: Regular Rate, Rhythm, No Edema, No JVD, No Murmur, Normal Peripheral Pulses Gastrointestinal: Normal Bowel Sounds, No Organomegaly, No Pulsatile Mass, Non Tender, Soft Back: No CVA Tenderness Extremity: Normal Capillary Refill, Normal Inspection, Normal Range of Motion, Non Tender, No Calf Tenderness, No Pedal Edema Neurologic/Psychiatric: Alert, Oriented x3, No Motor/Sensory Deficits, lacquer shader II- XII Norm as Tested Skin: Normal Color (PT IS BLACK), Warm/Dry; No Rash (EMETERIO FLOWERS DO) Focused Exam Lactate Level 04/13/21 16:45: Lactic Acid Level 1.55 (JOSÉ MIGUEL FLYNN MD) Lactic Acid Level Laboratory Tests Test 04/13/21 16:45 Lactic Acid Level 1.55 MMOL/L (0.50-2.00) (JOSÉ MIGUEL FLYNN MD) Progress/Results/Core Measures Suspected Sepsis SIRS Temperature: Pulse: 93 Respiratory Rate: 20 Laboratory Tests 04/13/21 16:45: White Blood Count 11.3H Blood Pressure 153 /102 Mean: 119 04/13/21 16:45: Lactic Acid Level 1.55 Laboratory Tests 04/13/21 16:45: Creatinine 0.65, INR Comment 1.0, Platelet Count 536H, Total Bilirubin 0.3 (EMETERIO FLOWERS DO) Results/Orders Lab Results Laboratory Tests Test 04/13/21 16:45 Range/Units White Blood Count 11.3 H 4.3-11.0 10^3/uL Red Blood Count 4.47 3.80-5.11 10^6/uL Hemoglobin 7.2 L 11.5-16.0 g/dL Hematocrit 27 L 35-52 % Mean Corpuscular Volume 60 L 80-99 fL Mean Corpuscular Hemoglobin 16 L 25-34 pg Mean Corpuscular Hemoglobin Concent 27 L 32-36 g/dL Red Cell Distribution Width 18.6 H 10.0-14.5 % Platelet Count 536 H 130-400 10^3/uL Mean Platelet Volume 10.8 9.0-12.2 fL Immature Granulocyte % (Auto) 0 % Neutrophils (%) (Auto) 67 42-75 % Lymphocytes (%) (Auto) 22 12-44 % Monocytes (%) (Auto) 8 0-12 % Eosinophils (%) (Auto) 2 0-10 % Basophils (%) (Auto) 1 0-10 % Neutrophils # (Auto) 7.6 1.8-7.8 10^3/uL Lymphocytes # (Auto) 2.5 1.0-4.0 10^3/uL Monocytes # (Auto) 0.9 0.0-1.0 10^3/uL Eosinophils # (Auto) 0.2 0.0-0.3 10^3/uL Basophils # (Auto) 0.1 0.0-0.1 10^3/uL Immature Granulocyte # (Auto) 0.0 0.0-0.1 10^3/uL Erythrocyte Sedimentation Rate 74 H 0-20 MM/HR Prothrombin Time 13.5 12.2-14.7 SEC INR Comment 1.0 0.8-1.4 Activated Partial Thromboplast Time 34 24-35 SEC D-Dimer 0.84 H 0.00-0.49 UG/ML Sodium Level 141 135-145 MMOL/L Potassium Level 3.2 L 3.6-5.0 MMOL/L Chloride Level 106 98-107 MMOL/L Carbon Dioxide Level 24 21-32 MMOL/L Anion Gap 11 5-14 MMOL/L Blood Urea Nitrogen 7 7-18 MG/DL Creatinine 0.65 0.60-1.30 MG/DL Estimat Glomerular Filtration Rate 125 BUN/Creatinine Ratio 11 Glucose Level 80 70-105 MG/DL Lactic Acid Level 1.55 0.50-2.00 MMOL/L Calcium Level 9.2 8.5-10.1 MG/DL Corrected Calcium 9.2 8.5-10.1 MG/DL Magnesium Level 1.9 1.6-2.4 MG/DL Total Bilirubin 0.3 0.1-1.0 MG/DL Aspartate Amino Transf (AST/SGOT) 13 5-34 U/L Alanine Aminotransferase (ALT/SGPT) 13 0-55 U/L Alkaline Phosphatase 72 40-136 U/L Lactate Dehydrogenase 334 H 125-220 U/L Total Creatine Kinase 128 29-168 U/L Creatine Kinase MB 0.8 <6.6 NG/ML Myoglobin 28.2 10.0-92.0 NG/ML Troponin I < 0.028 <0.028 NG/ML C-Reactive Protein High Sensitivity 2.47 H 0.00-0.50 MG/DL B-Type Natriuretic Peptide < 10.0 <100.0 PG/ML Total Protein 8.2 6.4-8.2 GM/DL Albumin 4.0 3.2-4.5 GM/DL Lipase 26 8-78 U/L Procalcitonin 0.03 <0.10 NG/ML Serum Test, Qualitative NEGATIVE NEGATIVE Influenza Type A (RT-PCR) Not Detected Not Detecte Influenza Type B (RT-PCR) Not Detected Not Detecte SARS-CoV-2 RNA (RT-PCR) Not Detected Not Detecte (JOSÉ MIGUEL FLYNN MD) My Orders Orders - JOSÉ MIGUEL FLYNN MD Ondansetron Injection (Zofran Injectio (04/13/21 18:30) Lidocaine 2% Viscous 15 Ml (Xylocaine Vi (04/13/21 18:30) Antacid Suspension (Mylanta Suspension (04/13/21 18:30) Famotidine Injection (Pepcid Injection) (04/13/21 18:29) Potassium Chloride (Tablet) (Klor Con Ta (04/13/21 19:15) (JOSÉ MIGUEL FLYNN MD) Medications Given in ED Current Medications Medications Dose Ordered Sig/Giana Route Start Time Stop Time Status Last Admin Dose Admin Al Hydrox/Mg Hydrox/Simethicone 30 ml ONCE ONCE PO 04/13/21 18:30 04/13/21 18:31 DC 04/13/21 18:39 30 ML Aspirin 324 mg ONCE ONCE PO 04/13/21 16:45 04/13/21 16:46 DC 04/13/21 17:11 324 MG Iohexol 100 ml ONCE ONCE IV 04/13/21 18:00 04/13/21 18:01 DC 04/13/21 17:59 83 ML Ketorolac Tromethamine 30 mg ONCE ONCE IVP 04/13/21 17:30 04/13/21 17:31 DC 04/13/21 18:02 30 MG Lactated Ringer's 1,000 ml @ 0 mls/hr Q0M ONCE IV 04/13/21 16:30 04/13/21 16:31 DC 04/13/21 17:11 1,000 MLS/HR Lidocaine HCl 15 ml ONCE ONCE PO 04/13/21 18:30 04/13/21 18:31 DC 04/13/21 18:40 15 ML Ondansetron HCl 4 mg ONCE ONCE IVP 04/13/21 18:30 04/13/21 18:31 DC 04/13/21 18:47 4 MG Sodium Chloride 10 ml NEEDED PRN IV 04/13/21 18:00 04/13/21 17:59 10 ML Sodium Chloride 100 ml ONCE ONCE IV 04/13/21 18:00 04/13/21 18:01 DC 04/13/21 17:59 80 ML (JOSÉ MIGUEL FLYNN MD) Vital Signs/I&O 04/13/21 16:23 Temp 37.4 Pulse 93 Resp 20 B/P (MAP) 153/102 (119) Pulse Ox 100 (JOSÉ MIGUEL FLYNN MD) Vital Signs/I&O Capillary Refill : Less Than 3 Seconds (EMETERIO FLOWERS DO) Blood Pressure Mean: 119 Progress Note : Progress Note PLACED IN ISOLATION ROOM PPE WORN AT ALL TIMES COVID-19 TESTING PERFORMED--LATER REMOVED FROM ISOLATION STATUS WITH NEGATIVE COVID-19 TEST, AND PT IS FULLY VACCINATED. GIVEN ASPIRIN AND TORADOL 1800--CARE TURNED OVER TO DR. FLYNN AT SHIFT CHANGE, CT PENDING (EMETERIO FLOWERS DO) Progress Note #1: Time: 18:35 Progress Note I assumed care of this patient from Dr. Flowers at shift change. CT angiogram has been reviewed and report reviewed. There were no acute abnormalities. Patient was reexamined and found to appear short of breath. After discussing her negative cardiopulmonary work-up and providing reassurance, the shortness of breath seemed to improve. She was tender upon palpation of the sternal region and in the epigastrium. She will be given a trial of Pepcid, Zofran, and GI cocktail. Esophagitis/gastritis is suspected. She will be encouraged to follow-up closely with her primary care provider regarding her anemia. Prior labs were reviewed and she has a history of iron deficiency. Progress Note #2: Time: 19:17 Progress Note Patient reports improvement but not resolution with GI cocktail. She still is tender in the epigastrium. We discussed the need for antiacid therapy and possibly endoscopy. She is being given potassium 20 mEq prior to discharge to treat her hypokalemia. Close follow-up with her primary care provider is being encouraged. We also discussed her chronic anemia and the need for close follow- up to monitor that as well. See discharge instructions for further discussion. (JOSÉ MIGUEL FLYNN MD) ECG Initial ECG Impression Date: Apr 13, 2021 Initial ECG Impression Time: 16:32 Initial ECG Rate: 92 Initial ECG Rhythm: Normal Sinus (EMETERIO FLOWERS DO) Diagnostic Imaging Comments CXR--PER RADIOLOGIST REPORT AT 1748 FINDINGS: Heart size and pulmonary vascularity are normal. Lungs are clear. There are no effusions or pneumothoraces. IMPRESSION: Negative chest. Reviewed: Reviewed by Me (EMETERIO FLOWERS DO) Diagonstic Imaging: CT Plain Films/CT/US/NM/MRI: chest Comments CT angiogram chest viewed by me and report reviewed. See report below: NAME: TARUN SINGH [facility] REC#: [id number] PT STATUS: REG ER : 1985 PHYSICIAN: EMETERIO FLOWERS DO ADMIT DATE: 04/13/21/ER Signed Date of Exam:04/13/21 CT ANGIO CHEST W PROCEDURE: CT angiography of the chest with contrast. TECHNIQUE: Multiple contiguous axial images were obtained through the chest after uneventful bolus administration of intravenous contrast. 3D reconstructed CTA MIP acquisitions were also performed. Auto Exposure Controls were utilized during the CT exam to meet ALARA standards for radiation dose reduction. INDICATION: Chest pain, shortness of breath. FINDINGS: The lungs are clear. There are no effusions or pneumothoraces. There is no right ventricular strain. There are no pulmonary emboli. Aorta appears normal. There is no hilar or mediastinal lymphadenopathy. IMPRESSION: Negative CTA chest. Dictated by: Dictated on workstation # [id number] Dict: 04/13/211801 Trans: 04/13/211810 [id number] [id number] Interpreted by: CINDY COUCH MD Electronically signed by: CINDY COUCH MD 04/13/211810 (JOSÉ MIGUEL FLYNN MD) Departure Impression Primary Impression: Atypical chest pain Additional Impressions: Epigastric pain Chronic anemia Shortness of breath Hypokalemia Disposition: 01 HOME, SELF-CARE Condition: Improved Departure-Patient Inst. Decision time for Depature: 19:24 (JOSÉ MIGUEL FLYNN MD) Referrals: [facility] [place] Primary Care Physician Patient Instructions: Acid Reflux and Gastroesophageal Reflux Disease in Adults, Chest Pain That Is Not Caused by the Heart (DC), Gastritis Add. Discharge Instructions: Follow-up with your primary care provider as soon as possible. If you do not have resolution of your upper abdominal and chest discomfort within 1 to 2 weeks, discussed the potential for endoscopy to visualize your stomach and esophagus. This can be arranged by your primary care provider. You also need to discuss your chronic anemia and your low potassium level with your primary care provider. These issues may be contributing to your shortness of breath and other symptoms. Take omeprazole as prescribed twice daily for the next month. Continue taking this medication even if you feel better. Also avoid the following: Eating large meals, eating close to bedtime, caffeine, carbonation, chocolate, citrus fruits and juices, tomato products, alcohol, tobacco, acidic foods, spicy foods, fatty or greasy foods, NSAID medications such as ibuprofen or naproxen, mints, or anything else you know irritates your stomach. You may take Tylenol (acetaminophen) up to 1000 mg every 6 hours as needed for pain. Call with questions or concerns. Return to the ER if you have worsening symptoms. All discharge instructions reviewed with patient and/or family. Voiced understanding. Scripts Omeprazole (Omeprazole) 20 Mg Capsule. 20 MG PO BID, #60 CAP Prov: JOSÉ MIGUEL FLYNN MD 04/13/21 Copy Copies To 1: OSWALD AMES LISA K DO Apr 13, 2021 16:49 JOSÉ MIGUEL FLYNN MD Apr 13, 2021 18:21
[2021-04-13 17:04] LABS: BASOPHILS # (AUTO) 0.1 10^3/uL (0.0-0.1); BASOPHILS % (AUTO) 1 % (0-10); EOSINOPHILS # (AUTO) 0.2 10^3/uL (0.0-0.3); EOSINOPHILS % (AUTO) 2 % (0-10); HEMATOCRIT 27 % (35-52); HEMOGLOBIN 7.2 g/dL (11.5-16.0); LYMPHOCYTES # (AUTO) 2.5 10^3/uL (1.0-4.0); LYMPHOCYTES % (AUTO) 22 % (12-44); MEAN CORPUSCULAR HEMOGLOBIN 16 pg (25-34); MEAN CORPUSCULAR HGB CONC 27 g/dL (32-36); MEAN CORPUSCULAR VOLUME 60 fL (80-99); MEAN PLATELET VOLUME 10.8 fL (9.0-12.2); MONOCYTES # (AUTO) 0.9 10^3/uL (0.0-1.0); MONOCYTES % (AUTO) 8 % (0-12); NEUTROPHILS # (AUTO) 7.6 10^3/uL (1.8-7.8); NEUTROPHILS % (AUTO) 67 % (42-75); PLATELET COUNT 536 10^3/uL (130-400); WHITE BLOOD COUNT 11.3 10^3/uL (4.3-11.0)
[2021-04-13 17:12] LABS: CHLORIDE 106 MMOL/L (98-107); POTASSIUM 3.2 MMOL/L (3.6-5.0); SODIUM 141 MMOL/L (135-145)
[2021-04-13 17:13] LABS: CALCIUM 9.2 MG/DL (8.5-10.1)
[2021-04-13 17:14] LABS: GLUCOSE 80 MG/DL (70-105); TOTAL PROTEIN 8.2 GM/DL (6.4-8.2)
[2021-04-13 17:16] LABS: BILIRUBIN,TOTAL 0.3 MG/DL (0.1-1.0); CARBON DIOXIDE 24 MMOL/L (21-32)
[2021-04-13 17:18] LABS: ALKALINE PHOSPHATASE 72 U/L (40-136); CREATININE SERUM 0.65 MG/DL (0.60-1.30); GFR ESTIMATED 125
[2021-04-13 17:19] LABS: BUN/CREATININE RATIO 11
[2021-04-13 17:21] LABS: ALANINE AMINOTRANSFERASE 13 U/L (0-55); FIBRIN DEGRADATION PRODUCTS 0.84 UG/ML (0.00-0.49); MAGNESIUM 1.9 MG/DL (1.6-2.4); PROTHROMBIN TIME PATIENT 13.5 SEC (12.2-14.7)
[2021-04-13 17:22] LABS: CREATINE KINASE 128 U/L (29-168); LIPASE 26 U/L (8-78)
[2021-04-13 17:28] LABS: ERYTHROCYTE SEDIMENTATION RATE 74 MM/HR (0-20)
[2021-04-13 17:30] LABS: CREATINE KINASE MB 0.8 NG/ML (<6.6)
[2021-04-13] MEDS ORDERED: KETOROLAC 30 MG/ML VIAL IVP ONE (17:30)
--- NOTE | 2021-04-13 17:45 | Diagnostic Imaging Report ---
INDICATION: Chest pain and shortness of breath. EXAMINATION: Portable chest at 5:33 p.m. FINDINGS: Heart size and pulmonary vascularity are normal. Lungs are clear. There are no effusions or pneumothoraces. IMPRESSION: Negative chest. Dictated by: Dictated on workstation # [id number]
[2021-04-13] MEDS ORDERED: HOLD METFORMIN - RECEIVED CONTRAST 20 ML VIAL IV SCH (18:00)
[2021-04-13] MEDS ORDERED: NS 100 ML (IVPB) BAG IV ONE (18:00)
[2021-04-13] MEDS ORDERED: IOHEXOL 350 MG/ML 100 ML (OMNIPAQUE 350) VIAL IV ONE (18:00)
[2021-04-13] MEDS ORDERED: CATHETER FLUSH 10 ML SYR IV PRN (18:00)
--- NOTE | 2021-04-13 18:11 | Diagnostic Imaging Report ---
PROCEDURE: CT angiography of the chest with contrast. TECHNIQUE: Multiple contiguous axial images were obtained through the chest after uneventful bolus administration of intravenous contrast. 3D reconstructed CTA MIP acquisitions were also performed. Auto Exposure Controls were utilized during the CT exam to meet ALARA standards for radiation dose reduction. INDICATION: Chest pain, shortness of breath. FINDINGS: The lungs are clear. There are no effusions or pneumothoraces. There is no right ventricular strain. There are no pulmonary emboli. Aorta appears normal. There is no hilar or mediastinal lymphadenopathy. IMPRESSION: Negative CTA chest. Dictated by: Dictated on workstation # [id number]
[2021-04-13] MEDS ORDERED: FAMOTIDINE 20MG/2ML IV (PEPCID) IV STA (18:29)
[2021-04-13] MEDS ORDERED: ONDANSETRON 4 MG/2 ML (SDV) Z0FRAN IVP ONE (18:30)
[2021-04-13] MEDS ORDERED: ANTACID SUSP 30 ML UDC (MYLANTA) PO ONE (18:30)
[2021-04-13] MEDS ORDERED: LIDOCAINE 2% VISCOUS 15 ML UDC PO ONE (18:30)
[2021-04-13] MEDS ORDERED: KCL 10 MEQ TAB (MICRO K) PO ONE (19:15)
[2021-04-13] MEDS ORDERED: OMEP20CA18 PO (19:19)
[2021-04-13 19:36] VITALS: BP 125/83
== END 2021-04-13 19:36 | disposition home or self-care (01) ==
LOC: EDUNIT# 16:02 → ER 16:03
DX: R07.9 Chest pain, unspecified (principal); R10.13 Epigastric pain; D64.9 Anemia, unspecified; R06.02 Shortness of breath; E87.6 Hypokalemia; E66.9 Obesity, unspecified; J45.909 Unspecified asthma, uncomplicated; I10 Essential (primary) hypertension; K21.9 Gastro-esophageal reflux disease without esophagitis; Z68.45 Body mass index [BMI] 70 or greater, adult; Z20.822 Contact with and (suspected) exposure to COVID-19; Z79.899 Other long term (current) drug therapy
CPT/HCPCS: 36415; 71045; 71275; 80053; 82550; 82553; 83605; 83615; 83690; 83735; 83874; 83880; 84145; 84484; 84703; 85025; 85379; 85610; 85652; 85730; 86141; 87040; 87636; 93005; 93041

== ENCOUNTER 2021-05-11 15:45 | Emergency (ER) | payer MEDICAID ==
[~2021-05-11] VITALS: Ht 149.8 cm; Wt 106.8 kg
[~2021-05-11 15:45] MED LIST changes: +CLIN-144 PO; -CLIN300C12 PO
--- NOTE | 2021-05-11 15:58 | ED General ---
General Chief Complaint: Abdominal/GI Problems Stated Complaint: ABD PAIN/CRAMPING Source of Information: Patient Exam Limitations: No Limitations History of Present Illness Date Seen by Provider: May 11, 2021 Time Seen by Provider: 15:57 Initial Comments To ER with a 1 week history of epigastric abdominal pain and cramping associated with diarrhea no fever no chills no nausea. Last food intake was yesterday. Still has her gallbladder. Timing/Duration: 1 Week Severity: Moderate Associated Systoms: Nausea/Vomiting Allergies and Home Medications Allergies Coded Allergies: No Known Drug Allergies (Unverified , 11/28/20) Patient Home Medication List Home Medication List Reviewed: Yes Albuterol (Proair Hfa) 8.5 Gm Hfa.aer.ad, (Reported) Entered as Reported by: BOB GREY on 09/23/171 Doxycycline Hyclate (Doxycycline Hyclate) 100 Mg Tablet, 100 MG PO BID Prescribed by: SELENE ESCALONA on 02/04/21 2108 Ferrous Sulfate (Iron) 325 Mg Tablet, 325 MG PO DAILY Prescribed by: BRITTA PRAKASH on 02/05/20 1650 Hyoscyamine Sulfate (Levsin-Sl) 0.125 Mg Tab.subl, 0.125 MG SL Q4H Prescribed by: KIM AYALA on 05/11/21 1640 Omeprazole (Omeprazole) 20 Mg Capsule.dr, 20 MG PO BID Prescribed by: JOSÉ MIGUEL SIERRA on 04/13/21 1919 Pantoprazole Sodium (Protonix) 40 Mg Tablet.dr, 40 MG PO DAILY Prescribed by: YOHANNES RANDOLPH on 11/28/20 1100 Review of Systems Review of Systems Constitutional: see HPI EENTM: see HPI Respiratory: no symptoms reported Cardiovascular: no symptoms reported Genitourinary: no symptoms reported Musculoskeletal: no symptoms reported Skin: no symptoms reported Psychiatric/Neurological: No Symptoms Reported Past Nbammoo-Hgqqda-Knkedy Hx Immunizations Up To Date Tetanus Booster (TDap): Less than 5yrs First/Initial COVID19 Vaccinat: DECEMBER 2020 Second COVID19 Vaccination Anoop: JANUARY 23 2021 Seasonal Allergies Seasonal Allergies: No Past Medical History Surgeries: Yes (Umbilical Hernia Repair) Abdominal, Section, Tubal Ligation Respiratory: Yes Asthma Cardiac: Yes Hypertension 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 pylori) Gastroesophageal Reflux, Ulcer Musculoskeletal: No Endocrine: Yes (OBESE) HEENT: No Cancer: No Psychosocial: No Integumentary: No Blood Disorders: Yes (ANEMIA--HGB IN 7 TO 8 RANGE CHRONICALLY) Adverse Reaction/Blood Tranf: No Family Medical History No Pertinent Family Hx Physical Exam Vital Signs Vital Signs - First Documented 05/11/21 15:55 Temp 36.4 Pulse 98 Resp 18 B/P (MAP) 120/78 (92) Pulse Ox 98 O2 Delivery Room Air Capillary Refill : Height, Weight, BMI Height: 4'9.00" Weight: 205lbs. oz. 92.990185bf; 72.00 BMI Method:Stated General Appearance: No Apparent Distress, WD/WN, Obese (Alert and oriented very pleasant no distress) Eyes: Bilateral Eye Normal Inspection, Bilateral Eye PERRL, Bilateral Eye EOMI HEENT: PERRL/EOMI, TMs Normal Neck: Full Range of Motion, Normal Inspection Respiratory: No Accessory Muscle Use, No Respiratory Distress Cardiovascular: Regular Rate, Rhythm, Normal Peripheral Pulses Gastrointestinal: Normal Bowel Sounds, Soft, Tenderness (Minimal tenderness ep igastric) Extremity: Normal Capillary Refill, Normal Inspection Neurologic/Psychiatric: Alert, Oriented x3 Skin: Normal Color, Warm/Dry Progress/Results/Core Measures Suspected Sepsis SIRS Temperature: Pulse: Respiratory Rate: Laboratory Tests 05/11/21 15:56: White Blood Count 11.8H Blood Pressure / Mean: Laboratory Tests 05/11/21 15:56: Creatinine 0.67, Platelet Count 571H, Total Bilirubin 0.3 Results/Orders Lab Results Laboratory Tests Test 05/11/21 15:56 05/11/21 16:00 Range/Units White Blood Count 11.8 H 4.3-11.0 10^3/uL Red Blood Count 4.78 3.80-5.11 10^6/uL Hemoglobin 7.6 L 11.5-16.0 g/dL Hematocrit 28 L 35-52 % Mean Corpuscular Volume 58 L 80-99 fL Mean Corpuscular Hemoglobin 16 L 25-34 pg Mean Corpuscular Hemoglobin Concent 27 L 32-36 g/dL Red Cell Distribution Width 19.2 H 10.0-14.5 % Platelet Count 571 H 130-400 10^3/uL Mean Platelet Volume 10.5 9.0-12.2 fL Immature Granulocyte % (Auto) 0 % Neutrophils (%) (Auto) 68 42-75 % Lymphocytes (%) (Auto) 24 12-44 % Monocytes (%) (Auto) 6 0-12 % Eosinophils (%) (Auto) 2 0-10 % Basophils (%) (Auto) 1 0-10 % Neutrophils # (Auto) 8.0 H 1.8-7.8 10^3/uL Lymphocytes # (Auto) 2.8 1.0-4.0 10^3/uL Monocytes # (Auto) 0.7 0.0-1.0 10^3/uL Eosinophils # (Auto) 0.3 0.0-0.3 10^3/uL Basophils # (Auto) 0.1 0.0-0.1 10^3/uL Immature Granulocyte # (Auto) 0.0 0.0-0.1 10^3/uL Sodium Level 140 135-145 MMOL/L Potassium Level 3.5 L 3.6-5.0 MMOL/L Chloride Level 106 98-107 MMOL/L Carbon Dioxide Level 20 L 21-32 MMOL/L Anion Gap 14 5-14 MMOL/L Blood Urea Nitrogen 7 7-18 MG/DL Creatinine 0.67 0.60-1.30 MG/DL Estimat Glomerular Filtration Rate 121 BUN/Creatinine Ratio 10 Glucose Level 85 70-105 MG/DL Calcium Level 8.7 8.5-10.1 MG/DL Corrected Calcium 8.7 8.5-10.1 MG/DL Total Bilirubin 0.3 0.1-1.0 MG/DL Aspartate Amino Transf (AST/SGOT) 17 5-34 U/L Alanine Aminotransferase (ALT/SGPT) 10 0-55 U/L Alkaline Phosphatase 62 40-136 U/L Total Protein 8.2 6.4-8.2 GM/DL Albumin 4.0 3.2-4.5 GM/DL Lipase 24 8-78 U/L Serum Test, Qualitative NEGATIVE NEGATIVE Urine Color YELLOW Urine Clarity CLEAR Urine pH 6.0 5-9 Urine Specific [place] >=1.030 1.016-1.022 Urine Protein NEGATIVE NEGATIVE Urine Glucose (UA) NEGATIVE NEGATIVE Urine Ketones NEGATIVE NEGATIVE Urine Nitrite NEGATIVE NEGATIVE Urine Bilirubin NEGATIVE NEGATIVE Urine Urobilinogen 0.2 < = 1.0 MG/DL Urine Leukocyte Esterase NEGATIVE NEGATIVE Urine RBC (Auto) NEGATIVE NEGATIVE Urine RBC NONE /HPF Urine WBC 2-5 /HPF Urine Crystals PRESENT H /LPF Urine Amorphous Sediment FEW DAYAMI URATES H /LPF Urine Bacteria TRACE /HPF Urine Casts NONE /LPF Urine Mucus SMALL H /LPF Urine Culture Indicated NO My Orders Orders - KIM AYALA APRN Cbc With Automated Diff (05/11/21 15:53) Comprehensive Metabolic Panel (05/11/21 15:53) Hcg,Qualitative Serum (05/11/21 15:53) Us Gallbladder 90[address] (05/11/21 15:53) Lipase (05/11/21 15:53) Hyoscyamine Sl Tablet (Levsin Sl Tablet) (05/11/21 16:00) Antacid Suspension (Mylanta Suspension (05/11/21 16:00) Lidocaine 2% Viscous 15 Ml (Xylocaine Vi (05/11/21 16:00) Ua Culture If Indicated (05/11/21 16:00) Medications Given in ED Current Medications Medications Dose Ordered Sig/Giana Route Start Time Stop Time Status Last Admin Dose Admin Al Hydrox/Mg Hydrox/Simethicone 30 ml ONCE ONCE PO 05/11/21 16:00 05/11/21 16:01 DC 05/11/21 16:33 30 ML Hyoscyamine Sulfate 0.25 mg ONCE ONCE PO 05/11/21 16:00 05/11/21 16:01 DC 05/11/21 16:32 0.25 MG Lidocaine HCl 15 ml ONCE ONCE PO 05/11/21 16:00 05/11/21 16:01 DC 05/11/21 16:33 15 ML Vital Signs/I&O 05/11/21 15:55 Temp 36.4 Pulse 98 Resp 18 B/P (MAP) 120/78 (92) Pulse Ox 98 O2 Delivery Room Air Capillary Refill : Departure Impression Primary Impression: Abdominal cramping Additional Impression: Chronic anemia Disposition: HOME, SELF-CARE Condition: Stable Departure-Patient Inst. Decision time for Depature: 16:39 Referrals: [facility] (PCP/Family) Primary Care Physician Patient Instructions: No Instuctions Given Add. Discharge Instructions: 1. Medication as directed 2. Return to ER for any concerns 3. Follow-up with your doctor next week All discharge instructions reviewed with patient and/or family. Voiced unders tanding. Scripts Hyoscyamine Sulfate (Levsin-Sl) 0.125 Mg Tab.subl 0.125 MG SL Q4H, #10 TAB 0 Refills Prov: KIM AYALA APRN 05/11/21 KIM AYALA APRN May 11, 2021 15:58
[2021-05-11] MEDS ORDERED: ANTACID SUSP 30 ML UDC (MYLANTA) PO ONE (16:00)
[2021-05-11] MEDS ORDERED: HYOSCYAMINE 0.125 MG (LEVSIN) TAB PO ONE (16:00)
[2021-05-11] MEDS ORDERED: LIDOCAINE 2% VISCOUS 15 ML UDC PO ONE (16:00)
[2021-05-11 16:04] LABS: BASOPHILS # (AUTO) 0.1 10^3/uL (0.0-0.1); BASOPHILS % (AUTO) 1 % (0-10); EOSINOPHILS # (AUTO) 0.3 10^3/uL (0.0-0.3); EOSINOPHILS % (AUTO) 2 % (0-10); HEMATOCRIT 28 % (35-52); HEMOGLOBIN 7.6 g/dL (11.5-16.0); LYMPHOCYTES # (AUTO) 2.8 10^3/uL (1.0-4.0); LYMPHOCYTES % (AUTO) 24 % (12-44); MEAN CORPUSCULAR HEMOGLOBIN 16 pg (25-34); MEAN CORPUSCULAR HGB CONC 27 g/dL (32-36); MEAN CORPUSCULAR VOLUME 58 fL (80-99); MEAN PLATELET VOLUME 10.5 fL (9.0-12.2); MONOCYTES # (AUTO) 0.7 10^3/uL (0.0-1.0); MONOCYTES % (AUTO) 6 % (0-12); NEUTROPHILS % (AUTO) 68 % (42-75); PLATELET COUNT 571 10^3/uL (130-400); WHITE BLOOD COUNT 11.8 10^3/uL (4.3-11.0)
[2021-05-11 16:05] LABS: BILIRUBIN,URINE NEGATIVE (NEGATIVE); CLARITY,URINE CLEAR; COLOR,URINE YELLOW; GLUCOSE, URINE (UA) NEGATIVE (NEGATIVE); KETONES,URINE NEGATIVE (NEGATIVE); LEUKOCYTE ESTERASE ,URINE NEGATIVE (NEGATIVE); NITRITE,URINE NEGATIVE (NEGATIVE); PROTEIN,URINE NEGATIVE (NEGATIVE)
[2021-05-11 16:11] LABS: POTASSIUM 3.5 MMOL/L (3.6-5.0)
[2021-05-11 16:12] LABS: CALCIUM 8.7 MG/DL (8.5-10.1)
[2021-05-11 16:13] LABS: TOTAL PROTEIN 8.2 GM/DL (6.4-8.2)
[2021-05-11 16:15] LABS: BILIRUBIN,TOTAL 0.3 MG/DL (0.1-1.0)
[2021-05-11 16:17] LABS: CREATININE SERUM 0.67 MG/DL (0.60-1.30)
[2021-05-11 16:22] LABS: AMORPHOUS SEDIMENT,UR FEW AMOR URATES /LPF; BACTERIA,URINE TRACE /HPF
[2021-05-11] MEDS ORDERED: HYOS0.1283 SL (16:40)
[2021-05-11 17:02] VITALS: BP 137/88
--- NOTE | 2021-05-11 17:17 | Diagnostic Imaging Report ---
PROCEDURE: US Gallbladder. TECHNIQUE: Multiple real-time grayscale images were obtained over the right upper quadrant in various projections. INDICATION: Epigastric pain EXAMINATION: Ultrasound gallbladder 05/11/2021 FINDINGS: Liver is unremarkable. No masses or lesions appreciated. There is no intrahepatic biliary dilatation. 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 The pancreas is partially obscured by overlying bowel gas. Visualized aspects unremarkable. Gallbladder wall does not appear thickened. There is an echogenic focus within the gallbladder measuring 0.7 cm in greatest dimension. This is most likely a polyp. No pericholecystic fluid is seen. Visualized aspects of the aorta and IVC unremarkable with portions obscured by overlying bowel gas. Right kidney 11.7 cm in length with no hydronephrosis. There is no ascites. IMPRESSION: 1. Likely polyp within the gallbladder with remaining visualized structures unremarkable. Dictated by: Dictated on workstation # [id number]
== END 2021-05-11 17:02 | disposition home or self-care (01) ==
LOC: EDUNIT# 15:45 → ER 15:47
DX: R10.13 Epigastric pain (principal); D64.9 Anemia, unspecified; J45.909 Unspecified asthma, uncomplicated; I10 Essential (primary) hypertension; K21.9 Gastro-esophageal reflux disease without esophagitis; E66.9 Obesity, unspecified; Z68.45 Body mass index [BMI] 70 or greater, adult; Z79.899 Other long term (current) drug therapy
CPT/HCPCS: 36415; 76705; 80053; 81000; 83690; 84703; 85025

== ENCOUNTER 2021-07-08 17:56 | Emergency (ER) | payer MEDICAID ==
[~2021-07-08] VITALS: Ht 152 cm; Wt 106.8 kg
[~2021-07-08 17:56] MED LIST changes: +HYOS0.1283 SL
[2021-07-08] MEDS ORDERED: KETOROLAC 30 MG/ML VIAL IVP ONE (18:15)
--- NOTE | 2021-07-08 18:16 | ED Abdominal Pain ---
General Chief Complaint: Abdominal/GI Problems Stated Complaint: STOMACH PAIN Nursing Triage Note: two weeks having pain intermittantly, along with diarrhea that comes and goes. denies fever or any other symptomsdescribs frequency with urination. Source of Information: Patient Exam Limitations: No Limitations History of Present Illness Date Seen by Provider: Jul 08, 2021 Time Seen by Provider: 18:14 Initial Comments Patient is a 36-year-old female presents ED with mid abdominal pain. Pain started 2 weeks ago. Initially started when she was lying down. Pain is described as sharp with radiation bilateral abdomen. She reports nausea without vomiting or diarrhea. Pain with urination with frequent urination. History of umbilical hernia repair in the past. Denies any chest pain, cough, shortness of breath, headache, dizziness. Has been taken Tylenol ibuprofen without much improvement. Allergies and Home Medications Allergies Coded Allergies: No Known Drug Allergies (Unverified , 11/28/20) Patient Home Medication List Home Medication List Reviewed: Yes Albuterol (Proair Hfa) 8.5 Gm Hfa.aer.ad, (Reported) Entered as Reported by: BOB GREY on 09/23/172250 Cephalexin (Cephalexin) 500 Mg Tablet, 500 MG PO TID Prescribed by: BRITNI TELLO on 07/08/211956 Doxycycline Hyclate (Doxycycline Hyclate) 100 Mg Tablet, 100 MG PO BID Prescribed by: SELENE ESCALONA on 02/04/212107 Ferrous Sulfate (Iron) 325 Mg Tablet, 325 MG PO DAILY Prescribed by: BRITTA PRAKASH on 02/05/20 1650 Hyoscyamine Sulfate (Levsin-Sl) 0.125 Mg Tab.subl, 0.125 MG SL Q4H Prescribed by: KIM AYALA on 05/11/21 1640 Omeprazole (Omeprazole) 20 Mg Capsule., 20 MG PO BID Prescribed by: JOSÉ MIGUEL SIERRA on 04/13/21 1919 Pantoprazole Sodium (Protonix) 40 Mg Tablet., 40 MG PO DAILY Prescribed by: YOHANNES RANDOLPH on 11/28/20 1100 Review of Systems Review of Systems Constitutional: No chills, No diaphoresis, No dizziness, No fever, No malaise EENTM: No Blurred Vision, No Double Vision, No Eye Tearing, No Ear Drainage, No Ear Pain, No Mouth Pain Respiratory: Denies Cough, Denies SOA With Exertion, Denies SOA at Rest Cardiovascular: Denies Chest Pain, Denies Edema, Denies Irregular Heart Rate Gastrointestinal: Abdominal Pain; Denies Diarrhea; Nausea; Denies Vomiting Genitourinary: Burning, Frequency Musculoskeletal: No back pain, No joint pain Skin: No see HPI, No change in color, No change in hair/nails Psychiatric/Neurological: Denies See HPI, Denies Anxiety All Other Systems Reviewed Negative Unless Noted: Yes Past Woxrkrj-Pcemgl-Edrevd Hx Immunizations Up To Date Tetanus Booster (TDap): Less than 5yrs First/Initial COVID19 Vaccinat: 11/25 Second COVID19 Vaccination Anoop: 01/23 Seasonal Allergies Seasonal Allergies: No Past Medical History Surgeries: Yes (Umbilical Hernia Repair) Abdominal, Section, Tubal Ligation Respiratory: Yes Asthma Cardiac: Yes Hypertension 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 pylori) Gastroesophageal Reflux, Ulcer Musculoskeletal: No Endocrine: Yes (OBESE) HEENT: No Cancer: No Psychosocial: No Integumentary: No Blood Disorders: Yes (ANEMIA--HGB IN 7 TO 8 RANGE CHRONICALLY) Adverse Reaction/Blood Tranf: No Family Medical History No Pertinent Family Hx Physical Exam Vital Signs Vital Signs - First Documented 07/08/21 18:06 Temp 36.4 Pulse 95 Resp 18 B/P (MAP) 159/82 (107) Pulse Ox 100 Capillary Refill : Less Than 3 Seconds Height/Weight/BMI Height: 4'9.00" Weight: 205lbs. oz. 92.827110oi; 46.00 BMI Method:Stated General Appearance: WD/WN, no apparent distress HEENT: PERRL/EOMI, normal ENT inspection, TMs normal Neck: non-tender, full range of motion, supple Respiratory: chest non-tender, lungs clear, normal breath sounds, no respiratory distress, no accessory muscle use Cardiovascular: regular rate, rhythm, no edema, no gallop, no JVD Gastrointestinal: normal bowel sounds, soft, no organomegaly, tenderness (Mid abdominal tenderness on palpation. Normal bowel sounds throughout) Extremities: normal range of motion, non-tender, normal inspection, no pedal edema Back: normal inspection, no CVA tenderness Progress/Results/Core Measures Results/Orders Lab Results Laboratory Tests Test 07/08/21 18:15 07/08/21 18:26 Range/Units White Blood Count 11.8 H 4.3-11.0 10^3/uL Red Blood Count 4.70 3.80-5.11 10^6/uL Hemoglobin 7.6 L 11.5-16.0 g/dL Hematocrit 28 L 35-52 % Mean Corpuscular Volume 59 L 80-99 fL Mean Corpuscular Hemoglobin 16 L 25-34 pg Mean Corpuscular Hemoglobin Concent 27 L 32-36 g/dL Red Cell Distribution Width 19.9 H 10.0-14.5 % Platelet Count 587 H 130-400 10^3/uL Mean Platelet Volume 10.1 9.0-12.2 fL Immature Granulocyte % (Auto) 0 % Neutrophils (%) (Auto) 67 42-75 % Lymphocytes (%) (Auto) 23 12-44 % Monocytes (%) (Auto) 7 0-12 % Eosinophils (%) (Auto) 2 0-10 % Basophils (%) (Auto) 1 0-10 % Neutrophils # (Auto) 8.0 H 1.8-7.8 10^3/uL Lymphocytes # (Auto) 2.7 1.0-4.0 10^3/uL Monocytes # (Auto) 0.8 0.0-1.0 10^3/uL Eosinophils # (Auto) 0.3 0.0-0.3 10^3/uL Basophils # (Auto) 0.1 0.0-0.1 10^3/uL Immature Granulocyte # (Auto) 0.1 0.0-0.1 10^3/uL Sodium Level 141 135-145 MMOL/L Potassium Level 3.1 L 3.6-5.0 MMOL/L Chloride Level 106 98-107 MMOL/L Carbon Dioxide Level 23 21-32 MMOL/L Anion Gap 12 5-14 MMOL/L Blood Urea Nitrogen 8 7-18 MG/DL Creatinine 0.74 0.60-1.30 MG/DL Estimat Glomerular Filtration Rate 108 BUN/Creatinine Ratio 11 Glucose Level 97 70-105 MG/DL Calcium Level 8.7 8.5-10.1 MG/DL Corrected Calcium 8.7 8.5-10.1 MG/DL Total Bilirubin 0.3 0.1-1.0 MG/DL Aspartate Amino Transf (AST/SGOT) 17 5-34 U/L Alanine Aminotransferase (ALT/SGPT) 10 0-55 U/L Alkaline Phosphatase 74 40-136 U/L Total Protein 8.4 H 6.4-8.2 GM/DL Albumin 4.0 3.2-4.5 GM/DL Lipase 27 8-78 U/L Urine Color YELLOW Urine Clarity CLEAR Urine pH 6.0 5-9 Urine Specific [place] >=1.030 1.016-1.022 Urine Protein TRACE H NEGATIVE Urine Glucose (UA) NEGATIVE NEGATIVE Urine Ketones NEGATIVE NEGATIVE Urine Nitrite NEGATIVE NEGATIVE Urine Bilirubin NEGATIVE NEGATIVE Urine Urobilinogen 0.2 < = 1.0 MG/DL Urine Leukocyte Esterase TRACE H NEGATIVE Urine RBC (Auto) NEGATIVE NEGATIVE Urine RBC NONE /HPF Urine WBC 5-10 H /HPF Urine Crystals PRESENT H /LPF Urine Amorphous Sediment RARE DAYAMI URATES H /LPF Urine Bacteria TRACE /HPF Urine Casts NONE /LPF Urine Mucus MODERATE H /LPF Urine Culture Indicated YES Urine Test NEGATIVE NEGATIVE My Orders Orders - VIVIANA CABA Cbc With Automated Diff (07/08/21 18:12) Comprehensive Metabolic Panel (07/08/21 18:12) Lipase (07/08/21 18:12) Ua Culture If Indicated (07/08/21 18:12) Hcg,Qualitative Urine (07/08/21 18:12) Ketorolac Injection (Toradol Injection) (07/08/21 18:15) Urine Culture (07/08/21 18:26) Abdomen/Kub 1[place] (07/08/21 19:04) Potassium Chloride (Tablet) (K Dur Table (07/08/21 20:00) Medications Given in ED Vital Signs/I&O 07/08/21 07/08/21 18:06 20:10 Temp 36.4 36.0 Pulse 95 85 Resp 18 16 B/P (MAP) 159/82 (107) 99/65 Pulse Ox 100 100 Blood Pressure Mean: 107 Departure Communication (Admissions) Patient with mid abdominal pain over the past 2 weeks. She reports intermittent vomiting. This pain occurs when she is laying on her abdomen. Patient with white blood count 11.8. This appears to be similar to her previous visits. Chronic anemia. Currently on iron supplements. Potassium 3.1. Was given oral potassium here. Was given a liter fluid. Pain control. Dominic x-ray negative for acute abnormality. No palpable mass. Urinalysis concerning for UTI. Will discharge with Keflex. She does reports frequent urination. No peritoneal signs. No acute abdomen. Secondary to the length of pain likely surgical with no fever and no significant changes in her lab work. CT scan was held at this time. Recommend trial of Keflex. Discussed anti-inflammatories for the pain. She gets relief when she lays on her side. Discussed abdominal wall pain. No strong evidence of hernia on exam. Patient playing on her phone and shows no signs acute distress. Outpatient follow-up. Return precautions were discussed Impression Primary Impression: Abdominal pain Disposition: HOME, SELF-CARE Condition: Stable Departure-Patient Inst. Decision time for Depature: 19:56 Referrals: [facility] [place] (PCP/Family) Primary Care Physician Patient Instructions: Abdominal Pain, Adult ED Scripts Cephalexin (Cephalexin) 500 Mg Tablet 500 MG PO TID for 7 Days, #21 TAB Prov: VIVIANA CABA 07/08/21 VIVIANA CABA Jul 08, 2021 18:16
[2021-07-08 18:21] LABS: BASOPHILS # (AUTO) 0.1 10^3/uL (0.0-0.1); BASOPHILS % (AUTO) 1 % (0-10); EOSINOPHILS # (AUTO) 0.3 10^3/uL (0.0-0.3); EOSINOPHILS % (AUTO) 2 % (0-10); HEMATOCRIT 28 % (35-52); HEMOGLOBIN 7.6 g/dL (11.5-16.0); LYMPHOCYTES # (AUTO) 2.7 10^3/uL (1.0-4.0); LYMPHOCYTES % (AUTO) 23 % (12-44); MEAN CORPUSCULAR HEMOGLOBIN 16 pg (25-34); MEAN CORPUSCULAR HGB CONC 27 g/dL (32-36); MEAN CORPUSCULAR VOLUME 59 fL (80-99); MEAN PLATELET VOLUME 10.1 fL (9.0-12.2); MONOCYTES # (AUTO) 0.8 10^3/uL (0.0-1.0); MONOCYTES % (AUTO) 7 % (0-12); NEUTROPHILS % (AUTO) 67 % (42-75); PLATELET COUNT 587 10^3/uL (130-400); WHITE BLOOD COUNT 11.8 10^3/uL (4.3-11.0)
[2021-07-08 18:32] LABS: BILIRUBIN,URINE NEGATIVE (NEGATIVE); CLARITY,URINE CLEAR; COLOR,URINE YELLOW; GLUCOSE, URINE (UA) NEGATIVE (NEGATIVE); KETONES,URINE NEGATIVE (NEGATIVE); LEUKOCYTE ESTERASE ,URINE TRACE (NEGATIVE); NITRITE,URINE NEGATIVE (NEGATIVE); PROTEIN,URINE TRACE (NEGATIVE)
[2021-07-08 18:33] LABS: POTASSIUM 3.1 MMOL/L (3.6-5.0)
[2021-07-08 18:34] LABS: CALCIUM 8.7 MG/DL (8.5-10.1)
[2021-07-08 18:35] LABS: TOTAL PROTEIN 8.4 GM/DL (6.4-8.2)
[2021-07-08 18:37] LABS: BILIRUBIN,TOTAL 0.3 MG/DL (0.1-1.0)
[2021-07-08 18:39] LABS: CREATININE SERUM 0.74 MG/DL (0.60-1.30)
[2021-07-08 18:39] LABS: AMORPHOUS SEDIMENT,UR RARE AMOR URATES /LPF; BACTERIA,URINE TRACE /HPF
--- NOTE | 2021-07-08 19:43 | Diagnostic Imaging Report ---
CLINICAL INDICATIONS: Patient with mid to upper abdominal pain. EXAM: X-ray of the abdomen with multiple supine views. COMPARISON: CT scan abdomen and pelvis with contrast dated 01/16/2020. FINDINGS: There is a nonobstructed bowel gas pattern. There is no evidence of abdominal free air. There is a small amount of stool throughout the colon. There are no focal calcifications overlying the expected regions/ pathways of both kidneys, ureters, and bladder regions. The visualized bones and extra abdominal soft tissues are unremarkable. IMPRESSION: There is no radiographic evidence for acute abdominal/ pelvic process or urinary tract stones. Dictated by: Dictated on workstation # [id number]
[2021-07-08] MEDS ORDERED: CEPH500T PO (19:57)
[2021-07-08] MEDS ORDERED: KCL 20 MEQ TAB (K-DUR) PO ONE (20:00)
[2021-07-08 20:10] VITALS: BP 99/65
== END 2021-07-08 20:14 | disposition home or self-care (01) ==
LOC: EDUNIT# 17:56 → ER 17:58
DX: R10.30 Lower abdominal pain, unspecified (principal); J45.909 Unspecified asthma, uncomplicated; I10 Essential (primary) hypertension; E66.9 Obesity, unspecified; K21.9 Gastro-esophageal reflux disease without esophagitis; Z68.42 Body mass index [BMI] 45.0-49.9, adult; Z79.899 Other long term (current) drug therapy
CPT/HCPCS: 36415; 74018; 80053; 81000; 83690; 84703; 85025; 87088

== ENCOUNTER 2021-07-14 18:45 | Emergency (ER) | payer MEDICAID ==
[~2021-07-14] VITALS: Ht 150 cm; Wt 95.2 kg
[2021-07-14 21:33] VITALS: BP 142/92
--- NOTE | 2021-07-14 21:42 | ED Cough/URI ---
General Chief Complaint: Cough/Cold/Flu Symptoms Stated Complaint: HEADACHE/COUGH/CONGESTION/FEVER/BODYACHES Nursing Triage Note: Pt arrives w/ c/o sore throat, fevers and nausea. Pt states that sx started about 3 days ago. Source: patient History of Present Illness Date Seen by Provider: Jul 14, 2021 Time Seen by Provider: 21:35 Initial Comments PT ARRIVES VIA POV , BRINGING 4 CHILDREN WITH HER STATES SHE STARTED HAVING SYMPTOMS 3 DAYS AGO C/O FEVER UP TO 100.2 C/O SORE THROAT C/O NAUSEA, VOMITED X 3 TODAY. NO DIARRHEA. NO ABDOMINAL PAIN. PT IS ABLE TO DRINK FLUIDS AND IS VOIDING A NORMAL AMOUNT. NO SHORTNESS OF BREATH SLIGHT COUGH SLIGHT RUNNY NOSE ABNORMAL TASTE AND SMELL + HEADACHE + BODY ACHES + FATIGUE TOOK TYLENOL X 1 AND MOTRIN X 1 EARLIER TODAY, NO RELIEF HAS HAD COVID-19 VACCINE, BUT NO BOOSTER VACCINE NO KNOWN SICK CONTACTS. PCP: JESSICA-PALOMA Allergies and Home Medications Allergies Coded Allergies: No Known Drug Allergies (Unverified , 11/28/20) Patient Home Medication List Home Medication List Reviewed: Yes Albuterol (Proair Hfa) 8.5 Gm Hfa.aer.ad, (Reported) Entered as Reported by: BOB GREY on 09/23/172250 Cephalexin (Cephalexin) 500 Mg Tablet, 500 MG PO TID Prescribed by: BRITNI TELLO on 07/08/211956 Doxycycline Hyclate (Doxycycline Hyclate) 100 Mg Tablet, 100 MG PO BID Prescribed by: SELENE ESCALONA on 02/04/212107 Ferrous Sulfate (Iron) 325 Mg Tablet, 325 MG PO DAILY Prescribed by: BRITTA PRAKASH on 02/05/20 165 Hyoscyamine Sulfate (Levsin-Sl) 0.125 Mg Tab.subl, 0.125 MG SL Q4H Prescribed by: KIM AYALA on 05/11/21 1640 Omeprazole (Omeprazole) 20 Mg Capsule., 20 MG PO BID Prescribed by: JOSÉ MIGUEL SIERRA on 04/13/21 191 Ondansetron (Ondansetron Odt) 8 Mg Tab.rapdis, 8 MG PO Q6H Prescribed by: EMETERIO GARCIA on 07/14/21 223 Pantoprazole Sodium (Protonix) 40 Mg Tablet.dr, 40 MG PO DAILY Prescribed by: YOHANNES RANDOLPH on 11/28/20 1100 Review of Systems Review of Systems Constitutional: see HPI, fever EENTM: see HPI, nose congestion, throat pain Respiratory: cough Cardiovascular: no symptoms reported Gastrointestinal: see HPI; No abdominal pain, No diarrhea; loss of appetite, nausea, vomiting Genitourinary: no symptoms reported Musculoskeletal: see HPI (BODY ACHES) Skin: no symptoms reported Psychiatric/Neurological: See HPI, Headache Hematologic/Lymphatic: No Symptoms Reported Immunological/Allergic: no symptoms reported Past Uxmwaie-Xvvnpw-Dwiqft Hx Immunizations Up To Date Tetanus Booster (TDap): Less than 5yrs First/Initial COVID19 Vaccinat: 11/25 Second COVID19 Vaccination Anoop: 01/23 Seasonal Allergies Seasonal Allergies: No Past Medical History Surgery/Hospitalization HX: HX OF ASTHMA TUBAL LIGATION / ON DEPO PROVERA FOR HEAVY PERIODS Surgeries: Yes (Umbilical Hernia Repair) Abdominal, Section, Tubal Ligation Respiratory: Yes Asthma Cardiac: Yes Hypertension 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 pylori) Gastroesophageal Reflux, Ulcer Musculoskeletal: No Endocrine: Yes (OBESE) HEENT: No Cancer: No Psychosocial: No Integumentary: No Blood Disorders: Yes (ANEMIA--HGB IN 7 TO 8 RANGE CHRONICALLY) Adverse Reaction/Blood Tranf: No Family Medical History No Pertinent Family Hx Physical Exam Vital Signs - First Documented 07/14/21 07/14/21 21:33 22:22 Temp 37.2 Pulse 109 Resp 20 B/P (MAP) 142/92 (109) Capillary Refill : Less Than 3 Seconds Height: 4'9.00" Weight: 205lbs. oz. 92.672417tc; 42.00 BMI Method:Stated General Appearance: WD/WN, no apparent distress, obese, other (DOES NOT APPEAR ILL OR TO BE IN ANY DISCOMFORT OR DISTRESS. NO COUGH, NO DYSPNEA DURING EXAM. ) HEENT: PERRL/EOMI, normal ENT inspection, TMs normal, pharynx normal Neck: normal inspection Respiratory: normal breath sounds, no respiratory distress, no accessory muscle use Cardiovascular: regular rate, rhythm, no edema, no JVD, no murmur Gastrointestinal: non tender, soft Extremities: normal inspection, no pedal edema, normal capillary refill Neurologic/Psychiatric: no motor/sensory deficits, alert, normal mood/affect, oriented x 3 Skin: normal color (PT IS BLACK), warm/dry Progress/Results/Core Measures Suspected Sepsis SIRS Temperature: Pulse: 109 Respiratory Rate: 20 Blood Pressure 142 /92 Mean: 109 Results/Orders Lab Results Laboratory Tests Test 07/14/21 21:45 Range/Units Influenza Type A (RT-PCR) Not Detected Not Detecte Influenza Type B (RT-PCR) Not Detected Not Detecte SARS-CoV-2 RNA (RT-PCR) Detected H Not Detecte Group A Streptococcus Screen NEGATIVE NEGATIVE My Orders Orders - EMETERIO GARCIA DO Covid 19 Inhouse Test (07/14/21 21:39) Influenza A And B By Pcr (07/14/21 21:39) Isolation Central Supply Req (07/14/21 21:39) Rapid Strep A Screen (07/14/21 21:42) Rx-Ondansetron Po (Rx-Zofran Po) (07/14/21 22:35) Vital Signs/I&O 07/14/21 07/14/21 21:33 22:22 Temp 37.2 Pulse 109 Resp 20 B/P (MAP) 142/92 (109) Capillary Refill : Less Than 3 Seconds Blood Pressure Mean: 109 Progress Note : Progress Note PLACED IN ISOLATION ROOM PPE WORN AT ALL TIMES COVID, FLU AND STREP TESTS DONE NO MONOCLONAL ANTIBODIES CURRENTLY AVAILABLE ANTICIPATED COURSE DISCUSSED WITH PATIENT, AND NEED FOR QUARANTINE WITH STRICT RETURN PRECAUTIONS NO COUGH NO DYSPNEA NO HYPOXIA NO FEVER DURING ER STAY Departure Impression Primary Impression: COVID-19 virus infection Disposition: 01 HOME, SELF-CARE Condition: Stable Departure-Patient Inst. Decision time for Depature: 22:33 Referrals: [facility] ([facility]P/Family) Primary Care Physician Patient Instructions: COVID-19 (DC), Preventing the Spread of an Infectious Disease Add. Discharge Instructions: LOTS OF CLEAR LIQUIDS TYLENOL 1 GRAM PLUS MOTRIN 800 MG NEEDED FOR PAIN OR FEVER OVER THE COUNTER MUCINEX DM FOR COUGH AND CONGESTION FOLLOW UP WITH [facility] IN 4-5 DAYS IF NO BETTER, RETURN TO ER IF WORSE QUARANTINE ALL HOUSEHOLD MEMBERS FOR 10 DAYS. All discharge instructions reviewed with patient and/or family. Voiced understanding. Scripts Ondansetron (Ondansetron Odt) 8 Mg Tab.rapdis 8 MG PO Q6H, #10 TAB Prov: EMETERIO GARCIA DO 07/14/21 EMETERIO GARCIA DO Jul 14, 2021 21:42
[2021-07-14] MEDS ORDERED: RX-ONDANSETRON 4 MG ODT (ZOFRAN) PPK #4 PO STA (22:35)
[2021-07-14] MEDS ORDERED: ONDA8TAB13 PO (22:35)
== END 2021-07-14 23:33 | disposition home or self-care (01) ==
LOC: EDUNIT# 18:45 → ER 18:47
DX: U07.1 COVID-19 (principal); I10 Essential (primary) hypertension; K21.9 Gastro-esophageal reflux disease without esophagitis; E66.9 Obesity, unspecified; Z68.41 Body mass index [BMI] 40.0-44.9, adult; Z79.899 Other long term (current) drug therapy
CPT/HCPCS: 87430; 87636; 99283

== ENCOUNTER 2021-07-23 16:07 | Emergency (ER) | payer MEDICAID ==
[~2021-07-23 16:07] MED LIST changes: +ONDA8TAB13 PO
--- NOTE | 2021-07-23 18:17 | ED General ---
General Chief Complaint: Cough/Cold/Flu Symptoms Stated Complaint: COUGH, BACK PAIN, COVID POSITIVE Nursing Triage Note: PT AMB TO ER WITH C/O COUGH SINCE TESTING POS FOR COVID ON 07/14. PT SAID SHE HAS TRIED MULTIPLE OTC COUGH MEDICATIONS WITHOUT RELIEF Source of Information: Patient Exam Limitations: No Limitations History of Present Illness Date Seen by Provider: Jul 23, 2021 Time Seen by Provider: 18:17 Initial Comments To ER with reports of an uncontrollable cough. She was diagnosed with COVID here on 07/14/2021. She denies any fevers chills or shortness of breath just the bothersome cough that is now causing pain throughout her chest. Pain is only present when she coughs. She is vaccinated against COVID. Timing/Duration: 1 Week Severity: Moderate Associated Systoms: Cough Allergies and Home Medications Allergies Coded Allergies: No Known Drug Allergies (Unverified , 11/28/20) Patient Home Medication List Home Medication List Reviewed: Yes Albuterol (Proair Hfa) 8.5 Gm Hfa.aer.ad, (Reported) Entered as Reported by: BOB GREY on 09/23/172250 Cephalexin (Cephalexin) 500 Mg Tablet, 500 MG PO TID Prescribed by: BRITNI TELLO on 07/08/211956 Doxycycline Hyclate (Doxycycline Hyclate) 100 Mg Tablet, 100 MG PO BID Prescribed by: SELENE ESCALONA on 02/04/212107 Ferrous Sulfate (Iron) 325 Mg Tablet, 325 MG PO DAILY Prescribed by: BRITTA PRAKASH on 02/05/20 1650 Hyoscyamine Sulfate (Levsin-Sl) 0.125 Mg Tab.subl, 0.125 MG SL Q4H Prescribed by: KIM AYALA on 05/11/21 1640 Omeprazole (Omeprazole) 20 Mg Capsule.dr, 20 MG PO BID Prescribed by: JOSÉ MIGUEL SIERRA on 04/13/21 191 Ondansetron (Ondansetron Odt) 8 Mg Tab.rapdis, 8 MG PO Q6H Prescribed by: EMETERIO GARCIA on 07/14/21 223 Pantoprazole Sodium (Protonix) 40 Mg Tablet.dr, 40 MG PO DAILY Prescribed by: YOHANNES RANDOLPH on 11/28/20 1100 Review of Systems Review of Systems Constitutional: see HPI EENTM: see HPI Respiratory: see HPI, cough Genitourinary: no symptoms reported Musculoskeletal: no symptoms reported Skin: no symptoms reported Psychiatric/Neurological: No Symptoms Reported Past Ctgxnaq-Bexiju-Sgqznd Hx Patient Social History Tobacco Use?: Yes Tobacco type used: Cigarettes Smoking Status: Current Everyday Smoker Substance use?: No Pt feels they are or have been: No Immunizations Up To Date Tetanus Booster (TDap): Less than 5yrs Influenza Vaccine Up-to-Date: No; Not Current First/Initial COVID19 Vaccinat: 09-21 Second COVID19 Vaccination Anoop: 01-21 Seasonal Allergies Seasonal Allergies: No Past Medical History Surgery/Hospitalization HX: HX OF ASTHMA TUBAL LIGATION / ON DEPO PROVERA FOR HEAVY PERIODS Surgeries: Yes (Umbilical Hernia Repair) Abdominal, Section, Tubal Ligation Respiratory: Yes Asthma Cardiac: Yes Hypertension 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 pylori) Gastroesophageal Reflux, Ulcer Musculoskeletal: No Endocrine: Yes (OBESE) HEENT: No Cancer: No Psychosocial: No Integumentary: No Blood Disorders: Yes (ANEMIA--HGB IN 7 TO 8 RANGE CHRONICALLY) Adverse Reaction/Blood Tranf: No Family Medical History No Pertinent Family Hx Physical Exam Vital Signs Vital Signs - First Documented 07/23/21 17:43 Temp 36.5 Pulse 98 Resp 20 B/P (MAP) 178/87 (117) Capillary Refill : Height, Weight, BMI Height: 4'9.00" Weight: 205lbs. oz. 92.024804wl; 42.00 BMI Method:Stated General Appearance: No Apparent Distress, WD/WN, Other (Oxygen saturation 100% on room air heart rate is in the 80s. No respiratory distress.) Eyes: Bilateral Eye Normal Inspection, Bilateral Eye PERRL, Bilateral Eye EOMI Neck: Full Range of Motion, Normal Inspection Respiratory: No Accessory Muscle Use, No Respiratory Distress Cardiovascular: Regular Rate, Rhythm, Normal Peripheral Pulses Gastrointestinal: Normal Bowel Sounds, Non Tender, Soft Extremity: Normal Capillary Refill, Normal Inspection Neurologic/Psychiatric: Alert, Oriented x3 Skin: Normal Color, Warm/Dry Progress/Results/Core Measures Suspected Sepsis SIRS Temperature: Pulse: 98 Respiratory Rate: 20 Blood Pressure 178 /87 Mean: 117 Results/Orders My Orders Orders - KIM AYALA APRN Rx-Hydrocodone/Apap 5-325 Mg (Rx-Vicodin (07/23/21 18:30) Vital Signs/I&O 07/23/21 17:43 Temp 36.5 Pulse 98 Resp 20 B/P (MAP) 178/87 (117) Capillary Refill : Blood Pressure Mean: 117 Departure Impression Primary Impression: COVID-19 virus infection Disposition: 01 HOME, SELF-CARE Condition: Stable Departure-Patient Inst. Decision time for Depature: 18:17 [facility]errals: [facility] [place] Primary Care Physician Patient Instructions: Cough, Adult (DC) Scripts Hydrocodone/Acetaminophen (Hydrocodone-Acetamin 5-325 mg) 1 Each Tablet 1 TAB PO Q4H PRN for PAIN-MODERATE (5-7), #10 TAB Prov: KIM AYALA APRN 07/23/21 KIM AYALA APRN Jul 23, 2021 18:17
[2021-07-23] MEDS ORDERED: ACHD5005 PO (18:23)
[2021-07-23 18:34] VITALS: BP 170/81
== END 2021-07-23 18:36 | disposition home or self-care (01) ==
LOC: EDUNIT# 16:07 → ER 16:09
DX: U07.1 COVID-19 (principal); I10 Essential (primary) hypertension; J45.909 Unspecified asthma, uncomplicated; K21.9 Gastro-esophageal reflux disease without esophagitis; D64.9 Anemia, unspecified; E66.9 Obesity, unspecified; F17.210 Nicotine dependence, cigarettes, uncomplicated; Z79.899 Other long term (current) drug therapy
CPT/HCPCS: 99281

== ENCOUNTER 2021-09-09 17:11 | Emergency (ER) | payer MEDICAID ==
[~2021-09-09] VITALS: Ht 148 cm; Wt 95.0 kg
[~2021-09-09 17:11] MED LIST changes: +ACHD5005 PO
[2021-09-09 17:20] VITALS: BP 130/84
--- NOTE | 2021-09-09 17:40 | ED Cough/URI ---
General Chief Complaint: Cough/Cold/Flu Symptoms Stated Complaint: COUGH, BACK PAIN Nursing Triage Note: AMB TO ED REPORTS HAS COVID IN JUL HAD COUGH AND GAVE HER HYDROCODONE FOR HER COUGH WHICH IT MAKE IT BETTER. LAST WEEK COUGH STARTED BACK. HAS NOT HAD ANY FOLLOW UP FOR COUGHT. Source: patient History of Present Illness Date Seen by Provider: Sep 09, 2021 Time Seen by Provider: 17:35 Initial Comments PT ARRIVES VIA POV FROM HOME HAS HAD A COUGH SINCE SHE WAS DIAGNOSED WITH COVID-19 IN JULY ( NO HOSPITALIZATION OR TREATMENT, OTHER THAN HYDROCODONE FOR COUGH ) STATES HYDROCODONE MADE HER COUGH BETTER, BUT HAS RUN OUT AND NOW COUGH HAS BEEN WORSE FOR THE LAST WEEK NO FEVER NO PAIN WITH COUGHING NO SHORTNESS OF BREATH HAS NOT TAKEN ANYTHING ELSE FOR COUGH AT ANY TIME HAS NOT SOUGHT CARE UNTIL TODAY SYMPTOMS NO DIFFERENT TODAY IN ANY WAY. PT HAS HISTORY OF ASTHMA, BUT DOES NOT USE ANY INHALERS PT IS A NON-SMOKER PT HAS HAD MODERNA COVID-19 VACCINE X 2, BUT NO BOOSTER NO FLU SHOT PCP: [facility] Allergies and Home Medications Allergies Coded Allergies: No Known Drug Allergies (Unverified , 11/28/20) Patient Home Medication List Home Medication List Reviewed: Yes Albuterol (Proair Hfa) 8.5 Gm Hfa.aer.ad, (Reported) Entered as Reported by: BOB GREY on 09/23/172250 Benzonatate (Tessalon Perles) 100 Mg Capsule, 200 MG PO TID Prescribed by: EMETERIO GARCIA on 09/09/211749 Cephalexin (Cephalexin) 500 Mg Tablet, 500 MG PO TID Prescribed by: BRITNI TELLO on 07/08/211956 Doxycycline Hyclate (Doxycycline Hyclate) 100 Mg Tablet, 100 MG PO BID Prescribed by: SELENE ESCALONA on 02/04/212107 Ferrous Sulfate (Iron) 325 Mg Tablet, 325 MG PO DAILY Prescribed by: BRITTA PRAKASH on 02/05/201649 Guaifenesin/Dextromethorphan (Mucinex Dm ER 1,200-60 mg Tab) 1 Each Tbmp.12hr, 1 EACH PO BID Prescribed by: EMETERIO GARCIA on 09/09/211749 Hydrocodone/Acetaminophen (Hydrocodone-Acetamin 5-325 mg) 1 Each Tablet, 1 TAB P O Q4H PRN for PAIN-MODERATE (5-7) Prescribed by: KIM AYALA on 07/23/21 1824 Hyoscyamine Sulfate (Levsin-Sl) 0.125 Mg Tab.subl, 0.125 MG SL Q4H Prescribed by: KIM AYALA on 05/11/21 1640 Omeprazole (Omeprazole) 20 Mg Capsule.dr, 20 MG PO BID Prescribed by: JOSÉ MIGUEL SIERRA on 04/13/21 191 Ondansetron (Ondansetron Odt) 8 Mg Tab.rapdis, 8 MG PO Q6H Prescribed by: EMETERIO GARCIA on 07/14/21 223 Pantoprazole Sodium (Protonix) 40 Mg Tablet.dr, 40 MG PO DAILY Prescribed by: YOHANNES RANDOLPH on 11/28/20 1100 Review of Systems Review of Systems Constitutional: no symptoms reported EENTM: no symptoms reported Respiratory: see HPI, cough; No short of breath Cardiovascular: no symptoms reported Gastrointestinal: no symptoms reported Genitourinary: no symptoms reported Musculoskeletal: no symptoms reported Skin: no symptoms reported Psychiatric/Neurological: No Symptoms Reported Hematologic/Lymphatic: No Symptoms Reported Immunological/Allergic: no symptoms reported Past Cqzdivn-Qylzkm-Nohbih Hx Patient Social History Tobacco Use?: No Substance use?: No Alcohol Use?: No Immunizations Up To Date Tetanus Booster (TDap): Less than 5yrs First/Initial COVID19 Vaccinat: 09-21 Second COVID19 Vaccination Anoop: 01-21 Seasonal Allergies Seasonal Allergies: No Past Medical History Surgery/Hospitalization HX: HX OF ASTHMA TUBAL LIGATION / ON DEPO PROVERA FOR HEAVY PERIODS Surgeries: Yes (Umbilical Hernia Repair) Abdominal, Section, Tubal Ligation Respiratory: Yes (COVID-19 IN JULY 2021--NO TREATMENT) Asthma Cardiac: Yes Hypertension Neurological: No Reproductive Disorders: Yes Female Reproductive Disorders: Menstrual Problems 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 pylori) Gastroesophageal Reflux, Ulcer Musculoskeletal: No Endocrine: Yes (OBESE) HEENT: No Cancer: No Psychosocial: No Integumentary: No Blood Disorders: Yes (ANEMIA--HGB IN 7 TO 8 RANGE CHRONICALLY) Adverse Reaction/Blood Tranf: No Family Medical History No Pertinent Family Hx PAST SURGICAL HISTORY: -BILATERAL TUBAL LIGATION - -UMBILICAL HERNIA REPAIR -EGD/COLONOSCOPY 11/[address] RANDOLPH: POSTOPERATIVE DIAGNOSES: Reflux esophagitis stage II, small hiatal hernia 1.5 cm in size, moderate gastritis, poor colonic prep with hard stool throughout the colon, likely indicating constipation at this time, mild small ulcerative plaques of the cecum, which may indicate a mild intermittent colitis. Physical Exam Vital Signs - First Documented 09/09/21 17:20 Temp 36.4 Pulse 99 Resp 15 B/P (MAP) 130/84 (99) Pulse Ox 100 O2 Delivery Room Air Capillary Refill : Greater Than 3 Seconds Height: 4'9.00" Weight: 205lbs. oz. 92.427666hh; 43.00 BMI Method:Stated General Appearance: WD/WN, no apparent distress, obese, other (DOES NOT APPEAR ILL OR TO BE IN ANY DISCOMFORT OR DISTRESS) HEENT: normal ENT inspection Neck: normal inspection Respiratory: normal breath sounds, no respiratory distress, no accessory muscle use Cardiovascular: regular rate, rhythm, no murmur Gastrointestinal: soft Extremities: pedal edema (TRACE BILATERALLY) Neurologic/Psychiatric: no motor/sensory deficits, alert, normal mood/affect, oriented x 3 Skin: normal color (PT IS BLACK), warm/dry Progress/Results/Core Measures Suspected Sepsis SIRS Temperature: Pulse: 99 Respiratory Rate: 15 Blood Pressure 130 /84 Mean: 99 Results/Orders Lab Results Laboratory Tests Test 09/09/21 17:55 Range/Units Influenza Type A (RT-PCR) Not Detected Not Detecte Influenza Type B (RT-PCR) Not Detected Not Detecte My Orders Orders - EMETERIO GARCIA DO Chest Pa/Lat (2 View) (09/09/21 17:37) Influenza A And B By Pcr (09/09/21 17:37) Vital Signs/I&O 09/09/21 17:20 Temp 36.4 Pulse 99 Resp 15 B/P (MAP) 130/84 (99) Pulse Ox 100 O2 Delivery Room Air Capillary Refill : Greater Than 3 Seconds Blood Pressure Mean: 99 Progress Note : Progress Note NO COUGH NO DYSPNEA NO HYPOXIA NO FEVER Diagnostic Imaging Comments CXR--PER RADIOLOGIST REPORT AT 1758 FINDINGS: Heart size and pulmonary vascularity are within normal limits, and the lungs are clear, bilaterally. IMPRESSION: Unremarkable chest. Reviewed: Reviewed by Me Departure Impression Primary Impression: Cough Disposition: 01 HOME, SELF-CARE Condition: Stable Departure-Patient Inst. Decision time for Depature: 18:53 Referrals: [facility] (PCP/Family) Primary Care Physician Patient Instructions: Cough, Adult (DC) Add. Discharge Instructions: LOTS OF CLEAR LIQUIDS FOLLOW UP WITH [facility] IN 1 WEEK IF NO BETTER All discharge instructions reviewed with patient and/or family. Voiced understanding. Scripts Benzonatate (TESSALON PERLES) 100 Mg Capsule 200 MG PO TID, #30 CAP Prov: EMETERIO GARCIA DO 09/09/21 Guaifenesin/Dextromethorphan (Mucinex Dm ER 1,200-60 mg Tab) 1 Each Tbmp.12hr 1 EACH PO BID, #20 EA Prov: EMETERIO GARCIA DO 09/09/21 EMETERIO GARCIA DO Sep 09, 2021 17:40
[2021-09-09] MEDS ORDERED: BENZ100C18 PO (17:50)
[2021-09-09] MEDS ORDERED: GUAI1TBM19 PO (17:50)
--- NOTE | 2021-09-09 17:56 | Diagnostic Imaging Report ---
INDICATION: Cough. EXAMINATION: PA and lateral views of the chest were obtained. COMPARISON: 11/12/2019. FINDINGS: Heart size and pulmonary vascularity are within normal limits, and the lungs are clear, bilaterally. IMPRESSION: Unremarkable chest. Dictated by: Dictated on workstation # [id number]
== END 2021-09-09 19:14 | disposition home or self-care (01) ==
LOC: EDUNIT# 17:11 → ER 17:13
DX: R05.9 Cough, unspecified (principal); E66.9 Obesity, unspecified; Z68.41 Body mass index [BMI] 40.0-44.9, adult
CPT/HCPCS: 71046; 87636

== ENCOUNTER 2021-12-16 16:59 | Emergency (ER) | payer MEDICAID ==
[~2021-12-16] VITALS: Ht 150 cm; Wt 120.2 kg
[~2021-12-16 16:59] MED LIST changes: +BENZ100C18 PO; +GUAI1TBM19 PO
[2021-12-16] MEDS ORDERED: NS IV 1000 ML 1,000 ML IV STA (17:38)
[2021-12-16] MEDS ORDERED: ONDANSETRON 4 MG/2 ML (SDV) Z0FRAN IVP ONE (17:45)
--- NOTE | 2021-12-16 18:02 | ED GI ---
General Chief Complaint: Abdominal/GI Problems Stated Complaint: BURNING IN BELLY Nursing Triage Note: AB PAIN-TREATED FOR H PYLORI LAST WEEK AT [facility] AND FEELS WORSE NOW. PT REPORT N/V/D Source of Information: Patient Exam Limitations: No Limitations (TED SHOEMAKER) History of Present Illness Date Seen by Provider: Dec 16, 2021 Time Seen by Provider: 17:59 Initial Comments This is a 36-year-old female that presents to the emergency room for evaluation of nausea, vomiting and diarrhea. She states that she was recently treated for H. pylori and that 2 days ago she started having significant nausea and vomiting. She states that she has tried various foods and drinks without being able to hold them down. She is not having significant pain, fever, chills, shortness of breath or cough. Timing/Duration: 3-4 Days Severity/Quality: Moderate Radiation: No Radiation Activities at Onset: None (TED SHOEMAKER) Allergies and Home Medications Allergies Coded Allergies: No Known Drug Allergies (Unverified , 11/28/20) Patient Home Medication List Home Medication List Reviewed: Yes (TED SHOEMAKER) Albuterol (Proair Hfa) 8.5 Gm Hfa.aer.ad, (Reported) Entered as Reported by: BOB GREY on 09/23/172250 Benzonatate (Tessalon Perles) 100 Mg Capsule, 200 MG PO TID Prescribed by: EMETERIO GARCIA on 09/09/211749 Cephalexin (Cephalexin) 500 Mg Tablet, 500 MG PO TID Prescribed by: BRITNI TELLO on 07/08/211956 Doxycycline Hyclate (Doxycycline Hyclate) 100 Mg Tablet, 100 MG PO BID Prescribed by: SELENE ESCALONA on 02/04/212107 Ferrous Sulfate (Iron) 325 Mg Tablet, 325 MG PO DAILY Prescribed by: BRITTA PRAKASH on 02/05/20 165 Guaifenesin/Dextromethorphan (Mucinex Dm ER 1,200-60 mg Tab) 1 Each Tbmp.12hr, 1 EACH PO BID Prescribed by: EMETERIO GARCIA on 09/09/21 175 Hydrocodone/Acetaminophen (Hydrocodone-Acetamin 5-325 mg) 1 Each Tablet, 1 TAB PO Q4H PRN for PAIN-MODERATE (5-7) Prescribed by: KIM AYALA on 07/23/211823 Hyoscyamine Sulfate (Levsin-Sl) 0.125 Mg Tab.subl, 0.125 MG SL Q4H Prescribed by: KIM AYALA on 05/11/21 1640 Omeprazole (Omeprazole) 20 Mg Capsule.dr, 20 MG PO BID Prescribed by: JOSÉ MIGUEL SIERRA on 04/13/211918 Ondansetron (Ondansetron Odt) 8 Mg Tab.rapdis, 8 MG PO Q6H Prescribed by: EMETERIO GARCAI on 07/14/212234 Ondansetron (Ondansetron Odt) 4 Mg Tab.rapdis, 4 MG PO TID Prescribed by: Evaristo Shoemaker on 12/16/211828 Pantoprazole Sodium (Protonix) 40 Mg Tablet.dr, 40 MG PO DAILY Prescribed by: YOHANNES RANDOLPH on 11/28/20 1100 Review of Systems Review of Systems Constitutional: malaise EENTM: No Symptoms Reported Respiratory: No Symptoms Reported Cardiovascular: No Symptoms Reported Gastrointestinal: Diarrhea, Nausea, Poor Appetite, Poor Fluid Intake, Vomiting Genitourinary: No Symptoms Reported Musculoskeletal: no symptoms reported Skin: no symptoms reported Psychiatric/Neurological: No Symptoms Reported (TED SHOEMAKER) Past Uhqlvfq-Vxgoqn-Dbqccp Hx Patient Social History Tobacco Use?: No (TED SHOEMAKER) Immunizations Up To Date Tetanus Booster (TDap): Less than 5yrs First/Initial COVID19 Vaccinat: 09-21 Second COVID19 Vaccination Anoop: 01-21 (TED SHOEMAKER) Seasonal Allergies Seasonal Allergies: No (TED SHOEMAKER) Past Medical History Surgery/Hospitalization HX: HX OF ASTHMA TUBAL LIGATION / ON DEPO PROVERA FOR HEAVY PERIODS Surgeries: Yes (Umbilical Hernia Repair) Abdominal, Section, Tubal Ligation Respiratory: Yes (COVID-19 IN JULY 2021--NO TREATMENT) Asthma Cardiac: Yes Hypertension Neurological: No Reproductive Disorders: Yes Female Reproductive Disorders: Menstrual 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 pylori) Gastroesophageal Reflux, Ulcer Musculoskeletal: No Endocrine: Yes (OBESE) HEENT: No Cancer: No Psychosocial: No Integumentary: No Blood Disorders: Yes (ANEMIA--HGB IN 7 TO 8 RANGE CHRONICALLY) Adverse Reaction/Blood Tranf: No (TED SHOEMAKER) Family Medical History No Pertinent Family Hx PAST SURGICAL HISTORY: -BILATERAL TUBAL LIGATION - -UMBILICAL HERNIA REPAIR -EGD/COLONOSCOPY 11/[address] RANDOLPH: POSTOPERATIVE DIAGNOSES: Reflux esophagitis stage II, small hiatal hernia 1.5 cm in size, moderate gastritis, poor colonic prep with hard stool throughout the colon, likely indicating constipation at this time, mild small ulcerative plaques of the cecum, which may indicate a mild intermittent colitis. (TED SHOEMAKER) Physical Exam Vital Signs Vital Signs - First Documented 12/16/21 17:27 Temp 36.1 Pulse 90 Resp 22 B/P (MAP) 128/86 (100) Pulse Ox 97 O2 Delivery Room Air (JOSÉ MIGUEL FLYNN MD) Vital Signs Capillary Refill : Less Than 3 Seconds (TED SHOEMAKER) Height/Weight/BMI Height: 4'9.00" Weight: 205lbs. oz. 92.919725aa; 53.00 BMI Method:Stated General Appearance: WD/WN, no apparent distress HEENT: PERRL/EOMI, TMs normal Neck: non-tender Respiratory: chest non-tender, lungs clear, normal breath sounds Cardiovascular: regular rate, rhythm Gastrointestinal: normal bowel sounds, non tender, soft Extremities: normal range of motion, non-tender Back: normal inspection Neurologic/Psychiatric: car loader II-XII nml as tested, oriented x 3 Skin: normal color (TED SHOEMAKER) Progress/Results/Core Measures Results/Orders Lab Results Laboratory Tests Test 12/16/21 17:50 Range/Units White Blood Count 10.2 4.3-11.0 10^3/uL Red Blood Count 4.50 3.80-5.11 10^6/uL Hemoglobin 7.9 L 11.5-16.0 g/dL Hematocrit 28 L 35-52 % Mean Corpuscular Volume 62 L 80-99 fL Mean Corpuscular Hemoglobin 18 L 25-34 pg Mean Corpuscular Hemoglobin Concent 28 L 32-36 g/dL Red Cell Distribution Width 19.8 H 10.0-14.5 % Platelet Count 471 H 130-400 10^3/uL Mean Platelet Volume 10.6 9.0-12.2 fL Immature Granulocyte % (Auto) 0 % Neutrophils (%) (Auto) 61 42-75 % Lymphocytes (%) (Auto) 27 12-44 % Monocytes (%) (Auto) 9 0-12 % Eosinophils (%) (Auto) 2 0-10 % Basophils (%) (Auto) 1 0-10 % Neutrophils # (Auto) 6.2 1.8-7.8 10^3/uL Lymphocytes # (Auto) 2.8 1.0-4.0 10^3/uL Monocytes # (Auto) 0.9 0.0-1.0 10^3/uL Eosinophils # (Auto) 0.3 0.0-0.3 10^3/uL Basophils # (Auto) 0.1 0.0-0.1 10^3/uL Immature Granulocyte # (Auto) 0.0 0.0-0.1 10^3/uL Sodium Level 143 135-145 MMOL/L Potassium Level 3.1 L 3.6-5.0 MMOL/L Chloride Level 107 98-107 MMOL/L Carbon Dioxide Level 26 21-32 MMOL/L Anion Gap 10 5-14 MMOL/L Blood Urea Nitrogen 8 7-18 MG/DL Creatinine 0.72 0.60-1.30 MG/DL Estimat Glomerular Filtration Rate 111 BUN/Creatinine Ratio 11 Glucose Level 74 70-105 MG/DL Calcium Level 8.8 8.5-10.1 MG/DL Corrected Calcium 8.8 8.5-10.1 MG/DL Total Bilirubin 0.3 0.1-1.0 MG/DL Aspartate Amino Transf (AST/SGOT) 17 5-34 U/L Alanine Aminotransferase (ALT/SGPT) 13 0-55 U/L Alkaline Phosphatase 74 40-136 U/L Total Protein 8.0 6.4-8.2 GM/DL Albumin 4.0 3.2-4.5 GM/DL Lipase 34 8-78 U/L Serum Test, Qualitative NEGATIVE NEGATIVE (JOSÉ MIGUEL FLYNN MD) Vital Signs/I&O 12/16/21 12/16/21 17:27 19:53 Temp 36.1 36.1 Pulse 90 80 Resp 22 20 B/P (MAP) 128/86 (100) 126/84 Pulse Ox 97 97 O2 Delivery Room Air Room Air 12/17/21 00:00 Intake Total 1000 ml Balance 1000 ml (JOSÉ MIGUEL FLYNN MD) Blood Pressure Mean: 100 Departure Communication (PCP) Patient is afebrile, nontoxic and in no acute distress. Her abdomen is soft and nontender. No evidence or suspicion of cholecystitis, appendicitis, bowel obstruction, perforation or other emergent condition. Patient feels markedly improved after IV hydration and normal saline. I recommended close primary care follow-up and will discharge with Zofran. (TED SHOEMAKER) Impression Primary Impression: Nausea and vomiting Disposition: HOME, SELF-CARE Condition: Stable Departure-Patient Inst. Decision time for Depature: 18:28 (TED SHOEMAKER) [facility]errals: [facility] [place] Primary Care Physician Patient Instructions: Viral Gastroenteritis, Nausea and Vomiting, Adult Add. Discharge Instructions: Please follow-up closely with your primary care doctor. Return to the emergency room with any severe changes or worsening of symptoms. All discharge instructions reviewed with patient and/or family. Voiced understanding. Scripts Ondansetron (Ondansetron Odt) 4 Mg Tab.rapdis 4 MG PO TID for Nausea, #14 TAB Prov: TED SHOEMAKER 12/16/21 ATTENDING PHYSICIAN NOTE: I was physically present as attending physician in the emergency department during the care of this patient, but I was not directly involved in the decision making or delivery of care for this patient. (JOSÉ MIGUEL FLYNN MD) TED SHOEMAKER Dec 16, 2021 18:02 JOSÉ MIGUEL FLYNN MD Dec 17, 2021 21:38
[2021-12-16 18:09] LABS: BASOPHILS # (AUTO) 0.1 10^3/uL (0.0-0.1); BASOPHILS % (AUTO) 1 % (0-10); EOSINOPHILS # (AUTO) 0.3 10^3/uL (0.0-0.3); EOSINOPHILS % (AUTO) 2 % (0-10); HEMATOCRIT 28 % (35-52); HEMOGLOBIN 7.9 g/dL (11.5-16.0); LYMPHOCYTES # (AUTO) 2.8 10^3/uL (1.0-4.0); LYMPHOCYTES % (AUTO) 27 % (12-44); MEAN CORPUSCULAR HEMOGLOBIN 18 pg (25-34); MEAN CORPUSCULAR HGB CONC 28 g/dL (32-36); MEAN CORPUSCULAR VOLUME 62 fL (80-99); MEAN PLATELET VOLUME 10.6 fL (9.0-12.2); MONOCYTES # (AUTO) 0.9 10^3/uL (0.0-1.0); MONOCYTES % (AUTO) 9 % (0-12); NEUTROPHILS # (AUTO) 6.2 10^3/uL (1.8-7.8); NEUTROPHILS % (AUTO) 61 % (42-75); PLATELET COUNT 471 10^3/uL (130-400); WHITE BLOOD COUNT 10.2 10^3/uL (4.3-11.0)
[2021-12-16 18:11] LABS: POTASSIUM 3.1 MMOL/L (3.6-5.0)
[2021-12-16 18:13] LABS: CALCIUM 8.8 MG/DL (8.5-10.1)
[2021-12-16 18:15] LABS: BILIRUBIN,TOTAL 0.3 MG/DL (0.1-1.0)
[2021-12-16 18:17] LABS: CREATININE SERUM 0.72 MG/DL (0.60-1.30)
[2021-12-16] MEDS ORDERED: ONDA4TAB11 PO (18:29)
[2021-12-16] MEDS ORDERED: PANTOPRAZOLE 40 MG (PROTONIX) VIAL IV ONE (18:45)
[2021-12-16 19:53] VITALS: BP 126/84
== END 2021-12-16 19:52 | disposition home or self-care (01) ==
LOC: EDUNIT# 16:59 → ER 17:02
DX: R11.2 Nausea with vomiting, unspecified (principal); E66.9 Obesity, unspecified; Z68.43 Body mass index [BMI] 50.0-59.9, adult; Z87.19 Personal history of other diseases of the digestive system; Z86.16 Personal history of COVID-19; Z32.02 Encounter for pregnancy test, result negative
CPT/HCPCS: 36415; 80053; 83690; 84703; 85025; 99281

== ENCOUNTER 2022-03-03 20:01 | Emergency (ER) | payer MEDICAID ==
[2022-03-03] MEDS ORDERED: KETOROLAC 60 MG/2 ML VIAL IM STA (20:21)
[2022-03-03] MEDS ORDERED: ONDANSETRON 4 MG (ZOFRAN) ORAL DISSOLVE TAB SL STA (20:21)
--- NOTE | 2022-03-03 20:34 | ED Headache ---
General Chief Complaint: Head/Cervical Problems Stated Complaint: HEADACHE Nursing Triage Note: TO ED VIA POV AND AMBULATORY TO FT3 WITH C/O MIGRAINE FOR 2 WEEKS. LAST TYLENOL AND IBUPROFEN THIS MORNING. NO CURRENT PCP. History of Present Illness Date Seen by Provider: Mar 03, 2022 Time Seen by Provider: 20:15 Initial Comments 36-year-old -[place] female presents with headache that has been present for 2 weeks. She denies any sinus symptoms. She has had no visual changes. She has mild nausea no vomiting. She reports pain through the night that awakens her at times. She has taken Tylenol and ibuprofen with no improvement in her symptoms. She has not been seen by her primary care provider as she reports they are booked out at [facility] and she is establishing with a new one. She has not been seen at [facility] walk-in either. Hx of recurrent headaches. She last took Tylenol at 0800 today. She reports drinking 4-5 bottles of water daily. Timing/Duration: waxing and waning Severity/Quality: moderate Location: frontal Prior Headaches/Recent Trauma: no recent headache/trauma, occasional headaches Associated Symptoms: No confusion, No fatigue, No facial pain, No fever/chills, No flushing, No loss of consciousness; nausea/vomiting; No nasal congestion, No nasal drainage, No seizures, No sinus infection, No stiff neck, No vision changes, No weakness Allergies and Home Medications Allergies Coded Allergies: No Known Drug Allergies (Unverified , 11/28/20) Patient Home Medication List Home Medication List Reviewed: Yes Albuterol (Proair Hfa) 8.5 Gm Hfa.aer.ad, (Reported) Entered as Reported by: BOB GREY on 09/23/172250 Benzonatate (Tessalon Perles) 100 Mg Capsule, 200 MG PO TID Prescribed by: EMETERIO GARCIA on 09/09/21 175 Cephalexin (Cephalexin) 500 Mg Tablet, 500 MG PO TID Prescribed by: BRITNI TELLO on 07/08/211956 Doxycycline Hyclate (Doxycycline Hyclate) 100 Mg Tablet, 100 MG PO BID Prescribed by: SELENE ESCALONA on 02/04/212107 Ferrous Sulfate (Iron) 325 Mg Tablet, 325 MG PO DAILY Prescribed by: BRITTA PRAKASH on 02/05/20 165 Guaifenesin/Dextromethorphan (Mucinex Dm ER 1,200-60 mg Tab) 1 Each Tbmp.12hr, 1 EACH PO BID Prescribed by: EMETERIO GARCIA on 09/09/21 175 Hydrocodone/Acetaminophen (Hydrocodone-Acetamin 5-325 mg) 1 Each Tablet, 1 TAB PO Q4H PRN for PAIN-MODERATE (5-7) Prescribed by: KIM AYALA on 07/23/21 182 Hyoscyamine Sulfate (Levsin-Sl) 0.125 Mg Tab.subl, 0.125 MG SL Q4H Prescribed by: KIM AYALA on 05/11/21 1640 Omeprazole (Omeprazole) 20 Mg Capsule.dr, 20 MG PO BID Prescribed by: JOSÉ MIGUEL SIERRA on 04/13/21 191 Ondansetron (Ondansetron Odt) 8 Mg Tab.rapdis, 8 MG PO Q6H Prescribed by: EMETERIO GARCIA on 07/14/21 223 Ondansetron (Ondansetron Odt) 4 Mg Tab.rapdis, 4 MG PO TID Prescribed by: Evaristo Shoemaker on 12/16/21 182 Pantoprazole Sodium (Protonix) 40 Mg Tablet.dr, 40 MG PO DAILY Prescribed by: YOHANNES RANDOLPH on 11/28/20 1100 Review of Systems Review of Systems Constitutional: no symptoms reported, see HPI Eyes: No Symptoms Reported, See HPI; Denies Blurred Vision Ears, Nose, Mouth, Throat: no symptoms reported, see HPI Respiratory: no symptoms reported, see HPI Cardiovascular: no symptoms reported, see HPI Gastrointestinal: no symptoms reported, see HPI All Other Systems Reviewed Negative Unless Noted: Yes Past Iflgbmj-Ghlrww-Wapdwd Hx Patient Social History Tobacco Use?: Yes Smoking Status: Current Everyday Smoker Substance use?: No Alcohol Use?: No Immunizations Up To Date Tetanus Booster (TDap): Less than 5yrs First/Initial COVID19 Vaccinat: 09-21 Second COVID19 Vaccination Anoop: 01-21 Seasonal Allergies Seasonal Allergies: No Past Medical History Surgery/Hospitalization HX: HX OF ASTHMA TUBAL LIGATION / ON DEPO PROVERA FOR HEAVY PERIODS Surgeries: Yes (Umbilical Hernia Repair) Abdominal, Section, Tubal Ligation Respiratory: Yes (COVID-19 IN JULY 2021--NO TREATMENT) Asthma Cardiac: Yes Hypertension Neurological: No Reproductive Disorders: Yes Female Reproductive Disorders: Menstrual 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 pylori) Gastroesophageal Reflux, Ulcer Musculoskeletal: No Endocrine: Yes (OBESE) HEENT: No Cancer: No Psychosocial: No Integumentary: No Blood Disorders: Yes (ANEMIA--HGB IN 7 TO 8 RANGE CHRONICALLY) Adverse Reaction/Blood Tranf: No Family Medical History Reviewed Nursing Family Hx No Pertinent Family Hx PAST SURGICAL HISTORY: -BILATERAL TUBAL LIGATION - -UMBILICAL HERNIA REPAIR -EGD/COLONOSCOPY 11/[address] RANDOLPH: POSTOPERATIVE DIAGNOSES: Reflux esophagitis stage II, small hiatal hernia 1.5 cm in size, moderate gastritis, poor colonic prep with hard stool throughout the colon, likely indicating constipation at this time, mild small ulcerative plaques of the cecum, which may indicate a mild intermittent colitis. Physical Exam Vital Signs Vital Signs - First Documented 03/03/22 20:14 Temp 36.9 Pulse 78 Resp 16 B/P (MAP) 136/84 (101) Pulse Ox 100 O2 Delivery Room Air Capillary Refill : Less Than 3 Seconds Height, Weight, BMI Height: 4'9.00" Weight: 205lbs. oz. 92.308695hz; 53.00 BMI Method:Stated General Appearance: WD/WN, no apparent distress HEENT: PERRL/EOMI, normal ENT inspection, TMs normal, pharynx normal Neck: non-tender, full range of motion, supple, normal inspection Cardiovascular: normal peripheral pulses, regular rate, rhythm Respiratory: chest non-tender, lungs clear, normal breath sounds Gastrointestinal: normal bowel sounds, non tender, soft Psychiatric: alert, oriented x 3 Crainal Nerves: normal hearing, normal speech, PERRL Coordination/Gait: normal finger to nose, normal gait Skin: normal color, warm/dry Progress/Results/Core Measures Results/Orders My Orders Orders - SHANI CAMARGO Ondansetron Oral Dissolve Tab (Zofran (03/03/22 20:21) Ketorolac Injection (Toradol Injection) (03/03/22 20:21) Rx-Ondansetron Po (Rx-Zofran Po) (03/03/22 20:35) Vital Signs/I&O 03/03/22 03/03/22 20:14 20:59 Temp 36.9 36.9 Pulse 78 78 Resp 16 16 B/P (MAP) 136/84 (101) 136/84 Pulse Ox 100 100 O2 Delivery Room Air Room Air Blood Pressure Mean: 101 Departure Impression Primary Impression: Migraine Qualified Codes: G43.009 - Migraine without aura, not intractable, without status migrainosus Additional Impression: Nausea Disposition: HOME, SELF-CARE Condition: Improved Departure-Patient Inst. Decision time for Depature: 20:40 Referrals: [facility] (PCP/Family) Primary Care Physician Patient Instructions: Migraines (DC) Add. Discharge Instructions: Increase water intake, 16 oz every 2 hours while awake. Take 2 Excedrin Migraine every 6 hours for headache. Follow up at [facility] or Call for Appt with a primary care provider at [facility] if symptoms are not improving or worsen. Take Benadryl 25 mg, 2 tablets before bed. Schedule an appt with an eye doctor for vision evaluation. Return to the Emergency Dept for new or life threatening health care issues. All discharge instructions reviewed with patient and/or family. Voiced understanding. SHANI CAMARGO Mar 03, 2022 20:34
[2022-03-03] MEDS ORDERED: RX-ONDANSETRON 4 MG ODT (ZOFRAN) PPK #4 PO STA (20:35)
[2022-03-03 20:59] VITALS: BP 136/84
== END 2022-03-03 20:59 | disposition home or self-care (01) ==
LOC: EDUNIT# 20:01 → ER 20:02
DX: G43.909 Migraine, unspecified, not intractable, without status migrainosus (principal); E66.9 Obesity, unspecified; F17.200 Nicotine dependence, unspecified, uncomplicated; Z86.16 Personal history of COVID-19; Z68.43 Body mass index [BMI] 50.0-59.9, adult
CPT/HCPCS: 99284

== ENCOUNTER 2022-03-22 20:16 | Emergency (ER) | payer MEDICAID ==
[~2022-03-22] VITALS: Ht 125.2 cm; Wt 99.7 kg
--- NOTE | 2022-03-22 20:36 | ED General ---
General Chief Complaint: Fever-Adult/Adol Stated Complaint: SORE THROAT/RINGING IN EARS/FEVER/COUGH/NAUSEA Nursing Triage Note: Patient states fever of 101, SOB, sore throat, productive cough, and vomitting for past three days Source of Information: Patient Exam Limitations: No Limitations History of Present Illness Date Seen by Provider: Mar 22, 2022 Time Seen by Provider: 20:35 Initial Comments Nausea sore throat body aches for 3 days. She is also had vomiting and diarrhea. Timing/Duration: 2-3 Days Severity: Moderate Associated Systoms: Headaches Allergies and Home Medications Allergies Coded Allergies: No Known Drug Allergies (Unverified , 11/28/20) Patient Home Medication List Home Medication List Reviewed: Yes Albuterol (Proair Hfa) 8.5 Gm Hfa.aer.ad, (Reported) Entered as Reported by: BOB GREY on 09/23/172250 Benzonatate (Tessalon Perles) 100 Mg Capsule, 200 MG PO TID Prescribed by: EMETERIO GARCIA on 09/09/211749 Cephalexin (Cephalexin) 500 Mg Tablet, 500 MG PO TID Prescribed by: BRITNI TELLO on 07/08/211956 Doxycycline Hyclate (Doxycycline Hyclate) 100 Mg Tablet, 100 MG PO BID Prescribed by: SELENE ESCALONA on 02/04/212107 Ferrous Sulfate (Iron) 325 Mg Tablet, 325 MG PO DAILY Prescribed by: BRITTA PRAKASH on 02/05/20 165 Guaifenesin/Dextromethorphan (Mucinex Dm ER 1,200-60 mg Tab) 1 Each Tbmp.12hr, 1 EACH PO BID Prescribed by: EMETERIO GARCIA on 09/09/21 175 Hydrocodone/Acetaminophen (Hydrocodone-Acetamin 5-325 mg) 1 Each Tablet, 1 TAB PO Q4H PRN for PAIN-MODERATE (5-7) Prescribed by: KIM AYALA on 07/23/21 182 Hyoscyamine Sulfate (Levsin-Sl) 0.125 Mg Tab.subl, 0.125 MG SL Q4H Prescribed by: KIM AYALA on 05/11/21 1640 Omeprazole (Omeprazole) 20 Mg Capsule.dr, 20 MG PO BID Prescribed by: JOSÉ MIGUEL SIERRA on 10/11/21 1919 Ondansetron (Ondansetron Odt) 8 Mg Tab.rapdis, 8 MG PO Q6H Prescribed by: EMETERIO GARCIA on 07/14/212234 Ondansetron (Ondansetron Odt) 4 Mg Tab.rapdis, 4 MG PO TID Prescribed by: Evaristo Shoemaker on 12/16/21 182 Pantoprazole Sodium (Protonix) 40 Mg Tablet.dr, 40 MG PO DAILY Prescribed by: YOHANNES RANDOLPH on 11/28/20 1100 Review of Systems Review of Systems Constitutional: see HPI EENTM: see HPI, throat pain Respiratory: see HPI, cough Genitourinary: no symptoms reported Musculoskeletal: no symptoms reported Skin: no symptoms reported Psychiatric/Neurological: No Symptoms Reported Hematologic/Lymphatic: No Symptoms Reported Past Umzkksa-Yludna-Yqtkuu Hx Immunizations Up To Date Tetanus Booster (TDap): Less than 5yrs First/Initial COVID19 Vaccinat: 09-22 Second COVID19 Vaccination Anoop: 01-22 Seasonal Allergies Seasonal Allergies: No Past Medical History Surgery/Hospitalization HX: HX OF ASTHMA TUBAL LIGATION / ON DEPO PROVERA FOR HEAVY PERIODS Surgeries: Yes (Umbilical Hernia Repair) Abdominal, Section, Tubal Ligation Respiratory: Yes (COVID-19 IN JULY 2021--NO TREATMENT) Asthma Cardiac: Yes Hypertension Neurological: No Reproductive Disorders: Yes Female Reproductive Disorders: 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 pylori) Gastroesophageal Reflux, Ulcer Musculoskeletal: No Endocrine: Yes (OBESE) HEENT: No Cancer: No Psychosocial: No Integumentary: No Blood Disorders: Yes (ANEMIA--HGB IN 7 TO 8 RANGE CHRONICALLY) Adverse Reaction/Blood Tranf: No Family Medical History No Pertinent Family Hx PAST SURGICAL HISTORY: -BILATERAL TUBAL LIGATION - -UMBILICAL HERNIA REPAIR -EGD/COLONOSCOPY 11/[address] RANDOLPH: POSTOPERATIVE DIAGNOSES: Reflux esophagitis stage II, small hiatal hernia 1.5 cm in size, moderate gastritis, poor colonic prep with hard stool throughout the colon, likely indicating constipation at this time, mild small ulcerative plaques of the cecum, which may indicate a mild intermittent colitis. Physical Exam Vital Signs Vital Signs - First Documented 03/22/22 20:23 Temp 37.4 Pulse 107 Resp 20 B/P (MAP) 131/73 (92) Pulse Ox 99 O2 Delivery Room Air Capillary Refill : Less Than 3 Seconds Height, Weight, BMI Height: 4'9.00" Weight: 205lbs. oz. 92.168499xy; 63.00 BMI Method:Stated General Appearance: No Apparent Distress, WD/WN Eyes: Bilateral Eye Normal Inspection, Bilateral Eye PERRL, Bilateral Eye EOMI HEENT: PERRL/EOMI, TMs Normal Neck: Full Range of Motion, Normal Inspection Respiratory: No Accessory Muscle Use, No Respiratory Distress Cardiovascular: Regular Rate, Rhythm, Normal Peripheral Pulses Gastrointestinal: Normal Bowel Sounds, Non Tender, Soft Extremity: Normal Capillary Refill, Normal Inspection Neurologic/Psychiatric: Alert, Oriented x3 Skin: Normal Color, Warm/Dry Progress/Results/Core Measures Suspected Sepsis SIRS Temperature: Pulse: 107 Respiratory Rate: 20 Blood Pressure 131 /73 Mean: 92 Results/Orders Lab Results Laboratory Tests Test 03/22/22 20:25 Range/Units Influenza Type A (RT-PCR) Not Detected Not Detecte Influenza Type B (RT-PCR) Not Detected Not Detecte SARS-CoV-2 RNA (RT-PCR) Not Detected Not Detecte My Orders Orders - KIM AYALA APRN Covid 19 Inhouse Test (03/22/22 20:21) Influenza A And B By Pcr (03/22/22 20:21) Vital Signs/I&O 03/22/22 03/22/22 20:23 21:10 Temp 37.4 Pulse 107 101 Resp 20 16 B/P (MAP) 131/73 (92) 131/73 Pulse Ox 99 99 O2 Delivery Room Air Room Air Capillary Refill : Less Than 3 Seconds Blood Pressure Mean: 92 Departure Impression Primary Impression: Viral syndrome Disposition: 01 HOME, SELF-CARE Condition: Stable Departure-Patient Inst. Decision time for Depature: 20:36 Referrals: [facility] (PCP/Family) Primary Care Physician Patient Instructions: Viral Syndrome (DC) Add. Discharge Instructions: Tylenol and ibuprofen for fevers. Stay home from work tonight and tomorrow. Follow-up with your doctor this week All discharge instructions reviewed with patient and/or family. Voiced understanding. Work/School Note: Work Release Form Date Seen in the Emergency Department: Mar 22, 2022 Return to Work: Mar 24, 2022 KIM AYALA APRN Mar 22, 2022 20:36
[2022-03-22 21:10] VITALS: BP 131/73
[2022-03-22] MEDS ORDERED: RX-ONDANSETRON 4 MG ODT (ZOFRAN) PPK #4 PO STA (21:11)
[2022-03-22] MEDS ORDERED: PROMETHAZINE 25 MG (PHENERGAN) TAB PO ONE (21:15)
== END 2022-03-22 21:19 | disposition home or self-care (01) ==
LOC: EDUNIT# 20:16 → ER 20:19
DX: B34.9 Viral infection, unspecified (principal); E66.9 Obesity, unspecified; Z68.44 Body mass index [BMI] 60.0-69.9, adult; Z20.822 Contact with and (suspected) exposure to COVID-19
CPT/HCPCS: 87636; 99285

== ENCOUNTER 2022-04-15 20:19 | Emergency (ER) | payer MEDICAID ==
[~2022-04-15] VITALS: Ht 125 cm; Wt 100.0 kg
--- NOTE | 2022-04-15 21:13 | ED EENT ---
History of Present Illness General Chief Complaint: Oral/Throat Problems Stated Complaint: SORE THROAT,COUGHING UP MUCUS,NECK PAIN Nursing Triage Note: SORETHROAT X2 DAYS Source: patient Exam Limitations: no limitations (EARL FOURNIER) History of Present Illness Date Seen by Provider: Apr 15, 2022 Time Seen by Provider: 20:40 Initial Comments This is a 37 year old female who presents with sore throat, fever, and neck pain. Patient reports onset of symptoms two days ago. Patient denies any trauma to her neck. Patient states her neck pain is located on bilateral lateral sides and rates her pain as 10/10. Patient reports her max temperature has been 102.2. She states she has been taking ibuprofen for pain relief and fever reduction. She states her last dose was around 1400 today. Patient reports associated symptoms of SOA, green/yellow phlegm, nausea due to phlegm, diarrhea, and cough. Patient denies chest pain, congestion, vomiting, or previous occurrence. Patient denies recent sick contacts. Timing/Duration: other (two days ago) Severity: mild Location: throat, other (neck) Prearrival Treatment: over the counter meds (ibuprofen) Modifying Factors: Worse With Coughing Associated Symptoms: cough, fever, malaise; No nasal congestion/drainage; sore throat, other (neck pain) (EARL FOURNIER) Allergies and Home Medications Allergies Coded Allergies: No Known Drug Allergies (Unverified , 11/28/20) Patient Home Medication List Home Medication List Reviewed: Yes (EARL FOURNIER) Albuterol (Proair Hfa) 8.5 Gm Hfa.aer.ad, (Reported) Entered as Reported by: BOB GREY on 09/23/172250 Amoxicillin (Amoxicillin) 500 Mg Capsule, 1,000 MG PO BID Prescribed by: JOSÉ MIGUEL SIERRA on 04/15/22 2248 Benzonatate (Tessalon Perles) 100 Mg Capsule, 200 MG PO TID Prescribed by: EMETERIO GARCIA on 09/09/21 175 Cephalexin (Cephalexin) 500 Mg Tablet, 500 MG PO TID Prescribed by: BRITNI TELLO on 07/08/211956 Doxycycline Hyclate (Doxycycline Hyclate) 100 Mg Tablet, 100 MG PO BID Prescribed by: SELENE ESCALONA on 02/04/212107 Ferrous Sulfate (Iron) 325 Mg Tablet, 325 MG PO DAILY Prescribed by: BRITTA PRAKASH on 02/05/20 1650 Guaifenesin/Dextromethorphan (Mucinex Dm ER 1,200-60 mg Tab) 1 Each Tbmp.12hr, 1 EACH PO BID Prescribed by: EMETERIO GARCIA on 09/09/21 1750 Hydrocodone/Acetaminophen (Hydrocodone-Acetamin 5-325 mg) 1 Each Tablet, 1 TAB PO Q4H PRN for PAIN-MODERATE (5-7) Prescribed by: KIM AYALA on 07/23/21 182 Hyoscyamine Sulfate (Levsin-Sl) 0.125 Mg Tab.subl, 0.125 MG SL Q4H Prescribed by: KIM AYALA on 05/11/21 1640 Omeprazole (Omeprazole) 20 Mg Capsule.dr, 20 MG PO BID Prescribed by: JOSÉ MIGUEL SIERRA on 04/13/21 191 Ondansetron (Ondansetron Odt) 8 Mg Tab.rapdis, 8 MG PO Q6H Prescribed by: EMETERIO GARCIA on 07/14/21 2235 Ondansetron (Ondansetron Odt) 4 Mg Tab.rapdis, 4 MG PO TID Prescribed by: Evaristo Shoemaker on 12/16/21 182 Pantoprazole Sodium (Protonix) 40 Mg Tablet.dr, 40 MG PO DAILY Prescribed by: YOHANNES RANDOLPH on 11/28/20 1100 Review of Systems Review of Systems Constitutional: chills, fever, malaise Eyes: No Symptoms Reported Ears: No Symptoms Reported Nose: no symptoms reported Mouth: no symptoms reported Throat: pain, discharge, other (bilateral lateral neck pain) Respiratory: No cough; phlegm, short of breath Cardiovascular: no symptoms reported; No chest pain Gastrointestinal: diarrhea, nausea; No vomiting Musculoskeletal: neck pain Skin: no symptoms reported Neurological: No Symptoms Reported Hematologic/Lymphatic: No Symptoms Reported Immunological/Allergic: no symptoms reported (EARL FOURNIER) All Other Systems Reviewed Negative Unless Noted: Yes (EARL FOURNIER) Past Ysfjtkh-Gqruyw-Kcuqov Hx Patient Social History Tobacco Use?: Yes Tobacco type used: Cigarettes Substance use?: No Alcohol Use?: Yes Alcohol Frequency: Once in a while Pt feels they are or have been: No (EARL FOURNIER) Immunizations Up To Date Tetanus Booster (TDap): Less than 5yrs First/Initial COVID19 Vaccinat: 09-22 Second COVID19 Vaccination Anoop: 01-22 (EARL FOURNIER) Seasonal Allergies Seasonal Allergies: No (EARL FOURNIER) Past Medical History Surgery/Hospitalization HX: HX OF ASTHMA, TUBAL LIGATION / ON DEPO PROVERA FOR HEAVY PERIODS, GERD, ANEMIA, Surgeries: Yes (Umbilical Hernia Repair) Abdominal, Section, Tubal Ligation Respiratory: Yes (COVID-19 IN JULY 2021--NO TREATMENT) Asthma Cardiac: Yes Hypertension Neurological: No Reproductive Disorders: Yes Female Reproductive Disorders: Menstrual Problems [employer]CH[employer]IST [employer] HISTORY 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 pylori) Gastroesophageal Reflux, Ulcer Musculoskeletal: No Endocrine: Yes (OBESE) HEENT: No Cancer: No Psychosocial: No Integumentary: No Blood Disorders: Yes (ANEMIA--HGB IN 7 TO 8 RANGE CHRONICALLY) Adverse Reaction/Blood Tranf: No (EARL FOURNIER) Family Medical History No Pertinent Family Hx PAST SURGICAL HISTORY: -BILATERAL TUBAL LIGATION - -UMBILICAL HERNIA REPAIR -EGD/COLONOSCOPY 11/[address] RANDOLPH: POSTOPERATIVE DIAGNOSES: Reflux esophagitis stage II, small hiatal hernia 1.5 cm in size, moderate gastritis, poor colonic prep with hard stool throughout the colon, likely indicating constipation at this time, mild small ulcerative plaques of the cecum, which may indicate a mild intermittent colitis. (EARL FOURNIER) Physical Exam Vital Signs Vital Signs - First Documented 04/15/22 20:32 Temp 38.4 Pulse 111 Resp 16 B/P (MAP) 152/90 (110) Pulse Ox 98 O2 Delivery Room Air (JOSÉ MIGUEL FLYNN MD) Height, Weight, BMI Height: 4'9.00" Weight: 205lbs. oz. 92.037345ew; 64.00 BMI Method:Stated General Appearance: WD/WN, no apparent distress Eyes: bilateral eye normal inspection, bilateral eye PERRL, bilateral eye EOMI Ears: bilateral ear auricle normal, bilateral ear canal normal, bilateral ear TM normal Nose: normal inspection Mouth/Throat: pharynx tenderness, tonsillar exudate, other (pharyngeal erythema, white patches on tongue) Neck: lymphadenopathy (R), lymphadenopathy (L), tender lateral (bilaterally) Cardiovascular: normal peripheral pulses (left radial pulse +2), regular rate, rhythm, no murmur Respiratory: lungs clear, normal breath sounds, no respiratory distress, no accessory muscle use Gastrointestinal: normal bowel sounds, non tender, soft Neurologic/Psychiatric: alert, oriented x 3 Skin: normal color, warm/dry (EARL FOURNIER) Progress/Results/Core Measures Results/Orders Lab Results Laboratory Tests Test 04/15/22 21:04 Range/Units Influenza Type A (RT-PCR) Not Detected Not Detecte Influenza Type B (RT-PCR) Not Detected Not Detecte SARS-CoV-2 RNA (RT-PCR) Not Detected Not Detecte Group A Streptococcus Screen POSITIVE H NEGATIVE (JOSÉ MIGUEL FLYNN MD) My Orders Orders - JOSÉ MIGUEL FLYNN MD Covid 19 Inhouse Test (04/15/22 20:46) Influenza A And B By Pcr (04/15/22 20:46) Rapid Strep A Screen (04/15/22 20:46) Ondansetron Oral Dissolve Tab (Zofran (04/15/22 21:15) Amoxicillin Capsule (Polymox Capsule) (04/15/22 22:04) Albuterol Inhaler (Albuterol) (04/15/22 22:36) (JOSÉ MIGUEL FLYNN MD) Medications Given in ED Current Medications Medications Dose Ordered Sig/Giana Route Start Time Stop Time Status Last Admin Dose Admin Ondansetron HCl 4 mg ONCE ONCE SL 04/15/22 21:15 04/15/22 21:16 DC 04/15/22 21:24 4 MG (JOSÉ MIGUEL FLYNN MD) Vital Signs/I&O 04/15/22 20:32 Temp 38.4 Pulse 111 Resp 16 B/P (MAP) 152/90 (110) Pulse Ox 98 O2 Delivery Room Air (JOSÉ MIGUEL FLYNN MD) Blood Pressure Mean: 110 Departure Impression Primary Impression: Strep pharyngitis Additional Impression: Geographic tongue Disposition: 01 HOME, SELF-CARE Condition: Improved Departure-Patient Inst. Decision time for Depature: 22:46 (JOSÉ MIGUEL FLYNN MD) Referrals: [facility]/[place] (PCP/Family) Primary Care Physician Patient Instructions: Strep Throat ED Add. Discharge Instructions: Complete your antibiotics as prescribed. About 5 days in antibiotic treatment, replace or sanitize any oral instruments such as toothbrushes. You may treat pain and fever with ibuprofen up to 600 mg every 6 hours as needed and/or Tylenol (acetaminophen) up to 1000 mg every 6 hours as needed. Return to care if you have worsening symptoms despite following these instructions. You may return to work when fever free without the use of fever reducing medications for at least 24 hours. All discharge instructions reviewed with patient and/or family. Voiced understanding. Scripts Amoxicillin (Amoxicillin) 500 Mg Capsule 1000 MG PO BID, #28 CAP 0 Refills Prov: JOSÉ MIGUEL FLYNN MD 04/15/22 Work/School Note: Work Release Form Date Seen in the Emergency Department: Apr 15, 2022 Return to Work: Apr 17, 2022 Restrictions: Return-No Fever (24hrs), Return-No Vomiting(24hrs) Medical Student Attestation and Attending Note: I have personally interviewed and examined this patient along with Adelaide Fournier, MS 4. I have reviewed student documentation including history, physical, and assessments. I agree with the documentation except where otherwise noted. Exam: General: Alert, oriented, no acute distress, well developed HEENT: Normocephalic and atraumatic, tonsils mildly enlarged and erythematous Heart: Regular tachycardia without murmur Lungs: Clear to auscultation bilaterally with normal effort Neuropsych: Alert, oriented, no focal deficits Skin: Warm and dry without rashes Patient was treated with amoxicillin and prescription provided see discharge instructions for further discussion. (JOSÉ MIGUEL FLYNN MD) Copy Copies To 1: [facility]/EARL CROWELL Apr 15, 2022 21:13 JOSÉ MIGUEL FLYNN MD Apr 15, 2022 22:48
[2022-04-15] MEDS ORDERED: ONDANSETRON 4 MG (ZOFRAN) ORAL DISSOLVE TAB SL ONE (21:15)
[2022-04-15] MEDS ORDERED: AMOXICILLIN 500 MG (POLYMOX) CAP PO STA (22:04)
[2022-04-15] MEDS ORDERED: RT-ALBUTEROL HFA 8.5 GM INHALER IH ONE (22:36)
[2022-04-15] MEDS ORDERED: AMOX500C2 PO (22:48)
[2022-04-15 22:55] VITALS: BP 136/82
== END 2022-04-15 22:55 | disposition home or self-care (01) ==
LOC: EDUNIT# 20:19 → ER 20:21
DX: J02.0 Streptococcal pharyngitis (principal); K14.1 Geographic tongue; E66.9 Obesity, unspecified; F17.210 Nicotine dependence, cigarettes, uncomplicated; Z68.44 Body mass index [BMI] 60.0-69.9, adult; Z20.822 Contact with and (suspected) exposure to COVID-19
CPT/HCPCS: 87430; 87636; 99283

== ENCOUNTER 2022-05-04 11:12 | Emergency (ER) | payer MEDICAID ==
[~2022-05-04] VITALS: Ht 150 cm; Wt 95.3 kg
--- NOTE | 2022-05-04 11:53 | ED Cough/URI ---
General Chief Complaint: COVID19 Suspect/Confirmed Stated Complaint: SOA/COUGH Nursing Triage Note: PT AMB TO ED BY POV WITH C/O SOB, COUGH X 1 WK. PT REPORTS HER DAUGHTER HAD RSV LAST WEEK. PT ALSO C/O N/V X 3 DAYS. DENIES FEVER. PT HAS HX ASTHMA, HAS BEEN USING ALBUTEROL INHALER WITH NO RELIEF. Source: patient Exam Limitations: no limitations History of Present Illness Date Seen by Provider: May 04, 2022 Time Seen by Provider: 11:20 Initial Comments Patient is a 37-year-old female who presents to the emergency department with several days of cough and nasal congestion. She states she has also had a few days of shortness of air. She endorses a history of asthma. She states her child was diagnosed with RSV last week. She denies any fever. States she has been taking her albuterol inhaler at home with minimal improvement. States her cough has been nonproductive. Denies any nausea/vomiting/diarrhea. Allergies and Home Medications Allergies Coded Allergies: No Known Drug Allergies (Unverified , 11/28/20) Patient Home Medication List Home Medication List Reviewed: Yes Albuterol (Proair Hfa) 8.5 Gm Hfa.aer.ad, (Reported) Entered as Reported by: BOB GREY on 09/23/17 2251 Amoxicillin (Amoxicillin) 500 Mg Capsule, 1,000 MG PO BID Prescribed by: JOSÉ MIGUEL SIERRA on 04/15/22 2248 Benzonatate (Tessalon Perles) 100 Mg Capsule, 200 MG PO TID Prescribed by: EMETERIO GARCIA on 09/09/21 1750 Benzonatate (Tessalon Perles) 100 Mg Capsule, 100 MG PO QID PRN for COUGH Prescribed by: Lake Cohen on 05/04/22 1339 Cephalexin (Cephalexin) 500 Mg Tablet, 500 MG PO TID Prescribed by: BRITNI TELLO on 07/08/211956 Doxycycline Hyclate (Doxycycline Hyclate) 100 Mg Tablet, 100 MG PO BID Prescribed by: SELENE ESCALONA on 02/04/212107 Ferrous Sulfate (Iron) 325 Mg Tablet, 325 MG PO DAILY Prescribed by: BRITTA PRAKASH on 02/05/20 165 Guaifenesin/Dextromethorphan (Mucinex Dm ER 1,200-60 mg Tab) 1 Each Tbmp.12hr, 1 EACH PO BID Prescribed by: EMETERIO GARCIA on 09/09/21 1750 Hydrocodone/Acetaminophen (Hydrocodone-Acetamin 5-325 mg) 1 Each Tablet, 1 TAB PO Q4H PRN for PAIN-MODERATE (5-7) Prescribed by: KIM AYALA on 07/23/21 182 Hyoscyamine Sulfate (Levsin-Sl) 0.125 Mg Tab.subl, 0.125 MG SL Q4H Prescribed by: KIM AYALA on 05/11/21 1640 Omeprazole (Omeprazole) 20 Mg Capsule.dr, 20 MG PO BID Prescribed by: JOSÉ MIGUEL SIERRA on 04/13/21 191 Ondansetron (Ondansetron Odt) 8 Mg Tab.rapdis, 8 MG PO Q6H Prescribed by: EMETERIO GARCIA on 07/14/212234 Ondansetron (Ondansetron Odt) 4 Mg Tab.rapdis, 4 MG PO TID Prescribed by: Evaristo Shoemaker on 12/16/211828 Pantoprazole Sodium (Protonix) 40 Mg Tablet.dr, 40 MG PO DAILY Prescribed by: YOHANNES RANDOLPH on 11/28/20 1100 Review of Systems Review of Systems Constitutional: see HPI EENTM: see HPI Respiratory: see HPI Cardiovascular: no symptoms reported Gastrointestinal: no symptoms reported Genitourinary: no symptoms reported Skin: no symptoms reported Psychiatric/Neurological: No Symptoms Reported Past Hrfrtje-Xakune-Gbyzfh Hx Patient Social History Tobacco Use?: Yes Tobacco type used: Cigarettes Smoking Status: Current Everyday Smoker Use of E-Cig and/or Vaping dev: Yes E-Cig or Vaping type used: Nicotine Use of E-Cig and/or Vaping Braulio: Current Everyday User Substance use?: No Alcohol Use?: No Pt feels they are or have been: No Immunizations Up To Date Tetanus Booster (TDap): Less than 5yrs Influenza Vaccine Up-to-Date: No; Not Current First/Initial COVID19 Vaccinat: 09-22 Second COVID19 Vaccination Anoop: 01-22 COVID19 Vaccine 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 pylori) Gastroesophageal Reflux, Ulcer Musculoskeletal: No Endocrine: Yes (OBESE) HEENT: No Cancer: No Psychosocial: No Integumentary: No Blood Disorders: Yes (ANEMIA--HGB IN 7 TO 8 RANGE CHRONICALLY) Adverse Reaction/Blood Tranf: No Family Medical History No Pertinent Family Hx PAST SURGICAL HISTORY: -BILATERAL TUBAL LIGATION - -UMBILICAL HERNIA REPAIR -EGD/COLONOSCOPY 11/[address] RANDOLPH: POSTOPERATIVE DIAGNOSES: Reflux esophagitis stage II, small hiatal hernia 1.5 cm in size, moderate gastritis, poor colonic prep with hard stool throughout the colon, likely indicating constipation at this time, mild small ulcerative plaques of the cecum, which may indicate a mild intermittent colitis. Physical Exam Vital Signs - First Documented 05/04/22 11:18 Temp 36.9 Pulse 96 Resp 22 B/P (MAP) 129/85 (100) Pulse Ox 98 O2 Delivery Room Air Capillary Refill : Height: 4'9.00" Weight: 205lbs. oz. 92.809347hm; 42.00 BMI Method:Stated General Appearance: WD/WN, no apparent distress HEENT: PERRL/EOMI, normal ENT inspection, TMs normal, pharynx normal Neck: non-tender, full range of motion, supple, normal inspection Respiratory: chest non-tender, lungs clear, normal breath sounds, no respiratory distress, no accessory muscle use Cardiovascular: regular rate, rhythm Gastrointestinal: normal bowel sounds, non tender, soft Extremities: normal range of motion, non-tender Neurologic/Psychiatric: no motor/sensory deficits, alert, normal mood/affect, oriented x 3 Skin: normal color, warm/dry Progress/Results/Core Measures Suspected Sepsis SIRS Temperature: Pulse: 96 Respiratory Rate: 22 Blood Pressure 129 /85 Mean: 100 Results/Orders Lab Results Laboratory Tests Test 05/04/22 12:19 Range/Units Urine Test NEGATIVE NEGATIVE Influenza Type A (RT-PCR) Not Detected Not Detecte Influenza Type B (RT-PCR) Not Detected Not Detecte SARS-CoV-2 RNA (RT-PCR) Not Detected Not Detecte My Orders Orders - LA[place] COH[place] APRN Chest Pa/Lat (2 View) (05/04/22 11:33) Covid 19 Inhouse Test (05/04/22 11:37) Influenza A And B By Pcr (05/04/22 11:37) Isolation Central Supply Req (05/04/22 11:37) Hcg,Qualitative Urine (05/04/22 11:37) Dexamethasone Tablet (Decadron Tablet) (05/04/22 13:15) Vital Signs/I&O 05/04/22 05/04/22 11:18 14:01 Temp 36.9 Pulse 96 84 Resp 22 16 B/P (MAP) 129/85 (100) 124/87 Pulse Ox 98 94 O2 Delivery Room Air Room Air Capillary Refill : Blood Pressure Mean: 100 Progress Note : Progress Note Patient is nontoxic and well-hydrated on exam. No adventitious lung sounds or increased work of breathing noted. Vital signs are reassuring. Flu and COVID tests are negative. Chest x-ray is acutely negative. Patient was given a dose of Decadron given history of asthma. Patient will be discharged home with Rocael Smith for symptom management. Follow-up with PCP. Return precautions for urgent symptomology discussed. Patient verbalized understanding. Departure Impression Primary Impression: Upper respiratory infection Qualified Codes: J06.9 - Acute upper respiratory infection, unspecified Disposition: HOME, SELF-CARE Condition: Stable Departure-Patient Inst. Decision time for Depature: 13:35 Referrals: [facility]/[place] (PCP/Family) Primary Care Physician Patient Instructions: Viral Upper Respiratory Infection, Adult (DC) Scripts Benzonatate (NIKHILSALON PERLTEJINDER) 100 Mg Capsule 100 MG PO QID PRN for COUGH for 5 Days, #20 CAP 0 Refills Prov: [place] APRN 05/04/22 LA[place] APRN May 04, 2022 11:53
--- NOTE | 2022-05-04 13:22 | Diagnostic Imaging Report ---
INDICATION: Cough and shortness of breath. EXAMINATION: PA and lateral chest obtained at 1:19 PM. FINDINGS: The heart and mediastinal silhouette are normal in appearance. The lungs are clear. There is no pneumothorax or pleural fluid. IMPRESSION: Negative chest. Dictated by: Dictated on workstation # [id number]
[2022-05-04] MEDS ORDERED: BENZ100C18 PO (13:39)
[2022-05-04 14:01] VITALS: BP 124/87
== END 2022-05-04 14:01 | disposition home or self-care (01) ==
LOC: EDUNIT# 11:12 → ER 11:14
DX: J06.9 Acute upper respiratory infection, unspecified (principal); J45.909 Unspecified asthma, uncomplicated; F17.210 Nicotine dependence, cigarettes, uncomplicated; F17.290 Nicotine dependence, other tobacco product, uncomplicated; Z86.16 Personal history of COVID-19; Z20.822 Contact with and (suspected) exposure to COVID-19
CPT/HCPCS: 71046; 84703; 87636

== ENCOUNTER 2022-06-14 15:10 | Emergency (ER) | payer MEDICAID ==
[~2022-06-14] VITALS: Ht 149.8 cm; Wt 106.5 kg
[2022-06-14] MEDS ORDERED: KETOROLAC 30 MG/ML VIAL IM ONE (16:00)
[2022-06-14] MEDS ORDERED: ORPHENADRINE 60 MG/2 ML (NORFLEX) AMP (ED ONLY) IM ONE (16:00)
[2022-06-14 16:10] LABS: BILIRUBIN,URINE NEGATIVE (NEGATIVE); CLARITY,URINE CLEAR; COLOR,URINE YELLOW; GLUCOSE, URINE (UA) NEGATIVE (NEGATIVE); KETONES,URINE NEGATIVE (NEGATIVE); LEUKOCYTE ESTERASE ,URINE 2+ (NEGATIVE); NITRITE,URINE NEGATIVE (NEGATIVE); PH,URINE 5.5 (5-9); PROTEIN,URINE TRACE (NEGATIVE)
--- NOTE | 2022-06-14 16:19 | ED Abdominal Pain ---
General Chief Complaint: Abdominal/GI Problems Stated Complaint: ABD CRAMPING Nursing Triage Note: PT AMB TO TRIAGE WITH COMPLAINT OF ABD CRAMPING. STATES CRAMPING STARTED TWO WEEKS AGO AND SHE THOUGHT SHE WAS GOING TO START HER PERIOD. STATES CRAMPS WENT AWAY BUT CAME BACK YESTERDAY AND WERE STRONGER. STILL HAS NOT STARTED PERIOD. Source of Information: Patient Exam Limitations: No Limitations History of Present Illness Date Seen by Provider: Jun 14, 2022 Time Seen by Provider: 16:11 Allergies and Home Medications Allergies Coded Allergies: No Known Drug Allergies (Unverified , 11/28/20) Patient Home Medication List Albuterol (Proair Hfa) 8.5 Gm Hfa.aer.ad, (Reported) Entered as Reported by: BOB GREY on 09/23/17 225 Amoxicillin (Amoxicillin) 500 Mg Capsule, 1,000 MG PO BID Prescribed by: JOSÉ MIGUEL SIERRA on 04/15/22 2248 Benzonatate (Tessalon Perles) 100 Mg Capsule, 200 MG PO TID Prescribed by: EMETERIO GARCIA on 09/09/21 175 Benzonatate (Tessalon Perles) 100 Mg Capsule, 100 MG PO QID PRN for COUGH Prescribed by: Lake Cohen on 05/04/22 1339 Cephalexin (Cephalexin) 500 Mg Tablet, 500 MG PO TID Prescribed by: BRITNI TELLO on 07/08/211956 Doxycycline Hyclate (Doxycycline Hyclate) 100 Mg Tablet, 100 MG PO BID Prescribed by: SELENE ESCALONA on 02/04/212107 Ferrous Sulfate (Iron) 325 Mg Tablet, 325 MG PO DAILY Prescribed by: BRITTA PRAKASH on 02/05/20 1650 Guaifenesin/Dextromethorphan (Mucinex Dm ER 1,200-60 mg Tab) 1 Each Tbmp.12hr, 1 EACH PO BID Prescribed by: EMETERIO GARCIA on 09/09/21 175 Hydrocodone/Acetaminophen (Hydrocodone-Acetamin 5-325 mg) 1 Each Tablet, 1 TAB PO Q4H PRN for PAIN-MODERATE (5-7) Prescribed by: KIM AYALA on 07/23/21 1824 Hyoscyamine Sulfate (Levsin-Sl) 0.125 Mg Tab.subl, 0.125 MG SL Q4H Prescribed by: KIM AYALA on 05/11/21 1640 Omeprazole (Omeprazole) 20 Mg Capsule.dr, 20 MG PO BID Prescribed by: JOSÉ MIGUEL SEIRRA on 04/13/21 191 Ondansetron (Ondansetron Odt) 8 Mg Tab.rapdis, 8 MG PO Q6H Prescribed by: EMETERIO GARCIA on 07/14/21 223 Ondansetron (Ondansetron Odt) 4 Mg Tab.rapdis, 4 MG PO TID Prescribed by: Evaristo Shoemaker on 12/16/21 182 Pantoprazole Sodium (Protonix) 40 Mg Tablet., 40 MG PO DAILY Prescribed by: YOHANNES RANDOLPH on 11/28/20 1100 Past Vksmwig-Eukfup-Mfqeco Hx Patient Social History Tobacco Use?: Yes Tobacco type used: Cigarettes Smoking Status: Current Everyday Smoker Use of E-Cig and/or Vaping dev: No Substance use?: No Alcohol Use?: No Pt feels they are or have been: No Immunizations Up To Date Tetanus Booster (TDap): Less than 5yrs First/Initial COVID19 Vaccinat: 09-22 Second COVID19 Vaccination Anoop: 01-22 Third COVID19 Vaccination Date: 09-22 Seasonal Allergies Seasonal Allergies: No Past Medical History Surgery/Hospitalization HX: HX OF ASTHMA, TUBAL LIGATION / ON DEPO PROVERA FOR HEAVY PERIODS, GERD, ANEMIA, Surgeries: Yes (Umbilical Hernia Repair) Abdominal, Section, Tubal Ligation Respiratory: Yes (COVID-19 IN JULY 2021--NO TREATMENT) Asthma Cardiac: Yes Hypertension Neurological: No Reproductive Disorders: Yes Female 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 pylori) Gastroesophageal Reflux, Ulcer Musculoskeletal: No Endocrine: Yes (OBESE) HEENT: No Cancer: No Psychosocial: No Integumentary: No Blood Disorders: Yes (ANEMIA--HGB IN 7 TO 8 RANGE CHRONICALLY) Adverse Reaction/Blood Tranf: No Family Medical History No Pertinent Family Hx PAST SURGICAL HISTORY: -BILATERAL TUBAL LIGATION - -UMBILICAL HERNIA REPAIR -EGD/COLONOSCOPY 11/[address] RANDOLPH: POSTOPERATIVE DIAGNOSES: Reflux esophagitis stage II, small hiatal hernia 1.5 cm in size, moderate gastritis, poor colonic prep with hard stool throughout the colon, likely indicating constipation at this time, mild small ulcerative plaques of the cecum, which may indicate a mild intermittent colitis. Physical Exam Vital Signs Vital Signs - First Documented 06/14/22 15:23 Temp 37.3 Pulse 81 Resp 16 B/P (MAP) 141/82 (101) Pulse Ox 100 O2 Delivery Room Air Capillary Refill : Less Than 3 Seconds Height/Weight/BMI Height: 4'9.00" Weight: 205lbs. oz. 92.062897zw; 47.00 BMI Method:Stated Progress/Results/Core Measures Results/Orders Lab Results Laboratory Tests Test 06/14/22 15:33 Range/Units Urine Color YELLOW Urine Clarity CLEAR Urine pH 5.5 5-9 Urine Specific [place] >=1.030 1.016-1.022 Urine Protein TRACE H NEGATIVE Urine Glucose (UA) NEGATIVE NEGATIVE Urine Ketones NEGATIVE NEGATIVE Urine Nitrite NEGATIVE NEGATIVE Urine Bilirubin NEGATIVE NEGATIVE Urine Urobilinogen 1.0 < = 1.0 MG/DL Urine Leukocyte Esterase 2+ H NEGATIVE Urine RBC (Auto) NEGATIVE NEGATIVE Urine RBC NONE /HPF Urine WBC 10-25 H /HPF Urine Squamous Epithelial Cells 5-10 /HPF Urine Crystals NONE /LPF Urine Bacteria MODERATE H /HPF Urine Casts NONE /LPF Urine Mucus MODERATE H /LPF Urine Culture Indicated YES My Orders Orders - SELENE ESCALONA APRN Ct Abdomen/Pelvis Wo (06/14/22 15:58) Orphenadrine Inj (Ed Only) (Norflex Inje (06/14/22 16:00) Ketorolac Injection (Toradol Injection) (06/14/22 16:00) Ua Culture If Indicated (06/14/22 16:06) Urine Culture (06/14/22 15:33) Medications Given in ED Current Medications Medications Dose Ordered Sig/Giana Route Start Time Stop Time Status Last Admin Dose Admin Ketorolac Tromethamine 30 mg ONCE ONCE IM 06/14/22 16:00 06/14/22 16:01 DC 06/14/22 16:25 30 MG Orphenadrine Citrate 30 mg ONCE ONCE IM 06/14/22 16:00 06/14/22 16:01 DC 06/14/22 16:25 30 MG Vital Signs/I&O 06/14/22 15:23 Temp 37.3 Pulse 81 Resp 16 B/P (MAP) 141/82 (101) Pulse Ox 100 O2 Delivery Room Air Blood Pressure Mean: 101 Departure Impression Primary Impression: UTI (urinary tract infection) Disposition: 01 HOME, SELF-CARE Condition: Improved Departure-Patient Inst. Decision time for Depature: 17:26 Referrals: [facility]/[place] (PCP/Family) Primary Care Physician Patient Instructions: Urinary Tract Infections in Adults Add. Discharge Instructions: Plan: 1. Drink plenty of fluids to stay hydrated. 2. Take antibiotics as directed and complete full course. 3. Follow up with your doctor next week. All discharge instructions reviewed with patient and/or family. Voiced understanding. Scripts Nitrofurantoin Macrocrystal (Nitrofurantoin) 100 Mg Capsule 100 MG PO BID for 7 Days, #14 CAP 0 Refills Prov: SELENE ESCALONA NP 06/14/22 SELENE ESCALONA NP Jun 14, 2022 16:19
[2022-06-14 16:23] LABS: BACTERIA,URINE MODERATE /HPF
--- NOTE | 2022-06-14 16:26 | Diagnostic Imaging Report ---
EXAMINATION: CT abdomen and pelvis without contrast. TECHNIQUE: Multiple contiguous axial images were obtained through the abdomen and pelvis without the use of intravenous contrast. All CT scans use one or more of the following dose optimizing techniques: automated exposure control, MA and/or KvP adjustment based on patient size and exam type or iterative reconstruction. HISTORY: LLQ abdominal pain COMPARISON: 01/16/2020 FINDINGS: Lung bases: The lung bases are clear. Solid organs: The liver is normal. Multiple layering hyperdense stones within the gallbladder. There is no biliary ductal dilation. Pancreas is normal. Spleen is normal. Adrenal glands are normal. The kidneys are normal without visualized calculus or hydronephrosis. Bowel: The stomach and small bowel are normal without obstruction. The colon and appendix are normal. Peritoneum: There is no intraperitoneal free fluid or free air. No suspicious lymphadenopathy. Vasculature: Normal without aneurysm. Musculoskeletal: No suspicious osseous lesion or compression fracture. Pelvis: The uterus and adnexa are normal. The urinary bladder is normal. IMPRESSION: 1. No acute abnormality abdomen or pelvis. Dictated by: Dictated on workstation # [id number]
[2022-06-14] MEDS ORDERED: NITR100C PO (17:42)
[2022-06-14 18:03] VITALS: BP 141/82
== END 2022-06-14 18:03 | disposition home or self-care (01) ==
LOC: EDUNIT# 15:10 → ER 15:11
DX: N39.0 Urinary tract infection, site not specified (principal); F17.210 Nicotine dependence, cigarettes, uncomplicated; E66.9 Obesity, unspecified; Z68.42 Body mass index [BMI] 45.0-49.9, adult; Z87.442 Personal history of urinary calculi; Z86.16 Personal history of COVID-19; Z87.19 Personal history of other diseases of the digestive system
CPT/HCPCS: 74176; 81000; 87088; 99282

== ENCOUNTER 2022-10-19 18:34 | Emergency (ER) | payer MEDICAID ==
[~2022-10-19 18:34] MED LIST changes: +NITR100C PO
[2022-10-19] MEDS ORDERED: ASPIRIN 81 MG CHEW (CHILDREN'S ASA) PO ONE (18:45)
[2022-10-19] MEDS ORDERED: NITROGLYCERIN 0.4 MG SL TABS BTL 25'S SL PRN (18:45)
[2022-10-19 18:58] LABS: EOSINOPHILS % (AUTO) 1 % (0-10); HEMATOCRIT 30 % (35-52)
[2022-10-19 19:00] LABS: BASOPHILS # (AUTO) 0.1 10^3/uL (0.0-0.1); BASOPHILS % (AUTO) 1 % (0-10); EOSINOPHILS # (AUTO) 0.2 10^3/uL (0.0-0.3); HEMOGLOBIN 8.7 g/dL (11.5-16.0); LYMPHOCYTES % (AUTO) 24 % (12-44); MEAN CORPUSCULAR HEMOGLOBIN 19 pg (25-34); MEAN CORPUSCULAR HGB CONC 29 g/dL (32-36); MEAN CORPUSCULAR VOLUME 64 fL (80-99); MEAN PLATELET VOLUME 11.5 fL (9.0-12.2); MONOCYTES % (AUTO) 8 % (0-12); NEUTROPHILS # (AUTO) 8.4 10^3/uL (1.8-7.8); NEUTROPHILS % (AUTO) 66 % (42-75); PLATELET COUNT 451 10^3/uL (130-400); WHITE BLOOD COUNT 12.8 10^3/uL (4.3-11.0)
--- NOTE | 2022-10-19 19:02 | ED Chest Pain ---
General Chief Complaint: Chest Pain Stated Complaint: CHEST PAIN|EAR PAIN Source: patient History of Present Illness Date Seen by Provider: Oct 19, 2022 Time Seen by Provider: 18:40 Initial Comments PT ARRIVES VIA POV FROM HOME C/O CHEST PAIN SINCE YESTERDAY PAIN IS IN CENTER OF CHEST, DOES NOT RADIATE, AND RATES 10/10 Allergies and Home Medications Allergies Coded Allergies: No Known Drug Allergies (Unverified , 11/28/20) Patient Home Medication List Albuterol (Proair Hfa) 8.5 Gm Hfa.aer.ad, (Reported) Entered as Reported by: BOB GREY on 09/23/17 2251 Amoxicillin (Amoxicillin) 500 Mg Capsule, 1,000 MG PO BID Prescribed by: JOSÉ MIGUEL SIERRA on 04/15/22 2248 Benzonatate (Tessalon Perles) 100 Mg Capsule, 200 MG PO TID Prescribed by: EMETERIO GARCIA on 09/09/21 175 Benzonatate (Tessalon Perles) 100 Mg Capsule, 100 MG PO QID PRN for COUGH Prescribed by: [place] Cohen on 05/04/22 1339 Cephalexin (Cephalexin) 500 Mg Tablet, 500 MG PO TID Prescribed by: BRITNI TELLO on 07/08/21 195 Doxycycline Hyclate (Doxycycline Hyclate) 100 Mg Tablet, 100 MG PO BID Prescribed by: SELENE ESCALONA on 02/04/212107 Ferrous Sulfate (Iron) 325 Mg Tablet, 325 MG PO DAILY Prescribed by: BRITTA PRAKASH on 02/05/20 165 Guaifenesin/Dextromethorphan (Mucinex Dm ER 1,200-60 mg Tab) 1 Each Tbmp.12hr, 1 EACH PO BID Prescribed by: EMETERIO GARCIA on 09/09/21 1750 Hydrocodone/Acetaminophen (Hydrocodone-Acetamin 5-325 mg) 1 Each Tablet, 1 TAB PO Q4H PRN for PAIN-MODERATE (5-7) Prescribed by: KIM AYALA on 07/23/21 1824 Hyoscyamine Sulfate (Levsin-Sl) 0.125 Mg Tab.subl, 0.125 MG SL Q4H Prescribed by: KIM AYALA on 05/11/21 1640 Nitrofurantoin Macrocrystal (Nitrofurantoin) 100 Mg Capsule, 100 MG PO BID Prescribed by: SELENE ESCALONA on 06/14/22 174 Omeprazole (Omeprazole) 20 Mg Capsule., 20 MG PO BID Prescribed by: JOSÉ MIGUEL SIERRA on 04/13/211918 Ondansetron (Ondansetron Odt) 8 Mg Tab.rapdis, 8 MG PO Q6H Prescribed by: EMETERIO GARCIA on 07/14/212234 Ondansetron (Ondansetron Odt) 4 Mg Tab.rapdis, 4 MG PO TID Prescribed by: Evaristo Shoemaker on 12/16/211828 Pantoprazole Sodium (Protonix) 40 Mg Tablet., 40 MG PO DAILY Prescribed by: YOHANNES RANDOLPH on 11/28/20 1100 Past Kkipylr-Jriamr-Oqwdct Hx Immunizations Up To Date Tetanus Booster (TDap): Less than 5yrs First/Initial COVID19 Vaccinat: 09-22 Second COVID19 Vaccination Anoop: 01-22 Third COVID19 Vaccination Date: 09-22 Seasonal Allergies Seasonal Allergies: No Past Medical History Surgery/Hospitalization HX: HX OF ASTHMA, TUBAL LIGATION / ON DEPO PROVERA FOR HEAVY PERIODS, GERD, ANEMIA, Surgeries: Yes (Umbilical Hernia Repair) Abdominal, Section, Tubal Ligation Respiratory: Yes (COVID-19 IN JULY 2021--NO TREATMENT) Asthma Cardiac: Yes Hypertension Neurological: No Reproductive Disorders: Yes Female Reproductive Disorders: Menstrual Problems [employer] 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 pylori) Gastroesophageal Reflux, Ulcer Musculoskeletal: No Endocrine: Yes (OBESE) HEENT: No Cancer: No Psychosocial: No Integumentary: No Blood Disorders: Yes (ANEMIA--HGB IN 7 TO 8 RANGE CHRONICALLY) Adverse Reaction/Blood Tranf: No Family Medical History No Pertinent Family Hx PAST SURGICAL HISTORY: -BILATERAL TUBAL LIGATION - -UMBILICAL HERNIA REPAIR -EGD/COLONOSCOPY 11/[address] RANDOLPH: POSTOPERATIVE DIAGNOSES: Reflux esophagitis stage II, small hiatal hernia 1.5 cm in size, moderate gastritis, poor colonic prep with hard stool throughout the colon, likely indicating constipation at this time, mild small ulcerative plaques of the cecum, which may indicate a mild intermittent colitis. Physical Exam Vital Signs Vital Signs - First Documented 4/18/23 18:39 Temp 37.2 Pulse 98 Resp 20 B/P (MAP) 144/110 (121) Pulse Ox 99 O2 Delivery Room Air Capillary Refill : Height, Weight, BMI Height: 4'9.00" Weight: 205lbs. oz. 92.476497ud; 47.00 BMI Method:Stated Progress/Results/Core Measures Results/Orders Lab Results Laboratory Tests Test 10/19/22 18:42 10/19/22 19:55 Range/Units White Blood Count 12.8 H 4.3-11.0 10^3/uL Red Blood Count 4.69 3.80-5.11 10^6/uL Hemoglobin 8.7 L 11.5-16.0 g/dL Hematocrit 30 L 35-52 % Mean Corpuscular Volume 64 L 80-99 fL Mean Corpuscular Hemoglobin 19 L 25-34 pg Mean Corpuscular Hemoglobin Concent 29 L 32-36 g/dL Red Cell Distribution Width 18.6 H 10.0-14.5 % Platelet Count 451 H 130-400 10^3/uL Mean Platelet Volume 11.5 9.0-12.2 fL Immature Granulocyte % (Auto) 0 % Neutrophils (%) (Auto) 66 42-75 % Lymphocytes (%) (Auto) 24 12-44 % Monocytes (%) (Auto) 8 0-12 % Eosinophils (%) (Auto) 1 0-10 % Basophils (%) (Auto) 1 0-10 % Neutrophils # (Auto) 8.4 H 1.8-7.8 10^3/uL Lymphocytes # (Auto) 3.0 1.0-4.0 10^3/uL Monocytes # (Auto) 1.0 0.0-1.0 10^3/uL Eosinophils # (Auto) 0.2 0.0-0.3 10^3/uL Basophils # (Auto) 0.1 0.0-0.1 10^3/uL Immature Granulocyte # (Auto) 0.0 0.0-0.1 10^3/uL Percent Immature Platelet Fraction 6.6 0.0-7.6 % Prothrombin Time 13.9 12.2-14.7 SEC INR Comment 1.0 0.8-1.4 Activated Partial Thromboplast Time 34 24-35 SEC D-Dimer 0.89 H 0.00-0.49 UG/ML Sodium Level 139 135-145 MMOL/L Potassium Level 3.3 L 3.6-5.0 MMOL/L Chloride Level 107 98-107 MMOL/L Carbon Dioxide Level 21 21-32 MMOL/L Anion Gap 11 5-14 MMOL/L Blood Urea Nitrogen 6 L 7-18 MG/DL Creatinine 0.71 0.60-1.30 MG/DL Estimat Glomerular Filtration Rate 112 BUN/Creatinine Ratio 8 Glucose Level 100 70-105 MG/DL Calcium Level 8.6 8.5-10.1 MG/DL Corrected Calcium 8.6 8.5-10.1 MG/DL Magnesium Level 1.8 1.6-2.4 MG/DL Total Bilirubin 0.3 0.1-1.0 MG/DL Aspartate Amino Transf (AST/SGOT) 14 5-34 U/L Alanine Aminotransferase (ALT/SGPT) 12 0-55 U/L Alkaline Phosphatase 74 40-136 U/L Total Creatine Kinase 112 29-168 U/L Creatine Kinase MB 1.3 <6.6 NG/ML Myoglobin 21.8 10.0-92.0 NG/ML Troponin I < 0.028 <0.028 NG/ML B-Type Natriuretic Peptide < 10.0 <100.0 PG/ML Total Protein 8.1 6.4-8.2 GM/DL Albumin 4.0 3.2-4.5 GM/DL Amylase Level 41 25-125 U/L Lipase 21 8-78 U/L Serum Test, Qualitative NEGATIVE NEGATIVE Smear Scan YES Urine Color DARK YELLOW Urine Clarity CLEAR Urine pH 6.0 5-9 Urine Specific [place] >=1.030 1.016-1.022 Urine Protein 1+ H NEGATIVE Urine Glucose (UA) NEGATIVE NEGATIVE Urine Ketones NEGATIVE NEGATIVE Urine Nitrite NEGATIVE NEGATIVE Urine Bilirubin NEGATIVE NEGATIVE Urine Urobilinogen 0.2 < = 1.0 MG/DL Urine Leukocyte Esterase TRACE H NEGATIVE Urine RBC (Auto) NEGATIVE NEGATIVE Urine RBC NONE /HPF Urine WBC 10-25 H /HPF Urine Squamous Epithelial Cells 25-50 H /HPF Urine Crystals NONE /LPF Urine Bacteria MODERATE H /HPF Urine Casts PRESENT /LPF Urine Hyaline Casts 2-5 H /LPF Urine Mucus LARGE H /LPF Urine Culture Indicated NO My Orders Orders - EMETERIO GARCIA DO Cbc With Automated Diff (10/19/22 18:40) Magnesium (10/19/22 18:40) Chest 1 View, Ap/Pa Only (10/19/22 18:40) Ekg Tracing (10/19/22 18:40) Comprehensive Metabolic Panel (10/19/22 18:40) Myoglobin Serum (10/19/22 18:40) Protime With Inr (10/19/22 18:40) Partial Thromboplastin Time (10/19/22 18:40) O2 (10/19/22 18:40) Monitor-Rhythm Ecg Trace Only (10/19/22 18:40) Ed Iv/Invasive Line Start (10/19/22 18:40) Creatine Kinase (10/19/22 18:40) Creatine Kinase Mb (10/19/22 18:40) Lipase (10/19/22 18:40) Amylase (10/19/22 18:40) Bnp [place] (10/19/22 18:40) Fibrin Degradation Products (10/19/22 18:40) Troponin I [place] (10/19/22 18:40) Nitroglycerin 0.4 Mg Btl 25's (Nitrostat (10/19/22 18:45) Aspirin Chewable Tablet (Baby Aspirin Ch (10/19/22 18:45) Hcg,Qualitative Serum (10/19/22 18:50) Ua Culture If Indicated (10/19/22 18:50) Ct Nighat Chest/Noang Abd-Pelv W (10/19/22 19:27) Pantoprazole Injection (Protonix Injecti (10/19/22 19:30) Ketorolac Injection (Toradol Injection) (10/19/22 19:30) Iohexol Injection (Omnipaque 350 Mg/Ml 1 (10/19/22 19:30) Received Contrast (Hold Metformin- Contr (10/19/22 19:30) Ns (Ivpb) (Sodium Chloride 0.9% Ivpb Bag (10/19/22 19:30) Medications Given in ED Current Medications Medications Dose Ordered Sig/Giana Route Start Time Stop Time Status Last Admin Dose Admin Aspirin 324 mg ONCE ONCE PO 10/19/22 18:45 10/19/22 18:46 DC 10/19/22 19:04 324 MG Iohexol 100 ml ONCE ONCE IV 10/19/22 19:30 4/18/23 19:33 DC 10/19/22 19:47 100 ML Ketorolac Tromethamine 30 mg ONCE ONCE IVP 10/19/22 19:30 10/19/22 19:31 DC 10/19/22 19:57 30 MG Nitroglycerin 0.4 mg UD PRN SL 10/19/22 18:45 10/19/22 19:04 0.4 MG Pantoprazole 40 mg ONCE ONCE IV 10/19/22 19:30 10/19/22 19:31 DC 10/19/22 19:57 40 MG Sodium Chloride 100 ml ONCE ONCE IV 10/19/22 19:30 10/19/22 19:33 DC 10/19/22 19:47 80 ML Vital Signs/I&O 10/19/22 18:39 Temp 37.2 Pulse 98 Resp 20 B/P (MAP) 144/110 (121) Pulse Ox 99 O2 Delivery Room Air Progress Progress Note : Progress Note CHEST PAIN PROTOCOL INITIATED GIVEN: -ASPIRIN -NTG X 2--NO RELIEF -PROTONIX -TORADOL Diagnostic Imaging Comments CXR--PER RADIOLOGIST REPORT AT 1924 Comparison is made with prior chest of 04/13/2021. Heart size is normal. Lungs are clear. No infiltrates are seen. There is no effusion or pneumothorax. IMPRESSION: No acute cardiopulmonary process is detected. CT CHEST ANGIOGRAM / ABDOMEN-PELVIS--PER RADIOLOGIST REPORT AT 2003 CTA chest, abdomen and pelvis Thin axial sections through the chest, abdomen and pelvis are obtained following intravenous contrast bolus. Multiplanar MIP images were reconstructed and reviewed. All CT scans use one or more of the following dose optimizing techniques: automated exposure control, MA and/or KvP adjustment based on patient size and exam type or iterative reconstruction. The lungs are clear. There are no effusions or pneumothoraces. There are no pulmonary emboli. There is no right ventricular strain. There is no hilar or mediastinal lymphadenopathy The liver appears normal. There are small calculi in the gallbladder. Pancreas is normal. Spleen is not enlarged. GE junction is unremarkable. Kidneys and adrenals appear normal. The appendix is normal. Small bowel is not dilated. Colon is unremarkable. Uterus is present. Adnexa appear normal. Urinary bladder is normal. There is no intraperitoneal free air or free fluid. IMPRESSION: Cholecystolithiasis. No acute abnormality is seen. Reviewed: Reviewed by Me Departure Impression Primary Impression: Epigastric pain Additional Impressions: Cholelithiasis UTI (urinary tract infection) Disposition: 01 HOME, SELF-CARE Condition: Stable Departure-Patient Inst. Decision time for Depature: 20:44 Referrals: [facility] (PCP/Family) Primary Care Physician BERT BIGGS DO Patient Instructions: Urinary Tract Infection, Adult (DC), Abdominal Pain, Adult ED, Gallstones ED Add. Discharge Instructions: CLEAR LIQUIDS--WATER, BROTH, JELLO, GATORADE BRATS DIET--BANANAS, RICE, APPLESAUCE, TOAST, SALTINES FOLLOW UP WITH DR. BIGGS, SURGEON, FOR FURTHER EVALUATION OF GALLSTONES--CALL IN THE MORNING TO SCHEDULE AN APPOINTMENT FOLLOW UP WITH [facility] IN 4-5 DAYS TO RECHECK URINE RETURN TO ER IF YOUR SYMPTOMS WORSEN All discharge instructions reviewed with patient and/or family. Voiced understanding. Scripts Nitrofurantoin Monohyd/M-Cryst (Macrobid 100 mg Capsule) 100 Mg Capsule 1 TAB PO BID, #20 CAP Prov: EMETERIO GARCIA DO 10/19/22 Tramadol HCl (Tramadol HCl) 50 Mg Tablet 50 MG PO Q6H PRN for PAIN, #14 TAB 0 Refills Prov: EMETERIO GARCIA DO 10/19/22 Ondansetron (Ondansetron Odt) 4 Mg Tab.rapdis 4 MG PO Q4H for Nausea/Vomiting, #10 TAB Prov: EMETERIO GARCIA DO 10/19/22 Pantoprazole Sodium (Protonix) 40 Mg Tablet.dr 40 MG PO DAILY, #15 TAB Prov: EMETERIO GARCIA DO 10/19/22 EMETERIO GARCIA DO Oct 19, 2022 19:02
[2022-10-19 19:12] LABS: PROTHROMBIN TIME PATIENT 13.9 SEC (12.2-14.7)
[2022-10-19 19:13] LABS: POTASSIUM 3.3 MMOL/L (3.6-5.0)
[2022-10-19 19:14] LABS: CALCIUM 8.6 MG/DL (8.5-10.1)
[2022-10-19 19:15] LABS: TOTAL PROTEIN 8.1 GM/DL (6.4-8.2)
[2022-10-19 19:17] LABS: BILIRUBIN,TOTAL 0.3 MG/DL (0.1-1.0)
[2022-10-19 19:19] LABS: CREATININE SERUM 0.71 MG/DL (0.60-1.30)
--- NOTE | 2022-10-19 19:19 | Diagnostic Imaging Report ---
INDICATION: Chest pain. Time of Exam: 7:10 PM Comparison is made with prior chest of 04/13/2021. Heart size is normal. Lungs are clear. No infiltrates are seen. There is no effusion or pneumothorax. IMPRESSION: No acute cardiopulmonary process is detected. Dictated by: Dictated on workstation # [id number]
[2022-10-19 19:21] LABS: MAGNESIUM 1.8 MG/DL (1.6-2.4)
[2022-10-19 19:30] LABS: CREATINE KINASE MB 1.3 NG/ML (<6.6)
[2022-10-19] MEDS ORDERED: KETOROLAC 30 MG/ML VIAL IVP ONE (19:30)
[2022-10-19] MEDS ORDERED: PANTOPRAZOLE 40 MG (PROTONIX) VIAL IV ONE (19:30)
[2022-10-19] MEDS ORDERED: NS 100 ML (IVPB) BAG IV ONE (19:30)
[2022-10-19] MEDS ORDERED: IOHEXOL 350 MG/ML 100 ML (OMNIPAQUE 350) VIAL IV ONE (19:30)
[2022-10-19] MEDS ORDERED: HOLD METFORMIN - RECEIVED CONTRAST 20 ML VIAL IV SCH (19:30)
--- NOTE | 2022-10-19 19:58 | Diagnostic Imaging Report ---
INDICATION: CP, ABD PAIN CTA chest, abdomen and pelvis Thin axial sections through the chest, abdomen and pelvis are obtained following intravenous contrast bolus. Multiplanar MIP images were reconstructed and reviewed. All CT scans use one or more of the following dose optimizing techniques: automated exposure control, MA and/or KvP adjustment based on patient size and exam type or iterative reconstruction. The lungs are clear. There are no effusions or pneumothoraces. There are no pulmonary emboli. There is no right ventricular strain. There is no hilar or mediastinal lymphadenopathy The liver appears normal. There are small calculi in the gallbladder. Pancreas is normal. Spleen is not enlarged. GE junction is unremarkable. Kidneys and adrenals appear normal. The appendix is normal. Small bowel is not dilated. Colon is unremarkable. Uterus is present. Adnexa appear normal. Urinary bladder is normal. There is no intraperitoneal free air or free fluid. IMPRESSION: Cholecystolithiasis. No acute abnormality is seen. Dictated by: Dictated on workstation # [id number]
[2022-10-19 20:00] LABS: SMEAR SCAN COMMENT YES
[2022-10-19 20:09] LABS: BILIRUBIN,URINE NEGATIVE (NEGATIVE); CLARITY,URINE CLEAR; COLOR,URINE DARK YELLOW; GLUCOSE, URINE (UA) NEGATIVE (NEGATIVE); KETONES,URINE NEGATIVE (NEGATIVE); LEUKOCYTE ESTERASE ,URINE TRACE (NEGATIVE); NITRITE,URINE NEGATIVE (NEGATIVE); PROTEIN,URINE 1+ (NEGATIVE)
[2022-10-19 20:27] LABS: BACTERIA,URINE MODERATE /HPF; SQUAMOUS EPITHELIAL CELL,UR 25-50 /HPF
[2022-10-19] MEDS ORDERED: ONDA4TAB11 PO (20:47)
[2022-10-19] MEDS ORDERED: PANT40TA2 PO (20:47)
[2022-10-19] MEDS ORDERED: NITR-65 PO (20:47)
[2022-10-19] MEDS ORDERED: TRM50T PO (20:47)
[2022-10-19 21:05] VITALS: BP 123/75
== END 2022-10-19 21:05 | disposition home or self-care (01) ==
LOC: EDUNIT# 18:34 → ER 18:36
DX: K80.20 Calculus of gallbladder without cholecystitis without obstruction (principal); N39.0 Urinary tract infection, site not specified; E66.9 Obesity, unspecified; Z68.42 Body mass index [BMI] 45.0-49.9, adult; Z86.16 Personal history of COVID-19; Z98.890 Other specified postprocedural states
CPT/HCPCS: 36415; 71045; 71275; 74177; 80053; 81000; 82150; 82550; 82553; 83690; 83735; 83874; 83880; 84484; 84703; 85025; 85379; 85610; 85730; 93005; 93041

== ENCOUNTER 2022-10-24 12:30 | Emergency (ER) | payer MEDICAID ==
[~2022-10-24] VITALS: Ht 149 cm; Wt 95.0 kg
[2022-10-24 14:01] LABS: BILIRUBIN,URINE NEGATIVE (NEGATIVE); CLARITY,URINE CLEAR; COLOR,URINE YELLOW; GLUCOSE, URINE (UA) NEGATIVE (NEGATIVE); KETONES,URINE NEGATIVE (NEGATIVE); LEUKOCYTE ESTERASE ,URINE 3+ (NEGATIVE); NITRITE,URINE NEGATIVE (NEGATIVE); PROTEIN,URINE TRACE (NEGATIVE)
[2022-10-24 14:12] LABS: AMORPHOUS SEDIMENT,UR FEW AMOR URATES /LPF; BACTERIA,URINE LARGE /HPF; WBC,URINE 50-100 /HPF
[2022-10-24 14:26] LABS: ALBUMIN 3.8 GM/DL (3.2-4.5); POTASSIUM 3.8 MMOL/L (3.6-5.0)
[2022-10-24 14:27] LABS: CALCIUM 8.8 MG/DL (8.5-10.1)
[2022-10-24 14:29] LABS: BASOPHILS # (AUTO) 0.1 10^3/uL (0.0-0.1); BASOPHILS % (AUTO) 1 % (0-10); HEMOGLOBIN 9.1 g/dL (11.5-16.0)
[2022-10-24 14:30] LABS: BILIRUBIN,TOTAL 0.2 MG/DL (0.1-1.0)
[2022-10-24] MEDS ORDERED: ANTACID SUSP 30 ML UDC (MYLANTA) PO ONE (14:30)
[2022-10-24] MEDS ORDERED: ONDANSETRON 4 MG/2 ML (SDV) Z0FRAN IVP ONE (14:30)
[2022-10-24] MEDS ORDERED: LIDOCAINE 2% VISCOUS 15 ML UDC PO ONE (14:30)
--- NOTE | 2022-10-24 14:30 | ED Abdominal Pain ---
General Chief Complaint: Abdominal/GI Problems Stated Complaint: AB PAIN Nursing Triage Note: PT AMB TO RM PT CO OF ABD PAIN 10/ SINCE TRYING TO HAVE BM YESTERDAY. PT STATES HAS HAD DIARRHEA APPROX 6 X'S. PT STATES HAS N/V X3 TODAY. PT WAS SEEN IN ED FOR ABD PAIN ON LAST TUESDAY. PT IS CURRENTLY TAKING MEDS FOR UTI. Source of Information: Patient, Old Records Exam Limitations: No Limitations History of Present Illness Date Seen by Provider: Oct 24, 2022 Time Seen by Provider: 13:54 Allergies and Home Medications Allergies Coded Allergies: No Known Drug Allergies (Unverified , 11/28/20) Patient Home Medication List Albuterol (Proair Hfa) 8.5 Gm Hfa.aer.ad, (Reported) Entered as Reported by: BOB GREY on 09/23/172250 Amoxicillin (Amoxicillin) 500 Mg Capsule, 1,000 MG PO BID Prescribed by: JOSÉ MIGUEL SIERRA on 04/15/22 224 Benzonatate (Tessalon Perles) 100 Mg Capsule, 200 MG PO TID Prescribed by: EMETERIO GARCIA on 09/09/21 175 Benzonatate (Tessalon Perles) 100 Mg Capsule, 100 MG PO QID PRN for COUGH Prescribed by: Lake Cohen on 05/04/22 1339 Cephalexin (Cephalexin) 500 Mg Tablet, 500 MG PO TID Prescribed by: BRITNI TELLO on 07/08/211956 Doxycycline Hyclate (Doxycycline Hyclate) 100 Mg Tablet, 100 MG PO BID Prescribed by: SELENE ESCALONA on 02/04/212107 Ferrous Sulfate (Iron) 325 Mg Tablet, 325 MG PO DAILY Prescribed by: BRITTA PRAKASH on 02/05/20 165 Guaifenesin/Dextromethorphan (Mucinex Dm ER 1,200-60 mg Tab) 1 Each Tbmp.12hr, 1 EACH PO BID Prescribed by: EMETERIO GARCIA on 09/09/21 175 Hydrocodone/Acetaminophen (Hydrocodone-Acetamin 5-325 mg) 1 Each Tablet, 1 TAB PO Q4H PRN for PAIN-MODERATE (5-7) Prescribed by: KIM AYALA on 07/23/21 1824 Hyoscyamine Sulfate (Levsin-Sl) 0.125 Mg Tab.subl, 0.125 MG SL Q4H Prescribed by: KIM AYALA on 05/11/21 1640 Nitrofurantoin Macrocrystal (Nitrofurantoin) 100 Mg Capsule, 100 MG PO BID Prescribed by: SELENE ESCALONA on 06/14/22 174 Nitrofurantoin Monohyd/M-Cryst (Macrobid 100 mg Capsule) 100 Mg Capsule, 1 TAB PO BID Prescribed by: EMETERIO GARCIA on 10/19/222046 Omeprazole (Omeprazole) 20 Mg Capsule.dr, 20 MG PO BID Prescribed by: JOSÉ MIGUEL SIERRA on 04/13/21 191 Ondansetron (Ondansetron Odt) 8 Mg Tab.rapdis, 8 MG PO Q6H Prescribed by: EMETERIO GARCIA on 07/14/212234 Ondansetron (Ondansetron Odt) 4 Mg Tab.rapdis, 4 MG PO TID Prescribed by: Evaristo Shoemaker on 12/16/21 182 Ondansetron (Ondansetron Odt) 4 Mg Tab.rapdis, 4 MG PO Q4H Prescribed by: EMETERIO GARCIA on 10/19/222046 Pantoprazole Sodium (Protonix) 40 Mg Tablet.dr, 40 MG PO DAILY Prescribed by: YOHANNES RANDOLPH on 11/28/20 1100 Pantoprazole Sodium (Protonix) 40 Mg Tablet.dr, 40 MG PO DAILY Prescribed by: EMETERIO GARCIA on 10/19/222046 Tramadol HCl (Tramadol HCl) 50 Mg Tablet, 50 MG PO Q6H PRN for PAIN Prescribed by: EMETERIO GARCIA on 10/19/222046 Past [place]-Gtpgbm-Xvljbc Hx Patient Social History Tobacco Use?: No Substance use?: No Alcohol Use?: No Pt feels they are or have been: No Immunizations Up To Date Tetanus Booster (TDap): Less than 5yrs Influenza Vaccine Up-to-Date: Yes; Up-to-Date First/Initial COVID19 Vaccinat: 09-22 Second COVID19 Vaccination Anoop: 01-22 Third COVID19 Vaccination Date: 09-22 Seasonal Allergies Seasonal Allergies: No Past Medical History Surgery/Hospitalization HX: HX OF ASTHMA, TUBAL LIGATION /, GERD, ANEMIA, X4 Surgeries: Yes (Umbilical Hernia Repair) Abdominal, Section, Tubal Ligation Respiratory: Yes (COVID-19 IN JULY 2021--NO TREATMENT) Asthma Cardiac: Yes Hypertension Neurological: No Last Menstrual Period: Sep 12, 2022 Reproductive Disorders: Yes Female Reproductive Disorders: Menstrual Problems [employer] 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 pylori) Gastroesophageal Reflux, Ulcer Musculoskeletal: No Endocrine: Yes (OBESE) HEENT: No Cancer: No Psychosocial: No Integumentary: No Blood Disorders: Yes (ANEMIA--HGB IN 7 TO 8 RANGE CHRONICALLY) Adverse Reaction/Blood Tranf: No Family Medical History No Pertinent Family Hx PAST SURGICAL HISTORY: -BILATERAL TUBAL LIGATION - -UMBILICAL HERNIA REPAIR -EGD/COLONOSCOPY 11/[address] RANDOLPH: POSTOPERATIVE DIAGNOSES: Reflux esophagitis stage II, small hiatal hernia 1.5 cm in size, moderate gastritis, poor colonic prep with hard stool throughout the colon, likely indicating constipation at this time, mild small ulcerative plaques of the cecum, which may indicate a mild intermittent colitis. Physical Exam Vital Signs Vital Signs - First Documented 10/24/22 12:35 Temp 37.5 Pulse 87 Resp 16 B/P (MAP) 123/76 (92) Pulse Ox 99 Capillary Refill : Less Than 3 Seconds Height/Weight/BMI Height: 4'9.00" Weight: 205lbs. oz. 92.298495sw; 42.00 BMI Method:Stated Progress/Results/Core Measures Results/Orders Lab Results Laboratory Tests Test 10/24/22 12:45 10/24/22 13:30 Range/Units White Blood Count 10.3 4.3-11.0 10^3/uL Red Blood Count 4.94 3.80-5.11 10^6/uL Hemoglobin 9.1 L 11.5-16.0 g/dL Hematocrit 32 L 35-52 % Mean Corpuscular Volume 65 L 80-99 fL Mean Corpuscular Hemoglobin 18 L 25-34 pg Mean Corpuscular Hemoglobin Concent 28 L 32-36 g/dL Red Cell Distribution Width 19.9 H 10.0-14.5 % Platelet Count 470 H 130-400 10^3/uL Mean Platelet Volume 11.4 9.0-12.2 fL Immature Granulocyte % (Auto) 0 % Neutrophils (%) (Auto) 65 42-75 % Lymphocytes (%) (Auto) 26 12-44 % Monocytes (%) (Auto) 6 0-12 % Eosinophils (%) (Auto) 3 0-10 % Basophils (%) (Auto) 1 0-10 % Neutrophils # (Auto) 6.6 1.8-7.8 10^3/uL Lymphocytes # (Auto) 2.7 1.0-4.0 10^3/uL Monocytes # (Auto) 0.6 0.0-1.0 10^3/uL Eosinophils # (Auto) 0.3 0.0-0.3 10^3/uL Basophils # (Auto) 0.1 0.0-0.1 10^3/uL Immature Granulocyte # (Auto) 0.0 0.0-0.1 10^3/uL Percent Immature Platelet Fraction 6.8 0.0-7.6 % Sodium Level 139 135-145 MMOL/L Potassium Level 3.8 3.6-5.0 MMOL/L Chloride Level 109 H 98-107 MMOL/L Carbon Dioxide Level 19 L 21-32 MMOL/L Anion Gap 11 5-14 MMOL/L Blood Urea Nitrogen 5 L 7-18 MG/DL Creatinine 0.67 0.60-1.30 MG/DL Estimat Glomerular Filtration Rate 115 BUN/Creatinine Ratio 7 Glucose Level 103 70-105 MG/DL Calcium Level 8.8 8.5-10.1 MG/DL Corrected Calcium 9.0 8.5-10.1 MG/DL Total Bilirubin 0.2 0.1-1.0 MG/DL Aspartate Amino Transf (AST/SGOT) 13 5-34 U/L Alanine Aminotransferase (ALT/SGPT) 9 0-55 U/L Alkaline Phosphatase 71 40-136 U/L C-Reactive Protein High Sensitivity 1.09 H 0.00-0.50 MG/DL Total Protein 8.0 6.4-8.2 GM/DL Albumin 3.8 3.2-4.5 GM/DL Lipase 23 8-78 U/L Urine Color YELLOW Urine Clarity CLEAR Urine pH 6.0 5-9 Urine Specific [place] >=1.030 1.016-1.022 Urine Protein TRACE H NEGATIVE Urine Glucose (UA) NEGATIVE NEGATIVE Urine Ketones NEGATIVE NEGATIVE Urine Nitrite NEGATIVE NEGATIVE Urine Bilirubin NEGATIVE NEGATIVE Urine Urobilinogen 0.2 < = 1.0 MG/DL Urine Leukocyte Esterase 3+ H NEGATIVE Urine RBC (Auto) TRACE-I H NEGATIVE Urine RBC 5-10 H /HPF Urine WBC 50-100 H /HPF Urine Squamous Epithelial Cells 10-25 H /HPF Urine Crystals PRESENT H /LPF Urine Amorphous Sediment FEW DAYAMI URATES H /LPF Urine Bacteria LARGE H /HPF Urine Casts NONE /LPF Urine Mucus NEGATIVE /LPF Urine Culture Indicated YES My Orders Orders - JOSÉ MIGUEL FLYNN MD Ua Culture If Indicated (10/24/22 13:54) Urine Culture (10/24/22 13:30) Ondansetron Injection (Zofran Injectio (10/24/22 14:30) Lidocaine 2% Viscous 15 Ml (Xylocaine Vi (10/24/22 14:30) Antacid Suspension (Mylanta Suspension (10/24/22 14:30) Cbc With Automated Diff (10/24/22 14:18) Comprehensive Metabolic Panel (10/24/22 14:18) Hs C Reactive Protein (10/24/22 14:18) Lipase (10/24/22 14:18) Ed Iv/Invasive Line Start (10/24/22 14:31) Lactated Ringers (Lr 1000 Ml Iv Solution (10/24/22 14:45) Ceftriaxone 1 Gram Iv (10/24/22 15:45) Hydrocodone/Apap 5/325 Tablet (Lortab 5 (10/24/22 15:45) Medications Given in ED Current Medications Medications Dose Ordered Sig/Giana Route Start Time Stop Time Status Last Admin Dose Admin Al Hydrox/Mg Hydrox/Simethicone 30 ml ONCE ONCE PO 10/24/22 14:30 10/24/22 14:31 DC 10/24/22 14:39 30 ML Lactated Ringer's 1,000 ml @ 0 mls/hr Q0M ONCE IV 10/24/22 14:45 10/24/22 14:46 DC 10/24/22 14:39 1,000 MLS/HR Lidocaine HCl 15 ml ONCE ONCE PO 10/24/22 14:30 10/24/22 14:31 DC 10/24/22 14:39 15 ML Ondansetron HCl 8 mg ONCE ONCE IVP 10/24/22 14:30 10/24/22 14:31 DC 10/24/22 14:39 8 MG Vital Signs/I&O 10/24/22 12:35 Temp 37.5 Pulse 87 Resp 16 B/P (MAP) 123/76 (92) Pulse Ox 99 Blood Pressure Mean: 92 Departure Impression Primary Impression: Upper abdominal pain Additional Impressions: Gastroenteritis Gallstone Qualified Codes: K80.20 - Calculus of gallbladder without cholecystitis without obstruction Urinary tract infection Qualified Codes: N39.0 - Urinary tract infection, site not specified Disposition: 01 HOME, SELF-CARE Condition: Improved Departure-Patient Inst. Decision time for Depature: 15:48 Referrals: [facility] [place] (PCP/Family) Primary Care Physician Patient Instructions: Abdominal Pain, Adult ED, Gallstones ED, Urinary Tract Infection, Adult ED Add. Discharge Instructions: Continue taking the medications prescribed on October 19. You may use Tylenol (acetaminophen) up to 1000 mg every 6 hours as needed for pain. Add tramadol (Ultram) as prescribed previously for pain not controlled well by Tylenol. Avoid ibuprofen or naproxen as those medications may worsen stomach irritation. You have gallstones. Gallstones may be aggravated by fatty, oily or greasy foods. Avoid these foods. Because your pain improved with the lidocaine solution and Mylanta, you likely have some gastritis. Please continue the Protonix (pantoprazole) prescribed on October 19. Add Pepcid (famotidine) as prescribed for additional antacid therapy. Your urinary tract infection does not appear to be improving despite taking the nitrofurantoin (Macrobid). Please add cefdinir as prescribed and follow-up with your primary care office after 48 hours to review urine culture results. This will help them determine the best antibiotic to treat you with for this infection. You may continue using Zofran (ondansetron) as prescribed for nausea or vomiting. Drink plenty of noncarbonated clear liquids to stay well-hydrated. Avoid the following: Eating large meals, eating close to bedtime, caffeine, carbonation, citrus fruits and juices, tomato products, alcohol, tobacco, chocolate, mints, spicy foods, NSAID medications such as ibuprofen or naproxen, or anything else you know irritate your stomach. Follow-up with your primary care doctor as soon as possible. Discuss further work-up which may include referral to a surgeon for endoscopy and discussion about removal of your gallbladder. Return to the ER if you have worsening symptoms despite following these instructions. All discharge instructions reviewed with patient and/or family. Voiced understanding. Scripts Cefdinir (Cefdinir) 300 Mg Capsule 300 MG PO BID, #14 CAP Prov: JOSÉ MIGUEL FLYNN MD 10/24/22 Ondansetron (Ondansetron Odt) 4 Mg Tab.rapdis 4 MG SL Q4H PRN for NAUSEA/VOMITING, #10 TAB Prov: JOSÉ MIGUEL FLYNN MD 10/24/22 Famotidine (Pepcid) 20 Mg Tablet 20 MG PO BID, #30 TAB Prov: JOSÉ MIGUEL FLYNN MD 10/24/22 JOSÉ MIGUEL FLYNN MD Oct 24, 2022 14:30
[2022-10-24 14:31] LABS: EOSINOPHILS # (AUTO) 0.3 10^3/uL (0.0-0.3); EOSINOPHILS % (AUTO) 3 % (0-10); HEMATOCRIT 32 % (35-52); LYMPHOCYTES # (AUTO) 2.7 10^3/uL (1.0-4.0); LYMPHOCYTES % (AUTO) 26 % (12-44); MEAN CORPUSCULAR HEMOGLOBIN 18 pg (25-34); MEAN CORPUSCULAR HGB CONC 28 g/dL (32-36); MEAN CORPUSCULAR VOLUME 65 fL (80-99); MEAN PLATELET VOLUME 11.4 fL (9.0-12.2); MONOCYTES # (AUTO) 0.6 10^3/uL (0.0-1.0); MONOCYTES % (AUTO) 6 % (0-12); NEUTROPHILS # (AUTO) 6.6 10^3/uL (1.8-7.8); NEUTROPHILS % (AUTO) 65 % (42-75); PLATELET COUNT 470 10^3/uL (130-400); WHITE BLOOD COUNT 10.3 10^3/uL (4.3-11.0)
[2022-10-24 14:32] LABS: CREATININE SERUM 0.67 MG/DL (0.60-1.30)
[2022-10-24] MEDS ORDERED: LACTATED RINGERS 1,000 ML IV ONE (14:45)
[2022-10-24] MEDS ORDERED: cefTRIAXone IV/IM 1,000 MG in NS (IVPB) 50 ML IV STA (15:45)
[2022-10-24] MEDS ORDERED: HYDROcodone/APAP 5 MG/325 MG (LORTAB) TAB PO ONE (15:45)
[2022-10-24] MEDS ORDERED: CEFD300C3 PO (15:54)
[2022-10-24] MEDS ORDERED: FAMO-119 PO (15:54)
[2022-10-24] MEDS ORDERED: ONDA4TAB11 SL (15:54)
[2022-10-24 16:05] VITALS: BP 118/68
== END 2022-10-24 16:05 | disposition home or self-care (01) ==
LOC: EDUNIT# 12:30 → ER 12:32
DX: K52.9 Noninfective gastroenteritis and colitis, unspecified (principal); K80.20 Calculus of gallbladder without cholecystitis without obstruction; N39.0 Urinary tract infection, site not specified; E66.9 Obesity, unspecified; Z68.41 Body mass index [BMI] 40.0-44.9, adult; Z86.16 Personal history of COVID-19; Z98.890 Other specified postprocedural states
CPT/HCPCS: 36415; 80053; 81000; 83690; 85025; 86141; 87088

== ENCOUNTER 2022-11-04 05:38 | Outpatient (CLI) | payer MEDICAID ==
[~2022-11-04] VITALS: Ht 149.9 cm; Wt 103.9 kg
[~2022-11-04 05:38] MED LIST changes: +FAMO-119 PO; +ONDA4TAB11 SL
== END 2022-11-04 14:29 | disposition home or self-care (01) ==
LOC: PREOP 05:38
PROVIDERS: ATTEND Surgery
DX: Z01.818 Encounter for other preprocedural examination (principal)

== ENCOUNTER 2022-11-08 18:13 | Emergency (ER) | payer MEDICAID ==
[~2022-11-08] VITALS: Ht 150 cm; Wt 103.9 kg
--- NOTE | 2022-11-08 18:53 | ED Upper Extremity ---
General Chief Complaint: Upper Extremity Stated Complaint: RIGHT ELBOW/ARM PAIN Nursing Triage Note: PT AMBULATE TO TRIAGE WITH C/O RIGHT ELBOW PAIN STARTING THIS MORNING. PT REPORTS WAKING WITH RIGHT ELBOW PAIN. PT DENIES INJURY. PT REPORTS TAKING TYLENOL 650MG AT 1400. Source: patient Exam Limitations: no limitations History of Present Illness Date Seen by Provider: November 08, 2022 Time Seen by Provider: 18:48 Initial Comments Patient is a 37-year-old female who presents ED with right medial elbow pain. Pain started this morning when she woke up. Denies any trauma. No redness or or bruising. 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 Every time she turns a knob causes severe pain in her elbow. Denies anything for pain. Denies fever, chills, shoulder pain, chest pain or shortness of breath. She states she has some pain on the right little and ring finger. No history of similar symptoms Allergies and Home Medications Allergies Coded Allergies: No Known Drug Allergies (Unverified , 11/28/20) Patient Home Medication List Home Medication List Reviewed: Yes Naproxen (Naproxen) 500 Mg Tablet, 500 MG PO Q12H Prescribed by: BRITNI TELLO on 11/08/22 1854 Discontinued Medications Albuterol (Proair Hfa) 8.5 Gm Hfa.aer.ad, (Reported) Discontinued Reason: No Longer Taking Entered as Reported by: BOB GREY on 09/23/17 2251 Amoxicillin (Amoxicillin) 500 Mg Capsule, 1,000 MG PO BID Discontinued Reason: No Longer Taking Prescribed by: JOSÉ MIGUEL SIERRA on 04/15/22 2248 Benzonatate (Tessalon Perles) 100 Mg Capsule, 200 MG PO TID Discontinued Reason: No Longer Taking Prescribed by: EMETERIO GARCIA on 09/09/21 1750 Benzonatate (Tessalon Perles) 100 Mg Capsule, 100 MG PO QID PRN for COUGH Discontinued Reason: No Longer Taking Prescribed by: Lake Cohen on 05/04/22 1339 Cefdinir (Cefdinir) 300 Mg Capsule, 300 MG PO BID Discontinued Reason: No Longer Taking Prescribed by: JOSÉ MIGUEL SIERRA on 10/24/22 1554 Cephalexin (Cephalexin) 500 Mg Tablet, 500 MG PO TID Discontinued Reason: No Longer Taking Prescribed by: BRITNI TELLO on 07/08/211956 Doxycycline Hyclate (Doxycycline Hyclate) 100 Mg Tablet, 100 MG PO BID Discontinued Reason: No Longer Taking Prescribed by: SELENE ESCALONA on 02/04/212107 Famotidine (Pepcid) 20 Mg Tablet, 20 MG PO BID Discontinued Reason: No Longer Taking Prescribed by: JOSÉ MIGUEL SIERRA on 10/24/22 1554 Ferrous Sulfate (Iron) 325 Mg Tablet, 325 MG PO DAILY Discontinued Reason: No Longer Taking Prescribed by: BRITTA PRAKASH on 02/05/20 1650 Guaifenesin/Dextromethorphan (Mucinex Dm ER 1,200-60 mg Tab) 1 Each Tbmp.12hr, 1 EACH PO BID Discontinued Reason: No Longer Taking Prescribed by: EMETERIO GARCIA on 09/09/21 1750 Hydrocodone/Acetaminophen (Hydrocodone-Acetamin 5-325 mg) 1 Each Tablet, 1 TAB PO Q4H PRN for PAIN-MODERATE (5-7) Discontinued Reason: No Longer Taking Prescribed by: KIM AYALA on 07/23/21 1824 Hyoscyamine Sulfate (Levsin-Sl) 0.125 Mg Tab.subl, 0.125 MG SL Q4H Discontinued Reason: No Longer Taking Prescribed by: KIM AYALA on 05/11/21 1640 Nitrofurantoin Macrocrystal (Nitrofurantoin) 100 Mg Capsule, 100 MG PO BID Discontinued Reason: No Longer Taking Prescribed by: SELENE ESCALONA on 06/14/22 1742 Nitrofurantoin Monohyd/M-Cryst (Macrobid 100 mg Capsule) 100 Mg Capsule, 1 TAB PO BID Discontinued Reason: No Longer Taking Prescribed by: EMETERIO GARCIA on 10/19/22 204 Omeprazole (Omeprazole) 20 Mg Capsule.dr, 20 MG PO BID Discontinued Reason: No Longer Taking Prescribed by: JOSÉ MIGUEL SIERRA on 04/13/21 191 Ondansetron (Ondansetron Odt) 8 Mg Tab.rapdis, 8 MG PO Q6H Discontinued Reason: No Longer Taking Prescribed by: EMETERIO GARCIA on 07/14/21 2235 Ondansetron (Ondansetron Odt) 4 Mg Tab.rapdis, 4 MG PO TID Discontinued Reason: No Longer Taking Prescribed by: Evaristo Shoemaker on 12/16/21 1829 Ondansetron (Ondansetron Odt) 4 Mg Tab.rapdis, 4 MG PO Q4H Discontinued Reason: No Longer Taking Prescribed by: EMETERIO GARCIA on 10/19/222046 Ondansetron (Ondansetron Odt) 4 Mg Tab.rapdis, 4 MG SL Q4H PRN for NAUSEA/VOMITING Discontinued Reason: No Longer Taking Prescribed by: JOSÉ MIGUEL SIERRA on 10/24/22 1554 Pantoprazole Sodium (Protonix) 40 Mg Tablet.dr, 40 MG PO DAILY Discontinued Reason: No Longer Taking Prescribed by: YOHANNES RANDOLPH on 11/28/20 1100 Pantoprazole Sodium (Protonix) 40 Mg Tablet.dr, 40 MG PO DAILY Discontinued Reason: No Longer Taking Prescribed by: EMETERIO GARCIA on 10/19/222046 Tramadol HCl (Tramadol HCl) 50 Mg Tablet, 50 MG PO Q6H PRN for PAIN Discontinued Reason: No Longer Taking Prescribed by: EMETERIO GARCIA on 10/19/222046 Review of Systems Constitutional: No chills, No diaphoresis, No malaise, No weakness EENTM: No hearing loss Respiratory: No cough, No dyspnea on exertion Cardiovascular: No chest pain Gastrointestinal: No abdominal pain, No diarrhea, No nausea, No vomiting Genitourinary: No decreased output, No discharge Musculoskeletal: No back pain; joint pain, joint swelling, muscle pain Skin: No change in color All Other Systems Reviewed Negative Unless Noted: Yes Past [place]-Pcbbuz-Hsyrgl Hx Patient Social History Tobacco Use?: No Smoking Status: Former Smoker Smokeless Tobacco Frequency: Never a User Use of E-Cig and/or Vaping dev: Yes E-Cig or Vaping type used: Nicotine Use of E-Cig and/or Vaping Braulio: Current Everyday User Alcohol Use?: No Pt feels they are or have been: No Immunizations Up To Date Tetanus Booster (TDap): Less than 5yrs First/Initial COVID19 Vaccinat: 09-22 Second COVID19 Vaccination Anoop: 01-22 Third COVID19 Vaccination Date: 09-22 Seasonal Allergies Seasonal Allergies: No Past Medical History Surgery/Hospitalization HX: HX OF ASTHMA, TUBAL LIGATION /, GERD, ANEMIA, X4 Surgeries: Yes (Umbilical Hernia Repair) Abdominal, Section, Tubal Ligation Respiratory: Yes (COVID-19 IN JULY 2021--NO TREATMENT) Asthma Cardiac: Yes Hypertension Neurological: No Reproductive Disorders: Yes Female 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 pylori) Gastroesophageal Reflux, Ulcer Musculoskeletal: No Endocrine: No HEENT: No Cancer: No Psychosocial: No Integumentary: No Blood Disorders: Yes (ANEMIA--HGB IN 7 TO 8 RANGE CHRONICALLY) Adverse Reaction/Blood Tranf: No Family Medical History No Pertinent Family Hx PAST SURGICAL HISTORY: -BILATERAL TUBAL LIGATION - -UMBILICAL HERNIA REPAIR -EGD/COLONOSCOPY 11/[address] RANDOLPH: POSTOPERATIVE DIAGNOSES: Reflux esophagitis stage II, small hiatal hernia 1.5 cm in size, moderate gastritis, poor colonic prep with hard stool throughout the colon, likely indicating constipation at this time, mild small ulcerative plaques of the cecum, which may indicate a mild intermittent colitis. Physical Exam Vital Signs Vital Signs - First Documented 11/08/22 18:26 Temp 36.9 Pulse 77 Resp 17 B/P (MAP) 148/75 (99) O2 Delivery Room Air Capillary Refill : Less Than 3 Seconds Height, Weight, BMI Height: 4'9.00" Weight: 205lbs. oz. 92.400534tp; 46.00 BMI Method:Stated General Appearance: WD/WN, no apparent distress HEENT: PERRL/EOMI, normal ENT inspection, TMs normal, pharynx normal Neck: non-tender, full range of motion, supple, normal inspection Cardiovascular: regular rate, rhythm, no edema, no gallop, no JVD Respiratory: chest non-tender, lungs clear, normal breath sounds, no respiratory distress, no accessory muscle use Gastrointestinal: normal bowel sounds, non tender, soft, no organomegaly Elbow/Forearm: Right, bone tenderness (Right medial epicondyle tenderness. No erythema or warmth. 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, no motor/sensory deficits, alert, normal mood/affect, oriented x 3 Progress/Results/Core Measures Results/Orders My Orders Orders - CABA,VIVIANA A PA Ibuprofen Tablet (Motrin Tablet) (11/08/22 19:00) Medications Given in ED Current Medications Medications Dose Ordered Sig/Giana Route Start Time Stop Time Status Last Admin Dose Admin Ibuprofen 600 mg ONCE ONCE PO 11/08/22 19:00 11/08/22 19:01 11/08/22 18:54 600 MG Vital Signs/I&O 11/08/22 18:26 Temp 36.9 Pulse 77 Resp 17 B/P (MAP) 148/75 (99) O2 Delivery Room Air Blood Pressure Mean: 99 Departure Communication (PCP) Patient is a 37-year-old female who presents ED with right medial elbow pain. No specific trauma. On exam no swelling, redness or bruising. Some numbness and tingling on the ulnar side of the right hand. 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 Neurovascular intact. Pain with resistance to flexion, pronation suggesting concern for medial epicondylitis. Patient was given dose of ibuprofen. Recommend anti-inflammatories, rest, ice and elbow strap. Recommend orthopedic outpatient follow-up and 2 weeks for further evaluation as needed. Avoid any exacerbating factors. Return precaution were discussed Impression Primary Impression: Epicondylitis Disposition: HOME, SELF-CARE Condition: Stable Departure-Patient Inst. Decision time for Depature: 18:53 Referrals: [facility] [place] (PCP/Family) Primary Care Physician GENARO HARPER MD Patient Instructions: Medial Epicondylitis (DC) Add. Discharge Instructions: Recommend following up with orthopedic for further evaluation. Recommend wearing a tennis elbow strap to help support. Ice and anti-inflammatories. Orthopedic follow-up in 2 to 3 weeks for further evaluation. Recommend rest avoiding any exacerbating movement All discharge instructions reviewed with patient and/or family. Voiced understa nding. Scripts Naproxen (Naproxen) 500 Mg Tablet 500 MG PO Q12H for 10 Days, #20 TAB Prov: VIVIANA CABA 11/08/22 Work/School Note: Work Release Form Date Seen in the Emergency Department: November 08, 2022 Return to Work: November 11, 2022 VIVIANA CABA November 08, 2022 18:53
[2022-11-08] MEDS ORDERED: NAPR-915 PO (18:54)
[2022-11-08 19:00] VITALS: BP 148/75
[2022-11-08] MEDS ORDERED: IBUPROFEN 600 MG (MOTRIN) TAB PO ONE (19:00)
== END 2022-11-08 19:01 | disposition home or self-care (01) ==
LOC: EDUNIT# 18:13 → ER 18:15
DX: M77.01 Medial epicondylitis, right elbow (principal); F17.290 Nicotine dependence, other tobacco product, uncomplicated; Z86.16 Personal history of COVID-19
CPT/HCPCS: 99283

== ENCOUNTER 2022-11-15 08:01 | Day surgery (SDC) | payer MEDICAID ==
[~2022-11-15] VITALS: Ht 149.9 cm; Wt 103.9 kg
[~2022-11-15 08:01] MED LIST changes: +NAPR-915 PO
[2022-11-15 08:38] VITALS: BP 126/76
--- NOTE | 2022-11-15 08:39 | Progress Note-Pre Operative ---
Pre-Operative Progress Note Date of Available H&P: November 02, 2022 Date H&P Reviewed: November 15, 2022 Time H&P Reviewed: 08:35 History & Physical: H&P Reviewed, Patient Examed, No changes noted Pre-Operative Diagnosis: Epigastric pain, intractable diarrhea BERT BIGGS DO November 15, 2022 08:39
[2022-11-15] MEDS ORDERED: LACTATED RINGERS 1,000 ML IV STA (08:43)
[2022-11-15] MEDS ORDERED: HURRICAINE EXT TUBE (BENZOCAINE) XX PRN (08:45)
[2022-11-15] MEDS ORDERED: MIDAZOLAM 2 MG/2 ML (VERSED) VIAL ONE (09:45)
[2022-11-15] MEDS ORDERED: ONDANSETRON 4 MG/2 ML (SDV) Z0FRAN ONE (09:45)
[2022-11-15] MEDS ORDERED: PROPOFOL INJECTION 50 ML IV ONE (09:45)
[2022-11-15 10:10] VITALS: BP 97/54
--- NOTE | 2022-11-15 10:11 | Progress Note-Post Operative ---
Post-Operative Progess Note Surgeon (s)/[employer] (s) Surgeon BERT BIGGS DO [employer]: none Pre-Operative Diagnosis Epigastric pain, intractable diarrhea Post-Operative Diagnosis Gastritis Hiatal hernia Poor prep int hemorrhoids Procedure & Operative Findings Date of Procedure 11/15/22 Procedure Performed/Findings EGD with biopsy Colonoscopy PROCEDURE NOTE: After informed consent was obtained, the patient was brought to the endoscopy suite, placed in bed in left lateral decubitus position. She was administered IV sedation by the STEAM CONDITIONER FILLING who then monitored vitals the entire time, heart rate, blood pressure and pulse ox and the scope was inserted down the mouth through the esophagus into the stomach. On the way down, noted some mild esophagitis, took a picture, pushed into the stomach, pushed past the antrum into the duodenum. Duodenum looked good. Pulled back and did a biopsy of antrum, then retroflexed the scope, saw small Grade II AFS hiatal hernia, took a picture of this and then pulled the scope into the GE junction and then did a biopsy of the GE junction. Pushed the scope back into the stomach, suctioned all the air out of the stomach. At this point pulled the scope up the esophagus and out the mouth. Switched camera, switched gloves, went down below and started the colonoscopy. Pushed all the way to about 150 cm and pushed into the cecum, attempted to take a picture of appendiceal orifice; unfortunately all throughout the colon there was retained fecal material. I documented with pictures, but unable to clear all of it. I did note the ileocecal valve and then slowly withdrew the scope insufflating to look circumferentially at the tidwell starting in the cecum, up the ascending colon to the hepatic flexure, then down the transverse colon, splenic flexure, into the descending colon down into the sigmoid. I did not see any inflammation or ulcers or any reason for her constant diarrhea. Finally into the rectal vault and then took apicture of the internal hemorrhoids as I removed the scope. The patient tolerated the procedure and she recovered in the endoscopy suite. Recommended for repeat colonoscopy in 8 years at age 45, for routine screening. Anesthesia Type IV sedation by Anesthesia Estimated Blood Loss Estimated blood loss (mL): scant Specimens/Packing Specimens Removed antral bx body of stomach bx GE jxn bx BERT BIGGS DO November 15, 2022 10:11
--- NOTE | 2022-11-15 10:12 | Endoscopy Discharge Instruct ---
Endo Procedure/Findings Findings 1.: Gastritis 2.: Hiatal Hernia 3.: Internal Hemorrhoids Discharge Instructions - Activity: You might feel a little sleepy until tomorrow. This is due to the medicine you received to relax you. Until tomorrow, you should: NOT drive a car, operate machinery or power tools. NOT drink any alcoholic beverages. NOT make any important decisions or sign importortant papers. Do not return to work until tomorrow, unless otherwise instructed. Resume previous activities tomorrow. Diet: Start by taking liquids. If you tolerate liquids, advance to solid food. 1.: EGD in 3 years 2.: Other Recommendation (colonoscopy at age 45) Notify Physician - If you experience excessive bleeding, unusual abdominal pain, fever, or chest pain, contact your doctor immediately. BERT BIGGS DO November 15, 2022 10:12
[2022-11-15 10:15] VITALS: BP 95/53
[2022-11-15 10:20] VITALS: BP 96/51
[2022-11-15 10:25] VITALS: BP 101/50
--- NOTE | 2022-11-15 10:36 | Anesthesia-General Post-Op ---
MAC Patient Condition Mental Status/LOC: Same as Preop Cardiovascular: Satisfactory Nausea/Vomiting: Absent Respiratory: Satisfactory Pain: Controlled Complications: Absent Post Op Complications Complications None Follow Up Care/Instructions Patient Instructions None needed. Anesthesiology Discharge Order Discharge Order Patient is doing well, no complaints, stable vital signs, no apparent adverse anesthesia problems. No complications reported per nursing. ALESIA WEBSTER DO November 15, 2022 10:36
[2022-11-15 10:42] VITALS: BP 101/50
== END 2022-11-15 11:03 | disposition home or self-care (01) ==
LOC: ENDO 08:01
PROVIDERS: ATTEND Surgery
DX: K29.50 Unspecified chronic gastritis without bleeding (principal); B96.81 Helicobacter pylori [H. pylori] as the cause of diseases classified elsewhere; K44.9 Diaphragmatic hernia without obstruction or gangrene; K64.8 Other hemorrhoids; K21.00 Gastro-esophageal reflux disease with esophagitis, without bleeding; K52.9 Noninfective gastroenteritis and colitis, unspecified; E66.9 Obesity, unspecified; K80.20 Calculus of gallbladder without cholecystitis without obstruction; Z68.42 Body mass index [BMI] 45.0-49.9, adult; Z86.19 Personal history of other infectious and parasitic diseases
CPT/HCPCS: 84703; 88305

== ENCOUNTER 2023-05-04 14:12 | Emergency (ER) | payer MEDICAID ==
--- NOTE | 2023-05-04 14:36 | ED Cough/URI ---
General Chief Complaint: Cough/Cold/Flu Symptoms Stated Complaint: COUGH | CONGESTION | FEVER 101 Nursing Triage Note: PT STATES HAS HAS HAD FEVERS, COUGH AND CONGESTION FOR APPROX 2 WEEKS STATES WAS SEEN AT [facility] AND GIVEN A COLD MEDICATION Source: patient Exam Limitations: no limitations History of Present Illness Date Seen by Provider: May 04, 2023 Time Seen by Provider: 14:33 Initial Comments Patient is a 38-year-old female who presents the ED for fever cough congestion for about 2 weeks. She states 2 weeks ago she was seen at [facility] for this cough and upper respiratory symptoms nasal congestion sinus pressure sore throat. They did not swab her. They gave her doxycycline, loratadine and something for for her cough. No improvement of symptoms. She reports greenish sputum production with her cough. She reports some rib tightness and chest tightness with the cough. History of asthma. Does not have breathing treatments at home. She reports wheezing. She had a temperature of 101 today. She denies any vomiting, diarrhea, pain with urination frequent urination headache or dizziness. Denies history of coronary artery disease, CHF. Denies a leg swelling, abdominal pain, sore throat, ear pain. She did have some itching in her throat but that has improved. Patient has been taken anti-inflammatories Allergies and Home Medications Allergies Coded Allergies: No Known Drug Allergies (Unverified , 11/28/20) Patient Home Medication List Home Medication List Reviewed: Yes Albuterol Sulfate (Ventolin Hfa) 1 Puff Puff, 2 PUFF INH Q4H Prescribed by: BRITNI TELLO on 05/04/23 1549 Naproxen (Naproxen) 500 Mg Tablet, 500 MG PO Q12H Prescribed by: BRITNI TELLO on 11/08/22 1854 Prednisone (Prednisone) 50 Mg Tab, 50 MG PO DAILY Prescribed by: BRITNI TELLO on 05/04/23 1549 Review of Systems Review of Systems Constitutional: No chills, No diaphoresis, No malaise, No weakness EENTM: No ear pain, No blurred vision, No double vision Respiratory: cough; No dyspnea on exertion; short of breath Cardiovascular: No chest pain Gastrointestinal: No abdominal pain, No diarrhea, No nausea, No vomiting Genitourinary: No decreased output, No discharge Musculoskeletal: No back pain, No joint pain Skin: No change in color, No change in hair/nails Psychiatric/Neurological: Denies Anxiety, Denies Depressed All Other Systems Reviewed Negative Unless Noted: Yes Past Gyscfyc-Yaihxa-Tvrqwr Hx Patient Social History Tobacco Use?: Yes Tobacco type used: Cigarettes Smoking Status: Current Everyday Smoker Substance use?: No Alcohol Use?: No Pt feels they are or have been: No Immunizations Up To Date Tetanus Booster (TDap): Less than 5yrs First/Initial COVID19 Vaccinat: 09-22 Second COVID19 Vaccination Anoop: 01-22 Third COVID19 Vaccination Date: 09-22 Seasonal Allergies Seasonal Allergies: No Past Medical History Surgery/Hospitalization HX: HX OF ASTHMA, TUBAL LIGATION /, GERD, ANEMIA, X4 Surgeries: Yes (Umbilical Hernia Repair) Abdominal, Section, Tubal Ligation Respiratory: Yes (COVID-19 IN JULY 2021--NO TREATMENT) Asthma Cardiac: Yes Hypertension Neurological: No Reproductive Disorders: Yes Female Reproductive Disorders: Menstrual Problems [employer]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 pylori) Gastroesophageal Reflux, Ulcer Musculoskeletal: No Endocrine: No HEENT: No Cancer: No Psychosocial: No Integumentary: No Blood Disorders: Yes (ANEMIA--HGB IN 7 TO 8 RANGE CHRONICALLY) Adverse Reaction/Blood Tranf: No Family Medical History No Pertinent Family Hx PAST SURGICAL HISTORY: -BILATERAL TUBAL LIGATION - -UMBILICAL HERNIA REPAIR -EGD/COLONOSCOPY 11/[address] RANDOLPH: POSTOPERATIVE DIAGNOSES: Reflux esophagitis stage II, small hiatal hernia 1.5 cm in size, moderate gastritis, poor colonic prep with hard stool throughout the colon, likely indicating constipation at this time, mild small ulcerative plaques of the cecum, which may indicate a mild intermittent colitis. Physical Exam Vital Signs - First Documented 05/04/23 05/04/23 14:20 15:02 Temp 36.9 Pulse 79 Resp 18 B/P (MAP) 158/95 (116) Pulse Ox 100 O2 Delivery Room Air Capillary Refill : Less Than 3 Seconds Height: 4'9.00" Weight: 205lbs. oz. 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, no motor/sensory deficits, alert, normal mood/affect, oriented x 3 Skin: normal color, warm/dry Progress/Results/Core Measures Suspected Sepsis SIRS Temperature: Pulse: 79 Respiratory Rate: 18 Blood Pressure 158 /95 Mean: 116 Results/Orders Lab Results Laboratory Tests Test 05/04/23 14:24 Range/Units Influenza Type A (RT-PCR) Not Detected Not Detecte Influenza Type B (RT-PCR) Not Detected Not Detecte SARS-CoV-2 RNA (RT-PCR) Not Detected Not Detecte My Orders Orders - VIVIANA CABA Covid 19 Inhouse Test (05/04/23 14:22) Influenza A And B By Pcr (05/04/23 14:22) Chest 1 View, Ap/Pa Only (05/04/23 14:31) Prednisone Tablet (Prednisone Tablet) (05/04/23 14:45) Ipratropium/Albuterol Inh Soln (Ipratrop (05/04/23 14:45) Svn Small Volume Nebulizer (05/04/23 14:31) Prednisone Tablet (Prednisone Tablet) (05/04/23 15:01) Albuterol Pre-Mix Nebs (Rt) (Albuterol (05/04/23 15:30) Svn Small Volume Nebulizer (05/04/23 15:25) Ekg Tracing (05/04/23 15:26) Medications Given in ED Current Medications Medications Dose Ordered Sig/Giana Route Start Time Stop Time Status Last Admin Dose Admin Albuterol Sulfate 2.5 mg ONCE ONCE INH 05/04/23 15:30 05/04/23 15:31 DC 05/04/23 15:35 2.5 MG Albuterol/ Ipratropium 3 ml ONCE ONCE INH 05/04/23 14:45 05/04/23 14:46 DC 05/04/23 14:59 3 ML Prednisone 50 mg ONCE ONCE PO 05/04/23 14:45 05/04/23 14:46 DC 05/04/23 14:59 50 MG Vital Signs/I&O 05/04/23 05/04/23 05/04/23 05/04/23 14:20 15:02 15:35 16:02 Temp 36.9 36.9 Pulse 79 79 Resp 18 18 B/P (MAP) 158/95 (116) 158/95 Pulse Ox 100 99 99 99 O2 Delivery Room Air Room Air Room Air Capillary Refill : Less Than 3 Seconds Blood Pressure Mean: 116 ECG Comment Sinus rhythm, minimal voltage criteria for LVH. 82 bpm, QRS duration 77 MS, QTc 382 MS. Departure Communication (PCP) 38-year-old female with a history of asthma smoking presents ED with cough shortness of breath and chest tightness. No known cardiac history. Vital signs stable. Recently treated for upper respiratory infection with doxycycline 2 weeks ago. No improvement. She is afebrile. She reports temperature at home. Differential diagnosis viral syndrome, bronchitis, pneumonia. COVID influenza were ordered. Chest x-ray was ordered. She did receive a DuoNeb breathing treatment initially on arrival. Some diminished lung sounds without significant wheezing. No stridor. She denies any vomiting or diarrhea. She does not appear dry. COVID influenza was negative. Chest x-ray was negative for pneumonia, pneumothorax. She did get relief after DuoNeb of the chest tightness. Chest tightness did occur again during her stay. She received albuterol treatment with significant improvement. She states she feels much better. She is requesting an inhaler which she does not have with her history of asthma. Will discharge short burst steroids. She did receive a dose of prednisone here 50 mg before discharge. If any worsening symptoms such as chest pain or shortness of breath return back to ED. Suspect viral with associated bronchitis. Discussed smoking sensation. Follow-up with your PCP in 1 to 2 d ays for reevaluation Impression Primary Impression: Bronchitis Disposition: 01 HOME, SELF-CARE Condition: Stable Departure-Patient Inst. Decision time for Depature: 15:49 Referrals: [facility] (PCP/Family) Primary Care Physician Patient Instructions: Bronchitis, Adult ED Scripts Albuterol Sulfate (VENTOLIN HFA) 1 Puff Puff 2 PUFF INH Q4H, #1 EA 1 PUFF = 90 MCG Prov: VIVIANA CABA 05/04/23 Prednisone (Prednisone) 50 Mg Tab 50 MG PO DAILY for 4 Days, #4 TAB Prov: VIVIANA CABA 05/04/23 VIVIANA CABA May 04, 2023 14:36
[2023-05-04] MEDS ORDERED: RT-Ipratropium/Albuterol NEB 3 ML VIAL INH ONE (14:45)
[2023-05-04] MEDS ORDERED: predniSONE 20 MG TABLET PO ONE (14:45)
[2023-05-04] MEDS ORDERED: predniSONE 20 MG TABLET ONE (15:01)
--- NOTE | 2023-05-04 15:18 | Diagnostic Imaging Report ---
INDICATION: Cough Single AP view of the chest is obtained. COMPARISON: 10/19/2022 FINDINGS: Heart size and pulmonary vascularity are within normal limits, and the lungs are clear, bilaterally. IMPRESSION: Unremarkable chest. Dictated by: Dictated on workstation # [id number]
[2023-05-04] MEDS ORDERED: RT-ALBUTEROL SULF 2.5 MG/3 ML PRE-MIX VIAL INH ONE (15:30)
[2023-05-04] MEDS ORDERED: PRD50T PO (15:49)
[2023-05-04] MEDS ORDERED: RT-ALBUINH INH (15:49)
[2023-05-04 16:02] VITALS: BP 158/95
== END 2023-05-04 16:00 | disposition home or self-care (01) ==
LOC: EDUNIT# 14:12 → ER 14:14
DX: J40 Bronchitis, not specified as acute or chronic (principal); F17.210 Nicotine dependence, cigarettes, uncomplicated; Z87.09 Personal history of other diseases of the respiratory system
CPT/HCPCS: 71045; 87636; 93005; 94640